=== PATIENT | male | born 1945 | race Caucasian/White ===

== ENCOUNTER → 2018-01-20 11:03 | Outpatient (CLI) | payer MEDICARE, SELFPAY ==
--- NOTE | 2018-01-20 | DI.CT.S_ITS ---
PROCEDURE: CT THORACIC SPINE WO CON INDICATIONS: RIGHT UPPER THORACIC PAIN TECHNIQUE: Noncontrast 3 mm thick sections acquired through the region of interest in the thoracic spine. Sagittal and coronal reformats were then constructed. For radiation dose reduction, the following was used: automated exposure control. COMPARISON: [facility], CT, LUMBAR OR SACRAL SPINE WO CONT, 02/25/2015, 15:19. [facility], CR, THORACIC SPINE 2 VIEWS, 02/25/2015, 8:36. [facility], CT, T-SPINE WITHOUT CONTRAST, 06/01/2014, 10:46. FINDINGS: Image quality: Excellent. Bones: T4 vertebroplasty again noted. There is extensive thoracic and lumbar posterior spinal instrumentation with paraspinal rods and pedicle screws extending from T4-L3 and beyond the study [id number]. Hardware appears grossly intact and unchanged alignment. No evidence of hardware loosening. No definite acute fracture is seen. There is chronic unchanged T9 and T10 compression fractures without definite vertebral body height loss since the prior study. There is diffuse osteopenia. No high-grade bony canal stenosis. On the right, there is moderate right T8-T9 bony foraminal narrowing and mild T9-T10, T10-T11 foraminal narrowing. On the left, there is moderate T8-T9 and T9-T10 bony foraminal narrowing. There is mild T10-T11 foraminal narrowing. Soft tissues: No paravertebral masses or hematomas. Visualized posteromedial lungs appear clear. Cardiomegaly and coronary artery calcifications are present. Partially visualized exophytic right renal lesion, is indeterminate and partially obscured by motion artifact, although appears to be present on the prior study from 02/25/15. Further evaluation with ultrasound could be performed as clinically warranted. Bilateral renal hilar vascular calcifications. IMPRESSION: Bilateral bony foraminal stenoses, primarily at the level of T8-T11 as detailed above. Overall, no definite interval change since 06/01/14 Chronic T9 and T10 compression fractures without progressive vertebral body height loss. Extensive posterior spinal surgical instrumentation from T4-L3, with paraspinal ynes and pedicle screws. Dictated by: William Mares M.D. on 01/20/2018 at 11:37 Approved by: William Mares M.D. on 01/20/2018 at 11:57
== END ==
PROVIDERS: Family Provider Internal Medicine; PCP Internal Medicine; Visit Provider Orthopaedic Surgery
DX: M48.04 Spinal stenosis, thoracic region (principal); M54.6 Pain in thoracic spine
CPT/HCPCS: 72128

== ENCOUNTER → 2018-04-12 14:44 | Outpatient (CLI) | payer MEDICARE, SELFPAY ==
--- NOTE | 2018-04-12 | DI.RAD.S_ITS ---
PROCEDURE: XR CHEST 2V INDICATIONS: CHRONIC DIASTOLIC HEART FAILURE TECHNIQUE: 2 views of the chest were acquired. COMPARISON: [facility], , CHEST 1 VIEW, 09/12/2017, 9:33. [facility], , CHEST 1 VIEW, 09/06/2017, 5:18. [facility], , CHEST 1 VIEW, 09/05/2017, 14:55. FINDINGS: Surgical changes and devices: Extensive spine surgery fixation devices stable over time. Lungs and pleura: No pleural effusions or pneumothorax. Lungs are edematous to a mild degree. Mediastinum: Mediastinal contours are normal. Heart size is mildly enlarged. Bones and chest wall: No suspicious bony abnormalities. Soft tissues appear unremarkable. IMPRESSION: Mild pulmonary edema pattern, mild cardiomegaly, prior extensive spine fusion surgery stable over time. Dictated by: Juan C James M.D. on 04/12/2018 at 15:43 Approved by: Juan C James M.D. on 04/12/2018 at 15:44
[2018-04-12 15:45] LABS: Add Manual Diff / Slide Review NO; Basophils Percent Auto 0.6 % (0-2); Eosinophils Percent Auto 2.2 % (2-4); Hematocrit 38.9 % (41-53); Hemoglobin 12.8 g/dL (13.5-17.5); Lymphocytes Percent Auto 19.2 % (25-40); Mean Corpuscular HGB Conc 32.9 % (30-36); Mean Corpuscular Volume 91.2 fL (80-100); Monocytes Percent Auto 8.2 % (3-14); Neutrophils Absolute Auto 6400 /uL (3000-5900); Neutrophils Percent Auto 69.8 % (50-75); Platelet Count 170 X10^3/uL (150-400); Red Blood Cell Count 4.27 X10^6/uL (4.5-5.9); Red Cell Distribution Width 15.3 % (11.6-14.8); White Blood Cell Count 9.2 X10^3/uL (4.5-11.0)
[2018-04-12 16:03] LABS: B Type Natriuretic Peptide 75.9 (<100)
[2018-04-12 21:22] LABS: Alanine Aminotransferase 21 IU/L (21-72); Albumin 3.7 g/dL (3.5-5.0); Albumin Globulin Ratio 1.4 (1.0-2.8); Alkaline Phosphatase 44 U/L (38-126); Aspartate Aminotransferase 12 IU/L (17-59); Bilirubin Total 0.4 mg/dL (0.2-1.3); Blood Urea Nitrogen 40 mg/dL (9-20); Carbon Dioxide 30 mmol/L (22-32); Chloride 97 mmol/L (98-107); Estimated Glomerular Filt Rate 32.9 mL/min (>60); Globulin 2.7 g/dL (1.7-4.1); Glucose 102 mg/dL (80-110); HEMOLYSIS < 15 (0-50); Sodium 140 mmol/L (137-145); Total Protein 6.4 g/dL (6.3-8.2)
[2018-04-12 21:31] LABS: Potassium 5.4 mmol/L (3.4-5.1)
== END ==
PROVIDERS: Family Provider Internal Medicine; PCP Internal Medicine; Visit Provider Student in an Organized Health Care Education/Training Program
DX: I11.0 Hypertensive heart disease with heart failure (principal); I50.32 Chronic diastolic (congestive) heart failure; E03.9 Hypothyroidism, unspecified; I25.10 Atherosclerotic heart disease of native coronary artery without angina pectoris; E11.9 Type 2 diabetes mellitus without complications; Z98.1 Arthrodesis status
CPT/HCPCS: 36415; 71046; 80053; 83880; 84443; 85025

== ENCOUNTER → 2018-04-13 10:17 | Outpatient (CLI) | payer MEDICARE, SELFPAY ==
[2018-04-13 12:07] LABS: Appearance Urine UA CLEAR; Bilirubin Urine UA NEGATIVE (NEGATIVE); Color Urine UA YELLOW; Glucose Urine UA NEGATIVE (Normal); Ketones Urine UA NEGATIVE (NEGATIVE); Leukocyte Esterase Urine UA NEGATIVE (NEGATIVE); Nitrite Urine UA Negative (Negative); Occult Blood Urine UA NEGATIVE (Negative); Protein Urine UA NEGATIVE (Negative); Specific Gravity Urine UA 1.015 (1.000-1.035); Urobilinogen Urine UA 0.2 E.U./dL (0.2)
== END ==
PROVIDERS: Family Provider Internal Medicine; PCP Internal Medicine; Visit Provider Student in an Organized Health Care Education/Training Program
DX: R41.0 Disorientation, unspecified (principal)
CPT/HCPCS: 81003; 87086

== ENCOUNTER → 2018-04-20 13:07 | Outpatient (CLI) | payer MEDICARE, SELFPAY ==
[2018-04-20 14:12] LABS: Blood Urea Nitrogen 36 mg/dL (9-20); Calcium 9.1 mg/dL (8.4-10.2); Carbon Dioxide 39 mmol/L (22-32); Chloride 96 mmol/L (98-107); Estimated Glomerular Filt Rate 59.3 mL/min (>60); Glucose 88 mg/dL (80-110); HEMOLYSIS < 15 (0-50); Potassium 5.1 mmol/L (3.4-5.1); Sodium 143 mmol/L (137-145)
== END ==
PROVIDERS: Family Provider Internal Medicine; PCP Internal Medicine; Visit Provider Internal Medicine
DX: N18.3 Chronic kidney disease, stage 3 (moderate) (principal); I50.32 Chronic diastolic (congestive) heart failure
CPT/HCPCS: 36415; 80048

== ENCOUNTER 2018-06-07 14:02 | Inpatient (IN) | payer MEDICARE, SELFPAY ==
[2018-06-07] VITALS (13 sets, daily range): BP systolic 97–129; BP diastolic 45–69; PULSE 50–64; RESP 16–20; TEMP 36.3–36.8; O2SAT 92–100; BMI 37.3; BMI 43.3
--- NOTE | 2018-06-07 | DI.ECHO.S_ITS ---
[facility] +---------+ : : [address] : : : : [id number] : : : : Phone: [phone]+ Echocardiogram Report + + :Name: ELAINE CAO Study Date: 06/08/2018 Height: 70 in : :[facility] Weight: 260 lb : : Gender: Male BSA: 2.3 m2 : :: 1945 Age: 73 yrs BP: 120/59 mmHg: :Reason For Study: COPD : : Performed By: Sarah Benson : :Referring: JOSE RAUL SAM : + + Interpretation Summary The study quality was technically difficult. A contrast injection of Definity was performed to improve assessment of LV function. The ejection fraction is estimated to be 60-65%. Borderline right ventricular enlargement. The aortic valve is moderately calcified. Leaflet mobility is moderately reduced. The aortic valve area is 1.8 centimeters squared by planimetry. There is mild tricuspid regurgitation. The right ventricular systolic pressure is estimated to be at least 52 mmHg based on an estimated right atrial pressure of 15 mm Hg. The IVC is dilated (diameter is greater than 2.1 cm) and it collapses less than 50% with a sniff. This suggests a high right atrial pressure of 15 mm Hg. The aortic arch is mildly enlarged. Procedure: A two-dimensional transthoracic echocardiogram with color flow and Doppler was performed. The study quality was technically difficult. Comparison is made with the echocardiogram of 09-06-17. A contrast injection of Definity was performed to improve assessment of LV function. The heart rate ranged between 73-76 bpm during the study. Left Ventricle: The left ventricle is normal in size, wall thickness, and systolic function without any focal wall motion abnormalities. The ejection fraction is estimated to be 60-65%. Left ventricular wall motion is normal. Diastolic function could not be accurately assessed due to unobtainable data. Right Ventricle: Borderline right ventricular enlargement. Right ventricular systolic function is mildly reduced. Atria: The left atrium is not well visualized. Right atrial size is normal. The interatrial septum is intact with no evidence for an atrial septal defect. Mitral Valve: The mitral valve is grossly normal. There is no mitral regurgitation noted. Aortic Valve: The aortic valve is moderately calcified. Leaflet mobility is moderately reduced. The calculated aortic valve area is 2.5 cm2. The aortic valve area is 1.8 centimeters squared by planimetry. The peak aortic velocity is 1.9 m/sec. The peak aortic velocity on the previous exam was 1.2 m/sec. The aortic valve mean gradient is 6 mmHg. No aortic regurgitation is present. Tricuspid Valve: The tricuspid valve leaflets are thin and pliable. There is mild tricuspid regurgitation. The right ventricular systolic pressure is estimated to be at least 52 mmHg based on an estimated right atrial pressure of 15 mm Hg. Pulmonic Valve: The pulmonic valve is not well seen, but is grossly normal. There is trace pulmonic regurgitation. Great Vessels: The aortic root is mildly dilated. The ascending aorta is at the upper limits of normal in size. The aortic arch is mildly enlarged. The IVC is dilated (diameter is greater than 2.1 cm) and it collapses less than 50% with a sniff. This suggests a high right atrial pressure of 15 mm Hg. Pericardium/ Pleura There is a trivial to small pericardial effusion noted. There is no pleural effusion. MMode/2D Measurements & Calculations LVIDd: 4.5 cm LVOT diam: 2.7 cm LVIDs: 2.8 cm Ao root diam: 3.9 cm FS: 37.4 % Aortic Jxn: 3.1 cm EPSS: 0.93 cm asc Aorta Diam: 3.5 cm IVSd: 0.96 cm Ao Arch Diam (Prox Trans): 3.7 cm LVPWd: 0.74 cm LV estes. diameter/BSA (cm/m^2): 1.9 LV sys. diameter/BSA (cm/m^2): 1.2 LA dimension: 4.0 cm RA long axis: 5.8 cm RA area: 20.7 cm2 RA vol: 63.0 ml RA : 27.0 ml/m2 IVC diam: 2.5 cm RVDd major: 7.1 cm RVD1 (basal): 4.2 cm RVD2 (mid): 3.7 cm MERON (plan): 1.8 cm2 Doppler Measurements & Calculations Ao V2 max: 188.2 cm/sec LVOT Max Cristóbal: 84.3 cm/sec Ao V2 mean: 103.6 cm/sec LV V1 max P.8 mmHg Ao max P.2 mmHg LV V1 VTI: 20.5 cm Ao mean P.6 mmHg MERON(I,D): 3.5 cm2 Ao V2 VTI: 32.8 cm MERON(V,D): 2.5 cm2 sev ratio: 0.62 MERON indexed to BSA (cm^2/m^2): 1.5 MV E max cristóbal: 66.4 cm/sec TR max cristóbal: 304.9 cm/sec MV A max cristóbal: 82.0 cm/sec TR max P.2 mmHg MV E/A: 0.81 PA V2 max: 105.8 cm/sec Med Peak E' Cristóbal: 6.9 cm/sec PA V2 mean: 62.7 cm/sec E/E' med: 9.6 PA mean P.0 mmHg Lat Peak E' Cristóbal: 6.4 cm/sec PA Accel Time: 0.16 sec E/E' lat: 10.3 E/e' average: 9.9 MV dec time: 0.29 sec MV P1/2t: 83.7 msec MV P1/2t max cristóbal: 66.1 cm/sec MVA(P1/2t): 2.6 cm2 Reading Physician:02:29 PM
--- NOTE | 2018-06-07 14:18 | ED.AMS ---
HPI - Altered Mental Status General Chief Complaint: Shortness of Breath/Dyspnea Stated Complaint: ALOC Time Seen by Provider: 06/07/18 14:10 Source: EMS Mode of arrival: EMS Limitations: altered mental status History of Present Illness HPI narrative: 73-year-old male brought in by EMS for concerns of altered mental status. Unable to obtain much more min HPI secondary to the patient's altered mental status. Some concern about narcotic overdose by EMS. He did state that they found the patient at home hypoxic with a oxygen saturations in the 50s with a good waveform. This did improve with non-rebreather on 15 L. Related Data Home Medications Medication Instructions Recorded Confirmed albuterol sulfate [Ventolin HFA] 2 puff INH Q6HP PRN #0 puff 05/20/13 06/07/18 lisinopril 5 mg PO HS #0 tab 05/20/13 06/07/18 polyethylene glycol 3350 [Miralax] 17 gm PO QDAYP PRN #0 05/20/13 06/07/18 diazepam 5 mg PO HSP PRN #0 09/05/17 06/07/18 gabapentin [Neurontin] 600 mg PO BEDTIME #0 09/05/17 06/07/18 glimepiride 1 mg PO BIDCC #0 09/05/17 06/07/18 levothyroxine 1 tab PO QAM #0 09/05/17 06/07/18 oxycodone 5 mg PO Q3H #0 09/05/17 06/07/18 oxycodone 10 mg PO QDAY #0 09/05/17 06/07/18 acetaminophen 2 - 5 cap PO DAILY 06/07/18 06/07/18 aspirin 81 mg PO DAILY 06/07/18 06/07/18 atorvastatin 1 tab PO BEDTIME 06/07/18 06/07/18 beclomethasone dipropionate [Qvar 2 puff INHALATION BID PRN 06/07/18 06/07/18 RediHaler] cholecalciferol (vitamin D3) 1,000 unit PO DAILY 06/07/18 06/07/18 [Vitamin D3] cyclobenzaprine 1 tab PO TID PRN 06/07/18 06/07/18 docusate sodium 100 mg PO DAILY PRN 06/07/18 06/07/18 doxazosin 8 mg PO DAILY 06/07/18 06/07/18 furosemide 40 mg PO DAILY 06/07/18 06/07/18 gabapentin 900 mg PO TID 06/07/18 06/07/18 levothyroxine 1 tab PO DAILY 06/07/18 06/07/18 multivitamin 1 tab PO DAILY 06/07/18 06/07/18 nitroglycerin 0.4 mg SUBLINGUAL Q5-15M PRN 06/07/18 06/07/18 omega [id number] oil [Fish Oil] 1 cap PO DAILY 06/07/18 06/07/18 oxybutynin chloride 1 tab PO BID 06/07/18 06/07/18 pantoprazole 1 tab PO DAILY 06/07/18 06/07/18 propranolol 1 tab PO TID 06/07/18 06/07/18 triamcinolone acetonide 1 applic TOPICAL BID 06/07/18 06/07/18 Allergies Allergy/AdvReac Type Severity Reaction Status Date / Time fentanyl [FENTANYL] Allergy Severe HIVES, Verified 06/07/18 14:48 ITCHING iodine [IODINE] Allergy Severe RASH - Verified 06/07/18 14:48 TOPICAL AND IV CONTRAST shellfish derived Allergy Severe Abdominal Verified 06/07/18 14:48 [SHELLFISH DERIVED] Pain cyclobenzaprine Allergy Intermediate ITCHING Verified 06/07/18 14:48 [CYCLOBENZAPRINE] diclofenac [DICLOFENAC] Allergy Intermediate ITCHING Verified 06/07/18 14:48 methadone [METHADONE] Allergy Intermediate ITCHING Verified 06/07/18 14:48 hydromorphone [HYDROMORPHONE] Allergy Mild ITCHING Verified 06/07/18 14:48 hydroxyzine [HYDROXYZINE] Allergy Mild FEVER, Verified 06/07/18 14:48 SWEATS ibuprofen [IBUPROFEN] Allergy Unknown Verified 06/07/18 14:48 aspirin [ASPIRIN] AdvReac Severe STOMACH Verified 06/07/18 14:48 PAIN & HIVE W/325MG, CAN TAKE 81 MG solifenacin [From [facility]ESICARE] AdvReac Unknown INCREASE Unverified 11/25/17 12:09 PVR AND URINARY SX RACHEL AdvReac Unknown DOES NOT Uncoded 11/25/17 12:09 WORK Review of Systems Review of Systems unobtainable due to mental status Exam Initial Vital Signs Initial Vital Signs: Vital Signs Temperature 98.2 F 06/07/18 14:00 Pulse Rate 56 L 06/07/18 14:00 Respiratory Rate 20 06/07/18 14:00 Blood Pressure 117/55 L 06/07/18 14:00 Pulse Oximetry 96 06/07/18 14:00 Const General: in distress and diaphoretic Orientation: obtunded Limitations: altered mental status [facility] Head: normal to inspection and normocephalic Eyes Pupils: pinpoint and other (Pupils 2 mm fixed dilated) Chest Chest: normal inspection of the chest Resp Effort & Inspection: not labored, no retractions and tachypneic Auscultation: diminished lung sounds Cardio Rate: bradycardic Rhythm: regular rhythm Pulses: radial pulses present GI Inspection: non-distended Palpation: soft External: normal external exam Skin Lesions: no lesions Rashes: no rashes Neuro Other: Patient was arousable to deep stimulation however would not follow commands. Unable to obtain neurologic exam otherwise Extrem General: capillary refill normal, edema and other (Bilateral chronic venous stasis changes) Psych Appearance: disheveled Procedures Intubation Time out performed: Yes sedative: Etomidate Mg Given: 20 paralytic: Succinylcholine Mg Given: 120 Laryngoscope: other ([place] scope) ET Tube Size: 7.5 ET Tube Uncuffed: No Tube Secured Depth (cm): 22 Tube Secured Location: teeth Tube Placement Confirmation: Visualized tube passing through cords, Equal breath sounds bilaterally, No breath sounds over epigastrium, Confirmation by capnometry and Chest Xray Patient Tolerated Procedure: No complications Intubation Complications: none Scores GCS Combs coma scale eye opening: To pressure Lucho coma scale verbal response: Sounds Combs coma scale motor response: None Combs coma scale total score: 5 Course Orders Ordered: ED Orders 06/07/18 14:19 Arterial Blood Gas Stat 06/07/18 14:20 XR chest 1V Stat EKG-12 Lead Stat 06/07/18 14:25 Arterial Blood Gas Stat 06/07/18 15:00 B Type Natriuretic Peptide Stat Complete Blood Count AUTO DIFF Stat Comprehensive Metabolic Panel Stat Ethanol (ETOH) Stat Lactate (Lactic Acid) Stat Lipase Stat Procalcitonin Stat Thyroid Stimulating Hormone Stat Troponin I Stat 06/07/18 15:43 XR chest 1V Stat 06/07/18 16:09 CT chest wo con Stat 06/07/18 16:49 RT Consult Eval and Treat Now 06/07/18 16:53 Ventilator Order 06/07/18 17:35 Blood Culture Stat Troponin I Stat 06/07/18 19:00 MRSA PCR Urgent 06/07/18 19:01 Consult to Dietitian, Adult Routine 06/07/18 20:26 XR KUB Stat 06/08/18 05:00 Basic Metabolic Panel Routine Complete Blood Count AUTO DIFF Routine Albuterol/Ipratropium (Duoneb) 3 ml INH RTQ6HR PRN PRN Reason: Shortness Of Breath Furosemide (Lasix) 40 mg IV Q12HR LUIS FELIPE Heparin Sodium (Porcine) (Heparin) 5,000 unit SUBCUT BID LUIS FELIPE Levofloxacin (Levaquin) 750 mg in 150 mls @ 100 mls/hr IV Q24H LUIS FELIPE Propofol (Propofol) 1,000 mg in 100 mls @ 3.538 mls/hr IV TITRATE LUIS FELIPE; Protocol Last Admin: 06/07/18 19:21 Dose: Naloxone HCl (Narcan) 0.4 mg IV Q2MIN PRN PRN Reason: Opiate Reversal Last Admin: 06/07/18 14:21 Dose: 0.4 mg Naloxone HCl (Narcan) 0.4 mg IV Q2MIN PRN PRN Reason: Opiate Reversal Last Admin: 06/07/18 14:30 Dose: 0.4 mg Pantoprazole Sodium (Protonix) 40 mg IV DAILY LUIS FELIPE Discontinued Medications Etomidate (Amidate) 20 mg IV NOW ONE Stop: 06/07/18 15:49 Last Admin: 06/07/18 16:04 Dose: 20 mg Furosemide (Lasix) 60 mg IV NOW ONE Stop: 06/07/18 16:09 Last Admin: 06/07/18 17:23 Dose: 60 mg Sodium Chloride (Normal Saline 0.9%) 1,000 mls @ 1,000 mls/hr IV BOLUS ONE Stop: 06/07/18 15:17 Last Infusion: 06/07/18 17:14 Dose: 0 mls/hr Admin: 06/07/18 14:30 Dose: 1,000 mls/hr Lactated Ringer's (Lactated Ringers) 1,000 mls @ 1,000 mls/hr IV BOLUS ONE Stop: 06/07/18 16:42 Last Infusion: 06/07/18 17:14 Dose: 0 mls/hr Admin: 06/07/18 16:03 Dose: 1,000 mls/hr Levofloxacin (Levaquin) 750 mg in 150 mls @ 100 mls/hr IV NOW ONE Stop: 06/07/18 17:13 Last Admin: 06/07/18 16:05 Dose: 100 mls/hr Propofol (Propofol) 1,000 mg in 100 mls @ 3.538 mls/hr IV TITRATE LUIS FELIPE; Protocol Last Titration: 06/07/18 18:55 Dose: 20 mcg/kg/min, 14.152 mls/hr Titration: 06/07/18 18:40 Dose: 10 mcg/kg/min, 7.076 mls/hr Admin: 06/07/18 16:09 Dose: 5 mcg/kg/min, 3.538 mls/hr Fentanyl 1,000 mcg/ Dextrose 270 mls @ 22.28 mls/hr IV TITRATE LUIS FELIPE; Protocol Last Admin: 06/07/18 20:01 Dose: Not Given Succinylcholine Chloride (Quelicin) 120 mg IV NOW ONE Stop: 06/07/18 15:49 Last Admin: 06/07/18 16:04 Dose: 120 mg Vital Signs - 8 hr 06/07/18 14:00 06/07/18 16:09 06/07/18 17:47 Temperature 98.2 F Pulse Rate 56 L 52 L 53 L Respiratory Rate 20 18 16 Blood Pressure 117/55 L Blood Pressure [Right Arm] 103/45 L 115/50 L Pulse Oximetry 96 92 96 06/07/18 18:02 06/07/18 18:29 06/07/18 19:00 Temperature 98.0 F Pulse Rate 50 L 54 L 54 L Respiratory Rate 18 18 19 Blood Pressure 97/55 L 129/58 L Blood Pressure [Right Arm] 104/53 L Pulse Oximetry 95 97 MDM - Altered Mental Status Medical Records Attestation: I reviewed the patient's medical records. Lab Data Attestation: I reviewed the patient's lab results. Result diagrams: 06/07/18 15:00 06/07/18 15:00 Lab Results 06/07/18 06/07/18 06/07/18 Range/Units 14:25 15:00 15:00 WBC 10.0 (4.5-11.0) X10^3/uL RBC 4.50 (4.5-5.9) X10^6/uL Hgb 12.9 L (13.5-17.5) g/dL Hct 41.5 (41-53) % MCV 92.1 (80-100) fL MCH 28.7 (26-34) PG MCHC 31.1 (30-36) % RDW 16.7 H (11.6-14.8) % Plt Count 171 (150-400) X10^3/uL Neut % (Auto) 76.5 H (50-75) % Lymph % (Auto) 12.8 L (25-40) % [place] % (Auto) 8.5 (3-14) % Eos % (Auto) 1.6 L (2-4) % Baso % (Auto) 0.6 (0-2) % Neut # (Auto) 7700 H (6602-9075) /uL ABG pH 7.17 L* (7.35-7.45) ABG pCO2 114.4 H* (35-45) mmHg ABG pO2 107 H (80-105) mmHg ABG HCO3 42 H (23-27) mmol/L ABG Total CO2 45 H (23-27) mmol/L ABG O2 Saturation 96 (95-100) % ABG Base Excess 13.0 H (-2-3) mmol/L FiO2 100 Sodium 143 (137-145) mmol/L Potassium 4.8 (3.4-5.1) mmol/L Chloride 95 L (98-107) mmol/L Carbon Dioxide 38 H (22-32) mmol/L BUN 40 H (9-20) mg/dL Creatinine 1.30 H (0.66-1.25) mg/dL Estimated GFR 54.1 L (>60) mL/min BUN/Creatinine Ratio 30.8 H (6-22) Glucose 164 H (80-110) mg/dL Lactate (0.7-2.1) mmol/L Calcium 8.5 (8.4-10.2) mg/dL Total Bilirubin 0.7 (0.2-1.3) mg/dL AST 13 L (17-59) IU/L ALT 24 (21-72) IU/L Alkaline Phosphatase 44 (38-126) U/L Troponin I 0.065 H (0.01-0.034) ng/mL B-Natriuretic Peptide 289.0 H (<100) Total Protein 6.4 (6.3-8.2) g/dL Albumin 3.6 (3.5-5.0) g/dL Globulin 2.8 (1.7-4.1) g/dL Albumin/Globulin Ratio 1.3 (1.0-2.8) Lipase < 10 L (23-300) U/L Procalcitonin (<0.5) ng/mL TSH (0.47-4.68) uIU/mL Ethyl Alcohol < 10 mg/dL 06/07/18 06/07/18 06/07/18 Range/Units 15:00 15:00 15:00 WBC (4.5-11.0) X10^3/uL RBC (4.5-5.9) X10^6/uL Hgb (13.5-17.5) g/dL Hct (41-53) % MCV (80-100) fL MCH (26-34) PG MCHC (30-36) % RDW (11.6-14.8) % Plt Count (150-400) X10^3/uL Neut % (Auto) (50-75) % Lymph % (Auto) (25-40) % [place] % (Auto) (3-14) % Eos % (Auto) (2-4) % Baso % (Auto) (0-2) % Neut # (Auto) (0335-7839) /uL ABG pH (7.35-7.45) ABG pCO2 (35-45) mmHg ABG pO2 (80-105) mmHg ABG HCO3 (23-27) mmol/L ABG Total CO2 (23-27) mmol/L ABG O2 Saturation (95-100) % ABG Base Excess (-2-3) mmol/L FiO2 Sodium (137-145) mmol/L Potassium (3.4-5.1) mmol/L Chloride (98-107) mmol/L Carbon Dioxide (22-32) mmol/L BUN (9-20) mg/dL Creatinine (0.66-1.25) mg/dL Estimated GFR (>60) mL/min BUN/Creatinine Ratio (6-22) Glucose (80-110) mg/dL Lactate 0.8 (0.7-2.1) mmol/L Calcium (8.4-10.2) mg/dL Total Bilirubin (0.2-1.3) mg/dL AST (17-59) IU/L ALT (21-72) IU/L Alkaline Phosphatase (38-126) U/L Troponin I (0.01-0.034) ng/mL B-Natriuretic Peptide (<100) Total Protein (6.3-8.2) g/dL Albumin (3.5-5.0) g/dL Globulin (1.7-4.1) g/dL Albumin/Globulin Ratio (1.0-2.8) Lipase (23-300) U/L Procalcitonin < 0.05 (<0.5) ng/mL TSH 0.40 L (0.47-4.68) uIU/mL Ethyl Alcohol mg/dL 06/07/18 Range/Units 17:35 WBC (4.5-11.0) X10^3/uL RBC (4.5-5.9) X10^6/uL Hgb (13.5-17.5) g/dL Hct (41-53) % MCV (80-100) fL MCH (26-34) PG MCHC (30-36) % RDW (11.6-14.8) % Plt Count (150-400) X10^3/uL Neut % (Auto) (50-75) % Lymph % (Auto) (25-40) % [place] % (Auto) (3-14) % Eos % (Auto) (2-4) % Baso % (Auto) (0-2) % Neut # (Auto) (0273-3497) /uL ABG pH (7.35-7.45) ABG pCO2 (35-45) mmHg ABG pO2 (80-105) mmHg ABG HCO3 (23-27) mmol/L ABG Total CO2 (23-27) mmol/L ABG O2 Saturation (95-100) % ABG Base Excess (-2-3) mmol/L FiO2 Sodium (137-145) mmol/L Potassium (3.4-5.1) mmol/L Chloride (98-107) mmol/L Carbon Dioxide (22-32) mmol/L BUN (9-20) mg/dL Creatinine (0.66-1.25) mg/dL Estimated GFR (>60) mL/min BUN/Creatinine Ratio (6-22) Glucose (80-110) mg/dL Lactate (0.7-2.1) mmol/L Calcium (8.4-10.2) mg/dL Total Bilirubin (0.2-1.3) mg/dL AST (17-59) IU/L ALT (21-72) IU/L Alkaline Phosphatase (38-126) U/L Troponin I 0.078 H (0.01-0.034) ng/mL B-Natriuretic Peptide (<100) Total Protein (6.3-8.2) g/dL Albumin (3.5-5.0) g/dL Globulin (1.7-4.1) g/dL Albumin/Globulin Ratio (1.0-2.8) Lipase (23-300) U/L Procalcitonin (<0.5) ng/mL TSH (0.47-4.68) uIU/mL Ethyl Alcohol mg/dL Point of Care Testing Glucose POC 152 Urine Dip Bedside Urine Glucose Negative Bedside Urine Bilirubin - Negative Bedside Urine Ketone - Negative Urine Specific [place] 1.020 Bedside Urine Occult Blood - Negative Bedside Urine pH 6.0 Bedside Urine Protein - Negative Bedside Urine Urobilinogen - Negative Bedside Urine Nitrite - Negative Bedside Urine Leukocytes - Negative Esterase ABG Data Attestation: I personally reviewed and interpreted this ABG as follows: Interpretation: Respiratory acidosis pH 7.1 P CO2 of 114 bicarb 41 Imaging Data Chest x-ray: Radiologist's impression: PROCEDURE: XR CHEST 1V INDICATIONS: shortness of breath TECHNIQUE: One view of the chest was acquired. COMPARISON: [facility], , XR CHEST 2V, 04/12/2018, 14:26. FINDINGS: Surgical changes and devices: Extensive postoperative changes of the spine are evident. Lungs and pleura: There are low lung volumes and the patient is in somewhat lordotic positioning, resulting in difficulty evaluating the lungs, particularly at the lung bases. There is developing airspace disease identified at the left lung base that obscures the diaphragm. Prominent perihilar interstitial markings are present. Mediastinum: Mediastinal contours appear normal. The heart is enlarged. There is aortic atherosclerosis. Bones and chest wall: No suspicious bony lesions. Overlying soft tissues appear unremarkable. IMPRESSION: 1. Left basilar consolidation is suspicious for pneumonia versus atelectasis. 2. Cardiomegaly with probable developing pulmonary edema. Dictated by: Jean-Pierre Johnson M.D. on 06/07/2018 at 14:32 Approved by: Jean-Pierre Johnson M.D. on 06/07/2018 at 14:33 Chest x-ray post intubation: Radiologist's impression: [address] [address] XRay Report Signed Patient: Bossman Denton CMR#: [id number] : 5Acct:[id number] Age/Sex: 73 / MDate of Service: 06/07/18 Loc: [id number] Accession Number: [id number] Procedure: XR chest 1V Ordering Provider: Bossman Purdy D.O. PROCEDURE: XR CHEST 1V INDICATIONS: post intubation TECHNIQUE: One view of the chest was acquired. COMPARISON: [facility], , XR CHEST 1V, 06/07/2018, 15:09. FINDINGS: Surgical changes and devices: There has been interval placement of an endotracheal tube, which is positioned approximately 6.4 cm above the level of the gareth. Postoperative changes of the thoracolumbar spine are not adequately characterized. Lungs and pleura: Mild interval improvement in the aeration of the lungs is evident with improving aeration at the left lung base. There continues to be mild to moderate consolidation at the left lung base with possible small left-sided pleural effusion. There may also be mild airspace disease at the right lung base. Mediastinum: Mediastinal contours appear normal. Heart size is normal. Bones and chest wall: No suspicious bony lesions. Overlying soft tissues appear unremarkable. IMPRESSION: 1. Improved aeration of the lungs, status post intubation. 2. Residual bibasilar airspace disease probably represents atelectasis and/or pneumonia. There may be a small left-sided pleural effusion. Dictated by: Jean-Pierre Johnson M.D. on 06/07/2018 at 15:08 Approved by: Jean-Pierre Johnson M.D. on 06/07/2018 at 15:09 ECG Data Attestation: I personally reviewed and interpreted this ECG as follows: Prior ECG tracings: not available for review Interpretation: Sinus bradycardia Normal axis QRS duration 153 milliseconds Normal QTC Right bundle branch block No ST T wave changes MDM Narrative Medical decision making narrative: Patient was given 2 separate doses of 0.4 mg of Narcan upon arrival here to the emergency department which did improve his responsiveness somewhat. I have seen this patient in the past. He is a COPD patient I have seen him with a very elevated CO2 in the past and respond to BiPAP. He was placed on BiPAP. I discussed the case with the hospitalist who came to evaluate him in the emergency department. Upon her evaluation she asked me to re-evaluate the patient seeing as how he was very unresponsive. Upon my re-evaluation the patient was much more up tended then initially arriving here in the emergency department the decision was made to intubate the patient which was done without problems with the glide scope. Sedation was maintained with propofol. The chest CT was ordered per recommendation of the admitting provider while the patient was still here in the emergency department. She will follow up on the results of that study. Will admit the patient to the ICU for respiratory acidosis most likely secondary to his COPD exacerbation. Patient's is at bedside and she knows this admission and agrees with the admission. She also agreed with the intubation. Discharge Plan Departure Patient Disposition: Admitted As Inpatient Clinical Impression: COPD (chronic obstructive pulmonary disease), Hypoxia, Altered mental status Discharge Date/Time: 06/07/18 18:29 Interventions: ED Discharge Assessment Last Done: 06/07/18 18:29 Admit Date/Time: 06/07/18 16:02 Admit Provider: Evette Garcia
[2018-06-07] MEDS: NALOXONE 0.4 MG/ML VIAL IV ×2 (14:21→14:30)
[2018-06-07] MEDS: SODIUM CHLORIDE 0.9% 1,000 ML 1000 ML IV (14:30)
[2018-06-07 15:10] LABS: Add Manual Diff / Slide Review NO; Basophils Percent Auto 0.6 % (0-2); Eosinophils Percent Auto 1.6 % (2-4); Hematocrit 41.5 % (41-53); Hemoglobin 12.9 g/dL (13.5-17.5); Lymphocytes Percent Auto 12.8 % (25-40); Mean Corpuscular HGB Conc 31.1 % (30-36); Mean Corpuscular Hemoglobin 28.7 PG (26-34); Mean Corpuscular Volume 92.1 fL (80-100); Monocytes Percent Auto 8.5 % (3-14); Neutrophils Absolute Auto 7700 /uL (3000-5900); Neutrophils Percent Auto 76.5 % (50-75); Platelet Count 171 X10^3/uL (150-400); Red Cell Distribution Width 16.7 % (11.6-14.8)
[2018-06-07 15:16] LABS: Fractionated Inspired Oxygen 100; HCO3 ABG 42 mmol/L (23-27); Oxygen Saturation ABG 96 % (95-100); PCO2 ABG 114.4 mmHg (35-45); PO2 ABG 107 mmHg (80-105); TCO2 ABG 45 mmol/L (23-27); pH ABG 7.17 (7.35-7.45)
[2018-06-07 15:22] LABS: Lactate (Lactic Acid) 0.8 mmol/L (0.7-2.1)
[2018-06-07 15:24] LABS: Alanine Aminotransferase 24 IU/L (21-72); Albumin 3.6 g/dL (3.5-5.0); Albumin Globulin Ratio 1.3 (1.0-2.8); Alkaline Phosphatase 44 U/L (38-126); Aspartate Aminotransferase 13 IU/L (17-59); BUN Creatinine Ratio 30.8 (6-22); Bilirubin Total 0.7 mg/dL (0.2-1.3); Blood Urea Nitrogen 40 mg/dL (9-20); Calcium 8.5 mg/dL (8.4-10.2); Chloride 95 mmol/L (98-107); Estimated Glomerular Filt Rate 54.1 mL/min (>60); Ethanol (ETOH) < 10 mg/dL; Globulin 2.8 g/dL (1.7-4.1); Glucose 164 mg/dL (80-110); HEMOLYSIS < 15 (0-50); Potassium 4.8 mmol/L (3.4-5.1); Sodium 143 mmol/L (137-145); Total Protein 6.4 g/dL (6.3-8.2)
[2018-06-07 15:25] LABS: Lipase < 10 U/L (23-300)
[2018-06-07 15:35] LABS: Troponin I 0.065 ng/mL (0.01-0.034)
[2018-06-07 15:42] LABS: Carbon Dioxide 38 mmol/L (22-32)
--- NOTE | 2018-06-07 15:43 | DI.RAD.S_ITS ---
PROCEDURE: XR CHEST 1V INDICATIONS: post intubation TECHNIQUE: One view of the chest was acquired. COMPARISON: [facility], CR, XR CHEST 1V, 06/07/2018, 15:09. FINDINGS: Surgical changes and devices: There has been interval placement of an endotracheal tube, which is positioned approximately 6.4 cm above the level of the gareth. Postoperative changes of the thoracolumbar spine are not adequately characterized. Lungs and pleura: Mild interval improvement in the aeration of the lungs is evident with improving aeration at the left lung base. There continues to be mild to moderate consolidation at the left lung base with possible small left-sided pleural effusion. There may also be mild airspace disease at the right lung base. Mediastinum: Mediastinal contours appear normal. Heart size is normal. Bones and chest wall: No suspicious bony lesions. Overlying soft tissues appear unremarkable. IMPRESSION: 1. Improved aeration of the lungs, status post intubation. 2. Residual bibasilar airspace disease probably represents atelectasis and/or pneumonia. There may be a small left-sided pleural effusion. Dictated by: Jean-Pierre Johnson M.D. on 06/07/2018 at 15:08 Approved by: Jean-Pierre Johnson M.D. on 06/07/2018 at 15:09
[2018-06-07 15:50] LABS: Procalcitonin < 0.05 ng/mL (<0.5)
--- NOTE | 2018-06-07 15:51 | PM.HP.1 ---
History of Present Illness Date Patient Seen: 06/07/18 Time Patient Seen: 15:51 Chief complaint: ALOC Narrative: 73-year-old male with past medical history of CHF, COPD on trilogy but non compliant with the machine, hypertension, CAD status post stenting, hypothyroidism, hyperlipidemia, anemia, diabetes presented to emergency department due to altered mental status. As per patient's , she has noted patient to become increasingly lethargic and unresponsive over the course of the week. She has noted patient to be with decreased p.o. intake, sleeping a lot more, getting out of bed most frequently over the past week. She has not noted patient to have any fevers or chills, with nausea/vomiting, complains of shortness of breath, complains of abdominal pain, complains of symptoms. Today patient has not been answering her questions, or fallowing much of her commands, so she called an ambulance for the patient. As per EMS, patient was found to be hypoxic and 50s, and was placed on BiPAP EN route to the hospital. In the emergency department, patient was initially found to be lethargic, but following minimal commands. He is afebrile, with stable blood pressure, and pulse of 56. He was saturating 96% on BiPAP. He was given .4x2 narcan with mild improvement in mentation. ABG performed, which showed 7.1/114/107. Lab work revealed WBCs of 10, hemoglobin 12.9, hematocrit 41.5, platelets 171. Sodium 143, potassium 4.8, chloride 95, carbon dioxide 38, BUN 40, creatinine 0.3, glucose 164. Lactate was 0.8. BNP was 289. Procalcitonin was 0.05. Chest x-ray performed, which showed left basilar consolidation suspicious for pneumonia versus atelectasis, and cardiomegaly with probable developing pulmonary edema (however it was difficult to evaluate patient's lungs on this x-ray due to body habitus and positioning). Patient was continued on BiPAP over the course of 1-2 hours. Nevertheless, his condition continued to deteriorate, and patient became unresponsive around 3:30 p.m. the decision was then made to intubate the patient and transfer to ICU for further care. He was given levofloxacin 750 mg IV, Lasix 40 mg IV, and CT chest was performed. Patient History Medical History COPD (chronic obstructive pulmonary disease) (Acute) Diastolic CHF (Acute) Anemia (Chronic) CAD (coronary artery disease), [place] coronary artery (Chronic) Diabetes mellitus (Chronic) GERD (gastroesophageal reflux disease) (Chronic) HLD (hyperlipidemia) (Chronic) HTN (hypertension) (Chronic) Surgical History H/O abdominal surgery (Chronic) Family & Social History Social History: Quit Tobacco use Sep 2017 As per , no alcohol or other drug use Lives with Meds Home Medications Medication Instructions Recorded Confirmed Type albuterol sulfate [Ventolin HFA] 2 puff INH Q6HP PRN #0 puff 05/20/13 06/07/18 History lisinopril 5 mg PO HS #0 tab 05/20/13 06/07/18 History polyethylene glycol 3350 [Miralax] 17 gm PO QDAYP PRN #0 05/20/13 06/07/18 History diazepam 5 mg PO HSP PRN #0 09/05/17 06/07/18 History gabapentin [Neurontin] 600 mg PO BEDTIME #0 09/05/17 06/07/18 History glimepiride 1 mg PO BIDCC #0 09/05/17 06/07/18 History levothyroxine 1 tab PO QAM #0 09/05/17 06/07/18 History oxycodone 5 mg PO Q3H #0 09/05/17 06/07/18 History oxycodone 10 mg PO QDAY #0 09/05/17 06/07/18 History acetaminophen 2 - 5 cap PO DAILY 06/07/18 06/07/18 History aspirin 81 mg PO DAILY 06/07/18 06/07/18 History atorvastatin 1 tab PO BEDTIME 06/07/18 06/07/18 History beclomethasone dipropionate [Qvar 2 puff INHALATION BID PRN 06/07/18 06/07/18 History RediHaler] cholecalciferol (vitamin D3) 1,000 unit PO DAILY 06/07/18 06/07/18 History [Vitamin D3] cyclobenzaprine 1 tab PO TID PRN 06/07/18 06/07/18 History docusate sodium 100 mg PO DAILY PRN 06/07/18 06/07/18 History doxazosin 8 mg PO DAILY 06/07/18 06/07/18 History furosemide 40 mg PO DAILY 06/07/18 06/07/18 History gabapentin 900 mg PO TID 06/07/18 06/07/18 History levothyroxine 1 tab PO DAILY 06/07/18 06/07/18 History multivitamin 1 tab PO DAILY 06/07/18 06/07/18 History nitroglycerin 0.4 mg SUBLINGUAL Q5-15M PRN 06/07/18 06/07/18 History omega [id number] oil [Fish Oil] 1 cap PO DAILY 06/07/18 06/07/18 History oxybutynin chloride 1 tab PO BID 06/07/18 06/07/18 History pantoprazole 1 tab PO DAILY 06/07/18 06/07/18 History propranolol 1 tab PO TID 06/07/18 06/07/18 History triamcinolone acetonide 1 applic TOPICAL BID 06/07/18 06/07/18 History Allergies Allergy/AdvReac Type Severity Reaction Status Date / Time fentanyl [FENTANYL] Allergy Severe HIVES, Verified 06/07/18 14:48 ITCHING iodine [IODINE] Allergy Severe RASH - Verified 06/07/18 14:48 TOPICAL AND IV CONTRAST shellfish derived Allergy Severe Abdominal Verified 06/07/18 14:48 [SHELLFISH DERIVED] Pain cyclobenzaprine Allergy Intermediate ITCHING Verified 06/07/18 14:48 [CYCLOBENZAPRINE] diclofenac [DICLOFENAC] Allergy Intermediate ITCHING Verified 06/07/18 14:48 methadone [METHADONE] Allergy Intermediate ITCHING Verified 06/07/18 14:48 hydromorphone [HYDROMORPHONE] Allergy Mild ITCHING Verified 06/07/18 14:48 hydroxyzine [HYDROXYZINE] Allergy Mild FEVER, Verified 06/07/18 14:48 SWEATS ibuprofen [IBUPROFEN] Allergy Unknown Verified 06/07/18 14:48 aspirin [ASPIRIN] AdvReac Severe STOMACH Verified 06/07/18 14:48 PAIN & HIVE W/325MG, CAN TAKE 81 MG solifenacin [From [facility]] AdvReac Unknown INCREASE Unverified 11/25/17 12:09 PVR AND URINARY SX RACHEL AdvReac Unknown DOES NOT Uncoded 11/25/17 12:09 WORK Review of Systems Review of Systems All systems reviewed & are unremarkable except as noted in HPI and below and unobtainable due to mental status Exam Vital Signs (past 8 hours): - 06/07/18 14:00 Temperature 98.2 F Pulse Rate 56 L Respiratory Rate 20 Blood Pressure 117/55 L Pulse Oximetry 96 Oxygen Delivery Method Room Air Narrative Exam Narrative: General: Patient is seen just prior to intubation. He is unresponsive, but withdraws with painful stimuli HEENT: Pupils are mid dilated, responsive to light bilaterally Respiratory: Diminished breath sounds in lower [place] bilaterally. Uncertain of wheezing or crackles due to patient's large body habitus CV: Regular rate rhythm, no murmurs or gallops noted GI: Prior abdominal surgical scarring, healed. Positive bowel sounds in all 4 quadrants. No organomegaly. Obese abdomen. Musculoskeletal: Moves all extremities to painful stimuli Neuro: Patient withdraws to painful stimuli Psych: Patient is unresponsive. Unable to evaluate Skin: No bruising or rashes noted Objective Labs Result Diagrams: 06/07/18 15:00 06/07/18 15:00 Labs: Laboratory Results - last 24 hr 06/07/18 06/07/18 06/07/18 14:25 15:00 15:00 WBC 10.0 RBC 4.50 Hgb 12.9 L Hct 41.5 MCV 92.1 MCH 28.7 MCHC 31.1 RDW 16.7 H Plt Count 171 Neut % (Auto) 76.5 H Lymph % (Auto) 12.[address] [place] % (Auto) 8.5 Eos % (Auto) 1.6 L Baso % (Auto) 0.6 Neut # (Auto) 7700 H ABG pH 7.17 L* ABG pCO2 114.4 H* ABG pO2 107 H ABG HCO3 42 H ABG Total CO2 45 H ABG O2 Saturation 96 ABG Base Excess 13.0 H FiO2 100 Sodium 143 Potassium 4.8 Chloride 95 L Carbon Dioxide 38 H BUN 40 H Creatinine 1.30 H Estimated GFR 54.1 L BUN/Creatinine Ratio 30.8 H Glucose 164 H Lactate Calcium 8.5 Total Bilirubin 0.7 AST 13 L ALT 24 Alkaline Phosphatase 44 Troponin I 0.065 H B-Natriuretic Peptide 289.0 H Total Protein 6.4 Albumin 3.6 Globulin 2.8 Albumin/Globulin Ratio 1.3 Lipase < 10 L Procalcitonin Ethyl Alcohol < 10 06/07/18 06/07/18 15:00 15:00 WBC RBC Hgb Hct MCV MCH MCHC RDW Plt Count Neut % (Auto) Lymph % (Auto) [place] % (Auto) Eos % (Auto) Baso % (Auto) Neut # (Auto) ABG pH ABG pCO2 ABG pO2 ABG HCO3 ABG Total CO2 ABG O2 Saturation ABG Base Excess FiO2 Sodium Potassium Chloride Carbon Dioxide BUN Creatinine Estimated GFR BUN/Creatinine Ratio Glucose Lactate 0.8 Calcium Total Bilirubin AST ALT Alkaline Phosphatase Troponin I B-Natriuretic Peptide Total Protein Albumin Globulin Albumin/Globulin Ratio Lipase Procalcitonin < 0.05 Ethyl Alcohol Assessment & Plan Plan: Assessment/Plan Narrative: 1. Acute on chronic hypercapnic hypoxic respiratory failure -likely due to COPD exacerbation versus fluid overload versus infection versus progressive hypercapnia from trilogy noncompliance -ABGs on admission 7.1/114/107 -Afebrile, no leukocytosis, no lactic acidosis, procalcitonin is negative -chest x-ray showed Left basilar consolidation is suspicious for pneumonia versus atelectasis. Cardiomegaly with probable developing pulmonary edema. -patient became unresponsive in ED, and required intubation -continue mechanical ventilation, pulmonary toileting -continue propofol and fentanyl for sedation analgesia - sedation and VLTs -given questionable pneumonia, will initiate levofloxacin IV 750 daily -will get CT chest for better assessment of chest x-ray findings 2. Acute encephalopathy -likely due to acute respiratory failure -will re-evaluate post extubation 3. Acute on chronic CHF exacerbation -chest x-ray revealed developing pulmonary edema -BNP was 289, and as per , patient has not taken diuretics for some time -will start diuresis with Lasix 40 IV b.i.d. -monitor I/O, daily weights, fluid restriction to 1500 cc per day -will get echo, unsure of the prior findings 4. Hypertension -blood pressure currently stable -will hold all antihypertensive medications in light of aggressive diuresis and sedation drips -monitor blood pressure 5. CAD status post stenting -will place NG tube and resume aspirin, atorvastatin 6. Hypothyroidism -will resume levothyroxine via NG tube 7. GERD -will start pantoprazole 40 mg daily via NG tube 8. COPD -continue duo nebs q.6 hours as needed Most of the discussion was done with patient's , who stated the patient is a full code 60 min critical time spent evaluating and providing care for patient
[2018-06-07] MEDS: LACTATED RINGERS 1,000 ML 1000 ML IV (16:03)
[2018-06-07] MEDS: SUCCINYLCHOLINE 200 MG/10 ML VIAL 120 MG IV (16:04)
[2018-06-07] MEDS: ETOMIDATE 2 MG/ML VIAL 20 MG IV (16:04)
[2018-06-07] MEDS: levoFLOXacin 750 MG/150 ML PIGGYBACK 100 MG IV (16:05)
[2018-06-07] MEDS: PROPOFOL 1,000 MG/100 ML VIAL 3.538 MG IV (16:09)
--- NOTE | 2018-06-07 16:09 | DI.CT.S_ITS ---
PROCEDURE: CT CHEST WO CON INDICATIONS: shortness of breath, tachycardia TECHNIQUE: Noncontrast 5 mm thick sections acquired from the pulmonary apices to the posterior costophrenic angles. 7 mm thick coronal and sagittal MIP reformats were then acquired. For radiation dose reduction, the following was used: automated exposure control, adjustment of mA and/or kV according to patient size. COMPARISON: None. FINDINGS: Image quality: Study is slightly degraded secondary to respiratory motion and beam hardening artifact from spinal fusion hardware.. Lungs and pleura: There are small bilateral pleural effusion with small to moderate size air space consolidations in the posterior aspect of bilateral lower lobes. Hazy groundglass opacities scattered throughout bilateral lung mclaughlin are also seen suggestive of pulmonary edema. Dependent atelectasis in posterior lateral periphery upper lateral lung field are seen. No pneumothorax. 9 x 4 mm calcified granuloma is noted in the anterior medial aspect of right middle lobe. 3 mm nodular density in lateral periphery of right upper lobe is seen series 3 image 31. Central and peripheral airways are patent and normal in caliber. Mediastinum: Heart size is enlarged. No pericardial effusion. No mediastinal adenopathy by size criteria. Thoracic aorta and central pulmonary arteries are normal in size. Atherosclerotic calcifications are noted in the coronary arteries and thoracic aorta. Esophagus is normal in caliber. No hiatal hernia. Bones and chest wall: No suspicious bony lesions. No vertebral body compression fractures. Extensive fusion of thoracic spine and visualized portion of upper lumbar spine is seen. No gross acute compression fracture or traumatic spondylolisthesis is seen. Mild chronic appearing anterior wedge compression deformity involving lower thoracic spine is seen. No axillary or supraclavicular adenopathy by size criteria. Thyroid gland is unremarkable to the extent visualized.. Abdomen: Visualized upper abdominal solid organs and bowel loops appear normal in the absence of contrast. IMPRESSION: 1. Small bilateral pleural effusion with bilateral lower lobe small to moderate sized infiltrate/atelectasis. Pulmonary edema. Mild dependent atelectasis in posterior aspect of the lateral lung mclaughlin. No pneumothorax. Airway is patent. 2. Tiny 3 mm nodular density in lateral aspect of right upper lobe. Consider followup CT study in 12 months for evaluation of stability. 3. Currently. No mediastinal or hilar adenopathy. 4. Extensive posterior fusion of thoracic and visualized upper lumbar spine. Dictated by: Costa Grimm M.D. on 06/07/2018 at 18:48 Approved by: Costa Grimm M.D. on 06/07/2018 at 18:59
[2018-06-07] MEDS: FUROSEMIDE 100 MG/10 ML VIAL 60 MG IV (17:23)
--- NOTE | 2018-06-07 17:47 | PC.NURSE ---
pt turned/repositioned/cleaned area of nonblanching redness to upper lt buttock
[2018-06-07 18:13] LABS: Troponin I 0.078 ng/mL (0.01-0.034)
--- NOTE | 2018-06-07 20:26 | DI.RAD.S_ITS ---
PROCEDURE: XR CHEST 1V INDICATIONS: ng tube placement TECHNIQUE: One view of the chest was acquired. COMPARISON: [facility], CR, XR CHEST 1V, 06/07/2018, 15:46. FINDINGS: Surgical changes and devices: Extensive fusion hardware throughout the thoracic spine and lumbar spine is seen. ET tube tip is above the gareth. Enteric tube tip is seen below the level of left hemidiaphragm and is in the expected location of stomach lumen. Lungs and pleura: No pleural effusions or pneumothorax. Small bilateral pleural effusion is seen. Mild pulmonary edema is also noted with bibasilar atelectasis. Mediastinum: Mediastinal contours appear normal. Heart size is normal. Bones and chest wall: No suspicious bony lesions. Overlying soft tissues appear unremarkable. IMPRESSION: NG tube tip is in the expected location of stomach lumen below the left hemidiaphragm. Congestive changes and small bilateral pleural effusion with bibasilar small infiltrates/atelectasis. Dictated by: Costa Grimm M.D. on 06/07/2018 at 21:07 Approved by: Costa Grimm M.D. on 06/07/2018 at 21:09
[2018-06-07] MEDS: HEPARIN 5,000 UNIT/ML VIAL 5000 UNIT SUBCUT (21:11)
[2018-06-07 21:24] LABS: HCO3 ABG 42 mmol/L (23-27); PCO2 ABG 62.2 mmHg (35-45); PO2 ABG 86 mmHg (80-105); TCO2 ABG 44 mmol/L (23-27); pH ABG 7.44 (7.35-7.45)
[2018-06-07 21:25] LABS: Fractionated Inspired Oxygen 60; Oxygen Saturation ABG 96 % (95-100)
[2018-06-07] MEDS: PROPOFOL 1,000 MG/100 ML VIAL 21.228 MG IV (22:29)
[2018-06-08] VITALS (29 sets, daily range): BP systolic 86–132; BP diastolic 40–70; PULSE 41–108; RESP 16–22; TEMP 35.8–38.2; O2SAT 92–100; BMI 42.8
[2018-06-08] MEDS: FUROSEMIDE 40 MG/4 ML VIAL IV (00:29)
[2018-06-08] MEDS: PROPOFOL 1,000 MG/100 ML VIAL 28.304 MG IV ×3 (01:48→11:22)
[2018-06-08] MEDS: DEXTROSE 5% WATER 500 ML 21 ML IV ×2 (04:48→18:06)
[2018-06-08] MEDS: PROPOFOL 1,000 MG/100 ML VIAL 24.766 MG IV (04:49)
[2018-06-08 05:22] LABS: Add Manual Diff / Slide Review NO; Basophils Percent Auto 0.4 % (0-2); Eosinophils Percent Auto 4.1 % (2-4); Hematocrit 41.2 % (41-53); Hemoglobin 13.3 g/dL (13.5-17.5); Lymphocytes Percent Auto 17.7 % (25-40); Mean Corpuscular HGB Conc 32.3 % (30-36); Mean Corpuscular Hemoglobin 29.2 PG (26-34); Mean Corpuscular Volume 90.4 fL (80-100); Monocytes Percent Auto 12.2 % (3-14); Neutrophils Absolute Auto 5900 /uL (3000-5900); Neutrophils Percent Auto 65.6 % (50-75); Platelet Count 150 X10^3/uL (150-400); Red Blood Cell Count 4.56 X10^6/uL (4.5-5.9); Red Cell Distribution Width 16.4 % (11.6-14.8)
[2018-06-08 05:27] LABS: Blood Urea Nitrogen 35 mg/dL (9-20); Calcium 8.6 mg/dL (8.4-10.2); Chloride 93 mmol/L (98-107); Estimated Glomerular Filt Rate > 60.0 mL/min (>60); Glucose 98 mg/dL (80-110); HEMOLYSIS < 15 (0-50); Potassium 3.5 mmol/L (3.4-5.1); Sodium 144 mmol/L (137-145)
[2018-06-08 06:00] LABS: Carbon Dioxide 41 mmol/L (22-32)
--- NOTE | 2018-06-08 06:37 | PC.NURSE ---
Patient vented and sedated with propofol gtt 35-45mcg/min throughout night, Flutters eyes open to voice, grimaces and has tremors to all extremeties during turning. SB, BBB, normotensive, riding vent RR at 18, SpO2 93-98% on FIO2 60% TV 350 PEEP 5. IV Lasix BID, diuresed 2075ml overnight. Dr Garcia into see patient this am, informed her of critical serum CO2 41, and K+ 3.5.
--- NOTE | 2018-06-08 06:47 | PM.PN.1 ---
Subjective Time Patient Seen: 06:47 Interval history: FOLLOW UP ON ACUTE ON CHRONIC HYPERCARBIC HYPOXIC RESPIRATORY FAILURE Patient seen at bedside. Doing well since intubation last night. repeat ABG done: 7./ (improved since prior to intubation). He has john diuresed adequately overnight. No overnight events. Patient is able to squeeze my hand as a sign of understanding me. Drowsy but awake. Exam Vital Signs (past 8 hours): - 06/07/18 23:00 06/08/18 00:00 06/08/18 00:20 Temperature 97.4 F L 97.2 F L Pulse Rate 56 L 56 L 54 L Respiratory Rate 18 18 18 Blood Pressure 119/56 L 118/54 L 125/63 Pulse Oximetry 97 98 06/08/18 01:00 06/08/18 02:00 06/08/18 03:00 Temperature Pulse Rate 59 L 57 L 58 L Respiratory Rate 18 18 18 Blood Pressure 132/64 103/56 L 106/56 L Pulse Oximetry 98 97 97 06/08/18 04:00 06/08/18 05:00 06/08/18 05:22 Temperature 98.3 F Pulse Rate 56 L 55 L 63 Respiratory Rate 18 18 18 Blood Pressure 103/47 L 123/70 123/70 Pulse Oximetry 94 94 96 06/08/18 06:00 Temperature Pulse Rate 60 Respiratory Rate 18 Blood Pressure 114/56 L Pulse Oximetry 94 Fraction of Inspired Oxygen 60 Oxygen Delivery Method Mechanical Ventilation Narrative Exam Narrative: General: RASS 0, patient opens eyes on verbal stimulation HEENT: PERRLA BL, EOMI BL ET tube in place on vent of 18/350/60/5 Respiratory: Operation improved in lower lung mclaughlin bilaterally, no wheezing or crackles appreciated CV: Regular rate rhythm, no murmurs or gallops noted GI: Prior abdominal surgical scarring, healed. Positive bowel sounds in all 4 quadrants. No organomegaly. Obese abdomen. Musculoskeletal: Moves all extremities to painful stimuli Neuro: Patient withdraws to painful stimuli. Follows minimal commands. Able to squeeze my fingers. Psych: Patient able to understand and squeeze my fingers in agreement Skin: No bruising or rashes noted. No pitting edema in lower extremities. Objective Labs Result Diagrams: 06/08/18 04:55 06/08/18 04:55 Labs: Laboratory Results - last 24 hr 06/07/18 06/07/18 06/07/18 14:25 15:00 15:00 WBC 10.0 RBC 4.50 Hgb 12.9 L Hct 41.5 MCV 92.1 MCH 28.7 MCHC 31.1 RDW 16.7 H Plt Count 171 Neut % (Auto) 76.5 H Lymph % (Auto) 12.8 L [place] % (Auto) 8.5 Eos % (Auto) 1.6 L Baso % (Auto) 0.6 Neut # (Auto) 7700 H ABG pH 7.17 L* ABG pCO2 114.4 H* ABG pO2 107 H ABG HCO3 42 H ABG Total CO2 45 H ABG O2 Saturation 96 ABG Base Excess 13.0 H FiO2 100 Sodium 143 Potassium 4.8 Chloride 95 L Carbon Dioxide 38 H BUN 40 H Creatinine 1.30 H Estimated GFR 54.1 L BUN/Creatinine Ratio 30.8 H Glucose 164 H Lactate Calcium 8.5 Total Bilirubin 0.7 AST 13 L ALT 24 Alkaline Phosphatase 44 Troponin I 0.065 H B-Natriuretic Peptide 289.0 H Total Protein 6.4 Albumin 3.6 Globulin 2.8 Albumin/Globulin Ratio 1.3 Lipase < 10 L Procalcitonin TSH Nasal Screen MRSA (PCR) Ethyl Alcohol < 10 06/07/18 06/07/18 06/07/18 15:00 15:00 15:00 WBC RBC Hgb Hct MCV MCH MCHC RDW Plt Count Neut % (Auto) Lymph % (Auto) [place] % (Auto) Eos % (Auto) Baso % (Auto) Neut # (Auto) ABG pH ABG pCO2 ABG pO2 ABG HCO3 ABG Total CO2 ABG O2 Saturation ABG Base Excess FiO2 Sodium Potassium Chloride Carbon Dioxide BUN Creatinine Estimated GFR BUN/Creatinine Ratio Glucose Lactate 0.8 Calcium Total Bilirubin AST ALT Alkaline Phosphatase Troponin I B-Natriuretic Peptide Total Protein Albumin Globulin Albumin/Globulin Ratio Lipase Procalcitonin < 0.05 TSH 0.40 L Nasal Screen MRSA (PCR) Ethyl Alcohol 06/07/18 06/07/18 06/07/18 17:35 19:00 21:05 WBC RBC Hgb Hct MCV MCH MCHC RDW Plt Count Neut % (Auto) Lymph % (Auto) [place] % (Auto) Eos % (Auto) Baso % (Auto) Neut # (Auto) ABG pH 7.44 ABG pCO2 62.2 H* ABG pO2 86 ABG HCO3 42 H ABG Total CO2 44 H ABG O2 Saturation 96 ABG Base Excess 18.0 H FiO2 60 Sodium Potassium Chloride Carbon Dioxide BUN Creatinine Estimated GFR BUN/Creatinine Ratio Glucose Lactate Calcium Total Bilirubin AST ALT Alkaline Phosphatase Troponin I 0.078 H B-Natriuretic Peptide Total Protein Albumin Globulin Albumin/Globulin Ratio Lipase Procalcitonin TSH Nasal Screen MRSA (PCR) Negative for mrsa Ethyl Alcohol 06/08/18 06/08/18 04:55 04:55 WBC 9.0 RBC 4.56 Hgb 13.3 L Hct 41.2 MCV 90.4 MCH 29.2 MCHC 32.3 RDW 16.4 H Plt Count 150 Neut % (Auto) 65.6 Lymph % (Auto) 17.7 L [place] % (Auto) 12.2 Eos % (Auto) 4.1 H Baso % (Auto) 0.4 Neut # (Auto) 5900 ABG pH ABG pCO2 ABG pO2 ABG HCO3 ABG Total CO2 ABG O2 Saturation ABG Base Excess FiO2 Sodium 144 Potassium 3.5 D Chloride 93 L Carbon Dioxide 41 H* BUN 35 H Creatinine 1.00 Estimated GFR > 60.0 BUN/Creatinine Ratio 35.0 H Glucose 98 Lactate Calcium 8.6 Total Bilirubin AST ALT Alkaline Phosphatase Troponin I B-Natriuretic Peptide Total Protein Albumin Globulin Albumin/Globulin Ratio Lipase Procalcitonin TSH Nasal Screen MRSA (PCR) Ethyl Alcohol Assessment & Plan Plan: Assessment/Plan Narrative: 1. Acute on chronic hypercapnic hypoxic respiratory failure -likely due to COPD exacerbation versus fluid overload versus infection versus progressive hypercapnia from trilogy noncompliance -ABGs on admission 7.1/114/107. Once intubated, 7./86 -Afebrile, no leukocytosis, no lactic acidosis, procalcitonin is negative -chest x-ray showed Left basilar consolidation is suspicious for pneumonia versus atelectasis. Cardiomegaly with probable developing pulmonary edema. -ct chest showed small bilateral pleural effusion with bilateral lower lobe infiltrates/atelectasis. Pulmonary edema. Small nodular density in the right upper lobe. -continue mechanical ventilation, pulmonary toileting -continue propofol and fentanyl for sedation/analgesia - sedation and VLTs -continue levofloxacin IV 750 daily -pending sputum and blood cultures 2. Acute encephalopathy -likely due to acute respiratory failure -will re-evaluate post extubation 3. Acute on chronic CHF exacerbation -chest x-ray revealed developing pulmonary edema -BNP was 289, and as per , patient has not taken diuretics for some time -CT chest showed small bilateral pleural effusions, and pulmonary edema -HCO3 this morning is 41 -will switch Lasix to Acetazolamide 250mg PO BID x2 days to help with metabolic alkalosis -monitor I/O, daily weights, fluid restriction to 1500 cc per day -echo pending 4. Hypertension -blood pressure currently stable -will hold all antihypertensive medications in light of aggressive diuresis and sedation drips -monitor blood pressure 5. CAD status post stenting -will place NG tube and resume aspirin, atorvastatin 6. Hypothyroidism - TSH low at .40 - Unsure of home medication dose for levothyroxine..will start 50mcg via NG tube and varify home dose with 7. GERD -continue pantoprazole 40 mg daily IV 8. COPD -continue duo nebs q.6 hours as needed 9. Metabolic alkalosis - Possibly from contraction alkalosis vs compensation of severe respiratory acidosis - started on Diamox 25mg via NG BID - Monitor HCO3 levels 10. Troponin Elevation -Possibly due to acute respiratory failure and fluid overload - .065->.078 - EKG pending, continue to trend troponins - ASA/Statin on board Most of the discussion was done with patient's , who stated the patient is a full code 20 min spent evaluating and providing care for patient
[2018-06-08 07:42] LABS: Troponin I 0.065 ng/mL (0.01-0.034)
--- NOTE | 2018-06-08 09:02 | CM.DANOTE ---
DCP: Case received, EMR reviewed and met with patient. Patient intubated, but put name on whiteboard in room. DCP template completed with information currently available. Patient is a 73 year old male who admitted yesterday afternoon to the care of the hospitalist team. PCP: Dr. Jarrell. Payer: confirmed: [employer]. Patient came to hospital via ambulance with decreased level of consiousness. Patient has COPD, lives with . Has been here recently. Has history of non-compliance with trilogy. P: DCP to follow closely. Have left message with to call this telehealth case manager back regarding plan. Stacey Davis RN/Speech Instructor
[2018-06-08] MEDS: POTASSIUM CHLORIDE 20 MEQ/15 ML UDC 40 MEQ PO (11:23)
[2018-06-08] MEDS: HEPARIN 5,000 UNIT/ML VIAL 5000 UNIT SUBCUT ×2 (11:24→20:41)
[2018-06-08] MEDS: acetaZOLAMIDE 250 MG TABLET PO ×2 (11:24→20:41)
[2018-06-08] MEDS: ASPIRIN EC 81 MG TABLET PO (11:24)
[2018-06-08] MEDS: SODIUM CHLORIDE 0.9% FLUSH 10 ML IV ×3 (11:25→19:09)
[2018-06-08] MEDS: PANTOPRAZOLE 40 MG VIAL IV (12:21)
--- NOTE | 2018-06-08 12:44 | CM.DPC ---
DCP Cont: Was able to speak with , Kathy. Stated that her has not had trilogy, for he did not want to use. Stated that he has had home health before, had [facility], for he was here recently for the same symptoms. Stated that he has a walker at home, but does not always use it, and resulted in a recent fall. P: DCP to follow closely for outside resources when he is stable. Stacey Davis RN/City Planner
[2018-06-08] MEDS: MORPHINE 2 MG/ML INJ IV ×6 (13:31→22:34)
[2018-06-08] MEDS: levoFLOXacin 750 MG/150 ML PIGGYBACK 100 MG IV (15:11)
[2018-06-08] MEDS: PROPOFOL 1,000 MG/100 ML VIAL 21.228 MG IV ×2 (18:06→21:12)
[2018-06-08] MEDS: ATORVASTATIN 20 MG TABLET 40 MG PO (20:41)
[2018-06-09] VITALS (26 sets, daily range): BP systolic 93–148; BP diastolic 37–71; PULSE 86–112; RESP 12–35; TEMP 36.8–39.1; O2SAT 92–95
[2018-06-09] MEDS: MORPHINE 2 MG/ML INJ IV ×8 (01:01→21:43)
[2018-06-09] MEDS: PROPOFOL 1,000 MG/100 ML VIAL 24.766 MG IV (02:04)
[2018-06-09 05:20] LABS: Add Manual Diff / Slide Review NO; Basophils Percent Auto 0.5 % (0-2); Eosinophils Percent Auto 1.7 % (2-4); Lymphocytes Percent Auto 9.9 % (25-40); Mean Corpuscular HGB Conc 32.6 % (30-36); Mean Corpuscular Hemoglobin 29.3 PG (26-34); Monocytes Percent Auto 13.4 % (3-14); Neutrophils Absolute Auto 7700 /uL (3000-5900); Neutrophils Percent Auto 74.5 % (50-75); Platelet Count 146 X10^3/uL (150-400); Red Blood Cell Count 4.44 X10^6/uL (4.5-5.9); Red Cell Distribution Width 16.3 % (11.6-14.8); White Blood Cell Count 10.3 X10^3/uL (4.5-11.0)
[2018-06-09 05:25] LABS: BUN Creatinine Ratio 17.3 (6-22); Blood Urea Nitrogen 26 mg/dL (9-20); Calcium 8.5 mg/dL (8.4-10.2); Carbon Dioxide 35 mmol/L (22-32); Chloride 94 mmol/L (98-107); Estimated Glomerular Filt Rate 45.9 mL/min (>60); Glucose 160 mg/dL (80-110); HEMOLYSIS < 15 (0-50); Potassium 3.7 mmol/L (3.4-5.1); Sodium 140 mmol/L (137-145)
--- NOTE | 2018-06-09 05:26 | PC.NURSE ---
NOC Shift: Pt remains vented, sedated on propofol gtt. Pt opens eyes spontaneously, and to voice. Nods head yes, no appropriately to questions. VSS, SR trigeminal PVC's on tele. Stable sats on 40% FIO2. Coarse BS. Febrile throughout shift 100.8 max. Remains ICU care.
[2018-06-09 06:26] LABS: HCO3 ABG 35 mmol/L (23-27); PCO2 ABG 51.4 mmHg (35-45); PO2 ABG 73 mmHg (80-105); TCO2 ABG 37 mmol/L (23-27); pH ABG 7.44 (7.35-7.45)
[2018-06-09 06:27] LABS: Fractionated Inspired Oxygen 40; Oxygen Saturation ABG 95 % (95-100)
[2018-06-09 07:59] LABS: Magnesium 1.6 mg/dL (1.6-2.3)
[2018-06-09] MEDS: PANTOPRAZOLE 40 MG VIAL IV (08:58)
[2018-06-09] MEDS: SODIUM CHLORIDE 0.9% FLUSH 10 ML IV ×2 (08:58→21:42)
[2018-06-09] MEDS: HEPARIN 5,000 UNIT/ML VIAL 5000 UNIT SUBCUT ×2 (08:58→21:42)
[2018-06-09] MEDS: LEVOTHYROXINE 50 MCG TABLET PO (08:59)
[2018-06-09] MEDS: acetaZOLAMIDE 250 MG TABLET PO (08:59)
[2018-06-09] MEDS: ASPIRIN EC 81 MG TABLET PO (09:00)
--- NOTE | 2018-06-09 11:52 | PM.PN.1 ---
Subjective Date Patient Seen: 06/09/18 Interval history: Patient is sedated, intubated, and unresponsive. Unable to obtain further history. Chart reviewed, care discussed with Nursing and RT Exam Vital Signs (past 8 hours): - 06/09/18 04:00 06/09/18 06:00 06/09/18 07:38 Temperature 100.2 F H 100.5 F H 100.7 F H Pulse Rate 90 88 91 H Respiratory Rate 18 18 18 Blood Pressure 107/62 113/64 137/65 Pulse Oximetry 92 94 95 06/09/18 08:23 06/09/18 08:45 06/09/18 10:00 Temperature Pulse Rate 99 H 102 H Respiratory Rate 33 H 19 Blood Pressure 125/66 130/49 L Pulse Oximetry 94 93 92 06/09/18 11:47 Temperature 100.2 F H Pulse Rate 97 H Respiratory Rate 18 Blood Pressure 147/62 H Pulse Oximetry 94 Fraction of Inspired Oxygen 40 Oxygen Delivery Method Mechanical Ventilation Narrative Exam Narrative: Intubated and Sedated/Unresponsive Lungs: Decreased breath sounds bilaterally CV: RRR nl Sl S2 Abd: Soft/ non tender/ non distended Ext: trace edema tian catheter in place NG tube in place Objective Labs Result Diagrams: 06/09/18 05:03 06/09/18 05:03 Labs: Laboratory Results - last 24 hr 06/09/18 06/09/18 06/09/18 05:03 05:03 06:10 WBC 10.3 RBC 4.44 L Hgb 13.0 L Hct 40.0 L MCV 90.0 MCH 29.3 MCHC 32.6 RDW 16.3 H Plt Count 146 L Neut % (Auto) 74.5 Lymph % (Auto) 9.9 L [place] % (Auto) 13.4 Eos % (Auto) 1.7 L Baso % (Auto) 0.5 Neut # (Auto) 7700 H ABG pH 7.44 ABG pCO2 51.4 H ABG pO2 73 L ABG HCO3 35 H ABG Total CO2 37 H ABG O2 Saturation 95 ABG Base Excess 11.0 H FiO2 40 Sodium 140 Potassium 3.7 Chloride 94 L Carbon Dioxide 35 H BUN 26 H Creatinine 1.50 H Estimated GFR 45.9 L BUN/Creatinine Ratio 17.3 Glucose 160 H Calcium 8.5 Magnesium 06/09/18 07:40 WBC RBC Hgb Hct MCV MCH MCHC RDW Plt Count Neut % (Auto) Lymph % (Auto) [place] % (Auto) Eos % (Auto) Baso % (Auto) Neut # (Auto) ABG pH ABG pCO2 ABG pO2 ABG HCO3 ABG Total CO2 ABG O2 Saturation ABG Base Excess FiO2 Sodium Potassium Chloride Carbon Dioxide BUN Creatinine Estimated GFR BUN/Creatinine Ratio Glucose Calcium Magnesium 1.6 Assessment & Plan (1) Acute hypercapnic respiratory failure: Problem details: Patient will have a sedation vacation, and spontaneous breathing trial today. If improved anticipate extubation today Current visit: Yes Status: Acute (2) Acute metabolic encephalopathy: Problem details: Likely secondary to hypercapnea Current visit: Yes Status: Acute (3) Hypertension: Problem details: Continue current treatment Current visit: No Status: Acute (4) COPD (chronic obstructive pulmonary disease): Problem details: On steroids and nebulizers Qualifiers: COPD type: unspecified COPD Chronic bronchitis type: Emphysema type: Qualified Code(s): J44.9 - Chronic obstructive pulmonary disease, unspecified Current visit: Yes Status: Acute (5) Chronic renal failure, stage 3 (moderate): Problem details: Will continue to monitor Current visit: Yes Status: Acute (6) Hypernatremia: Problem details: Likely secondary to diuresis. Lasix has been discontinued Current visit: Yes Status: Acute (7) Metabolic alkalosis: Problem details: Related to diuresis, Lasix has been discontinued Current visit: Yes Status: Acute (8) Pulmonary edema: Problem details: Resolved Current visit: Yes Status: Acute
[2018-06-09] MEDS: levoFLOXacin 750 MG/150 ML PIGGYBACK 100 MG IV (14:46)
[2018-06-09 15:39] LABS: HCO3 ABG 33 mmol/L (23-27); PCO2 ABG 45.1 mmHg (35-45); PO2 ABG 64 mmHg (80-105); pH ABG 7.47 (7.35-7.45)
[2018-06-09 15:40] LABS: Fractionated Inspired Oxygen 40; Oxygen Saturation ABG 93 % (95-100); TCO2 ABG 34 mmol/L (23-27)
--- NOTE | 2018-06-09 16:59 | RT ---
Patient extubated at 1600 to 50% HHFNC. Turned down to 40% at 1700. RR 16, sats 96%.
--- NOTE | 2018-06-09 17:54 | PC.NURSE ---
RT obtained ABG, pH 7.466, CO2 45.1. Order from to extubate. suction at bedside. RT at bedside. Pt responding appropriately to questions, nodding head yes and no and following commands. Extubated at 1600 and placed on high flow NC at 50% FiO2. VSS. NG removed. Pt able to cough, oral suctioning done.
[2018-06-09] MEDS: ACETAMINOPHEN 650 MG SUPP PR (20:43)
[2018-06-10] VITALS (20 sets, daily range): BP systolic 95–140; BP diastolic 41–64; PULSE 87–130; RESP 12–34; TEMP 27.6–38.4; O2SAT 95–98
[2018-06-10 07:48] LABS: BUN Creatinine Ratio 19.2 (6-22); Blood Urea Nitrogen 25 mg/dL (9-20); Calcium 8.4 mg/dL (8.4-10.2); Carbon Dioxide 33 mmol/L (22-32); Chloride 96 mmol/L (98-107); Estimated Glomerular Filt Rate 54.1 mL/min (>60); Glucose 184 mg/dL (80-110); Sodium 139 mmol/L (137-145)
[2018-06-10 07:51] LABS: HEMOLYSIS 53 (0-50)
[2018-06-10 07:52] LABS: Potassium 3.6 mmol/L (3.4-5.1)
[2018-06-10] MEDS: BECLOMETHASONE 40 MCG INH 10.6 GM 2 PUFF INH ×2 (08:30→17:19)
[2018-06-10] MEDS: MORPHINE 2 MG/ML INJ IV ×3 (08:35→20:04)
[2018-06-10] MEDS: PANTOPRAZOLE 40 MG VIAL IV (08:36)
[2018-06-10] MEDS: SODIUM CHLORIDE 0.9% FLUSH 10 ML IV ×2 (08:36→21:26)
[2018-06-10] MEDS: HEPARIN 5,000 UNIT/ML VIAL 5000 UNIT SUBCUT (08:36)
[2018-06-10] MEDS: OXYCODONE IR 5 MG TABLET 10 MG PO ×3 (10:02→18:06)
[2018-06-10] MEDS: acetaZOLAMIDE 250 MG TABLET PO (10:03)
[2018-06-10] MEDS: PROPRANOLOL 10 MG TABLET PO ×3 (10:03→21:33)
[2018-06-10] MEDS: ASPIRIN EC 81 MG TABLET PO (10:04)
[2018-06-10] MEDS: LEVOTHYROXINE 50 MCG TABLET PO (10:04)
--- NOTE | 2018-06-10 11:23 | PT.IIE ---
Current Diagnoses Hyperosmolality and hypernatremia (06/07/18) Alkalosis (06/07/18) Metabolic encephalopathy (06/07/18) Essential (primary) hypertension (06/07/18) Chronic obstructive pulmonary disease, unspecified (06/07/18) Chronic pulmonary edema (06/07/18) Acute respiratory failure with hypercapnia (06/07/18) Acute and chronic respiratory failure with hypoxia (06/07/18) Chronic kidney disease, stage 3 (moderate) (06/07/18) Surgical History (Last Reviewed 06/07/18 @ 20:50 by Bossman Purdy DO) H/O arthroscopic knee surgery (Acute) H/O rotator cuff surgery (Acute) History of back surgery (Acute) H/O abdominal surgery (Chronic) Medical History (Last Reviewed 06/07/18 @ 20:50 by Bossman Purdy DO) COPD (chronic obstructive pulmonary disease) (Acute) Diastolic CHF (Acute) Anemia (Chronic) CAD (coronary artery disease), [place] coronary artery (Chronic) Diabetes mellitus (Chronic) GERD (gastroesophageal reflux disease) (Chronic) HLD (hyperlipidemia) (Chronic) HTN (hypertension) (Chronic) Physical Therapy Inpatient Evaluation/Re-Eval M1 PT/OT-IP Prior Functional Status Start: 06/10/18 10:26 Freq: NEEDED Status: Active Protocol: Document 06/10/18 10:27 [facility] (Rec: 06/10/18 11:22 [facility] [id number]) Medical Review Prior Functional Status Medical History Reviewed Yes Mobility and Gait Per pt amb with FWW at home Activities of Daily Living and IADL's Per pt indep with ADLs Social History Household Members spouse Living Arrangements House Number of Floors (Floors) One Floor Number of Stairs To Enter/Railing? 2 REN with rail Home Environment Standard Height Toilet Tub/Shower Home Equipment Front Wheel Walker Tub Transfer Bench Grab Bars Near Toilet Grab Bars In Shower Additional Social History Comment Social history per pt who was groggy M2 PT-IP Current Condition Start: 06/10/18 10:26 Freq: NEEDED Status: Active Protocol: Document 06/10/18 10:27 [facility] (Rec: 06/10/18 11:22 [facility] [id number]) Physical Therapy Current Condition Current Condition Evaluation Date 06/10/18 Treatment Diagnosis SOB, weakness M3 PT-IP Subjective Start: 06/10/18 10:26 Freq: NEEDED Status: Active Protocol: Document 06/10/18 10:27 [facility] (Rec: 06/10/18 11:22 [facility] [email or web address]) Subjective Physical Therapy Visit Type Type Initial Evaluation Visit Start Time 10:00 Visit Stop Time 10:25 Total Visit Minutes 25 Number of FILM NUMBERER Visits 0 Physical Therapy Visit Comments Patient Comments Pt in pain but agrees to get up Therapy Pain Assessment Pain When Pain Assessed At Rest Pain Present Pain Present Pain Reported M4 PT-IP Mobility and Gait Start: 06/10/18 10:26 Freq: NEEDED Status: Active Protocol: Document 06/10/18 10:27 [facility] (Rec: 06/10/18 11:22 [facility] [email or web address]) PT-Bed Mobility Assessment Rolling Type of Rolling Roll to Right Level of Assist Maximal Assistance 2 Person Assistance M5 PT-IP Objective Assessments Start: 06/10/18 10:26 Freq: NEEDED Status: Active Protocol: Document 06/10/18 10:27 [facility] (Rec: 06/10/18 11:22 [facility] [id number]) Gross Range of Motion Upper Extremity ROM Assessment Bilaterally Impaired Impairments difficulty reaching LUE across body for rolling d/t pain Lower Extremity ROM Assessment Bilaterally Impaired Impairments pain limits range: difficulty bending knees d/t pain Strength Upper Extremity Strength Assessment Bilaterally Impaired Lower Extremity Strength Assessment Bilaterally Impaired M7 PT-IP Assessment and Plan Start: 06/10/18 10:26 Freq: NEEDED Status: Active Protocol: Document 06/10/18 10:27 [facility] (Rec: 06/10/18 11:22 [facility] [id number]) PT Summary Assessment and Plan Potential Rehabilitation Potential Good Status of Condition at Evaluation Unstable Summary Impairments Pain Strength Balance Coordination Bed Mobility Transfers Gait Activity Tolerance Assessment Summary At this time, pt's HR was increasing with just minor bed mobility and he was not able to fully roll to R side. He requires max cueing and max A x2 for movements with significant encouragement d/t pt having pain. Goals Bed Mobility Goal Minimal Assistance Transfer Goal Minimal Assistance Gait Goal Minimal Assistance Gait Distance 25 Other Goals up/down stairs Days to Meet Goals 6 Frequency of Treatment Frequency Of Treatment Twice a Day Treatment Plan Physical Therapy Treatment Plan Bed Mobility Training Transfer Training Gait Training Therapeutic Exercise Balance Retraining Discharge Planning Neuromuscular Re-ed Other Recommendations and Next Treatment Work on bed mobility, and try Focus to get EOB. Once EOB determine if pt able to try stand. Recommendations To Nursing Amount of Assist Needed Mechanical Lift Discharge Recommendations PT Discharge Recommendations SNF Rehab
--- NOTE | 2018-06-10 11:55 | PC.NURSE ---
Addendum entered by William Phillips R.N. 06/10/18 13:46: Pt continues with frequent ectopy as noted on AM tele read; however, rhythm appears more irregular than was previously. Obtained EKG per protocol. EKG shows rhythm change. Called to Dr. Rojas and reported findings. States she will review the EKG in the cardioserver. No new orders at this time. Original Note: Pt awake, alert and following commands. Having difficulty with word finding but answering questions with yes no or I don't know with clear speech. Pupils are equal, round, reactive to light and accommodation. He is able to track my voice. Face is symmetrical. He follows commands to machine mover hands and lift legs off bed. He is weak but strength appears equal bilaterally. BG 172. T 101.1, HR 107 ST PVCs, RR 24-28, BP 109/60. Called to and reported assessment findings. Orders received to give PO tylenol and monitor.
[2018-06-10] MEDS: ACETAMINOPHEN 325 MG TABLET 650 MG PO (12:01)
--- NOTE | 2018-06-10 12:43 | PM.PN.1 ---
Subjective Date Patient Seen: 06/10/18 Interval history: Patient was successfully extubated yesterday without incident. He was on highflow oxygen , then bipap last night. He developed a fever today and had altered mental status associated with it. He was answering yes/no. He complained of back pain earlier. Exam Vital Signs (past 8 hours): - 06/10/18 05:33 06/10/18 06:00 06/10/18 07:30 Temperature 97 F L Pulse Rate 89 99 H Respiratory Rate 26 H 18 Blood Pressure 110/52 L 113/55 L 140/57 L Pulse Oximetry 96 98 06/10/18 08:31 06/10/18 10:00 06/10/18 11:00 Temperature Pulse Rate 130 H 119 H 107 H Respiratory Rate 16 29 H 22 Blood Pressure 139/63 119/47 L Pulse Oximetry 98 96 97 06/10/18 11:47 06/10/18 12:01 Temperature 101.1 F H 101.1 F H Pulse Rate 107 H Respiratory Rate 26 H Blood Pressure 109/60 Pulse Oximetry 96 Fraction of Inspired Oxygen 40 Oxygen Delivery Method Heated High Flow Oxygen Flow Rate 10 Narrative Exam Narrative: Obese Male Lungs: decreased breath sounds bilaterally CV:RRR nl Sl S2 Abd: obese/ soft/ non tender/ non distended Ext: 1+ edmea Objective Labs Result Diagrams: 06/09/18 05:03 06/10/18 06:55 Labs: Laboratory Results - last 24 hr 06/09/18 06/10/18 15:29 06:55 ABG pH 7.47 H ABG pCO2 45.1 H ABG pO2 64 L ABG HCO3 33 H ABG Total CO2 34 H ABG O2 Saturation 93 L ABG Base Excess 9.0 H FiO2 40 Sodium 139 Potassium 3.6 Chloride 96 L Carbon Dioxide 33 H BUN 25 H Creatinine 1.30 H Estimated GFR 54.1 L BUN/Creatinine Ratio 19.2 Glucose 184 H Calcium 8.4 Assessment & Plan (1) Pulmonary edema: Problem details: Resolved Current visit: Yes Status: Acute (2) Metabolic alkalosis: Problem details: Related to diuresis, Lasix has been discontinued On diamox Current visit: Yes Status: Acute (3) Hypernatremia: Problem details: Likely secondary to diuresis. Lasix has been discontinued Current visit: Yes Status: Acute (4) Chronic renal failure, stage 3 (moderate): Problem details: Will continue to monitor Current visit: Yes Status: Acute (5) Acute metabolic encephalopathy: Problem details: Likely secondary to hypercapnea/fever Current visit: Yes Status: Acute (6) Acute hypercapnic respiratory failure: Problem details: Extubated doing well on oxygen/bipap Current visit: Yes Status: Acute (7) CHF (congestive heart failure): Problem details: Diuresis as above Current visit: No Status: Acute (8) COPD (chronic obstructive pulmonary disease): Problem details: On steroids and nebulizers Qualifiers: COPD type: unspecified COPD Chronic bronchitis type: Emphysema type: Qualified Code(s): J44.9 - Chronic obstructive pulmonary disease, unspecified Current visit: Yes Status: Acute
--- NOTE | 2018-06-10 13:02 | OT.IP.TRT ---
Current Diagnoses Hyperosmolality and hypernatremia (06/07/18) Alkalosis (06/07/18) Metabolic encephalopathy (06/07/18) Essential (primary) hypertension (06/07/18) Heart failure, unspecified (06/07/18) Chronic obstructive pulmonary disease, unspecified (06/07/18) Chronic pulmonary edema (06/07/18) Acute respiratory failure with hypercapnia (06/07/18) Acute and chronic respiratory failure with hypoxia (06/07/18) Chronic kidney disease, stage 3 (moderate) (06/07/18) Occupational Therapy Treatment Note M3 OT- IP Subjective and Pain Start: 06/10/18 12:55 Freq: Status: Active Protocol: Document 06/10/18 12:55 [facility] (Rec: 06/10/18 13:02 [facility] [id number]) OT- Subjective Occupational Therapy Visit Type Type Administrative Note Notes Pt has temperature of 101.1F and PT saw pt this morning and only able to tolerate rolling to the right with MAX A x 2. Therefore spoke at length with regarding home set-up , not able to provide any lifting assist and pt needs to be MOD I for all mobility needs. prefers pt to go home with home health but open to skilled rehab if needed. Therefore, attempt OT eval tomorrow if pt more medically stable.
[2018-06-10] MEDS: levoFLOXacin 750 MG/150 ML PIGGYBACK 100 MG IV (14:04)
--- NOTE | 2018-06-10 15:15 | PT.IPTN ---
Current Diagnoses Hyperosmolality and hypernatremia (06/07/18) Alkalosis (06/07/18) Metabolic encephalopathy (06/07/18) Essential (primary) hypertension (06/07/18) Heart failure, unspecified (06/07/18) Chronic obstructive pulmonary disease, unspecified (06/07/18) Chronic pulmonary edema (06/07/18) Acute respiratory failure with hypercapnia (06/07/18) Acute and chronic respiratory failure with hypoxia (06/07/18) Chronic kidney disease, stage 3 (moderate) (06/07/18) Physical Therapy Treatment Note M2 PT-IP Current Condition Start: 06/10/18 10:26 Freq: NEEDED Status: Active Protocol: Document 06/10/18 10:27 [facility] (Rec: 06/10/18 11:22 [facility] [email or web address]) Physical Therapy Current Condition Current Condition Evaluation Date 06/10/18 Treatment Diagnosis SOB, weakness M3 PT-IP Subjective Start: 06/10/18 10:26 Freq: NEEDED Status: Active Protocol: Document 06/10/18 15:15 [facility] (Rec: 06/10/18 15:42 [facility] [id number]) Subjective Physical Therapy Visit Type Type Treatment Note Visit Start Time 15:00 Visit Stop Time 15:15 Total Visit Minutes 15 Number of FILLER BLENDER Visits 1 Physical Therapy Visit Comments Patient Comments Pt willing to try to get up. M4 PT-IP Mobility and Gait Start: 06/10/18 10:26 Freq: NEEDED Status: Active Protocol: Document 06/10/18 15:15 [facility] (Rec: 06/10/18 15:42 [facility] [id number]) PT-Bed Mobility Assessment Rolling Type of Rolling Roll to Right Level of Assist Maximal Assistance 2 Person Assistance Scooting Scooting Up and Down in Bed Dependent M5 PT-IP Objective Assessments Start: 06/10/18 10:26 Freq: NEEDED Status: Active Protocol: Document 06/10/18 10:27 [facility] (Rec: 06/10/18 11:22 [facility] [id number]) Gross Range of Motion Upper Extremity ROM Assessment Bilaterally Impaired Impairments difficulty reaching LUE across body for rolling d/t pain Lower Extremity ROM Assessment Bilaterally Impaired Impairments pain limits range: difficulty bending knees d/t pain Strength Upper Extremity Strength Assessment Bilaterally Impaired Lower Extremity Strength Assessment Bilaterally Impaired M7 PT-IP Assessment and Plan Start: 06/10/18 10:26 Freq: NEEDED Status: Active Protocol: Document 06/10/18 15:15 [facility] (Rec: 06/10/18 15:42 [facility] [id number]) PT Summary Assessment and Plan Summary Assessment Summary PT max a and cueing with mobility. He had C/O pain with any movement. He was unable to follow cues for AROM of LE. Unable to come to sitting at EOB, due to pain and level of assist for rolling in bed. Frequency of Treatment Frequency Of Treatment Twice a Day Treatment Plan Other Recommendations and Next Treatment Work on bed mobility, and try Focus to get EOB. Once EOB determine if pt able to try stand. Recommendations To Nursing Amount of Assist Needed Mechanical Lift Discharge Recommendations PT Discharge Recommendations SNF Rehab
--- NOTE | 2018-06-10 15:49 | ST.IPCSEOM ---
Care Team Visit Care Team Role Provider Type Otto Jarrell MD Primary Care Provider Physician Specialty: Internal Medicine Address: [address] [place] [address] Email: Nikhil Osman MD Family Provider Physician Specialty: Internal Medicine Address: [address] [place] [address] Email: Bossman Purdy DO Emergency Provider Physician Specialty: Emergency Medicine Address: [address] [place] [address] Email: Evette Garcia MD Admit Provider Physician Attending Provider Specialty: Internal Medicine Address: [address] [place] [address] Email: Current Diagnoses Hyperosmolality and hypernatremia (06/07/18) Alkalosis (06/07/18) Metabolic encephalopathy (06/07/18) Essential (primary) hypertension (06/07/18) Heart failure, unspecified (06/07/18) Chronic obstructive pulmonary disease, unspecified (06/07/18) Chronic pulmonary edema (06/07/18) Acute respiratory failure with hypercapnia (06/07/18) Acute and chronic respiratory failure with hypoxia (06/07/18) Chronic kidney disease, stage 3 (moderate) (06/07/18) Past Medical History (Last Reviewed 06/07/18 @ 20:50 by Bossman Purdy DO) COPD (chronic obstructive pulmonary disease) (Acute Medical) Diastolic CHF (Acute Medical) Anemia (Chronic Medical) CAD (coronary artery disease), [place] coronary artery (Chronic Medical) Diabetes mellitus (Chronic Medical) GERD (gastroesophageal reflux disease) (Chronic Medical) HLD (hyperlipidemia) (Chronic Medical) HTN (hypertension) (Chronic Medical) Speech-Language Pathology Swallow Evaluation [employer]UCATION [employer]UL[employer] SPECIALIST Clinical Swallow Evaluation Start: 06/10/18 15:08 Freq: Status: Active Protocol: Document 06/10/18 15:09 [facility] (Rec: 06/10/18 15:39 [facility] [id number]) Clinical Swallow Evaluation Session Time Visit Start Time 13:10 Visit Stop Time 13:40 Total Visit Minutes [address] Rojas Reason for Referral Swallow evaluation following extubation Setting Assessment Location Acute Care Visit Type Note Type Initial Evaluation Next Note Type Next Note Type Treatment Note Patient Information Identification Type Name Date of ID Wristband History Patient is a 73-year-old male with a past medical history of CHF, COPD on trilogy but noncompliant with the machine, HTN, CAD status post stenting , hypothyroidism, hyperlipidemia, anemia, diabetes. He presented to the ED on 06/07/18 due to altered mental status. His noted that the patient had become increasingly lethargic and unreponsive over the course of the week, and she noted that he had decreased PO intake with more sleeping. On the day of admission, the patient's stated that he had not been answering her questions or following commands. EMS stated that the patient was round to be hypoxic and placed on BiPAP en route to the hospital. In the ED, he was afebrile. Chest x-ray showed left basilar consolidation, suspecious for PNA v. atelectasis, and cardoimegaly with probable developming pulmonary edema. Patient continued to deteriorate in 02 levels, despite being on BiPAP. He became unresponsive around 3:30 pm, so he was intubated and transferred to ICU. He was extubated at 1600 on 06/09/18. A clinical swallow evaluation was required by Dr Rojas for diet advancement. Subjective Observations Patient was resting in bed with no family present. Stated that he was willing to participate in swallow evaluation with [employer] EDUCATION [employer]RICUL[employer] SPECIALIST. Per nursing, he was able to tolerate sips of water and applesauce. Patient indicated back pain while SPECIAL EDUCATION CURRICULUM SPECIALIST was respositioning him upright. Positioning reduced due to patient's inability to maintain 90 degrees without pain. Observed reduced ROM and use of hands bilaterally. Mild tremors also observed in right hand. Evaluation Liquids Trialed Ice Chips Thin Solids Trialed Puree Dysphagia Mechanical Dysphagia Advanced Administration Type Tea Spoon Straw Dependent Feeding Oral Impairment Mildly Impaired Oral Strategies Upright at 90 degrees Lingual Sweep Controlled Bite/Sip Size Oral Phase Comments Patient is edentulous at baseline and also presented with a moderate-size sore on the inside of his lower lip, left side. He stated that he has had this for some time, but it does affect his ability to chew. He does not have dentures. These detials affect his tolerance of some textures. However, able to tolerate ice chips, puree textures and soft fruit without diffiuclty. Observed reduced bite strength with bread and patient requested to discontinue trials due to fatigue. Pharyngeal Impairment WFL Pharyngeal Strategies Effortful Swallow Small Bites and Sips Alternate Liquids/Solids Pharyngeal Phase Comments Patient able to tolerate ice chips, thin liquids, puree textures, soft fruit and a bite of soft sandwich without overt s/s of aspiration. Findings Dysphagia Type Mild oral dysphagia Rehabilitation Potential Excellent Impressions Patient presents with mild oral dysaphgia, most significantly due to being edentulous and having a large sore on the inside of his lower lip on the left side. However, he was able to tolerate ice chips, thin liquids, puree textures, soft fruit and a bite of soft sandwich without significant diffiuclty. No overt s/s of aspiration observed throughout the evaluation. Patient requested to discontinue to due fatigue. RECOMMEND: Thin liquids, straw okay, dysphagia advanced textures. 1:1 assistance with meals due to reduced ROM and strength of hands, bilaterally . Medication to be administered as tolerated. Position as upright as possible. Alternate liquids/ solids. Monitor 02 sats throughout meals. [employer] EDUCATION [employer]UL[employer] SPECIALIST will follow up. Diet Recommendations Liquids Order Thin Diet Order Dysphagia Advanced Medication Recommendations As Tolerated Additional Dietary Needs Chopped Food 1:1 Assistance Encourage to Self-Feed Reminders to Use Strategies Aspiration Precautions Recommended Precautions Upright at 90 Degrees Alternate Liquids/Solids Frequent Rest Periods Small Bites/Sips Effortful Swallow Double Swallow Lingual Sweep Additional Precautions Check for oral residue Treatment Plan Placement Recommendations after Half-Way Facility Discharge Appropriate for Therapy Yes Therapy Recommendations Ongoing dysphagia intervention Dysphagia Goals Patient will tolerate the safest, least restrictive diet without overt s/sx of aspiration Patient will implement safe swallowing behavior throughout meals (slow rate of intake, alternate liquids/solids, adequate mastication, etc) for diet upgrade Patient will trial more solid textures successfully x10/10 for diet upgrade. [employer]UC[employer]UL[employer] SPECIALIST Oral Motor Exam Start: 06/10/18 15:08 Freq: Status: Active Protocol: Document 06/10/18 15:47 [facility] (Rec: 06/10/18 15:48 [facility] [id number]) Oral Motor Examination Face Facial Symmetry Symmetrical Facial Movement Controlled Mouth Teeth Comment Edentulous, no dentures at baseline Pucker Lips Normal Smile Normal Tongue Size Normal Comments Observed moderate sized sore on left side of lower lip, inside mouth. Patient reported that this is impacting his ability to chew solid food. Tongue Movement Protrusion/Retraction Strength WFL Protrusion/Retraction Range of Movement Normal Protrusion/Retraction Coordination WFL Elevation/Depression Strength WFL Elevation/Depression Coordination WFL Lateralization Strength WFL Lateralization Coordination WFL Palate Soft Palate Description Normal Normal Arch Hard Palate Description Normal Normal Arch Gag Reflex Response Normal Velopharyngeal Movement Normal Hyolaryngeal Movement Hyolaryngeal Movement Normal Elevation Normal Excursion Volitional Cough/Swallow Comments Productive cough and throat clear
--- NOTE | 2018-06-10 19:52 | PC.NURSE ---
Urine output since 1445 <100mls, dark yellow. Chen patent and draining. BP 125/64, HR 109. Dr. Rojas made aware.
[2018-06-10] MEDS: POTASSIUM CHLORIDE 20 MEQ/15 ML UDC 40 MEQ PO (21:14)
[2018-06-10] MEDS: MAGNESIUM SULFATE 2 GM/50 ML PIGGYBACK IV (21:14)
[2018-06-10] MEDS: ATORVASTATIN 20 MG TABLET 40 MG PO (21:15)
[2018-06-10] MEDS: DOCUSATE 100 MG CAPSULE PO (21:16)
[2018-06-10] MEDS: SODIUM CHLORIDE 0.9% 1,000 ML 50 ML IV (22:42)
[2018-06-11] VITALS (21 sets, daily range): BP systolic 77–123; BP diastolic 33–96; PULSE 90–136; RESP 12–119; TEMP 30.5–36.8; O2SAT 93–100
[2018-06-11] MEDS: MORPHINE 2 MG/ML INJ IV ×2 (00:12→07:23)
--- NOTE | 2018-06-11 00:37 | PC.NURSE ---
Waving right hand which is tremulous, repeating litany of Help Me, Help Me nonstop. When asked what he wants help with he statesI can't do this anymore indicating Bipap mask. Med with 2mg IV morphone without any effect.
[2018-06-11] MEDS: LORazepam 2 MG/ML SYRINGE 1 MG IV (01:03)
--- NOTE | 2018-06-11 05:08 | PC.NURSE ---
After calling hospitalist and getting one time dose of Ativan IV, pt was more comfortable and slept/rested more esasily without constant calling out for help. Still periodically called for help, and asked for Bipap to be removed, but was much less miserable. When lab beryl blood and he was turned and weighed, attempted to give Levothyroxine dose but none in drawer.
[2018-06-11 05:12] LABS: Blood Urea Nitrogen 36 mg/dL (9-20); Calcium 8.3 mg/dL (8.4-10.2); Carbon Dioxide 35 mmol/L (22-32); Chloride 97 mmol/L (98-107); Estimated Glomerular Filt Rate 37.2 mL/min (>60); Glucose 156 mg/dL (80-110); HEMOLYSIS < 15 (0-50); Magnesium 2.5 mg/dL (1.6-2.3); Potassium 3.6 mmol/L (3.4-5.1); Sodium 139 mmol/L (137-145)
[2018-06-11] MEDS: BECLOMETHASONE 40 MCG INH 10.6 GM 2 PUFF INH (06:08)
[2018-06-11] MEDS: SODIUM CHLORIDE 0.9% FLUSH 10 ML IV ×2 (07:23→21:01)
[2018-06-11] MEDS: ACETAMINOPHEN 325 MG TABLET 650 MG PO (07:25)
[2018-06-11] MEDS: DOCUSATE 100 MG CAPSULE PO ×2 (07:25→21:00)
[2018-06-11] MEDS: POLYETHYLENE GLYCOL 3350 17 GM POWD.PACK PO (07:26)
[2018-06-11] MEDS: HEPARIN 5,000 UNIT/ML VIAL 5000 UNIT SUBCUT ×2 (07:30→21:00)
[2018-06-11] MEDS: PROPRANOLOL 10 MG TABLET PO ×3 (07:30→21:00)
[2018-06-11] MEDS: ASPIRIN EC 81 MG TABLET PO (07:30)
[2018-06-11] MEDS: LEVOTHYROXINE 50 MCG TABLET PO (07:30)
[2018-06-11] MEDS: PANTOPRAZOLE 40 MG VIAL IV (07:31)
[2018-06-11 07:56] LABS: Acinetobacter baumannii Not Detected (Not Detect); Candida albicans Not Detected (Not Detect); Candida glabrata Not Detected (Not Detect); Candida krusei Not Detected (Not Detect); Candida parapsilosis Not Detected (Not Detect); Candida tropicalis Not Detected (Not Detect); E. coli Not Detected (Not Detect); Enterobacter cloacae complex Not Detected (Not Detect); Enterobacteriaceae species Not Detected (Not Detect); Enterococcus species Not Detected (Not Detect); Haemophilus influenzae Not Detected (Not Detect); Listeria monocytogenes Not Detected (Not Detect); Neisseria meningitidis Not Detected (Not Detect); Proteus species Not Detected (Not Detect); Pseudomonas aeruginosa Not Detected (Not Detect); Serratia marcescens Not Detected (Not Detect); Staphylococcus species Not Detected (Not Detect); Streptococcus agalactiae (Gr B Not Detected (Not Detect); Streptococcus pneumonia Not Detected (Not Detect); Streptococcus pyogenes (Gr A) Not Detected (Not Detect); Streptococcus species Not Detected (Not Detect)
--- NOTE | 2018-06-11 09:40 | PT.IPTN ---
Current Diagnoses Hyperosmolality and hypernatremia (06/07/18) Alkalosis (06/07/18) Metabolic encephalopathy (06/07/18) Essential (primary) hypertension (06/07/18) Heart failure, unspecified (06/07/18) Chronic obstructive pulmonary disease, unspecified (06/07/18) Chronic pulmonary edema (06/07/18) Acute respiratory failure with hypercapnia (06/07/18) Acute and chronic respiratory failure with hypoxia (06/07/18) Chronic kidney disease, stage 3 (moderate) (06/07/18) Physical Therapy Treatment Note M2 PT-IP Current Condition Start: 06/10/18 10:26 Freq: NEEDED Status: Active Protocol: Document 06/10/18 10:27 LR (Rec: 06/10/18 11:22 [facility] [id number]) Physical Therapy Current Condition Current Condition Evaluation Date 06/10/18 Treatment Diagnosis SOB, weakness M3 PT-IP Subjective Start: 06/10/18 10:26 Freq: NEEDED Status: Active Protocol: Document 06/11/18 09:12 LJ (Rec: 06/11/18 09:40 LJ [id number]) Subjective Physical Therapy Visit Type Type Treatment Note Visit Start Time 09:12 Visit Stop Time 09:36 Total Visit Minutes 24 Physical Therapy Visit Comments Patient Comments Pt willing to try to sit at EOB M4 PT-IP Mobility and Gait Start: 06/10/18 10:26 Freq: NEEDED Status: Active Protocol: Document 06/11/18 09:12 LJ (Rec: 06/11/18 09:40 LJ [id number]) PT-Bed Mobility Assessment Rolling Type of Rolling Roll to Right Level of Assist Maximal Assistance 1 Person Assistance M5 PT-IP Objective Assessments Start: 06/10/18 10:26 Freq: NEEDED Status: Active Protocol: Document 06/10/18 10:27 LR (Rec: 06/10/18 11:22 [facility] [id number]) Gross Range of Motion Upper Extremity ROM Assessment Bilaterally Impaired Impairments difficulty reaching LUE across body for rolling d/t pain Lower Extremity ROM Assessment Bilaterally Impaired Impairments pain limits range: difficulty bending knees d/t pain Strength Upper Extremity Strength Assessment Bilaterally Impaired Lower Extremity Strength Assessment Bilaterally Impaired M6 PT-IP Treatment Start: 06/10/18 10:26 Freq: NEEDED Status: Active Protocol: Document 06/11/18 09:12 (Rec: 06/11/18 09:40 [id number]) Physical Therapy Treatment Exercises Exercises Ankle Pumps Gluteal Sets Quad Sets Heel Slides Straight Leg Raises Supine Hip Abduction Shoulder Flexion Elbow Flexion/Extension Other Treatments Other Treatment Performed AAROM all major joints. All exercises performed with mad- max assist M7 PT-IP Assessment and Plan Start: 06/10/18 10:26 Freq: NEEDED Status: Active Protocol: Document 06/11/18 09:12 (Rec: 06/11/18 09:40 [id number]) PT Summary Assessment and Plan Summary Assessment Summary Pt participated very little with AAROM d/t strength and reported pain. Able to minimally roll to right to reposition using LLE and RUE with max assist from therapist . Not able to reposition more than a slight log roll a this time. Treatment Plan Other Recommendations and Next Treatment Work on bed mobility, and try Focus to get EOB. Once EOB determine if pt able to try stand. Recommendations To Nursing Amount of Assist Needed Mechanical Lift Discharge Recommendations PT Discharge Recommendations SNF Rehab
[2018-06-11] MEDS: OXYCODONE IR 5 MG TABLET 10 MG PO ×2 (10:11→16:30)
--- NOTE | 2018-06-11 10:36 | PC.NURSE ---
Addendum entered by William Phillips R.N. 06/11/18 13:45: Called to MD. Reported orthostatic hypotension during transfer from bed to chair. HR remains 120-130s Afib frequent PVCs at rest. Last BP 105/61 (83). Approx 150 ML of urine to tian since 0600. Orders received for IVF bolus and IV digoxin. Pt denies chest pain, pressure, shortness of breath, dizziness or lightheadedness. Reclined in chair at this time. Original Note: Dr. Blanco on rounds at bedside 1000. Reported HR/rhythm, BPs, UOP. Reviewed lab results, micro results including gram positive cocci blood cx, and IVF rate. Reviewed current abx levaquin q 24hr. Reported current O2 needs as well as pt only able to tolerate bipap intermittently overnight. Requested clarification for diamox r/t low UOP, IV hydration, and dose held last night. Discussed poor pain tolerance despite current med regimen. MD states he will review chart/labs and make orders.
--- NOTE | 2018-06-11 10:55 | ST.IPDYTX ---
Care Team Visit Care Team Role Provider Type Otto Jarrell MD Primary Care Provider Physician Specialty: Internal Medicine Address: [address] [place] [address] Email: Nikhil Osman MD Family Provider Physician Specialty: Internal Medicine Address: [address] [place] [address] Email: Bossman Purdy DO Emergency Provider Physician Specialty: Emergency Medicine Address: [address] [place] [address] Email: Evette Garcia MD Admit Provider Physician Attending Provider Specialty: Internal Medicine Address: [address] [place] [address] Email: KENO WRITER/RUNNER Dysphagia Treatment KENO WRITER/RUNNER Dysphagia Treatment Start: 06/10/18 15:08 Freq: Status: Active Protocol: Document 06/11/18 10:47 [facility] (Rec: 06/11/18 10:55 [facility] [id number]) Dysphagia Treatment Session Time Visit Start Time 10:20 Visit Stop Time 10:40 Total Visit Minutes 20 Setting Assessment Location Acute Care Next Note Type Next Note Type Treatment Note Patient Information Identification Type Name ID Wristband Other Subjective Observations Patient was awake and more alert today, resting in bed with no family present. Able to answer yes/no questions. Nursing reported that he did well with breakfast - eating half of his portion of eggs and tolerating thin liquids without difficulty. Patient continued to complain of back and buttock pain. Nursing aware. Treatment Liquids Trialed Thin Solids Trialed Dysphagia Advanced Mechanical Soft Administration Type Straw Self-Feeding Dependent Feeding Oral Strategies Upright at 90 degrees Controlled Bite/Sip Size Alternate Liquids/Solids Other Pharyngeal Strategies Sitting Upright (90 deg) Effortful Swallow Small Bites and Sips Alternate Liquids/Solids Treatment Activities Patient able to self-feed with [id number] assistance. Was able to tolerate 90 degrees in positioning with mild pain. Toleated single sips of thin liquid via straw with no s/sx of aspiration. With 4 consecutive sips of thin liquid, began to cough. KENO WRITER/RUNNER cued patient to continue with upright positioning for intake and take single sips of thin liquid to avoid further coughing. Patient verbalized understanding. Tolerated multiple bites of diced fruit and soft sandwich without difficulty. Mild oral residue observed after 3 bites of egg salad sandwich. Resolved with liquid wash. Assessment Assessment of Improvement Improved tolerance of PO intake overall. Also notable increase in strength and endurance. Continue to implement [id number] assistance with meals to improve patient's ability to self-feed. Encourage patient to implement dysphagia strategies (slow rate of intake, small bites/sips, upright positioning, alternate liquids/solids,etc). Patient able to tolerate mechanical soft textures this session without difficulty. RECOMMEND: Continue thin liquids, upgrade texture diet to mechanial soft. Continue with assistance at meals, upright positioning, alternate liquids/solids, slow rate of intake, single sips, meds as tolerated. KENO WRITER/RUNNER will follow up. Diet Recommendations Recommendations Upgrade Diet Order Liquids Order Thin Diet Order Mechanical Soft Medication Recommendations As Tolerated Additional Dietary Needs 1:1 Assistance Encourage to Self-Feed Reminders to Use Strategies Aspiration Precautions Recommended Precautions Upright at 90 Degrees Alternate Liquids/Solids Frequent Rest Periods Small Bites/Sips Effortful Swallow Lingual Sweep Check for Pocketing Additional Precautions Liquid wash after dry textures Treatment Plan Placement Recommendation after Discharge Alf Facility Appropriate for Continued Therapy Yes Therapy Recommendations Ongoing dysphagia intervention Dysphagia Goals Patient will tolerate the safest, least restrictive diet without overt s/sx of aspiration Patient will implement safe swallowing behavior throughout meals (slow rate of intake, alternate liquids/solids, adequate mastication, etc) for diet upgrade Patient will trial more solid textures successfully x10/10 for diet upgrade. Follow Up Plan Daily intervention
[2018-06-11] MEDS: SODIUM CHLORIDE 0.9% 1,000 ML 50 ML IV (11:21)
[2018-06-11] MEDS: DIGOXIN 500 MCG/2 ML AMPUL 250 MCG IV ×2 (14:11→20:05)
[2018-06-11] MEDS: SODIUM CHLORIDE 0.9% 250 ML 1000 ML IV (14:12)
--- NOTE | 2018-06-11 15:15 | PT.IPTN ---
Current Diagnoses Sepsis, unspecified organism (06/07/18) Hypermagnesemia (06/07/18) Hyperosmolality and hypernatremia (06/07/18) Alkalosis (06/07/18) Metabolic encephalopathy (06/07/18) Essential (primary) hypertension (06/07/18) Heart failure, unspecified (06/07/18) Chronic obstructive pulmonary disease, unspecified (06/07/18) Chronic pulmonary edema (06/07/18) Acute respiratory failure with hypercapnia (06/07/18) Acute and chronic respiratory failure with hypoxia (06/07/18) Chronic kidney disease, stage 3 (moderate) (06/07/18) Physical Therapy Treatment Note M2 PT-IP Current Condition Start: 06/10/18 10:26 Freq: NEEDED Status: Active Protocol: Document 06/10/18 10:27 [facility] (Rec: 06/10/18 11:22 [facility] [email or web address]) Physical Therapy Current Condition Current Condition Evaluation Date 06/10/18 Treatment Diagnosis SOB, weakness M3 PT-IP Subjective Start: 06/10/18 10:26 Freq: NEEDED Status: Active Protocol: Document 06/11/18 16:32 [facility] (Rec: 06/11/18 16:39 [facility] [email or web address]) Subjective Physical Therapy Visit Type Type Treatment Note Visit Start Time 14:30 Visit Stop Time 15:15 Total Visit Minutes 45 Number of CHEF INSTRUCTOR Visits 3 Physical Therapy Visit Comments Patient Comments Pt wants to get back to bed. Therapy Pain Assessment Pain When Pain Assessed At Rest Pain Present Pain Present Pain Reported Location Back Scale Used Unable to rate pain M4 PT-IP Mobility and Gait Start: 06/10/18 10:26 Freq: NEEDED Status: Active Protocol: Document 06/11/18 16:32 [facility] (Rec: 06/11/18 16:39 [facility] [id number]) PT-Bed Mobility Assessment Rolling Type of Rolling Roll to Right Level of Assist Maximal Assistance 2 Person Assistance Sit to Supine Sit to Supine Maximum Assistance 2 Person Assistance Scooting Scooting Up and Down in Bed Dependent PT-Transfer Assessment Sit to and From Stand Sit to and from Stand Maximum Assistance Equipment Transfer Assistive Device Mechanical Lift Orthotic/Prosthetic Devices or Brace: No Transfers Transfer Destination Bed Transfer Technique Mechanical Lift Transfer Ability Level of Assist Total Assistance 2 Person Assistance Comments Mobility Comments Sit to stand for transfer from chair to bed. Max A for sitting at edge of chair and bed. M5 PT-IP Objective Assessments Start: 06/10/18 10:26 Freq: NEEDED Status: Active Protocol: Document 06/10/18 10:27 [facility] (Rec: 06/10/18 11:22 [facility] [email or web address]) Gross Range of Motion Upper Extremity ROM Assessment Bilaterally Impaired Impairments difficulty reaching LUE across body for rolling d/t pain Lower Extremity ROM Assessment Bilaterally Impaired Impairments pain limits range: difficulty bending knees d/t pain Strength Upper Extremity Strength Assessment Bilaterally Impaired Lower Extremity Strength Assessment Bilaterally Impaired M6 PT-IP Treatment Start: 06/10/18 10:26 Freq: NEEDED Status: Active Protocol: Document 06/11/18 16:32 [facility] (Rec: 06/11/18 16:39 [facility] [email or web address]) Physical Therapy Treatment Exercises Exercises Ankle Pumps Gluteal Sets Seated Knee Flexion/Extension M7 PT-IP Assessment and Plan Start: 06/10/18 10:26 Freq: NEEDED Status: Active Protocol: Document 06/11/18 16:32 [facility] (Rec: 06/11/18 16:39 [facility] [email or web address]) PT Summary Assessment and Plan Summary Assessment Summary Pt slowly progress slowly. He was able to active move LE. He is a max a for all mobility. He C/O pain with activity. Frequency of Treatment Frequency Of Treatment Twice a Day Recommendations To Nursing Amount of Assist Needed Mechanical Lift Discharge Recommendations PT Discharge Recommendations SNF Rehab
--- NOTE | 2018-06-11 16:00 | P.PN_ITS ---
Subjective Date Patient Seen: 06/11/18 Time Patient Seen: 11:02 Interval history: He is seen in the intensive care unit this morning to follow- up his COPD exacerbation, acute on chronic respiratory failure, Gram-positive cocci septicemia. His responses are quite slow. He is at 98% on 5 L nasal cannula after requiring BiPAP last night. His Kathy visits in the afternoon and has been speaking with respiratory therapy about the problems he had with trilogy that led to him sending it back. The staff who have been with him for several days reports that he is slowly clearing. His telemetry shows short runs of sinus rhythm followed by apparent atrial fibrillation. Throughout there are multiple PVCs making it challenging to be absolutely sure what his rhythm is doing any particular moment. The magnesium is actually high at 2.5. Exam Vital Signs (past 8 hours): - 06/11/18 08:02 06/11/18 08:40 06/11/18 10:00 Temperature Pulse Rate 110 H 115 H Respiratory Rate 22 19 Blood Pressure 89/59 L 97/54 L Pulse Oximetry 97 97 100 06/11/18 12:00 06/11/18 14:11 Temperature 98.2 F Pulse Rate 127 H 118 H Respiratory Rate 19 Blood Pressure 90/59 L Pulse Oximetry 97 Fraction of Inspired Oxygen 40 Oxygen Delivery Method Nasal Cannula Oxygen Flow Rate 5 Narrative Exam Narrative: Alert and oriented x3 but slowed responses. Heart is irregularly tachycardic. Lungs have diminished breath sounds bilaterally without loud wheezing. Extremities have moderate ankle edema. Objective Labs Result Diagrams: 06/09/18 05:03 06/11/18 04:42 Labs: Laboratory Results - last 24 hr 06/09/18 06/11/18 20:29 04:42 Sodium 139 Potassium 3.6 Chloride 97 L Carbon Dioxide 35 H BUN 36 H Creatinine 1.80 H Estimated GFR 37.2 L BUN/Creatinine Ratio 20.0 Glucose 156 H Calcium 8.3 L Magnesium 2.5 H A. baumannii (PCR) Not detected Radha albicans (PCR) Not detected C. glabrata (PCR) Not detected C. krusei (PCR) Not detected C. parapsilosis (PCR) Not detected C. tropicalis (PCR) Not detected Enterobacteriac sp PCR Not detected E. cloacae complex PCR Not detected Enterococcus sp PCR Not detected E. coli (PCR) Not detected H. influenzae (PCR) Not detected Klebsiella oxytoca PCR Not detected Klebsiella pneumoniae Not detected List. monocytogenes PCR Not detected N. meningitidis (PCR) Not detected Proteus species (PCR) Not detected Serratia marcescens PCR Not detected Staphylococcus sp PCR Not detected Staph aureus (PCR) Not detected mecA-Methicil Res Gene Not Reportable Streptococcus sp PCR Not detected Group A Strep (PCR) Not detected Strep agalactiae (PCR) Not detected Strep pneumoniae (PCR) Not detected P. aeruginosa (PCR) Not detected Radha/B-Vanco Res Genes Not Reportable KPC-Carbap Res Gene PCR Not Reportable Assessment & Plan (1) Pulmonary edema: Problem details: Resolved Current visit: Yes Status: Acute (2) Metabolic alkalosis: Problem details: Related to diuresis, Lasix has been discontinued On diamox Current visit: Yes Status: Acute (3) Hypernatremia: Problem details: Likely secondary to diuresis. Lasix has been discontinued Current visit: Yes Status: Acute (4) Chronic renal failure, stage 3 (moderate): Problem details: Will continue to monitor Current visit: Yes Status: Acute (5) Acute metabolic encephalopathy: Problem details: NOW SLOWLY RESOLVING. Likely secondary to hypercapnea/fever Current visit: Yes Status: Acute (6) Acute hypercapnic respiratory failure: Problem details: Extubated doing well on oxygen/bipap Current visit: Yes Status: Acute (7) Hypermagnesemia: Problem details: Recheck magnesium level tomorrow. Current visit: Yes Status: Acute (8) Septicemia: Problem details: Add vancomycin, continue Levaquin IV. Current visit: Yes Status: Acute (9) COPD (chronic obstructive pulmonary disease): Problem details: On inhaled steroids and nebulizers. He seems to be doing well enough without adding oral or IV steroids at this time. Qualifiers: COPD type: unspecified COPD Chronic bronchitis type: Emphysema type: Qualified Code(s): J44.9 - Chronic obstructive pulmonary disease, unspecified Current visit: Yes Status: Acute Time Spent With Patient Time with patient: Greater than 35 minutes
--- NOTE | 2018-06-11 16:12 | OT.IP.EVAL ---
Current Diagnoses Sepsis, unspecified organism (06/07/18) Hypermagnesemia (06/07/18) Hyperosmolality and hypernatremia (06/07/18) Alkalosis (06/07/18) Metabolic encephalopathy (06/07/18) Essential (primary) hypertension (06/07/18) Heart failure, unspecified (06/07/18) Chronic obstructive pulmonary disease, unspecified (06/07/18) Chronic pulmonary edema (06/07/18) Acute respiratory failure with hypercapnia (06/07/18) Acute and chronic respiratory failure with hypoxia (06/07/18) Chronic kidney disease, stage 3 (moderate) (06/07/18) Past Medical History (Last Reviewed 06/07/18 @ 20:50 by Bossman Purdy DO) COPD (chronic obstructive pulmonary disease) (Acute) Diastolic CHF (Acute) Anemia (Chronic) CAD (coronary artery disease), [place] coronary artery (Chronic) Diabetes mellitus (Chronic) GERD (gastroesophageal reflux disease) (Chronic) HLD (hyperlipidemia) (Chronic) HTN (hypertension) (Chronic) Surgical History (Last Reviewed 06/07/18 @ 20:50 by Bossman Purdy DO) H/O arthroscopic knee surgery (Acute) H/O rotator cuff surgery (Acute) History of back surgery (Acute) H/O abdominal surgery (Chronic) Occupational Therapy Inpatient Evaluation/Re-Eval M1 PT/OT-IP Prior Functional Status Start: 06/10/18 10:26 Freq: NEEDED Status: Active Protocol: Document 06/10/18 10:27 [facility] (Rec: 06/10/18 11:22 [facility] [id number]) Medical Review Prior Functional Status Medical History Reviewed Yes Mobility and Gait Per pt amb with FWW at home Activities of Daily Living and IADL's Per pt indep with ADLs Social History Household Members spouse Living Arrangements House Number of Floors (Floors) One Floor Number of Stairs To Enter/Railing? 2 REN with rail Home Environment Standard Height Toilet Tub/Shower Home Equipment Front Wheel Walker Tub Transfer Bench Grab Bars Near Toilet Grab Bars In Shower Additional Social History Comment Social history per pt who was groggy M1 PT/OT-IP Prior Functional Status Start: 06/10/18 12:55 Freq: NEEDED Status: Active Protocol: Document 06/11/18 15:56 [facility] (Rec: 06/11/18 16:12 [facility] [id number]) Medical Review Prior Functional Status Medical History Reviewed Yes Mobility and Gait Per pt amb with FWW at home Activities of Daily Living and IADL's Per pt indep with ADLs Prior Functional Level (Other details) Pt did all the shopping, bills , and medications. Social History Household Members spouse Living Arrangements House Number of Floors (Floors) One Floor Number of Stairs To Enter/Railing? 2 REN with rail Home Environment Standard Height Toilet Tub/Shower Home Equipment Front Wheel Walker Tub Transfer Bench Grab Bars Near Toilet Grab Bars In Shower Additional Social History Comment Social history per pt who was groggy M2 OT-IP Current Condition Start: 06/10/18 12:55 Freq: Status: Active Protocol: Document 06/11/18 15:56 [facility] (Rec: 06/11/18 16:12 [facility] [id number]) Occupational Therapy Current Condition Current Condition Evaluation Date 06/11/18 Treatment Diagnosis Altered mental status, acute respiratory failure Diagnosis Onset Date 06/07/18 M3 OT- IP Subjective and Pain Start: 06/10/18 12:55 Freq: Status: Active Protocol: Document 06/11/18 15:56 [facility] (Rec: 06/11/18 16:12 [facility] [id number]) OT- Subjective Occupational Therapy Visit Type Type Initial Evaluation Visit Start Time 14:30 Visit Stop Time 15:15 Total Visit Minutes 45 Occupational Therapy Visit Comments Patient Comments Pt wanting to get back to the bed. OT Pain Assessment Pain When Pain Assessed At Rest Pain Present Pain Present Pain Reported M4 OT- IP ADL's Start: 06/10/18 12:55 Freq: Status: Active Protocol: Document 06/11/18 15:56 [facility] (Rec: 06/11/18 16:12 [facility] [id number]) OT ADL-Grooming General Evaluation Grooming Ability Maximum Assistance Comments OT Grooming Comments Support at right elbow support able to wash face, active assist so able to reach his ears. OT ADL-Dressing General Eval Upper Body Dressing Ability Total Assistance Lower Body Dressing Ability Total Assistance Areas Needing Assistance Socks Comments OT Dressing Comments Dependent for all dressing needs, able to assist minimally to raise right arm up to peter gown. OT ADL-Toileting Comments OT Toileting Comments Catheter. OT ADL-Bathing Bathing Type Bathing Type Sponge Bath General Evaluation Bathing Ability Maximal Assistance Areas Needing Assistance Retrieving/Setting Up Items Wash/Dry Upper Body Wash/Dry Back Wash/Dry Perineal Area Wash/Dry Lower Extremities Comments OT Bathing Comments Pt able to assist with washing his face. M6 OT- IP Functional Cognition Start: 06/10/18 12:55 Freq: Status: Active Protocol: Document 06/11/18 15:56 [facility] (Rec: 06/11/18 16:12 [facility] [id number]) Cognitive Factors Limiting Selfcare Function Cognitive Ability Level of Alertness Alert Confusional State Patient Orientation Name Attention Span Ability Capable of Focused Attention Unable to Sustain Attention Ability to Follow Commands Able to Follow One Step Commands with Increased Time Able to Follow One Step Commands with Repetition Memory Description Short Term Impaired Movement Education Specialist Impaired Working Impaired Cognitive Comments Cognitive Assessment Comments Pt perservating on pain and only able to follow simple concrete commands. OT- Vision and Hearing OT- Vision Assessment Vision Assessment Comments Pt mostly had eyes closed but states able to see his across the room when asked. M7 OT- IP Mobility and Balance Start: 06/10/18 12:55 Freq: Status: Active Protocol: Document 06/11/18 15:56 [facility] (Rec: 06/11/18 16:12 [facility] [id number]) OT- Bed Mobility Assessment Rolling Type of Rolling Roll to Right Level of Assistance Maximum Assistance 2 Person Assistance Sit to Supine Sit to Supine Assist Maximum Assistance 2 Person Assistance OT-Transfer Assessment Sit to and From Stand Sit to and from Stand Total Assistance Transfers Transfer Ability Total Assistance Technique Transfer Technique Mechanical Lift Devices Transfer Assistive Devices Mechanical Lift OT- Balance Assessment Sitting Balance and Reactions Static Sitting Balance Ability Poor Dynamic Sitting Balance Ability Poor Comments Other Balance Tests/Deviations/Treatment MAX X 1 for sitting balance, : two person to help lean forwards in the recliner in preparation for mechanical lift. M8 OT- IP Objective Assessments Start: 06/10/18 12:55 Freq: Status: Active Protocol: Document 06/11/18 15:56 [facility] (Rec: 06/11/18 16:12 [facility] [id number]) OT Gross Range of Motion Upper Extremity Range of Motion Assessment Bilaterally Impaired OT Strength Comments Strength Comments RUE 3-/5, LUE 2/5. Right 3rd digit swollen at PIP. OT Sensation Assessment Edema Edema Present M9 OT- IP Assessment and Plan Start: 10/25/18 12:55 Freq: Status: Active Protocol: Document 06/11/18 15:56 [facility] (Rec: 06/11/18 16:12 [facility] [id number]) OT Summary Assessment and Plan Potential Rehabilitation Potential Fair Analytic Complexity at Evaluation Moderate Summary OT Impairments Pain Range of Motion Strength Balance Coordination Sensation Functional Cognition Functional Mobility Self-Feeding Grooming Dressing Toileting Bathing Toilet Transfers Shower Transfers Progress Towards Goals Slow Progress due to Pain Slow Progress due to Medical Issues Slow Progress due to Activity Tolerance Slow Progress due to Cognition Assessment Summary Pt MOD complexity and main barrier is pain, decreased activity tolerance, strength, endurance, and now needing use of mechanical lift for transfers. Pt is far from baseline as able to walk with FWW and MOD I with all ADL's. Pt would benefit form skilled rehab prior to going home. Goals Self-Feeding Goal Standby Assistance Grooming Goal Standby Assistance Dressing Goal Moderate Assistance Toileting Goal Moderate Assistance Toilet Transfer Goal Moderate Assistance Patient/Caregiver Education Goal Caregiver Independent Assisting Patient Days to Meet Goals 10 Frequency of Treatment Frequency Of Treatment Once a Day Treatment Plan OT Treatment Plan ADL Training Functional Cognition Training Functional Mobility Patient/Family Education Discharge Planning Other Treatment Recommendations and Next Grooming from recliner. Treatment Focus Discharge Recommendations OT Discharge Recommendations SNF Rehab Home Equipment Needs Tub bench
--- NOTE | 2018-06-11 16:14 | CM.DPC ---
DCP: continued: Discussed case in Team Rounds and progress note from Dr. Blanco is now noted. Therapy is beginnning to work with pt and have identified thus far need for consideration of HH vs SNF. PT note today shows that pt is currenty up with a mechanical life. Pt was weaned off the ventilator support on the , used BiPap last night and is currently on 5L 02/. PT/OT and [facility] are seeing pt. DCP will follow to continue the discussion of d/c issues and options. Of note: insurance is [facility] Medicare ADV plan.
[2018-06-11] MEDS: VANCOMYCIN 1,250 MG in SODIUM CHLORIDE 0.9% 250 ML IV (16:29)
[2018-06-11] MEDS: ATORVASTATIN 20 MG TABLET 40 MG PO (21:00)
[2018-06-12] VITALS (17 sets, daily range): BP systolic 86–107; BP diastolic 50–67; PULSE 90–115; RESP 8–26; TEMP 31–36.3; O2SAT 92–98
[2018-06-12] MEDS: LORazepam 0.5 MG TABLET PO (00:08)
[2018-06-12] MEDS: MORPHINE 2 MG/ML INJ IV (01:58)
[2018-06-12] MEDS: OXYCODONE IR 5 MG TABLET 10 MG PO ×4 (03:31→22:42)
[2018-06-12 05:07] LABS: Add Manual Diff / Slide Review NO; Basophils Percent Auto 0.2 % (0-2); Eosinophils Percent Auto 1.3 % (2-4); Hematocrit 37.4 % (41-53); Hemoglobin 11.9 g/dL (13.5-17.5); Lymphocytes Percent Auto 8.2 % (25-40); Mean Corpuscular HGB Conc 31.9 % (30-36); Mean Corpuscular Hemoglobin 28.9 PG (26-34); Mean Corpuscular Volume 90.6 fL (80-100); Monocytes Percent Auto 11.3 % (3-14); Neutrophils Absolute Auto 8300 /uL (3000-5900); Platelet Count 112 X10^3/uL (150-400); Red Blood Cell Count 4.12 X10^6/uL (4.5-5.9); Red Cell Distribution Width 16.7 % (11.6-14.8); White Blood Cell Count 10.6 X10^3/uL (4.5-11.0)
[2018-06-12 05:15] LABS: Alanine Aminotransferase 32 IU/L (21-72); Albumin 2.8 g/dL (3.5-5.0); Albumin Globulin Ratio 1.1 (1.0-2.8); Alkaline Phosphatase 52 U/L (38-126); Aspartate Aminotransferase 34 IU/L (17-59); BUN Creatinine Ratio 25.6 (6-22); Bilirubin Total 0.5 mg/dL (0.2-1.3); Blood Urea Nitrogen 46 mg/dL (9-20); Carbon Dioxide 29 mmol/L (22-32); Chloride 101 mmol/L (98-107); Estimated Glomerular Filt Rate 37.2 mL/min (>60); Globulin 2.6 g/dL (1.7-4.1); Glucose 147 mg/dL (80-110); HEMOLYSIS 24 (0-50); Magnesium 2.6 mg/dL (1.6-2.3); Potassium 3.9 mmol/L (3.4-5.1); Sodium 141 mmol/L (137-145); Total Protein 5.4 g/dL (6.3-8.2)
[2018-06-12 06:00] LABS: Thyroid Stimulating Hormone 1.85 uIU/mL (0.47-4.68)
[2018-06-12] MEDS: BECLOMETHASONE 40 MCG INH 10.6 GM 2 PUFF INH ×2 (06:17→16:36)
--- NOTE | 2018-06-12 06:54 | PC.NURSE ---
NOC Shift: Pt AOx2, restless on Bipap 35%. Pt w/difficulty tolerating Bipap, starts to cry when spoken to only mumbles yes, no answers to RN. Does say he has pain in back, lower legs. Pt repositioned for comfort, HS care given and medicated for anxiety. Discussed importance of Bipap. Pt did not sleep much throughout shift, continued to medicate for pain issues. By AM pt placed back on 4L NC HiFlo AM care given and now is dozing off in bed. VSS, Afib BBB RVR on tele. Needs to be encouraged w/mobility and to stay awake.
--- NOTE | 2018-06-12 08:25 | CM.DPC ---
Clinicals faxed for SNF auth per Radha
[2018-06-12] MEDS: ASPIRIN EC 81 MG TABLET PO (09:00)
[2018-06-12] MEDS: POLYETHYLENE GLYCOL 3350 17 GM POWD.PACK PO (09:00)
[2018-06-12] MEDS: PANTOPRAZOLE 40 MG VIAL IV (09:00)
[2018-06-12] MEDS: DOCUSATE 100 MG CAPSULE PO ×2 (09:01→22:37)
[2018-06-12] MEDS: HEPARIN 5,000 UNIT/ML VIAL 5000 UNIT SUBCUT ×2 (09:01→22:38)
[2018-06-12] MEDS: ACETAMINOPHEN 325 MG TABLET 650 MG PO (09:01)
[2018-06-12] MEDS: PROPRANOLOL 10 MG TABLET PO ×2 (09:01→14:19)
[2018-06-12] MEDS: SODIUM CHLORIDE 0.9% FLUSH 10 ML IV ×2 (09:38→22:36)
--- NOTE | 2018-06-12 09:42 | PC.NURSE ---
PT WITH DELAYED SPEECH AND RESPONSES - BUT APPROPRIATE MOSTLY- HEART RATE INCREASED TO THE 130'S AFIB UNTIL MEDICATED WITH PO PROPRANOLOL ( WHICH IS FOR HIS TREMORS) - ALSO MEDICATED FOR HIS GENERALIZED C/O PAIN AND DISCOMFORT - FLACC OF 5 BUT HE IS VAGUE ABOUT LOCATION OF PAIN ALTHOUGH HE DOES MENTION NECK AND UPON ASSESSMENT HIS RIGHT HAND SEEMS TO BE BOTHERING HIM - CALLING OUT WHEN EVEN THE LIGHTEST TOUCH TO THIS AREA- THIS RN FED HIM BREAKFAST HE IS UNABLE TO FEED HIMSELF THIS AM- VERY MINIMAL INDEPENDENT MOVEMENT NOTED
--- NOTE | 2018-06-12 11:25 | PT.IPTN ---
Current Diagnoses Sepsis, unspecified organism (06/07/18) Hypermagnesemia (06/07/18) Hyperosmolality and hypernatremia (06/07/18) Alkalosis (06/07/18) Metabolic encephalopathy (06/07/18) Essential (primary) hypertension (06/07/18) Heart failure, unspecified (06/07/18) Chronic obstructive pulmonary disease, unspecified (06/07/18) Chronic pulmonary edema (06/07/18) Acute respiratory failure with hypercapnia (06/07/18) Acute and chronic respiratory failure with hypoxia (06/07/18) Chronic kidney disease, stage 3 (moderate) (06/07/18) Physical Therapy Treatment Note M2 PT-IP Current Condition Start: 06/10/18 10:26 Freq: NEEDED Status: Active Protocol: Document 06/10/18 10:27 [facility] (Rec: 06/10/18 11:22 [facility] [id number]) Physical Therapy Current Condition Current Condition Evaluation Date 06/10/18 Treatment Diagnosis SOB, weakness M3 PT-IP Subjective Start: 06/10/18 10:26 Freq: NEEDED Status: Active Protocol: Document 06/12/18 11:25 [facility] (Rec: 06/12/18 12:29 [facility] [id number]) Subjective Physical Therapy Visit Type Type Treatment Note Visit Start Time 11:05 Visit Stop Time 11:25 Total Visit Minutes 20 Number of PATIENT TRANSITION SPECIALIST Visits 4 Physical Therapy Visit Comments Patient Comments Pt willing to get up to chair. Therapy Pain Assessment Pain When Pain Assessed During Mobility Pain Present Pain Present Pain Reported M4 PT-IP Mobility and Gait Start: 06/10/18 10:26 Freq: NEEDED Status: Active Protocol: Document 06/12/18 11:25 [facility] (Rec: 06/12/18 12:29 [facility] [id number]) PT-Bed Mobility Assessment Rolling Type of Rolling Roll to Right Level of Assist Maximal Assistance 2 Person Assistance Supine to Sit Supine to Sit Maximum Assistance 2 Person Assistance Head of Bed Elevated Scooting Scooting to Edge of Bed Maximum Assistance Scooting Up and Down in Bed Dependent PT-Transfer Assessment Sit to and From Stand Sit to and from Stand Maximum Assistance Equipment Transfer Assistive Device Mechanical Lift Orthotic/Prosthetic Devices or Brace: No Transfers Transfer Destination Bed Transfer Technique Mechanical Lift Transfer Ability Level of Assist Total Assistance 2 Person Assistance Comments Mobility Comments Sit to stand for transfer from bed to chair. Mod to CGA for EOB sitting balance. M5 PT-IP Objective Assessments Start: 06/10/18 10:26 Freq: NEEDED Status: Active Protocol: Document 06/10/18 10:27 [facility] (Rec: 06/10/18 11:22 [facility] [id number]) Gross Range of Motion Upper Extremity ROM Assessment Bilaterally Impaired Impairments difficulty reaching LUE across body for rolling d/t pain Lower Extremity ROM Assessment Bilaterally Impaired Impairments pain limits range: difficulty bending knees d/t pain Strength Upper Extremity Strength Assessment Bilaterally Impaired Lower Extremity Strength Assessment Bilaterally Impaired M6 PT-IP Treatment Start: 06/10/18 10:26 Freq: NEEDED Status: Active Protocol: Document 06/11/18 16:32 [facility] (Rec: 06/11/18 16:39 [facility] [id number]) Physical Therapy Treatment Exercises Exercises Ankle Pumps Gluteal Sets Seated Knee Flexion/Extension M7 PT-IP Assessment and Plan Start: 06/10/18 10:26 Freq: NEEDED Status: Active Protocol: Document 06/12/18 11:25 [facility] (Rec: 06/12/18 12:29 [facility] [id number]) PT Summary Assessment and Plan Summary Assessment Summary Pt had less C/O pain or pain behaviors with moiblity. He was able to maintain EOB sitting balance with cues. He still max x2 for bed mobility. Frequency of Treatment Frequency Of Treatment Twice a Day Recommendations To Nursing Amount of Assist Needed Mechanical Lift Discharge Recommendations PT Discharge Recommendations SNF Rehab
--- NOTE | 2018-06-12 12:27 | OT.IP.TRT ---
Current Diagnoses Sepsis, unspecified organism (06/07/18) Hypermagnesemia (06/07/18) Hyperosmolality and hypernatremia (06/07/18) Alkalosis (06/07/18) Metabolic encephalopathy (06/07/18) Essential (primary) hypertension (06/07/18) Heart failure, unspecified (06/07/18) Chronic obstructive pulmonary disease, unspecified (06/07/18) Chronic pulmonary edema (06/07/18) Acute respiratory failure with hypercapnia (06/07/18) Acute and chronic respiratory failure with hypoxia (06/07/18) Chronic kidney disease, stage 3 (moderate) (06/07/18) Occupational Therapy Treatment Note M2 OT-IP Current Condition Start: 06/10/18 12:55 Freq: Status: Active Protocol: Document 06/11/18 15:56 [facility] (Rec: 06/11/18 16:12 [facility] [id number]) Occupational Therapy Current Condition Current Condition Evaluation Date 06/11/18 Treatment Diagnosis Altered mental status, acute respiratory failure Diagnosis Onset Date 06/07/18 M3 OT- IP Subjective and Pain Start: 06/10/18 12:55 Freq: Status: Active Protocol: Document 06/12/18 12:12 [facility] (Rec: 06/12/18 12:27 [facility] [id number]) OT- Subjective Occupational Therapy Visit Type Type Treatment Note Visit Start Time 11:10 Visit Stop Time 11:30 Total Visit Minutes 20 Occupational Therapy Visit Comments Patient Comments Pt agreeable to get up. OT Pain Assessment Pain When Pain Assessed At Rest Pain Present Pain Present Pain Reported M4 OT- IP ADL's Start: 06/10/18 12:55 Freq: Status: Active Protocol: Document 06/12/18 12:12 [facility] (Rec: 06/12/18 12:27 [facility] [id number]) OT ADL-Toileting Comments OT Toileting Comments Pt has catheter. M6 OT- IP Functional Cognition Start: 06/10/18 12:55 Freq: Status: Active Protocol: Document 06/12/18 12:12 [facility] (Rec: 06/12/18 12:27 [facility] [id number]) Cognitive Factors Limiting Selfcare Function Cognitive Ability Level of Alertness Confusional State Drowsy Patient Orientation Name Ability to Follow Commands Able to Follow One Step Commands with Increased Time Cognitive Comments Cognitive Assessment Comments Pt very sleepy and not responding well to commands today. M7 OT- IP Mobility and Balance Start: 06/10/18 12:55 Freq: Status: Active Protocol: Document 06/12/18 12:12 [facility] (Rec: 06/12/18 12:27 [facility] [id number]) OT- Bed Mobility Assessment Rolling Type of Rolling Roll to Right Level of Assistance Maximum Assistance 2 Person Assistance Supine to Sit Supine to Sit Assist Maximum Assistance 2 Person Assistance OT-Transfer Assessment Sit to and From Stand Sit to and from Stand Total Assistance Transfers Transfer Ability Total Assistance Technique Transfer Technique Mechanical Lift Comments Mobility Comments Pt having to use mechanical lift. Today after having pt stretching into anterior tilt able to sit at edge of bed after positioned SBA. OT- Balance Assessment Sitting Balance and Reactions Static Sitting Balance Ability Fair Dynamic Sitting Balance Ability Poor M8 OT- IP Objective Assessments Start: 06/10/18 12:55 Freq: Status: Active Protocol: Document 06/12/18 12:12 [facility] (Rec: 06/12/18 12:27 [facility] [id number]) OT Gross Range of Motion Upper Extremity Range of Motion Assessment Bilaterally Impaired ROM Impairments Today able to raise right hand up to his forehead. Left UE minimal movement to lift his arm up when trying to get the pillow underneath. M9 OT- IP Assessment and Plan Start: 06/10/18 12:55 Freq: Status: Active Protocol: Document 06/12/18 12:12 [facility] (Rec: 06/12/18 12:27 [facility] [id number]) OT Summary Assessment and Plan Potential Rehabilitation Potential Fair Analytic Complexity at Evaluation Moderate Summary OT Impairments Pain Range of Motion Strength Balance Coordination Sensation Functional Cognition Functional Mobility Self-Feeding Grooming Dressing Toileting Bathing Toilet Transfers Shower Transfers Progress Towards Goals Slow Progress due to Pain Slow Progress due to Medical Issues Slow Progress due to Activity Tolerance Slow Progress due to Cognition Assessment Summary Pt continues to need extensive assist for all needs of ADL's and still needing use of mechanical lift for transfers at this time. Goals Self-Feeding Goal Standby Assistance Grooming Goal Standby Assistance Dressing Goal Moderate Assistance Toileting Goal Moderate Assistance Toilet Transfer Goal Moderate Assistance Patient/Caregiver Education Goal Caregiver Independent Assisting Patient Days to Meet Goals 10 Frequency of Treatment Frequency Of Treatment Once a Day Treatment Plan OT Treatment Plan ADL Training Functional Cognition Training Functional Mobility Patient/Family Education Discharge Planning Other Treatment Recommendations and Next Grooming from recliner. Treatment Focus Discharge Recommendations OT Discharge Recommendations SNF Rehab Home Equipment Needs Tub bench
--- NOTE | 2018-06-12 12:59 | PM.PN.1 ---
Exam Vital Signs (past 8 hours): - 06/12/18 06:18 06/12/18 07:57 06/12/18 09:00 Temperature 97.1 F L Pulse Rate 111 H 100 H Respiratory Rate 26 H Blood Pressure 96/67 107/50 L Pulse Oximetry 97 96 06/12/18 11:00 Temperature Pulse Rate 102 H Respiratory Rate 16 Blood Pressure Pulse Oximetry 93 Fraction of Inspired Oxygen 35 Oxygen Delivery Method Nasal Cannula Oxygen Flow Rate 2 Objective Labs Result Diagrams: 06/12/18 04:46 06/12/18 04:46 Labs: Laboratory Results - last 24 hr 06/12/18 06/12/18 06/12/18 04:46 04:46 04:46 WBC 10.6 RBC 4.12 L Hgb 11.9 L Hct 37.4 L MCV 90.6 MCH 28.9 MCHC 31.9 RDW 16.7 H Plt Count 112 L Neut % (Auto) 79.0 H Lymph % (Auto) 8.2 L Nobles % (Auto) 11.3 Eos % (Auto) 1.3 L Baso % (Auto) 0.2 Neut # (Auto) 8300 H Sodium 141 Potassium 3.9 Chloride 101 Carbon Dioxide 29 BUN 46 H Creatinine 1.80 H Estimated GFR 37.2 L BUN/Creatinine Ratio 25.6 H Glucose 147 H Calcium 8.0 L Magnesium 2.6 H Total Bilirubin 0.5 AST 34 ALT 32 Alkaline Phosphatase 52 B-Natriuretic Peptide 396.0 H Total Protein 5.4 L Albumin 2.8 L Globulin 2.6 Albumin/Globulin Ratio 1.1 TSH 1.85 D Assessment & Plan Plan: Assessment/Plan Narrative: 1. Acute on chronic hypercapnic hypoxic respiratory failure -probably secondary to COPD exacerbation, fluid overload and trilogy noncompliance Chest CT did reveal small bilateral pleural effusions and bilateral lower lobe small to moderate-sized infiltrate atelectasis and pulmonary edema. Suspect the change of the bases is related to atelectasis and not pneumonia - blood cultures revealed Staph species. Probably Staph epi. -he has been extubated and remains stable from pulmonary standpoint -his acidemia show significant improvement with diuresis and mechanical ventilation. His admitting ABG revealed a pH is 7.17 and a pCO2 of 114. Last ABGs done 06/09/2018 revealed a pH of 7.47 and a pCO2 of 45 -Afebrile, no leukocytosis, no lactic acidosis, procalcitonin is negative -chest x-ray showed Left basilar consolidation is suspicious for pneumonia versus atelectasis. Cardiomegaly with probable developing pulmonary edema. -I will change his IV levofloxacin to p.o. levofloxacin as the patient is extubated pulmonary status is stable and he remains afebrile since 06/10/2018 - ABG, CMP in a.m. --Respiratory therapy informed me that the patient will be set up for trilogy at home. This has been discussed with his . Hopefully the patient will be compliant 2. Acute encephalopathy This was most likely related to the patient's hypercapnic respiratory failure. As this has been corrected his encephalopathy has resolved. 3. Acute on chronic CHF exacerbation -in patient's ejection fraction is normal. There was no mention of diastolic dysfunction but the patient would be classified as HFpEF -he had been on diuretics. Presently he is not any diuretics either Lasix or Diamox. I will continue to hold diuretics his blood pressure has been on the lowish side see below -monitor I/O, daily weights -chest x-ray in a.m. 4. Hypertension -presently the patient is relatively hypotensive with blood pressures in the prior 24 hr systolic in the 90s. This morning his blood pressure was 107/50. -monitor blood pressure 5. CAD status post stenting - aspirin, atorvastatin, low-dose beta-tereso Inderal 10 mg p.o. t.i.d. 6. Hypothyroidism - TSH low at .40 -place and has been placed on levothyroxine 500 mcg daily home dose not known 7. GERD -continue pantoprazole 40 mg daily IV 8. COPD -continue duo nebs q.6 hours as needed 9. Metabolic alkalosis - corrected 10. Troponin Elevation -probable demand mismatch - ASA/Statin, beta-tereso on board
--- NOTE | 2018-06-12 14:06 | RT ---
Addendum entered by Giovanny Block, RT 06/12/18 16:56: Tasha and Kathy have spoken by phone. I am faxing over ABG and notes to her. Per Kathy, [facility] may need to wait for insurance authorization. Kathy continues to be motivated to make this NHV device happen Original Note: A discussion was made to have pt try to use Trilogy again. Pt consented yesterday to another Trilogy trial, and I spoke with pt's today (Myra, ) and she will willing and motivated for pt to try to use a Trilogy NHV again, as long as it works for pt and insurance will cover it. Dr. Galvan informed and also agrees. A call was placed to Tasha at [facility] for Trilogy set up, and she will call pt's after [phone] (Myra's knitting class will be done by then) to discuss logistics.
[2018-06-12] MEDS: levoFLOXacin 250 MG TABLET PO (14:19)
--- NOTE | 2018-06-12 14:28 | CM.DPC ---
DCP Cont: Left a message with , Kathy, to discuss discharge plan. P.T. stated that patient does not want to go to skilled. Had Yasmeen go ahead and fax clinical information to [facility]. P: DCP to follow closely, and meet with to discuss plan for patient. Stacey Davis RN/Front Desk Supervisor
--- NOTE | 2018-06-12 15:06 | PT.IPTN ---
Current Diagnoses Sepsis, unspecified organism (06/07/18) Hypermagnesemia (06/07/18) Hyperosmolality and hypernatremia (06/07/18) Alkalosis (06/07/18) Metabolic encephalopathy (06/07/18) Essential (primary) hypertension (06/07/18) Heart failure, unspecified (06/07/18) Chronic obstructive pulmonary disease, unspecified (06/07/18) Chronic pulmonary edema (06/07/18) Acute respiratory failure with hypercapnia (06/07/18) Acute and chronic respiratory failure with hypoxia (06/07/18) Chronic kidney disease, stage 3 (moderate) (06/07/18) Physical Therapy Treatment Note M2 PT-IP Current Condition Start: 06/10/18 10:26 Freq: NEEDED Status: Active Protocol: Document 06/10/18 10:27 [facility] (Rec: 06/10/18 11:22 [facility] [id number]) Physical Therapy Current Condition Current Condition Evaluation Date 06/10/18 Treatment Diagnosis SOB, weakness M3 PT-IP Subjective Start: 06/10/18 10:26 Freq: NEEDED Status: Active Protocol: Document 06/12/18 15:05 GGD (Rec: 06/12/18 15:06 GGD [id number]) Subjective Physical Therapy Visit Type Notes Pt tolerating sitting well, RN would like pt to stay up in chair and will transfer to bed after dinner with sit to stand. M4 PT-IP Mobility and Gait Start: 06/10/18 10:26 Freq: NEEDED Status: Active Protocol: Document 06/12/18 11:25 GGD (Rec: 06/12/18 12:29 GGD [id number]) PT-Bed Mobility Assessment Rolling Type of Rolling Roll to Right Level of Assist Maximal Assistance 2 Person Assistance Supine to Sit Supine to Sit Maximum Assistance 2 Person Assistance Head of Bed Elevated Scooting Scooting to Edge of Bed Maximum Assistance Scooting Up and Down in Bed Dependent PT-Transfer Assessment Sit to and From Stand Sit to and from Stand Maximum Assistance Equipment Transfer Assistive Device Mechanical Lift Orthotic/Prosthetic Devices or Brace: No Transfers Transfer Destination Bed Transfer Technique Mechanical Lift Transfer Ability Level of Assist Total Assistance 2 Person Assistance Comments Mobility Comments Sit to stand for transfer from bed to chair. Mod to CGA for EOB sitting balance. M5 PT-IP Objective Assessments Start: 06/10/18 10:26 Freq: NEEDED Status: Active Protocol: Document 06/10/18 10:27 [facility] (Rec: 06/10/18 11:22 [facility] [id number]) Gross Range of Motion Upper Extremity ROM Assessment Bilaterally Impaired Impairments difficulty reaching LUE across body for rolling d/t pain Lower Extremity ROM Assessment Bilaterally Impaired Impairments pain limits range: difficulty bending knees d/t pain Strength Upper Extremity Strength Assessment Bilaterally Impaired Lower Extremity Strength Assessment Bilaterally Impaired M6 PT-IP Treatment Start: 06/10/18 10:26 Freq: NEEDED Status: Active Protocol: Document 06/11/18 16:32 GGD (Rec: 06/11/18 16:39 GGD [id number]) Physical Therapy Treatment Exercises Exercises Ankle Pumps Gluteal Sets Seated Knee Flexion/Extension M7 PT-IP Assessment and Plan Start: 06/10/18 10:26 Freq: NEEDED Status: Active Protocol: Document 06/12/18 11:25 GGD (Rec: 06/12/18 12:29 GGD [id number]) PT Summary Assessment and Plan Summary Assessment Summary Pt had less C/O pain or pain behaviors with moiblity. He was able to maintain EOB sitting balance with cues. He still max x2 for bed mobility. Frequency of Treatment Frequency Of Treatment Twice a Day Recommendations To Nursing Amount of Assist Needed Mechanical Lift Discharge Recommendations PT Discharge Recommendations SNF Rehab
--- NOTE | 2018-06-12 18:01 | PC.NURSE ---
gregorio note pt up in chair. Pt has a glassy stare. Pt takes several minutes to answer questions. Some parroting noted. Pt able to follow simple commands, with delayed response. O2 sats 93-96% on 2 L/min high flow cannula. Pt is a known CO2 retainer, so O2 stopped. Pt needed to be fed due to muscle weakness and essential tremors. Pt getting more alert and quicker to respond. Pt moved back to bed after dinner using [id number] lift. Pt's sats down to 84% on room air after transfer, not rising. O2 titrated up to 1.5 L/min for sats of 88-90%. Pt hollering during transfer; medicated with oxycodone. Difficult to obtain reliable O2 sat reading from fingers. Forehead oximeter applied.
[2018-06-12] MEDS: ATORVASTATIN 20 MG TABLET 40 MG PO (22:37)
[2018-06-13] VITALS (15 sets, daily range): BP systolic 87–110; BP diastolic 45–56; PULSE 77–115; RESP 12–27; TEMP 32–37.1; O2SAT 92–100
[2018-06-13] MEDS: LORazepam 0.5 MG TABLET PO (00:56)
[2018-06-13] MEDS: OXYCODONE IR 5 MG TABLET 10 MG PO ×3 (02:29→21:23)
--- NOTE | 2018-06-13 03:15 | PC.NURSE ---
Addendum entered by Elif Ascencio R.N. 06/13/18 06:26: Patient tolerated am CXR and lab draw at 0430, has been sleeping since 0500, allowed to rest. Original Note: Patient had been resting and tolerating Bi-pap from midnight until now, awake and restless, has been mostly non-verbal, nodded that he was having pain and would like pain medication, replaced Bi-pap with 1L HFNC temporarily while he took PO oxycodone, SpO2 remained 88-96%, he became tearful and saying help me, please don't make me make decisions He would just repeat that without explanation. Repositioned him, attempted to give emotional support, he removed the NC and oximeter, says it hurts placed him back on the Bi-pap.
--- NOTE | 2018-06-13 04:00 | DI.RAD.S_ITS ---
PROCEDURE: XR CHEST 1V INDICATIONS: Follow-up CHF TECHNIQUE: One view of the chest was acquired. COMPARISON: [facility], CR, XR CHEST 1V, 06/07/2018, 15:46. [facility], CR, XR CHEST 1V, 06/07/2018, 20:47. None. FINDINGS: Surgical changes and devices: Extensive posterior spinal instrumentation. Lungs and pleura: No pleural effusions or pneumothorax. Low lung volumes. There are scattered Ill-defined and groundglass opacities, which appear decreased since prior study suggestive of resolving pulmonary edema. No new or focal consolidation is seen.. Mediastinum: Mediastinal contours appear normal. Heart size is normal. Bones and chest wall: No suspicious bony lesions. Overlying soft tissues appear unremarkable. IMPRESSION: Resolving pulmonary edema. No definite focal consolidation. Patchy retrocardiac consolidative opacities appear improved Dictated by: William Mares M.D. on 06/13/2018 at 8:03 Approved by: William Mares M.D. on 06/13/2018 at 8:05
[2018-06-13 05:09] LABS: Add Manual Diff / Slide Review NO; Basophils Percent Auto 0.3 % (0-2); Eosinophils Percent Auto 3.4 % (2-4); Hematocrit 35.8 % (41-53); Hemoglobin 11.4 g/dL (13.5-17.5); Lymphocytes Percent Auto 11.9 % (25-40); Mean Corpuscular HGB Conc 31.8 % (30-36); Mean Corpuscular Hemoglobin 28.8 PG (26-34); Mean Corpuscular Volume 90.6 fL (80-100); Monocytes Percent Auto 13.2 % (3-14); Neutrophils Absolute Auto 6500 /uL (3000-5900); Neutrophils Percent Auto 71.2 % (50-75); Platelet Count 132 X10^3/uL (150-400); Red Blood Cell Count 3.95 X10^6/uL (4.5-5.9); Red Cell Distribution Width 16.6 % (11.6-14.8); White Blood Cell Count 9.1 X10^3/uL (4.5-11.0)
[2018-06-13 05:18] LABS: Alanine Aminotransferase 41 IU/L (21-72); Albumin 3.1 g/dL (3.5-5.0); Alkaline Phosphatase 89 U/L (38-126); Aspartate Aminotransferase 35 IU/L (17-59); BUN Creatinine Ratio 25.8 (6-22); Bilirubin Total 0.5 mg/dL (0.2-1.3); Blood Urea Nitrogen 49 mg/dL (9-20); Calcium 8.5 mg/dL (8.4-10.2); Carbon Dioxide 32 mmol/L (22-32); Chloride 100 mmol/L (98-107); Estimated Glomerular Filt Rate 34.9 mL/min (>60); Glucose 135 mg/dL (80-110); HEMOLYSIS < 15 (0-50); Potassium 3.8 mmol/L (3.4-5.1); Sodium 140 mmol/L (137-145); Total Protein 6.1 g/dL (6.3-8.2)
[2018-06-13] MEDS: LEVOTHYROXINE 50 MCG TABLET PO (08:28)
[2018-06-13] MEDS: ASPIRIN EC 81 MG TABLET PO (08:29)
[2018-06-13] MEDS: ACETAMINOPHEN 325 MG TABLET 650 MG PO (08:29)
[2018-06-13] MEDS: PROPRANOLOL 10 MG TABLET PO ×3 (08:29→21:22)
[2018-06-13] MEDS: HEPARIN 5,000 UNIT/ML VIAL 5000 UNIT SUBCUT ×2 (08:30→21:22)
[2018-06-13] MEDS: DOCUSATE 100 MG CAPSULE PO ×2 (08:30→21:22)
[2018-06-13] MEDS: PANTOPRAZOLE 40 MG VIAL IV (08:30)
[2018-06-13] MEDS: SODIUM CHLORIDE 0.9% FLUSH 10 ML IV ×2 (08:31→21:22)
[2018-06-13] MEDS: levoFLOXacin 250 MG TABLET PO (08:38)
[2018-06-13] MEDS: POLYETHYLENE GLYCOL 3350 17 GM POWD.PACK PO (08:56)
[2018-06-13] MEDS: BECLOMETHASONE 40 MCG INH 10.6 GM 2 PUFF INH (09:05)
[2018-06-13 10:34] LABS: HCO3 ABG 32 mmol/L (23-27); PO2 ABG 62 mmHg (80-105); TCO2 ABG 34 mmol/L (23-27); pH ABG 7.33 (7.35-7.45)
[2018-06-13 10:35] LABS: Oxygen Saturation ABG 89 % (95-100)
--- NOTE | 2018-06-13 11:05 | PT.IPTN ---
Current Diagnoses Sepsis, unspecified organism (06/07/18) Hypermagnesemia (06/07/18) Hyperosmolality and hypernatremia (06/07/18) Alkalosis (06/07/18) Metabolic encephalopathy (06/07/18) Essential (primary) hypertension (06/07/18) Heart failure, unspecified (06/07/18) Chronic obstructive pulmonary disease, unspecified (06/07/18) Chronic pulmonary edema (06/07/18) Acute respiratory failure with hypercapnia (06/07/18) Acute and chronic respiratory failure with hypoxia (06/07/18) Chronic kidney disease, stage 3 (moderate) (06/07/18) Physical Therapy Treatment Note M2 PT-IP Current Condition Start: 06/10/18 10:26 Freq: NEEDED Status: Active Protocol: Document 06/10/18 10:27 LR (Rec: 06/10/18 11:22 [facility] [id number]) Physical Therapy Current Condition Current Condition Evaluation Date 06/10/18 Treatment Diagnosis SOB, weakness M3 PT-IP Subjective Start: 06/10/18 10:26 Freq: NEEDED Status: Active Protocol: Document 06/13/18 11:05 [facility] (Rec: 06/13/18 11:26 [facility] [id number]) Subjective Physical Therapy Visit Type Type Treatment Note Visit Start Time 10:50 Visit Stop Time 11:05 Total Visit Minutes 15 Number of SUPERVISOR POST WAVE Visits 0 Physical Therapy Visit Comments Patient Comments pt intially not wanting to move, but agreeable to get to chair. M4 PT-IP Mobility and Gait Start: 06/10/18 10:26 Freq: NEEDED Status: Active Protocol: Document 06/13/18 11:05 RCC (Rec: 06/13/18 11:26 [facility] [id number]) PT-Bed Mobility Assessment Rolling Type of Rolling Roll to Right Level of Assist Maximal Assistance 2 Person Assistance Supine to Sit Supine to Sit Maximum Assistance 2 Person Assistance Scooting Scooting to Edge of Bed Maximum Assistance PT-Transfer Assessment Sit to and From Stand Sit to and from Stand Maximum Assistance Equipment Transfer Assistive Device Mechanical Lift Orthotic/Prosthetic Devices or Brace: No Transfer Ability Level of Assist Total Assistance 2 Person Assistance Comments Mobility Comments Power Stander (sit<->stand) used for transfer. Pt able to lift hands onto Power Stander this session. M5 PT-IP Objective Assessments Start: 06/10/18 10:26 Freq: NEEDED Status: Active Protocol: Document 06/10/18 10:27 [facility] (Rec: 06/10/18 11:22 [facility] [email or web address]) Gross Range of Motion Upper Extremity ROM Assessment Bilaterally Impaired Impairments difficulty reaching LUE across body for rolling d/t pain Lower Extremity ROM Assessment Bilaterally Impaired Impairments pain limits range: difficulty bending knees d/t pain Strength Upper Extremity Strength Assessment Bilaterally Impaired Lower Extremity Strength Assessment Bilaterally Impaired M6 PT-IP Treatment Start: 06/10/18 10:26 Freq: NEEDED Status: Active Protocol: Document 06/11/18 16:32 GGD (Rec: 06/11/18 16:39 GGD [email or web address]) Physical Therapy Treatment Exercises Exercises Ankle Pumps Gluteal Sets Seated Knee Flexion/Extension M7 PT-IP Assessment and Plan Start: 06/10/18 10:26 Freq: NEEDED Status: Active Protocol: Document 06/13/18 11:05 [facility] (Rec: 06/13/18 11:26 [facility] [id number]) PT Summary Assessment and Plan Summary Assessment Summary Pt with slight standing response initially with Power Stander, but fatigues rapidly. He was able to lift his hands up with assistance to the appropriate position during the transfer. Pt still not safe to manually transfer, requires assistance with sitting balance on EOB. Goals Bed Mobility Goal Minimal Assistance Transfer Goal Minimal Assistance Gait Goal Minimal Assistance Gait Distance 25 Other Goals up/down stairs Days to Meet Goals 6 Frequency of Treatment Frequency Of Treatment Twice a Day Recommendations To Nursing Amount of Assist Needed Mechanical Lift Discharge Recommendations PT Discharge Recommendations SNF Rehab
[2018-06-13] MEDS: BISACODYL 10 MG SUPP PR (11:22)
--- NOTE | 2018-06-13 11:55 | CM.DPC ---
DCP Cont: Spoke with Kathy, patient's . Discussed plan when patient is ready for discharge. stated, There's no way I'm going to be able to take care of him at home, because he is so weak. Respiratory therapy is working on getting trilogy machine for patient. Discussed choice list over phone, regarding skilled facilities. is requesting [facility]. Stated, its local, and would be the best for him. Called Verónica at [facility]. Stated that they will have beds available. Gave her name and diagnosis. Stated that there was no need to fax clinicals today, could do next week. Let her know that insurance is [employer]. Hospitalist at rounds today stated that patient would be here for several more days. P: DCP to continue to follow. Continue to follow up with Verónica at [facility] when close to discharge. She has room available, and will also have to check insurance. Stacey Davis RN/Field Producer
--- NOTE | 2018-06-13 12:07 | PM.PN.1 ---
Subjective Date Patient Seen: 06/13/18 Time Patient Seen: 12:07 Interval history: He is seen in the ICU here today to follow-up his acute on chronic hypercapnic hypoxic respiratory failure, COPD exacerbation, atrial fibrillation, acute on chronic CHF exacerbation, hypertension, CAD, hypothyroidism. His heart rate is now generally below 100. His blood pressures are currently 101/55. There is no fever and his respiratory rate is normal at 22. He continues to need BiPAP at night and thus ICU status. The GFR has dropped from 37 down to 34. The creatinine is 1.9 and BUN 49. Exam Vital Signs (past 8 hours): - 06/13/18 04:09 06/13/18 04:45 06/13/18 06:12 Temperature 98.7 F Pulse Rate 94 H Respiratory Rate 17 Blood Pressure 102/54 L 106/55 L 106/55 L Pulse Oximetry 97 06/13/18 07:24 06/13/18 07:25 06/13/18 09:06 Temperature 98.2 F Pulse Rate 95 H 115 H Respiratory Rate 22 20 Blood Pressure 101/55 L 101/55 L Pulse Oximetry 99 93 06/13/18 11:56 Temperature 98 F Pulse Rate 103 H Respiratory Rate 16 Blood Pressure 110/47 L Pulse Oximetry 92 Fraction of Inspired Oxygen 0.25 Oxygen Delivery Method High Flow Nasal Cannula Oxygen Flow Rate 1.5 Narrative Exam Narrative: He is alert and oriented x3 but appears to be uncomfortable with diffuse aching and pain, groaning. He says he is unable to make any movements when requested such as sitting forward for a thorough lung exam. The head of his bed is up at nearly 90? already. Heart is regular rate and rhythm without murmur. Lungs are clear to auscultation bilaterally. Extremities have no ankle edema. Abdomen is soft and obese. Objective Labs Result Diagrams: 06/13/18 05:00 06/13/18 05:00 Labs: Laboratory Results - last 24 hr 06/13/18 06/13/18 06/13/18 05:00 05:00 10:18 WBC 9.1 RBC 3.95 L Hgb 11.4 L Hct 35.8 L MCV 90.6 MCH 28.8 MCHC 31.8 RDW 16.6 H Plt Count 132 L Neut % (Auto) 71.2 Lymph % (Auto) 11.9 L Hopkins % (Auto) 13.2 Eos % (Auto) 3.4 Baso % (Auto) 0.3 Neut # (Auto) 6500 H ABG pH 7.33 L ABG pCO2 61.3 H* ABG pO2 62 L ABG HCO3 32 H ABG Total CO2 34 H ABG O2 Saturation 89 L ABG Base Excess 7.0 H FiO2 Sodium 140 Potassium 3.8 Chloride 100 Carbon Dioxide 32 BUN 49 H Creatinine 1.90 H Estimated GFR 34.9 L BUN/Creatinine Ratio 25.8 H Glucose 135 H Calcium 8.5 Total Bilirubin 0.5 AST 35 ALT 41 Alkaline Phosphatase 89 Total Protein 6.1 L Albumin 3.1 L Globulin 3.0 Albumin/Globulin Ratio 1.0 Assessment & Plan Plan: Assessment/Plan Narrative: 1. Acute on chronic hypercapnic hypoxic respiratory failure -probably secondary to COPD exacerbation, fluid overload and trilogy noncompliance Chest CT did reveal small bilateral pleural effusions and bilateral lower lobe small to moderate-sized infiltrate atelectasis and pulmonary edema. Suspect the change of the bases is related to atelectasis and not pneumonia - blood cultures revealed Staph species. Probably Staph epi so the vancomycin was stopped. -he has been extubated and remains stable from pulmonary standpoint -his acidemia show significant improvement with diuresis and mechanical ventilation. His admitting ABG revealed a pH is 7.17 and a pCO2 of 114. Last ABGs done 06/09/2018 revealed a pH of 7.47 and a pCO2 of 45 -Afebrile, no leukocytosis, no lactic acidosis, procalcitonin was negative -chest x-ray showed Left basilar consolidation is suspicious for pneumonia versus atelectasis. Cardiomegaly with probable developing pulmonary edema. -he is now on oral levofloxacin as the patient is extubated pulmonary status is stable and he remains afebrile since 06/10/2018 - ABC done today with a pH of 7.33, pCO2 of 61, PO2 of 62. --Respiratory therapy after discussions with his will be set up for trilogy again at home. The hope is that with some changes in the tubing length, mask, etc he will be able to tolerate it this time. 2. Acute encephalopathy This was most likely related to the patient's hypercapnic respiratory failure. As this has been corrected his encephalopathy has improved but he can still be challenging to communicate with. 3. Acute on chronic CHF exacerbation -in patient's ejection fraction is normal. There was no mention of diastolic dysfunction but the patient would be classified as HFpEF -he had been on diuretics. Presently he is not any diuretics either Lasix or Diamox. Resume diuretics if indicated. -monitor I/O, daily weights -chest x-ray today shows a resolving pulmonary edema pattern and improved patchy retrocardiac consolidative opacities. 4. Hypertension -presently the patient is relatively hypotensive with blood pressures in the prior 24 hr systolic in the 90s. This morning his blood pressure was 107/50. -monitor blood pressure 5. CAD status post stenting - aspirin, atorvastatin, low-dose beta-tereso Inderal 10 mg p.o. t.i.d. 6. Hypothyroidism - TSH 1.85 on 06/12 -he has been placed on levothyroxine 50 mcg daily, home dose not known 7. GERD -continue pantoprazole 40 mg daily IV 8. COPD -continue duo nebs q.6 hours as needed -no indication for steroids oral or IV at this time 9. Metabolic alkalosis - corrected 10. Troponin Elevation -probable demand mismatch - ASA/Statin, beta-tereso on board Disposition is transfer to [facility]/possible discharge home on trilogy within the next 1-3 days.
--- NOTE | 2018-06-13 13:48 | PT.IPTN ---
Current Diagnoses Sepsis, unspecified organism (06/07/18) Hypermagnesemia (06/07/18) Hyperosmolality and hypernatremia (06/07/18) Alkalosis (06/07/18) Metabolic encephalopathy (06/07/18) Essential (primary) hypertension (06/07/18) Heart failure, unspecified (06/07/18) Chronic obstructive pulmonary disease, unspecified (06/07/18) Chronic pulmonary edema (06/07/18) Acute respiratory failure with hypercapnia (06/07/18) Acute and chronic respiratory failure with hypoxia (06/07/18) Chronic kidney disease, stage 3 (moderate) (06/07/18) Physical Therapy Treatment Note M2 PT-IP Current Condition Start: 06/10/18 10:26 Freq: NEEDED Status: Active Protocol: Document 06/10/18 10:27 [facility] (Rec: 06/10/18 11:22 [facility] [id number]) Physical Therapy Current Condition Current Condition Evaluation Date 06/10/18 Treatment Diagnosis SOB, weakness M3 PT-IP Subjective Start: 06/10/18 10:26 Freq: NEEDED Status: Active Protocol: Document 06/13/18 13:47 [facility] (Rec: 06/13/18 13:47 [facility] [id number]) Subjective Physical Therapy Visit Type Type Patient Unavailable Notes RN wanting pt to remain up in chair and stated she and WEIGHT YARDAGE CHECKER would assist pt back to be later today. Goals Bed Mobility Goal Minimal Assistance Transfer Goal Minimal Assistance Gait Goal Minimal Assistance Gait Distance 25 Other Goals up/down stairs Days to Meet Goals 6 Frequency of Treatment Frequency Of Treatment Twice a Day Recommendations To Nursing Amount of Assist Needed Mechanical Lift Discharge Recommendations PT Discharge Recommendations SNF Rehab
--- NOTE | 2018-06-13 13:53 | PC.NURSE ---
pt with vague stares and minimal verbal resonses this am but clearing as day goes on- with more verbla communication- did clearly request to get back to bed following up in chair x approx 3 hours- he did not attempt to feed self at all when set up for lunch then assisted by staff- on bipap most of night and then removed at 0810 for am meal and following abg- presently on 1.5 liter via hfnc with humidity- medicated with 10mg po oxycodone for c/o pain- asmita patent
--- NOTE | 2018-06-13 16:30 | PC.NURSE ---
Addendum entered by Jessie Blair R.N. 06/13/18 22:24: Pt able to move arms better, lift them over his head. Pt still not feeding self or making an effort to feed self. Did hold sippy cup, but not able to lift it to mouth to drink. Pt spent most of shift on bipap. Original Note: gregorio note pt having frequent PVCs, trigeminy PVCs. RT here to put bipap back on.
[2018-06-13] MEDS: ATORVASTATIN 20 MG TABLET 40 MG PO (21:21)
[2018-06-14] VITALS (11 sets, daily range): BP systolic 106–134; BP diastolic 51–68; PULSE 79–103; RESP 12–34; TEMP 36.6–36.9; O2SAT 93–100
[2018-06-14] MEDS: LORazepam 0.5 MG TABLET PO (00:15)
[2018-06-14] MEDS: OXYCODONE IR 5 MG TABLET 10 MG PO (00:54)
--- NOTE | 2018-06-14 01:43 | RT ---
0050: PT OFF OF BIPAP WHILE RECEIVING MEDS BY RN.
[2018-06-14] MEDS: MORPHINE 2 MG/ML INJ IV (04:44)
[2018-06-14] MEDS: LEVOTHYROXINE 50 MCG TABLET PO (06:47)
[2018-06-14] MEDS: BECLOMETHASONE 40 MCG INH 10.6 GM 2 PUFF INH ×2 (07:53→18:44)
[2018-06-14] MEDS: levoFLOXacin 250 MG TABLET PO (07:54)
[2018-06-14] MEDS: DOCUSATE 100 MG CAPSULE PO ×2 (07:54→20:28)
[2018-06-14] MEDS: HEPARIN 5,000 UNIT/ML VIAL 5000 UNIT SUBCUT ×2 (07:54→20:27)
[2018-06-14] MEDS: ASPIRIN EC 81 MG TABLET PO (07:54)
[2018-06-14] MEDS: PANTOPRAZOLE 40 MG VIAL IV (07:55)
[2018-06-14] MEDS: PROPRANOLOL 10 MG TABLET PO (07:55)
[2018-06-14] MEDS: SODIUM CHLORIDE 0.9% FLUSH 10 ML IV ×2 (07:55→20:30)
--- NOTE | 2018-06-14 08:29 | CM.DPC ---
Referral faxed to [facility] per Beatriz
--- NOTE | 2018-06-14 09:07 | OT.IP.TRT ---
Current Diagnoses Sepsis, unspecified organism (06/07/18) Hypermagnesemia (06/07/18) Hyperosmolality and hypernatremia (06/07/18) Alkalosis (06/07/18) Metabolic encephalopathy (06/07/18) Essential (primary) hypertension (06/07/18) Heart failure, unspecified (06/07/18) Chronic obstructive pulmonary disease, unspecified (06/07/18) Chronic pulmonary edema (06/07/18) Acute respiratory failure with hypercapnia (06/07/18) Acute and chronic respiratory failure with hypoxia (06/07/18) Chronic kidney disease, stage 3 (moderate) (06/07/18) Occupational Therapy Treatment Note M2 OT-IP Current Condition Start: 06/10/18 12:55 Freq: Status: Active Protocol: Document 06/11/18 15:56 [facility] (Rec: 06/11/18 16:12 [facility] [id number]) Occupational Therapy Current Condition Current Condition Evaluation Date 06/11/18 Treatment Diagnosis Altered mental status, acute respiratory failure Diagnosis Onset Date 06/07/18 M3 OT- IP Subjective and Pain Start: 06/10/18 12:55 Freq: Status: Active Protocol: Document 06/14/18 08:56 [facility] (Rec: 06/14/18 09:07 [facility] [id number]) OT- Subjective Occupational Therapy Visit Type Type Treatment Note Visit Start Time 08:45 Visit Stop Time 08:55 Total Visit Minutes 10 OT Pain Assessment Pain When Pain Assessed At Rest Pain Present Pain Present Pain Reported Location Back Pain Behaviors Facial Grimacing Wincing M4 OT- IP ADL's Start: 06/10/18 12:55 Freq: Status: Active Protocol: Document 06/14/18 08:56 [facility] (Rec: 06/14/18 09:07 [facility] [id number]) OT [id number]-[id number] General Evaluation Self-Feeding Ability Maximum Assistance Areas Needing Assistance Bringing Utensil to Mouth Drinking From Cup/Glass Loading Utensil Opening Containers Comments OT Self-Feeding Comments Pt only able to assist minimally for self feeding, able to hold cup in right hand . Pt able to bring cup to his mouth 25% of the time and otherwise needing assist to bring cup to his mouth. Able to do AAROm with right arm 3 x 3reps, pt tends to hold his breath or mouth breath and O2 reading goes from 96% to 82-87 %, educated pt to breath through his mouth. Pt only able to lift and extend his left hand at this time. Noted delayed cough after drinking water, ceo and president notified. M6 OT- IP Functional Cognition Start: 06/10/18 12:55 Freq: Status: Active Protocol: Document 06/14/18 08:56 [facility] (Rec: 06/14/18 09:07 [facility] [id number]) Cognitive Factors Limiting Selfcare Function Cognitive Ability Level of Alertness Drowsy Lethargic Cognitive Comments Cognitive Assessment Comments Pt vert drowsy and at times not even responding to his name. Document 06/14/18 08:56 [facility] (Rec: 06/14/18 09:07 [facility] [id number]) OT Summary Assessment and Plan Summary Assessment Summary Pt continues to need extensive assist for all ADL's, functional mobility and still use of mechanical lift for transfers at this time. Pt's levelof care is too great for to assist at home and therefore would benefit from skilled rehab. Goals Self-Feeding Goal Moderate Assistance Grooming Goal Moderate Assistance Patient/Caregiver Education Goal Caregiver Independent Assisting Patient Days to Meet Goals 7 Frequency of Treatment Frequency Of Treatment Once a Day Treatment Plan OT Treatment Plan ADL Training Functional Cognition Training Functional Mobility Patient/Family Education Discharge Planning Other Treatment Recommendations and Next Grooming from recliner. Treatment Focus Discharge Recommendations OT Discharge Recommendations SNF Rehab Home Equipment Needs Defer to SNF OT pending progress and recovery.
--- NOTE | 2018-06-14 09:32 | PT.IPTN ---
Current Diagnoses Sepsis, unspecified organism (06/07/18) Hypermagnesemia (06/07/18) Hyperosmolality and hypernatremia (06/07/18) Alkalosis (06/07/18) Metabolic encephalopathy (06/07/18) Essential (primary) hypertension (06/07/18) Heart failure, unspecified (06/07/18) Chronic obstructive pulmonary disease, unspecified (06/07/18) Chronic pulmonary edema (06/07/18) Acute respiratory failure with hypercapnia (06/07/18) Acute and chronic respiratory failure with hypoxia (06/07/18) Chronic kidney disease, stage 3 (moderate) (06/07/18) Physical Therapy Treatment Note M2 PT-IP Current Condition Start: 06/10/18 10:26 Freq: NEEDED Status: Active Protocol: Document 06/10/18 10:27 LR (Rec: 06/10/18 11:22 [facility] [id number]) Physical Therapy Current Condition Current Condition Evaluation Date 06/10/18 Treatment Diagnosis SOB, weakness M3 PT-IP Subjective Start: 06/10/18 10:26 Freq: NEEDED Status: Active Protocol: Document 06/14/18 09:27 LJ (Rec: 06/14/18 09:32 LJ [id number]) Subjective Physical Therapy Visit Type Type Treatment Note Visit Start Time 09:15 Visit Stop Time 09:28 Total Visit Minutes 13 Notes Pt sitting in chair Number of IT ANALYST Visits 2 Physical Therapy Visit Comments Patient Comments Pt willing to try seated exercises M4 PT-IP Mobility and Gait Start: 06/10/18 10:26 Freq: NEEDED Status: Active Protocol: Document 06/13/18 11:05 [facility] (Rec: 06/13/18 11:26 [facility] [id number]) PT-Bed Mobility Assessment Rolling Type of Rolling Roll to Right Level of Assist Maximal Assistance 2 Person Assistance Supine to Sit Supine to Sit Maximum Assistance 2 Person Assistance Scooting Scooting to Edge of Bed Maximum Assistance PT-Transfer Assessment Sit to and From Stand Sit to and from Stand Maximum Assistance Equipment Transfer Assistive Device Mechanical Lift Orthotic/Prosthetic Devices or Brace: No Transfer Ability Level of Assist Total Assistance 2 Person Assistance Comments Mobility Comments Power Stander (sit<->stand) used for transfer. Pt able to lift hands onto Power Stander this session. M5 PT-IP Objective Assessments Start: 06/10/18 10:26 Freq: NEEDED Status: Active Protocol: Document 06/10/18 10:27 LR (Rec: 06/10/18 11:22 [facility] [id number]) Gross Range of Motion Upper Extremity ROM Assessment Bilaterally Impaired Impairments difficulty reaching LUE across body for rolling d/t pain Lower Extremity ROM Assessment Bilaterally Impaired Impairments pain limits range: difficulty bending knees d/t pain Strength Upper Extremity Strength Assessment Bilaterally Impaired Lower Extremity Strength Assessment Bilaterally Impaired M6 PT-IP Treatment Start: 06/10/18 10:26 Freq: NEEDED Status: Active Protocol: Document 06/14/18 09:27 HAILEY (Rec: 06/14/18 09:32 LJ [id number]) Physical Therapy Treatment Exercises Exercises Ankle Pumps Seated Knee Flexion/Extension M7 PT-IP Assessment and Plan Start: 06/10/18 10:26 Freq: NEEDED Status: Active Protocol: Document 06/14/18 09:27 HAILEY (Rec: 06/14/18 09:32 LJ [id number]) PT Summary Assessment and Plan Summary Assessment Summary Pt able to complete 8 bilat small ankle pumps. AAROM seated knee fl/ex x 2 before pt stated too painful to continue. Goals Bed Mobility Goal Minimal Assistance Transfer Goal Minimal Assistance Gait Goal Minimal Assistance Gait Distance 25 Other Goals up/down stairs Days to Meet Goals 6 Frequency of Treatment Frequency Of Treatment Twice a Day Recommendations To Nursing Amount of Assist Needed Mechanical Lift Discharge Recommendations PT Discharge Recommendations SNF Rehab
--- NOTE | 2018-06-14 10:08 | ST.IPDYTX ---
FURNITURE CLEANER Dysphagia Treatment FURNITURE CLEANER Dysphagia Treatment Start: 06/10/18 15:08 Freq: Status: Active Protocol: Document 06/14/18 09:57 [facility] (Rec: 06/14/18 10:07 [facility] [id number]) Dysphagia Treatment Session Time Total Visit Minutes 20 Setting Assessment Location Acute Care Visit Type Note Type Discharge Summary Patient Information Identification Type Name Subjective Observations Patient seen sitting upright in chair in room. O2 nasal cannula was removed from nose and sitting on patient's chest . When asked if he would like to wear it, he refused. Patient was minimally responsive, answering questions ~30% of the time with one word responses. Treatment Liquids Trialed Thin Solids Trialed Mechanical Soft Administration Type Straw Dependent Feeding Oral Strategies Upright at 90 degrees Controlled Bite/Sip Size Alternate Liquids/Solids Other Pharyngeal Strategies Sitting Upright (90 deg) Effortful Swallow Small Bites and Sips Alternate Liquids/Solids Treatment Activities Patient required set-up assistance with diced tropical fruit. He self-fed one bite of fruit and one straw sip of water and declined further trials. No signs or symptoms of aspiration were observed with trials. Per nursing, patient ate very little for breakfast this morning and required 1:1 feeding assist. Assessment Assessment of Improvement Despite minimal oral intake and increased need for feeding assistance, patient does not present with signs of pharyngeal dysphagia. Continue mechanical soft textures for mild oral dysphagia related to dentition/mastication. Diet Recommendations Recommendations Continue Current Diet Liquids Order Thin Diet Order Mechanical Soft Medication Recommendations As Tolerated Additional Dietary Needs 1:1 Assistance Encourage to Self-Feed Reminders to Use Strategies Aspiration Precautions Recommended Precautions Upright at 90 Degrees Alternate Liquids/Solids Frequent Rest Periods Small Bites/Sips Effortful Swallow Lingual Sweep Check for Pocketing Additional Precautions Liquid wash after dry textures Treatment Plan Placement Recommendation after Discharge Intermediate Facility Appropriate for Continued Therapy No Therapy Recommendations D/c from ST at this time. Patient may need ST at SNF for education on strategies and self-monitoring during meals once strength improves and he is able to feed himself.
--- NOTE | 2018-06-14 10:14 | PC.NURSE ---
PT HOLLERING LOUDLY USING PROFANITY TOWARD STAFF AND IN GENERAL- THROWING CUPS IN ROOM. THIS RN PLACED FIRM BEHAVIORAL GUIDELINES AND REMOVED ALL ITEMS FROM ROOM- TO INCLUDE SHARPS CONTAINER ( PREVIOUS ADMIT SHE WAS VISUALIZED RUMMAGING THRU CONTAINER) AND BLUE NURSE YARD SWITCH OPERATOR WELL ALL SUPPLIES AND LINENS. BLOOD SUGAR CHECKS REMAIN Q 1 HOUR AT THIS TIME WITH INSULIN GTT ADJUSTMENTS PER PROTOCOL- NEXT BMP TO BE DRAWN IN THE 12 HOUR - PT VISIBLY RELAXED AFTER PO DILAUDID ORDERED - ALSO LIMITS ON SUGARFREE PUDDING/JELLO INGESTION
[2018-06-14] MEDS: FUROSEMIDE 40 MG TABLET PO (11:35)
[2018-06-14] MEDS: POLYETHYLENE GLYCOL 3350 17 GM POWD.PACK PO (11:35)
[2018-06-14] MEDS: ACETAMINOPHEN 325 MG TABLET 650 MG PO ×2 (11:35→20:30)
[2018-06-14] MEDS: FLUCONAZOLE 100 MG TABLET PO (11:35)
--- NOTE | 2018-06-14 13:38 | DIET.PN ---
Off tube feedings and taking PO nutrition. Eating poorly at 10-50% meals. Has strange affect; appears very distracted; vague with answers to questions. Not interested in eating lunch. Per RNCristine, pt has been fed while acutely ill and now doesn't even try. Has been offering/encouraging ONS-Glucerna.
[2018-06-14] MEDS: GABAPENTIN 300 MG CAPSULE 900 MG PO ×2 (15:03→20:28)
[2018-06-14] MEDS: PROPRANOLOL 40 MG TABLET 60 MG PO ×2 (15:04→20:30)
--- NOTE | 2018-06-14 15:52 | PT.IPTN ---
Current Diagnoses Sepsis, unspecified organism (06/07/18) Hypermagnesemia (06/07/18) Hyperosmolality and hypernatremia (06/07/18) Alkalosis (06/07/18) Metabolic encephalopathy (06/07/18) Essential (primary) hypertension (06/07/18) Heart failure, unspecified (06/07/18) Chronic obstructive pulmonary disease, unspecified (06/07/18) Chronic pulmonary edema (06/07/18) Acute respiratory failure with hypercapnia (06/07/18) Acute and chronic respiratory failure with hypoxia (06/07/18) Chronic kidney disease, stage 3 (moderate) (06/07/18) Physical Therapy Treatment Note M2 PT-IP Current Condition Start: 06/10/18 10:26 Freq: NEEDED Status: Active Protocol: Document 06/10/18 10:27 [facility] (Rec: 06/10/18 11:22 [facility] [id number]) Physical Therapy Current Condition Current Condition Evaluation Date 06/10/18 Treatment Diagnosis SOB, weakness M3 PT-IP Subjective Start: 06/10/18 10:26 Freq: NEEDED Status: Active Protocol: Document 06/14/18 15:04 HAILEY (Rec: 06/14/18 15:52 [id number]) Subjective Physical Therapy Visit Type Type Treatment Note Visit Start Time 15:04 Visit Stop Time 15:39 Total Visit Minutes 35 Physical Therapy Visit Comments Patient Comments Pt willing to stand with mechanicla lift M4 PT-IP Mobility and Gait Start: 06/10/18 10:26 Freq: NEEDED Status: Active Protocol: Document 06/14/18 15:04 HAILEY (Rec: 06/14/18 15:52 [id number]) PT-Transfer Assessment Sit to and From Stand Sit to and from Stand Maximum Assistance Equipment Transfer Assistive Device Mechanical Lift Orthotic/Prosthetic Devices or Brace: No Transfer Ability Level of Assist Total Assistance 2 Person Assistance Comments Mobility Comments Power stander (sit<>stand). Pt able to use UEs to stabilize when being lifted. Able to weight shift side-side, front- back while standing. Stood for 4 minutes. M5 PT-IP Objective Assessments Start: 06/10/18 10:26 Freq: NEEDED Status: Active Protocol: Document 06/10/18 10:27 [facility] (Rec: 06/10/18 11:22 [facility] [id number]) Gross Range of Motion Upper Extremity ROM Assessment Bilaterally Impaired Impairments difficulty reaching LUE across body for rolling d/t pain Lower Extremity ROM Assessment Bilaterally Impaired Impairments pain limits range: difficulty bending knees d/t pain Strength Upper Extremity Strength Assessment Bilaterally Impaired Lower Extremity Strength Assessment Bilaterally Impaired M6 PT-IP Treatment Start: 06/10/18 10:26 Freq: NEEDED Status: Active Protocol: Document 06/14/18 15:04 (Rec: 06/14/18 15:52 [id number]) Physical Therapy Treatment Exercises Exercises Gluteal Sets Other Treatments Other Treatment Performed weight shifting in power stander glute squeezes abdominal bracing. M7 PT-IP Assessment and Plan Start: 06/10/18 10:26 Freq: NEEDED Status: Active Protocol: Document 06/14/18 15:04 (Rec: 06/14/18 15:52 [id number]) PT Summary Assessment and Plan Summary Assessment Summary Pt showed improved cognition and willingness to participate in therapy. Able to stand 4 min with power stander. Unable to participate in controlling descent into chair. Goals Bed Mobility Goal Minimal Assistance Transfer Goal Minimal Assistance Gait Goal Minimal Assistance Gait Distance 25 Other Goals up/down stairs Days to Meet Goals 6 Frequency of Treatment Frequency Of Treatment Twice a Day Recommendations To Nursing Amount of Assist Needed Mechanical Lift Discharge Recommendations PT Discharge Recommendations [facility] Rehab
--- NOTE | 2018-06-14 17:20 | P.PN_ITS ---
Subjective Date Patient Seen: 06/14/18 Interval history: Patient's respiratory status has been stable since extubation on 06/09/2018. We are awaiting delivery of Trilogy ventilator for outpatient use. He has been intermittently confused since extubation. Exam Vital Signs (past 8 hours): - 06/14/18 12:00 06/14/18 15:48 Temperature 98.4 F 98.0 F Pulse Rate 103 H 80 Respiratory Rate 34 H 25 H Blood Pressure 134/59 L 106/51 L Pulse Oximetry 95 Fraction of Inspired Oxygen 30 Oxygen Delivery Method Room Air Oxygen Flow Rate 1 Narrative Exam Narrative: GENERAL: Sleepy but pleasant and cooperative obese male sitting in chair HEENT: Oral thrush plaque on tongue CHEST: Diminished bilaterally, without crackles or wheeze CARDIAC: Regular rate and rhythm. Lungs: Diminished bilaterally without crackles or wheeze ABDOMEN: Obese, nontender Extremities: Trace bilateral pretibial edema NEUROLOGICAL: Mildly confused, nonfocal, generally weak, upper extremity tremor SKIN: Pressure ulcer noted on inner gluteal skin Objective Labs Result Diagrams: 06/13/18 05:00 06/13/18 05:00 Assessment & Plan Plan: Assessment/Plan Narrative: 1. Acute on chronic hypercapnic hypoxic respiratory failure: Patient intubated x2 days, extubated 06/09/2018, stable since then. On BiPAP in hospital while asleep with plans to discharge him on Trilogy. Patient previously noncompliant with trilogy but agrees to try again. He pretty much needs to use the assistive ventilatory device as much during the day and night as possible. 2. Acute on chronic diastolic heart failure. He is adequately diuresed. Resumed patient on home routine for O some might 40 mg by mouth daily. 3. Possible infiltrates on x-ray, pneumonia ruled out. Discontinued antibiotic. 4. Acute encephalopathy, related to respiratory failure: Resolving. 5. Chronic medical problems of CAD, hypothyroidism, tremor, BPH, neuropathy: Stable, back on routine meds. 6. Weakness: Continue PT and OT. 7. Unstageable pressure ulcer buttock: Continue local wound care Disposition: Patient getting close to discharge. He will need longterm rehab placement once we have him set up with the Trilogy ventilator.
[2018-06-14] MEDS: PANTOPRAZOLE 20 MG TABLET PO (20:29)
[2018-06-14] MEDS: ATORVASTATIN 20 MG TABLET 40 MG PO (20:30)
[2018-06-15] VITALS (12 sets, daily range): BP systolic 100–132; BP diastolic 58–74; PULSE 71–95; RESP 12–30; TEMP 36.2–36.6; O2SAT 88–98
[2018-06-15] MEDS: LEVOTHYROXINE 150 MCG TABLET 300 MCG PO (05:50)
[2018-06-15] MEDS: BECLOMETHASONE 40 MCG INH 10.6 GM 2 PUFF INH ×3 (06:24→18:08)
[2018-06-15] MEDS: GABAPENTIN 300 MG CAPSULE 900 MG PO ×3 (08:25→21:24)
[2018-06-15] MEDS: DOXAZOSIN 4 MG TABLET 8 MG PO (08:25)
[2018-06-15] MEDS: SODIUM CHLORIDE 0.9% FLUSH 10 ML IV (08:25)
[2018-06-15] MEDS: DOCUSATE 100 MG CAPSULE PO ×2 (08:25→21:24)
[2018-06-15] MEDS: PROPRANOLOL 40 MG TABLET 60 MG PO ×3 (08:26→21:24)
[2018-06-15] MEDS: FUROSEMIDE 40 MG TABLET PO (08:26)
[2018-06-15] MEDS: HEPARIN 5,000 UNIT/ML VIAL 5000 UNIT SUBCUT ×2 (08:26→21:24)
[2018-06-15] MEDS: ASPIRIN EC 81 MG TABLET PO (08:26)
[2018-06-15] MEDS: FLUCONAZOLE 100 MG TABLET PO (08:27)
--- NOTE | 2018-06-15 09:03 | PC.NURSE ---
Addendum entered by Kaylee Nobles R.N. 06/15/18 15:06: Tain removed at 0800, pt bladder scanned at 1300 for 550cc. Pt also given suppository. Pt up to BSC with sit to stand, had small formed BM. No void, had small amount of urine in brief. Pt back to bed and bladder scanned again for 450cc. MD aware and order to place tian. Original Note: Pt alert,oriented, p to chair with sit to stand, pt continues to have no strength in lower extremities. Pt able to feed himself this morning. Denies pain, sats 94% on 2L.
--- NOTE | 2018-06-15 12:00 | PT.IPTN ---
Current Diagnoses Sepsis, unspecified organism (06/07/18) Hypermagnesemia (06/07/18) Hyperosmolality and hypernatremia (06/07/18) Alkalosis (06/07/18) Metabolic encephalopathy (06/07/18) Essential (primary) hypertension (06/07/18) Heart failure, unspecified (06/07/18) Chronic obstructive pulmonary disease, unspecified (06/07/18) Chronic pulmonary edema (06/07/18) Acute respiratory failure with hypercapnia (06/07/18) Acute and chronic respiratory failure with hypoxia (06/07/18) Chronic kidney disease, stage 3 (moderate) (06/07/18) Physical Therapy Treatment Note M2 PT-IP Current Condition Start: 06/10/18 10:26 Freq: NEEDED Status: Active Protocol: Document 06/10/18 10:27 [facility] (Rec: 06/10/18 11:22 [facility] [id number]) Physical Therapy Current Condition Current Condition Evaluation Date 06/10/18 Treatment Diagnosis SOB, weakness M3 PT-IP Subjective Start: 06/10/18 10:26 Freq: NEEDED Status: Active Protocol: Document 06/15/18 10:55 [facility] (Rec: 06/15/18 12:00 [facility] [id number]) Subjective Physical Therapy Visit Type Type Treatment Note Visit Start Time 10:55 Visit Stop Time 11:37 Total Visit Minutes 42 Notes Co-treated with OT Kelly Number of SENIOR TELECOMMUNICATIONS CONSULTANT Visits 3 Physical Therapy Visit Comments Patient Comments Pt willing do seated ther ex and attempt sit<>stand. M4 PT-IP Mobility and Gait Start: 06/10/18 10:26 Freq: NEEDED Status: Active Protocol: Document 06/15/18 10:55 [facility] (Rec: 06/15/18 12:00 [facility] [id number]) PT-Bed Mobility Assessment Sit to Supine Sit to Supine Maximum Assistance 2 Person Assistance Bedrails Scooting Scooting Up and Down in Bed Maximum Assistance PT-Transfer Assessment Sit to and From Stand Sit to and from Stand Maximum Assistance 2 Person Assistance Use of Upper Extremities Equipment Transfer Assistive Device Mechanical Lift Orthotic/Prosthetic Devices or Brace: No Transfers Transfer Destination Bed Transfer Ability Level of Assist Total Assistance 2 Person Assistance Comments Mobility Comments Pt able to pull trunk forward in chair to upright sitting position x5 with cues. Pt stood Max A x2 with chair up against counter and walker between chair and side of bed for added stability. Pt stood with cues to stand tall and look at clock. Pt stood 15 seconds first attempt with Mod A for controlled decent. Pt then stood 35 seconds on second attempt and 15 seconds on third attempt. Pt was then transferred to bed with power stander. Pt needed Max A sit- supine and adjusting pt in bed . Gait Assessment Comments Gait Comments unable at this time. M5 PT-IP Objective Assessments Start: 06/10/18 10:26 Freq: NEEDED Status: Active Protocol: Document 06/10/18 10:27 [facility] (Rec: 06/10/18 11:22 [facility] [id number]) Gross Range of Motion Upper Extremity ROM Assessment Bilaterally Impaired Impairments difficulty reaching LUE across body for rolling d/t pain Lower Extremity ROM Assessment Bilaterally Impaired Impairments pain limits range: difficulty bending knees d/t pain Strength Upper Extremity Strength Assessment Bilaterally Impaired Lower Extremity Strength Assessment Bilaterally Impaired M6 PT-IP Treatment Start: 06/10/18 10:26 Freq: NEEDED Status: Active Protocol: Document 06/15/18 10:55 [facility] (Rec: 06/15/18 12:00 [facility] [id number]) Physical Therapy Treatment Exercises Exercises Seated Knee Flexion/Extension M7 PT-IP Assessment and Plan Start: 06/10/18 10:26 Freq: NEEDED Status: Active Protocol: Document 06/15/18 10:55 [facility] (Rec: 06/15/18 12:00 [facility] [id number]) PT Summary Assessment and Plan Summary Assessment Summary Pt was alert and able to follow directions as well as demonstrate sequencing for sitting forward, scooting forward in chair and with proper hand and foot placement for sit-stand w/FWW x3 with Max A x2. Goals Bed Mobility Goal Minimal Assistance Transfer Goal Minimal Assistance Gait Goal Minimal Assistance Gait Distance 25 Other Goals up/down stairs Frequency of Treatment Frequency Of Treatment Twice a Day Recommendations To Nursing Amount of Assist Needed Mechanical Lift Discharge Recommendations PT Discharge Recommendations SNF Rehab
[2018-06-15] MEDS: BISACODYL 10 MG SUPP PR (13:21)
--- NOTE | 2018-06-15 13:22 | OT.IP.TRT ---
Current Diagnoses Sepsis, unspecified organism (06/07/18) Hypermagnesemia (06/07/18) Hyperosmolality and hypernatremia (06/07/18) Alkalosis (06/07/18) Metabolic encephalopathy (06/07/18) Essential (primary) hypertension (06/07/18) Heart failure, unspecified (06/07/18) Chronic obstructive pulmonary disease, unspecified (06/07/18) Chronic pulmonary edema (06/07/18) Acute respiratory failure with hypercapnia (06/07/18) Acute and chronic respiratory failure with hypoxia (06/07/18) Chronic kidney disease, stage 3 (moderate) (06/07/18) Occupational Therapy Treatment Note M2 OT-IP Current Condition Start: 06/10/18 12:55 Freq: Status: Active Protocol: Document 06/11/18 15:56 [facility] (Rec: 06/11/18 16:12 [facility] [id number]) Occupational Therapy Current Condition Current Condition Evaluation Date 06/11/18 Treatment Diagnosis Altered mental status, acute respiratory failure Diagnosis Onset Date 06/07/18 M3 OT- IP Subjective and Pain Start: 06/10/18 12:55 Freq: Status: Active Protocol: Document 06/15/18 13:12 [facility] (Rec: 06/15/18 13:22 [facility] [id number]) OT- Subjective Occupational Therapy Visit Type Type Treatment Note Visit Start Time 10:55 Visit Stop Time 11:37 Total Visit Minutes 42 Occupational Therapy Visit Comments Patient Comments Pt will to try to stand up. OT Pain Assessment Pain When Pain Assessed At Rest Pain Present Pain Present Denied Pain M6 OT- IP Functional Cognition Start: 06/10/18 12:55 Freq: Status: Active Protocol: Document 06/14/18 08:56 [facility] (Rec: 06/14/18 09:07 [facility] [id number]) Cognitive Factors Limiting Selfcare Function Cognitive Ability Level of Alertness Alert Cognitive Comments Pt responding to name, following directions and able to state his needs today. Cognitive Assessment Comments M7 OT- IP Mobility and Balance Start: 06/10/18 12:55 Freq: Status: Active Protocol: Document 06/15/18 13:12 [facility] (Rec: 06/15/18 13:22 [facility] [id number]) OT- Bed Mobility Assessment Sit to Supine Sit to Supine Assist Maximum Assistance 2 Person Assistance OT-Transfer Assessment Sit to and From Stand Sit to and from Stand Maximum Assistance 2 Person Assistance Transfers Transfer Ability Total Assistance Technique Transfer Technique Mechanical Lift Comments Mobility Comments Cotxt with SUPERVISOR SCREEN PRINTING. Pt working on trunk control to activate trunk into anterior tilt, initially pulling with his hands on the recliner and at the end of 5 reps able to use his core muscle to assist to come forwards. Pt able to scoot forwards in the recliner via pushing up on the armrest and sliding his bottom forwards. Sit to stand MAX A X 2 with recliner backed to the counter and hospital bed in front to block the bariatric FWW. Pt able to stand for 15, 35, and then 15 secs. Pt needing assist to descend back down to the recliner. Pt able to do shoulder flexion 2 x 10 reps. OT- Balance Assessment Sitting Balance and Reactions Static Sitting Balance Ability Good Dynamic Sitting Balance Ability Fair Standing Balance and Reactions Static Standing Balance Ability Poor M8 OT- IP Objective Assessments Start: 06/10/18 12:55 Freq: Status: Active Protocol: Document 06/12/18 12:12 [facility] (Rec: 06/12/18 12:27 [facility] [id number]) OT Gross Range of Motion Upper Extremity Range of Motion Assessment Bilaterally Impaired ROM Impairments Today able to raise right hand up to his forehead. Left UE minimal movement to lift his arm up when trying to get the pillow underneath. M9 OT- IP Assessment and Plan Start: 06/10/18 12:55 Freq: Status: Active Protocol: Document 06/15/18 13:12 [facility] (Rec: 06/15/18 13:22 [facility] [id number]) OT Summary Assessment and Plan Potential Rehabilitation Potential Fair Analytic Complexity at Evaluation Moderate Summary OT Impairments Pain Range of Motion Strength Balance Coordination Sensation Functional Cognition Functional Mobility Self-Feeding Grooming Dressing Toileting Bathing Toilet Transfers Shower Transfers Progress Towards Goals Slow Progress due to Pain Slow Progress due to Medical Issues Slow Progress due to Activity Tolerance Slow Progress due to Cognition Assessment Summary Per nursing pt able to feel himself and OT/SUPERVISOR SCREEN PRINTING able to stand pt , therefore pt making steady progress however still not able to transfer yet. Pt will benefit from skilled rehab prior to going home. Goals Self-Feeding Goal Independent Grooming Goal Standby Assistance Dressing Goal Moderate Assistance Toileting Goal Moderate Assistance Toilet Transfer Goal Moderate Assistance Patient/Caregiver Education Goal Caregiver Independent Assisting Patient Days to Meet Goals 7 Frequency of Treatment Frequency Of Treatment Once a Day Treatment Plan OT Treatment Plan ADL Training Functional Cognition Training Functional Mobility Patient/Family Education Discharge Planning Other Treatment Recommendations and Next Able to stand with FWW for 1 Treatment Focus minute in preparation for standing to do grooming. Discharge Recommendations OT Discharge Recommendations SNF Rehab
--- NOTE | 2018-06-15 15:21 | PT.IPTN ---
Current Diagnoses Sepsis, unspecified organism (06/07/18) Hypermagnesemia (06/07/18) Hyperosmolality and hypernatremia (06/07/18) Alkalosis (06/07/18) Metabolic encephalopathy (06/07/18) Essential (primary) hypertension (06/07/18) Heart failure, unspecified (06/07/18) Chronic obstructive pulmonary disease, unspecified (06/07/18) Chronic pulmonary edema (06/07/18) Acute respiratory failure with hypercapnia (06/07/18) Acute and chronic respiratory failure with hypoxia (06/07/18) Chronic kidney disease, stage 3 (moderate) (06/07/18) Physical Therapy Treatment Note M2 PT-IP Current Condition Start: 06/10/18 10:26 Freq: NEEDED Status: Active Protocol: Document 06/10/18 10:27 [facility] (Rec: 06/10/18 11:22 [facility] [id number]) Physical Therapy Current Condition Current Condition Evaluation Date 06/10/18 Treatment Diagnosis SOB, weakness M3 PT-IP Subjective Start: 06/10/18 10:26 Freq: NEEDED Status: Active Protocol: Document 06/15/18 15:19 [facility] (Rec: 06/15/18 15:21 [facility] [id number]) Subjective Physical Therapy Visit Type Type Patient Refusal Notes Pt had just returned to be and had catheter put in and wanted to rest. Will check on pt in AM. M4 PT-IP Mobility and Gait Start: 06/10/18 10:26 Freq: NEEDED Status: Active Protocol: Document 06/15/18 10:55 [facility] (Rec: 06/15/18 12:00 [facility] [id number]) PT-Bed Mobility Assessment Sit to Supine Sit to Supine Maximum Assistance 2 Person Assistance Bedrails Scooting Scooting Up and Down in Bed Maximum Assistance PT-Transfer Assessment Sit to and From Stand Sit to and from Stand Maximum Assistance 2 Person Assistance Use of Upper Extremities Equipment Transfer Assistive Device Mechanical Lift Orthotic/Prosthetic Devices or Brace: No Transfers Transfer Destination Bed Transfer Ability Level of Assist Total Assistance 2 Person Assistance Comments Mobility Comments Pt able to pull trunk forward in chair to upright sitting position x5 with cues. Pt stood Max A x2 with chair up against counter and walker between chair and side of bed for added stability. Pt stood with cues to stand tall and look at clock. Pt stood 15 seconds first attempt with Mod A for controlled decent. Pt then stood 35 seconds on second attempt and 15 seconds on third attempt. Pt was then transferred to bed with power stander. Pt needed Max A sit- supine and adjusting pt in bed . Gait Assessment Comments Gait Comments unable at this time. M5 PT-IP Objective Assessments Start: 06/10/18 10:26 Freq: NEEDED Status: Active Protocol: Document 06/10/18 10:27 [facility] (Rec: 06/10/18 11:22 [facility] [id number]) Gross Range of Motion Upper Extremity ROM Assessment Bilaterally Impaired Impairments difficulty reaching LUE across body for rolling d/t pain Lower Extremity ROM Assessment Bilaterally Impaired Impairments pain limits range: difficulty bending knees d/t pain Strength Upper Extremity Strength Assessment Bilaterally Impaired Lower Extremity Strength Assessment Bilaterally Impaired M6 PT-IP Treatment Start: 06/10/18 10:26 Freq: NEEDED Status: Active Protocol: Document 06/15/18 10:55 [facility] (Rec: 06/15/18 12:00 [facility] [id number]) Physical Therapy Treatment Exercises Exercises Seated Knee Flexion/Extension M7 PT-IP Assessment and Plan Start: 06/10/18 10:26 Freq: NEEDED Status: Active Protocol: Document 06/15/18 10:55 [facility] (Rec: 06/15/18 12:00 [facility] [id number]) PT Summary Assessment and Plan Summary Assessment Summary Pt was alert and able to follow directions as well as demonstrate sequencing for sitting forward, scooting forward in chair and with proper hand and foot placement for sit-stand w/FWW x3 with Max A x2. Goals Bed Mobility Goal Minimal Assistance Transfer Goal Minimal Assistance Gait Goal Minimal Assistance Gait Distance 25 Other Goals up/down stairs Frequency of Treatment Frequency Of Treatment Twice a Day Recommendations To Nursing Amount of Assist Needed Mechanical Lift Discharge Recommendations PT Discharge Recommendations SNF Rehab
--- NOTE | 2018-06-15 18:45 | PM.PN.1 ---
Subjective Date Patient Seen: 06/15/18 Interval history: Patient appears considerably more alert, more oriented and improved affect today. Exam Vital Signs (past 8 hours): - 06/15/18 11:59 06/15/18 15:00 06/15/18 18:08 Temperature 97.5 F L 97.2 F L Pulse Rate 84 94 H 83 Respiratory Rate 21 20 20 Blood Pressure 121/73 116/65 Pulse Oximetry 94 93 94 Fraction of Inspired Oxygen 30 Oxygen Delivery Method Room Air Oxygen Flow Rate 2 Narrative Exam Narrative: GENERAL: Alert, comfortable HEENT: Oral thrush plaque on tongue CHEST: Clear to auscultation bilaterally CARDIAC: Regular rate and rhythm. ABDOMEN: Obese, nontender Extremities: Trace bilateral pretibial edema NEUROLOGICAL: Much better oriented, nonfocal, generally weak, upper extremity tremor SKIN: Pressure ulcer noted on inner gluteal skin Objective Labs Result Diagrams: 06/13/18 05:00 06/13/18 05:00 Assessment & Plan Plan: Assessment/Plan Narrative: 1. Acute on chronic hypercapnic hypoxic respiratory failure: Quite stable. Patient intubated x2 days, extubated 06/09/2018, stable since then. On BiPAP in hospital while asleep with plans to discharge him on Trilogy. Patient previously noncompliant with trilogy but agrees to try again. He pretty much needs to use the assistive ventilatory device as much during the day and night as possible. 2. Acute on chronic diastolic heart failure. He is adequately diuresed. Resumed patient on home routine basis 40 mg by mouth daily. 3. Possible infiltrates on x-ray, pneumonia ruled out. Discontinued antibiotic. 4. Acute encephalopathy, related to respiratory failure: Resolving. 5. Chronic medical problems of CAD, hypothyroidism, tremor, BPH, neuropathy: Stable, back on routine meds. 6. Weakness: Continue PT and OT. 7. Unstageable pressure ulcer buttock, present on admission: Continue local wound care. This was ulcer that had healed previously and then opened back up. 8. Acute kidney injury due to IV diuresis: Patient had significant bump in his creatinine from 1.3 on admit up to 1.9 peak on 06/13/2018. Recheck BMP ordered for a.m.. Disposition: Patient is close to ready to discharge. He will need [facility] placement once we have him set up with the Trilogy ventilator.
--- NOTE | 2018-06-15 19:48 | PC.NURSE ---
Addendum entered by Tianna Lema R.N. 06/15/18 21:56: 2145 - Pt set up for po meds. Removed Trilogy mask. Med given in carrier. Talking with pt about Trilogy mask. Pt states I wasn't wearing one. Reviewed new mask and machine with pt. Mask on, pt denies discomfort. Monitor. Original Note: 1944 - [employer] representitive arrived to set up pt trilogy.
[2018-06-15] MEDS: ATORVASTATIN 20 MG TABLET 40 MG PO (21:40)
[2018-06-15] MEDS: PANTOPRAZOLE 20 MG TABLET PO (21:41)
[2018-06-15] MEDS: LISINOPRIL 5 MG TABLET PO (21:41)
[2018-06-15] MEDS: ACETAMINOPHEN 325 MG TABLET 650 MG PO (21:42)
[2018-06-16] VITALS: BP 95/53; PULSE 76; RESP 23; TEMP 36.6; O2SAT 91
[2018-06-16 04:14] VITALS: BP 124/54; PULSE 82; RESP 14; TEMP 36.2; O2SAT 90
[2018-06-16] MEDS: BECLOMETHASONE 40 MCG INH 10.6 GM 2 PUFF INH (04:16)
[2018-06-16 04:17] VITALS: O2SAT 93
[2018-06-16 06:11] LABS: Blood Urea Nitrogen 36 mg/dL (9-20); Calcium 9.1 mg/dL (8.4-10.2); Carbon Dioxide 32 mmol/L (22-32); Chloride 103 mmol/L (98-107); Estimated Glomerular Filt Rate 59.3 mL/min (>60); Glucose 136 mg/dL (80-110); HEMOLYSIS < 15 (0-50); Potassium 3.8 mmol/L (3.4-5.1); Sodium 144 mmol/L (137-145)
[2018-06-16] MEDS: LEVOTHYROXINE 150 MCG TABLET 300 MCG PO (06:43)
[2018-06-16 07:47] VITALS: BP 120/57; PULSE 81; RESP 22; TEMP 37.3; O2SAT 91
[2018-06-16] MEDS: GABAPENTIN 300 MG CAPSULE 900 MG PO ×2 (08:07→14:35)
[2018-06-16] MEDS: FUROSEMIDE 40 MG TABLET PO (08:07)
[2018-06-16] MEDS: FLUCONAZOLE 100 MG TABLET PO (08:07)
[2018-06-16] MEDS: PROPRANOLOL 40 MG TABLET 60 MG PO ×2 (08:07→14:35)
[2018-06-16] MEDS: DOXAZOSIN 4 MG TABLET 8 MG PO (08:08)
[2018-06-16] MEDS: DOCUSATE 100 MG CAPSULE PO (08:08)
[2018-06-16] MEDS: ASPIRIN EC 81 MG TABLET PO (08:08)
[2018-06-16] MEDS: HEPARIN 5,000 UNIT/ML VIAL 5000 UNIT SUBCUT (08:08)
[2018-06-16] MEDS: LISINOPRIL 5 MG TABLET PO (08:08)
--- NOTE | 2018-06-16 08:09 | PT.IPTN ---
Current Diagnoses Sepsis, unspecified organism (06/07/18) Hypermagnesemia (06/07/18) Hyperosmolality and hypernatremia (06/07/18) Alkalosis (06/07/18) Metabolic encephalopathy (06/07/18) Essential (primary) hypertension (06/07/18) Heart failure, unspecified (06/07/18) Chronic obstructive pulmonary disease, unspecified (06/07/18) Chronic pulmonary edema (06/07/18) Acute respiratory failure with hypercapnia (06/07/18) Acute and chronic respiratory failure with hypoxia (06/07/18) Chronic kidney disease, stage 3 (moderate) (06/07/18) Physical Therapy Treatment Note M2 PT-IP Current Condition Start: 06/10/18 10:26 Freq: NEEDED Status: Active Protocol: Document 06/10/18 10:27 [facility] (Rec: 06/10/18 11:22 [facility] [id number]) Physical Therapy Current Condition Current Condition Evaluation Date 06/10/18 Treatment Diagnosis SOB, weakness M3 PT-IP Subjective Start: 06/10/18 10:26 Freq: NEEDED Status: Active Protocol: Document 06/16/18 08:06 [facility] (Rec: 06/16/18 08:09 [facility] [id number]) Subjective Physical Therapy Visit Type Type Treatment Note Visit Start Time 07:40 Visit Stop Time 08:00 Total Visit Minutes 20 Number of ULTRASOUND TECHNICIAN Visits 0 Physical Therapy Visit Comments Patient Comments Pt agrees to get up. Asks for PT to watch his R hand because it has been sore. Therapy Pain Assessment Pain When Pain Assessed At Rest Pain Present Pain Present Pain Reported M4 PT-IP Mobility and Gait Start: 06/10/18 10:26 Freq: NEEDED Status: Active Protocol: Document 06/16/18 08:06 [facility] (Rec: 06/16/18 08:09 [facility] [id number]) PT-Bed Mobility Assessment Supine to Sit Supine to Sit Moderate Assistance Head of Bed Elevated Bedrails Scooting Scooting to Edge of Bed Moderate Assistance PT-Transfer Assessment Sit to and From Stand Sit to and from Stand Moderate Assistance 2 Person Assistance Equipment Transfer Assistive Device Gait Belt Front Wheeled Walker Orthotic/Prosthetic Devices or Brace: No Transfers Transfer Destination Chair Transfer Technique Stand Step Pivot Transfer Ability Level of Assist Moderate Assistance 2 Person Assistance Comments Mobility Comments Pt did 1 sit to stand with mod A x2 to FWW & nurse put cream on buttocks then stood again for transfer mod A x2. During transfer, assist was required with FWW. M5 PT-IP Objective Assessments Start: 06/10/18 10:26 Freq: NEEDED Status: Active Protocol: Document 06/10/18 10:27 [facility] (Rec: 06/10/18 11:22 [facility] [id number]) Gross Range of Motion Upper Extremity ROM Assessment Bilaterally Impaired Impairments difficulty reaching LUE across body for rolling d/t pain Lower Extremity ROM Assessment Bilaterally Impaired Impairments pain limits range: difficulty bending knees d/t pain Strength Upper Extremity Strength Assessment Bilaterally Impaired Lower Extremity Strength Assessment Bilaterally Impaired M6 PT-IP Treatment Start: 06/10/18 10:26 Freq: NEEDED Status: Active Protocol: Document 06/15/18 10:55 [facility] (Rec: 06/15/18 12:00 [facility]B [id number]) Physical Therapy Treatment Exercises Exercises Seated Knee Flexion/Extension M7 PT-IP Assessment and Plan Start: 06/10/18 10:26 Freq: NEEDED Status: Active Protocol: Document 06/16/18 08:06 [facility] (Rec: 06/16/18 08:09 [facility] [id number]) PT Summary Assessment and Plan Summary Assessment Summary Pt demonstrated good improvement today and was able to transfer with mod Ax2. Goals Bed Mobility Goal Minimal Assistance Transfer Goal Minimal Assistance Gait Goal Minimal Assistance Gait Distance 25 Other Goals up/down stairs Days to Meet Goals 6 Frequency of Treatment Frequency Of Treatment Twice a Day Recommendations To Nursing Amount of Assist Needed Mechanical Lift Discharge Recommendations PT Discharge Recommendations SNF Rehab
[2018-06-16] MEDS: INFLUENZA VACCINE 0.5 ML SYRINGE IM (08:10)
--- NOTE | 2018-06-16 08:15 | PM.DS.1 ---
History of Present Illness Chief complaint: ALOC Narrative: 73-year-old male with past medical history of CHF, COPD on trilogy but non compliant with the machine, hypertension, CAD status post stenting, hypothyroidism, hyperlipidemia, anemia, diabetes presented to emergency department due to altered mental status. As per patient's , she has noted patient to become increasingly lethargic and unresponsive over the course of the week. She has noted patient to be with decreased p.o. intake, sleeping a lot more, getting out of bed most frequently over the past week. She has not noted patient to have any fevers or chills, with nausea/vomiting, complains of shortness of breath, complains of abdominal pain, complains of symptoms. Today patient has not been answering her questions, or fallowing much of her commands, so she called an ambulance for the patient. As per EMS, patient was found to be hypoxic and 50s, and was placed on BiPAP EN route to the hospital. In the emergency department, patient was initially found to be lethargic, but following minimal commands. He is afebrile, with stable blood pressure, and pulse of 56. He was saturating 96% on BiPAP. He was given .4x2 narcan with mild improvement in mentation. ABG performed, which showed 7.1/114/107. Lab work revealed WBCs of 10, hemoglobin 12.9, hematocrit 41.5, platelets 171. Sodium 143, potassium 4.8, chloride 95, carbon dioxide 38, BUN 40, creatinine 0.3, glucose 164. Lactate was 0.8. BNP was 289. Procalcitonin was 0.05. Chest x-ray performed, which showed left basilar consolidation suspicious for pneumonia versus atelectasis, and cardiomegaly with probable developing pulmonary edema (however it was difficult to evaluate patient's lungs on this x-ray due to body habitus and positioning). Patient was continued on BiPAP over the course of 1-2 hours. Nevertheless, his condition continued to deteriorate, and patient became unresponsive around 3:30 p.m. the decision was then made to intubate the patient and transfer to ICU for further care. He was given levofloxacin 750 mg IV, Lasix 40 mg IV, and CT chest was performed. Discharge Providers Date of admission: 06/07/18 16:02 Primary care physician: Otto Jarrell MD Consults: 06/07/18 19:01 Consult to Dietitian, Adult Routine Comment: sedated on vent at this time Reason For Exam: assessed at high risk 06/08/18 07:14 Consult to Dietitian, Adult Routine Comment: Reason For Exam: tube feeds 06/10/18 09:26 Consult to Speech Therapy Evaluate & Treat Comment: Physician Instructions: Evaluate and treat 06/10/18 09:27 Consult to Occupational Therapy Evaluate & Treat Comment: Physician Instructions: Evaluate and treat Consult to Physical Therapy Evaluate & Treat Comment: Physician Instructions: Evaluate and Treat Discharge provider: Nikhil Osman MD Discharge Date: 06/16/18 Summary Discharge Diagnosis: 1. Acute on chronic hypercapnic respiratory failure 2. Hypoventilation syndrome cause of respiratory failure 3. Chronic diastolic heart failure without exacerbation 4. Acute encephalopathy related to respiratory failure, resolved 5. Unstageable pressure ulcer buttock, present on admission 6. Acute kidney injury, pre renal due to IV diuresis, resolved 7. Chronic back and arthritis pain with opioid dependency 8. Oral thrush Hospital Course: 1. Acute on chronic hypercapnic hypoxic respiratory failure: Quite stable, doing well. Patient intubated x2 days, extubated 06/09/2018, stable since then. New Trilogy device was delivered to patient yesterday by via med with patient compliant with it over night and nursing staff notes he tolerated it well. Patient previously noncompliant with trilogy but agreed to try it again. He pretty much needs to use the assistive ventilatory device during the day and night whenever asleep or even drowsy. 2. Chronic diastolic heart failure. He is adequately diuresed. Resumed patient on home routine basis 40 mg by mouth daily. In retrospect, he did not have acute exacerbation as he went into renal failure with IV diuresis. 3. Possible infiltrates on x-ray, pneumonia ruled out. Discontinued antibiotic several days ago and patient without fever or other signs of pneumonia. 4. Acute encephalopathy, related to respiratory failure: Resolved. 5. Chronic medical problems of CAD, hypothyroidism, tremor, BPH, neuropathy: Stable, back on routine meds. 6. Weakness: Continue PT and OT. 7. Unstageable pressure ulcer buttock, present on admission: Continue local wound care. This was ulcer that had healed previously and then opened back up. 8. Acute kidney injury due to IV diuresis: Patient had significant bump in his creatinine from 1.3 on admit up to 1.9 peak on 06/13/2018. Current creatinine 1.2 on day of discharge. 9. Chronic back and arthritis pain with opioid dependency. Prior to admission patient was on routine 10 mg oxycodone in a.m. and 5 mg oxycodone every 3 hr while awake. During admission we have been giving him oxycodone as needed only in small amounts. I am sending him out on oxycodone 5 mg 3 times daily in addition to oxycodone as needed. Discussed with spouse that he will hopefully be more clear headed with reduction in opioid dosing. Patient does have history of very extensive spine surgeries due to incapacitating kyphosis/scoliosis. 10. Oral thrush. Improving. Patient completed 3 days oral Diflucan on 06/16/2018. Disposition: Patient is ready to discharge. He is going to [facility]. I will review hospital course and recommended plan of care with accepting provider. Status at Discharge Functional status at discharge: wheelchair bound Overall status at discharge: patient is not back to baseline Time Spent with Patient Greater than 30 minutes Exam Vital Signs (past 8 hours): - 06/16/18 04:14 06/16/18 04:17 06/16/18 07:47 Temperature 97.2 F L 99.1 F Pulse Rate 82 81 Respiratory Rate 14 22 Blood Pressure 124/54 L 120/57 L Pulse Oximetry 90 L 93 91 Fraction of Inspired Oxygen 30 Oxygen Delivery Method CPAP Oxygen Flow Rate 0 Narrative Exam Narrative: Alert, comfortable HEENT: Oral thrush plaque on tongue is definitely improving CHEST: Clear to auscultation bilaterally CARDIAC: Regular rate and rhythm. ABDOMEN: Obese, nontender Extremities: Trace bilateral pretibial edema NEUROLOGICAL: Much better oriented, nonfocal, generally weak, upper extremity tremor SKIN: Pressure ulcer noted on inner gluteal skin Objective Labs Result Diagrams: 06/13/18 05:00 06/16/18 04:49 Labs: Laboratory Results - last 24 hr 06/16/18 04:49 Sodium 144 Potassium 3.8 Chloride 103 Carbon Dioxide 32 BUN 36 H Creatinine 1.20 Estimated GFR 59.3 L BUN/Creatinine Ratio 30.0 H Glucose 136 H Calcium 9.1 Discharge Plan Discharge Plan Patient Disposition: SNF Transfer to: [facility] Consult as needed: Dental, Hearing, Mental health, Podiatry and Vision I certify the postop hospital usp care is medically necessary on a continuing basis for any conditions for which he/ she received care during this hospitalization.: Yes The receiving facility has agreed to accept transfer and provide medical treatment.: Yes Discharge Med Rec/Prescriptions Prescriptions: New oxycodone 5 mg tablet 5 mg PO TID Qty: 60 RF: 0 oxycodone 5 mg tablet 5 mg PO TID PRN (Reason: pain) Qty: 30 RF: 0 Continue albuterol sulfate [Ventolin HFA] 90 MCG/PUFF HFA aerosol inhaler 2 puff INH Q6HP PRN (Reason: Shortness Of Breath) Qty: 0 RF: 0 lisinopril 5 MG tablet 5 mg PO HS Qty: 0 RF: 0 polyethylene glycol 3350 [Miralax] 119 GM powder 17 gm PO QDAYP PRN (Reason: Constipation) Qty: 0 RF: 0 glimepiride 1 MG tablet 1 mg PO BIDCC Qty: 0 RF: 0 gabapentin [Neurontin] 300 MG capsule 600 mg PO BEDTIME Qty: 0 RF: 0 levothyroxine 100 MCG tablet 1 tab PO QAM Qty: 0 RF: 0 furosemide 40 mg tablet 40 mg PO DAILY RF: 0 atorvastatin 40 mg tablet 1 tab PO BEDTIME RF: 0 propranolol 60 mg tablet 1 tab PO TID RF: 0 pantoprazole 20 mg tablet,delayed release (DR/EC) 1 tab PO DAILY RF: 0 doxazosin 8 mg tablet 8 mg PO DAILY RF: 0 gabapentin 300 mg capsule 900 mg PO TID RF: 0 levothyroxine 200 mcg tablet 1 tab PO DAILY RF: 0 oxybutynin chloride 5 mg tablet 1 tab PO BID RF: 0 aspirin 81 mg Tablet,Delayed Release (Dr/Ec) 81 mg PO DAILY RF: 0 acetaminophen 500 mg Capsule 2 cap PO TID RF: 0 cyclobenzaprine 10 mg Tablet 1 tab PO TID PRN (Reason: Spasms) RF: 0 multivitamin Tablet 1 tab PO DAILY RF: 0 nitroglycerin 0.4 mg Tablet, Sublingual 0.4 mg SUBLINGUAL Q5-15M PRN (Reason: Chest Pain) RF: 0 docusate sodium 100 mg Capsule 100 mg PO DAILY PRN (Reason: stool softener) RF: 0 omega 8-[id number]-fqd-fish oil [Fish Oil] 1,000 mg (120 mg-180 mg) Capsule 1 cap PO DAILY RF: 0 cholecalciferol (vitamin D3) [Vitamin D3] 1,000 unit Capsule 1,000 unit PO DAILY RF: 0 beclomethasone dipropionate [Qvar RediHaler] 80 mcg/actuation Hfa Aerosol Breath Activated 2 puff Inhalation BID PRN (Reason: Shortness Of Breath) RF: 0 diazepam 5 MG tablet 5 mg PO HSP PRN (Reason: Anxiety) Qty: 10 RF: 0 Discontinued oxycodone 5 MG tablet 10 mg PO QDAY Qty: 0 RF: 0 oxycodone 5 MG tablet 5 mg PO Q3H Qty: 0 RF: 0 triamcinolone acetonide 0.1 % cream 1 applic Topical BID RF: 0 Follow up/Referrals: Otto Jarrell MD [Primary Care Provider] - Provider Discharge Instructions Diet: Regular Liquid consistency: Normal/Thin Food texture: Regular Catheter: 2-way Tian Catheter comment: remove tian in 3- 7 days [facility] Reason for rehabilitation: Recovery r/t decondition Rehab type: Physical therapy and Occupational therapy Discharge Data Primary Care Provider: Otto Jarrell V Attending Provider: Evette Garcia Admit Date/Time: 06/07/18 16:02
--- NOTE | 2018-06-16 09:58 | OT.IP.TRT ---
Current Diagnoses Sepsis, unspecified organism (06/07/18) Hypermagnesemia (06/07/18) Hyperosmolality and hypernatremia (06/07/18) Alkalosis (06/07/18) Metabolic encephalopathy (06/07/18) Essential (primary) hypertension (06/07/18) Heart failure, unspecified (06/07/18) Chronic obstructive pulmonary disease, unspecified (06/07/18) Chronic pulmonary edema (06/07/18) Acute respiratory failure with hypercapnia (06/07/18) Acute and chronic respiratory failure with hypoxia (06/07/18) Chronic kidney disease, stage 3 (moderate) (06/07/18) Occupational Therapy Treatment Note M2 OT-IP Current Condition Start: 06/10/18 12:55 Freq: Status: Active Protocol: Document 06/11/18 15:56 [facility] (Rec: 06/11/18 16:12 [facility] [id number]) Occupational Therapy Current Condition Current Condition Evaluation Date 06/11/18 Treatment Diagnosis Altered mental status, acute respiratory failure Diagnosis Onset Date 06/07/18 M3 OT- IP Subjective and Pain Start: 06/10/18 12:55 Freq: Status: Active Protocol: Document 06/16/18 09:51 [facility] (Rec: 06/16/18 09:58 [facility] [id number]) OT- Subjective Occupational Therapy Visit Type Type Treatment Note Visit Start Time 08:55 Visit Stop Time 09:45 Total Visit Minutes 50 Occupational Therapy Visit Comments Patient Comments Pt wanting to use the BSC. OT Pain Assessment Pain When Pain Assessed At Rest Pain Present Pain Present Denied Pain M4 OT- IP ADL's Start: 06/10/18 12:55 Freq: Status: Active Protocol: Document 06/16/18 09:51 [facility] (Rec: 06/16/18 09:58 [facility] [id number]) OT COO-Izrd-Gonjrye General Evaluation Self-Feeding Ability Minimal Assistance Areas Needing Assistance Cutting Food Opening Containers Comments OT Self-Feeding Comments Pt able to use foam on utensil to increase ease to eat versus weight large handled utensil on his tray. Pt needing assist to cut all food and for set up. OT ADL-Toileting General Evaluation Toileting Ability Total Assistance Areas Needing Assistance Empty Catheter or Colostomy Manage Clothing Perform Perineal Hygiene Comments OT Toileting Comments Pt has catheter. M6 OT- IP Functional Cognition Start: 06/10/18 12:55 Freq: Status: Active Protocol: Document 06/16/18 09:51 [facility] (Rec: 06/16/18 09:58 [facility] [id number]) Cognitive Factors Limiting Selfcare Function Cognitive Ability Level of Alertness Alert Patient Orientation Name Date Day of Week Place Situation Attention Span Ability Capable of Focused Attention Capable of Sustained Attention Ability to Follow Commands Able to Follow Multi-Step Commands Memory Description Immediate Intact Short Term Intact Cognitive Comments Cognitive Assessment Comments Pt alert and able to states his needs and follow multiple commands today. Pt realizes that his knees are not strong and not wantinig to use th mechanical lift versus standing. M7 OT- IP Mobility and Balance Start: 06/10/18 12:55 Freq: Status: Active Protocol: Document 06/16/18 09:51 [facility] (Rec: 06/16/18 09:58 [facility] [id number]) OT-Transfer Assessment Sit to and From Stand Sit to and from Stand Total Assistance Transfers Transfer Ability Total Assistance Technique Transfer Technique Mechanical Lift Comments Mobility Comments Use of mechanical lift to BSC, pt able to state sequence of strap to be place for the lift . OT- Balance Assessment Sitting Balance and Reactions Static Sitting Balance Ability Good Dynamic Sitting Balance Ability Fair Standing Balance and Reactions Static Standing Balance Ability Poor M8 OT- IP Objective Assessments Start: 06/10/18 12:55 Freq: Status: Active Protocol: Document 06/12/18 12:12 [facility] (Rec: 06/12/18 12:27 [facility] [id number]) OT Gross Range of Motion Upper Extremity Range of Motion Assessment Bilaterally Impaired ROM Impairments Today able to raise right hand up to his forehead. Left UE increased movement from elbow to distal. Pt's 2nd and 3rd digits increased swelling and not able to close his hand today due to pain and swelling. Nursing states physician did look at his hand today. M9 OT- IP Assessment and Plan Start: 06/10/18 12:55 Freq: Status: Active Protocol: Document 06/16/18 09:51 [facility] (Rec: 06/16/18 09:58 [facility] [id number]) OT Summary Assessment and Plan Potential Rehabilitation Potential Good Analytic Complexity at Evaluation Moderate Summary OT Impairments Pain Range of Motion Strength Balance Coordination Functional Mobility Self-Feeding Grooming Dressing Toileting Bathing Toilet Transfers Progress Towards Goals Slow Progress due to Pain Slow Progress due to Medical Issues Slow Progress due to Activity Tolerance Assessment Summary Pt more alert and able to follow commands consistently and understands and willing to go to skilled rehab to get back to prior level of care which was MOD I with all needs . Goals Days to Meet Goals 1 Frequency of Treatment Frequency Of Treatment Once a Day Treatment Plan OT Treatment Plan ADL Training Functional Cognition Training Functional Mobility Patient/Family Education Discharge Planning Discharge Recommendations OT Discharge Recommendations SNF Rehab
--- NOTE | 2018-06-16 11:31 | PC.NURSE ---
Called report to admission nurse at [facility]. Plan for pt to transfer to [facility] around 1400.
[2018-06-16 14:35] VITALS: BP 115/78; RESP 18; O2SAT 92
--- NOTE | 2018-06-16 15:28 | CM.DPC ---
DCP Cont: Originally, patient was supposed to be picked up by [facility]. Had confirmed this with Denisse, at [facility]. Patient was to be picked up at 2:15, at 3:00, had called [facility], since they had not yet showed up. [facility] was under the understanding that patient would need BLS transport. Did let her know that patient could sit in a wheel-chair, but her concern is that he is a hoier/sit to stand. Went ahead and called BLS transport. Patient is to be picked up at approximately 4:30. Called , Kathy, and gave her update. Paper filled out for BLS, and ICU nurse updated. P: Patient to be picked up today by BLS transport and go to [facility]. Stacey Davis RN/Chemical Economist
--- NOTE | 2018-06-16 16:34 | PC.NURSE ---
Pt discharged to [facility] via BLS transport. [employer] rep arrived to transport [employer] machine.
[2018-06-18 15:12] LABS: PCO2 ABG 61.3 mmHg (35-45)
[2018-06-18 15:13] LABS: Fractionated Inspired Oxygen 0.26
== END 2018-06-16 16:35 | DRG 208 ==
LOC: ED 15:40 → AC 16:02 → ICU 17:41
PROVIDERS: Family Medicine; Internal Medicine; Nurse Practitioner Gerontology; Admitting Provider Internal Medicine; Emergency Provider Emergency Medicine; Family Provider Internal Medicine; PCP Internal Medicine; Visit Provider Internal Medicine
DX: J96.22 Acute and chronic respiratory failure with hypercapnia (principal); R40.2343 Coma scale, best motor response, flexion withdrawal, at hospital admission; R40.2113 Coma scale, eyes open, never, at hospital admission; R40.2213 Coma scale, best verbal response, none, at hospital admission; J44.1 Chronic obstructive pulmonary disease with (acute) exacerbation; E87.3 Alkalosis; I13.0 Hypertensive heart and chronic kidney disease with heart failure and stage 1 through stage 4 chronic kidney disease, or unspecified chronic kidney disease; E87.0 Hyperosmolality and hypernatremia; N17.9 Acute kidney failure, unspecified; I50.32 Chronic diastolic (congestive) heart failure; G93.49 Other encephalopathy; B37.0 Candidal stomatitis; Z99.81 Dependence on supplemental oxygen; N18.3 Chronic kidney disease, stage 3 (moderate); L89.300 Pressure ulcer of unspecified buttock, unstageable; R06.89 Other abnormalities of breathing; R33.9 Retention of urine, unspecified
CPT/HCPCS: 31500; 36415; 36600; 71045; 71250; 80048; 80053; 80320; 81003; 82805; 82962; 83605; 83690; 83735; 83880; 84145; 84443; 84484; 85025; 87040; 87150; 87205; 87797; 90471; 90656; 92526; 92610; 93005; 93010; 93306; 94002; 94003; 94640; 94660; 94760; 94770; 94799; 96361; 96365; 96366; 96368; 96375; 97110; 97163; 97166; 97530; 97535; 99283; 99285; C9113; J0330; J1160; J1642; J1644; J1940; J1956; J2060; J2270; J2310; J2704; Q2038; Q9957

== ENCOUNTER → 2018-06-21 08:18 | Outpatient (REF) | payer MEDICARE, SELFPAY ==
[2018-06-07 18:53] VITALS: BMI 43.3
[2018-06-15 04:12] VITALS: PULSE 75; RESP 30; O2SAT 96
[2018-06-21 09:20] LABS: BUN Creatinine Ratio 18.6 (6-22); Blood Urea Nitrogen 13 mg/dL (9-20); Calcium 9.3 mg/dL (8.4-10.2); Carbon Dioxide 39 mmol/L (22-32); Chloride 99 mmol/L (98-107); Estimated Glomerular Filt Rate > 60.0 mL/min (>60); Glucose 131 mg/dL (80-110); HEMOLYSIS < 15 (0-50); Potassium 4.1 mmol/L (3.4-5.1); Sodium 144 mmol/L (137-145)
== END ==
LOC: LAB 08:18
PROVIDERS: Family Provider Internal Medicine; PCP Internal Medicine; Visit Provider Hospitalist
DX: I50.9 Heart failure, unspecified (principal); J44.9 Chronic obstructive pulmonary disease, unspecified
CPT/HCPCS: 36415; 80048

== ENCOUNTER → 2018-06-28 07:31 | Outpatient (REF) | payer MEDICARE, SELFPAY ==
[2018-06-07 18:53] VITALS: BMI 43.3
[2018-06-15 04:12] VITALS: PULSE 75; RESP 30; O2SAT 96
[2018-06-28 07:53] LABS: Add Manual Diff / Slide Review NO; Basophils Percent Auto 0.8 % (0-2); Eosinophils Percent Auto 2.9 % (2-4); Hematocrit 41.8 % (41-53); Hemoglobin 13.3 g/dL (13.5-17.5); Lymphocytes Percent Auto 22.6 % (25-40); Mean Corpuscular HGB Conc 31.8 % (30-36); Mean Corpuscular Hemoglobin 28.4 PG (26-34); Mean Corpuscular Volume 89.3 fL (80-100); Monocytes Percent Auto 9.3 % (3-14); Neutrophils Absolute Auto 5300 /uL (3000-5900); Neutrophils Percent Auto 64.4 % (50-75); Platelet Count 245 X10^3/uL (150-400); Red Blood Cell Count 4.68 X10^6/uL (4.5-5.9); Red Cell Distribution Width 17.1 % (11.6-14.8); White Blood Cell Count 8.2 X10^3/uL (4.5-11.0)
[2018-06-28 08:10] LABS: Blood Urea Nitrogen 16 mg/dL (9-20); Carbon Dioxide 37 mmol/L (22-32); Chloride 97 mmol/L (98-107); Estimated Glomerular Filt Rate > 60.0 mL/min (>60); Glucose 142 mg/dL (80-110); HEMOLYSIS < 15 (0-50); Potassium 4.4 mmol/L (3.4-5.1); Sodium 142 mmol/L (137-145); Uric Acid 6.4 mg/dL (3.5-8.5)
== END ==
LOC: LAB 07:31
PROVIDERS: Family Provider Internal Medicine; PCP Internal Medicine; Visit Provider Hospitalist
DX: I10 Essential (primary) hypertension (principal)
CPT/HCPCS: 36415; 80048; 84550; 85025

== ENCOUNTER → 2018-07-02 08:01 | Outpatient (REF) | payer MEDICARE, SELFPAY ==
[2018-06-07 18:53] VITALS: BMI 43.3
[2018-06-15 04:12] VITALS: PULSE 75; RESP 30; O2SAT 96
[2018-07-02 09:03] LABS: Add Manual Diff / Slide Review NO; Basophils Percent Auto 0.7 % (0-2); Eosinophils Percent Auto 3.3 % (2-4); Hematocrit 39.5 % (41-53); Hemoglobin 12.9 g/dL (13.5-17.5); Mean Corpuscular HGB Conc 32.6 % (30-36); Mean Corpuscular Hemoglobin 28.9 PG (26-34); Mean Corpuscular Volume 88.6 fL (80-100); Monocytes Percent Auto 11.3 % (3-14); Neutrophils Absolute Auto 3500 /uL (3000-5900); Neutrophils Percent Auto 56.7 % (50-75); Platelet Count 166 X10^3/uL (150-400); Red Blood Cell Count 4.46 X10^6/uL (4.5-5.9); Red Cell Distribution Width 17.2 % (11.6-14.8); White Blood Cell Count 6.2 X10^3/uL (4.5-11.0)
[2018-07-02 09:08] LABS: BUN Creatinine Ratio 22.2 (6-22); Blood Urea Nitrogen 20 mg/dL (9-20); Calcium 8.9 mg/dL (8.4-10.2); Carbon Dioxide 37 mmol/L (22-32); Chloride 97 mmol/L (98-107); Estimated Glomerular Filt Rate > 60.0 mL/min (>60); Glucose 107 mg/dL (80-110); HEMOLYSIS 25 (0-50); Potassium 4.4 mmol/L (3.4-5.1); Sodium 141 mmol/L (137-145)
== END ==
LOC: LAB 08:01
PROVIDERS: Family Provider Internal Medicine; PCP Internal Medicine; Visit Provider Hospitalist
DX: I50.9 Heart failure, unspecified (principal)
CPT/HCPCS: 36415; 80048; 85025

== ENCOUNTER → 2018-07-07 08:56 | Outpatient (REF) | payer MEDICARE, SELFPAY ==
[2018-06-07 18:53] VITALS: BMI 43.3
[2018-06-15 04:12] VITALS: PULSE 75; RESP 30; O2SAT 96
[2018-07-07 11:37] LABS: HEMOLYSIS < 15 (0-50); Iron 88 ug/dL (49-181)
[2018-07-07 11:47] LABS: Percent Iron Saturation 33 % (20-50); Total Iron Binding Capacity 268 ug/dL (261-462); Transferrin 208 mg/dL (206-381)
[2018-07-07 12:07] LABS: Ferritin 89.2 ng/mL (17.9-464)
== END ==
LOC: LAB 08:56
PROVIDERS: Family Provider Internal Medicine; PCP Internal Medicine; Visit Provider Hospitalist
DX: I50.9 Heart failure, unspecified (principal); J44.9 Chronic obstructive pulmonary disease, unspecified
CPT/HCPCS: 36415; 82728; 83540; 83550

== ENCOUNTER → 2018-07-12 08:00 | Outpatient (REF) | payer MEDICARE, SELFPAY ==
[2018-06-07 18:53] VITALS: BMI 43.3
[2018-06-15 04:12] VITALS: PULSE 75; RESP 30; O2SAT 96
== END ==
LOC: LAB 08:00
PROVIDERS: Family Provider Internal Medicine; PCP Internal Medicine; Visit Provider Nurse Practitioner Family
DX: M10.9 Gout, unspecified (principal)
CPT/HCPCS: 36415; 84550

== ENCOUNTER 2018-07-20 11:33 | Inpatient (IN) | payer MEDICARE, SELFPAY ==
[2018-06-07 18:53] VITALS: BMI 43.3
[2018-06-15 04:12] VITALS: PULSE 75; RESP 30; O2SAT 96
[2018-07-20] VITALS (12 sets, daily range): BP systolic 101–129; BP diastolic 46–72; PULSE 53–111; RESP 16–24; TEMP 36.7–37.3; O2SAT 84–96; BMI 41.0; BMI 39.9
--- NOTE | 2018-07-20 11:47 | ED.WEAKNESS ---
HPI - Weakness General Chief complaint: Weakness Stated complaint: Increased weakness, fever Time Seen by Provider: 07/20/18 11:41 Source: patient and EMS Mode of arrival: EMS History of Present Illness HPI Narrative: This is a 73-year-old male who comes to the emergency department for complaint of weakness and trouble breathing. Patient is a poor historian but per EMS he was found standing, family was holding him up because they were afraid that they could get him to a chair safely. He had not actually had a fall. EMS assisted him. They noted that his oxygenation was 78% on room air. He is supposed to be on nasal cannula at all times. Patient was placed on nasal cannula 4 L came up to 96% for EMS patient denies any recent fevers. He states he is short of breath. He states he feels a little bit worse than when he left rehab recently. Patient is denying any chest pain. He is denying any nausea or vomiting. He states that he does use inhalers, he wall falls on whether they are helpful or not helpful. He had a recent sepsis was on a ventilator for prostatitis Related Data Home Medications Medication Instructions Recorded Confirmed albuterol sulfate [Ventolin HFA] 2 puff INH Q6HP PRN #0 puff 05/20/13 07/20/18 lisinopril 5 mg PO BEDTIME #0 tab 05/20/13 07/20/18 polyethylene glycol 3350 [Miralax] 17 gm PO QDAYP PRN #0 05/20/13 07/20/18 gabapentin [Neurontin] 600 mg PO BEDTIME #0 09/05/17 07/20/18 glimepiride 1 mg PO BIDCC #0 09/05/17 07/20/18 acetaminophen 2 cap PO TID 06/07/18 07/20/18 aspirin 81 mg PO 0630 06/07/18 07/20/18 atorvastatin 1 tab PO BEDTIME 06/07/18 07/20/18 beclomethasone dipropionate [Qvar 2 puff INHALATION BID PRN 06/07/18 07/20/18 RediHaler] cholecalciferol (vitamin D3) 1,000 unit PO DAILY 06/07/18 07/20/18 [Vitamin D3] docusate sodium 100 mg PO DAILY PRN 06/07/18 07/20/18 doxazosin 8 mg PO 0630 06/07/18 07/20/18 furosemide 40 mg PO 0630 06/07/18 07/20/18 gabapentin 900 mg PO TID 06/07/18 07/20/18 multivitamin 1 tab PO DAILY 06/07/18 07/20/18 nitroglycerin 0.4 mg SUBLINGUAL Q5-15M PRN 06/07/18 07/20/18 omega [id number] oil [Fish Oil] 1 cap PO DAILY 06/07/18 07/20/18 oxybutynin chloride 1 tab PO BID 06/07/18 07/20/18 pantoprazole 20 mg PO QNOON 06/07/18 07/20/18 propranolol 1 tab PO TID 06/07/18 07/20/18 allopurinol 100 mg PO DAILYX7 07/20/18 07/20/18 levothyroxine 100 mcg PO DAILY 07/20/18 07/20/18 levothyroxine 200 mcg PO DAILY 07/20/18 07/20/18 oxycodone 10 mg PO PRN PRN 07/20/18 07/20/18 Allergies Allergy/AdvReac Type Severity Reaction Status Date / Time fentanyl [FENTANYL] Allergy Severe HIVES, Verified 06/07/18 14:48 ITCHING iodine [IODINE] Allergy Severe RASH - Verified 06/07/18 14:48 TOPICAL AND IV CONTRAST shellfish derived Allergy Severe Abdominal Verified 06/07/18 14:48 [SHELLFISH DERIVED] Pain cyclobenzaprine Allergy Intermediate ITCHING Verified 06/07/18 14:48 [CYCLOBENZAPRINE] diclofenac [DICLOFENAC] Allergy Intermediate ITCHING Verified 06/07/18 14:48 methadone [METHADONE] Allergy Intermediate ITCHING Verified 06/07/18 14:48 hydromorphone [HYDROMORPHONE] Allergy Mild ITCHING Verified 06/07/18 14:48 hydroxyzine [HYDROXYZINE] Allergy Mild FEVER, Verified 06/07/18 14:48 SWEATS ibuprofen [IBUPROFEN] Allergy Unknown Verified 06/07/18 14:48 aspirin [ASPIRIN] AdvReac Severe STOMACH Verified 06/07/18 14:48 PAIN & HIVE W/325MG, CAN TAKE 81 MG solifenacin [From [facility]] AdvReac Unknown INCREASE Verified 06/07/18 21:43 PVR AND URINARY SX RACHEL AdvReac Unknown DOES NOT Uncoded 11/25/17 12:09 WORK Review of Systems Review of Systems All systems reviewed & are unremarkable except as noted in HPI and below Constitutional Denies fever(s) and Reports weakness Cardiovascular Denies chest pain, Denies irregular heart rhythm, Denies lightheadedness, Denies palpitations, Reports dyspnea and Denies orthopnea Respiratory Denies chest congestion, Denies cough, Reports dyspnea and Denies wheezing Gastrointestinal Gastrointestinal: Denies abdominal pain, Denies change in bowel habits, Denies diarrhea, Denies nausea and Denies vomiting Genitourinary Denies difficulty urinating Musculoskeletal Denies other (edema legs) Neurologic Reports weakness Endocrine Denies palpitations Allergic/Immunologic Denies wheezing PFSH Medical History Cognitive impairment, mild, so stated (Acute) Constipation (Acute) Essential tremor (Acute) Gout (Acute) Low back pain (Acute) Atrial fibrillation (Acute) COPD (chronic obstructive pulmonary disease) (Acute) Diastolic CHF (Acute) Anemia (Chronic) CAD (coronary artery disease), [place] coronary artery (Chronic) Diabetes mellitus (Chronic) GERD (gastroesophageal reflux disease) (Chronic) HLD (hyperlipidemia) (Chronic) HTN (hypertension) (Chronic) Surgical History H/O arthroscopic knee surgery (Acute) H/O rotator cuff surgery (Acute) History of back surgery (Acute) H/O abdominal surgery (Chronic) Family History: Reviewed 07/20/18 by Kierra Dsouza DO Social History household members: spouse Smoking Status: Former smoker alcohol intake: never Exam Initial Vital Signs Initial Vital Signs: Vital Signs Pulse Rate 59 L 07/20/18 11:45 Respiratory Rate 20 07/20/18 11:45 Pulse Oximetry 96 07/20/18 11:45 GENERAL: Alert and oriented x three, obese male in mild distress. Patient is sort of slumped to his side. When sat up straighter in the bed and placed in better positioning his oxygenation comes up to 90% with out nasal cannula. 96% with 2L n/c. HEENT: Head normocephalic, atraumatic, EOMI, pupils reactive, face symmetric, moist mucous membranes NECK: Supple, full range of motion CARDIOVASCULAR: Regular rate and rhythm without murmurs, rubs or gallops. RESPIRATORY: Breath sounds decreased bilaterally although may be secondary to body habitus, no wheezes rales or rhonchi. No tachypnea. No accessory muscle use. ABDOMEN: Soft, nontender. Normoactive bowel sounds all 4 quadrants. No guarding or rebound, rigidity, no mass : No CVA tenderness EXTREMITIES: Normal range of motion, no clubbing, no lower extremity edema. Neurovascularly intact NEUROLOGICAL: Cranial nerves II through XII grossly intact. Moving all extremities SKIN: Warm, dry, no petechiae, no rashes or lesions. Course Orders Ordered: ED Orders 07/20/18 11:48 XR chest 1V Stat EKG-12 Lead Stat 07/20/18 11:55 CT head/brain wo con Stat 07/20/18 13:25 B Type Natriuretic Peptide Stat Blood Culture Stat Complete Blood Count AUTO DIFF Stat Comprehensive Metabolic Panel Stat Lactate (Lactic Acid) Stat Lipase Stat Partial Thromboplastin Time Stat Prothrombin Time INR Stat Troponin & CK Cardiac Panel Stat 07/20/18 14:47 Creatinine Urine Random Routine Potassium Urine Random Routine Sodium Urine Random Routine 07/20/18 14:57 Education, smoking cessation ONGOING 07/20/18 15:03 Consult to Discharge Planning Routine Consult to Occupational Therapy Evaluate & Treat Consult to Physical Therapy Evaluate & Treat 07/20/18 15:56 Urine, Eosinophil Count Routine 07/20/18 17:27 RT Consult Eval and Treat Now 07/20/18 17:34 Consult to Dietitian, Adult Routine Consult to Respiratory Therapy Evaluate & Treat Consult to Death Clearance Coordinator Routine 07/20/18 17:40 Creatine Kinase Routine Uric Acid Routine 07/20/18 19:11 CPAP RT PROTOCOL 07/20/18 19:12 Urinalysis and Microscopic Stat 07/21/18 05:00 Complete Blood Count AUTO DIFF DAILY Comprehensive Metabolic Panel DAILY Magnesium DAILY Phosphorous DAILY Acetaminophen (Tylenol) 650 mg PO Q6HR PRN PRN Reason: As Needed for Fever/Mild Pain Albuterol (Ventolin Hfa) 2 puff INH Q6H PRN PRN Reason: Shortness Of Breath Albuterol/Ipratropium (Duoneb) 3 ml INH RTQ6HR PRN PRN Reason: Shortness Of Breath Or Wheezing Allopurinol (Zyloprim) 100 mg PO DAILY [facility] Aspirin (Aspirin Ec) 81 mg PO 0630 [facility] Atorvastatin Calcium (Lipitor) 40 mg PO BEDTIME [facility] Beclomethasone Dipropionate (Qvar) 2 puff INH BID PRN PRN Reason: Shortness Of Breath Bisacodyl (Dulcolax) 10 mg PO DAILY PRN PRN Reason: Constipation Calcium Carbonate (Tums) 1,000 mg PO Q4HR PRN PRN Reason: Dyspepsia Docusate Sodium (Colace) 100 mg PO DAILY PRN PRN Reason: stool softener Doxazosin Mesylate (Cardura) 8 mg PO 0630 [facility] Fish Oil (Fish Oil) 1,000 mg PO DAILY [facility] Furosemide (Lasix) 20 mg PO DAILY [facility] Gabapentin (Neurontin) 900 mg PO TID [facility] Glimepiride (Amaryl) 1 mg PO BIDWM [facility] Last Admin: 07/20/18 17:33 Dose: 1 mg Heparin Sodium (Porcine) (Heparin) 5,000 unit SUBCUT BID [facility] Hydralazine HCl (Apresoline) 10 mg IV Q6HR PRN PRN Reason: SBP>160 Sodium Chloride (Normal Saline 0.9%) 1,000 mls @ 50 mls/hr IV CONT [facility] Last Infusion: 07/20/18 17:37 Dose: 50 mls/hr Admin: 07/20/18 16:57 Dose: 100 mls/hr Insulin Aspart (Novolog) 1 unit SUBCUT ACHS [facility]; Protocol Levothyroxine Sodium (Synthroid) 100 mcg PO DAILY [facility] Levothyroxine Sodium (Synthroid) 200 mcg PO DAILY [facility] Magnesium Hydroxide (Milk Of Magnesia) 30 ml PO DAILY PRN PRN Reason: Constipation Multivitamins (Tab-A-Sacha) 1 tab PO DAILY [facility] Nitroglycerin (Nitrostat) 0.4 mg SL Q5MIN PRN PRN Reason: Chest Pain Oxybutynin (Ditropan) 5 mg PO BID [facility] Oxycodone HCl (Percolone) 10 mg PO PRN PRN PRN Reason: pain Pantoprazole Sodium (Protonix) 20 mg PO QNOON [facility] Polyethylene Glycol (Miralax) 17 gm PO DAILY PRN PRN Reason: Constipation Propranolol HCl (Inderal) 60 mg PO TID [facility] Vitamin D (Vitamin D3) 1,000 unit PO DAILY [facility] Discontinued Medications Albuterol/Ipratropium (Duoneb) 3 ml INH NOW ONE Stop: 07/20/18 13:56 Last Admin: 07/20/18 13:57 Dose: 3 ml Dextrose (D50w) 50 gm IV NOW ONE Stop: 07/20/18 14:22 Last Admin: 07/20/18 15:25 Dose: Dextrose (D50w) 25 gm IV NOW ONE Stop: 07/20/18 15:27 Last Admin: 07/20/18 15:27 Dose: 25 gm Furosemide (Lasix) 40 mg IV NOW ONE Stop: 07/20/18 14:22 Last Admin: 07/20/18 15:23 Dose: 40 mg Sodium Chloride (Normal Saline 0.9%) 1,000 mls @ 150 mls/hr IV CONT [facility] Last Infusion: 07/20/18 16:09 Dose: 150 mls/hr Infusion: 07/20/18 15:47 Dose: 150 mls/hr Infusion: 07/20/18 15:17 Dose: 0 mls/hr Admin: 07/20/18 13:00 Dose: 150 mls/hr Calcium Gluconate 4.65 meq/ (Sodium Chloride) 60 mls @ 120 mls/hr IV NOW ONE Stop: 07/20/18 14:26 Last Infusion: 07/20/18 15:16 Dose: 0 mls/hr Admin: 07/20/18 15:06 Dose: 120 mls/hr Insulin Human Regular (Humulin R) 5 unit IV NOW ONE Stop: 07/20/18 14:22 Last Admin: 07/20/18 15:24 Dose: 5 unit Sodium Polystyrene Sulfonate (Kayexalate) 30 gm PO NOW ONE Stop: 07/20/18 14:22 Last Admin: 07/20/18 15:27 Dose: 30 gm Sodium Polystyrene Sulfonate (Kayexalate) 30 gm PO NOW ONE Stop: 07/20/18 16:04 Last Admin: 07/20/18 17:34 Dose: 30 gm Vital Signs - 8 hr 07/20/18 11:45 07/20/18 11:56 07/20/18 13:30 Temperature 98.5 F Pulse Rate 59 L 53 L 54 L Respiratory Rate 20 23 24 Blood Pressure 101/65 Blood Pressure [Left Arm] 101/46 L Pulse Oximetry 96 84 L 91 07/20/18 16:06 12/04/18 17:03 07/20/18 17:08 Temperature Pulse Rate 74 Respiratory Rate 19 Blood Pressure 118/53 L Blood Pressure [Left Arm] Pulse Oximetry 92 94 90 L 07/20/18 18:05 07/20/18 18:15 Temperature 98.0 F Pulse Rate 111 H Respiratory Rate 18 Blood Pressure 105/46 L Blood Pressure [Left Arm] Pulse Oximetry 94 90 L MDM - Weakness Lab Data Attestation: I reviewed the patient's lab results. Result diagrams: 07/20/18 13:25 07/20/18 13:25 Lab Results 07/20/18 07/20/18 07/20/18 Range/Units 13:25 13:25 13:25 WBC 7.6 (4.5-11.0) X10^3/uL RBC 3.98 L (4.5-5.9) X10^6/uL Hgb 11.4 L (13.5-17.5) g/dL Hct 36.0 L (41-53) % MCV 90.3 (80-100) fL MCH 28.8 (26-34) PG MCHC 31.8 (30-36) % RDW 17.8 H (11.6-14.8) % Plt Count 210 (150-400) X10^3/uL Neut % (Auto) 72.4 (50-75) % Lymph % (Auto) 17.2 L (25-40) % [place] % (Auto) 7.5 (3-14) % Eos % (Auto) 2.4 (2-4) % Baso % (Auto) 0.5 (0-2) % Neut # (Auto) 5500 (7718-5696) /uL PT 11.7 (10.1-12.7) SECONDS INR 1.1 (0.9-1.3) APTT 32 (26.4-36.2) SECONDS Sodium (137-145) mmol/L Potassium (3.4-5.1) mmol/L Chloride (98-107) mmol/L Carbon Dioxide (22-32) mmol/L BUN (9-20) mg/dL Creatinine (0.66-1.25) mg/dL Estimated GFR (>60) mL/min BUN/Creatinine Ratio (6-22) Glucose (80-110) mg/dL Lactate (0.7-2.1) mmol/L Uric Acid (3.5-8.5) mg/dL Calcium (8.4-10.2) mg/dL Total Bilirubin (0.2-1.3) mg/dL AST (17-59) IU/L ALT (21-72) IU/L Alkaline Phosphatase (38-126) U/L Total Creatine Kinase (55-170) U/L CK-MB (CK-2) CK-MB (CK-2) Rel Index Troponin I (0.01-0.034) ng/mL B-Natriuretic Peptide 98.0 (<100) Total Protein (6.3-8.2) g/dL Albumin (3.5-5.0) g/dL Globulin (1.7-4.1) g/dL Albumin/Globulin Ratio (1.0-2.8) Lipase (23-300) U/L Ur Random Sodium (30-90) mmol/L Ur Random Potassium mmol/L Urine Creatinine mg/dL 07/20/18 07/20/18 07/20/18 Range/Units 13:25 13:25 14:47 WBC (4.5-11.0) X10^3/uL RBC (4.5-5.9) X10^6/uL Hgb (13.5-17.5) g/dL Hct (41-53) % MCV (80-100) fL MCH (26-34) PG MCHC (30-36) % RDW (11.6-14.8) % Plt Count (150-400) X10^3/uL Neut % (Auto) (50-75) % Lymph % (Auto) (25-40) % [place] % (Auto) (3-14) % Eos % (Auto) (2-4) % Baso % (Auto) (0-2) % Neut # (Auto) (2060-0004) /uL PT (10.1-12.7) SECONDS INR (0.9-1.3) APTT (26.4-36.2) SECONDS Sodium 140 (137-145) mmol/L Potassium 6.1 H (3.4-5.1) mmol/L Chloride 100 (98-107) mmol/L Carbon Dioxide 32 (22-32) mmol/L BUN 49 H (9-20) mg/dL Creatinine 1.70 H (0.66-1.25) mg/dL Estimated GFR 39.7 L (>60) mL/min BUN/Creatinine Ratio 28.8 H (6-22) Glucose 129 H (80-110) mg/dL Lactate 0.9 (0.7-2.1) mmol/L Uric Acid (3.5-8.5) mg/dL Calcium 8.5 (8.4-10.2) mg/dL Total Bilirubin 0.5 (0.2-1.3) mg/dL AST 12 L (17-59) IU/L ALT 19 L (21-72) IU/L Alkaline Phosphatase 62 (38-126) U/L Total Creatine Kinase < 20 L (55-170) U/L CK-MB (CK-2) TNP CK-MB (CK-2) Rel Index TNP Troponin I < 0.012 (0.01-0.034) ng/mL B-Natriuretic Peptide (<100) Total Protein 6.5 (6.3-8.2) g/dL Albumin 3.6 (3.5-5.0) g/dL Globulin 2.9 (1.7-4.1) g/dL Albumin/Globulin Ratio 1.2 (1.0-2.8) Lipase < 10 L (23-300) U/L Ur Random Sodium 73 (30-90) mmol/L Ur Random Potassium 21.0 mmol/L Urine Creatinine 33.1 mg/dL 07/20/18 Range/Units 17:40 WBC (4.5-11.0) X10^3/uL RBC (4.5-5.9) X10^6/uL Hgb (13.5-17.5) g/dL Hct (41-53) % MCV (80-100) fL MCH (26-34) PG MCHC (30-36) % RDW (11.6-14.8) % Plt Count (150-400) X10^3/uL Neut % (Auto) (50-75) % Lymph % (Auto) (25-40) % [place] % (Auto) (3-14) % Eos % (Auto) (2-4) % Baso % (Auto) (0-2) % Neut # (Auto) (1933-2511) /uL PT (10.1-12.7) SECONDS INR (0.9-1.3) APTT (26.4-36.2) SECONDS Sodium (137-145) mmol/L Potassium (3.4-5.1) mmol/L Chloride (98-107) mmol/L Carbon Dioxide (22-32) mmol/L BUN (9-20) mg/dL Creatinine (0.66-1.25) mg/dL Estimated GFR (>60) mL/min BUN/Creatinine Ratio (6-22) Glucose (80-110) mg/dL Lactate (0.7-2.1) mmol/L Uric Acid 11.8 H (3.5-8.5) mg/dL Calcium (8.4-10.2) mg/dL Total Bilirubin (0.2-1.3) mg/dL AST (17-59) IU/L ALT (21-72) IU/L Alkaline Phosphatase (38-126) U/L Total Creatine Kinase < 20 L (55-170) U/L CK-MB (CK-2) CK-MB (CK-2) Rel Index Troponin I (0.01-0.034) ng/mL B-Natriuretic Peptide (<100) Total Protein (6.3-8.2) g/dL Albumin (3.5-5.0) g/dL Globulin (1.7-4.1) g/dL Albumin/Globulin Ratio (1.0-2.8) Lipase (23-300) U/L Ur Random Sodium (30-90) mmol/L Ur Random Potassium mmol/L Urine Creatinine mg/dL Point of Care Testing Glucose POC [address] scan - head: Radiologist's impression: [address] [address] [address] Scan Report Signed Patient: Bossman Denton CMR#: [id number] : 5Acct:[id number] Age/Sex: 73 / MDate of Service: 07/20/18 Loc: ED Accession Number: [id number] Procedure: CT head/brain wo con Ordering Provider: Elsi Temple D.O. PROCEDURE: CT HEAD/BRAIN WO CON INDICATIONS: weakness TECHNIQUE: Noncontrast 4.5 mm thick angled axial sections acquired from the foramen magnum to the vertex, with coronal and sagittal reformats. For radiation dose reduction, the following was used: automated exposure control, adjustment of mA and/or kV according to patient size. COMPARISON: [facility], CR, XR CHEST 1V, 07/20/2018, 11:52. [facility], CT, HEAD WITHOUT CONTRAST, 09/11/2017, 11:58. FINDINGS: Image quality: This examination is limited by involuntary motion artifact. CSF spaces: Basal cisterns are patent. No extra-axial fluid collections. The ventricles are symmetric in size and shape. Brain: No intracranial bleeds or masses. There is cerebral volume loss for age, with resultant ventricular and sulcal prominence. There are periventricular and deep white matter chronic small vessel ischemic changes. There is intracranial internal carotid artery atherosclerosis. Skull and face: Calvarium and visualized facial bones appear intact, without suspicious lesions. Sinuses: Visualized sinuses and mastoids are clear. IMPRESSION: Limited study demonstrating no verenice, acute intracranial process. If there is strong clinical suspicion for an acute stroke, please consider an MRI for further evaluation, as it is more sensitive (assuming that there is no contraindication to MRI). Note is made of age-appropriate brain parenchymal volume loss and chronic small vessel ischemic changes. Dictated by: Nikita Atkins M.D. on 07/20/2018 at 11:55 Approved by: Nikita Atkins M.D. on 07/20/2018 at 12:00 Chest x-ray: Radiologist's impression: [address] [address] XRay Report Signed Patient: Bossman Denton [facility]#: [id number] : 5Acct:[id number] Age/Sex: 73 / MDate of Service: 07/20/18 Loc: ED Accession Number: [id number] Procedure: XR chest 1V Ordering Provider: Elsi Temple D.O. PROCEDURE: XR CHEST 1V INDICATIONS: weakness, trouble breathing TECHNIQUE: One view of the chest was acquired. COMPARISON: [facility], , XR CHEST 1V, 06/13/2018, 4:39. FINDINGS: Surgical changes and devices: Extensive fixation hardware throughout thoracic spine and upper lumbar spine is seen unchanged from previous study. Lungs and pleura: There is pulmonary vascular congestion. Small left pleural effusion is also seen. Bibasilar atelectasis/small infiltrates are noted. No gross pneumothorax. Mediastinum: Mediastinal contours appear normal. Heart size is enlarged. Bones and chest wall: No suspicious bony lesions. Overlying soft tissues appear unremarkable. IMPRESSION: Congestive changes and small left pleural effusion with bibasilar small infiltrates/atelectasis. No gross pneumothorax. Dictated by: Costa Grimm M.D. on 07/20/2018 at 12:06 Approved by: Costa Grimm M.D. on 07/20/2018 at 12:08 ECG Data Attestation: I personally reviewed and interpreted this ECG as follows: Interpretation: Irregular rhythm, right bundle branch block. Patient has artifact in several leads including V1 3 and 4. Patient EKG looks almost sinusoidal in comparison to priors. MDM Narrative Medical decision making narrative: Patient comes in with concern for weakness. His oxygenation easily improved with positioning. Also discussed with his felt like he was discharged on Lisinopril 20 mg he was supposed to be on 5 mg of been taking this for a couple days, it was changed this morning to 5 mg. Patient also was on oxygen at the [facility] facility/rehab but was not discharged home with it although he was sent home with a trial edema seen. His talked to the home health care people today and they agreed that he qualified for oxygen and were working on this as well. I think his weakness is more likely secondary to his hyperkalemia and acute kidney injury. I appears to had episodes where his renal function is decreased and he has had 1 prior episode of hyperkalemia although not quite this high. Patient was given fluids, calcium gluconate, Kayexalate, Lasix as well as insulin and dextrose 50. He has anemia but appears to be stable. Lactate is normal. Troponin is negative. BNP is not elevated. Spoke with the hospitalist Dr. Benavidez who accepted for admission. Patient had Chen catheter placed and had very large amount of urine so some of his issues may be obstructive. Critical Care Time Critical Care Time: Yes Total Critical Care Time: 60 Attestation: The high probability of a clinically significant, sudden or life threatening deterioration of the [cardiac] system(s) required my full and direct attention, intervention and personal management. The aggregate critical care time was [] minutes. This time is in addition to time spent performing reported procedures but includes the following: [x] Data Review and interpretation [x] Patient assessment and monitoring of vital signs [x] Documentation [x] Medication orders and management Discharge Plan Departure Patient Disposition: Admitted As Inpatient Clinical Impression: Acute hyperkalemia, Acute kidney injury, Weakness Discharge Date/Time: 07/20/18 16:07 Interventions: ED Discharge Assessment Last Done: 07/20/18 16:06 Admit Date/Time: 07/20/18 15:01 Admit Provider: Kierra Dsouza
--- NOTE | 2018-07-20 11:51 | ED_ITS ---
HPI - Weakness General Chief complaint: Weakness Stated complaint: Increased weakness, fever Time Seen by Provider: 07/20/18 11:41 Source: patient and EMS Mode of arrival: EMS History of Present Illness HPI Narrative: This is a 73-year-old male who comes to the emergency department for complaint of weakness and trouble breathing. Patient is a poor historian but per EMS he was found standing, family was holding him up because they were afraid that they could get him to a chair safely. He had not actually had a fall. EMS assisted him. They noted that his oxygenation was 78% on room air. He is supposed to be on nasal cannula at all times. Patient was placed on nasal cannula 4 L came up to 96% for EMS patient denies any recent fevers. He states he is short of breath. He states he feels a little bit worse than when he left rehab recently. Patient is denying any chest pain. He is denying any nausea or vomiting. He states that he does use inhalers, he wall falls on whether they are helpful or not helpful. He had a recent sepsis was on a ventilator for prostatitis Related Data Home Medications Medication Instructions Recorded Confirmed albuterol sulfate [Ventolin HFA] 2 puff INH Q6HP PRN #0 puff 05/20/13 07/20/18 lisinopril 5 mg PO BEDTIME #0 tab 05/20/13 07/20/18 polyethylene glycol 3350 [Miralax] 17 gm PO QDAYP PRN #0 05/20/13 07/20/18 gabapentin [Neurontin] 600 mg PO BEDTIME #0 09/05/17 07/20/18 glimepiride 1 mg PO BIDCC #0 09/05/17 07/20/18 acetaminophen 2 cap PO TID 06/07/18 07/20/18 aspirin 81 mg PO 0630 06/07/18 07/20/18 atorvastatin 1 tab PO BEDTIME 06/07/18 07/20/18 beclomethasone dipropionate [Qvar 2 puff INHALATION BID PRN 06/07/18 07/20/18 RediHaler] cholecalciferol (vitamin D3) 1,000 unit PO DAILY 06/07/18 07/20/18 [Vitamin D3] docusate sodium 100 mg PO DAILY PRN 06/07/18 07/20/18 doxazosin 8 mg PO 0630 06/07/18 07/20/18 furosemide 40 mg PO 0630 06/07/18 07/20/18 gabapentin 900 mg PO TID 06/07/18 07/20/18 multivitamin 1 tab PO DAILY 06/07/18 07/20/18 nitroglycerin 0.4 mg SUBLINGUAL Q5-15M PRN 06/07/18 07/20/18 omega [id number] oil [Fish Oil] 1 cap PO DAILY 06/07/18 07/20/18 oxybutynin chloride 1 tab PO BID 06/07/18 07/20/18 pantoprazole 20 mg PO QNOON 06/07/18 07/20/18 propranolol 1 tab PO TID 06/07/18 07/20/18 allopurinol 100 mg PO DAILYX7 07/20/18 07/20/18 levothyroxine 100 mcg PO DAILY 07/20/18 07/20/18 levothyroxine 200 mcg PO DAILY 07/20/18 07/20/18 oxycodone 10 mg PO PRN PRN 07/20/18 07/20/18 Allergies Allergy/AdvReac Type Severity Reaction Status Date / Time fentanyl [FENTANYL] Allergy Severe HIVES, Verified 06/07/18 14:48 ITCHING iodine [IODINE] Allergy Severe RASH - Verified 06/07/18 14:48 TOPICAL AND IV CONTRAST shellfish derived Allergy Severe Abdominal Verified 06/07/18 14:48 [SHELLFISH DERIVED] Pain cyclobenzaprine Allergy Intermediate ITCHING Verified 06/07/18 14:48 [CYCLOBENZAPRINE] diclofenac [DICLOFENAC] Allergy Intermediate ITCHING Verified 06/07/18 14:48 methadone [METHADONE] Allergy Intermediate ITCHING Verified 06/07/18 14:48 hydromorphone [HYDROMORPHONE] Allergy Mild ITCHING Verified 06/07/18 14:48 hydroxyzine [HYDROXYZINE] Allergy Mild FEVER, Verified 06/07/18 14:48 SWEATS ibuprofen [IBUPROFEN] Allergy Unknown Verified 06/07/18 14:48 aspirin [ASPIRIN] AdvReac Severe STOMACH Verified 06/07/18 14:48 PAIN & HIVE W/325MG, CAN TAKE 81 MG solifenacin [From [facility]] AdvReac Unknown INCREASE Verified 06/07/18 21:43 PVR AND URINARY SX RACHEL AdvReac Unknown DOES NOT Uncoded 11/25/17 12:09 WORK Review of Systems Review of Systems All systems reviewed & are unremarkable except as noted in HPI and below Constitutional Denies fever(s) and Reports weakness Cardiovascular Denies chest pain, Denies irregular heart rhythm, Denies lightheadedness, Denies palpitations, Reports dyspnea and Denies orthopnea Respiratory Denies chest congestion, Denies cough, Reports dyspnea and Denies wheezing Gastrointestinal Gastrointestinal: Denies abdominal pain, Denies change in bowel habits, Denies diarrhea, Denies nausea and Denies vomiting Genitourinary Denies difficulty urinating Musculoskeletal Denies other (edema legs) Neurologic Reports weakness Endocrine Denies palpitations Allergic/Immunologic Denies wheezing PFSH Medical History Cognitive impairment, mild, so stated (Acute) Constipation (Acute) Essential tremor (Acute) Gout (Acute) Low back pain (Acute) Atrial fibrillation (Acute) COPD (chronic obstructive pulmonary disease) (Acute) Diastolic CHF (Acute) Anemia (Chronic) CAD (coronary artery disease), [place] coronary artery (Chronic) Diabetes mellitus (Chronic) GERD (gastroesophageal reflux disease) (Chronic) HLD (hyperlipidemia) (Chronic) HTN (hypertension) (Chronic) Surgical History H/O arthroscopic knee surgery (Acute) H/O rotator cuff surgery (Acute) History of back surgery (Acute) H/O abdominal surgery (Chronic) Family History: Reviewed 07/20/18 by Kierra Dsouza DO Social History household members: spouse Smoking Status: Former smoker alcohol intake: never Exam Initial Vital Signs Initial Vital Signs: Vital Signs Pulse Rate 59 L 07/20/18 11:45 Respiratory Rate 20 07/20/18 11:45 Pulse Oximetry 96 07/20/18 11:45 GENERAL: Alert and oriented x three, obese male in mild distress. Patient is sort of slumped to his side. When sat up straighter in the bed and placed in better positioning his oxygenation comes up to 90% with out nasal cannula. 96% with 2L n/c. HEENT: Head normocephalic, atraumatic, EOMI, pupils reactive, face symmetric, moist mucous membranes NECK: Supple, full range of motion CARDIOVASCULAR: Regular rate and rhythm without murmurs, rubs or gallops. RESPIRATORY: Breath sounds decreased bilaterally although may be secondary to body habitus, no wheezes rales or rhonchi. No tachypnea. No accessory muscle use. ABDOMEN: Soft, nontender. Normoactive bowel sounds all 4 quadrants. No guarding or rebound, rigidity, no mass : No CVA tenderness EXTREMITIES: Normal range of motion, no clubbing, no lower extremity edema. Neurovascularly intact NEUROLOGICAL: Cranial nerves II through XII grossly intact. Moving all extremities SKIN: Warm, dry, no petechiae, no rashes or lesions. Course Orders Ordered: ED Orders 07/20/18 11:48 XR chest 1V Stat EKG-12 Lead Stat 07/20/18 11:55 CT head/brain wo con Stat 07/20/18 13:25 B Type Natriuretic Peptide Stat Blood Culture Stat Complete Blood Count AUTO DIFF Stat Comprehensive Metabolic Panel Stat Lactate (Lactic Acid) Stat Lipase Stat Partial Thromboplastin Time Stat Prothrombin Time INR Stat Troponin & CK Cardiac Panel Stat 07/20/18 14:47 Creatinine Urine Random Routine Potassium Urine Random Routine Sodium Urine Random Routine 07/20/18 14:57 Education, smoking cessation ONGOING 07/20/18 15:03 Consult to Discharge Planning Routine Consult to Occupational Therapy Evaluate & Treat Consult to Physical Therapy Evaluate & Treat 07/20/18 15:56 Urine, Eosinophil Count Routine 07/20/18 17:27 RT Consult Eval and Treat Now 07/20/18 17:34 Consult to Dietitian, Adult Routine Consult to Respiratory Therapy Evaluate & Treat Consult to Grounds Maintenance Supervisor Routine 07/20/18 17:40 Creatine Kinase Routine Uric Acid Routine 07/20/18 19:11 CPAP RT PROTOCOL 07/20/18 19:12 Urinalysis and Microscopic Stat 07/21/18 05:00 Complete Blood Count AUTO DIFF DAILY Comprehensive Metabolic Panel DAILY Magnesium DAILY Phosphorous DAILY Acetaminophen (Tylenol) 650 mg PO Q6HR PRN PRN Reason: As Needed for Fever/Mild Pain Albuterol (Ventolin Hfa) 2 puff INH Q6H PRN PRN Reason: Shortness Of Breath Albuterol/Ipratropium (Duoneb) 3 ml INH RTQ6HR PRN PRN Reason: Shortness Of Breath Or Wheezing Allopurinol (Zyloprim) 100 mg PO DAILY [facility] Aspirin (Aspirin Ec) 81 mg PO 0630 [facility] Atorvastatin Calcium (Lipitor) 40 mg PO BEDTIME [facility] Beclomethasone Dipropionate (Qvar) 2 puff INH BID PRN PRN Reason: Shortness Of Breath Bisacodyl (Dulcolax) 10 mg PO DAILY PRN PRN Reason: Constipation Calcium Carbonate (Tums) 1,000 mg PO Q4HR PRN PRN Reason: Dyspepsia Docusate Sodium (Colace) 100 mg PO DAILY PRN PRN Reason: stool softener Doxazosin Mesylate (Cardura) 8 mg PO 0630 [facility] Fish Oil (Fish Oil) 1,000 mg PO DAILY [facility] Furosemide (Lasix) 20 mg PO DAILY [facility] Gabapentin (Neurontin) 900 mg PO TID [facility] Glimepiride (Amaryl) 1 mg PO BIDWM [facility] Last Admin: 07/20/18 17:33 Dose: 1 mg Heparin Sodium (Porcine) (Heparin) 5,000 unit SUBCUT BID [facility] Hydralazine HCl (Apresoline) 10 mg IV Q6HR PRN PRN Reason: SBP>160 Sodium Chloride (Normal Saline 0.9%) 1,000 mls @ 50 mls/hr IV CONT [facility] Last Infusion: 07/20/18 17:37 Dose: 50 mls/hr Admin: 07/20/18 16:57 Dose: 100 mls/hr Insulin Aspart (Novolog) 1 unit SUBCUT ACHS [facility]; Protocol Levothyroxine Sodium (Synthroid) 100 mcg PO DAILY [facility] Levothyroxine Sodium (Synthroid) 200 mcg PO DAILY [facility] Magnesium Hydroxide (Milk Of Magnesia) 30 ml PO DAILY PRN PRN Reason: Constipation Multivitamins (Tab-A-Sacha) 1 tab PO DAILY [facility] Nitroglycerin (Nitrostat) 0.4 mg SL Q5MIN PRN PRN Reason: Chest Pain Oxybutynin (Ditropan) 5 mg PO BID [facility] Oxycodone HCl (Percolone) 10 mg PO PRN PRN PRN Reason: pain Pantoprazole Sodium (Protonix) 20 mg PO QNOON [facility] Polyethylene Glycol (Miralax) 17 gm PO DAILY PRN PRN Reason: Constipation Propranolol HCl (Inderal) 60 mg PO TID [facility] Vitamin D (Vitamin D3) 1,000 unit PO DAILY [facility] Discontinued Medications Albuterol/Ipratropium (Duoneb) 3 ml INH NOW ONE Stop: 07/20/18 13:56 Last Admin: 07/20/18 13:57 Dose: 3 ml Dextrose (D50w) 50 gm IV NOW ONE Stop: 07/20/18 14:22 Last Admin: 07/20/18 15:25 Dose: Dextrose (D50w) 25 gm IV NOW ONE Stop: 07/20/18 15:27 Last Admin: 07/20/18 15:27 Dose: 25 gm Furosemide (Lasix) 40 mg IV NOW ONE Stop: 07/20/18 14:22 Last Admin: 07/20/18 15:23 Dose: 40 mg Sodium Chloride (Normal Saline 0.9%) 1,000 mls @ 150 mls/hr IV CONT LUIS FELIPE Last Infusion: 07/20/18 16:09 Dose: 150 mls/hr Infusion: 07/20/18 15:47 Dose: 150 mls/hr Infusion: 07/20/18 15:17 Dose: 0 mls/hr Admin: 07/20/18 13:00 Dose: 150 mls/hr Calcium Gluconate 4.65 meq/ (Sodium Chloride) 60 mls @ 120 mls/hr IV NOW ONE Stop: 07/20/18 14:26 Last Infusion: 07/20/18 15:16 Dose: 0 mls/hr Admin: 07/20/18 15:06 Dose: 120 mls/hr Insulin Human Regular (Humulin R) 5 unit IV NOW ONE Stop: 07/20/18 14:22 Last Admin: 07/20/18 15:24 Dose: 5 unit Sodium Polystyrene Sulfonate (Kayexalate) 30 gm PO NOW ONE Stop: 07/20/18 14:22 Last Admin: 07/20/18 15:27 Dose: 30 gm Sodium Polystyrene Sulfonate (Kayexalate) 30 gm PO NOW ONE Stop: 07/20/18 16:04 Last Admin: 07/20/18 17:34 Dose: 30 gm Vital Signs - 8 hr 07/20/18 11:45 07/20/18 11:56 07/20/18 13:30 Temperature 98.5 F Pulse Rate 59 L 53 L 54 L Respiratory Rate 20 23 24 Blood Pressure 101/65 Blood Pressure [Left Arm] 101/46 L Pulse Oximetry 96 84 L 91 07/20/18 16:06 12/04/18 17:03 07/20/18 17:08 Temperature Pulse Rate 74 Respiratory Rate 19 Blood Pressure 118/53 L Blood Pressure [Left Arm] Pulse Oximetry 92 94 90 L 07/20/18 18:05 07/20/18 18:15 Temperature 98.0 F Pulse Rate 111 H Respiratory Rate 18 Blood Pressure 105/46 L Blood Pressure [Left Arm] Pulse Oximetry 94 90 L MDM - Weakness Lab Data Attestation: I reviewed the patient's lab results. Result diagrams: 07/20/18 13:25 07/20/18 13:25 Lab Results 07/20/18 07/20/18 07/20/18 Range/Units 13:25 13:25 13:25 WBC 7.6 (4.5-11.0) X10^3/uL RBC 3.98 L (4.5-5.9) X10^6/uL Hgb 11.4 L (13.5-17.5) g/dL Hct 36.0 L (41-53) % MCV 90.3 (80-100) fL MCH 28.8 (26-34) PG MCHC 31.8 (30-36) % RDW 17.8 H (11.6-14.8) % Plt Count 210 (150-400) X10^3/uL Neut % (Auto) 72.4 (50-75) % Lymph % (Auto) 17.2 L (25-40) % Woods % (Auto) 7.5 (3-14) % Eos % (Auto) 2.4 (2-4) % Baso % (Auto) 0.5 (0-2) % Neut # (Auto) 5500 (3425-0882) /uL PT 11.7 (10.1-12.7) SECONDS INR 1.1 (0.9-1.3) APTT 32 (26.4-36.2) SECONDS Sodium (137-145) mmol/L Potassium (3.4-5.1) mmol/L Chloride (98-107) mmol/L Carbon Dioxide (22-32) mmol/L BUN (9-20) mg/dL Creatinine (0.66-1.25) mg/dL Estimated GFR (>60) mL/min BUN/Creatinine Ratio (6-22) Glucose (80-110) mg/dL Lactate (0.7-2.1) mmol/L Uric Acid (3.5-8.5) mg/dL Calcium (8.4-10.2) mg/dL Total Bilirubin (0.2-1.3) mg/dL AST (17-59) IU/L ALT (21-72) IU/L Alkaline Phosphatase (38-126) U/L Total Creatine Kinase (55-170) U/L CK-MB (CK-2) CK-MB (CK-2) Rel Index Troponin I (0.01-0.034) ng/mL B-Natriuretic Peptide 98.0 (<100) Total Protein (6.3-8.2) g/dL Albumin (3.5-5.0) g/dL Globulin (1.7-4.1) g/dL Albumin/Globulin Ratio (1.0-2.8) Lipase (23-300) U/L Ur Random Sodium (30-90) mmol/L Ur Random Potassium mmol/L Urine Creatinine mg/dL 07/20/18 07/20/18 07/20/18 Range/Units 13:25 13:25 14:47 WBC (4.5-11.0) X10^3/uL RBC (4.5-5.9) X10^6/uL Hgb (13.5-17.5) g/dL Hct (41-53) % MCV (80-100) fL MCH (26-34) PG MCHC (30-36) % RDW (11.6-14.8) % Plt Count (150-400) X10^3/uL Neut % (Auto) (50-75) % Lymph % (Auto) (25-40) % Woods % (Auto) (3-14) % Eos % (Auto) (2-4) % Baso % (Auto) (0-2) % Neut # (Auto) (5019-4362) /uL PT (10.1-12.7) SECONDS INR (0.9-1.3) APTT (26.4-36.2) SECONDS Sodium 140 (137-145) mmol/L Potassium 6.1 H (3.4-5.1) mmol/L Chloride 100 (98-107) mmol/L Carbon Dioxide 32 (22-32) mmol/L BUN 49 H (9-20) mg/dL Creatinine 1.70 H (0.66-1.25) mg/dL Estimated GFR 39.7 L (>60) mL/min BUN/Creatinine Ratio 28.8 H (6-22) Glucose 129 H (80-110) mg/dL Lactate 0.9 (0.7-2.1) mmol/L Uric Acid (3.5-8.5) mg/dL Calcium 8.5 (8.4-10.2) mg/dL Total Bilirubin 0.5 (0.2-1.3) mg/dL AST 12 L (17-59) IU/L ALT 19 L (21-72) IU/L Alkaline Phosphatase 62 (38-126) U/L Total Creatine Kinase < 20 L (55-170) U/L CK-MB (CK-2) TNP CK-MB (CK-2) Rel Index TNP Troponin I < 0.012 (0.01-0.034) ng/mL B-Natriuretic Peptide (<100) Total Protein 6.5 (6.3-8.2) g/dL Albumin 3.6 (3.5-5.0) g/dL Globulin 2.9 (1.7-4.1) g/dL Albumin/Globulin Ratio 1.2 (1.0-2.8) Lipase < 10 L (23-300) U/L Ur Random Sodium 73 (30-90) mmol/L Ur Random Potassium 21.0 mmol/L Urine Creatinine 33.1 mg/dL 07/20/18 Range/Units 17:40 WBC (4.5-11.0) X10^3/uL RBC (4.5-5.9) X10^6/uL Hgb (13.5-17.5) g/dL Hct (41-53) % MCV (80-100) fL MCH (26-34) PG MCHC (30-36) % RDW (11.6-14.8) % Plt Count (150-400) X10^3/uL Neut % (Auto) (50-75) % Lymph % (Auto) (25-40) % Woods % (Auto) (3-14) % Eos % (Auto) (2-4) % Baso % (Auto) (0-2) % Neut # (Auto) (0819-5340) /uL PT (10.1-12.7) SECONDS INR (0.9-1.3) APTT (26.4-36.2) SECONDS Sodium (137-145) mmol/L Potassium (3.4-5.1) mmol/L Chloride (98-107) mmol/L Carbon Dioxide (22-32) mmol/L BUN (9-20) mg/dL Creatinine (0.66-1.25) mg/dL Estimated GFR (>60) mL/min BUN/Creatinine Ratio (6-22) Glucose (80-110) mg/dL Lactate (0.7-2.1) mmol/L Uric Acid 11.8 H (3.5-8.5) mg/dL Calcium (8.4-10.2) mg/dL Total Bilirubin (0.2-1.3) mg/dL AST (17-59) IU/L ALT (21-72) IU/L Alkaline Phosphatase (38-126) U/L Total Creatine Kinase < 20 L (55-170) U/L CK-MB (CK-2) CK-MB (CK-2) Rel Index Troponin I (0.01-0.034) ng/mL B-Natriuretic Peptide (<100) Total Protein (6.3-8.2) g/dL Albumin (3.5-5.0) g/dL Globulin (1.7-4.1) g/dL Albumin/Globulin Ratio (1.0-2.8) Lipase (23-300) U/L Ur Random Sodium (30-90) mmol/L Ur Random Potassium mmol/L Urine Creatinine mg/dL Point of Care Testing Glucose POC [address] scan - head: Radiologist's impression: [address] [address] [address] Scan Report Signed Patient: Bossman Denton CMR#: [id number] : 5Acct:[id number] Age/Sex: 73 / MDate of Service: 07/20/18 Loc: ED Accession Number: [id number] Procedure: CT head/brain wo con Ordering Provider: Elsi Temple D.O. PROCEDURE: CT HEAD/BRAIN WO CON INDICATIONS: weakness TECHNIQUE: Noncontrast 4.5 mm thick angled axial sections acquired from the foramen magnum to the vertex, with coronal and sagittal reformats. For radiation dose reduction, the following was used: automated exposure control, adjustment of mA and/or kV according to patient size. COMPARISON: [facility], CR, XR CHEST 1V, 07/20/2018, 11:52. [facility], CT, HEAD WITHOUT CONTRAST, 09/11/2017, 11:58. FINDINGS: Image quality: This examination is limited by involuntary motion artifact. CSF spaces: Basal cisterns are patent. No extra-axial fluid collections. The ventricles are symmetric in size and shape. Brain: No intracranial bleeds or masses. There is cerebral volume loss for age , with resultant ventricular and sulcal prominence. There are periventricular and deep white matter chronic small vessel ischemic changes. There is intracranial internal carotid artery atherosclerosis. Skull and face: Calvarium and visualized facial bones appear intact, without suspicious lesions. Sinuses: Visualized sinuses and mastoids are clear. IMPRESSION: Limited study demonstrating no verenice, acute intracranial process. If there is strong clinical suspicion for an acute stroke, please consider an MRI for further evaluation, as it is more sensitive (assuming that there is no contraindication to MRI). Note is made of age-appropriate brain parenchymal volume loss and chronic small vessel ischemic changes. Dictated by: Nikita Atkins M.D. on 07/20/2018 at 11:55 Approved by: Nikita Atkins M.D. on 07/20/2018 at 12:00 Chest x-ray: Radiologist's impression: [address] [address] XRay Report Signed Patient: Bossman [facility]enton [facility]#: [id number] : 5Acct:[id number] Age/Sex: 73 / MDate of Service: 07/20/18 Loc: ED Accession Number: [id number] Procedure: XR chest 1V Ordering Provider: Elsi Temple D.O. PROCEDURE: XR CHEST 1V INDICATIONS: weakness, trouble breathing TECHNIQUE: One view of the chest was acquired. COMPARISON: [facility], , XR CHEST 1V, 06/13/2018, 4:39. FINDINGS: Surgical changes and devices: Extensive fixation hardware throughout thoracic spine and upper lumbar spine is seen unchanged from previous study. Lungs and pleura: There is pulmonary vascular congestion. Small left pleural effusion is also seen. Bibasilar atelectasis/small infiltrates are noted. No gross pneumothorax. Mediastinum: Mediastinal contours appear normal. Heart size is enlarged. Bones and chest wall: No suspicious bony lesions. Overlying soft tissues appear unremarkable. IMPRESSION: Congestive changes and small left pleural effusion with bibasilar small infiltrates/atelectasis. No gross pneumothorax. Dictated by: Costa Grimm M.D. on 07/20/2018 at 12:06 Approved by: Costa Grimm M.D. on 07/20/2018 at 12:08 ECG Data Attestation: I personally reviewed and interpreted this ECG as follows: Interpretation: Irregular rhythm, right bundle branch block. Patient has artifact in several leads including V1 3 and 4. Patient EKG looks almost sinusoidal in comparison to priors. MDM Narrative Medical decision making narrative: Patient comes in with concern for weakness. His oxygenation easily improved with positioning. Also discussed with his felt like he was discharged on Lisinopril 20 mg he was supposed to be on 5 mg of been taking this for a couple days, it was changed this morning to 5 mg. Patient also was on oxygen at the alf facility/rehab but was not discharged home with it although he was sent home with a trial edema seen. His talked to the home health care people today and they agreed that he qualified for oxygen and were working on this as well. I think his weakness is more likely secondary to his hyperkalemia and acute kidney injury. I appears to had episodes where his renal function is decreased and he has had 1 prior episode of hyperkalemia although not quite this high. Patient was given fluids , calcium gluconate, Kayexalate, Lasix as well as insulin and dextrose 50. He has anemia but appears to be stable. Lactate is normal. Troponin is negative. BNP is not elevated. Spoke with the hospitalist Dr. Benavidez who accepted for admission. Patient had Chen catheter placed and had very large amount of urine so some of his issues may be obstructive. Critical Care Time Critical Care Time: Yes Total Critical Care Time: 60 Attestation: The high probability of a clinically significant, sudden or life threatening deterioration of the [cardiac] system(s) required my full and direct attention, intervention and personal management. The aggregate critical care time was [] minutes. This time is in addition to time spent performing reported procedures but includes the following: [x] Data Review and interpretation [x] Patient assessment and monitoring of vital signs [x] Documentation [x] Medication orders and management Discharge Plan Departure Patient Disposition: Admitted As Inpatient Clinical Impression: Acute hyperkalemia, Acute kidney injury, Weakness Discharge Date/Time: 07/20/18 16:07 Interventions: ED Discharge Assessment Last Done: 07/20/18 16:06 Admit Date/Time: 07/20/18 15:01 Admit Provider: Kierra Dsouza
--- NOTE | 2018-07-20 11:55 | DI.CT.S_ITS ---
PROCEDURE: CT HEAD/BRAIN WO CON INDICATIONS: weakness TECHNIQUE: Noncontrast 4.5 mm thick angled axial sections acquired from the foramen magnum to the vertex, with coronal and sagittal reformats. For radiation dose reduction, the following was used: automated exposure control, adjustment of mA and/or kV according to patient size. COMPARISON: [facility], CR, XR CHEST 1V, 07/20/2018, 11:52. [facility], CT, HEAD WITHOUT CONTRAST, 09/11/2017, 11:58. FINDINGS: Image quality: This examination is limited by involuntary motion artifact. CSF spaces: Basal cisterns are patent. No extra-axial fluid collections. The ventricles are symmetric in size and shape. Brain: No intracranial bleeds or masses. There is cerebral volume loss for age, with resultant ventricular and sulcal prominence. There are periventricular and deep white matter chronic small vessel ischemic changes. There is intracranial internal carotid artery atherosclerosis. Skull and face: Calvarium and visualized facial bones appear intact, without suspicious lesions. Sinuses: Visualized sinuses and mastoids are clear. IMPRESSION: Limited study demonstrating no verenice, acute intracranial process. If there is strong clinical suspicion for an acute stroke, please consider an MRI for further evaluation, as it is more sensitive (assuming that there is no contraindication to MRI). Note is made of age-appropriate brain parenchymal volume loss and chronic small vessel ischemic changes. Dictated by: Nikita Atkins M.D. on 07/20/2018 at 11:55 Approved by: Nikita Atkins M.D. on 07/20/2018 at 12:00
[2018-07-20] MEDS: SODIUM CHLORIDE 0.9% 1,000 ML 150 ML IV (13:00)
[2018-07-20 13:38] LABS: Add Manual Diff / Slide Review NO; Basophils Percent Auto 0.5 % (0-2); Eosinophils Percent Auto 2.4 % (2-4); Hemoglobin 11.4 g/dL (13.5-17.5); Lymphocytes Percent Auto 17.2 % (25-40); Mean Corpuscular HGB Conc 31.8 % (30-36); Mean Corpuscular Hemoglobin 28.8 PG (26-34); Mean Corpuscular Volume 90.3 fL (80-100); Monocytes Percent Auto 7.5 % (3-14); Neutrophils Absolute Auto 5500 /uL (3000-5900); Neutrophils Percent Auto 72.4 % (50-75); Platelet Count 210 X10^3/uL (150-400); Red Blood Cell Count 3.98 X10^6/uL (4.5-5.9); Red Cell Distribution Width 17.8 % (11.6-14.8); White Blood Cell Count 7.6 X10^3/uL (4.5-11.0)
[2018-07-20 13:53] LABS: INR 1.1 (0.9-1.3); Prothrombin Time 11.7 SECONDS (10.1-12.7)
[2018-07-20 13:56] LABS: PTT Partial Thromboplastin Tim 32 SECONDS (26.4-36.2)
[2018-07-20] MEDS: ALBUTEROL/IPRATROPIUM 3 ML AMPUL INH (13:57)
[2018-07-20 13:58] LABS: Alanine Aminotransferase 19 IU/L (21-72); Albumin 3.6 g/dL (3.5-5.0); Albumin Globulin Ratio 1.2 (1.0-2.8); Alkaline Phosphatase 62 U/L (38-126); Aspartate Aminotransferase 12 IU/L (17-59); BUN Creatinine Ratio 28.8 (6-22); Bilirubin Total 0.5 mg/dL (0.2-1.3); Blood Urea Nitrogen 49 mg/dL (9-20); Calcium 8.5 mg/dL (8.4-10.2); Carbon Dioxide 32 mmol/L (22-32); Chloride 100 mmol/L (98-107); Creatine Kinase < 20 U/L (55-170); Estimated Glomerular Filt Rate 39.7 mL/min (>60); Globulin 2.9 g/dL (1.7-4.1); Glucose 129 mg/dL (80-110); HEMOLYSIS < 15 (0-50); Lactate (Lactic Acid) 0.9 mmol/L (0.7-2.1); Sodium 140 mmol/L (137-145); Total Protein 6.5 g/dL (6.3-8.2)
[2018-07-20 14:01] LABS: Lipase < 10 U/L (23-300); Potassium 6.1 mmol/L (3.4-5.1)
[2018-07-20 14:12] LABS: Troponin I < 0.012 ng/mL (0.01-0.034)
[2018-07-20] MEDS: CALCIUM GLUCONATE 4.65 MEQ in SODIUM CHLORIDE 0.9% 50 ML 120 ML IV (15:06)
[2018-07-20] MEDS: FUROSEMIDE 40 MG/4 ML VIAL IV (15:23)
[2018-07-20] MEDS: INSULIN REGULAR 100 UNIT/ML 3 ML VIAL IV (15:24)
[2018-07-20] MEDS: SODIUM POLYSTYRENE SULFON/SORB 15 GM/60 ML CUP 30 GM PO ×2 (15:27→17:34)
[2018-07-20] MEDS: DEXTROSE 50 % IN WATER 25 GM/50 ML SYRINGE IV (15:27)
[2018-07-20 16:10] LABS: Creatinine Urine Random 33.1 mg/dL; Sodium Urine Random 73 mmol/L (30-90)
[2018-07-20] MEDS: SODIUM CHLORIDE 0.9% 1,000 ML 100 ML IV (16:57)
--- NOTE | 2018-07-20 17:05 | PM.HP.1 ---
History of Present Illness Date Patient Seen: 07/20/18 Time Patient Seen: 17:06 Chief complaint: Increased weakness, fever Narrative: THIS IS A 73-YEAR-OLD MALE MORBIDLY OBESE WHO WAS BROUGHT TO THE HOSPITAL BY HIS AND EMS. REPORTEDLY PATIENT WAS RECENTLY IN THE HOSPITAL DISCHARGE TO HALFWAY FACILITY. THERE IS PAIN IN FEW WEEKS AND WAS SUBSEQUENTLY DISCHARGED TO HOME. HE HAS BEEN HOME FOR A COUPLE WEEKS NOW REPORTEDLY HAS BEEN IN USUAL STATE OF HEALTH. PATIENT APPEARED TO BE ENCEPHALOPATHIC WELL LETHARGIC AND UNABLE TO PROVIDE A RELIABLE REVIEW OF SYSTEM OR HISTORY. MOST OF THE HISTORY WAS TAKEN FROM HIS AT BEDSIDE AND ER WORKUP WITH HIS REPORTED FOR THE LAST 2 DAYS PATIENT HAS BEEN HAVING DECREASE IN URINATION. AND ALSO HE HAS NOT BEEN DRINKING FLUID USUAL SHE ALSO REPORTED INCREASED CONFUSION. ALSO PATIENT'S OXYGEN SATURATION HAS BEEN IN LOW SIDE TODAY PATIENT WENT TO THE BATHROOM AND SUDDENLY COULD NOT MOVE. HE COULD NOT GET OUT THE BATHROOM. HE FELT LIKE HE WAS GOING TO FALL. EMS WAS CALLED. AND PATIENT WAS TAKEN TO THE ER FOR FURTHER EVALUATION PATIENT DENIES ANY CHANGES TO HIS MEDICATION AND LAST 2 DAYS. NO REPORTED COUGH FEVER OR CHILLS. NO REPORTED SHORTNESS OF BREATH OR CHEST PAIN. NO OTHER COMPLAINTS Patient History Medical History Atrial fibrillation (Acute) COPD (chronic obstructive pulmonary disease) (Acute) Diastolic CHF (Acute) Anemia (Chronic) CAD (coronary artery disease), [place] coronary artery (Chronic) Diabetes mellitus (Chronic) GERD (gastroesophageal reflux disease) (Chronic) HLD (hyperlipidemia) (Chronic) HTN (hypertension) (Chronic) Surgical History H/O arthroscopic knee surgery (Acute) H/O rotator cuff surgery (Acute) History of back surgery (Acute) H/O abdominal surgery (Chronic) Family & Social History Family History: Reviewed 07/20/18 by Kierra Dsouza DO Social History: household members spouse Safety & Behavioral: Feels Safe in Current Yes Environment Tobacco & Substance use: Smoking Status Former smoker alcohol intake never Substance Use Type does not use Meds Home Medications Medication Instructions Recorded Confirmed Type albuterol sulfate [Ventolin HFA] 2 puff INH Q6HP PRN #0 puff 05/20/13 07/20/18 History lisinopril 5 mg PO BEDTIME #0 tab 05/20/13 07/20/18 History polyethylene glycol 3350 [Miralax] 17 gm PO QDAYP PRN #0 05/20/13 07/20/18 History gabapentin [Neurontin] 600 mg PO BEDTIME #0 09/05/17 07/20/18 History glimepiride 1 mg PO BIDCC #0 09/05/17 07/20/18 History acetaminophen 2 cap PO TID 06/07/18 07/20/18 History aspirin 81 mg PO 0630 06/07/18 07/20/18 History atorvastatin 1 tab PO BEDTIME 06/07/18 07/20/18 History beclomethasone dipropionate [Qvar 2 puff INHALATION BID PRN 06/07/18 07/20/18 History RediHaler] cholecalciferol (vitamin D3) 1,000 unit PO DAILY 06/07/18 07/20/18 History [Vitamin D3] docusate sodium 100 mg PO DAILY PRN 06/07/18 07/20/18 History doxazosin 8 mg PO 0630 06/07/18 07/20/18 History furosemide 40 mg PO 0630 06/07/18 07/20/18 History gabapentin 900 mg PO TID 06/07/18 07/20/18 History multivitamin 1 tab PO DAILY 06/07/18 07/20/18 History nitroglycerin 0.4 mg SUBLINGUAL Q5-15M PRN 06/07/18 07/20/18 History omega 2-wjz-gdh-fish oil [Fish Oil] 1 cap PO DAILY 06/07/18 07/20/18 History oxybutynin chloride 1 tab PO BID 06/07/18 07/20/18 History pantoprazole 20 mg PO QNOON 06/07/18 07/20/18 History propranolol 1 tab PO TID 06/07/18 07/20/18 History allopurinol 100 mg PO DAILYX7 07/20/18 07/20/18 History levothyroxine 100 mcg PO DAILY 07/20/18 07/20/18 History levothyroxine 200 mcg PO DAILY 07/20/18 07/20/18 History oxycodone 10 mg PO PRN PRN 07/20/18 07/20/18 History Allergies Allergy/AdvReac Type Severity Reaction Status Date / Time fentanyl [FENTANYL] Allergy Severe HIVES, Verified 06/07/18 14:48 ITCHING iodine [IODINE] Allergy Severe RASH - Verified 06/07/18 14:48 TOPICAL AND IV CONTRAST shellfish derived Allergy Severe Abdominal Verified 06/07/18 14:48 [SHELLFISH DERIVED] Pain cyclobenzaprine Allergy Intermediate ITCHING Verified 06/07/18 14:48 [CYCLOBENZAPRINE] diclofenac [DICLOFENAC] Allergy Intermediate ITCHING Verified 06/07/18 14:48 methadone [METHADONE] Allergy Intermediate ITCHING Verified 06/07/18 14:48 hydromorphone [HYDROMORPHONE] Allergy Mild ITCHING Verified 06/07/18 14:48 hydroxyzine [HYDROXYZINE] Allergy Mild FEVER, Verified 06/07/18 14:48 SWEATS ibuprofen [IBUPROFEN] Allergy Unknown Verified 06/07/18 14:48 aspirin [ASPIRIN] AdvReac Severe STOMACH Verified 06/07/18 14:48 PAIN & HIVE W/325MG, CAN TAKE 81 MG solifenacin [From [facility]] AdvReac Unknown INCREASE Verified 06/07/18 21:43 PVR AND URINARY SX RACHEL AdvReac Unknown DOES NOT Uncoded 11/25/17 12:09 WORK Review of Systems Review of Systems All systems reviewed & are unremarkable except as noted in HPI and below Exam Vital Signs (past 8 hours): - 07/20/18 11:45 07/20/18 11:56 07/20/18 13:30 Temperature 98.5 F Pulse Rate 59 L 53 L 54 L Respiratory Rate 20 23 24 Blood Pressure 101/65 Blood Pressure [Left Arm] 101/46 L Pulse Oximetry 96 84 L 91 07/20/18 16:06 07/20/18 17:03 Temperature Pulse Rate 74 Respiratory Rate 19 Blood Pressure 118/53 L Blood Pressure [Left Arm] Pulse Oximetry 92 94 Oxygen Delivery Method Nasal Cannula Oxygen Flow Rate 2 Narrative Exam Narrative: NO ACUTE DISTRESS. PATIENT IS LETHARGIC. AROUSABLE. CONFUSED. VITAL SIGNS STABLE HEAD ATRAUMATIC NORMOCEPHALIC NECK : SUPPLE WITHOUT ADENOPATHY NO CAROTID BRUITS EYE: EOMI, PERRLA, NORMAL CONJUNCTIVA; NO JAUNDICE CHEST: REGULAR RATE. NO RUBS. PMI IS NON DISPLACED; NORMAL S1-S2 PULMONARY: DECREASED BS OVER THE BASES. MILD BIBASILAR CRACKLES NOTED; NO INCREASED DULLNESS TO PERCUSSION; NO WHEEZING ABDOMEN: OBESE BUT SOFT. NONTENDER. NONDISTENDED. BOWEL SOUNDS ARE PRESENT IN ALL 4 QUADRANTS BUT HYPOACTIVE. NO MASS. EXTREMITIES: 3+ NONPITTING EDEMA.. NO CYANOSIS OR CLUBBING NOTED. NEURO: CRANIAL NERVES 2-12 GROSSLY INTACT. NO FOCAL NEUROLOGICAL DEFICIT NOTED. CONFUSED MSK: NORMAL RANGE OF MOTION FOR AGE. NO JOINT EFFUSION. SKIN: NORMAL FOR ETHNICITY; NO ECCHYMOSIS. NO LESION. GOOD TURGOR.; NO RASHES : NORMAL EXTERNAL GENITALIA. NO ABNORMAL ODOR OR DRAINAGE PSYCH : CALM. COOPERATIVE. BUT APPEAR CONFUSED. Objective Labs Result Diagrams: 07/20/18 13:25 07/20/18 13:25 Labs: Laboratory Results - last 24 hr 07/20/18 07/20/18 07/20/18 13:25 13:25 13:25 WBC 7.6 RBC 3.98 L Hgb 11.4 L Hct 36.0 L MCV 90.3 MCH 28.8 MCHC 31.8 RDW 17.8 H Plt Count 210 Neut % (Auto) 72.4 Lymph % (Auto) 17.2 L [place] % (Auto) 7.5 Eos % (Auto) 2.4 Baso % (Auto) 0.5 Neut # (Auto) 5500 PT 11.7 INR 1.1 APTT 32 Sodium Potassium Chloride Carbon Dioxide BUN Creatinine Estimated GFR BUN/Creatinine Ratio Glucose Lactate Calcium Total Bilirubin AST ALT Alkaline Phosphatase Total Creatine Kinase CK-MB (CK-2) CK-MB (CK-2) Rel Index Troponin I B-Natriuretic Peptide 98.0 Total Protein Albumin Globulin Albumin/Globulin Ratio Lipase Ur Random Sodium Ur Random Potassium Urine Creatinine 07/20/18 07/20/18 07/20/18 13:25 13:25 14:47 WBC RBC Hgb Hct MCV MCH MCHC RDW Plt Count Neut % (Auto) Lymph % (Auto) [place] % (Auto) Eos % (Auto) Baso % (Auto) Neut # (Auto) PT INR APTT Sodium 140 Potassium 6.1 H Chloride 100 Carbon Dioxide 32 BUN 49 H Creatinine 1.70 H Estimated GFR 39.7 L BUN/Creatinine Ratio 28.8 H Glucose 129 H Lactate 0.9 Calcium 8.5 Total Bilirubin 0.5 AST 12 L ALT 19 L Alkaline Phosphatase 62 Total Creatine Kinase < 20 L CK-MB (CK-2) TNP CK-MB (CK-2) Rel Index TNP Troponin I < 0.012 B-Natriuretic Peptide Total Protein 6.5 Albumin 3.6 Globulin 2.9 Albumin/Globulin Ratio 1.2 Lipase < 10 L Ur Random Sodium 73 Ur Random Potassium 21.0 Urine Creatinine 33.1 Assessment & Plan Plan: Assessment/Plan Narrative: IMPRESSION AND PLAN ACUTE METABOLIC ENCEPHALOPATHY. THIS IS MOST LIKELY RELATED TO ELECTROLYTE IMBALANCE AND RENAL FAILURE. THIS SHOULD RESOLVE WITH TREATMENT OF THE UNDERLYING CAUSE. NURSING TO REORIENT DICTATED. KEEP LIGHTS ON IN THE ROOM AT ALL TIMES. FALL AND ASPIRATION PRECAUTIONS POSSIBLE DEMENTIA WITH ACUTE EXACERBATION. SECONDARY TO ABOVE. TREATMENT ABOVE. ACUTE RENAL FAILURE. LAST CREATININE FROM HOSPITAL STAY WAS WITHIN NORMAL LIMITS. THIS IS MOST LIKELY PRERENAL AZOTEMIA POSSIBLY ASSOCIATED WITH HIS LASIX USE. WE WILL GENTLY REHYDRATE. AVOID ALL NEPHROTOXIN MEDICATIONS. DOSE ALL MEDICATIONS PER GFR. GET URINE ELECTROLYTES. CONSIDER KIDNEY ULTRASOUND INDICATED. STRICT I/O; DAILY WITH RECENT SCALE. AEIOU HYPERKALEMIA; THERE IS NO SIGN OF CARDIAC ARRHYTHMIA ON EKG RELATED TO ELECTROLYTE IMBALANCE; LIKELY RELATED TO RENAL FAILURE. KAYEXALATE WILL BE GIVEN TODAY. WILL REPEAT LABS IN THE MORNING. TREAT INDICATED GOUT PER HISTORY; RESTARTED PATIENT ON HOME MEDICATIONS. ALLOPURINOL. COPD PER HISTORY; NO SINUS SYMPTOMS OF ACUTE EXACERBATION. CONTINUE HOME MED. NEEDED MEDS WILL BE ADDED. ON OXYGEN ALL TIMES. CHEST X-RAY AND ABG INDICATED CAD PER HISTORY; KEEP ON TELE AT ALL TIME. RESTART ON HOME MEDICATIONS. EKG INDICATED. DIASTOLIC HEART FAILURE PER HISTORY; RESTRICT FLUID. STRICT I&OS. CONTINUE DIURETIC AT LOWER DOSE FOR NOW DUE TO RENAL FAILURE. KEEP ON TELE AT ALL TIMES; DAILY WEIGHT WITH SAME SCALE ANEMIA OF CHRONIC DISEASE PER HISTORY; DAILY LABS TO FOLLOW DIABETES TYPE 2 PER HISTORY; INSULIN SLIDING SCALE. RESTART ON HIS HOME MEDICATIONS. GERD PER HISTORY; ON PPI. HLD; HOME MEDS HYPERTENSION PER HISTORY; CLINITRON HOME AND NEEDED MEDS; ADJUST REGIMEN INDICATED MORBID OBESITY; OUTPATIENT MANAGEMENT. LIFESTYLE CHANGES RECOMMENDED DURATION OF THE STAY SHOULD BE BETWEEN 3-4 DAYS. TIME SPENT 45 MIN Time Spent With Patient Time with patient: Greater than 35 minutes
[2018-07-20] MEDS: GLIMEPIRIDE 2 MG TABLET 1 MG PO (17:33)
[2018-07-20 18:12] LABS: Uric Acid 11.8 mg/dL (3.5-8.5)
[2018-07-20 18:15] LABS: Creatine Kinase < 20 U/L (55-170)
--- NOTE | 2018-07-20 19:07 | PC.NURSE ---
Addendum entered by Km Montero R.N. 07/20/18 22:29: PATIENT IS NOW ON HIS HOME TRILOGY UNIT WITH 3L O2 BLEED IN SATS 94% Original Note: PATIENT IS ON CPAP 10L SATS 90-91%,RT WILL MONITOR
--- NOTE | 2018-07-20 20:45 | RT ---
PT APPEARS COMFORTABLE ON HOME TRILOGY W/ FULL-FACE MASK AND 3 LPM BLEED-IN O2. O2 SAT NOTED AT 94%.
[2018-07-20 21:07] LABS: Appearance Urine UA CLEAR; Bacteria Urine None Seen; Bilirubin Urine UA NEGATIVE (NEGATIVE); Color Urine UA YELLOW; Glucose Urine UA NEGATIVE (Normal); Ketones Urine UA NEGATIVE (NEGATIVE); Leukocyte Esterase Urine UA NEGATIVE (NEGATIVE); Nitrite Urine UA NEGATIVE (Negative); Occult Blood Urine UA NEGATIVE (Negative); Protein Urine UA NEGATIVE (Negative); RBC Urine None Seen (0-5/HPF); Urobilinogen Urine UA 0.2 E.U./dL (0.2); WBC Urine None Seen (0-5/HPF)
[2018-07-20] MEDS: HEPARIN 5,000 UNIT/ML VIAL 5000 UNIT SUBCUT (21:15)
[2018-07-20 21:25] LABS: Culture Indicated Urine Cult Not Indicated; Urine Comments Microscopic Normal
[2018-07-20] MEDS: SODIUM CHLORIDE 0.9% 1,000 ML 50 ML IV (23:55)
[2018-07-21] VITALS (15 sets, daily range): BP systolic 108–146; BP diastolic 52–60; PULSE 55–80; RESP 16–26; TEMP 37.1–37.7; O2SAT 89–96
--- NOTE | 2018-07-21 04:06 | PC.NURSE ---
Addendum entered by Nichole Beltre R.N. 07/21/18 05:50: MD called back and order obtained for tylenol NM for comfort. Original Note: Addendum entered by Nichole Beltre R.N. 07/21/18 05:05: Bed switched out to aid in position changes/pt comfort. Pt was incontinent of large BM. Appears uncomfortable w/ turning/cleaning. Able to say uh-huh when asked if he is in pain but unable to answer pain location, falling back asleep when asked. PO pain meds ordered but pt too somulent to take PO. Attempt to reach provider via cell number w/ out success. Essential tremors increased while awake/with movement. Original Note: Pt somulent t/o shift. Pt's own Trilogy bipap machine on w/ 3.5L O2 bled into line. RT up at start of shift to assess pt d/t frequent pulse ox alarm. RT changed O2 sat site to forehead to get more accurate reading and decreased O2 from 6L to 3.5L. Pt has temp of 99.1 and 99.2 and appears uncomfortable w/ turns. MD command and control officer called x2 w/ no answer, voicemail left on 2nd attempt. Attempting to request NM tylenol order as pt is too somulent for PO at this time.
[2018-07-21 05:57] LABS: Add Manual Diff / Slide Review NO; Basophils Percent Auto 0.5 % (0-2); Eosinophils Percent Auto 0.3 % (2-4); Hematocrit 36.9 % (41-53); Hemoglobin 11.9 g/dL (13.5-17.5); Mean Corpuscular HGB Conc 32.3 % (30-36); Mean Corpuscular Hemoglobin 28.9 PG (26-34); Mean Corpuscular Volume 89.6 fL (80-100); Monocytes Percent Auto 5.4 % (3-14); Neutrophils Absolute Auto 7200 /uL (3000-5900); Neutrophils Percent Auto 85.8 % (50-75); Platelet Count 188 X10^3/uL (150-400); Red Blood Cell Count 4.11 X10^6/uL (4.5-5.9); Red Cell Distribution Width 18.1 % (11.6-14.8); White Blood Cell Count 8.4 X10^3/uL (4.5-11.0)
[2018-07-21 06:10] LABS: Alanine Aminotransferase 24 IU/L (21-72); Albumin 3.3 g/dL (3.5-5.0); Albumin Globulin Ratio 1.1 (1.0-2.8); Alkaline Phosphatase 62 U/L (38-126); Aspartate Aminotransferase 13 IU/L (17-59); BUN Creatinine Ratio 34.5 (6-22); Bilirubin Total 0.6 mg/dL (0.2-1.3); Blood Urea Nitrogen 38 mg/dL (9-20); Calcium 8.9 mg/dL (8.4-10.2); Carbon Dioxide 33 mmol/L (22-32); Chloride 101 mmol/L (98-107); Estimated Glomerular Filt Rate > 60.0 mL/min (>60); Globulin 2.9 g/dL (1.7-4.1); Glucose 153 mg/dL (80-110); HEMOLYSIS < 15 (0-50); Magnesium 1.8 mg/dL (1.6-2.3); Phosphorous 3.6 mg/dL (2.3-3.7); Potassium 4.4 mmol/L (3.4-5.1); Sodium 144 mmol/L (137-145); Total Protein 6.2 g/dL (6.3-8.2)
[2018-07-21] MEDS: ACETAMINOPHEN 650 MG SUPP PR ×2 (06:32→14:51)
[2018-07-21 08:42] LABS: PCO2 ABG 48.5 mmHg (35-45); PO2 ABG 59 mmHg (80-100); pH ABG 7.48 (7.35-7.45)
[2018-07-21 08:43] LABS: Fractionated Inspired Oxygen 32; HCO3 ABG 36 mmol/L (22-26); Oxygen Saturation ABG 92 % (95-100); TCO2 ABG 37 mmol/L (21-31)
[2018-07-21] MEDS: INSULIN ASPART 100 UNIT/ML 10ML VIAL SUBCUT (10:35)
--- NOTE | 2018-07-21 10:39 | P.PN_ITS ---
Subjective Date Patient Seen: 07/21/18 Time Patient Seen: 07:10 Interval history: - IN BED WITH BIPAP ON - GESTURED NO CP/OR CHEST PALPITATIONS - NO SIGNIFICANT ISSUES OVERNIGHT Exam Vital Signs (past 8 hours): - 07/21/18 03:14 07/21/18 03:50 07/21/18 08:30 Temperature 99.3 F 98.7 F Pulse Rate 76 80 Respiratory Rate 16 19 Blood Pressure 108/52 L 132/54 L Pulse Oximetry 91 90 L 92 07/21/18 09:00 Temperature Pulse Rate Respiratory Rate Blood Pressure Pulse Oximetry 96 Fraction of Inspired Oxygen 32 Oxygen Delivery Method Nasal Cannula Oxygen Flow Rate 3 Narrative Exam Narrative: NO ACUTE DISTRESS. PATIENT IS LETHARGIC. AROUSABLE. CONFUSED. VITAL SIGNS STABLE HEAD ATRAUMATIC NORMOCEPHALIC NECK : SUPPLE WITHOUT ADENOPATHY NO CAROTID BRUITS EYE: EOMI, PERRLA, NORMAL CONJUNCTIVA; NO JAUNDICE CHEST: REGULAR RATE. NO RUBS. PMI IS NON DISPLACED; NORMAL S1-S2 PULMONARY: DECREASED BS OVER THE BASES. BIBASILAR AND DIFFUSED CRACKLES NOTED; NO INCREASED DULLNESS TO PERCUSSION; NO WHEEZING; ABDOMEN: OBESE BUT SOFT. NONTENDER. NONDISTENDED. BOWEL SOUNDS ARE PRESENT IN ALL 4 QUADRANTS BUT HYPOACTIVE. NO MASS. EXTREMITIES: 3+ NONPITTING EDEMA.. NO CYANOSIS OR CLUBBING NOTED. NEURO: CRANIAL NERVES 2-12 GROSSLY INTACT. NO FOCAL NEUROLOGICAL DEFICIT NOTED. CONFUSED MSK: NORMAL RANGE OF MOTION FOR AGE. NO JOINT EFFUSION. SKIN: NORMAL FOR ETHNICITY; NO ECCHYMOSIS. NO LESION. GOOD TURGOR.; NO RASHES : NORMAL EXTERNAL GENITALIA. NO ABNORMAL ODOR OR DRAINAGE PSYCH : CALM. COOPERATIVE. BUT APPEAR CONFUSED. Objective Labs Result Diagrams: 07/21/18 05:35 07/21/18 05:35 Labs: Laboratory Results - last 24 hr 07/20/18 07/20/18 07/20/18 13:25 13:25 13:25 WBC 7.6 RBC 3.98 L Hgb 11.4 L Hct 36.0 L MCV 90.3 MCH 28.8 MCHC 31.8 RDW 17.8 H Plt Count 210 Neut % (Auto) 72.4 Lymph % (Auto) 17.2 L [place] % (Auto) 7.5 Eos % (Auto) 2.4 Baso % (Auto) 0.5 Neut # (Auto) 5500 PT 11.7 INR 1.1 APTT 32 ABG pH ABG pCO2 ABG pO2 ABG HCO3 ABG Total CO2 ABG O2 Saturation ABG Base Excess FiO2 Sodium Potassium Chloride Carbon Dioxide BUN Creatinine Estimated GFR BUN/Creatinine Ratio Glucose Lactate Uric Acid Calcium Phosphorus Magnesium Total Bilirubin AST ALT Alkaline Phosphatase Total Creatine Kinase CK-MB (CK-2) CK-MB (CK-2) Rel Index Troponin I B-Natriuretic Peptide 98.0 Total Protein Albumin Globulin Albumin/Globulin Ratio Lipase Urine Color Urine Appearance Urine pH Ur Specific [place] Urine Protein Urine Glucose (UA) Urine Ketones Urine Occult Blood Urine Nitrate Urine Bilirubin Urine Urobilinogen Ur Leukocyte Esterase Urine RBC Urine WBC Urine Bacteria Ur Culture Indicated? Micro UA Comment Ur Random Sodium Ur Random Potassium Urine Creatinine 07/20/18 07/20/18 07/20/18 13:25 13:25 14:47 WBC RBC Hgb Hct MCV MCH MCHC RDW Plt Count Neut % (Auto) Lymph % (Auto) [place] % (Auto) Eos % (Auto) Baso % (Auto) Neut # (Auto) PT INR APTT ABG pH ABG pCO2 ABG pO2 ABG HCO3 ABG Total CO2 ABG O2 Saturation ABG Base Excess FiO2 Sodium 140 Potassium 6.1 H Chloride 100 Carbon Dioxide 32 BUN 49 H Creatinine 1.70 H Estimated GFR 39.7 L BUN/Creatinine Ratio 28.8 H Glucose 129 H Lactate 0.9 Uric Acid Calcium 8.5 Phosphorus Magnesium Total Bilirubin 0.5 AST 12 L ALT 19 L Alkaline Phosphatase 62 Total Creatine Kinase < 20 L CK-MB (CK-2) TNP CK-MB (CK-2) Rel Index TNP Troponin I < 0.012 B-Natriuretic Peptide Total Protein 6.5 Albumin 3.6 Globulin 2.9 Albumin/Globulin Ratio 1.2 Lipase < 10 L Urine Color Urine Appearance Urine pH Ur Specific [place] Urine Protein Urine Glucose (UA) Urine Ketones Urine Occult Blood Urine Nitrate Urine Bilirubin Urine Urobilinogen Ur Leukocyte Esterase Urine RBC Urine WBC Urine Bacteria Ur Culture Indicated? Micro UA Comment Ur Random Sodium 73 Ur Random Potassium 21.0 Urine Creatinine 33.1 07/20/18 07/20/18 07/21/18 17:40 21:05 05:35 WBC 8.4 RBC 4.11 L Hgb 11.9 L Hct 36.9 L MCV 89.6 MCH 28.9 MCHC 32.3 RDW 18.1 H Plt Count 188 Neut % (Auto) 85.8 H Lymph % (Auto) 8.0 L [place] % (Auto) 5.4 Eos % (Auto) 0.3 L Baso % (Auto) 0.5 Neut # (Auto) 7200 H PT INR APTT ABG pH ABG pCO2 ABG pO2 ABG HCO3 ABG Total CO2 ABG O2 Saturation ABG Base Excess FiO2 Sodium Potassium Chloride Carbon Dioxide BUN Creatinine Estimated GFR BUN/Creatinine Ratio Glucose Lactate Uric Acid 11.8 H Calcium Phosphorus Magnesium Total Bilirubin AST ALT Alkaline Phosphatase Total Creatine Kinase < 20 L CK-MB (CK-2) CK-MB (CK-2) Rel Index Troponin I B-Natriuretic Peptide Total Protein Albumin Globulin Albumin/Globulin Ratio Lipase Urine Color Yellow Urine Appearance Clear Urine pH 5.0 Ur Specific [place] 1.010 Urine Protein Negative Urine Glucose (UA) Negative Urine Ketones Negative Urine Occult Blood Negative Urine Nitrate Negative Urine Bilirubin Negative Urine Urobilinogen 0.2 Ur Leukocyte Esterase Negative Urine RBC None seen Urine WBC None seen Urine Bacteria None seen Ur Culture Indicated? Cult not indicated Micro UA Comment Microscopic normal Ur Random Sodium Ur Random Potassium Urine Creatinine 07/21/18 07/21/18 05:35 08:32 WBC RBC Hgb Hct MCV MCH MCHC RDW Plt Count Neut % (Auto) Lymph % (Auto) [place] % (Auto) Eos % (Auto) Baso % (Auto) Neut # (Auto) PT INR APTT ABG pH 7.48 H ABG pCO2 48.5 H ABG pO2 59 L ABG HCO3 36 H ABG Total CO2 37 H ABG O2 Saturation 92 L ABG Base Excess 12.0 H FiO2 32 Sodium 144 Potassium 4.4 D Chloride 101 Carbon Dioxide 33 H BUN 38 H Creatinine 1.10 Estimated GFR > 60.0 BUN/Creatinine Ratio 34.5 H Glucose 153 H Lactate Uric Acid Calcium 8.9 Phosphorus 3.6 Magnesium 1.8 Total Bilirubin 0.6 AST 13 L ALT 24 Alkaline Phosphatase 62 Total Creatine Kinase CK-MB (CK-2) CK-MB (CK-2) Rel Index Troponin I B-Natriuretic Peptide Total Protein 6.2 L Albumin 3.3 L Globulin 2.9 Albumin/Globulin Ratio 1.1 Lipase Urine Color Urine Appearance Urine pH Ur Specific [place] Urine Protein Urine Glucose (UA) Urine Ketones Urine Occult Blood Urine Nitrate Urine Bilirubin Urine Urobilinogen Ur Leukocyte Esterase Urine RBC Urine WBC Urine Bacteria Ur Culture Indicated? Micro UA Comment Ur Random Sodium Ur Random Potassium Urine Creatinine Assessment & Plan Plan: Assessment/Plan Narrative: IMPRESSION AND PLAN ACUTE METABOLIC ENCEPHALOPATHY. PERSIST THIS AM; THIS IS MOST LIKELY RELATED TO ELECTROLYTE IMBALANCE AND RENAL / CONGESTIVE FAILURE. THIS SHOULD RESOLVE WITH TREATMENT OF THE UNDERLYING CAUSE. NURSING TO REORIENT DICTATED. KEEP LIGHTS ON IN THE ROOM AT ALL TIMES. FALL AND ASPIRATION PRECAUTIONS POSSIBLE DEMENTIA WITH ACUTE EXACERBATION. SECONDARY TO ABOVE. TREATMENT ABOVE. POSS ACUTE ON CHRONIC DIASTOLIC HF; CONT WITH IV LASIX FOR NOW; DAILY WT WITH SAME SCALE; RESTRICT FLUIDS; TELE AT ALL TIMES; CARDIAC LOW SALT DIET. MONITOR CLOSELY ACUTE RENAL FAILURE. RESOLVING; THIS IS MOST LIKELY PRERENAL AZOTEMIA; CONT WITH GENTLE REHYDRATION. AVOID ALL NEPHROTOXIN MEDICATIONS. DOSE ALL MEDICATIONS PER GFR. CONSIDER KIDNEY ULTRASOUND INDICATED. STRICT I/O; DAILY WT WITH SAME SCALE. AEIOU HYPERKALEMIA; RESOLVED; TREAT INDICATED GOUT PER HISTORY; RESTARTED PATIENT ON HOME MEDICATIONS. ON ALLOPURINOL. COPD PER HISTORY; NO SIGNS/ SYMPTOMS OF ACUTE EXACERBATION. CONTINUE HOME MED. ON OXYGEN ALL TIMES TO MAINTAIN SAT >88%. CHEST X-RAY AND ABG INDICATED CAD PER HISTORY; KEEP ON TELE AT ALL TIME. RESTART ON HOME MEDICATIONS. EKG INDICATED. ANEMIA OF CHRONIC DISEASE PER HISTORY; DAILY LABS TO FOLLOW DIABETES TYPE 2 PER HISTORY; INSULIN SLIDING SCALE. RESTART ON HIS HOME MEDICATIONS. GERD PER HISTORY; ON PPI. HLD; HOME MEDS HYPERTENSION PER HISTORY; CLINITRON HOME AND NEEDED MEDS; ADJUST REGIMEN INDICATED MORBID OBESITY; OUTPATIENT MANAGEMENT. LIFESTYLE CHANGES RECOMMENDED OBESITY HYPERV SYNDROME PER HX; BIPAP WHILE ASLEEP. SERIAL ABG TO FOLLOW DC PER CLINICAL MIGHT NEED SNFON DISPOSITION PT/OT FOLLOW CLOSELY Quality VTE Deep Vein Thrombosis/Pulmonary Embolism Present on Admission: No
[2018-07-21] MEDS: HEPARIN 5,000 UNIT/ML VIAL 5000 UNIT SUBCUT ×2 (10:40→22:43)
[2018-07-21] MEDS: FUROSEMIDE 20 MG/2 ML VIAL IV (12:54)
--- NOTE | 2018-07-21 13:13 | PT.IIE ---
Current Diagnoses Metabolic encephalopathy (07/20/18) Surgical History (Last Reviewed 07/20/18 @ 17:11 by Kierra Dsouza DO) H/O arthroscopic knee surgery (Acute) H/O rotator cuff surgery (Acute) History of back surgery (Acute) H/O abdominal surgery (Chronic) Medical History (Last Updated 07/20/18 @ 17:26 by Ainsley Rader RN) Cognitive impairment, mild, so stated (Acute) Constipation (Acute) Essential tremor (Acute) Gout (Acute) Low back pain (Acute) Atrial fibrillation (Acute) COPD (chronic obstructive pulmonary disease) (Acute) Diastolic CHF (Acute) Anemia (Chronic) CAD (coronary artery disease), [place] coronary artery (Chronic) Diabetes mellitus (Chronic) GERD (gastroesophageal reflux disease) (Chronic) HLD (hyperlipidemia) (Chronic) HTN (hypertension) (Chronic) Physical Therapy Inpatient Evaluation/Re-Eval M3 PT-IP Subjective Start: 07/21/18 12:34 Freq: NEEDED Status: Active Protocol: Document 07/21/18 12:15 (Rec: 07/21/18 12:51 [id number]) Subjective Physical Therapy Visit Type Type Administrative Note Visit Start Time 12:15 Notes Attempt PT with OT in pt's room today. Patient remains minimally responsive to verbal cues and no response to tactile cues. Pt mentioned Leave me alone x 3 when he was asked for the need of therapy service. Pt's vital signs maintain stable during assessment, HR =99 SpO2 = 90- 92%. Will re-attmept PT tomorrow preferrably with his at the same time.
--- NOTE | 2018-07-21 13:48 | DIET.PN ---
Admit today. Received consult request r/t high risk for nutritional compromise and skin breakdown. Tried to visit at lunchtime. Per RN pt unresponsive now. Diet: Heart healthy - just changed to NPO DX: CHF-diastolic HX: DM CAD, COPD MNA: 11 - mild risk pcm - Wt stable BMI: 40 Morbidly obese Assessment: Unable to complete nutrition assessment r/t unresponsiveness Will f/u when more alert
--- NOTE | 2018-07-21 16:08 | PC.NURSE ---
Day Shift-Pt somnolent throughout shift, not able to have verbal response or open eyes for this music writer, according to PT, pt was able to briefly open eyes. At end of shift, pt was able to respond to his Kathy's verbal commands. when asked if her was having pain, pt states yes, all over. Tylenol supp given at 1450. pt had 2 large soft inc BM's. Pt has generalized edema, tightness to BLE and abd. repositioned in bed supported with pillows. Update given to pt's over phone at 0830 and again when pt was in room around 1345. Pt removed from Trilogy at 1045 and placed on 3.5L NC. According to Dr Mancini. goal 88-92%. Pt weaned to 2L NC, on continuous O2 monitoring. 89-95% on 2l NC. Blood glucose finger sticks changed to Q6hr as pt is somnolent, done at 1035 was 145, next 1700, to get pt on track for 2400/0600/1200/1800 checks. New order for nystatin powder rec'd for pt's groin is moist, pink/red, odorous, skin intact to groin area.
--- NOTE | 2018-07-21 16:08 | CM.DANOTE ---
DCP/Brief Assessment: Reviewed chart. Patient is a 73yr old male admitted [facility] with increased weakness/fever. PCP is Dr. Jarrell. Primary payor is 1)[employer]. Attempted to meet with patient this AM. Patient alseep at time of visit and spouse not expected to be here to this afternoon. Briefly ran into spouse while patient being brought to room on 07-20-18. Spouse remembered this VIDEO GAME TECHNICIAN from previous visit(s). PT/OT evaluations pending today. reports that it is highly likely that patient will need SNF when stable. P: CM team to follow up with patient and spouse once therapy recommendations made. Provided UNISAW OPERATOR with CM manufacturing team member card to follow up. DARIEL Mcclain Discharge Planning/Care Management Discharge Assessment Start: 07/21/18 16:05 Freq: Status: Active Protocol: Document 07/21/18 16:05 [facility] (Rec: 07/21/18 16:08 [facility] [id number]) Discharge Planning Assessment Assigned College Intern DARIEL Mcclain Contact Information Kathy Denton (spouse) [phone] Advance Directives? No Advance Directives on File Yes History Provided By Medical Record Prior Living Arrangements Mobile home Household Members spouse Discharge Plan Home Transportation Arrangement Spouse Additional Comment reports that patient most likely will need SNF upon d/c from [facility]. PT/OT evaluations pending. Review Status In Process Please Provide Date Initial DC 07/21/18 Assessment Was Performed Next Review Type Continued Stay Review
--- NOTE | 2018-07-21 16:56 | PT.IPTN ---
Current Diagnoses Metabolic encephalopathy (07/20/18) Physical Therapy Treatment Note M3 PT-IP Subjective Start: 07/21/18 12:34 Freq: NEEDED Status: Active Protocol: Document 07/21/18 16:55 AB (Rec: 07/21/18 16:56 AB [id number]) Subjective Physical Therapy Visit Type Type Patient Refusal Notes checked on pt and pt refused PT. stated that he does not want to get out of bed. stated that he just does not want to. educated pt on importance of PT and pt agreed to get up tomorrow morning. will f/u.
[2018-07-21] MEDS: GLIMEPIRIDE 2 MG TABLET 1 MG PO (17:08)
[2018-07-21] MEDS: GABAPENTIN 300 MG CAPSULE 900 MG PO ×2 (17:09→22:13)
[2018-07-21] MEDS: NYSTATIN POWDER 30 GM 1 APPLIC TOP ×2 (17:09→22:13)
[2018-07-21] MEDS: PANTOPRAZOLE 40 MG VIAL 20 MG IV (17:09)
[2018-07-21] MEDS: SODIUM CHLORIDE 0.9% 1,000 ML 50 ML IV (19:23)
[2018-07-21] MEDS: PROPRANOLOL ER 60 MG CAPSULE PO (20:04)
[2018-07-21] MEDS: OXYBUTYNIN 5 MG TABLET PO (22:14)
[2018-07-21] MEDS: ATORVASTATIN 20 MG TABLET 40 MG PO (22:15)
[2018-07-22] VITALS (13 sets, daily range): BP systolic 113–142; BP diastolic 48–89; PULSE 42–75; RESP 17–20; TEMP 36.6–37.2; O2SAT 86–95
--- NOTE | 2018-07-22 | DI.RAD.S_ITS ---
PROCEDURE: XR CHEST 1V INDICATIONS: CONGESTIVE FAILURE TECHNIQUE: One view of the chest was acquired. COMPARISON: [facility], CR, XR CHEST 1V, 06/13/2018, 4:39. [facility], CR, XR CHEST 1V, 07/20/2018, 11:52. FINDINGS: Surgical changes and devices: Spinal fusion. Lungs and pleura: Bilateral interstitial infiltrates consistent with congestive heart failure. No pleural effusions or pneumothorax. No focal consolidation or large pleural effusion. Mediastinum: Mediastinal contours appear normal. Heart size is mildly increased. Bones and chest wall: No suspicious bony lesions. Overlying soft tissues appear unremarkable. IMPRESSION: Congestive heart failure. Dictated by: Jim Rodriguez M.D. on 07/22/2018 at 12:27 Approved by: Jim Rodriguez M.D. on 07/22/2018 at 12:30
[2018-07-22] MEDS: ACETAMINOPHEN 650 MG SUPP PR (06:05)
[2018-07-22 07:08] LABS: Add Manual Diff / Slide Review NO; Basophils Percent Auto 0.5 % (0-2); Eosinophils Percent Auto 0.4 % (2-4); Hematocrit 37.7 % (41-53); Lymphocytes Percent Auto 23.5 % (25-40); Mean Corpuscular HGB Conc 31.9 % (30-36); Mean Corpuscular Hemoglobin 28.4 PG (26-34); Mean Corpuscular Volume 89.3 fL (80-100); Monocytes Percent Auto 11.8 % (3-14); Neutrophils Absolute Auto 5200 /uL (3000-5900); Neutrophils Percent Auto 63.8 % (50-75); Platelet Count 205 X10^3/uL (150-400); Red Blood Cell Count 4.23 X10^6/uL (4.5-5.9); Red Cell Distribution Width 18.9 % (11.6-14.8); White Blood Cell Count 8.1 X10^3/uL (4.5-11.0)
[2018-07-22 07:21] LABS: Alanine Aminotransferase 22 IU/L (21-72); Albumin 3.3 g/dL (3.5-5.0); Albumin Globulin Ratio 1.1 (1.0-2.8); Alkaline Phosphatase 59 U/L (38-126); Aspartate Aminotransferase 15 IU/L (17-59); BUN Creatinine Ratio 26.7 (6-22); Bilirubin Total 0.9 mg/dL (0.2-1.3); Blood Urea Nitrogen 24 mg/dL (9-20); Calcium 8.9 mg/dL (8.4-10.2); Carbon Dioxide 36 mmol/L (22-32); Chloride 101 mmol/L (98-107); Estimated Glomerular Filt Rate > 60.0 mL/min (>60); Globulin 2.9 g/dL (1.7-4.1); Glucose 117 mg/dL (80-110); HEMOLYSIS < 15 (0-50); Magnesium 1.7 mg/dL (1.6-2.3); Phosphorous 3.1 mg/dL (2.3-3.7); Potassium 3.7 mmol/L (3.4-5.1); Sodium 143 mmol/L (137-145); Total Protein 6.2 g/dL (6.3-8.2)
--- NOTE | 2018-07-22 07:26 | PC.NURSE ---
pt alert and oriented to self. pt thinks he is [facility] and year 1899. pt used his bibpap all night, sats around 89-93% with 3L. pt refused his aspirin and doxizosin. pt agreed to take tylenol. In RA pt sating 94%. safety checks. call light in reach.
[2018-07-22] MEDS: FUROSEMIDE 20 MG/2 ML VIAL IV (08:40)
[2018-07-22] MEDS: HEPARIN 5,000 UNIT/ML VIAL 5000 UNIT SUBCUT ×2 (08:45→20:31)
[2018-07-22] MEDS: GLIMEPIRIDE 2 MG TABLET 1 MG PO ×2 (08:47→16:57)
[2018-07-22] MEDS: CHOLECALCIFEROL (VITAMIN D3) 1,000 UNIT TABLET 1000 UNIT PO (08:48)
[2018-07-22] MEDS: ALLOPURINOL 100 MG TABLET PO (08:48)
[2018-07-22] MEDS: GABAPENTIN 300 MG CAPSULE 900 MG PO ×3 (08:49→20:40)
[2018-07-22] MEDS: LEVOTHYROXINE 100 MCG TABLET PO (08:50)
[2018-07-22] MEDS: LEVOTHYROXINE 100 MCG TABLET 200 MCG PO (08:51)
[2018-07-22] MEDS: FISH OIL 1,000 MG CAPSULE 1000 MG PO (08:51)
[2018-07-22] MEDS: MULTIVITAMIN 1 TABLET 1 TAB PO (08:51)
[2018-07-22] MEDS: PROPRANOLOL ER 60 MG CAPSULE PO ×3 (08:52→20:30)
[2018-07-22] MEDS: OXYBUTYNIN 5 MG TABLET PO (08:52)
[2018-07-22] MEDS: NYSTATIN POWDER 30 GM 1 APPLIC TOP ×2 (10:30→20:29)
--- NOTE | 2018-07-22 11:34 | PT.IIE ---
Current Diagnoses Metabolic encephalopathy (07/20/18) Surgical History (Last Reviewed 07/20/18 @ 17:11 by Kierra Dsouza DO) H/O arthroscopic knee surgery (Acute) H/O rotator cuff surgery (Acute) History of back surgery (Acute) H/O abdominal surgery (Chronic) Medical History (Last Updated 07/20/18 @ 17:26 by Ainsley Rader RN) Cognitive impairment, mild, so stated (Acute) Constipation (Acute) Essential tremor (Acute) Gout (Acute) Low back pain (Acute) Atrial fibrillation (Acute) COPD (chronic obstructive pulmonary disease) (Acute) Diastolic CHF (Acute) Anemia (Chronic) CAD (coronary artery disease), [place] coronary artery (Chronic) Diabetes mellitus (Chronic) GERD (gastroesophageal reflux disease) (Chronic) HLD (hyperlipidemia) (Chronic) HTN (hypertension) (Chronic) Physical Therapy Inpatient Evaluation/Re-Eval M1 PT/OT-IP Prior Functional Status Start: 07/21/18 12:34 Freq: NEEDED Status: Active Protocol: Document 07/22/18 11:34 AB (Rec: 07/22/18 13:23 AB [id number]) Medical Review Prior Functional Status Medical History Reviewed Yes Communication able to make needs known Mobility and Gait pt stated that he is modified independent with all mobilities and ambulation using FWW outdoors and SPC indoors but occasionally also uses FWW indoors depending on how he feels. Social History Household Members spouse Living Arrangements Mobile home Number of Floors (Floors) One Floor Number of Stairs To Enter/Railing? 3 steps to enter from the front with bilateral rails; 3 steps from the back with R rail ascending (pt usually uses this side) Home Environment High Toilet Tub/Shower Home Equipment Shower Seat with Backrest Hand Held Shower Grab Bars Near Toilet Grab Bars In Shower Employment Status Retired M2 PT-IP Current Condition Start: 07/21/18 12:34 Freq: NEEDED Status: Active Protocol: Document 07/22/18 11:34 AB (Rec: 07/22/18 13:23 AB [id number]) Physical Therapy Current Condition Current Condition Evaluation Date 07/22/18 Treatment Diagnosis weakness; acute hyperkalemia; difficulty in walking Onset Date 07/20/18 Precautions Other Precautions O2 sat; IL M3 PT-IP Subjective Start: 07/21/18 12:34 Freq: NEEDED Status: Active Protocol: Document 07/22/18 11:34 AB (Rec: 07/22/18 13:23 AB [id number]) Subjective Physical Therapy Visit Type Type Initial Evaluation Visit Start Time 11:34 Visit Stop Time 12:10 Total Visit Minutes 36 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 of 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 0 Physical Therapy Visit Comments Patient Comments pt agreeable to get up Therapy Pain Assessment Pain When Pain Assessed At Rest Location Bilateral Leg Intensity 5 Scale Used Numeric (1 - 10) Description Chronic Back Intensity 6 Scale Used Numeric (1 - 10) Description Chronic M4 PT-IP Mobility and Gait Start: 07/21/18 12:34 Freq: NEEDED Status: Active Protocol: Document 07/22/18 11:34 AB (Rec: 07/22/18 13:23 AB [id number]) PT-Bed Mobility Assessment Supine to Sit Supine to Sit Maximum Assistance 1 Person Assistance Scooting Scooting to Edge of Bed Moderate Assistance PT-Transfer Assessment Sit to and From Stand Sit to and from Stand Contact Guard Assistance Equipment Transfer Assistive Device Gait Belt Front Wheeled Walker Orthotic/Prosthetic Devices or Brace: No Comments Mobility Comments (+) B knee crepitus with sit < > stand Gait Assessment Gait Gait Assistance Required: Contact Guard Assist Distance (Feet) 30 Able to Maintain Weight Bearing Status Yes During Gait Assistive Devices Assistive Device Gait Belt Front Wheeled Walker Orthotic/Prosthetic Devices or Brace: No Gait Deviations General Gait Pattern Antalgic Decreased Stride Length Decreased Feet Clearance Factors Limiting Gait Function Factors Limiting Gait Function Decreased Activity Tolerance Decreased Strength Pain Poor Balance Comments Gait Comments vitals prior to mobilization: BP 128/65 O2 sat 96% IL 55 . Pt with (+) SOB during mobility. O2 sat decreases to 82% and cued for deep breathing and O2 sat increases to 88%. IL with variable readings: 38 to 212. informed nurse and stated that pt is monitored with telemetry. PT-Balance Assessment Sitting Balance and Reactions Static Sitting Balance Ability Good Dynamic Sitting Balance Ability Fair Standing Balance and Reactions Static Standing Balance Ability Fair Dynamic Standing Balance Ability Fair Device Used using FWW M5 PT-IP Objective Assessments Start: 07/21/18 12:34 Freq: NEEDED Status: Active Protocol: Document 07/22/18 11:34 AB (Rec: 07/22/18 13:23 AB [id number]) Orientation Orientation/Cognition Level of Alertness Alert Orientation Name Age Birthday Month Date Year Day of Week Place Situation Strength Lower Extremity Strength Assessment Bilaterally Impaired Hip 4-/5 Knee 4-/5 Ankle 4-/5 Muscle Tone Muscle Tone WNL No M6 PT-IP Treatment Start: 07/21/18 12:34 Freq: NEEDED Status: Active Protocol: Document 07/22/18 11:34 AB (Rec: 07/22/18 13:23 AB [id number]) Physical Therapy Treatment Education Education Provided Safety M7 PT-IP Assessment and Plan Start: 07/21/18 12:34 Freq: NEEDED Status: Active Protocol: Document 07/22/18 11:34 AB (Rec: 07/22/18 13:23 AB [id number]) PT Summary Assessment and Plan Potential Rehabilitation Potential Good Status of Condition at Evaluation Evolving Summary Impairments Pain ROM Strength Balance Coordination Sensation Tone Cognition Bed Mobility Transfers Gait Activity Tolerance Assessment Summary pt requiring max A with bed mobility and SBA with ambulation using FWW. pt presents with decrease activity tolerance with decrease in O2 sat with activity. d/c plan depending on progress. pt plans to go home with spouse to assist him . Goals Bed Mobility Goal Standby Assistance Transfer Goal Independent Front Wheeled Walker Gait Goal Independent Front Wheel Walker Gait Distance 75 Days to Meet Goals 5 Frequency of Treatment Frequency Of Treatment Once a Day Treatment Plan Physical Therapy Treatment Plan Bed Mobility Training Transfer Training Gait Training Therapeutic Exercise Balance Retraining Discharge Planning Hot or Cold Pack Neuromuscular Re-ed Coordination Retraining Manual Therapy Recommendations To Nursing Amount of Assist Needed Standby Assistance Discharge Recommendations PT Discharge Recommendations Home with Assistance Outpatient PT Other Discharge Recommendations cardiopulmonary rehab
[2018-07-22] MEDS: INSULIN ASPART 100 UNIT/ML INSULN PEN SUBCUT (12:27)
--- NOTE | 2018-07-22 13:22 | PM.PN.1 ---
Subjective Date Patient Seen: 07/22/18 Time Patient Seen: 13:22 Interval history: PATIENT IS MORE ALERT AND AWAKE TODAY HE DENIED ANY CP/SOB HE STATED THAT THOSE SLEEPING SPELLS HAPPEN TO HIM EVERY SO OFTEN NO OTHER COMPLAINTS TODAY Exam Vital Signs (past 8 hours): - 07/22/18 06:05 07/22/18 06:18 07/22/18 08:10 Temperature Pulse Rate 68 Respiratory Rate Blood Pressure 142/89 H Pulse Oximetry 90 L 95 07/22/18 08:35 07/22/18 09:00 07/22/18 11:45 Temperature 98.8 F 98.7 F Pulse Rate 42 L 71 Respiratory Rate 19 18 Blood Pressure 134/60 113/60 Pulse Oximetry 93 93 92 Fraction of Inspired Oxygen 21 Oxygen Delivery Method Room Air Oxygen Flow Rate 0 Narrative Exam Narrative: NO ACUTE DISTRESS. AAOX3 VITAL SIGNS STABLE HEAD ATRAUMATIC NORMOCEPHALIC NECK : SUPPLE WITHOUT ADENOPATHY NO CAROTID BRUITS EYE: EOMI, PERRLA, NORMAL CONJUNCTIVA; NO JAUNDICE CHEST: REGULAR RATE. NO RUBS. PMI IS NON DISPLACED; NORMAL S1-S2 PULMONARY: DECREASED BS OVER THE BASES. BIBASILAR AND DIFFUSED CRACKLES NOTED; NO INCREASED DULLNESS TO PERCUSSION; NO WHEEZING; ABDOMEN: OBESE BUT SOFT. NONTENDER. NONDISTENDED. BOWEL SOUNDS ARE PRESENT IN ALL 4 QUADRANTS BUT HYPOACTIVE. NO MASS. EXTREMITIES: 3+ NONPITTING EDEMA.. NO CYANOSIS OR CLUBBING NOTED. NEURO: CRANIAL NERVES 2-12 GROSSLY INTACT. NO FOCAL NEUROLOGICAL DEFICIT NOTED. CONFUSED MSK: NORMAL RANGE OF MOTION FOR AGE. NO JOINT EFFUSION. SKIN: NORMAL FOR ETHNICITY; NO ECCHYMOSIS. NO LESION. GOOD TURGOR.; NO RASHES : NORMAL EXTERNAL GENITALIA. NO ABNORMAL ODOR OR DRAINAGE PSYCH : CALM. COOPERATIVE. AAOX3 Objective Labs Result Diagrams: 07/22/18 06:40 07/22/18 06:40 Labs: Laboratory Results - last 24 hr 07/22/18 07/22/18 06:40 06:40 WBC 8.1 RBC 4.23 L Hgb 12.0 L Hct 37.7 L MCV 89.3 MCH 28.4 MCHC 31.9 RDW 18.9 H Plt Count 205 Neut % (Auto) 63.8 D Lymph % (Auto) 23.5 L [place] % (Auto) 11.8 Eos % (Auto) 0.4 L Baso % (Auto) 0.5 Neut # (Auto) 5200 Sodium 143 Potassium 3.7 Chloride 101 Carbon Dioxide 36 H BUN 24 H Creatinine 0.90 Estimated GFR > 60.0 BUN/Creatinine Ratio 26.7 H Glucose 117 H Calcium 8.9 Phosphorus 3.1 Magnesium 1.7 Total Bilirubin 0.9 AST 15 L ALT 22 Alkaline Phosphatase 59 Total Protein 6.2 L Albumin 3.3 L Globulin 2.9 Albumin/Globulin Ratio 1.1 Assessment & Plan Plan: Assessment/Plan Narrative: IMPRESSION AND PLAN ACUTE METABOLIC ENCEPHALOPATHY. APPEARS RESOLVED THIS AM; COULD HAVE BEEN DUE TO ACUTE CONDITION VS MEDS S/E SUCH GABAPENTIN. . NURSING TO REORIENT DICTATED. KEEP LIGHTS ON IN THE ROOM AT ALL TIMES. FALL AND ASPIRATION PRECAUTIONS POSSIBLE DEMENTIA WITH ACUTE EXACERBATION. APPEARS BACK AT BASELINE; FALL AND ASPIR PRECAUTIONS; RE-ORIENT INDICATED POSS ACUTE ON CHRONIC DIASTOLIC HF; CONT WITH IV LASIX FOR NOW; DAILY WT WITH SAME SCALE; RESTRICT FLUIDS; TELE AT ALL TIMES; CARDIAC LOW SALT DIET. MONITOR CLOSELY; I/O WITH NEG FLUID BALANCE ACUTE RENAL FAILURE. RESOLVING; THIS WAS MOST LIKELY PRERENAL AZOTEMIA; AVOID ALL NEPHROTOXIN MEDICATIONS. DOSE ALL MEDICATIONS PER GFR. CONSIDER KIDNEY ULTRASOUND INDICATED. STRICT I/O; DAILY WT WITH SAME SCALE. AEIOU HYPERKALEMIA; RESOLVED; TREAT INDICATED GOUT PER HISTORY; RESTARTED PATIENT ON HOME MEDICATIONS. ON ALLOPURINOL. COPD PER HISTORY; NO SIGNS/ SYMPTOMS OF ACUTE EXACERBATION. CONTINUE HOME MED. ON OXYGEN ALL TIMES TO MAINTAIN SAT >88%. CHEST X-RAY AND ABG INDICATED CAD PER HISTORY; KEEP ON TELE AT ALL TIME. RESTART ON HOME MEDICATIONS. EKG INDICATED. ANEMIA OF CHRONIC DISEASE PER HISTORY; DAILY LABS TO FOLLOW DIABETES TYPE 2 PER HISTORY; INSULIN SLIDING SCALE. RESTART ON HIS HOME MEDICATIONS. GERD PER HISTORY; ON PPI. HLD; HOME MEDS HYPERTENSION PER HISTORY; [place] HOME AND NEEDED MEDS; ADJUST REGIMEN INDICATED MORBID OBESITY; OUTPATIENT MANAGEMENT. LIFESTYLE CHANGES RECOMMENDED OBESITY HYPERV SYNDROME PER HX; BIPAP WHILE ASLEEP. SERIAL ABG TO FOLLOW DC PER CLINICAL MIGHT NEED SNF ON DISPOSITION PT/OT FOLLOW CLOSELY POSS DC IN NEXT 24-48 HRS IF STABLE CLINICALLY Quality VTE Deep Vein Thrombosis/Pulmonary Embolism Present on Admission: No
--- NOTE | 2018-07-22 14:01 | CM.DPC ---
Facesheet faxed to [facility] for referral per Jolynn
--- NOTE | 2018-07-22 14:17 | DIET.PN ---
More alert today. Looks better. Visited at lunch; ate all meal. DX: CHF Intervention: Encourage PO intake w/ adequate nutrients; emphasis on protein foods vs non-nutritive calorie choices. Plan: Will monitor PO intake
--- NOTE | 2018-07-22 14:38 | OT.IP.EVAL ---
Current Diagnoses Metabolic encephalopathy (07/20/18) Past Medical History (Last Updated 07/20/18 @ 17:26 by Ainsley Rader RN) Cognitive impairment, mild, so stated (Acute) Constipation (Acute) Essential tremor (Acute) Gout (Acute) Low back pain (Acute) Atrial fibrillation (Acute) COPD (chronic obstructive pulmonary disease) (Acute) Diastolic CHF (Acute) Anemia (Chronic) CAD (coronary artery disease), [place] coronary artery (Chronic) Diabetes mellitus (Chronic) GERD (gastroesophageal reflux disease) (Chronic) HLD (hyperlipidemia) (Chronic) HTN (hypertension) (Chronic) Surgical History (Last Reviewed 07/20/18 @ 17:11 by Kierra Dsouza DO) H/O arthroscopic knee surgery (Acute) H/O rotator cuff surgery (Acute) History of back surgery (Acute) H/O abdominal surgery (Chronic) Occupational Therapy Inpatient Evaluation/Re-Eval M1 PT/OT-IP Prior Functional Status Start: 07/21/18 12:34 Freq: NEEDED Status: Active Protocol: Document 07/22/18 14:38 MAHAMED (Rec: 07/22/18 16:26 PJM [id number]) Medical Review Prior Functional Status Medical History Reviewed Yes Communication WNL Mobility and Gait Pt stated that he is modified independent with all mobilities and ambulation using FWW outdoors and SPC indoors but occasionally also uses FWW indoors depending on how he feels. Activities of Daily Living and IADL's Pt states he was independent with all self care included seated shower. He does some cooking. Pt states he helps with laundry. He sometimes goes to store with and uses electric cart for mobility. Pt no longer drives. Prior Functional Level (Other details) Note pt had recent hospitalization with 3 week SNF stay and was home just 1 week prior to this admit. Social History Household Members spouse Living Arrangements Mobile home Number of Floors (Floors) One Floor Number of Stairs To Enter/Railing? 3 steps to enter from the front with bilateral rails; 3 steps from the back with R rail ascending (pt usually uses this side) Home Environment High Toilet Tub/Shower Home Equipment Front Wheel Walker Tub Transfer Image Assembler Held Shower Long Handled Sponge Long Handled Shoe Horn Taper And Floater Sock Aid Grab Bars Near Toilet Grab Bars In Shower Employment Status Retired M2 OT-IP Current Condition Start: 07/21/18 13:21 Freq: Status: Active Protocol: Document 07/22/18 14:38 PJM (Rec: 07/22/18 16:26 PJM [id number]) Occupational Therapy Current Condition Current Condition Evaluation Date 07/22/18 Treatment Diagnosis acute metabolic encephalopathy due to renal failure Diagnosis Onset Date 07/20/18 Post Operative Precautions Other Precautions monitor O2 sats, pulse, fall risk M3 OT- IP Subjective and Pain Start: 07/21/18 13:21 Freq: Status: Active Protocol: Document 07/22/18 14:38 PJM (Rec: 07/22/18 16:26 PJM [id number]) OT- Subjective Occupational Therapy Visit Type Type Initial Evaluation Visit Start Time 14:05 Visit Stop Time 14:38 Total Visit Minutes 33 Notes Pt's O2 sats 89-94 on room air , dropping to 88-89 with rapid recovery after standing at sink 3-4 min. Occupational Therapy Visit Comments Patient/Caregiver Goals to go home OT Pain Assessment Pain When Pain Assessed After Treatment Pain Present Pain Present Pain Reported Location Bilateral Leg Intensity 5 Scale Used Numeric (1 - 10) Description Aching Chronic Back Intensity 6 Scale Used Numeric (1 - 10) Description Aching Chronic M4 OT- IP ADL's Start: 07/21/18 13:21 Freq: Status: Active Protocol: Document 07/22/18 14:38 PJM (Rec: 07/22/18 16:26 PJM [id number]) OT SNF-Acuv-Psydrnx General Evaluation Self-Feeding Ability Independent OT ADL-Grooming General Evaluation Grooming Ability Contact Guard Assistance Areas Needing Assistance Face Washing Comments OT Grooming Comments pt had one loss of balance forward requiring min assist to correct when eyes closed for face washing OT ADL-Oral Care Comments Oral Care Comments did not complete due to bowel urgency OT ADL-Dressing General Eval Upper Body Dressing Ability Standby Assistance Areas Needing Assistance Retrieving/Set-up of Clothing Underpants/Brief Assistive Devices Dressing Assistive Devices Long Handled Shoe Horn Taper And Floater Comments OT Dressing Comments lower body dressing to be assessed; pt has all adaptive equipt at home from recent SNF stay OT ADL-Toileting General Evaluation Toileting Ability Total Assistance Comments OT Toileting Comments needed total assist to stand for cleanup after incontinent diarrhea; pt was aware OT ADL-Bathing Comments OT Bathing Comments to be assessed M5 OT- IP IADL's Start: 07/21/18 13:21 Freq: Status: Active Protocol: Document 07/22/18 14:38 PJM (Rec: 07/22/18 16:26 [facility] NR) OT-Instrumental Activities of Daily Living Deficits IADL Deficits Identified Deficits Home Safety Awareness Awareness of Need for Assistance at Home Good Awareness Ability to Problem Solve Emergency Able to Problem Solve Situations Medication Management Medication Management Caregiver Provides Supervision Money Management Money Management Caregiver Provides Assistance Meal Preparation Meal Preparation Caregiver Provides Assist Meal Preparation Comments until pt able Photogrammetry Airplane Pilot Photogrammetry Airplane Pilot Caregiver Provides Assist Driving Driving Caregiver Provides Assist M6 OT- IP Functional Cognition Start: 07/21/18 13:21 Freq: Status: Active Protocol: Document 07/22/18 14:38 PJM (Rec: 07/22/18 16:26 [facility] NR) Cognitive Factors Limiting Selfcare Function Cognitive Ability Level of Alertness Alert Patient Orientation Name Age Birthday Month Date Year Day of Week Place Situation Attention Span Ability Capable of Focused Attention Capable of Sustained Attention Ability to Follow Commands Able to Follow One Step Commands Cognitive Comments Cognitive Assessment Comments Pt alert, oriented, pleasant and cooperative today with good effort and participation. OT- Vision and Hearing OT- Hearing Assessment OT- Hearing Assessment WFL OT- Vision Assessment Visual Acuity Glasses For Reading Vision Assessment Comments Pt denies any recent changes M7 OT- IP Mobility and Balance Start: 07/21/18 13:21 Freq: Status: Active Protocol: Document 07/22/18 14:38 PJM (Rec: 07/22/18 16:26 [facility] [id number]) OT-Transfer Assessment Sit to and From Stand Sit to and from Stand Minimal Assistance 1 Person Assistance Transfers Transfer Ability Contact Guard Assistance 1 Person Assistance Technique Transfer Destination Chair Transfer Technique Stand Step Pivot Devices Transfer Assistive Devices Gait Belt Front Wheeled Walker Comments Mobility Comments Pt up in recliner when therapist arrived. OT- Gait Assessment Gait Gait Assistance Required: Contact Guard Assist Distance (Feet) 10 Assistive Devices Assistive Device Gait Belt Front Wheeled Walker OT- Balance Assessment Sitting Balance and Reactions Static Sitting Balance Ability Good Standing Balance and Reactions Static Standing Balance Ability Fair Dynamic Standing Balance Ability Fair Comments Other Balance Tests/Deviations/Treatment pt had one loss of balance : forward when eyes closed to wash face M8 OT- IP Objective Assessments Start: 07/21/18 13:21 Freq: Status: Active Protocol: Document 07/22/18 14:38 PJM (Rec: 07/22/18 16:26 PJM [id number]) OT Gross Range of Motion Upper Extremity Range of Motion ROM Impairments R shoulder scaption to about 110, L shoulder scaption about 80; distal AROM WFL BUE. Note pt wearing R middle finger extension splint due to gout in PIP. AROM WFL when splint off. OT Strength Upper Extremity Strength Assessment Within Functional Limits Hand Strategy Analyst Strength Hand Dominance Right OT- Coordination Assessment Comments Coordination Comments Impaired by B essential tremors R worse than L OT-Muscle Tone Assessment Muscle Tone WNL Yes OT Sensation Assessment Comments Summary Comments BUE WNL M9 OT- IP Assessment and Plan Start: 07/21/18 13:21 Freq: Status: Active Protocol: Document 07/22/18 14:38 PJM (Rec: 07/22/18 16:26 PJM [id number]) OT Summary Assessment and Plan Potential Rehabilitation Potential Good Analytic Complexity at Evaluation Low Summary OT Impairments Balance Coordination Functional Mobility Grooming Dressing Toileting Bathing Toilet Transfers Shower Transfers Assessment Summary Low complexity OT assessment completed with emphasis on self care skills. Session cut short today by incontinence of liquid stool. Pt currently has performance deficits in all functional mobility/ transfers, standing balance during grooming at sink. lower body dressing, bathing and toileting. Pt will benefit from OT services to address goals below. Goals Grooming Goal Standby Assistance Dressing Goal Standby Assistance Long Handled Shoe Horn Taper And Floater Sock Aid Toileting Goal Standby Assistance Bathing Goal Standby Assistance Toilet Transfer Goal Independent Shower Transfer Goal Contact Guard Assistance Patient/Caregiver Education Goal Demonstrate Energy Conservation and Pacing Days to Meet Goals 5 Frequency of Treatment Frequency Of Treatment Once a Day Treatment Plan OT Treatment Plan ADL Training Functional Mobility Patient/Family Education Discharge Planning Other Treatment Recommendations and Next up to sink for grooming, watch Treatment Focus balance closely, toilet transfers Discharge Recommendations OT Discharge Recommendations Home with Assistance Home Health
--- NOTE | 2018-07-22 14:51 | CM.DPC ---
DCP Cont: DC recommendation from Hospitalist this morning during multi-disciplinary rounding was SNF. PT notes indicate pt is safe to return home w/spouse. Met w/pt and spouse Kathy this afternoon. Lengthy conversation about SNF vs Home w/HH. Pt recently was released from [facility] and both pt and spouse eager to get pt home if it is feasible and safe. Spouse concerned about pt's need for home O2 if he is cleared for home. Pt has been compliant w/his trilogy machine at home. Pt has been using [facility] since his DC from [facility] and would like this resumed if he is DC home. Kathy explains pt will need to be able to get up w/walker on his own and ambulate to BR and/or BSC. This HSE SPECIALIST encouraged Kathy to search [employer] tomorrow, Thursday, for BSC, she agreed that would be helpful. This HSE SPECIALIST suggested the referral process be started to [facility] (first and only SNF choice at this time) and auth request through [facility] be initiated. If pt makes enough improvement over the next 24-48 hrs, it's possible he could go home with spouse and [facility]. HSE SPECIALIST Tasks: Kathy requests information on Home O2 (would pt meet criteria?), insurance coverage for lift recliners (?), and coordination of caregiver training w/PT. Following closely. Requested that sales administrator Juan send initial referral to [facility] for review. DARIEL Sanders
[2018-07-22] MEDS: PANTOPRAZOLE 40 MG VIAL 20 MG IV (15:48)
[2018-07-22] MEDS: SODIUM CHLORIDE 0.9% FLUSH 10 ML IV ×2 (15:49→20:47)
[2018-07-22] MEDS: ATORVASTATIN 20 MG TABLET 40 MG PO (20:30)
[2018-07-23] VITALS (8 sets, daily range): BP systolic 119–173; BP diastolic 53–81; PULSE 37–75; RESP 15–18; TEMP 36.7–37.3; O2SAT 85–96
[2018-07-23 06:09] LABS: Add Manual Diff / Slide Review NO; Basophils Percent Auto 0.5 % (0-2); Eosinophils Percent Auto 1.5 % (2-4); Hematocrit 36.4 % (41-53); Hemoglobin 11.8 g/dL (13.5-17.5); Lymphocytes Percent Auto 24.1 % (25-40); Mean Corpuscular HGB Conc 32.4 % (30-36); Mean Corpuscular Hemoglobin 28.9 PG (26-34); Mean Corpuscular Volume 89.5 fL (80-100); Monocytes Percent Auto 12.8 % (3-14); Neutrophils Absolute Auto 4700 /uL (3000-5900); Neutrophils Percent Auto 61.1 % (50-75); Platelet Count 191 X10^3/uL (150-400); Red Blood Cell Count 4.07 X10^6/uL (4.5-5.9); Red Cell Distribution Width 18.7 % (11.6-14.8); White Blood Cell Count 7.7 X10^3/uL (4.5-11.0)
[2018-07-23 06:18] LABS: Alanine Aminotransferase 20 IU/L (21-72); Albumin 3.1 g/dL (3.5-5.0); Alkaline Phosphatase 49 U/L (38-126); Aspartate Aminotransferase 14 IU/L (17-59); BUN Creatinine Ratio 21.1 (6-22); Bilirubin Total 0.9 mg/dL (0.2-1.3); Blood Urea Nitrogen 19 mg/dL (9-20); Calcium 8.9 mg/dL (8.4-10.2); Carbon Dioxide 37 mmol/L (22-32); Chloride 102 mmol/L (98-107); Estimated Glomerular Filt Rate > 60.0 mL/min (>60); Glucose 115 mg/dL (80-110); HEMOLYSIS < 15 (0-50); Magnesium 1.7 mg/dL (1.6-2.3); Phosphorous 3.6 mg/dL (2.3-3.7); Potassium 3.4 mmol/L (3.4-5.1); Sodium 146 mmol/L (137-145); Total Protein 6.1 g/dL (6.3-8.2)
[2018-07-23] MEDS: LEVOTHYROXINE 100 MCG TABLET 300 MCG PO (06:55)
[2018-07-23] MEDS: DOXAZOSIN 4 MG TABLET 8 MG PO (06:56)
[2018-07-23] MEDS: ASPIRIN EC 81 MG TABLET PO (06:56)
[2018-07-23] MEDS: ALLOPURINOL 100 MG TABLET PO (08:29)
[2018-07-23] MEDS: GLIMEPIRIDE 2 MG TABLET 1 MG PO (08:29)
[2018-07-23] MEDS: CALCIUM CARBONATE 500 MG TAB 1000 MG PO (08:30)
[2018-07-23] MEDS: CHOLECALCIFEROL (VITAMIN D3) 1,000 UNIT TABLET 1000 UNIT PO (08:30)
[2018-07-23] MEDS: FUROSEMIDE 20 MG/2 ML VIAL IV (08:30)
[2018-07-23] MEDS: MULTIVITAMIN 1 TABLET 1 TAB PO (08:31)
[2018-07-23] MEDS: HEPARIN 5,000 UNIT/ML VIAL 5000 UNIT SUBCUT (08:31)
[2018-07-23] MEDS: PROPRANOLOL ER 60 MG CAPSULE PO (08:32)
[2018-07-23] MEDS: FISH OIL 1,000 MG CAPSULE 1000 MG PO (08:32)
[2018-07-23] MEDS: NYSTATIN POWDER 30 GM 1 APPLIC TOP (08:33)
[2018-07-23] MEDS: OXYBUTYNIN 5 MG TABLET PO (09:27)
[2018-07-23] MEDS: GABAPENTIN 100 MG CAPSULE PO (09:27)
[2018-07-23] MEDS: SODIUM CHLORIDE 0.9% FLUSH 10 ML IV (09:28)
--- NOTE | 2018-07-23 09:28 | PT.IPTN ---
Current Diagnoses Metabolic encephalopathy (07/20/18) Physical Therapy Treatment Note M2 PT-IP Current Condition Start: 07/21/18 12:34 Freq: NEEDED Status: Active Protocol: Document 07/22/18 11:34 AB (Rec: 07/22/18 13:23 AB [id number]) Physical Therapy Current Condition Current Condition Evaluation Date 07/22/18 Treatment Diagnosis weakness; acute hyperkalemia; difficulty in walking Onset Date 07/20/18 Precautions Other Precautions O2 sat; NM M3 PT-IP Subjective Start: 07/21/18 12:34 Freq: NEEDED Status: Active Protocol: Document 07/23/18 09:27 LJ (Rec: 07/23/18 09:28 LJ [id number]) Subjective Physical Therapy Visit Type Type Patient Refusal Notes Pt states he has been moving around on his own and is leaving later today anyway. Therapy Pain Assessment Pain Present Pain Present Denied Pain M4 PT-IP Mobility and Gait Start: 07/21/18 12:34 Freq: NEEDED Status: Active Protocol: Document 07/22/18 11:34 AB (Rec: 07/22/18 13:23 AB [id number]) PT-Bed Mobility Assessment Supine to Sit Supine to Sit Maximum Assistance 1 Person Assistance Scooting Scooting to Edge of Bed Moderate Assistance PT-Transfer Assessment Sit to and From Stand Sit to and from Stand Contact Guard Assistance Equipment Transfer Assistive Device Gait Belt Front Wheeled Walker Orthotic/Prosthetic Devices or Brace: No Comments Mobility Comments (+) B knee crepitus with sit < > stand Gait Assessment Gait Gait Assistance Required: Contact Guard Assist Distance (Feet) 30 Able to Maintain Weight Bearing Status Yes During Gait Assistive Devices Assistive Device Gait Belt Front Wheeled Walker Orthotic/Prosthetic Devices or Brace: No Gait Deviations General Gait Pattern Antalgic Decreased Stride Length Decreased Feet Clearance Factors Limiting Gait Function Factors Limiting Gait Function Decreased Activity Tolerance Decreased Strength Pain Poor Balance Comments Gait Comments vitals prior to mobilization: BP 128/65 O2 sat 96% NM 55 . Pt with (+) SOB during mobility. O2 sat decreases to 82% and cued for deep breathing and O2 sat increases to 88%. NM with variable readings: 38 to 212. informed nurse and stated that pt is monitored with telemetry. PT-Balance Assessment Sitting Balance and Reactions Static Sitting Balance Ability Good Dynamic Sitting Balance Ability Fair Standing Balance and Reactions Static Standing Balance Ability Fair Dynamic Standing Balance Ability Fair Device Used using FWW M5 PT-IP Objective Assessments Start: 07/21/18 12:34 Freq: NEEDED Status: Active Protocol: Document 07/22/18 11:34 AB (Rec: 07/22/18 13:23 AB [id number]) Orientation Orientation/Cognition Level of Alertness Alert Orientation Name Age Birthday Month Date Year Day of Week Place Situation Strength Lower Extremity Strength Assessment Bilaterally Impaired Hip 4-/5 Knee 4-/5 Ankle 4-/5 Muscle Tone Muscle Tone WNL No M6 PT-IP Treatment Start: 07/21/18 12:34 Freq: NEEDED Status: Active Protocol: Document 07/22/18 11:34 AB (Rec: 07/22/18 13:23 AB [id number]) Physical Therapy Treatment Education Education Provided Safety M7 PT-IP Assessment and Plan Start: 07/21/18 12:34 Freq: NEEDED Status: Active Protocol: Document 07/22/18 11:34 AB (Rec: 07/22/18 13:23 AB [id number]) PT Summary Assessment and Plan Potential Rehabilitation Potential Good Status of Condition at Evaluation Evolving Summary Impairments Pain ROM Strength Balance Coordination Sensation Tone Cognition Bed Mobility Transfers Gait Activity Tolerance Assessment Summary pt requiring max A with bed mobility and SBA with ambulation using FWW. pt presents with decrease activity tolerance with decrease in O2 sat with activity. d/c plan depending on progress. pt plans to go home with spouse to assist him . Goals Bed Mobility Goal Standby Assistance Transfer Goal Independent Front Wheeled Walker Gait Goal Independent Front Wheel Walker Gait Distance 75 Days to Meet Goals 5 Frequency of Treatment Frequency Of Treatment Once a Day Treatment Plan Physical Therapy Treatment Plan Bed Mobility Training Transfer Training Gait Training Therapeutic Exercise Balance Retraining Discharge Planning Hot or Cold Pack Neuromuscular Re-ed Coordination Retraining Manual Therapy Recommendations To Nursing Amount of Assist Needed Standby Assistance Discharge Recommendations PT Discharge Recommendations Home with Assistance Outpatient PT Other Discharge Recommendations cardiopulmonary rehab
[2018-07-23] MEDS: ALBUTEROL/IPRATROPIUM 3 ML AMPUL INH (09:51)
[2018-07-23] MEDS: BECLOMETHASONE 80 MCG INH 10.6 GM 2 PUFF INH (09:52)
[2018-07-23] MEDS: PANTOPRAZOLE 40 MG VIAL 20 MG IV (12:25)
--- NOTE | 2018-07-23 12:26 | OT.IP.TRT ---
Current Diagnoses Metabolic encephalopathy (07/20/18) Occupational Therapy Treatment Note M2 OT-IP Current Condition Start: 07/21/18 13:21 Freq: Status: Active Protocol: Document 07/22/18 14:38 PJM (Rec: 07/22/18 16:26 PJM [id number]) Occupational Therapy Current Condition Current Condition Evaluation Date 07/22/18 Treatment Diagnosis acute metabolic encephalopathy due to renal failure Diagnosis Onset Date 07/20/18 Post Operative Precautions Other Precautions monitor O2 sats, pulse, fall risk M3 OT- IP Subjective and Pain Start: 07/21/18 13:21 Freq: Status: Active Protocol: Document 07/23/18 12:22 [facility] (Rec: 07/23/18 12:26 [facility] [id number]) OT- Subjective Occupational Therapy Visit Type Type Administrative Note Notes Pt to go home today and would rather have aid assist to shower him versus do OT treatment and shower himself at this time. In addition, pt' s states would rather have aid shower pt versus trying to assist pt as part of OT treatment. PT looking to go home with home health.
--- NOTE | 2018-07-23 12:26 | PT.IPTN ---
Current Diagnoses Metabolic encephalopathy (07/20/18) Physical Therapy Treatment Note M2 PT-IP Current Condition Start: 07/21/18 12:34 Freq: NEEDED Status: Active Protocol: Document 07/22/18 11:34 AB (Rec: 07/22/18 13:23 AB [id number]) Physical Therapy Current Condition Current Condition Evaluation Date 07/22/18 Treatment Diagnosis weakness; acute hyperkalemia; difficulty in walking Onset Date 07/20/18 Precautions Other Precautions O2 sat; [place] M3 PT-IP Subjective Start: 07/21/18 12:34 Freq: NEEDED Status: Active Protocol: Document 07/23/18 12:10 GGD (Rec: 07/23/18 12:26 GGD [email or web address]) Subjective Physical Therapy Visit Type Type Treatment Note Visit Start Time 11:40 Visit Stop Time 12:10 Total Visit Minutes 30 Number of SEWING MACHINE ADJUSTER Visits 1 Physical Therapy Visit Comments Patient Comments Pt states he hopes to go home today. M4 PT-IP Mobility and Gait Start: 07/21/18 12:34 Freq: NEEDED Status: Active Protocol: Document 07/23/18 12:10 GGD (Rec: 07/23/18 12:26 GGD [id number]) PT-Transfer Assessment Sit to and From Stand Sit to and from Stand Contact Guard Assistance Equipment Transfer Assistive Device Gait Belt Front Wheeled Walker Orthotic/Prosthetic Devices or Brace: No Transfers Transfer Destination Chair Wheelchair Transfer Ability Level of Assist Contact Guard Assistance Use of Upper Extremities Gait Assessment Gait Gait Assistance Required: Contact Guard Assist Distance (Feet) 50 Able to Maintain Weight Bearing Status Yes During Gait Assistive Devices Assistive Device Gait Belt Front Wheeled Walker Orthotic/Prosthetic Devices or Brace: No Gait Deviations General Gait Pattern Antalgic Decreased Stride Length Decreased Feet Clearance Factors Limiting Gait Function Factors Limiting Gait Function Decreased Activity Tolerance Decreased Strength Pain Poor Balance Comments Gait Comments O2 on 3 L 90% at rest, 92% with activity. Stair Climbing Assessment Evaluation Level of Assist On Stairs Contact Guard Assistance Devices Stair Climbing Assistive Devices Straight Cane Right Railing Technique/Endurance Stair Climbing Direction Ascend and Descend Stair Climbing Technique Step to Step Number of Steps Climbed 3 Query Text: Stair Climbing Set # Repetitions (reps) 1 M5 PT-IP Objective Assessments Start: 07/21/18 12:34 Freq: NEEDED Status: Active Protocol: Document 07/22/18 11:34 AB (Rec: 07/22/18 13:23 AB [id number]) Orientation Orientation/Cognition Level of Alertness Alert Orientation Name Age Birthday Month Date Year Day of Week Place Situation Strength Lower Extremity Strength Assessment Bilaterally Impaired Hip 4-/5 Knee 4-/5 Ankle 4-/5 Muscle Tone Muscle Tone WNL No M6 PT-IP Treatment Start: 07/21/18 12:34 Freq: NEEDED Status: Active Protocol: Document 07/22/18 11:34 AB (Rec: 07/22/18 13:23 AB [id number]) Physical Therapy Treatment Education Education Provided Safety M7 PT-IP Assessment and Plan Start: 07/21/18 12:34 Freq: NEEDED Status: Active Protocol: Document 07/23/18 12:10 GGD (Rec: 07/23/18 12:26 GGD [id number]) PT Summary Assessment and Plan Summary Assessment Summary Pt improving with mobility. He was able to progress with gait and sit to stand. He was safe and stable with stair mobility. He had fair static standing balance. Frequency of Treatment Frequency Of Treatment Once a Day Treatment Plan Physical Therapy Treatment Plan Bed Mobility Training Transfer Training Gait Training Therapeutic Exercise Balance Retraining Discharge Planning Hot or Cold Pack Neuromuscular Re-ed Coordination Retraining Manual Therapy Recommendations To Nursing Amount of Assist Needed Standby Assistance Discharge Recommendations PT Discharge Recommendations Home with Assistance Home Health
[2018-07-23] MEDS: INSULIN ASPART 100 UNIT/ML INSULN PEN SUBCUT (12:36)
--- NOTE | 2018-07-23 12:50 | P.DS_ITS ---
History of Present Illness Chief complaint: Increased weakness, fever Narrative: THIS IS A 73-YEAR-OLD MALE MORBIDLY OBESE WHO WAS BROUGHT TO THE HOSPITAL BY HIS AND EMS. REPORTEDLY PATIENT WAS RECENTLY IN THE HOSPITAL DISCHARGE TO ASSISTED FACILITY. THERE IS PAIN IN FEW WEEKS AND WAS SUBSEQUENTLY DISCHARGED TO HOME. HE HAS BEEN HOME FOR A COUPLE WEEKS NOW REPORTEDLY HAS BEEN IN USUAL STATE OF HEALTH. PATIENT APPEARED TO BE ENCEPHALOPATHIC WELL LETHARGIC AND UNABLE TO PROVIDE A RELIABLE REVIEW OF SYSTEM OR HISTORY. MOST OF THE HISTORY WAS TAKEN FROM HIS AT BEDSIDE AND ER WORKUP WITH HIS REPORTED FOR THE LAST 2 DAYS PATIENT HAS BEEN HAVING DECREASE IN URINATION. AND ALSO HE HAS NOT BEEN DRINKING FLUID USUAL SHE ALSO REPORTED INCREASED CONFUSION. ALSO PATIENT'S OXYGEN SATURATION HAS BEEN IN LOW SIDE TODAY PATIENT WENT TO THE BATHROOM AND SUDDENLY COULD NOT MOVE. HE COULD NOT GET OUT THE BATHROOM. HE FELT LIKE HE WAS GOING TO FALL. EMS WAS CALLED. AND PATIENT WAS TAKEN TO THE ER FOR FURTHER EVALUATION PATIENT DENIES ANY CHANGES TO HIS MEDICATION AND LAST 2 DAYS. NO REPORTED COUGH FEVER OR CHILLS. NO REPORTED SHORTNESS OF BREATH OR CHEST PAIN. NO OTHER COMPLAINTS Discharge Providers Date of admission: 07/20/18 15:01 Primary care physician: Otto Jarrell MD Consults: 07/20/18 15:03 Consult to Discharge Planning Routine Comment: Consult to Occupational Therapy Evaluate & Treat Comment: Physician Instructions: Evaluate and treat Consult to Physical Therapy Evaluate & Treat Comment: Physician Instructions: Evaluate and Treat 07/20/18 17:34 Consult to Dietitian, Adult Routine Comment: Reason For Exam: assessed at risk Consult to Respiratory Therapy Evaluate & Treat Comment: Physician Instructions: Evaluate and treat Consult to Corporate Director Of Human Resources Routine Comment: Discharge provider: Kierra Dsouza DO Discharge Date: 07/23/18 Summary Discharge Diagnosis: IMPRESSION AND PLAN ACUTE METABOLIC ENCEPHALOPATHY. APPEARS RESOLVED THIS AM; COULD HAVE BEEN DUE TO ACUTE CONDITION VS MEDS S/E SUCH GABAPENTIN. . NURSING TO REORIENT DICTATED. KEEP LIGHTS ON IN THE ROOM AT ALL TIMES. FALL AND ASPIRATION PRECAUTIONS POSSIBLE DEMENTIA WITH ACUTE EXACERBATION. APPEARS BACK AT BASELINE; FALL AND ASPIR PRECAUTIONS; RE-ORIENT INDICATED POSS ACUTE ON CHRONIC DIASTOLIC HF; CONT WITH IV LASIX FOR NOW; DAILY WT WITH SAME SCALE; RESTRICT FLUIDS; TELE AT ALL TIMES; CARDIAC LOW SALT DIET. MONITOR CLOSELY; I/O WITH NEG FLUID BALANCE ACUTE RENAL FAILURE. RESOLVING; THIS WAS MOST LIKELY PRERENAL AZOTEMIA; AVOID ALL NEPHROTOXIN MEDICATIONS. DOSE ALL MEDICATIONS PER GFR. CONSIDER KIDNEY ULTRASOUND INDICATED. STRICT I/O; DAILY WT WITH SAME SCALE. AEIOU HYPERKALEMIA; RESOLVED; TREAT INDICATED GOUT PER HISTORY; RESTARTED PATIENT ON HOME MEDICATIONS. ON ALLOPURINOL. COPD PER HISTORY; NO SIGNS/ SYMPTOMS OF ACUTE EXACERBATION. CONTINUE HOME MED. ON OXYGEN ALL TIMES TO MAINTAIN SAT >88%. CHEST X-RAY AND ABG INDICATED CAD PER HISTORY; KEEP ON TELE AT ALL TIME. RESTART ON HOME MEDICATIONS. EKG INDICATED. ANEMIA OF CHRONIC DISEASE PER HISTORY; DAILY LABS TO FOLLOW DIABETES TYPE 2 PER HISTORY; INSULIN SLIDING SCALE. RESTART ON HIS HOME MEDICATIONS. GERD PER HISTORY; ON PPI. HLD; HOME MEDS HYPERTENSION PER HISTORY; [facility] HOME AND NEEDED MEDS; ADJUST REGIMEN INDICATED MORBID OBESITY; OUTPATIENT MANAGEMENT. LIFESTYLE CHANGES RECOMMENDED OBESITY HYPERV SYNDROME PER HX; BIPAP WHILE ASLEEP. SERIAL ABG TO FOLLOW Hospital Course: PATIENT ADMITTED TO THE ED WITH METABOLIC ENCEPHALOPATHY APPARENTLY, THIS IS NOT THE 1ST TIME THIS HAS HAPPENED WE DEC HIS GABAPENTIN DOSE WHICH WE FEEL WAS THE CULPRIT HE IS NOW ON 100 INSTEAD OF 900MG TID. HIS DITROPAN WAS ALSO CHANGED TO NIGHTLY AT THIS TIME , HE IS BACK TO HIS BASELINE MENTALLY AND PHYSICALLY HE WAS ALSO EVALUATED FOR HOME OXYGEN AND DC WITH OXYGEN THERAPY RECOMMENDED PER RT. HE WILL BE DC TO HOME AND ADDITIONAL MANAGEMENT PER OP PROVIDERS Status at Discharge Cognitive/behavioral status at discharge: STABLE TO HOME WITH Functional status at discharge: uses cane/walker Overall status at discharge: patient is back to baseline Time Spent with Patient Greater than 30 minutes Exam Vital Signs (past 8 hours): - 07/23/18 04:57 07/23/18 06:56 07/23/18 08:00 Temperature 98.1 F 99.1 F Pulse Rate 54 L 55 L 37 L Respiratory Rate 15 18 Blood Pressure 147/75 H 173/81 H 143/53 H Pulse Oximetry 96 96 07/23/18 09:55 07/23/18 10:44 07/23/18 11:52 Temperature Pulse Rate 43 L Respiratory Rate 16 Blood Pressure Pulse Oximetry 85 L 85 L 92 Fraction of Inspired Oxygen 21 Oxygen Delivery Method Nasal Cannula Oxygen Flow Rate 3 Narrative Exam Narrative: NO ACUTE DISTRESS. AAOX3 VITAL SIGNS STABLE HEAD ATRAUMATIC NORMOCEPHALIC NECK : SUPPLE WITHOUT ADENOPATHY NO CAROTID BRUITS EYE: EOMI, PERRLA, NORMAL CONJUNCTIVA; NO JAUNDICE CHEST: REGULAR RATE. NO RUBS. PMI IS NON DISPLACED; NORMAL S1-S2 PULMONARY: DECREASED BS OVER THE BASES. BIBASILAR AND DIFFUSED CRACKLES NOTED; NO INCREASED DULLNESS TO PERCUSSION; NO WHEEZING; ABDOMEN: OBESE BUT SOFT. NONTENDER. NONDISTENDED. BOWEL SOUNDS ARE PRESENT IN ALL 4 QUADRANTS BUT HYPOACTIVE. NO MASS. EXTREMITIES: 3+ NONPITTING EDEMA.. NO CYANOSIS OR CLUBBING NOTED. NEURO: CRANIAL NERVES 2-12 GROSSLY INTACT. NO FOCAL NEUROLOGICAL DEFICIT NOTED. CONFUSED MSK: NORMAL RANGE OF MOTION FOR AGE. NO JOINT EFFUSION. SKIN: NORMAL FOR ETHNICITY; NO ECCHYMOSIS. NO LESION. GOOD TURGOR.; NO RASHES : NORMAL EXTERNAL GENITALIA. NO ABNORMAL ODOR OR DRAINAGE PSYCH : CALM. COOPERATIVE. AAOX3 Objective Labs Result Diagrams: 07/23/18 05:44 07/23/18 05:44 Labs: Laboratory Results - last 24 hr 07/23/18 07/23/18 05:44 05:44 WBC 7.7 RBC 4.07 L Hgb 11.8 L Hct 36.4 L MCV 89.5 MCH 28.9 MCHC 32.4 RDW 18.7 H Plt Count 191 Neut % (Auto) 61.1 Lymph % (Auto) 24.1 L [place] % (Auto) 12.8 Eos % (Auto) 1.5 L Baso % (Auto) 0.5 Neut # (Auto) 4700 Sodium 146 H Potassium 3.4 Chloride 102 Carbon Dioxide 37 H BUN 19 Creatinine 0.90 Estimated GFR > 60.0 BUN/Creatinine Ratio 21.1 Glucose 115 H Calcium 8.9 Phosphorus 3.6 Magnesium 1.7 Total Bilirubin 0.9 AST 14 L ALT 20 L Alkaline Phosphatase 49 Total Protein 6.1 L Albumin 3.1 L Globulin 3.0 Albumin/Globulin Ratio 1.0 Discharge Plan Discharge Plan Patient Disposition: Home Health Service Discharge Med Rec/Prescriptions Prescriptions: New allopurinol 100 mg Tablet 100 mg PO DAILY Qty: 30 RF: 0 gabapentin 100 mg capsule 100 mg PO TID Qty: 90 RF: 0 Continue albuterol sulfate [Ventolin HFA] 90 MCG/PUFF HFA aerosol inhaler 2 puff INH Q6HP PRN (Reason: Shortness Of Breath) Qty: 0 RF: 0 lisinopril 5 MG tablet 5 mg PO BEDTIME Qty: 0 RF: 0 polyethylene glycol 3350 [Miralax] 119 GM powder 17 gm PO QDAYP PRN (Reason: Constipation) Qty: 0 RF: 0 glimepiride 1 MG tablet 1 mg PO BIDCC Qty: 0 RF: 0 furosemide 40 mg tablet 40 mg PO 0630 RF: 0 atorvastatin 40 mg tablet 1 tab PO BEDTIME RF: 0 propranolol 60 mg tablet 1 tab PO TID RF: 0 pantoprazole 20 mg tablet,delayed release (DR/EC) 20 mg PO QNOON RF: 0 doxazosin 8 mg tablet 8 mg PO 0630 RF: 0 aspirin 81 mg Tablet,Delayed Release (Dr/Ec) 81 mg PO 0630 RF: 0 acetaminophen 500 mg Capsule 2 cap PO TID RF: 0 multivitamin Tablet 1 tab PO DAILY RF: 0 nitroglycerin 0.4 mg Tablet, Sublingual 0.4 mg SUBLINGUAL Q5-15M PRN (Reason: Chest Pain) RF: 0 docusate sodium 100 mg Capsule 100 mg PO DAILY PRN (Reason: stool softener) RF: 0 omega 9-[id number]-[id number]-fish oil [Fish Oil] 1,000 mg (120 mg-180 mg) Capsule 1 cap PO DAILY RF: 0 cholecalciferol (vitamin D3) [Vitamin D3] 1,000 unit Capsule 1,000 unit PO DAILY RF: 0 beclomethasone dipropionate [Qvar RediHaler] 80 mcg/actuation Hfa Aerosol Breath Activated 2 puff Inhalation BID PRN (Reason: Shortness Of Breath) RF: 0 levothyroxine 200 mcg tablet 200 mcg PO DAILY RF: 0 levothyroxine 100 mcg tablet 100 mcg PO DAILY RF: 0 Changed oxybutynin chloride 5 mg tablet 1 tab PO BEDTIME Qty: 0 RF: 0 Discontinued gabapentin [Neurontin] 300 MG capsule 600 mg PO BEDTIME Qty: 0 RF: 0 gabapentin 300 mg capsule 900 mg PO TID RF: 0 allopurinol 100 mg tablet 100 mg PO DAILYX7 RF: 0 oxycodone 5 mg tablet 10 mg PO PRN PRN (Reason: pain) RF: 0 Follow up/Referrals: Otto Jarrell MD [Primary Care Provider] - (please follow up with your primary care provider after discharge) Provider Discharge Instructions Diet: Low-fat, Low-sodium and Low-cholesterol Skin/Wound/Dressing Care Report to your healthcare provider any signs of infection, such as:: chills, fever, night sweats, increased pain, unusual drainage and unusual redness Visit Report/Discharge Packet Visit Report Forms: Congestive Heart Failure, Stroke Signs & Symptoms Discharge Data Primary Care Provider: Otto Jarrell V Attending Provider: Kierra Dsouza Admit Date/Time: 07/20/18 15:01 Quality VTE Deep Vein Thrombosis/Pulmonary Embolism Present on Admission: No
--- NOTE | 2018-07-23 17:13 | PM.EVENT ---
Date Patient Seen: 07/23/18 Time Patient Seen: 11:13 PATIENT WITH CHRONIC RESPIRATORY FAILURE AND BEEN OXYGEN DEPENDENT PATIENT WAS SEEN AND GIVEN FACE TO FACE INSTRUCTIONS ON WHY HE NEEDED TO BE ON OXYGEN THERAPY HE WAS TRIED ON MULTIPLE OTHER THERAPIES HOWEVER , UNABLE TO BE WEANED OFF OXYGEN HE AGREES WITH HOME OXYGEN THERAPY AND UNDERSTAND THE RISK AND BENEFITS
--- NOTE | 2018-07-24 08:01 | CM.DPC ---
Late Entry/ DC Note: Pt had progressed well w/ PT yesterday and pt/spouse were eager to get home. PT cg training was coordinated yesterday morning w/spouse. This ELECTRIC REFRIGERATOR PREPARER requested that pt be evaluated for home O2 as both pt and spouse were concerned about going home w/o O2. Updates throughout the day from GREEN BUILDING ARCHITECT [employer]iri; pt/spouse had DME needed and felt confident about return home. They request [facility] be resumed. Pt has qualified for home O2. Re: home recliner, spouse will need to investigate insurance coverage. P: DC yesterday evening, home w/spouse and home O2, via pov. This ELECTRIC REFRIGERATOR PREPARER will alert [facility] to pt's DC. YULISA
== END 2018-07-23 16:52 | disposition home health service (06) | DRG 70 ==
LOC: ED 14:41 → AC 15:01
PROVIDERS: Admitting Provider Hospitalist; Emergency Provider Emergency Medicine; Family Provider Internal Medicine; PCP Internal Medicine; Visit Provider Hospitalist
DX: G93.41 Metabolic encephalopathy (principal); I50.33 Acute on chronic diastolic (congestive) heart failure; N17.9 Acute kidney failure, unspecified; Z68.41 Body mass index [BMI] 40.0-44.9, adult; J96.10 Chronic respiratory failure, unspecified whether with hypoxia or hypercapnia; E66.2 Morbid (severe) obesity with alveolar hypoventilation; E87.5 Hyperkalemia; I11.0 Hypertensive heart disease with heart failure; J44.9 Chronic obstructive pulmonary disease, unspecified; Z99.81 Dependence on supplemental oxygen; E11.9 Type 2 diabetes mellitus without complications; K21.9 Gastro-esophageal reflux disease without esophagitis; E78.5 Hyperlipidemia, unspecified; Z87.891 Personal history of nicotine dependence; I25.10 Atherosclerotic heart disease of native coronary artery without angina pectoris; D63.8 Anemia in other chronic diseases classified elsewhere; Z79.4 Long term (current) use of insulin; T42.6X5A Adverse effect of other antiepileptic and sedative-hypnotic drugs, initial encounter; F03.90 Unspecified dementia, unspecified severity, without behavioral disturbance, psychotic disturbance, mood disturbance, and anxiety; R53.1 Weakness
CPT/HCPCS: 36415; 36591; 36600; 51701; 70450; 71045; 80053; 81001; 82550; 82570; 82805; 82962; 83605; 83690; 83735; 83880; 84100; 84133; 84300; 84484; 84550; 85025; 85610; 85730; 85999; 87040; 93005; 93010; 94618; 94640; 94660; 94760; 94762; 96361; 96374; 96375; 97116; 97162; 97165; 97530; 97535; 99285; A9270; C9113; J0610; J1644; J1940

== ENCOUNTER → 2018-12-17 13:37 | Outpatient (CLI) | payer MEDICARE, SELFPAY ==
[2018-06-15 04:12] VITALS: PULSE 75; RESP 30; O2SAT 96
[2018-07-20 18:05] VITALS: BMI 39.9
--- NOTE | 2018-12-17 | DI.US.S_ITS ---
PROCEDURE: US PERIPH VENOUS LOW EXTREM BI INDICATIONS: PAIN IN BILATERAL LOWER LEGS TECHNIQUE: Real-time imaging, as well as color and pulse Doppler interrogation, were performed of the deep veins of both legs from the inguinal ligament to the popliteal fossa. COMPARISON: None. FINDINGS: Right: The common femoral, femoral and popliteal veins are normally compressible, and free of intraluminal thrombus. Color and pulse Doppler demonstrate normal phasic intravascular flow. There is normal augmentation response to distal compression maneuver. Left: The common femoral, femoral and popliteal veins are normally compressible, and free of intraluminal thrombus. Color and pulse Doppler demonstrate normal phasic intravascular flow. There is normal augmentation response to distal compression maneuver. IMPRESSION: 1. No deep venous thrombosis identified within the right lower extremity. Dictated by: Isrrael TAN Interpreted: Mare Royal MD on 12/17/2018 at 16:01 Approved by: Mare Royal M.D. on 12/20/2018 at 17:32
== END ==
PROVIDERS: PCP Internal Medicine; Visit Provider Internal Medicine
DX: M79.662 Pain in left lower leg (principal); M79.661 Pain in right lower leg
CPT/HCPCS: 93970

== ENCOUNTER → 2019-09-22 19:16 | Outpatient (ROUT) | payer MEDICARE, SELFPAY ==
[2018-06-15 04:12] VITALS: PULSE 75; RESP 30; O2SAT 96
[2018-07-20 18:05] VITALS: BMI 39.9
[2019-09-22 19:54] LABS: Add Manual Diff / Slide Review NO; Basophils Absolute Auto 100 /uL (0-100); Basophils Percent Auto 0.7 % (0-2); Eosinophils Absolute Auto 200 /uL (0-450); Eosinophils Percent Auto 2.6 % (2-4); Hematocrit 36.3 % (41-53); Hemoglobin 12.2 g/dL (13.5-17.5); Lymphocytes Absolute Auto 1800 /uL (1100-4500); Lymphocytes Percent Auto 22.6 % (25-40); Mean Corpuscular HGB Conc 33.6 % (30-36); Mean Corpuscular Volume 89.1 fL (80-100); Monocytes Absolute Auto 800 /uL (0-900); Monocytes Percent Auto 9.7 % (3-14); Neutrophils Absolute Auto 5100 /uL (1500-7000); Neutrophils Percent Auto 64.4 % (50-75); Platelet Count 164 X10^3/uL (150-400); Red Blood Cell Count 4.07 X10^6/uL (4.5-5.9); Red Cell Distribution Width 14.5 % (11.6-14.8); White Blood Cell Count 7.9 X10^3/uL (4.5-11.0)
[2019-09-22 20:02] LABS: Aspartate Aminotransferase 24 IU/L (17-59); Blood Urea Nitrogen 22 mg/dL (9-20); Calcium 9.5 mg/dL (8.4-10.2); Carbon Dioxide 27 mmol/L (22-32); Chloride 98 mmol/L (98-107); Cholesterol 128 mg/dL (140-199); Estimated Glomerular Filt Rate > 60.0 mL/min (>60); Glucose 240 mg/dL (80-110); HDL Cholesterol 21 mg/dL (40-60); HEMOLYSIS < 15 (0-50); LDL Cholesterol Calculated 55 mg/dL (<100); Potassium 4.5 mmol/L (3.4-5.1); Sodium 137 mmol/L (137-145); Triglycerides 260 mg/dL (35-150)
[2019-09-22 20:29] LABS: TSH w/ Reflex to FT4 < 0.02 uIU/mL (0.47-4.68)
[2019-09-22 20:57] LABS: Free T4, Direct Thyroxine 2.91 ng/dL (0.78-2.19)
== END ==
PROVIDERS: PCP Internal Medicine; Visit Provider Internal Medicine
DX: I10 Essential (primary) hypertension (principal); E78.2 Mixed hyperlipidemia; D64.9 Anemia, unspecified; E03.9 Hypothyroidism, unspecified; E11.9 Type 2 diabetes mellitus without complications
CPT/HCPCS: 80048; 80061; 83036; 84439; 84443; 84450; 85025

== ENCOUNTER → 2020-11-28 14:12 | Outpatient (ROUT) | payer OTHER, SELFPAY ==
[2018-06-15 04:12] VITALS: PULSE 75; RESP 30; O2SAT 96
[2018-07-20 18:05] VITALS: BMI 39.9
[2020-11-28 14:23] LABS: Add Manual Diff / Slide Review NO; Basophils Absolute Auto 100 /uL (0-100); Basophils Percent Auto 0.8 % (0-2); Eosinophils Absolute Auto 200 /uL (0-450); Eosinophils Percent Auto 2.9 % (2-4); Hematocrit 33.2 % (41-53); Hemoglobin 10.9 g/dL (13.5-17.5); Lymphocytes Absolute Auto 1600 /uL (1100-4500); Lymphocytes Percent Auto 25.9 % (25-40); Mean Corpuscular Hemoglobin 29.5 PG (26-34); Mean Corpuscular Volume 89.6 fL (80-100); Monocytes Absolute Auto 600 /uL (0-900); Monocytes Percent Auto 9.2 % (3-14); Neutrophils Absolute Auto 3800 /uL (1500-7000); Neutrophils Percent Auto 61.2 % (50-75); Platelet Count 178 X10^3/uL (150-400); Red Cell Distribution Width 15.4 % (11.6-14.8); White Blood Cell Count 6.3 X10^3/uL (4.5-11.0)
[2020-11-28 17:01] LABS: Alanine Aminotransferase 19 IU/L (<50); Albumin 3.9 g/dL (3.5-5.0); Albumin Globulin Ratio 1.3 (1.0-2.8); Alkaline Phosphatase 51 U/L (38-126); Aspartate Aminotransferase 20 IU/L (17-59); BUN Creatinine Ratio 18.6 (6-22); Bilirubin Total 0.4 mg/dL (0.2-1.3); Blood Urea Nitrogen 19 mg/dL (9-20); Calcium 9.6 mg/dL (8.4-10.2); Carbon Dioxide 25 mmol/L (22-32); Chloride 108 mmol/L (98-107); Cholesterol 100 mg/dL (140-199); Estimated Glomerular Filt Rate > 60.0 mL/min (>60); Globulin 3.1 g/dL (1.7-4.1); Glucose 131 mg/dL (80-110); HDL Cholesterol 23 mg/dL (40-60); HEMOLYSIS < 15 (0-50); LDL Cholesterol Calculated 53 mg/dL (<100); Potassium 4.6 mmol/L (3.4-5.1); Sodium 142 mmol/L (137-145); Triglycerides 121 mg/dL (35-150)
[2020-11-28 17:40] LABS: TSH w/ Reflex to FT4 < 0.02 uIU/mL (0.47-4.68)
[2020-11-29 05:19] LABS: Free T4, Direct Thyroxine 2.48 ng/dL (0.78-2.19)
== END ==
PROVIDERS: PCP Internal Medicine; Visit Provider Internal Medicine
DX: I25.10 Atherosclerotic heart disease of native coronary artery without angina pectoris (principal); I11.0 Hypertensive heart disease with heart failure; E78.2 Mixed hyperlipidemia
CPT/HCPCS: 80053; 80061; 84439; 84443; 85025

== ENCOUNTER 2021-07-23 15:24 | Inpatient (IN) | payer OTHER, SELFPAY ==
[2018-06-15 04:12] VITALS: PULSE 75; RESP 30; O2SAT 96
[2018-07-20 18:05] VITALS: BMI 39.9
[2021-07-23] VITALS (31 sets, daily range): BP systolic 106–182; BP diastolic 55–87; PULSE 63–92; RESP 12–36; TEMP 36.1; O2SAT 94–100
--- NOTE | 2021-07-23 15:46 | DI.RAD.S_ITS ---
PROCEDURE: XR CHEST 1V INDICATIONS: chest pain TECHNIQUE: One view of the chest was acquired. COMPARISON: [facility], CR, XR CHEST 1V, 06/13/2018, 4:39. [facility], CR, XR CHEST 1V, 07/20/2018, 11:52. [facility], CR, XR CHEST 1V, 07/22/2018, 11:17. FINDINGS: Surgical changes and devices: Extensive Hernandez rods are seen. Lungs and pleura: Low lung volumes are noted. This causes a crowded appearance to the lung markings and limits evaluation. Poorly defined opacity can be seen involving both lungs, particularly within the left lower lung. Mediastinum: Mediastinal contours appear normal. Heart size is mildly enlarged. Bones and chest wall: No suspicious bony lesions. Age-appropriate bony degenerative changes are seen. Overlying soft tissues appear unremarkable. IMPRESSION: Low lung volumes, with atelectasis versus mild infiltrate at the left lung base. If clinically appropriate, a short-term followup chest series (with PA and lateral views) performed in deep inspiration is suggested for further evaluation. Postoperative and degenerative changes are seen. Dictated by: Nikita Atkins M.D. on 07/23/2021 at 15:51 Approved by: Nikita Atkins M.D. on 07/23/2021 at 15:52
--- NOTE | 2021-07-23 16:21 | PC.NURSE ---
Pt w/ shortness of breath at rest and much worse w/ any exertion. RR 30-40 at rest but maintaining 02 sat 94%. Noted significant weight gain as well as edema in lower extremities, abd/pelvis and arms. Sitting @70 degrees for ease of shortness of breath.
[2021-07-23 16:29] LABS: Add Manual Diff / Slide Review NO; Basophils Absolute Auto 100 /uL (0-100); Eosinophils Absolute Auto 100 /uL (0-450); Eosinophils Percent Auto 2.2 % (2-4); Hematocrit 29.1 % (41-53); Hemoglobin 9.9 g/dL (13.5-17.5); Lymphocytes Absolute Auto 1500 /uL (1100-4500); Mean Corpuscular HGB Conc 33.9 % (30-36); Mean Corpuscular Hemoglobin 31.5 PG (26-34); Mean Corpuscular Volume 92.8 fL (80-100); Monocytes Absolute Auto 600 /uL (0-900); Monocytes Percent Auto 8.8 % (3-14); Neutrophils Absolute Auto 4000 /uL (1500-7000); Platelet Count 177 X10^3/uL (150-400); Red Blood Cell Count 3.13 X10^6/uL (4.5-5.9); Red Cell Distribution Width 15.8 % (11.6-14.8); White Blood Cell Count 6.3 X10^3/uL (4.5-11.0)
[2021-07-23 16:35] LABS: Alanine Aminotransferase 15 IU/L (<50); Albumin 4.3 g/dL (3.5-5.0); Albumin Globulin Ratio 1.5 (1.0-2.8); Alkaline Phosphatase 37 U/L (38-126); Aspartate Aminotransferase 18 IU/L (17-59); BUN Creatinine Ratio 22.1 (6-22); Bilirubin Total 0.5 mg/dL (0.2-1.3); Blood Urea Nitrogen 30 mg/dL (9-20); Calcium 9.6 mg/dL (8.4-10.2); Carbon Dioxide 29 mmol/L (22-32); Chloride 99 mmol/L (98-107); Creatine Kinase 58 U/L (55-170); Estimated Glomerular Filt Rate 50.9 mL/min (>60); Globulin 2.9 g/dL (1.7-4.1); Glucose 243 mg/dL (80-110); HEMOLYSIS < 15 (0-50); Lipase 12 U/L (23-300); Potassium 4.3 mmol/L (3.4-5.1); Sodium 137 mmol/L (137-145); Total Protein 7.2 g/dL (6.3-8.2)
[2021-07-23 16:36] LABS: COVID19 -Nasal RAPID Negative (Negative)
--- NOTE | 2021-07-23 16:36 | ED_ITS ---
HPI - SOB/Dyspnea General Chief Complaint: Shortness of Breath/Dyspnea Stated Complaint: swelling, diabetic Time Seen by Provider: 07/23/21 16:34 Source: patient Mode of arrival: Ambulatory Limitations: no limitations History of Present Illness HPI Narrative: This is a 76-year-old male who comes in with increasing swelling bilateral lower extremities for the past 2 weeks. Patient states they doubled his Lasix from 40-80 mg daily about 2 weeks ago. He has been taking 40 in the morning and 40 in the afternoon. Patient noted that he short of breath particularly at night time he does not have any orthopnea. He notes it is worse with exertion he will get some chest pain on get lightheaded, all taken nitro sublingual which helps last night he took 1 around 11 30 this improved his symptoms. He has not passed but he has felt lightheaded. No fevers, no chills, no cough cold or congestion. Patient does not have any known cardiac arrhythmias. He has a history of [place] after back surgery with a stent placed, CHF, gout, dyslipidemia and hypothyroidism, diabetes and is on oral medications but no insulin. He has had back surgery x6, several stomach surgeries, knee arthroscopy x2 and appendectomy. Has been more hyperglycemic 190 is 264 than normal. Does use a trilogy at night with 2 L of O2. No tobacco, rare alcohol, no illicit. Dr. sherri woodruff is his primary care and his stent was placed at [facility]. Related Data Home Medications Medication Instructions Recorded Confirmed albuterol sulfate 90 mcg/actuation 2 puff INH Q6HP PRN #0 puff 05/20/13 07/20/18 aerosol inhaler (Ventolin HFA) lisinopril 5 mg tablet 5 mg PO BEDTIME #0 tab 05/20/13 07/20/18 polyethylene glycol 3350 17 17 gm PO QDAYP PRN #0 05/20/13 07/20/18 gram/dose oral powder (Miralax) glimepiride 1 mg tablet 1 mg PO BIDCC #0 09/05/17 07/20/18 acetaminophen 500 mg capsule 2 cap PO TID 06/07/18 07/20/18 aspirin 81 mg tablet,delayed 81 mg PO 0630 06/07/18 07/20/18 release atorvastatin 40 mg tablet 1 tab PO BEDTIME 06/07/18 07/20/18 beclomethasone dipropionate 80 2 puff INHALATION BID PRN 06/07/18 07/20/18 mcg/actuation HFA breath activated aerosol (Qvar RediHaler) cholecalciferol (vitamin D3) 25 1,000 unit PO DAILY 06/07/18 07/20/18 mcg (1,000 unit) capsule (Vitamin D3) docusate sodium 100 mg capsule 100 mg PO DAILY PRN 06/07/18 07/20/18 doxazosin 8 mg tablet 8 mg PO 0630 06/07/18 07/20/18 furosemide 40 mg tablet 40 mg PO 0630 06/07/18 07/20/18 multivitamin 1 tab PO DAILY 06/07/18 07/20/18 nitroglycerin 0.4 mg sublingual 0.4 mg SUBLINGUAL Q5-15M PRN 06/07/18 07/20/18 tablet omega [id number]-fish oil 1,000 mg 1 cap PO DAILY 06/07/18 07/20/18 (120 mg-180 mg) capsule (Fish Oil) pantoprazole 20 mg tablet,delayed 20 mg PO QNOON 06/07/18 07/20/18 release propranolol 60 mg tablet 1 tab PO TID 06/07/18 07/20/18 levothyroxine 100 mcg tablet 100 mcg PO DAILY 07/20/18 07/20/18 levothyroxine 200 mcg tablet 200 mcg PO DAILY 07/20/18 07/20/18 allopurinol 100 mg tablet 100 mg PO QAM 07/23/21 07/23/21 Previous Rx's Medication Instructions Recorded gabapentin 100 mg capsule 100 mg PO TID #90 cap 07/23/18 oxybutynin chloride 5 mg tablet 1 tab PO BEDTIME #0 tab 07/23/18 Allergies Allergy/AdvReac Type Severity Reaction Status Date / Time fentanyl [FENTANYL] Allergy Severe HIVES, Verified 07/23/21 18:32 ITCHING iodine [IODINE] Allergy Severe RASH - Verified 07/23/21 18:32 TOPICAL AND IV CONTRAST shellfish derived Allergy Severe Abdominal Verified 07/23/21 18:32 [SHELLFISH DERIVED] Pain cyclobenzaprine Allergy Intermediate ITCHING Verified 07/23/21 18:32 [CYCLOBENZAPRINE] diclofenac [DICLOFENAC] Allergy Intermediate ITCHING Verified 07/23/21 18:32 methadone [METHADONE] Allergy Intermediate ITCHING Verified 07/23/21 18:32 hydromorphone [HYDROMORPHONE] Allergy Mild ITCHING Verified 07/23/21 18:32 hydroxyzine [HYDROXYZINE] Allergy Mild FEVER, Verified 07/23/21 18:32 SWEATS ibuprofen [IBUPROFEN] Allergy Unknown Verified 07/23/21 18:32 aspirin [ASPIRIN] AdvReac Severe STOMACH Verified 07/23/21 18:32 PAIN & HIVE W/325MG, CAN TAKE 81 MG solifenacin [From [facility]] AdvReac Unknown INCREASE Verified 07/23/21 18:32 PVR AND URINARY SX RACHEL AdvReac Unknown DOES NOT Uncoded 11/25/17 12:09 WORK Review of Systems Review of Systems ROS Unobtainable: All systems reviewed & are unremarkable except as noted in HPI and below Patient History Medical History Anemia Atrial fibrillation CAD (coronary artery disease), teller coronary artery Cognitive impairment, mild, so stated Constipation COPD (chronic obstructive pulmonary disease) Diabetes mellitus Diastolic CHF Essential tremor GERD (gastroesophageal reflux disease) Gout HLD (hyperlipidemia) HTN (hypertension) Low back pain Surgical History H/O abdominal surgery H/O arthroscopic knee surgery H/O rotator cuff surgery History of back surgery Family History Other Family history unobtainable Social History household members: spouse Smoking Status: Former smoker alcohol intake: never Smoking Status: Former smoker Substance Use Type: does not use Exam Narrative Exam Narrative: GENERAL: Alert and oriented x three, HEENT: Head normocephalic, atraumatic, EOMI, pupils reactive, face symmetric, moist mucous membranes NECK: Supple, full range of motion CARDIOVASCULAR: Regular rate and rhythm without murmurs, rubs or gallops. RESPIRATORY: Breath sounds equal bilaterally, no wheezes rales or rhonchi. ABDOMEN: Soft, nontender. Normoactive bowel sounds all 4 quadrants. No guarding or rebound, rigidity, no mass : No CVA tenderness EXTREMITIES: Normal range of motion, no clubbing or edema. Neurovascularly intact NEUROLOGICAL: Cranial nerves II through XII grossly intact. Moving all ex tremities SKIN: Warm, dry, no petechiae, no rashes or lesions. Initial Vital Signs Initial Vital Signs: Vital Signs Temperature 96.9 F L 07/23/21 15:41 Pulse Rate 83 07/23/21 15:41 Respiratory Rate 22 07/23/21 15:41 Blood Pressure 130/58 L 07/23/21 15:41 Pulse Oximetry 97 07/23/21 15:41 Course Orders Ordered: ED Orders 07/23/21 15:46 XR chest 1V Stat 07/23/21 16:09 EKG-12 Lead Stat 07/23/21 16:10 Complete Blood Count AUTO DIFF Stat Comprehensive Metabolic Panel Stat Lactate (Lactic Acid) Stat Lipase Stat MAG [Magnesium] Stat NT-proBNP (BNP-Adult 18+) Stat Partial Thromboplastin Time Stat Procalcitonin Stat Respiratory Panel (Film Array) Stat TSH w/ Reflex to FT4 Stat Troponin & CK Cardiac Panel Stat 07/23/21 16:17 COVID19 -Nasal swab/Pre-Proc Stat 07/23/21 18:30 Partial Thromboplastin Time DAILY 07/24/21 00:30 PTT [Partial Thromboplastin Time] Q6H 07/24/21 05:00 Hemoglobin and Hematocrit DAILY 07/24/21 06:30 PTT [Partial Thromboplastin Time] Q6H 07/24/21 12:30 PTT [Partial Thromboplastin Time] Q6H 07/24/21 18:30 PTT [Partial Thromboplastin Time] Q6H Partial Thromboplastin Time DAILY 07/25/21 18:30 Partial Thromboplastin Time DAILY 07/26/21 18:30 Partial Thromboplastin Time DAILY 07/27/21 18:30 Partial Thromboplastin Time DAILY 07/28/21 18:30 Partial Thromboplastin Time DAILY 07/29/21 18:30 Partial Thromboplastin Time DAILY Heparin Sodium/Dextrose (Heparin Drip) 25,000 unit in 500 mls @ 20 mls/hr IV CONT LUIS FELIPE; Protocol Magnesium Sulfate (Magnesium Sulfate) 2 gm in 50 mls @ 25 mls/hr IV NOW ONE Stop: 07/23/21 20:32 Discontinued Medications Furosemide (Furosemide 40 Mg/4 Ml Vial) 40 mg IV NOW ONE Stop: 07/23/21 17:19 Last Admin: 07/23/21 17:51 Dose: 40 mg Documented by: Heparin Sodium (Porcine) (Heparin 5,000 Unit/Ml Vial) 5,000 unit IV NOW ONE Stop: 07/23/21 18:17 Consultations Consultation #1: Dr. Sanchez with cardiology. She recommends echo, heparin drip and continue to trend out troponins. If patient continues to be asymptomatic without any other changes there would be a possibility of contacting them for cardioversion. If troponins become positive plan to recontact Cardiology. Time: 17:45 Consultation #2: Dr. Marinelli, hospitalist accepts for admission. Discussed cardiology's recommendations. Magnesium and TSH is pending. Echo has not been obtained here in the department and will not be available until tomorrow. Time: 18:25 Vital Signs Vital signs: Vital Signs - 8 hr 07/23/21 15:41 07/23/21 16:02 07/23/21 16:15 Temperature 96.9 F L Pulse Rate 83 67 67 Respiratory Rate 22 22 16 Blood Pressure 130/58 L 108/58 L Pulse Oximetry 97 96 95 07/23/21 16:30 07/23/21 16:45 07/23/21 17:00 Temperature Pulse Rate 65 88 64 Respiratory Rate 19 28 H 22 Blood Pressure 106/58 L 112/59 L 112/68 Pulse Oximetry 94 96 95 07/23/21 17:15 07/23/21 17:30 07/23/21 17:45 Temperature Pulse Rate 66 66 64 Respiratory Rate 17 36 H 20 Blood Pressure 121/66 127/64 125/60 Pulse Oximetry 96 95 95 07/23/21 18:00 07/23/21 18:01 07/23/21 18:15 Temperature Pulse Rate 89 92 H 64 Respiratory Rate 27 H 28 H 19 Blood Pressure 114/55 L 122/60 Pulse Oximetry 95 96 97 MDM - SOB/Dyspnea Lab Data Result diagrams: 07/23/21 16:10 07/23/21 16:10 Labs: Lab Results 07/23/21 07/23/21 07/23/21 Range/Units 16:10 16:10 16:10 WBC 6.3 (4.5-11.0) X10^3/uL RBC 3.13 L (4.5-5.9) X10^6/uL Hgb 9.9 L (13.5-17.5) g/dL Hct 29.1 L (41-53) % MCV 92.8 (80-100) fL MCH 31.5 (26-34) PG MCHC 33.9 (30-36) % RDW 15.8 H (11.6-14.8) % Plt Count 177 (150-400) X10^3/uL Neut % (Auto) 64.0 (50-75) % Lymph % (Auto) 24.0 L (25-40) % [place] % (Auto) 8.8 (3-14) % Eos % (Auto) 2.2 (2-4) % Baso % (Auto) 1.0 (0-2) % Neut # (Auto) 4000 (7876-7475) /uL Lymph # (Auto) 1500 (9442-4356) /uL [place] # (Auto) 600 (0-900) /uL Eos # (Auto) 100 (0-450) /uL Baso # (Auto) 100 (0-100) /uL APTT (26.4-36.2) SECONDS Sodium 137 (137-145) mmol/L Potassium 4.3 (3.4-5.1) mmol/L Chloride 99 (98-107) mmol/L Carbon Dioxide 29 (22-32) mmol/L BUN 30 H (9-20) mg/dL Creatinine 1.36 H (0.66-1.25) mg/dL Estimated GFR 50.9 L (>60) mL/min BUN/Creatinine Ratio 22.1 H (6-22) Glucose 243 H (80-110) mg/dL Lactate (0.7-2.1) mmol/L Calcium 9.6 (8.4-10.2) mg/dL Magnesium (1.6-2.3) mg/dL Total Bilirubin 0.5 (0.2-1.3) mg/dL AST 18 (17-59) IU/L ALT 15 (<50) IU/L Alkaline Phosphatase 37 L (38-126) U/L Total Creatine Kinase 58 (55-170) U/L CK-MB (CK-2) TNP CK-MB (CK-2) Rel Index TNP Troponin I < 0.012 (0.01-0.034) ng/mL NT-Pro-B Natriuret Pep 225 (<450) pg/mL Total Protein 7.2 (6.3-8.2) g/dL Albumin 4.3 (3.5-5.0) g/dL Globulin 2.9 (1.7-4.1) g/dL Albumin/Globulin Ratio 1.5 (1.0-2.8) Lipase 12 L (23-300) U/L Procalcitonin (<0.5) ng/mL TSH (0.47-4.68) uIU/mL Chlamy pneumoniae PCR (Not Detect) Adenovirus (PCR) (Not Detect) B. pertussis DNA (PCR) (Not Detecte) B.parapertussis DNA PCR (Not Detecte) Coronavirus OC43 (PCR) (Not Detect) Coronavirus HKU1 (PCR) (Not Detect) Coronavirus 229E (PCR) (Not Detect) SARS-CoV-2 (PCR) (Not Detecte) Coronavirus NL63 (PCR) (Not Detect) Human Metapneumovir PCR (Not Detect) Influenza Type A (PCR) (Not Detect) Influenza Type B (PCR) (Not Detect) M. pneumoniae (PCR) (Not Detect) Parainfluenza 1 (PCR) (Not Detect) Parainfluenza 2 (PCR) (Not Detect) Parainfluenza 3 (PCR) (Not Detect) Parainfluenza 4 (PCR) (Not Detect) RSV (PCR) (Not Detect) Entero/Rhino (PCR) (Not Detect) 07/23/21 07/23/21 07/23/21 Range/Units 16:10 16:10 16:10 WBC (4.5-11.0) X10^3/uL RBC (4.5-5.9) X10^6/uL Hgb (13.5-17.5) g/dL Hct (41-53) % MCV (80-100) fL MCH (26-34) PG MCHC (30-36) % RDW (11.6-14.8) % Plt Count (150-400) X10^3/uL Neut % (Auto) (50-75) % Lymph % (Auto) (25-40) % [place] % (Auto) (3-14) % Eos % (Auto) (2-4) % Baso % (Auto) (0-2) % Neut # (Auto) (0428-4961) /uL Lymph # (Auto) (3049-2241) /uL [place] # (Auto) (0-900) /uL Eos # (Auto) (0-450) /uL Baso # (Auto) (0-100) /uL APTT (26.4-36.2) SECONDS Sodium (137-145) mmol/L Potassium (3.4-5.1) mmol/L Chloride (98-107) mmol/L Carbon Dioxide (22-32) mmol/L BUN (9-20) mg/dL Creatinine (0.66-1.25) mg/dL Estimated GFR (>60) mL/min BUN/Creatinine Ratio (6-22) Glucose (80-110) mg/dL Lactate 2.0 (0.7-2.1) mmol/L Calcium (8.4-10.2) mg/dL Magnesium (1.6-2.3) mg/dL Total Bilirubin (0.2-1.3) mg/dL AST (17-59) IU/L ALT (<50) IU/L Alkaline Phosphatase (38-126) U/L Total Creatine Kinase (55-170) U/L CK-MB (CK-2) CK-MB (CK-2) Rel Index Troponin I (0.01-0.034) ng/mL NT-Pro-B Natriuret Pep (<450) pg/mL Total Protein (6.3-8.2) g/dL Albumin (3.5-5.0) g/dL Globulin (1.7-4.1) g/dL Albumin/Globulin Ratio (1.0-2.8) Lipase (23-300) U/L Procalcitonin (<0.5) ng/mL TSH 2.58 (0.47-4.68) uIU/mL Chlamy pneumoniae PCR Not detected (Not Detect) Adenovirus (PCR) Not detected (Not Detect) B. pertussis DNA (PCR) Not detected (Not Detecte) B.parapertussis DNA PCR Not detected (Not Detecte) Coronavirus OC43 (PCR) Not detected (Not Detect) Coronavirus HKU1 (PCR) Not detected (Not Detect) Coronavirus 229E (PCR) Not detected (Not Detect) SARS-CoV-2 (PCR) Not detected (Not Detecte) Coronavirus NL63 (PCR) Not detected (Not Detect) Human Metapneumovir PCR Not detected (Not Detect) Influenza Type A (PCR) Not detected (Not Detect) Influenza Type B (PCR) Not detected (Not Detect) M. pneumoniae (PCR) Not detected (Not Detect) Parainfluenza 1 (PCR) Not detected (Not Detect) Parainfluenza 2 (PCR) Not detected (Not Detect) Parainfluenza 3 (PCR) Not detected (Not Detect) Parainfluenza 4 (PCR) Not detected (Not Detect) RSV (PCR) Not detected (Not Detect) Entero/Rhino (PCR) Not detected (Not Detect) 07/23/21 07/23/21 07/23/21 Range/Units 16:10 16:10 16:10 WBC (4.5-11.0) X10^3/uL RBC (4.5-5.9) X10^6/uL Hgb (13.5-17.5) g/dL Hct (41-53) % MCV (80-100) fL MCH (26-34) PG MCHC (30-36) % RDW (11.6-14.8) % Plt Count (150-400) X10^3/uL Neut % (Auto) (50-75) % Lymph % (Auto) (25-40) % [place] % (Auto) (3-14) % Eos % (Auto) (2-4) % Baso % (Auto) (0-2) % Neut # (Auto) (1998-3307) /uL Lymph # (Auto) (1021-1911) /uL [place] # (Auto) (0-900) /uL Eos # (Auto) (0-450) /uL Baso # (Auto) (0-100) /uL APTT 33 (26.4-36.2) SECONDS Sodium (137-145) mmol/L Potassium (3.4-5.1) mmol/L Chloride (98-107) mmol/L Carbon Dioxide (22-32) mmol/L BUN (9-20) mg/dL Creatinine (0.66-1.25) mg/dL Estimated GFR (>60) mL/min BUN/Creatinine Ratio (6-22) Glucose (80-110) mg/dL Lactate (0.7-2.1) mmol/L Calcium (8.4-10.2) mg/dL Magnesium 1.1 L (1.6-2.3) mg/dL Total Bilirubin (0.2-1.3) mg/dL AST (17-59) IU/L ALT (<50) IU/L Alkaline Phosphatase (38-126) U/L Total Creatine Kinase (55-170) U/L CK-MB (CK-2) CK-MB (CK-2) Rel Index Troponin I (0.01-0.034) ng/mL NT-Pro-B Natriuret Pep (<450) pg/mL Total Protein (6.3-8.2) g/dL Albumin (3.5-5.0) g/dL Globulin (1.7-4.1) g/dL Albumin/Globulin Ratio (1.0-2.8) Lipase (23-300) U/L Procalcitonin 0.07 (<0.5) ng/mL TSH (0.47-4.68) uIU/mL Chlamy pneumoniae PCR (Not Detect) Adenovirus (PCR) (Not Detect) B. pertussis DNA (PCR) (Not Detecte) B.parapertussis DNA PCR (Not Detecte) Coronavirus OC43 (PCR) (Not Detect) Coronavirus HKU1 (PCR) (Not Detect) Coronavirus 229E (PCR) (Not Detect) SARS-CoV-2 (PCR) (Not Detecte) Coronavirus NL63 (PCR) (Not Detect) Human Metapneumovir PCR (Not Detect) Influenza Type A (PCR) (Not Detect) Influenza Type B (PCR) (Not Detect) M. pneumoniae (PCR) (Not Detect) Parainfluenza 1 (PCR) (Not Detect) Parainfluenza 2 (PCR) (Not Detect) Parainfluenza 3 (PCR) (Not Detect) Parainfluenza 4 (PCR) (Not Detect) RSV (PCR) (Not Detect) Entero/Rhino (PCR) (Not Detect) 07/23/21 Range/Units 16:17 WBC (4.5-11.0) X10^3/uL RBC (4.5-5.9) X10^6/uL Hgb (13.5-17.5) g/dL Hct (41-53) % MCV (80-100) fL MCH (26-34) PG MCHC (30-36) % RDW (11.6-14.8) % Plt Count (150-400) X10^3/uL Neut % (Auto) (50-75) % Lymph % (Auto) (25-40) % [place] % (Auto) (3-14) % Eos % (Auto) (2-4) % Baso % (Auto) (0-2) % Neut # (Auto) (5735-7569) /uL Lymph # (Auto) (0570-8008) /uL [place] # (Auto) (0-900) /uL Eos # (Auto) (0-450) /uL Baso # (Auto) (0-100) /uL APTT (26.4-36.2) SECONDS Sodium (137-145) mmol/L Potassium (3.4-5.1) mmol/L Chloride (98-107) mmol/L Carbon Dioxide (22-32) mmol/L BUN (9-20) mg/dL Creatinine (0.66-1.25) mg/dL Estimated GFR (>60) mL/min BUN/Creatinine Ratio (6-22) Glucose (80-110) mg/dL Lactate (0.7-2.1) mmol/L Calcium (8.4-10.2) mg/dL Magnesium (1.6-2.3) mg/dL Total Bilirubin (0.2-1.3) mg/dL AST (17-59) IU/L ALT (<50) IU/L Alkaline Phosphatase (38-126) U/L Total Creatine Kinase (55-170) U/L CK-MB (CK-2) CK-MB (CK-2) Rel Index Troponin I (0.01-0.034) ng/mL NT-Pro-B Natriuret Pep (<450) pg/mL Total Protein (6.3-8.2) g/dL Albumin (3.5-5.0) g/dL Globulin (1.7-4.1) g/dL Albumin/Globulin Ratio (1.0-2.8) Lipase (23-300) U/L Procalcitonin (<0.5) ng/mL TSH (0.47-4.68) uIU/mL Chlamy pneumoniae PCR (Not Detect) Adenovirus (PCR) (Not Detect) B. pertussis DNA (PCR) (Not Detecte) B.parapertussis DNA PCR (Not Detecte) Coronavirus OC43 (PCR) (Not Detect) Coronavirus HKU1 (PCR) (Not Detect) Coronavirus 229E (PCR) (Not Detect) SARS-CoV-2 (PCR) Negative (Not Detecte) Coronavirus NL63 (PCR) (Not Detect) Human Metapneumovir PCR (Not Detect) Influenza Type A (PCR) (Not Detect) Influenza Type B (PCR) (Not Detect) M. pneumoniae (PCR) (Not Detect) Parainfluenza 1 (PCR) (Not Detect) Parainfluenza 2 (PCR) (Not Detect) Parainfluenza 3 (PCR) (Not Detect) Parainfluenza 4 (PCR) (Not Detect) RSV (PCR) (Not Detect) Entero/Rhino (PCR) (Not Detect) Urine Dip Bedside Urine Glucose Negative Bedside Urine Bilirubin - Negative Bedside Urine Ketone - Negative Urine Specific [place] 1.015 Bedside Urine Occult Blood - Negative Bedside Urine pH 6.0 Bedside Urine Protein - Negative Bedside Urine Urobilinogen - Negative Bedside Urine Nitrite - Negative Bedside Urine Leukocytes - Negative Esterase Imaging Data Chest x-ray: Radiologist's Impression: Bossman Denton??76??M??1945 ? Allergy/Adv: fentanyl, iodine, shellfish derived, cyclobenzaprine, diclofenac, methadone, hydromorphone, hydroxyzine, ibuprofen, aspirin, solifenacin, [RACHEL] (More??) Close Chest X-Ray (Signed) Nikita Atkins - 07/23/21 Radiology - Historical 06/28/20 Radiology - Historical 06/28/20 Radiology - Historical 06/28/20 Radiology - Historical 06/28/20 Radiology - Historical 06/28/20 Radiology - Historical 06/28/20 Radiology - Historical 06/28/20 Vascular Ultrasound (Signed) Chung Santiago - 12/17/18 Chest X-Ray (Signed) Pia Rodriguez - 07/22/18 Telemetry Strips 07/20/[address] (Signed) Nikita Atkins - 07/20/18 Chest X-Ray (Signed) Costa Grimm - 07/20/18 Chest X-Ray (Signed) William Mares - 06/13/18 Chest X-Ray (Signed) Costa Grimm - 06/07/[address] (Signed) GrimmCosta - 06/07/18 Telemetry Strips 06/07/18 Chest X-Ray (Signed) Jean-Pierre Johnson - 06/07/18 Chest X-Ray (Signed) Jean-Pierre Johnson - 06/07/18 Echocardiogram Ultrasound (Signed) Perfecto Estevez - 06/07/18 Chest X-Ray (Signed) JacobJuan C - 04/12/[address] (Signed) William Mares - 01/20/18 Radiology - Historical 09/12/17 Radiology - Historical 09/11/17 Radiology - Historical 09/06/17 Radiology - Historical 09/06/17 Radiology - Historical 09/05/17 Radiology - Historical 09/05/17 Radiology - Historical 02/25/15 Radiology - Historical 02/25/15 Launch?[place] [address] XRay Report Signed Patient: Bossman Denton MR#: [id number] : 1945 Acct:[id number] Age/Sex: 76 / M Date of Service: 07/23/21 Loc: ED Accession Number: [id number] ?? Procedure: XR chest 1V Ordering Provider: Elsi Temple D.O. PROCEDURE:? XR CHEST 1V ? INDICATIONS:? chest pain ? TECHNIQUE:? One view of the chest was acquired.? ? [facility], [facility] 11[facility], XR CHEST 1V, 07/22/2018, 11:17. ? FINDINGS:? ? Surgical changes and devices:? Extensive Hernandez rods are seen. ? Lungs and pleura:? Low lung volumes are noted. This causes a crowded appearance to the lung markings and limits evaluation.? Poorly defined opacity can be seen involving both lungs, particularly within the left lower lung. ? Mediastinum:? Mediastinal contours appear normal.? Heart size is mildly enlarged.? ? Bones and chest wall:? No suspicious bony lesions.? Age-appropriate bony degenerative changes are seen.? Overlying soft tissues appear unremarkable.? ? ? IMPRESSION:? Low lung volumes, with atelectasis versus mild infiltrate at the left lung base. ? If clinically appropriate, a short-term followup chest series (with PA and lateral views) performed in deep inspiration is suggested for further evaluation.? ? Postoperative and degenerative changes are seen.? ? ? Dictated by: Nikita Atkins M.D. on 07/23/2021 at 15:51 ? ? Approved by: Nikita Atkins M.D. on 07/23/2021 at 15:52? ECG Data Attestation: I personally reviewed and interpreted this ECG as follows: Interpretation: 4:1 Flutter, rate controlled at 62 [place] 08/18/2029 QRS of 144, QTC of 442. MDM Narrative Medical decision making narrative: This is a 76-year-old male comes in with complaint of increasing shortness of breath, lower extremity swelling and chest pain particularly at night with exertion. Patient states even trying to walk to the bathroom makes him quite sh ort of breath he denies orthopnea. He states that they did increase his Lasix from 40 mg to 80 mg in the last 2 weeks which has not made much change. He noted his blood pressures have been high up to 150/80 and that his normal blood pressure is 90 systolic. Patient's EKG appears to show atrial flutter 4-1 rate at [address] changes are appreciated he has right bundle which is present on EKG from 2018 initial labs have a negative troponin, negative BNP with some acute kidney injury. Patient is unaware of any prior cardiac arrhythmias but states he may have had atrial fibrillation he has known cardiac stent, dyslipidemia diabetes, hypothyroidism, gout as well as sleep apnea and uses a trilogy machine with 2 L O2 at night. Magnesium was added on and is low, replacement was ordered. Patient's case was discussed with Cardiology, Dr. Sanchez and she recommends admission, echo, heparin and of trend out troponins. Discussed with Dr. Marinelli, the hospitalist who accepts for admission. Discharge Plan Departure Patient Disposition: Admitted As Inpatient Clinical Impression: Atrial flutter, Edema of both lower legs, Hypomagnesemia Admit Date/Time: 07/23/21 18:18 Admit Provider: Julio Cesar Marinelli
[2021-07-23 16:47] LABS: Troponin I < 0.012 ng/mL (0.01-0.034)
[2021-07-23 17:06] LABS: NT-proBNP (BNP-Adult 18+) 225 pg/mL (<450)
[2021-07-23 17:15] LABS: Adenovirus Not Detected (Not Detect); B. parapertussis Not Detected (Not Detecte); Bordetella pertussis Not Detected (Not Detecte); Chlamydophila pneumoniae Not Detected (Not Detect); Coronavirus 229E Not Detected (Not Detect); Coronavirus HKU1 Not Detected (Not Detect); Coronavirus NL 63 Not Detected (Not Detect); Coronavirus OC43 Not Detected (Not Detect); Human Metapneumovirus Not Detected (Not Detect); Human Rhinovirus/Enterovirus Not Detected (Not Detect); Influenza A Not Detected (Not Detect); Influenza B Not Detected (Not Detect); Mycoplasma pneumoniae Not Detected (Not Detect); Parainfluenza Virus 1 Not Detected (Not Detect); Parainfluenza Virus 2 Not Detected (Not Detect); Parainfluenza Virus 3 Not Detected (Not Detect); Parainfluenza Virus 4 Not Detected (Not Detect); Respiratory Syncytial Virus Not Detected (Not Detect); SARS- CoV-2 Not Detected (Not Detecte)
[2021-07-23] MEDS: FUROSEMIDE 40 MG/4 ML VIAL IV (17:51)
[2021-07-23 17:54] LABS: Procalcitonin 0.07 ng/mL (<0.5)
[2021-07-23 18:09] LABS: TSH w/ Reflex to FT4 2.58 uIU/mL (0.47-4.68)
[2021-07-23 18:19] LABS: Magnesium 1.1 mg/dL (1.6-2.3)
--- NOTE | 2021-07-23 18:19 | DI.ECHO.S_ITS ---
[facility] +---------+ : : [address] : : : : [id number] : : : : Phone: [phone]+ Echocardiogram Report + + :Name: ELAINE CAO Study Date: 07/24/2021 Height: 73 in : :[facility] ReadingLocation: Weight: 280 lb : : Gender: Male BSA: 2.5 m2 : :: 1945 Age: 76 yrs BP: 139/73 mmHg: :Reason For Study: Atrial flutter : : Performed By: Blayne Dupont : :Referring: CALLIE HYDE : + + Interpretation Summary The left ventricle is normal in size. The ejection fraction is estimated to be 60-65%. There has been no significant change in LVEF since the previous exam. The right ventricle is mildly dilated. Right ventricular systolic function is at the lower limits of normal. The aortic valve is moderately calcified. There is mildly reduced leaflet mobility. No significant aortic stenosis. The IVC is dilated (diameter is greater than 2.1 cm) yet it collapses greater than 50% with a sniff. This suggests a right atrial pressure of 8 mm Hg. Lipomatous hypertrophy of the interatrial septum is noted. It was seen in the previous study as well. Procedure: A two-dimensional transthoracic echocardiogram with color flow and Doppler was performed. Comparison is made with the echocardiogram of 06/08/2018. Fair image quality. The heart rate ranged between 64 - 86 bpm during the study. Baseline significant artifacts. Left Ventricle: The left ventricle is normal in size. Proximal septal thickening is noted. There is no echo evidence for significant left ventricular outflow tract obstruction. There is no thrombus. The ejection fraction is estimated to be 60-65%. There has been no significant change since the previous exam. Septal motion is consistent with conduction abnormality. E/E' med: 9.2. Right Ventricle: The right ventricle is mildly dilated. Right ventricular systolic function is at the lower limits of normal. Atria: The left atrial size is normal. The right atrium is mildly dilated. There is no Doppler evidence for an interatrial shunt. Lipomatous hypertrophy of the interatrial septum is noted. It was seen in the previous study as well. Mitral Valve: There is a flat closure plane of the the mitral valve leaflets. There is mild mitral annular calcification. There is trace mitral regurgitation. Aortic Valve: The aortic valve is trileaflet. The aortic valve is moderately calcified. There is mildly reduced leaflet mobility. There is no hemodynamically significant valvular aortic stenosis. There is trace aortic regurgitation. Tricuspid Valve: The tricuspid valve is normal. There is trace tricuspid regurgitation. The right ventricular systolic pressure is estimated to be at least 29 mmHg based on an estimated right atrial pressure of 8 mm Hg. Pulmonic Valve: The pulmonic valve leaflets are thin and pliable; valve motion is normal. There is a trace or physiologic amount of pulmonic regurgitation. Great Vessels: The aortic root is normal size. The ascending aorta is normal in size. The aortic arch is normal in size. The IVC is dilated (diameter is greater than 2.1 cm) yet it collapses greater than 50% with a sniff. This suggests a right atrial pressure of 8 mm Hg. Pericardium/ Pleura There is no pericardial effusion. There is an anterior echo-free space consistent with a fat pad. There is no pleural effusion. MMode/2D Measurements & Calculations LVIDd: 4.6 cm LVOT diam: 2.3 cm LVIDs: 2.5 cm Ao root diam: 3.4 cm FS: 46.4 % asc Aorta Diam: 3.5 cm IVSd: 1.1 cm Ao Arch Diam (Prox Trans): 3.1 cm LVPWd: 0.89 cm LV estes. diameter/BSA (cm/m^2): 1.9 LV sys. diameter/BSA (cm/m^2): 0.99 LA A2 area: 19.4 cm2 RA long axis: 6.9 cm LA A4 area: 23.3 cm2 RA area: 23.3 cm2 LA length (vol): 6.3 cm RA vol: 67.2 ml LA vol: 60.7 ml RA : 27.1 ml/m2 LA vol index: 24.5 ml/m2 IVC diam: 2.5 cm TAPSE: 1.7 cm Doppler Measurements & Calculations Ao V2 max: 174.6 cm/sec LVOT Max Cristóbal: 95.1 cm/sec Ao V2 mean: 119.1 cm/sec LV V1 max P.6 mmHg Ao max P.2 mmHg LV V1 VTI: 18.5 cm Ao mean P.4 mmHg MERON(I,D): 2.2 cm2 Ao V2 VTI: 33.3 cm MERON(V,D): 2.2 cm2 sev ratio: 0.56 MERON indexed to BSA (cm^2/m^2): 0.90 MV E max cristóbal: 95.2 cm/sec TR max cristóbal: 230.9 cm/sec MV A max cristóbal: 30.7 cm/sec TR max P.3 mmHg MV E/A: 3.1 PA V2 max: 89.0 cm/sec Med Peak E' Cristóbal: 10.3 cm/sec PA V2 mean: 60.0 cm/sec E/E' med: 9.2 PA mean P.6 mmHg Lat Peak E' Cristóbal: 13.9 cm/sec PA pr(Accel): 17.3 mmHg E/E' lat: 6.8 E/e' average: 8.0 MV dec time: 0.15 sec SV(LVOT): 74.4 ml Reading Physician:11:45 AM
[2021-07-23 18:33] LABS: PTT Partial Thromboplastin Tim 33 SECONDS (26.4-36.2)
[2021-07-23] MEDS: HEPARIN DRIP 25,000 UNIT/500 ML IV.SOLN 20 UNIT IV (19:26)
[2021-07-23] MEDS: HEPARIN 5,000 UNIT/ML VIAL 5000 UNIT IV (19:26)
[2021-07-23] MEDS: MAGNESIUM SULFATE 2 GM/50 ML PIGGYBACK IV (19:26)
[2021-07-23 20:12] LABS: Hemoglobin A1C% w Est Avg Glu 8.5 % (4.0-6.0)
[2021-07-23 20:13] LABS: Troponin I < 0.012 ng/mL (0.01-0.034)
--- NOTE | 2021-07-23 21:14 | PM.HP.1 ---
History of Present Illness History of Present Illness Date Patient Seen: 07/23/21 Time Patient Seen: 19:50 Chief complaint: swelling, diabetic Narrative: Bossman Denton is a 76-year-old male with a a history of PR after back surgery with a stent placed, DCHF EF 60-65%, gout, hypertension, CAD, GERD, COPD-night time trilogy, chronic anemia, hypothyroidism, type 2 diabetes mav-gskzrve-[id number], obesity, back surgery x6, several stomach surgeries, knee arthroscopy x2 and appendectomy.?Who presented to the ED with increasing swelling bilateral lower extremities with nightly occurrences of irregular heart rate, and SOB x2 weeks, denies orthopnea. PCP increased his Lasix from 40-80 mg daily about 5 days ago.? He has been taking 40 in the morning and 40 in the afternoon, patient notes that he has not had any increased urinary output. Patient denies a history of urinary retention or BPH. He notes it is worse with exertion he will get some chest pain on get lightheaded, taking nitro sublingual and rest improves his symptoms.? He has not passed out but he has felt lightheaded.? Patient fevers, body aches,chills, cough, cold, congestion, recent illness injury or trauma. Patient denies any exposure to any ill persons, no other changes in medication. Patient notes that his of bilateral lower extremity edema has been worsening and is constant, present upon awaking. Patient denies any known cardiac arrhythmias.?Has been more hyperglycemic around 264, only takes glimepride.? Does use a trilogy at night with 2 L of O2.? No tobacco, rare alcohol, no illicit.? Dr. Jarrell is his PCP. Patient's vitals upon admit temp 96.9?, BP 152/82, HR 72, R 20, O2 saturation 95% on room air. Patient's EKG demonstrated atrial flutter 41, a rate of [address] wave changes. Patient's chest x-ray demonstrated low lung volumes with atelectasis vs. mild infiltrates at the left lung base. Dr. Sanchez air export coordinator was consulted recommended patient be put on a heparin drip trend troponins a complete echo tomorrow. Patient to be transferred to a facility with cardiac, if troponins become positive or patient becomes unstable. Patient's HGB 9.9 and HCT 29.1 reflected his chronic anemia slightly lower than baseline. Patient demonstrated COREY likely prerenal. Previous 11/28/2020 labs BUN 19 creatinine 1.02, GFR >60. Today's BUN 30, creatinine 1.36, glucose 243, GFR 50.9, BNP normal at 225, initial troponin WNL, lipase 12, TSH WNL, procalcitonin WNL, viral panel negative. Patient was shown to have a magnesium of 1.1 was given 2 g in ED, 40 mg of Lasix in ED, and placed on heparin drip. Patient admitted for atrial flutter, COREY, hypomagnesia, diastolic CHF exacerbation. Patient History Medical History Anemia Atrial fibrillation CAD (coronary artery disease), [place] coronary artery Cognitive impairment, mild, so stated Constipation COPD (chronic obstructive pulmonary disease) Diabetes mellitus Diastolic CHF Essential tremor GERD (gastroesophageal reflux disease) Gout HLD (hyperlipidemia) HTN (hypertension) Low back pain Surgical History H/O abdominal surgery H/O arthroscopic knee surgery H/O rotator cuff surgery History of back surgery Family & Social History Family History Mother Diabetes mellitus Cancer Father Diabetes mellitus Cancer Social History: household members spouse Tobacco & Substance use: Smoking Status Former smoker alcohol intake never Substance Use Type does not use Meds Home Medications and Allergies Home Medications Medication Instructions Recorded Confirmed Type albuterol sulfate 90 mcg/actuation 2 puff INH Q6HP PRN #0 puff 05/20/13 07/23/21 History aerosol inhaler (Ventolin HFA) lisinopril 5 mg tablet 5 mg PO BEDTIME #0 tab 05/20/13 07/23/21 History polyethylene glycol 3350 17 17 gm PO QDAYP PRN #0 05/20/13 07/23/21 History gram/dose oral powder (Miralax) glimepiride 1 mg tablet 1 mg PO BIDCC #0 09/05/17 07/23/21 History acetaminophen 500 mg capsule 2 cap PO TID 06/07/18 07/23/21 History aspirin 81 mg tablet,delayed 81 mg PO 0630 06/07/18 07/23/21 History release atorvastatin 40 mg tablet 1 tab PO BEDTIME 06/07/18 07/23/21 History beclomethasone dipropionate 80 2 puff INHALATION BID PRN 06/07/18 07/23/21 History mcg/actuation HFA breath activated aerosol (Qvar RediHaler) cholecalciferol (vitamin D3) 25 1,000 unit PO QAM 06/07/18 07/23/21 History mcg (1,000 unit) capsule (Vitamin D3) docusate sodium 100 mg capsule 100 mg PO QAM 06/07/18 07/23/21 History doxazosin 8 mg tablet 8 mg PO 0630 06/07/18 07/23/21 History furosemide 40 mg tablet 40 mg PO BID 06/07/18 07/23/21 History multivitamin 1 tab PO QAM 06/07/18 07/23/21 History nitroglycerin 0.4 mg sublingual 0.4 mg SUBLINGUAL Q5-15M PRN 06/07/18 07/23/21 History tablet pantoprazole 20 mg tablet,delayed 20 mg PO QAM 06/07/18 07/23/21 History release propranolol 60 mg tablet 1 tab PO TID 06/07/18 07/23/21 History levothyroxine 100 mcg tablet 300 mcg PO QAM 07/20/18 07/23/21 History gabapentin 100 mg capsule 100 mg PO TID #90 cap 07/23/18 07/23/21 Rx oxybutynin chloride 5 mg tablet 1 tab PO BEDTIME #0 tab 07/23/18 07/23/21 Rx allopurinol 100 mg tablet 100 mg PO QAM 07/23/21 07/23/21 History duloxetine 60 mg capsule,delayed 60 mg PO BEDTIME 07/23/21 07/23/21 History release oxycodone 5 mg tablet 5 mg PO Q6HR 07/23/21 07/23/21 History Allergies Allergy/AdvReac Type Severity Reaction Status Date / Time fentanyl [FENTANYL] Allergy Severe HIVES, Verified 07/23/21 18:32 ITCHING iodine [IODINE] Allergy Severe RASH - Verified 07/23/21 18:32 TOPICAL AND IV CONTRAST shellfish derived Allergy Severe Abdominal Verified 07/23/21 18:32 [SHELLFISH DERIVED] Pain cyclobenzaprine Allergy Intermediate ITCHING Verified 07/23/21 18:32 [CYCLOBENZAPRINE] diclofenac [DICLOFENAC] Allergy Intermediate ITCHING Verified 07/23/21 18:32 methadone [METHADONE] Allergy Intermediate ITCHING Verified 07/23/21 18:32 hydromorphone [HYDROMORPHONE] Allergy Mild ITCHING Verified 07/23/21 18:32 hydroxyzine [HYDROXYZINE] Allergy Mild FEVER, Verified 07/23/21 18:32 SWEATS ibuprofen [IBUPROFEN] Allergy Unknown Verified 07/23/21 18:32 aspirin [ASPIRIN] AdvReac Severe STOMACH Verified 07/23/21 18:32 PAIN & HIVE W/325MG, CAN TAKE 81 MG solifenacin [From [facility]] AdvReac Unknown INCREASE Verified 07/23/21 18:32 PVR AND URINARY SX RACHEL AdvReac Unknown DOES NOT Uncoded 11/25/17 12:09 WORK Review of Systems Review of Systems Narrative: All 12 point systems reviewed with the patient and are negative except otherwise documented. Exam Vital Signs (past 8 hours): - 07/23/21 15:41 07/23/21 16:02 07/23/21 16:15 Temperature 96.9 F L Pulse Rate 83 67 67 Respiratory Rate 22 22 16 Blood Pressure 130/58 L 108/58 L Pulse Oximetry 97 96 95 07/23/21 16:30 07/23/21 16:45 07/23/21 17:00 Temperature Pulse Rate 65 88 64 Respiratory Rate 19 28 H 22 Blood Pressure 106/58 L 112/59 L 112/68 Pulse Oximetry 94 96 95 07/23/21 17:15 07/23/21 17:30 07/23/21 17:45 Temperature Pulse Rate 66 66 64 Respiratory Rate 17 36 H 20 Blood Pressure 121/66 127/64 125/60 Pulse Oximetry 96 95 95 07/23/21 18:00 07/23/21 18:01 07/23/21 18:15 Temperature Pulse Rate 89 92 H 64 Respiratory Rate 27 H 28 H 19 Blood Pressure 114/55 L 122/60 Pulse Oximetry 95 96 97 07/23/21 18:30 07/23/21 18:31 07/23/21 18:46 Temperature Pulse Rate 80 76 65 Respiratory Rate 25 H 25 H 16 Blood Pressure 133/60 108/56 L Pulse Oximetry 96 95 97 07/23/21 19:00 07/23/21 19:01 07/23/21 19:15 Temperature Pulse Rate 65 63 72 Respiratory Rate 12 16 20 Blood Pressure 127/68 152/82 H Pulse Oximetry 96 97 95 Oxygen Delivery Method Room Air Narrative Exam Narrative: General: Patient is a well-developed, well-nourished obese male, calm, in no distress at this time. HEENT: Normocephalic, atraumatic, extraocular muscles intact, oral pharynx is clear and mucous membranes are moist. Neck is supple and symmetric, trachea is midline, no adenopathy, no thyroid enlargement, nontender, no masses palpated. Negative for JVD Chest: Normal AP diameter and contour without kyphoscoliosis, no nasal flaring, retractions, or tachypneic labored breathing. Lungs: Auscultation of all lung mclaughlin are clear without adventitious sounds, wheezes, rhonchi, or rales. Cardio: Luis irregular rate and rhythm without murmur, rubs, or gallops, no carotid bruit, no cardiac pulsations present. Abdomen: Soft nontender, obese, negative for organomegaly, or masses. Bowel sounds are present in all 4 quadrants without guarding or rebound, no CVA tenderness. Musculoskeletal: Muscle strength and tone are equal within normal limits, no deformity, crepitus, effusions, cyanosis, or clubbing present. Full range of motion intact radial and pedal pulses are normal. Bilateral +3 mildly erythemic edema. Skin: Warm dry and intact without rashes, ulcerations or petechiae. Neuro: Alert and orientated x3, strength is +5/5 in all extremities, sensation to touch intact, no gross deficits noted of cranial nerves. Psych: Patient has a well-kept appearance, appropriate affect, mental status attitude thought context and judgment are appropriate for age. Objective Labs Result Diagrams: 07/23/21 16:10 07/23/21 16:10 Labs: Laboratory Results - last 24 hr 07/23/21 07/23/21 07/23/21 16:00 16:10 16:10 WBC 6.3 RBC 3.13 L Hgb 9.9 L Hct 29.1 L MCV 92.8 MCH 31.5 MCHC 33.9 RDW 15.8 H Plt Count 177 Neut % (Auto) 64.0 Lymph % (Auto) 24.0 L Braxton % (Auto) 8.8 Eos % (Auto) 2.2 Baso % (Auto) 1.0 Neut # (Auto) 4000 Lymph # (Auto) 1500 Braxton # (Auto) 600 Eos # (Auto) 100 Baso # (Auto) 100 APTT Sodium 137 Potassium 4.3 Chloride 99 Carbon Dioxide 29 BUN 30 H Creatinine 1.36 H Estimated GFR 50.9 L BUN/Creatinine Ratio 22.1 H Glucose 243 H Hemoglobin A1c 8.5 H Lactate Calcium 9.6 Magnesium Total Bilirubin 0.5 AST 18 ALT 15 Alkaline Phosphatase 37 L Total Creatine Kinase 58 CK-MB (CK-2) TNP CK-MB (CK-2) Rel Index TNP Troponin I < 0.012 NT-Pro-B Natriuret Pep Total Protein 7.2 Albumin 4.3 Globulin 2.9 Albumin/Globulin Ratio 1.5 Lipase 12 L Procalcitonin TSH Chlamy pneumoniae PCR Adenovirus (PCR) B. pertussis DNA (PCR) B.parapertussis DNA PCR Coronavirus OC43 (PCR) Coronavirus HKU1 (PCR) Coronavirus 229E (PCR) SARS-CoV-2 (PCR) Coronavirus NL63 (PCR) Human Metapneumovir PCR Influenza Type A (PCR) Influenza Type B (PCR) M. pneumoniae (PCR) Parainfluenza 1 (PCR) Parainfluenza 2 (PCR) Parainfluenza 3 (PCR) Parainfluenza 4 (PCR) RSV (PCR) Entero/Rhino (PCR) 07/23/21 07/23/21 07/23/21 16:10 16:10 16:10 WBC RBC Hgb Hct MCV MCH MCHC RDW Plt Count Neut % (Auto) Lymph % (Auto) Braxton % (Auto) Eos % (Auto) Baso % (Auto) Neut # (Auto) Lymph # (Auto) Braxton # (Auto) Eos # (Auto) Baso # (Auto) APTT Sodium Potassium Chloride Carbon Dioxide BUN Creatinine Estimated GFR BUN/Creatinine Ratio Glucose Hemoglobin A1c Lactate 2.0 Calcium Magnesium Total Bilirubin AST ALT Alkaline Phosphatase Total Creatine Kinase CK-MB (CK-2) CK-MB (CK-2) Rel Index Troponin I NT-Pro-B Natriuret Pep 225 Total Protein Albumin Globulin Albumin/Globulin Ratio Lipase Procalcitonin TSH Chlamy pneumoniae PCR Not detected Adenovirus (PCR) Not detected B. pertussis DNA (PCR) Not detected B.parapertussis DNA PCR Not detected Coronavirus OC43 (PCR) Not detected Coronavirus HKU1 (PCR) Not detected Coronavirus 229E (PCR) Not detected SARS-CoV-2 (PCR) Not detected Coronavirus NL63 (PCR) Not detected Human Metapneumovir PCR Not detected Influenza Type A (PCR) Not detected Influenza Type B (PCR) Not detected M. pneumoniae (PCR) Not detected Parainfluenza 1 (PCR) Not detected Parainfluenza 2 (PCR) Not detected Parainfluenza 3 (PCR) Not detected Parainfluenza 4 (PCR) Not detected RSV (PCR) Not detected Entero/Rhino (PCR) Not detected 07/23/21 07/23/21 07/23/21 16:10 16:10 16:10 WBC RBC Hgb Hct MCV MCH MCHC RDW Plt Count Neut % (Auto) Lymph % (Auto) Braxton % (Auto) Eos % (Auto) Baso % (Auto) Neut # (Auto) Lymph # (Auto) Braxton # (Auto) Eos # (Auto) Baso # (Auto) APTT Sodium Potassium Chloride Carbon Dioxide BUN Creatinine Estimated GFR BUN/Creatinine Ratio Glucose Hemoglobin A1c Lactate Calcium Magnesium 1.1 L Total Bilirubin AST ALT Alkaline Phosphatase Total Creatine Kinase CK-MB (CK-2) CK-MB (CK-2) Rel Index Troponin I NT-Pro-B Natriuret Pep Total Protein Albumin Globulin Albumin/Globulin Ratio Lipase Procalcitonin 0.07 TSH 2.58 Chlamy pneumoniae PCR Adenovirus (PCR) B. pertussis DNA (PCR) B.parapertussis DNA PCR Coronavirus OC43 (PCR) Coronavirus HKU1 (PCR) Coronavirus 229E (PCR) SARS-CoV-2 (PCR) Coronavirus NL63 (PCR) Human Metapneumovir PCR Influenza Type A (PCR) Influenza Type B (PCR) M. pneumoniae (PCR) Parainfluenza 1 (PCR) Parainfluenza 2 (PCR) Parainfluenza 3 (PCR) Parainfluenza 4 (PCR) RSV (PCR) Entero/Rhino (PCR) 07/23/21 07/23/21 07/23/21 16:10 16:17 19:16 WBC RBC Hgb Hct MCV MCH MCHC RDW Plt Count Neut % (Auto) Lymph % (Auto) Braxton % (Auto) Eos % (Auto) Baso % (Auto) Neut # (Auto) Lymph # (Auto) Braxton # (Auto) Eos # (Auto) Baso # (Auto) APTT 33 Sodium Potassium Chloride Carbon Dioxide BUN Creatinine Estimated GFR BUN/Creatinine Ratio Glucose Hemoglobin A1c Lactate Calcium Magnesium Total Bilirubin AST ALT Alkaline Phosphatase Total Creatine Kinase CK-MB (CK-2) CK-MB (CK-2) Rel Index Troponin I < 0.012 NT-Pro-B Natriuret Pep Total Protein Albumin Globulin Albumin/Globulin Ratio Lipase Procalcitonin TSH Chlamy pneumoniae PCR Adenovirus (PCR) B. pertussis DNA (PCR) B.parapertussis DNA PCR Coronavirus OC43 (PCR) Coronavirus HKU1 (PCR) Coronavirus 229E (PCR) SARS-CoV-2 (PCR) Negative Coronavirus NL63 (PCR) Human Metapneumovir PCR Influenza Type A (PCR) Influenza Type B (PCR) M. pneumoniae (PCR) Parainfluenza 1 (PCR) Parainfluenza 2 (PCR) Parainfluenza 3 (PCR) Parainfluenza 4 (PCR) RSV (PCR) Entero/Rhino (PCR) Assessment & Plan Assessment & Plan narrative: Bossman Denton is a 76-year-old male with a a history of PR with a stent placed, DCHF EF 60-65%, gout, hypertension, CAD, GERD, COPD, chronic anemia, hypothyroidism, type 2 diabetes gas-arsbhyb-rnkyrtnuc, obesity. Who presented to the ED with increasing swelling bilateral lower extremities with nightly occurrences of irregular heart rate, and SOB x2 weeks- demonstrating atrial flutter on EKG. Patient admitted for atrial flutter, COREY, hypomagnesia, acute on chronic diastolic heart failure exacerbation. 1. Atrial flutter/atrial fibrillation, acute, in the setting of history of PR, coronary artery disease-post stent, hypertension, acute on chronic, present on admission -EKG demonstrated atrial flutter 4-1, a rate of [address] wave changes. Patient is stable asymptomatic Heart Score:6 -ED Consult: Dr. Sanchez air export coordinator was consulted recommended patient be put on a heparin drip, trend troponins, complete echo tomorrow. Patient to be transferred to a facility with cardiac, if troponins become positive or patient becomes unstable. -This is likely the further ends of the patient's worsening acute on chronic diastolic heart failure possible development of pulmonary hypertension and COPD. -patient requires admission for adequate diuresis, also monitor for urinary retention, and stabilize atrial flutter/fibrillation patient will likely require outpatient cardiology follow-up, echo tomorrow. -patient placed on heparin drip, tele -med, monitoring for bleeding risks. -troponin x2 negative -conitnue patient's propanolol, doxazosin, and lisinopril, consider holding for sustained hypotension & bradycardia, continue to monitor V/S. -Continue atrovastatin, hold asa 2. COREY, acute , likely prerenal, present on admission -Previous 11/28/2020 labs BUN 19 creatinine 1.02, GFR >60. Today's BUN 30, creatinine 1.36, glucose 243, GFR 50.9. -will give 1 liter/42cc hr LR x1 to offset COREY from aggressive dieresis. 3. Hypomagnesia, acute, present on admission, likely secondary to COREY and CHF exacerbation -magnesium of 1.1 was given 2 g in ED -monitor electrolytes 4.?Diastolic heart failure, acute on chronic, exacerbation, present on admission -last known echo 2018 an EF of 60-65% diastolic heart failure -chest x-ray demonstrated low lung volumes with atelectasis vs. mild infiltrates at the left lung base. -BNP normal at 225, lipase 12, procalcitonin WNL, viral panel negative, 40 mg of Lasix in ED -will start diuresis with Lasix 40 IV b.i.d. -monitor I/O, daily weights, fluid restriction to 2000 cc per day, low sodium diet -echo ordered -Resp consult -Continue trilogy, QVAR, albuterol, prednisone 40 mg q.day x5 days 5. Non insulin-dependent type 2 diabetes, hyperglycemia, acute on chronic, present on admission-uncontrolled -patient's initial blood sugar 243 on admit, A1c ordered 8.5% -patient placed on low carb diet, blood sugar checks a.c. HS, low-dose sliding scale, initiated Lantus 10 units q.h.s. during acute illness 6.? Hypothyroidism, acquired, chronic, present on admission -TSH WNL -continue levothyroxine 8.? GERD, chronic, present on admission -continue pantoprazole 40 mg daily 9.? COPD, chronic, present on admission -continue duo nebs q.6 hours as needed -continue albuterol HFA inhaler, QVAR 10. Anemia, acute on chronic, present on admission -HGB 9.9 and HCT 29.1 -slightly lower than baseline. -monitor for bleeding, hemooccult as needed 11. Gout, chronic, present on admission -continue patient's allopurinol 12. Obesity as evidence by BMI of 39.9, acute on chronic, present on admission -consideration will be given for dietary consultation Code status:Full Surrogate decision maker: Kathy Denton COVID PCR:Negative COVID vaccination: SuppreMol x3 2020 DVT/VTE prophylaxis: Heparin drip, SCDs Disposition: Patient admitted to acute care expected length of stay greater than 2 midnights. I have utilized all available immediate resources to obtain, update, or review the patient's current medications. I confirmed that the patient's advanced care plan is present, Code status is documented and/or surrogate decision maker is listed in the patient's medical record. Time Spent With Patient Critical Care time: I spent a total of [] minutes of critical care time on this patient's care today; this time is exclusive of procedural time. Scores GCS Lucho coma scale eye opening: Spontaneous Lucho coma scale verbal response: Orientated Lucho coma scale motor response: Obey commands Lucho coma scale total score: 15
[2021-07-23] MEDS: DOCUSATE 100 MG CAPSULE PO (22:34)
[2021-07-23] MEDS: ATORVASTATIN 20 MG TABLET 40 MG PO (22:34)
[2021-07-23] MEDS: polyethylene glycoL 3350 17 GM POWD.PACK PO (22:34)
[2021-07-23] MEDS: DULOXETINE 30 MG CAPSULE 60 MG PO (22:35)
[2021-07-23] MEDS: allopurinoL 100 MG TABLET PO (22:35)
[2021-07-23] MEDS: lisinopriL 5 MG TABLET PO (22:35)
[2021-07-23] MEDS: PANTOPRAZOLE DR 20 MG TABLET PO (22:35)
[2021-07-23] MEDS: INSULIN GLARGINE 100 UNIT/ML 3ML PEN 10 UNIT SUBCUT (22:36)
[2021-07-24] VITALS (26 sets, daily range): BP systolic 105–164; BP diastolic 60–76; PULSE 62–104; RESP 10–24; TEMP 36.2–36.5; O2SAT 94–100; BMI 35.9
[2021-07-24] MEDS: OXYCODONE IR 5 MG TABLET PO ×5 (00:01→23:48)
[2021-07-24] MEDS: ACETAMINOPHEN 325 MG TABLET 650 MG PO ×4 (00:05→23:56)
[2021-07-24 01:48] LABS: PTT Partial Thromboplastin Tim 60 SECONDS (26.4-36.2)
[2021-07-24] MEDS: LACTATED RINGERS 1,000 ML 42 ML IV (02:00)
--- NOTE | 2021-07-24 02:18 | PC.NURSE ---
PTT 60. No change in Heparin gtt per [facility] protocol. Next PTT due 0500 07/25/21 per protocol.
[2021-07-24 05:09] LABS: Add Manual Diff / Slide Review NO; Basophils Absolute Auto 100 /uL (0-100); Basophils Percent Auto 0.7 % (0-2); Eosinophils Absolute Auto 200 /uL (0-450); Hematocrit 31.2 % (41-53); Hemoglobin 10.6 g/dL (13.5-17.5); Lymphocytes Absolute Auto 2100 /uL (1100-4500); Lymphocytes Percent Auto 28.4 % (25-40); Mean Corpuscular Hemoglobin 31.2 PG (26-34); Mean Corpuscular Volume 91.9 fL (80-100); Monocytes Absolute Auto 700 /uL (0-900); Neutrophils Absolute Auto 4300 /uL (1500-7000); Neutrophils Percent Auto 58.9 % (50-75); Platelet Count 172 X10^3/uL (150-400); Red Blood Cell Count 3.39 X10^6/uL (4.5-5.9); Red Cell Distribution Width 15.8 % (11.6-14.8); White Blood Cell Count 7.3 X10^3/uL (4.5-11.0)
[2021-07-24 05:42] LABS: Alanine Aminotransferase 15 IU/L (<50); Albumin 4.1 g/dL (3.5-5.0); Albumin Globulin Ratio 1.3 (1.0-2.8); Alkaline Phosphatase 37 U/L (38-126); Aspartate Aminotransferase 18 IU/L (17-59); BUN Creatinine Ratio 21.8 (6-22); Bilirubin Total 0.6 mg/dL (0.2-1.3); Blood Urea Nitrogen 26 mg/dL (9-20); Calcium 9.8 mg/dL (8.4-10.2); Carbon Dioxide 32 mmol/L (22-32); Chloride 99 mmol/L (98-107); Estimated Glomerular Filt Rate 59.4 mL/min (>60); Globulin 3.1 g/dL (1.7-4.1); Glucose 164 mg/dL (80-110); HEMOLYSIS < 15 (0-50); Magnesium 1.4 mg/dL (1.6-2.3); Potassium 3.7 mmol/L (3.4-5.1); Sodium 140 mmol/L (137-145); Total Protein 7.2 g/dL (6.3-8.2)
[2021-07-24 05:51] LABS: Troponin I < 0.012 ng/mL (0.01-0.034)
--- NOTE | 2021-07-24 05:51 | PC.NURSE ---
No significant changes with pt throughout the night. Rested well on home trilogy machine. incontinence care provided as needed. remains in AFlutter 63-70. BP 119/62. Report given to ROSHNI Kirkland
[2021-07-24] MEDS: FUROSEMIDE 40 MG/4 ML VIAL IV ×3 (06:08→12:27)
[2021-07-24] MEDS: DOXAZOSIN 4 MG TABLET 8 MG PO (06:09)
[2021-07-24] MEDS: LEVOTHYROXINE 100 MCG TABLET 300 MCG PO (06:09)
[2021-07-24 08:39] LABS: PTT Partial Thromboplastin Tim 49 SECONDS (26.4-36.2)
[2021-07-24] MEDS: INSULIN LISPRO 100 UNIT/ML 3ML VIAL SUBCUT ×3 (12:28→21:28)
[2021-07-24] MEDS: predniSONE 20 MG TABLET 40 MG PO (12:40)
--- NOTE | 2021-07-24 13:09 | PM.PN.1 ---
Subjective Subjective Date Patient Seen: 07/24/21 Time Patient Seen: 12:00 Interval history: This morning he notes he has back pain. Otherwise, no shortness of breath, chest pain, palpitations. Exam Vital Signs (past 8 hours): - 07/24/21 05:30 07/24/21 06:00 07/24/21 06:30 Temperature Pulse Rate 66 71 63 Respiratory Rate 13 13 12 Blood Pressure Pulse Oximetry 94 94 97 07/24/21 07:00 07/24/21 07:33 07/24/21 11:00 Temperature 97.5 F L Pulse Rate 63 76 Respiratory Rate 15 18 18 Blood Pressure 122/76 139/63 Pulse Oximetry 98 97 07/24/21 11:25 Temperature 97.4 F L Pulse Rate 81 Respiratory Rate 21 Blood Pressure 105/76 Pulse Oximetry 97 Oxygen Delivery Method Room Air Oxygen Flow Rate 0 Narrative Exam Narrative: General:?no acute distress Lungs:? clear bilaterally Cardio:? irregular Abdomen:? Soft nontender, obese Musculoskeletal:?1+ bilateral pitting edema Objective Labs Result Diagrams: 07/24/21 04:30 07/24/21 04:30 Labs: Laboratory Results - last 24 hr 07/23/21 07/23/21 07/23/21 16:00 16:10 16:10 WBC 6.3 RBC 3.13 L Hgb 9.9 L Hct 29.1 L MCV 92.8 MCH 31.5 MCHC 33.9 RDW 15.8 H Plt Count 177 Neut % (Auto) 64.0 Lymph % (Auto) 24.0 L [place] % (Auto) 8.8 Eos % (Auto) 2.2 Baso % (Auto) 1.0 Neut # (Auto) 4000 Lymph # (Auto) 1500 [place] # (Auto) 600 Eos # (Auto) 100 Baso # (Auto) 100 APTT Sodium 137 Potassium 4.3 Chloride 99 Carbon Dioxide 29 BUN 30 H Creatinine 1.36 H Estimated GFR 50.9 L BUN/Creatinine Ratio 22.1 H Glucose 243 H Hemoglobin A1c 8.5 H Lactate Calcium 9.6 Magnesium Total Bilirubin 0.5 AST 18 ALT 15 Alkaline Phosphatase 37 L Total Creatine Kinase 58 CK-MB (CK-2) TNP CK-MB (CK-2) Rel Index TNP Troponin I < 0.012 NT-Pro-B Natriuret Pep Total Protein 7.2 Albumin 4.3 Globulin 2.9 Albumin/Globulin Ratio 1.5 Lipase 12 L Procalcitonin TSH Chlamy pneumoniae PCR Adenovirus (PCR) B. pertussis DNA (PCR) B.parapertussis DNA PCR Coronavirus OC43 (PCR) Coronavirus HKU1 (PCR) Coronavirus 229E (PCR) SARS-CoV-2 (PCR) Coronavirus NL63 (PCR) Human Metapneumovir PCR Influenza Type A (PCR) Influenza Type B (PCR) M. pneumoniae (PCR) Parainfluenza 1 (PCR) Parainfluenza 2 (PCR) Parainfluenza 3 (PCR) Parainfluenza 4 (PCR) RSV (PCR) Entero/Rhino (PCR) 07/23/21 07/23/21 07/23/21 16:10 16:10 16:10 WBC RBC Hgb Hct MCV MCH MCHC RDW Plt Count Neut % (Auto) Lymph % (Auto) [place] % (Auto) Eos % (Auto) Baso % (Auto) Neut # (Auto) Lymph # (Auto) [place] # (Auto) Eos # (Auto) Baso # (Auto) APTT Sodium Potassium Chloride Carbon Dioxide BUN Creatinine Estimated GFR BUN/Creatinine Ratio Glucose Hemoglobin A1c Lactate 2.0 Calcium Magnesium Total Bilirubin AST ALT Alkaline Phosphatase Total Creatine Kinase CK-MB (CK-2) CK-MB (CK-2) Rel Index Troponin I NT-Pro-B Natriuret Pep 225 Total Protein Albumin Globulin Albumin/Globulin Ratio Lipase Procalcitonin TSH Chlamy pneumoniae PCR Not detected Adenovirus (PCR) Not detected B. pertussis DNA (PCR) Not detected B.parapertussis DNA PCR Not detected Coronavirus OC43 (PCR) Not detected Coronavirus HKU1 (PCR) Not detected Coronavirus 229E (PCR) Not detected SARS-CoV-2 (PCR) Not detected Coronavirus NL63 (PCR) Not detected Human Metapneumovir PCR Not detected Influenza Type A (PCR) Not detected Influenza Type B (PCR) Not detected M. pneumoniae (PCR) Not detected Parainfluenza 1 (PCR) Not detected Parainfluenza 2 (PCR) Not detected Parainfluenza 3 (PCR) Not detected Parainfluenza 4 (PCR) Not detected RSV (PCR) Not detected Entero/Rhino (PCR) Not detected 07/23/21 07/23/21 07/23/21 16:10 16:10 16:10 WBC RBC Hgb Hct MCV MCH MCHC RDW Plt Count Neut % (Auto) Lymph % (Auto) [place] % (Auto) Eos % (Auto) Baso % (Auto) Neut # (Auto) Lymph # (Auto) [place] # (Auto) Eos # (Auto) Baso # (Auto) APTT Sodium Potassium Chloride Carbon Dioxide BUN Creatinine Estimated GFR BUN/Creatinine Ratio Glucose Hemoglobin A1c Lactate Calcium Magnesium 1.1 L Total Bilirubin AST ALT Alkaline Phosphatase Total Creatine Kinase CK-MB (CK-2) CK-MB (CK-2) Rel Index Troponin I NT-Pro-B Natriuret Pep Total Protein Albumin Globulin Albumin/Globulin Ratio Lipase Procalcitonin 0.07 TSH 2.58 Chlamy pneumoniae PCR Adenovirus (PCR) B. pertussis DNA (PCR) B.parapertussis DNA PCR Coronavirus OC43 (PCR) Coronavirus HKU1 (PCR) Coronavirus 229E (PCR) SARS-CoV-2 (PCR) Coronavirus NL63 (PCR) Human Metapneumovir PCR Influenza Type A (PCR) Influenza Type B (PCR) M. pneumoniae (PCR) Parainfluenza 1 (PCR) Parainfluenza 2 (PCR) Parainfluenza 3 (PCR) Parainfluenza 4 (PCR) RSV (PCR) Entero/Rhino (PCR) 07/23/21 07/23/21 07/23/21 16:10 16:17 19:16 WBC RBC Hgb Hct MCV MCH MCHC RDW Plt Count Neut % (Auto) Lymph % (Auto) [place] % (Auto) Eos % (Auto) Baso % (Auto) Neut # (Auto) Lymph # (Auto) [place] # (Auto) Eos # (Auto) Baso # (Auto) APTT 33 Sodium Potassium Chloride Carbon Dioxide BUN Creatinine Estimated GFR BUN/Creatinine Ratio Glucose Hemoglobin A1c Lactate Calcium Magnesium Total Bilirubin AST ALT Alkaline Phosphatase Total Creatine Kinase CK-MB (CK-2) CK-MB (CK-2) Rel Index Troponin I < 0.012 NT-Pro-B Natriuret Pep Total Protein Albumin Globulin Albumin/Globulin Ratio Lipase Procalcitonin TSH Chlamy pneumoniae PCR Adenovirus (PCR) B. pertussis DNA (PCR) B.parapertussis DNA PCR Coronavirus OC43 (PCR) Coronavirus HKU1 (PCR) Coronavirus 229E (PCR) SARS-CoV-2 (PCR) Negative Coronavirus NL63 (PCR) Human Metapneumovir PCR Influenza Type A (PCR) Influenza Type B (PCR) M. pneumoniae (PCR) Parainfluenza 1 (PCR) Parainfluenza 2 (PCR) Parainfluenza 3 (PCR) Parainfluenza 4 (PCR) RSV (PCR) Entero/Rhino (PCR) 07/24/21 07/24/21 07/24/21 01:30 04:30 04:30 WBC 7.3 RBC 3.39 L Hgb 10.6 L Hct 31.2 L MCV 91.9 MCH 31.2 MCHC 34.0 RDW 15.8 H Plt Count 172 Neut % (Auto) 58.9 Lymph % (Auto) 28.4 [place] % (Auto) 9.0 Eos % (Auto) 3.0 Baso % (Auto) 0.7 Neut # (Auto) 4300 Lymph # (Auto) 2100 [place] # (Auto) 700 Eos # (Auto) 200 Baso # (Auto) 100 APTT 60 H D 49 H D Sodium Potassium Chloride Carbon Dioxide BUN Creatinine Estimated GFR BUN/Creatinine Ratio Glucose Hemoglobin A1c Lactate Calcium Magnesium Total Bilirubin AST ALT Alkaline Phosphatase Total Creatine Kinase CK-MB (CK-2) CK-MB (CK-2) Rel Index Troponin I NT-Pro-B Natriuret Pep Total Protein Albumin Globulin Albumin/Globulin Ratio Lipase Procalcitonin TSH Chlamy pneumoniae PCR Adenovirus (PCR) B. pertussis DNA (PCR) B.parapertussis DNA PCR Coronavirus OC43 (PCR) Coronavirus HKU1 (PCR) Coronavirus 229E (PCR) SARS-CoV-2 (PCR) Coronavirus NL63 (PCR) Human Metapneumovir PCR Influenza Type A (PCR) Influenza Type B (PCR) M. pneumoniae (PCR) Parainfluenza 1 (PCR) Parainfluenza 2 (PCR) Parainfluenza 3 (PCR) Parainfluenza 4 (PCR) RSV (PCR) Entero/Rhino (PCR) 07/24/21 04:30 WBC RBC Hgb Hct MCV MCH MCHC RDW Plt Count Neut % (Auto) Lymph % (Auto) [place] % (Auto) Eos % (Auto) Baso % (Auto) Neut # (Auto) Lymph # (Auto) [place] # (Auto) Eos # (Auto) Baso # (Auto) APTT Sodium 140 Potassium 3.7 Chloride 99 Carbon Dioxide 32 BUN 26 H Creatinine 1.19 Estimated GFR 59.4 L BUN/Creatinine Ratio 21.8 Glucose 164 H Hemoglobin A1c Lactate Calcium 9.8 Magnesium 1.4 L Total Bilirubin 0.6 AST 18 ALT 15 Alkaline Phosphatase 37 L Total Creatine Kinase CK-MB (CK-2) CK-MB (CK-2) Rel Index Troponin I < 0.012 NT-Pro-B Natriuret Pep Total Protein 7.2 Albumin 4.1 Globulin 3.1 Albumin/Globulin Ratio 1.3 Lipase Procalcitonin TSH Chlamy pneumoniae PCR Adenovirus (PCR) B. pertussis DNA (PCR) B.parapertussis DNA PCR Coronavirus OC43 (PCR) Coronavirus HKU1 (PCR) Coronavirus 229E (PCR) SARS-CoV-2 (PCR) Coronavirus NL63 (PCR) Human Metapneumovir PCR Influenza Type A (PCR) Influenza Type B (PCR) M. pneumoniae (PCR) Parainfluenza 1 (PCR) Parainfluenza 2 (PCR) Parainfluenza 3 (PCR) Parainfluenza 4 (PCR) RSV (PCR) Entero/Rhino (PCR) [facility] Medical History Anemia Atrial fibrillation CAD (coronary artery disease), [place] coronary artery Cognitive impairment, mild, so stated Constipation COPD (chronic obstructive pulmonary disease) Diabetes mellitus Diastolic CHF Essential tremor GERD (gastroesophageal reflux disease) Gout HLD (hyperlipidemia) HTN (hypertension) Low back pain Surgical History H/O abdominal surgery H/O arthroscopic knee surgery H/O rotator cuff surgery History of back surgery Family History (Updated 07/23/21 @ 22:59 by HUMPHREY Lopez) Mother Diabetes mellitus Cancer Father Diabetes mellitus Cancer Social History household members: spouse Smoking Status: Former smoker alcohol intake: never Assessment & Plan Assessment & Plan narrative: 1. Atrial flutter/atrial fibrillation, acute, in the setting of history of [place], coronary artery disease-post stent, hypertension, acute on chronic, present on admission -EKG demonstrated atrial flutter 4-1, a rate of [address] wave changes.? Patient is stable asymptomatic -ED Consult: Dr. Sanchez deputy bailiff was consulted recommended patient be put on a heparin drip, trend troponins, complete echo tomorrow. -patient requires admission for adequate diuresis started on IV lasix BID -patient placed on heparin drip -troponin x3 negative -conitnue patient's propanolol, doxazosin, and lisinopril, consider holding for sustained hypotension & bradycardia, continue to monitor V/S. -Continue atrovastatin, aspirin 2. COREY, acute , likely prerenal, present on admission -Previous 11/2020 creatinine 1.02, on admission 1.36, labs BUN 19 creatinine 1.02, GFR >60.? Today's BUN 30, creatinine 1.36, glucose 243, GFR 50.9. -given IVF and improved to 1.19 3. Hypomagnesia, acute, present on admission, likely secondary to COREY and CHF exacerbation -magnesium of 1.1 was given 2 g in ED, repeat 1.4 was given 4gm mag 4.?Diastolic heart failure, acute on chronic, exacerbation, present on admission -last known echo 2018 an EF of 60-65% diastolic heart failure -chest x-ray demonstrated low lung volumes with atelectasis vs. mild infiltrates at the left lung base. -BNP normal at 225 -diuresis with Lasix 40 IV b.i.d. -monitor I/O, daily weights, fluid restriction to 2000 cc per day, low sodium diet -echo ordered -Resp consult -Continue trilogy, QVAR, albuterol 5. Non insulin-dependent type 2 diabetes, hyperglycemia, acute on chronic, present on admission-uncontrolled -patient's initial blood sugar 243 on admit, A1c ordered 8.5% -patient placed on low carb diet, blood sugar checks a.c. HS, low-dose sliding scale, initiated Lantus 10 units q.h.s. during acute illness ? 6.? Hypothyroidism, acquired, chronic, present on admission -TSH WNL -continue levothyroxine 8.? GERD, chronic, present on admission -continue pantoprazole 40 mg daily 9.? COPD, chronic, present on admission -continue duo nebs q.6 hours as needed -continue albuterol HFA inhaler, QVAR -continue prednisone 10. Anemia, acute on chronic, present on admission -HGB 9.9 and HCT 29.1 -slightly lower than baseline. -monitor for bleeding, hemooccult as needed 11. Gout, chronic, present on admission -continue patient's allopurinol 12. Obesity as evidence by BMI of 39.9, acute on chronic, present on admission -consideration will be given for dietary consultation Time Spent With Patient Critical Care time: I spent a total of [] minutes of critical care time on this patient's care today; this time is exclusive of procedural time. Quality VTE Deep Vein Thrombosis/Pulmonary Embolism Present on Admission: No
[2021-07-24] MEDS: GABAPENTIN 100 MG CAPSULE PO ×2 (15:01→21:07)
[2021-07-24 16:02] LABS: PTT Partial Thromboplastin Tim 47 SECONDS (26.4-36.2)
--- NOTE | 2021-07-24 17:54 | PC.NURSE ---
Pt alert/oriented. States he has chronic back & leg discomfort. IVF infusing via pumps as per orders. Heparin infusing into the RFA PTT @ 1545 47, heparin increased by 50u Next PTT @ 2145. Lower legs w/edema, pulses ++ Med w/oxycodone routinely. Call light w/in reach, bed alarm on for pt safety.... Continue w/plan of care.
[2021-07-24] MEDS: ATORVASTATIN 20 MG TABLET 40 MG PO (21:07)
[2021-07-24] MEDS: DULOXETINE 30 MG CAPSULE 60 MG PO (21:07)
[2021-07-24] MEDS: lisinopriL 5 MG TABLET PO (21:10)
[2021-07-24] MEDS: INSULIN GLARGINE 100 UNIT/ML 3ML PEN 10 UNIT SUBCUT (21:27)
[2021-07-25] VITALS (7 sets, daily range): BP systolic 105–140; BP diastolic 45–73; PULSE 63–115; RESP 14–17; TEMP 35.8–36.6; O2SAT 96–98
[2021-07-25] MEDS: FUROSEMIDE 40 MG/4 ML VIAL IV (00:05)
[2021-07-25] MEDS: SODIUM CHLORIDE 0.9% FLUSH 10 ML IV ×4 (04:40→21:42)
[2021-07-25] MEDS: ACETAMINOPHEN 325 MG TABLET 650 MG PO ×4 (06:35→23:54)
[2021-07-25] MEDS: DOXAZOSIN 4 MG TABLET 8 MG PO (06:36)
[2021-07-25] MEDS: OXYCODONE IR 5 MG TABLET PO ×4 (06:40→23:54)
[2021-07-25] MEDS: LEVOTHYROXINE 100 MCG TABLET 300 MCG PO (06:58)
[2021-07-25 07:41] LABS: Hematocrit 32.8 % (41-53); Hemoglobin 11.1 g/dL (13.5-17.5); Mean Corpuscular HGB Conc 33.8 % (30-36); Mean Corpuscular Hemoglobin 31.2 PG (26-34); Mean Corpuscular Volume 92.5 fL (80-100); Platelet Count 194 X10^3/uL (150-400); Red Blood Cell Count 3.54 X10^6/uL (4.5-5.9); Red Cell Distribution Width 15.7 % (11.6-14.8); White Blood Cell Count 10.3 X10^3/uL (4.5-11.0)
[2021-07-25 07:42] LABS: PTT Partial Thromboplastin Tim 30 SECONDS (26.4-36.2)
[2021-07-25 07:44] LABS: BUN Creatinine Ratio 24.8 (6-22); Blood Urea Nitrogen 26 mg/dL (9-20); Calcium 9.7 mg/dL (8.4-10.2); Carbon Dioxide 34 mmol/L (22-32); Chloride 97 mmol/L (98-107); Estimated Glomerular Filt Rate > 60.0 mL/min (>60); Glucose 212 mg/dL (80-110); HEMOLYSIS < 15 (0-50); Magnesium 1.8 mg/dL (1.6-2.3); Potassium 4.3 mmol/L (3.4-5.1); Sodium 139 mmol/L (137-145)
[2021-07-25] MEDS: INSULIN LISPRO 100 UNIT/ML 3ML VIAL SUBCUT ×4 (08:26→21:32)
[2021-07-25] MEDS: allopurinoL 100 MG TABLET PO (08:35)
[2021-07-25] MEDS: PANTOPRAZOLE DR 20 MG TABLET PO (08:36)
[2021-07-25] MEDS: GABAPENTIN 100 MG CAPSULE PO ×3 (08:36→21:36)
[2021-07-25] MEDS: ASPIRIN EC 81 MG TABLET PO (08:36)
--- NOTE | 2021-07-25 10:46 | PC.NURSE ---
Addendum entered by Ekaterina Hirsch R.N. 07/25/21 17:52: Pt transfered from bed to chair, (3 steps) HR increased to 199, pt asymptomatic Tele showing A-flutter/ BBB Pt sat in chair good portion of day w/o incidence. Began Metropolol & Elequis today CBG' AC 200 (2u); 362 (5u) & 264 (3u) per S/S Bilateral lower legs appear improved from previous. Call light w/in reach, bed alarm on for pt safety. Continue w/plan of care. Original Note: Pt awake, pleasant. Denies any discomfort at this time. HL x 2; LAC & RAC intact/patent. Call light w,in reach, bed alarm on for pt safety.
--- NOTE | 2021-07-25 11:40 | PT.IIE ---
Current Diagnoses Unspecified atrial fibrillation (07/23/21) Medical History (Last Reviewed 07/23/21 @ 22:58 by HUMPHREY Lopez) Anemia Atrial fibrillation CAD (coronary artery disease), [place] coronary artery Cognitive impairment, mild, so stated Constipation COPD (chronic obstructive pulmonary disease) Diabetes mellitus Diastolic CHF Essential tremor GERD (gastroesophageal reflux disease) Gout HLD (hyperlipidemia) HTN (hypertension) Low back pain Physical Therapy Inpatient Evaluation/Re-Eval M1 PT/OT-IP Prior Functional Status Start: 07/25/21 13:16 Freq: NEEDED Status: Active Protocol: Document 07/25/21 11:40 AB (Rec: 07/25/21 13:31 AB [email or web address]) Medical Review Prior Functional Status Medical History Reviewed Yes Communication able to make needs known Mobility and Gait pt stated that he is modified independent with all mobilities and ambulation using SPC; uses his power w/c for outdoor mobility or the sotre's electric scooter when he goes shopping Social History Household Members spouse Living Arrangements Mobile home Number of Floors (Floors) One Floor Number of Stairs To Enter/Railing? 3 steps R rail to enter Home Environment High Toilet,Tub/Shower Doors Home Equipment Shower Seat with Backrest,Hand Held Shower,Grab Bars Near Toilet,Grab Bars In Shower Additional Social History Comment pt sleeps on his recliner M2 PT-IP Current Condition Start: 07/25/21 13:16 Freq: NEEDED Status: Active Protocol: Document 07/25/21 11:40 AB (Rec: 07/25/21 13:31 AB [email or web address]) Physical Therapy Current Condition Current Condition Evaluation Date 07/25/21 Treatment Diagnosis A-fib; difficulty in walking Onset Date 07/23/21 M3 PT-IP Subjective Start: 07/25/21 13:16 Freq: NEEDED Status: Active Protocol: Document 07/25/21 11:40 AB (Rec: 07/25/21 13:31 AB [email or web address]) Subjective Physical Therapy Visit Type Type Initial Evaluation Visit Start Time 11:40 Visit Stop Time 12:05 Total Visit Minutes 25 Number of CALENDERING MACHINE OPERATOR Visits 0 Physical Therapy Visit Comments Patient Comments agreeable to do PT Therapy Pain Assessment Pain When Pain Assessed At Rest Pain Present Pain Present Pain Reported Location Back Intensity 6 Scale Used Numeric (0 - 10) Description Chronic Pain Management Techniques Distraction,Modification of Treatment,Re-positioning M4 PT-IP Mobility and Gait Start: 07/25/21 13:16 Freq: NEEDED Status: Active Protocol: Document 07/25/21 11:40 AB (Rec: 07/25/21 13:31 AB [id number]) PT-Transfer Assessment Sit to and From Stand Sit to and from Stand Standby Assistance Equipment Transfer Assistive Device Gait Belt,Straight Cane Orthotic/Prosthetic Devices or Brace: No Comments Mobility Comments pt sitting on chair and agreed to do PT. nurse stated that pt is in A-fib but pt has d/c order and is not sure if pt will go home today or not. completed sit to stand SBA. unsteady with initial standing but able to manage with use of SPC for steadiness. pt ambulated in room using SPC SBA 25 ft. pt rested. agreed to do steps. ambulated out of the room using SPC SBA. completed up/down platform step using R rail + SPC SBA. nurse stated that pt's HR is up to 166. ambulated pt back to his room SBA. pt sat on chair. HR after 10 sec of sitting 80 per nurse. positioned pt on chair. call light and table placed within reach. pt without c/o dizziness during mobiltiy. informed nurse regarding pt's mobility and no furthe PT intervention indicated at this time. pt only needed SBA for safety and limiting factor is his current A-fib condition but mobility farrell, pt is able to manage safely. Gait Assessment Gait Gait Assistance Required: Standby Assistance Distance (Feet) 30 Able to Maintain Weight Bearing Status Yes During Gait Assistive Devices Assistive Device Gait Belt,Straight Cane Orthotic/Prosthetic Devices or Brace: No Gait Deviations General Gait Pattern Antalgic,Decreased Stride Length,Decreased Feet Clearance Factors Limiting Gait Function Factors Limiting Gait Function Decreased Activity Tolerance, Decreased Strength,Limited Range of Motion,Pain,Poor Balance,Poor Safety Awareness Stair Climbing Assessment Evaluation Level of Assist On Stairs Standby Assistance Devices Stair Climbing Assistive Devices Straight Cane,Right Railing Technique/Endurance Stair Climbing Direction Ascend and Descend Stair Climbing Technique Step to Step Number of Steps Climbed 1 Query Text: Stair Climbing Set # Repetitions (reps) 1 PT-Balance Assessment Sitting Balance and Reactions Static Sitting Balance Ability Good Dynamic Sitting Balance Ability Good Standing Balance and Reactions Static Standing Balance Ability Fair Dynamic Standing Balance Ability Fair Device Used SPC M5 PT-IP Objective Assessments Start: 07/25/21 13:16 Freq: NEEDED Status: Active Protocol: Document 07/25/21 11:40 AB (Rec: 07/25/21 13:31 AB [email or web address]) Orientation Orientation/Cognition Level of Alertness Alert Orientation Name,Place,Situation Safety Awareness Understands Safety Issues Memory Description No Deficits Noted Gross Range of Motion Lower Extremity ROM Assessment Within Functional Limits Strength Lower Extremity Strength Assessment Bilaterally Impaired Comments Strength Comments LLE: 4-/5 RLE: 3+/5 Coordination Assessment Gross Coordination Gross Coordination WNL Muscle Tone Muscle Tone WNL Yes M6 PT-IP Treatment Start: 07/25/21 13:16 Freq: NEEDED Status: Active Protocol: Document 07/25/21 11:40 AB (Rec: 07/25/21 13:31 AB [email or web address]) Physical Therapy Treatment Education Education Provided Safety M7 PT-IP Assessment and Plan Start: 07/25/21 13:16 Freq: NEEDED Status: Active Protocol: Document 07/25/21 11:40 AB (Rec: 07/25/21 13:31 AB [email or web address]) PT Summary Assessment and Plan Potential Rehabilitation Potential Good Status of Condition at Evaluation Evolving Summary Impairments Pain,Strength,Balance, Coordination,Sensation, Transfers,Gait,Activity Tolerance Progress Towards Goals Slow Progress due to Medical Issues Assessment Summary Pt eval completed. Pt need SBA for safety and has increase HR with activity to 166 per nurse limiting activity tolerance. pt able to mobilize safely and prior to admission has been limited and ambulation to short distance and uses his electric scooter for outdoor mobility. No furthe PT intervention indicated at this time. informed nuse. Frequency of Treatment Frequency Of Treatment Discharge Recommendations To Nursing Amount of Assist Needed Standby Assistance Discharge Recommendations Transportation Needs at Discharge Private Vehicle
[2021-07-25] MEDS: APIXABAN 5 MG TABLET PO ×2 (12:24→21:42)
[2021-07-25] MEDS: METOPROLOL IR 50 MG TABLET PO (12:40)
[2021-07-25] MEDS: MAGNESIUM SULFATE 2 GM/50 ML PIGGYBACK IV (12:49)
[2021-07-25] MEDS: SODIUM CHLORIDE 0.9% 500 ML 1000 ML IV (12:49)
--- NOTE | 2021-07-25 13:22 | P.PN_ITS ---
Subjective Subjective Date Patient Seen: 07/25/21 Time Patient Seen: 09:00 Interval history: Today at rest he felt well. However with activity and getting up he became tachycardic and lightheaded. Exam Vital Signs (past 8 hours): - 07/25/21 06:36 07/25/21 08:00 07/25/21 11:17 Temperature 97.8 F 97.2 F L Pulse Rate 115 H 86 88 Respiratory Rate 16 16 Blood Pressure 140/62 125/71 133/72 Pulse Oximetry 96 97 Oxygen Delivery Method Room Air Oxygen Flow Rate 0 Narrative Exam Narrative: General:?no acute distress Lungs:? clear bilaterally Cardio:? irregular Abdomen:? Soft nontender, obese Musculoskeletal:?trace bilateral pitting edema Objective Labs Result Diagrams: 07/25/21 07:05 07/25/21 07:05 Labs: Laboratory Results - last 24 hr 07/24/21 07/25/21 07/25/21 15:47 07:05 07:05 WBC 10.3 RBC 3.54 L Hgb 11.1 L Hct 32.8 L MCV 92.5 MCH 31.2 MCHC 33.8 RDW 15.7 H Plt Count 194 APTT 47 H Sodium 139 Potassium 4.3 Chloride 97 L Carbon Dioxide 34 H BUN 26 H Creatinine 1.05 Estimated GFR > 60.0 BUN/Creatinine Ratio 24.8 H Glucose 212 H Calcium 9.7 Magnesium 07/25/21 07/25/21 07:05 07:05 WBC RBC Hgb Hct MCV MCH MCHC RDW Plt Count APTT 30 D Sodium Potassium Chloride Carbon Dioxide BUN Creatinine Estimated GFR BUN/Creatinine Ratio Glucose Calcium Magnesium 1.8 PFSH Medical History Anemia Atrial fibrillation CAD (coronary artery disease), [place] coronary artery Cognitive impairment, mild, so stated Constipation COPD (chronic obstructive pulmonary disease) Diabetes mellitus Diastolic CHF Essential tremor GERD (gastroesophageal reflux disease) Gout HLD (hyperlipidemia) HTN (hypertension) Low back pain Surgical History H/O abdominal surgery H/O arthroscopic knee surgery H/O rotator cuff surgery History of back surgery Family History (Updated 07/23/21 @ 22:59 by HUMPHREY Lopez) Mother Diabetes mellitus Cancer Father Diabetes mellitus Cancer Social History household members: spouse Smoking Status: Former smoker alcohol intake: never Assessment & Plan Assessment & Plan narrative: 1. Atrial flutter/atrial fibrillation with RVR, acute, in the setting of history of [place], coronary artery disease-post stent, hypertension, acute on chronic, present on admission -EKG demonstrated atrial flutter 4-1, a rate of [address] wave changes.? Patient is stable asymptomatic -ED Consult: Dr. Sanchez [employer] flatbed truck driver was consulted recommended patient be put on a heparin drip, trend troponins, complete echo -patient requires admission for adequate diuresis started on IV lasix BID -patient placed on heparin drip and switched to eliquis -troponin x3 negative -conitnue patient's propanolol, doxazosin, and lisinopril, consider holding for sustained hypotension & bradycardia, continue to monitor V/S. -Continue atrovastatin, aspirin -patient diuresed -5.5L by AM of 07/25, was dizzy on getting up and tachycardic ---ordered for IV bolus of fluid, started metoprolol, and repleted magnesium 2. COREY, acute , likely prerenal, present on admission -Previous 11/2020 creatinine 1.02, on admission 1.36, labs BUN 19 -given lasix and improved to 1.05 3. Hypomagnesia, acute, present on admission, likely secondary to COREY and CHF exacerbation -magnesium of 1.1 was given 2 g in ED, repeat 1.4 was given 4gm mag, repeat 1.8 and given additional mag 4.?Diastolic heart failure, acute on chronic, exacerbation, present on admission -last known echo 2018 an EF of 60-65% diastolic heart failure, repeat appears unchanged -chest x-ray demonstrated low lung volumes with atelectasis vs. mild infiltrates at the left lung base. -BNP normal at 225 -diuresis with Lasix 40 IV b.i.d, held on am of 07/25 -monitor I/O, daily weights, fluid restriction to 2000 cc per day, low sodium diet -Resp consult -Continue trilogy, QVAR, albuterol 5. Non insulin-dependent type 2 diabetes, hyperglycemia, acute on chronic, present on admission-uncontrolled -patient's initial blood sugar 243 on admit, A1c ordered 8.5% -patient placed on low carb diet, blood sugar checks a.c. HS, low-dose sliding scale, initiated Lantus 10 units q.h.s. during acute illness ? 6.? Hypothyroidism, acquired, chronic, present on admission -TSH WNL -continue levothyroxine 8.? GERD, chronic, present on admission -continue pantoprazole 40 mg daily 9.? COPD, chronic, present on admission -continue duo nebs q.6 hours as needed -continue albuterol HFA inhaler, QVAR -continue prednisone 10. Anemia, acute on chronic, present on admission -HGB 9.9 and HCT 29.1 -slightly lower than baseline. -monitor for bleeding, hemooccult as needed 11. Gout, chronic, present on admission -continue patient's allopurinol 12. Obesity as evidence by BMI of 39.9, acute on chronic, present on admission -consideration will be given for dietary consultation Time Spent With Patient Critical Care time: I spent a total of [] minutes of critical care time on this patient's care today; this time is exclusive of procedural time. Quality VTE Deep Vein Thrombosis/Pulmonary Embolism Present on Admission: No
--- NOTE | 2021-07-25 14:55 | DIET.PN1 ---
Dietary Progress Note Assessment: 76y M admitted for afib with RVR screened by RD for large meal ordering and high BGs. Pts BGs have been in 200-300 range over past 36h, diet indicates low carb, however pt ordering upwards of three entrees at each meal which kitchen is paring down. Kitchen desires clarification on what low carb means, RD adjusted diet to indicate 45g CHO/meal or Medium which is appropriate for male with A1c 8.5 and BMI 35. Ht: 185.42 cm Wt: 123.4 kg BMI: 35.9 Last BM: 07/23/21 (07/24/21 09:31) MNA: 14 Richard Score: 19 Diet: 07/23/21 Breakfast Fluid Restriction Diet Diet Modifications: Total fluid amount: 2,000 Amount allotted to patient trays: 100 Free water included in total: Yes Fluid in addition to trays: 9461-2491 amount: 900 [id number] amount: 900 Low Sodium Diet (2gm) Diet Modifications: 45g CHO Nutrition Percent Meal Consumed 100% 07/25/21 13:49 Percent Meal Consumed 100% 07/25/21 08:30 Percent Meal Consumed 100% 07/24/21 17:28 Percent Meal Consumed 100% 07/24/21 12:30 Percent Meal Consumed 100% 07/24/21 09:06 Labs: RBC 3.54 X10^6/uL (4.5-5.9) L 07/25/21 07:05 Hgb 11.1 g/dL (13.5-17.5) L 07/25/21 07:05 Hct 32.8 % (41-53) L 07/25/21 07:05 Creatinine 1.05 mg/dL (0.66-1.25) 07/25/21 07:05 Hemoglobin A1c 8.5 % (4.0-6.0) H 07/23/21 16:00 Lactate 2.0 mmol/L (0.7-2.1) 07/23/21 16:10 NT-Pro-B Natriuret Pep 225 pg/mL (<450) 07/23/21 16:10 Interventions: 1. Recc optimizing BG to remain <200 through 45g CHO limit at meals, limiting sugar from nourishment fridges, and medication adjustment as needed. Electronically Signed by: Abi Levin 07/25/21 14:55 Clinical Dietitian [address] [address]
--- NOTE | 2021-07-25 16:04 | CM.DANOTE ---
DCP Assessment: Patient is a 76 yr old male here for AfiB and edema patients PCP is Dr. Jarrell. CM met with patient and hsi marcela at the bedside and explained role. patient told CM to talk to his . CM spoke with both patient and his about DC planning. Patient currently lives with his in a single level home that has 3 steps to get into the home. patient usually walks with a cane and patients states he is usually independent with ADLs. Patient does not drive any more due to medications he takes. Patients does all the driving. 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 CM asked patient how he felt about Home health and he stated he doesn't think he will need HH at DC. patient stated his pain was 2/10 at time of CM visit. patients was planning on DC home today but his heart rate was still elevated so the provider wanted to keep him one more night and give the patients IV fluids to see if that helped. I: [facility] and self pay Plan: Dc home with with no DC planning needs noted at this time. CM department will continue to follow to help with any new DC planning needs that may arise. Joyce Dominguez Discharge Planning/Care Management Advanced directive, confirm from FAMILY Start: 07/24/21 09:36 Freq: Q24H Status: Active Protocol: Document 07/24/21 09:36 KMD (Rec: 07/24/21 11:17 KMD [id number]) Advance Directive, confirm on record Time 11:17 Person contacted Pt Copy received No Document 07/25/21 09:36 KMD (Rec: 07/25/21 10:22 KMD [id number]) Advance Directive, confirm on record Time 11:17 Person contacted Pt Copy received No Time 10:22 Person contacted Patient Copy received No CM Discharge Assessment Start: 07/25/21 16:02 Freq: Status: Active Protocol: Document 07/25/21 16:02 HS (Rec: 07/25/21 16:04 HS [id number]) Discharge Planning Assessment Assigned Nuclear Worker Technician Joyce Dominguez DPOA/Assigned Designee Name Marcela Denton - Contact Information [phone] Advance Directives? Yes Advance Directives on File Yes History Provided By Patient,Significant Other, Medical Record Prior Living Arrangements Mobile home Household Members spouse Type of transporation used prior to Relies on Others admit Comment patients does all the driving Independent with ADL's Yes Is patient alert and oriented? Yes Comment patient does all the cooking, shopping and meal prep in the home Caregiver for Another No DME Already Rented / Owned FWW / Walker,Cane Barriers to Discharge No Discharge Plan Home Transportation Arrangement Spouse Additional Comment patient stated that he does not want HH services Whiteboard Updated in Patient Room with Yes name and ext. # of Nuclear Worker Technician Review Status In Process Next Review Type Continued Stay Review
[2021-07-25] MEDS: INSULIN GLARGINE 100 UNIT/ML 3ML PEN 10 UNIT SUBCUT (21:33)
[2021-07-25] MEDS: DULOXETINE 30 MG CAPSULE 60 MG PO (21:36)
[2021-07-25] MEDS: ATORVASTATIN 20 MG TABLET 40 MG PO (21:38)
[2021-07-25] MEDS: lisinopriL 5 MG TABLET PO (21:41)
[2021-07-26] VITALS: BP 123/70; PULSE 62; RESP 14; TEMP 36.2; O2SAT 98
[2021-07-26 06:00] VITALS: BP 123/70; PULSE 64; RESP 14; TEMP 36; O2SAT 95
[2021-07-26] MEDS: ACETAMINOPHEN 325 MG TABLET 650 MG PO ×3 (06:20→17:51)
[2021-07-26] MEDS: OXYCODONE IR 5 MG TABLET PO ×3 (06:20→17:48)
[2021-07-26] MEDS: LEVOTHYROXINE 150 MCG TABLET PO (06:20)
[2021-07-26 06:21] VITALS: BP 123/70; PULSE 64
[2021-07-26] MEDS: DOXAZOSIN 4 MG TABLET 8 MG PO (06:21)
[2021-07-26 06:49] LABS: Hematocrit 29.9 % (41-53); Hemoglobin 10.2 g/dL (13.5-17.5); Mean Corpuscular Hemoglobin 31.6 PG (26-34); Mean Corpuscular Volume 93.1 fL (80-100); Platelet Count 174 X10^3/uL (150-400); Red Blood Cell Count 3.21 X10^6/uL (4.5-5.9); White Blood Cell Count 7.3 X10^3/uL (4.5-11.0)
[2021-07-26 06:57] LABS: PTT Partial Thromboplastin Tim 34 SECONDS (26.4-36.2)
[2021-07-26 07:01] LABS: BUN Creatinine Ratio 26.4 (6-22); Blood Urea Nitrogen 28 mg/dL (9-20); Carbon Dioxide 30 mmol/L (22-32); Chloride 98 mmol/L (98-107); Estimated Glomerular Filt Rate > 60.0 mL/min (>60); Glucose 190 mg/dL (80-110); HEMOLYSIS < 15 (0-50); Magnesium 1.9 mg/dL (1.6-2.3); Sodium 137 mmol/L (137-145)
[2021-07-26] MEDS: INSULIN LISPRO 100 UNIT/ML 3ML VIAL SUBCUT ×3 (08:34→17:49)
[2021-07-26] MEDS: DOCUSATE 100 MG CAPSULE PO (08:40)
[2021-07-26] MEDS: allopurinoL 100 MG TABLET PO (08:40)
[2021-07-26] MEDS: GABAPENTIN 100 MG CAPSULE PO ×2 (08:40→15:13)
[2021-07-26] MEDS: PANTOPRAZOLE DR 20 MG TABLET PO (08:40)
[2021-07-26] MEDS: ASPIRIN EC 81 MG TABLET PO (08:40)
[2021-07-26] MEDS: APIXABAN 5 MG TABLET PO (08:40)
[2021-07-26 09:45] VITALS: BP 106/68; PULSE 94; RESP 20; TEMP 35.8; O2SAT 95
[2021-07-26] MEDS: FUROSEMIDE 40 MG TABLET PO (10:07)
[2021-07-26] MEDS: dilTIAZem 30 MG TABLET PO ×2 (10:07→15:13)
[2021-07-26] MEDS: SODIUM CHLORIDE 0.9% FLUSH 10 ML IV (10:07)
[2021-07-26] MEDS: PROPRANOLOL 10 MG TABLET 60 MG PO ×2 (10:08→15:12)
[2021-07-26 12:19] VITALS: BP 118/68; PULSE 81; RESP 21; TEMP 35.8; O2SAT 97
--- NOTE | 2021-07-26 18:44 | P.DS_ITS ---
History of Present Illness History of Present Illness Chief complaint: swelling, diabetic Narrative: Per Tammy Goldsmith Bossman Denton is a 76-year-old male with a a history of DC after back surgery with a stent placed, DCHF EF 60-65%, gout, hypertension, CAD, GERD, COPD-night time trilogy, chronic anemia, hypothyroidism, type 2 diabetes [id number], obesity, back surgery x6, several stomach surgeries, knee arthroscopy x2 and appendectomy.?Who presented to the ED with increasing swelling bilateral lower extremities with nightly occurrences of irregular heart rate, and SOB x2 weeks, denies orthopnea. PCP increased his Lasix from 40-80 mg daily about 5 days ago.? He has been taking 40 in the morning and 40 in the afternoon, patient notes that he has not had any increased urinary output.? Zaheer mcgee denies a history of urinary retention or BPH.? ? He notes it is worse with exertion he will get some chest pain on get lightheaded, taking nitro sublingual and rest improves his symptoms.? He has not passed out but he has felt lightheaded.? Patient fevers, body aches,chills, cough, cold, congestion, recent illness injury or trauma.? Patient denies any exposure to any ill persons, no other changes in medication.? Patient notes that his of bilateral lower extremity edema has been worsening and is constant, present upon awaking.? Patient denies any known cardiac arrhythmias.?Has been more hyperglycemic around 264, only takes glimepride.? Does use a trilogy at night with 2 L of O2.? No tob acco, rare alcohol, no illicit.? Dr. Jarrell is his PCP. Patient's vitals upon admit temp 96.9?, BP 152/82, HR 72, R 20, O2 saturation 95% on room air.? Patient's EKG demonstrated atrial flutter 41, a rate of [address] wave changes.? Patient's chest x-ray demonstrated low lung volumes with atelectasis vs. mild infiltrates at the left lung base.? Dr. Sanchez soldering machine feeder was consulted recommended patient be put on a heparin drip trend troponins a complete echo tomorrow.? Patient to be transferred to a facility with cardiac, if troponins become positive or patient becomes unstable.? Patient 's HGB 9.9 and HCT 29.1 reflected his chronic anemia slightly lower than baseline.? Patient demonstrated COREY likely prerenal.? Previous 11/28/2020 labs BUN 19 creatinine 1.02, GFR >60.? Today's BUN 30, creatinine 1.36, glucose 243, GFR 50.9, BNP normal at 225, initial troponin WNL, lipase 12, TSH WNL, procalcitonin WNL, viral panel negative.? Patient was shown to have a magnesium of 1.1 was given 2 g in ED, 40 mg of Lasix in ED, and placed on heparin drip.? Patient admitted for atrial flutter, COREY, hypomagnesia, diastolic CHF exacerbation. Discharge Providers Provider Date of admission: 07/23/21 18:18 Discharge Date: 07/26/21 Primary care physician: Otto Jarrell MD Consults: 07/23/21 20:53 Consult to Respiratory Therapy Evaluate & Treat Comment: Physician Instructions: Evaluate and treat 07/25/21 10:18 Consult to Physical Therapy Evaluate & Treat Comment: Physician Instructions: Evaluate and Treat Discharge provider: Mars Garcia MD Summary Hospital Course Discharge Diagnosis: 1. Atrial flutter with RVR 2. CAD s/p stents 3. HTN 4. COREY 5. Acute on chronic CHFpEF 6. Type 2 Diabetes 7. Hypothyroidism 8. GERD 9. COPD 10. Anemia 11. Gout 12. Obesity 13. Essential tremor Hospital Course: Mr. Denton came in to the hospital with lower extremity swelling and palpitations. He was found to be in atrial flutter. Primarily in 4-1 with a rate in the 60s. He was notable volume overloaded on admission. He was diuresed in total net negative -3.95L. With diuresis he did become more tachycardic. He was not able to be controlled with metoprolol. This was stopped. He was trialed on diltiazem and his heart rate improved, and he was discharged on this. He was planned to be discharged on eliquis, but his stated the medication was not affordable. He will be discharged on coumadin. He should follow up with his PCP for further monitoring. He will continue on lasix. For his atrial flutter he is referred to cardiology to follow him for his congestive heart failure and atrial flutter and to consider cardioversion or ablation. Discharge time 35 minutes Exam Vital Signs (past 8 hours): - 12/10/21 12:19 Temperature 96.5 F L Pulse Rate 81 Respiratory Rate 21 Blood Pressure 118/68 Pulse Oximetry 97 Oxygen Delivery Method Room Air Oxygen Flow Rate 0 Narrative Exam Narrative: General:?no acute distress Lungs:? clear bilaterally Cardio:? irregular Abdomen:? Soft nontender, obese Musculoskeletal:?trace bilateral pitting edema Objective Labs Result Diagrams: 07/26/21 06:05 07/26/21 06:05 Labs: Laboratory Results - last 24 hr 07/26/21 07/26/21 07/26/21 06:05 06:05 06:05 WBC 7.3 RBC 3.21 L Hgb 10.2 L Hct 29.9 L MCV 93.1 MCH 31.6 MCHC 34.0 RDW 16.0 H Plt Count 174 APTT 34 Sodium 137 Potassium 4.0 Chloride 98 Carbon Dioxide 30 BUN 28 H Creatinine 1.06 Estimated GFR > 60.0 BUN/Creatinine Ratio 26.4 H Glucose 190 H Calcium 9.0 Magnesium 1.9 PFSH Medical History Anemia Atrial fibrillation CAD (coronary artery disease), [place] coronary artery Cognitive impairment, mild, so stated Constipation COPD (chronic obstructive pulmonary disease) Diabetes mellitus Diastolic CHF Essential tremor GERD (gastroesophageal reflux disease) Gout HLD (hyperlipidemia) HTN (hypertension) Low back pain Surgical History H/O abdominal surgery H/O arthroscopic knee surgery H/O rotator cuff surgery History of back surgery Family History (Updated 07/23/21 @ 22:59 by HUMPHREY Lopez) Mother Diabetes mellitus Cancer Father Diabetes mellitus Cancer Social History household members: spouse Smoking Status: Former smoker alcohol intake: never Discharge Plan Discharge Plan Patient Disposition: Home Provider Discharge Comment: Mr. Denton came in to the hospital with leg swelling. He did well with lasix to remove fluid. He was found to be in an abnormal heart rhythm called atrial flutter. He was started on a medication to help control his heart rate called diltiazem. He is referred to cardiology for further treatment. He was recommended to start on eliquis, but said the aguila w as too expensive and preferred warfarin. He should have his INR closely followed by his PCP and rechecked next week. Discharge orders & Medications Prescriptions: New diltiazem HCl 30 mg Tablet 30 mg PO Q6H Qty: 120 0RF warfarin 5 mg tablet 5 mg PO DAILY Qty: 30 0RF Continued albuterol sulfate [Ventolin HFA] 90 MCG/PUFF HFA aerosol inhaler 2 puff INH Q6HP PRN (Reason: Shortness Of Breath) Qty: 0 0RF lisinopril 5 MG tablet 5 mg PO BEDTIME Qty: 0 0RF polyethylene glycol 3350 [Miralax] 119 GM powder 17 gm PO QDAYP PRN (Reason: Constipation) Qty: 0 0RF glimepiride 1 MG tablet 1 mg PO BIDCC Qty: 0 0RF Label Comments: 0900 1700 furosemide 40 mg tablet 40 mg PO BID 0RF atorvastatin 40 mg tablet 1 tab PO BEDTIME 0RF propranolol 60 mg tablet 1 tab PO TID 0RF Label Comments: 06 1200 2230 pantoprazole 20 mg tablet,delayed release (DR/EC) 20 mg PO QAM 0RF doxazosin 8 mg tablet 8 mg PO 0630 0RF aspirin 81 mg Tablet,Delayed Release (Dr/Ec) 81 mg PO 0630 0RF acetaminophen 500 mg Capsule 2 cap PO TID 0RF multivitamin Tablet 1 tab PO QAM 0RF nitroglycerin 0.4 mg Tablet, Sublingual 0.4 mg SUBLINGUAL Q5-15M PRN (Reason: Chest Pain) 0RF docusate sodium 100 mg Capsule 100 mg PO QAM 0RF cholecalciferol (vitamin D3) [Vitamin D3] 1,000 unit Capsule 1,000 unit PO QAM 0RF Qvar RediHaler 80 mcg/actuation Hfa Aerosol Breath Activated 2 puff Inhalation BID PRN (Reason: Shortness Of Breath) 0RF allopurinol 100 mg tablet 100 mg PO QAM 0RF oxycodone 5 mg tablet 5 mg PO Q6HR 0RF Label Comments: TAKE 2 TABS AT 6 AM FOR BACK PAIN THEN 1 TAB EVERY 3 HOURS UNTIL BEDTIME- pt takes scheduled q6hr. Rx Instructions: 01/26/1800/000 duloxetine 60 mg Capsule,Delayed Release(Dr/Ec) 60 mg PO BEDTIME 0RF levothyroxine 100 mcg tablet 300 mcg PO QAM 0RF gabapentin 100 mg capsule 100 mg PO TID Qty: 90 0RF oxybutynin chloride 5 mg tablet 1 tab PO BEDTIME Qty: 0 0RF Label Comments: Follow up/Referrals: [facility] [Provider Group] (atrial flutter, ?ablation, please follow up within 1-2 weeks if possible) Otto Jarrell MD [Primary Care Provider] - Diet/Activity/Treatments Diet: Carb-consistent/Diabetic Visit Report/Discharge Packet Instructions: DI for Heart Failure, DI for Prescription Opioid Use Discharge Data Primary Care Provider: Otto Jarrell V Quality VTE Deep Vein Thrombosis/Pulmonary Embolism Present on Admission: No MIPS - DC The patient has current or prior documentation of left ventricular ejection fraction (LVEF) less than 40%, or moderate or severely depressed left ventricular systolic function.: No
== END 2021-07-26 18:44 | disposition home or self-care (01) | DRG 291 ==
LOC: ED 16:34 → AC 18:18
PROVIDERS: Internal Medicine; Admitting Provider Student in an Organized Health Care Education/Training Program; Emergency Provider Nurse Practitioner Family; PCP Internal Medicine; Referring Provider Emergency Medicine; Visit Provider Student in an Organized Health Care Education/Training Program
DX: I11.0 Hypertensive heart disease with heart failure (principal); I50.33 Acute on chronic diastolic (congestive) heart failure; N17.9 Acute kidney failure, unspecified; I48.92 Unspecified atrial flutter; I48.91 Unspecified atrial fibrillation; E83.42 Hypomagnesemia; E66.9 Obesity, unspecified; Z68.39 Body mass index [BMI] 39.0-39.9, adult; E11.65 Type 2 diabetes mellitus with hyperglycemia; E03.9 Hypothyroidism, unspecified; K21.9 Gastro-esophageal reflux disease without esophagitis; M1A.9XX0 Chronic gout, unspecified, without tophus (tophi); I25.10 Atherosclerotic heart disease of native coronary artery without angina pectoris; Z95.5 Presence of coronary angioplasty implant and graft; Z87.891 Personal history of nicotine dependence; Z79.84 Long term (current) use of oral hypoglycemic drugs; Z20.822 Contact with and (suspected) exposure to COVID-19
CPT/HCPCS: 36415; 71045; 80048; 80053; 81003; 82550; 82962; 83036; 83605; 83690; 83735; 83880; 84145; 84443; 84484; 85025; 85027; 85730; 87633; 87635; 93005; 93010; 93306; 96365; 96366; 96375; 97161; 99284; C9803; A9270; J1644; J1815; J1940; J3475

== ENCOUNTER 2021-07-26 20:03 | Emergency (ER) | payer OTHER, SELFPAY ==
[2018-06-15 04:12] VITALS: PULSE 75; RESP 30; O2SAT 96
[2021-07-24 09:31] VITALS: BMI 35.9
--- NOTE | 2021-07-26 20:09 | DI.CT.S_ITS ---
PROCEDURE: CT HEAD/BRAIN WO CON INDICATIONS: fall on thinners TECHNIQUE: Noncontrast 4.5 mm thick angled axial sections acquired from the foramen magnum to the vertex, with coronal and sagittal reformats. For radiation dose reduction, the following was used: automated exposure control, adjustment of mA and/or kV according to patient size. COMPARISON: [facility], CT, CT HEAD/BRAIN WO CON, 07/20/2018, 12:23. FINDINGS: Image quality: Excellent. CSF spaces: Basal cisterns are patent. No extra-axial fluid collections. Ventricles are normal in size and shape. Brain: No midline shift. No intracranial masses or hemorrhage. Dill-white matter interface is normal. Skull and face: Small right frontal anterior scalp hematoma and laceration. Calvarium and visualized facial bones are intact, without suspicious lesions. Sinuses: Visualized sinuses and mastoids are clear. IMPRESSION: No acute intracranial abnormality. Small right anterior frontal scalp hematoma. Dictated by: Teja Sena M.D. on 07/26/2021 at 20:44 Approved by: Teja Sena M.D. on 07/26/2021 at 20:44
[2021-07-26 20:14] VITALS: BP 105/55; PULSE 45; RESP 18; TEMP 37; O2SAT 97; BMI 35.6
--- NOTE | 2021-07-26 21:03 | DI.RAD.S_ITS ---
PROCEDURE: XR LUMBAR SPINE 2-3V INDICATIONS: lumbar pain after fall TECHNIQUE: 3 views of the lumbar spine were acquired. COMPARISON: [facility] [place], SPINE LUMB 2 OR 3VW, 10/17/2015, 13:34. FINDINGS: These images demonstrate extensive thoracolumbar fixation changes. The hardware construct is not significantly changed in appearance from October 2015 exam. There is no evidence of hardware failure or other acute complicating hardware feature. There is no fracture identified radiographically. There is no listhesis or other new malalignment. IMPRESSION: No acute finding demonstrated radiographically. Dictated by: Teja Sena M.D. on 07/26/2021 at 21:42 Approved by: Teja Sena M.D. on 07/26/2021 at 21:47
--- NOTE | 2021-07-26 21:03 | ED.FALL ---
HPI - Fall General Chief Complaint: Fall Stated Complaint: Fall/On thinners Time Seen by Provider: 07/26/21 20:05 Source: patient and EMS Mode of arrival: EMS History of Present Illness HPI Narrative: Patient is a 76-year-old male who is on Eliquis to was walking into his home this evening when he tripped and dropping the bag that he was caring and then tripped the back. He fell forward. Hitting his head on the ground. There was no loss of consciousness. Did sustain abrasions to his forehead. Did sustain pain to his lower back. Also has upper back pain but this is not new. Reports no other injuries from the event. Arrives by EMS for evaluation. Related Data Home Medications Medication Instructions Recorded Confirmed albuterol sulfate 90 mcg/actuation 2 puff INH Q6HP PRN #0 puff 05/20/13 07/23/21 aerosol inhaler (Ventolin HFA) lisinopril 5 mg tablet 5 mg PO BEDTIME #0 tab 05/20/13 07/23/21 polyethylene glycol 3350 17 17 gm PO QDAYP PRN #0 05/20/13 07/23/21 gram/dose oral powder (Miralax) glimepiride 1 mg tablet 1 mg PO BIDCC #0 09/05/17 07/23/21 acetaminophen 500 mg capsule 2 cap PO TID 06/07/18 07/23/21 aspirin 81 mg tablet,delayed 81 mg PO 0630 06/07/18 07/23/21 release atorvastatin 40 mg tablet 1 tab PO BEDTIME 06/07/18 07/23/21 beclomethasone dipropionate 80 2 puff INHALATION BID PRN 06/07/18 07/23/21 mcg/actuation HFA breath activated aerosol (Qvar RediHaler) cholecalciferol (vitamin D3) 25 1,000 unit PO QAM 06/07/18 07/23/21 mcg (1,000 unit) capsule (Vitamin D3) docusate sodium 100 mg capsule 100 mg PO QAM 06/07/18 07/23/21 doxazosin 8 mg tablet 8 mg PO 0630 06/07/18 07/23/21 furosemide 40 mg tablet 40 mg PO BID 06/07/18 07/23/21 multivitamin 1 tab PO QAM 06/07/18 07/23/21 nitroglycerin 0.4 mg sublingual 0.4 mg SUBLINGUAL Q5-15M PRN 06/07/18 07/23/21 tablet pantoprazole 20 mg tablet,delayed 20 mg PO QAM 06/07/18 07/23/21 release propranolol 60 mg tablet 1 tab PO TID 06/07/18 07/23/21 levothyroxine 100 mcg tablet 300 mcg PO QAM 07/20/18 07/23/21 allopurinol 100 mg tablet 100 mg PO QAM 07/23/21 07/23/21 duloxetine 60 mg capsule,delayed 60 mg PO BEDTIME 07/23/21 07/23/21 release oxycodone 5 mg tablet 5 mg PO Q6HR 07/23/21 07/23/21 Previous Rx's Medication Instructions Recorded gabapentin 100 mg capsule 100 mg PO TID #90 cap 07/23/18 oxybutynin chloride 5 mg tablet 1 tab PO BEDTIME #0 tab 07/23/18 diltiazem HCl 30 mg tablet 30 mg PO Q6H #120 tab 07/26/21 warfarin 5 mg tablet 5 mg PO DAILY #30 tab 07/26/21 Allergies Allergy/AdvReac Type Severity Reaction Status Date / Time fentanyl [FENTANYL] Allergy Severe HIVES, Verified 07/23/21 18:32 ITCHING iodine [IODINE] Allergy Severe RASH - Verified 07/23/21 18:32 TOPICAL AND IV CONTRAST shellfish derived Allergy Severe Abdominal Verified 07/23/21 18:32 [SHELLFISH DERIVED] Pain cyclobenzaprine Allergy Intermediate ITCHING Verified 07/23/21 18:32 [CYCLOBENZAPRINE] diclofenac [DICLOFENAC] Allergy Intermediate ITCHING Verified 07/23/21 18:32 methadone [METHADONE] Allergy Intermediate ITCHING Verified 07/23/21 18:32 hydromorphone [HYDROMORPHONE] Allergy Mild ITCHING Verified 07/23/21 18:32 hydroxyzine [HYDROXYZINE] Allergy Mild FEVER, Verified 07/23/21 18:32 SWEATS ibuprofen [IBUPROFEN] Allergy Unknown Verified 07/23/21 18:32 aspirin [ASPIRIN] AdvReac Severe STOMACH Verified 07/23/21 18:32 PAIN & HIVE W/325MG, CAN TAKE 81 MG solifenacin [From [facility]] AdvReac Unknown INCREASE Verified 07/23/21 18:32 PVR AND URINARY SX RACHEL AdvReac Unknown DOES NOT Uncoded 11/25/17 12:09 WORK Review of Systems Constitutional Constitutional: Denies headache(s) Eyes Eyes: Denies change in vision ENT Ears, Nose, Mouth, and Throat: Denies headache(s) Cardiovascular Cardiovascular: Reports system reviewed and no additional complaints, except as documented Respiratory Respiratory: Reports system reviewed and no additional complaints, except as documented Gastrointestinal Gastrointestinal: Reports system reviewed and no additional complaints, except as documented Genitourinary Genitourinary: Reports system reviewed and no additional complaints, except as documented Musculoskeletal Musculoskeletal: Reports back pain Integumentary/Breasts Skin/Breast: Reports system reviewed and no additional complaints, except as documented and Reports as per HPI Neurologic Neurologic: Reports system reviewed and no additional complaints, except as documented and Denies headache(s) Hematologic/Lymphatic On Anticoagulants: No Patient History Medical History Anemia Atrial fibrillation CAD (coronary artery disease), [place] coronary artery Cognitive impairment, mild, so stated Constipation COPD (chronic obstructive pulmonary disease) Diabetes mellitus Diastolic CHF Essential tremor GERD (gastroesophageal reflux disease) Gout HLD (hyperlipidemia) HTN (hypertension) Low back pain Surgical History H/O abdominal surgery H/O arthroscopic knee surgery H/O rotator cuff surgery History of back surgery Family History (Updated 07/23/21 @ 22:59 by HUMPRHEY Lopez) Mother Diabetes mellitus Cancer Father Diabetes mellitus Cancer Social History household members: spouse Smoking Status: Former smoker alcohol intake: never Smoking Status: Former smoker Substance Use Type: does not use Exam Initial Vital Signs Initial Vital Signs: Vital Signs Temperature 98.6 F 07/26/21 20:14 Pulse Rate 45 L 07/26/21 20:14 Respiratory Rate 18 07/26/21 20:14 Blood Pressure 105/55 L 07/26/21 20:14 Pulse Oximetry 97 07/26/21 20:14 Const General: cooperative, healthy appearing and comfortable Limitations: mental status not altered HENMT Head: abrasion (Forehead) and No palpable skull fracture Eyes General: appearance normal, both eyes and all related structures Chest Chest: normal inspection of the chest Resp Effort & Inspection: normal respiratory effort Cardio Rate: bradycardic GI Inspection: non-distended Back/Spine/Pelvis Back: normal to inspection Cervical Spine: No cervical spinal tenderness Thoracic/Lumbar Spine: lumbar spinal tenderness Skin Other: Abrasion to forehead without hematoma. Neuro General: patient alert, patient awake, patient oriented x3 and moves all extremities Extrem General: normal to inspection Psych Appearance: grossly normal and well kempt Scores GCS [place] coma scale eye opening: Spontaneous [place] coma scale verbal response: Orientated [place]ucho coma scale motor response: Obey commands Lucho coma scale total score: 15 Nexus Score for C-Spine Focal Neurologic deficit present: No Midline spinal tenderness present: No Altered level of conciousness present: No Intoxication present: No Distracting Injury Present: No Nexus Criteria for C-spine: 0 Course Orders Ordered: ED Orders 07/26/21 20:09 CT head/brain wo con Stat 07/26/21 21:03 XR lumbar spine 2-3V Stat Vital Signs Vital signs: Vital Signs - 8 hr 07/26/21 20:14 07/26/21 22:10 Temperature 98.6 F Pulse Rate 45 L 50 L Respiratory Rate 18 20 Blood Pressure 105/55 L 114/56 L Pulse Oximetry 97 96 MDM - Fall Imaging Data CT scan - head: Radiologist's Impression: [place] [address] CT Scan Report Signed Patient: Bossman Denton MR#: [id number] : 1945 Acct:[id number] Age/Sex: 76 / M Date of Service: 07/26/21 Loc: ED Accession Number: [id number] ?? Procedure: CT head/brain wo con Ordering Provider: Bossman Purdy D.O. PROCEDURE:? CT HEAD/BRAIN WO CON ? INDICATIONS:? fall on thinners ? TECHNIQUE:? Noncontrast 4.5 mm thick angled axial sections acquired from the foramen magnum to the vertex, with coronal and sagittal reformats.? For radiation dose reduction, the following was used:? automated exposure control, adjustment of mA and/or kV according to patient size.? ? COMPARISON:? [facility], CT, CT HEAD/BRAIN WO CON, 07/20/2018, 12:23. ? FINDINGS:? Image quality:? Excellent.? ? CSF spaces:? Basal cisterns are patent.? No extra-axial fluid collections.? Ventricles are normal in size and shape.? ? Brain:? No midline shift.? No intracranial masses or hemorrhage.? Dill-white matter interface is normal.? ? Skull and face:? Small right frontal anterior scalp hematoma and laceration.? Calvarium and visualized facial bones are intact, without suspicious lesions.? ? Sinuses:? Visualized sinuses and mastoids are clear.? ? IMPRESSION:? No acute intracranial abnormality.? Small right anterior frontal scalp hematoma. ? ? Dictated by: Teja Sena M.D. on 07/26/2021 at 20:44 ? ? Approved by: Teja Sena M.D. on 07/26/2021 at 20:44? Lumbar spine x-ray: Radiologist's Impression: [place] [address] XRay Report Signed Patient: Bossman Denton MR#: [id number] : 1945 Acct:[id number] Age/Sex: 76 / M Date of Service: 07/26/21 Loc: ED Accession Number: [id number] ?? Procedure: XR lumbar spine 2-3V Ordering Provider: Bossman Purdy D.O. PROCEDURE:? XR LUMBAR SPINE 2-3V ? INDICATIONS:? lumbar pain after fall ? TECHNIQUE:? 3 views of the lumbar spine were acquired.? ? COMPARISON:? [facility], SPINE LUMB 2 OR 3VW, 10/17/2015, 13:34. ? FINDINGS:? These images demonstrate extensive thoracolumbar fixation changes.? The hardware construct is not significantly changed in appearance from October 2015 exam.? There is no evidence of hardware failure or other acute complicating hardware feature.? There is no fracture identified radiographically.? There is no listhesis or other new malalignment. ? IMPRESSION:? No acute finding demonstrated radiographically. ? ? Dictated by: Teja Sena M.D. on 07/26/2021 at 21:42 ? ? Approved by: Teja Sena M.D. on 07/26/2021 at 21:47?? [facility] Narrative Medical decision making narrative: Head CT shows no signs of skull fracture nor intracranial hemorrhage. Lumbar spine x-ray shows no signs of fracture. The abrasion on the forehead needs no intervention here in the emergency department of the topical antibiotic ointment. No further workup needed in the emergency department. He will continue all his medications as directed. He was given return precautions and follow-up instructions. He expressed understanding agreement. Discharge Plan Departure Patient Disposition: Home Clinical Impression: Forehead contusion, Lower back pain Instructions: How to Prevent Falls Activity Restrictions/Additional Instructions: Continue to take all of your medications as directed. Keep all of your scheduled medical appointments. Return to the emergency department for any new or worsening symptoms. Prescriptions: No Action albuterol sulfate [Ventolin HFA] 90 MCG/PUFF HFA aerosol inhaler 2 puff INH Q6HP PRN (Reason: Shortness Of Breath) Qty: 0 0RF lisinopril 5 MG tablet 5 mg PO BEDTIME Qty: 0 0RF polyethylene glycol 3350 [Miralax] 119 GM powder 17 gm PO QDAYP PRN (Reason: Constipation) Qty: 0 0RF glimepiride 1 MG tablet 1 mg PO BIDCC Qty: 0 0RF Label Comments: 0900 1700 furosemide 40 mg tablet 40 mg PO BID 0RF atorvastatin 40 mg tablet 1 tab PO BEDTIME 0RF propranolol 60 mg tablet 1 tab PO TID 0RF Label Comments: 0630 1200 2230 pantoprazole 20 mg tablet,delayed release (DR/EC) 20 mg PO QAM 0RF doxazosin 8 mg tablet 8 mg PO 0630 0RF aspirin 81 mg Tablet,Delayed Release (Dr/Ec) 81 mg PO 0630 0RF acetaminophen 500 mg Capsule 2 cap PO TID 0RF multivitamin Tablet 1 tab PO QAM 0RF nitroglycerin 0.4 mg Tablet, Sublingual 0.4 mg SUBLINGUAL Q5-15M PRN (Reason: Chest Pain) 0RF docusate sodium 100 mg Capsule 100 mg PO QAM 0RF cholecalciferol (vitamin D3) [Vitamin D3] 1,000 unit Capsule 1,000 unit PO QAM 0RF Qvar RediHaler 80 mcg/actuation Hfa Aerosol Breath Activated 2 puff Inhalation BID PRN (Reason: Shortness Of Breath) 0RF allopurinol 100 mg tablet 100 mg PO QAM 0RF oxycodone 5 mg tablet 5 mg PO Q6HR 0RF Label Comments: TAKE 2 TABS AT 6 AM FOR BACK PAIN THEN 1 TAB EVERY 3 HOURS UNTIL BEDTIME- pt takes scheduled q6hr. Rx Instructions: 01/26/1800/000 duloxetine 60 mg Capsule,Delayed Release(Dr/Ec) 60 mg PO BEDTIME 0RF diltiazem HCl 30 mg Tablet 30 mg PO Q6H Qty: 120 0RF warfarin 5 mg tablet 5 mg PO DAILY Qty: 30 0RF levothyroxine 100 mcg tablet 300 mcg PO QAM 0RF gabapentin 100 mg capsule 100 mg PO TID Qty: 90 0RF oxybutynin chloride 5 mg tablet 1 tab PO BEDTIME Qty: 0 0RF Label Comments: Referrals: Otto Jarrell MD [Primary Care Provider] -
[2021-07-26 22:10] VITALS: BP 114/56; PULSE 50; RESP 20; O2SAT 96
== END 2021-07-26 22:11 | disposition home or self-care (01) ==
PROVIDERS: Emergency Provider Emergency Medicine; PCP Internal Medicine
DX: S00.83XA Contusion of other part of head, initial encounter (principal); M54.50 Low back pain, unspecified; Z88.5 Allergy status to narcotic agent; Z88.8 Allergy status to other drugs, medicaments and biological substances; Z88.6 Allergy status to analgesic agent; Z87.891 Personal history of nicotine dependence; W18.09XA Striking against other object with subsequent fall, initial encounter; Y93.01 Activity, walking, marching and hiking; Y92.009 Unspecified place in unspecified non-institutional (private) residence as the place of occurrence of the external cause; Z79.01 Long term (current) use of anticoagulants
CPT/HCPCS: 70450; 72100; 99284

== ENCOUNTER 2021-07-30 14:10 | Emergency (ER) | payer OTHER, SELFPAY ==
[2018-06-15 04:12] VITALS: PULSE 75; RESP 30; O2SAT 96
[2021-07-24 09:31] VITALS: BMI 35.9
[2021-07-30] VITALS (36 sets, daily range): BP systolic 73–132; BP diastolic 39–80; PULSE 0–185; RESP 20–35; TEMP 35.7–36.7; O2SAT 92–98; BMI 38.0
--- NOTE | 2021-07-30 15:01 | ED.CHESTPAIN ---
HPI - Chest Pain <Elaine Purdy, DO - Last Filed: 07/31/21 07:19> General Chief Complaint: Chest Pain Stated Complaint: Feels like he's having a heart attack Time Seen by Provider: 07/30/21 14:28 Source: patient and family Mode of arrival: Wheelchair Limitations: no limitations History of Present Illness HPI narrative: Patient is a 76-year-old male. Within the past week head admission here to the hospital for palpitations and lower extremity swelling. He is found to be in atrial flutter. Was diuresed. Was discharged home on Eliquis. He was seen here in the emergency department later on the day when he was discharged after having a mechanical fall. Head CT was performed. He did have a contusion to his forehead. He returns to the emergency department today because he states that he feels like his Lasix is not working. He feels like his abdomen is distended. He feels like he is having lower extremity edema. His seems to think that the edema is not necessarily worse than what it has been. Patient states he generally just does not feel very well. His thinks that he is been somewhat confused. He has developed black eyes. He denies chest pain. Related Data Home Medications Medication Instructions Recorded Confirmed albuterol sulfate 90 mcg/actuation 2 puff INH Q6HP PRN #0 puff 05/20/13 07/23/21 aerosol inhaler (Ventolin HFA) lisinopril 5 mg tablet 5 mg PO BEDTIME #0 tab 05/20/13 07/23/21 polyethylene glycol 3350 17 17 gm PO QDAYP PRN #0 05/20/13 07/23/21 gram/dose oral powder (Miralax) glimepiride 1 mg tablet 1 mg PO BIDCC #0 09/05/17 07/23/21 acetaminophen 500 mg capsule 2 cap PO TID 06/07/18 07/23/21 aspirin 81 mg tablet,delayed 81 mg PO 0630 06/07/18 07/23/21 release atorvastatin 40 mg tablet 1 tab PO BEDTIME 06/07/18 07/23/21 beclomethasone dipropionate 80 2 puff INHALATION BID PRN 06/07/18 07/23/21 mcg/actuation HFA breath activated aerosol (Qvar RediHaler) cholecalciferol (vitamin D3) 25 1,000 unit PO QAM 06/07/18 07/23/21 mcg (1,000 unit) capsule (Vitamin D3) docusate sodium 100 mg capsule 100 mg PO QAM 06/07/18 07/23/21 doxazosin 8 mg tablet 8 mg PO 0630 06/07/18 07/23/21 furosemide 40 mg tablet 40 mg PO BID 06/07/18 07/23/21 multivitamin 1 tab PO QAM 06/07/18 07/23/21 nitroglycerin 0.4 mg sublingual 0.4 mg SUBLINGUAL Q5-15M PRN 06/07/18 07/23/21 tablet pantoprazole 20 mg tablet,delayed 20 mg PO QAM 06/07/18 07/23/21 release propranolol 60 mg tablet 1 tab PO TID 06/07/18 07/23/21 levothyroxine 100 mcg tablet 300 mcg PO QAM 07/20/18 07/23/21 allopurinol 100 mg tablet 100 mg PO QAM 07/23/21 07/23/21 duloxetine 60 mg capsule,delayed 60 mg PO BEDTIME 07/23/21 07/23/21 release oxycodone 5 mg tablet 5 mg PO Q6HR 07/23/21 07/23/21 Previous Rx's Medication Instructions Recorded gabapentin 100 mg capsule 100 mg PO TID #90 cap 07/23/18 oxybutynin chloride 5 mg tablet 1 tab PO BEDTIME #0 tab 07/23/18 diltiazem HCl 30 mg tablet 30 mg PO Q6H #120 tab 07/26/21 warfarin 5 mg tablet 5 mg PO DAILY #30 tab 07/26/21 Allergies Allergy/AdvReac Type Severity Reaction Status Date / Time fentanyl [FENTANYL] Allergy Severe HIVES, Verified 07/30/21 14:19 ITCHING iodine [IODINE] Allergy Severe RASH - Verified 07/30/21 14:19 TOPICAL AND IV CONTRAST shellfish derived Allergy Severe Abdominal Verified 07/30/21 14:19 [SHELLFISH DERIVED] Pain cyclobenzaprine Allergy Intermediate ITCHING Verified 07/30/21 14:19 [CYCLOBENZAPRINE] diclofenac [DICLOFENAC] Allergy Intermediate ITCHING Verified 07/30/21 14:19 methadone [METHADONE] Allergy Intermediate ITCHING Verified 07/30/21 14:19 hydromorphone [HYDROMORPHONE] Allergy Mild ITCHING Verified 07/30/21 14:19 hydroxyzine [HYDROXYZINE] Allergy Mild FEVER, Verified 07/30/21 14:19 SWEATS ibuprofen [IBUPROFEN] Allergy Unknown Verified 07/30/21 14:19 aspirin [ASPIRIN] AdvReac Severe STOMACH Verified 07/30/21 14:19 PAIN & HIVE W/325MG, CAN TAKE 81 MG solifenacin [From [facility]] AdvReac Unknown INCREASE Verified 07/30/21 14:19 PVR AND URINARY SX RACHEL AdvReac Unknown DOES NOT Uncoded 11/25/17 12:09 WORK Review of Systems <Elaine Purdy DO - Last Filed: 07/31/21 07:19> Constitutional Constitutional: Denies fever(s) and Denies headache(s) Eyes Eyes: Reports other (Bruising around his eyes) ENT Ears, Nose, Mouth, and Throat: Denies headache(s) Cardiovascular Cardiovascular: Reports as per HPI and Reports system reviewed and no additional complaints, except as documented Respiratory Respiratory: Reports as per HPI and Reports system reviewed and no additional complaints, except as documented Gastrointestinal Gastrointestinal: Reports as per HPI and Reports system reviewed and no additional complaints, except as documented Genitourinary Comments: Decreased urine output Musculoskeletal Musculoskeletal: Reports system reviewed and no additional complaints, except as documented Integumentary/Breasts Skin/Breast: Reports as per HPI Comments: Bruising under his eyes Neurologic Neurologic: Reports confusion and Denies headache(s) Psychiatric Psychiatric: Reports system reviewed and no additional complaints, except as documented and Reports confusion Endocrine Endocrine: Reports system reviewed and no additional complaints, except as documented Hematologic/Lymphatic On Anticoagulants: Yes Allergic/Immunologic Allergic/Immunologic: Reports system reviewed and no additional complaints, except as documented Patient History <Elaine Purdy DO - Last Filed: 07/31/21 07:19> Medical History Anemia Atrial fibrillation CAD (coronary artery disease), [place] coronary artery Cognitive impairment, mild, so stated Constipation COPD (chronic obstructive pulmonary disease) Diabetes mellitus Diastolic CHF Essential tremor GERD (gastroesophageal reflux disease) Gout HLD (hyperlipidemia) HTN (hypertension) Low back pain Surgical History H/O abdominal surgery H/O arthroscopic knee surgery H/O rotator cuff surgery History of back surgery Family History (Updated 07/23/21 @ 22:59 by HUMPHREY Lopez) Mother Diabetes mellitus Cancer Father Diabetes mellitus Cancer Social History household members: spouse Smoking Status: Former smoker alcohol intake: never Smoking Status: Former smoker alcohol intake frequency: holidays/special occasions only Substance Use Type: does not use Exam <DO Adelso Silvestre Last Filed: 07/31/21 07:19> Initial Vital Signs Initial Vital Signs: Vital Signs Temperature 96.2 F L 07/30/21 14:19 Pulse Rate 46 L 07/30/21 14:19 Respiratory Rate 35 H 07/30/21 14:19 Pulse Oximetry 98 07/30/21 14:19 Const General: comfortable, well developed and No acute distress Limitations: mental status not altered HENMT Head: raccoon eyes Ears: hearing grossly normal bilaterally Mouth: oral mucosae normal Eyes Pupils: PERRL Chest Chest: normal inspection of the chest and No tenderness Resp Effort & Inspection: normal respiratory effort Auscultation: clear to auscultation bilaterally Cardio Rate: bradycardic Rhythm: regular rhythm Pulses: radial pulses present GI Inspection: distended Palpation: soft and tender (Diffuse) Back/Spine/Pelvis Back: normal to inspection Skin Other: Bruising under both his eyes, contusion on his right forehead Neuro General: patient alert, patient awake, patient oriented x3 and moves all extremities Cognition: normal cognition Speech: speech normal Extrem General: capillary refill normal and edema Psych Appearance: grossly normal and well kempt <Za You DO - Last Filed: 07/31/21 03:25> Initial Vital Signs Initial Vital Signs: Vital Signs Temperature 96.2 F L 07/30/21 14:19 Pulse Rate 46 L 07/30/21 14:19 Respiratory Rate 35 H 07/30/21 14:19 Pulse Oximetry 98 07/30/21 14:19 Scores <DO Adelso Silvestre Last Filed: 07/31/21 07:19> GCS [place] coma scale eye opening: Spontaneous [place] coma scale verbal response: Orientated [place] coma scale motor response: Obey commands [place] coma scale total score: 15 <Za You DO - Last Filed: 07/31/21 03:25> GCS [place] coma scale total score: 15 Course <Elaine Rajwinder DO - Last Filed: 07/31/21 07:19> Orders Ordered: Discontinued Medications Acetaminophen (Acetaminophen 325 Mg Tablet) 650 mg PO NOW ONE Stop: 07/30/21 23:10 Last Admin: 07/30/21 23:47 Dose: 650 mg Documented by: YUE Albuterol (Albuterol 2.5 Mg/3 Ml Neb (Adult)) 5 mg INH NOW ONE Stop: 07/30/21 17:41 Last Admin: 07/30/21 19:40 Dose: 5 mg Documented by: CHARISSE Apixaban (Apixaban 5 Mg Tablet) 5 mg PO NOW ONE Stop: 07/30/21 23:01 Last Admin: 07/30/21 23:48 Dose: 5 mg Documented by: YUE Dextrose (Dextrose 50 % In Water 25 Gm/50 Ml Syringe) 25 gm IV NOW ONE Stop: 07/30/21 17:37 Last Admin: 07/30/21 18:40 Dose: 25 gm Documented by: CATE Furosemide (Furosemide 100 Mg/10 Ml Vial) 60 mg IV NOW ONE Stop: 07/30/21 17:37 Last Admin: 07/30/21 18:38 Dose: 60 mg Documented by: CATE Sodium Chloride (Normal Saline 0.9%) 1,000 mls @ 100 mls/hr IV CONT LUIS FELIPE Last Infusion: 07/31/21 01:42 Dose: 0 mls/hr Documented by: Admin: 07/30/21 19:38 Dose: 100 mls/hr Documented by: YUE Sodium Chloride (Normal Saline 0.9%) 500 mls @ 1,000 mls/hr IV BOLUS ONE Stop: 07/30/21 20:36 Last Infusion: 07/30/21 20:37 Dose: 0 mls/hr Documented by: Admin: 07/30/21 20:09 Dose: 1,000 mls/hr Documented by: YUE Insulin Human Regular (Insulin Regular 100 Unit/Ml 3 Ml Vial) 10 unit IV NOW ONE Stop: 07/30/21 17:37 Last Admin: 07/30/21 18:44 Dose: 10 unit Documented by: CATE Cosigned by: BAKARI Oxycodone HCl (Oxycodone Ir 5 Mg Tablet) 5 mg PO NOW ONE Stop: 07/30/21 19:34 Last Admin: 07/30/21 19:36 Dose: 5 mg Documented by: YUE Oxycodone HCl (Oxycodone Ir 5 Mg Tablet) 5 mg PO NOW ONE Stop: 07/30/21 23:10 Last Admin: 07/30/21 23:47 Dose: 5 mg Documented by: YUE Sodium Polystyrene Sulfonate (Sodium Polystyrene Sulfon/Sorb 15 Gm/60 Ml Cup) 15 gm PO NOW ONE Stop: 07/30/21 17:40 Last Admin: 07/30/21 18:44 Dose: 15 gm Documented by: CATE Vital Signs Vital signs: Vital Signs - 8 hr 07/30/21 23:20 07/30/21 23:30 07/30/21 23:40 Pulse Rate 76 75 75 Respiratory Rate 26 H 22 Blood Pressure 132/74 126/60 Pulse Oximetry 97 96 97 07/31/21 00:00 07/31/21 00:30 07/31/21 01:00 Pulse Rate 107 H 106 H 87 Respiratory Rate 25 H 22 24 Blood Pressure 131/60 134/69 Pulse Oximetry 93 98 95 07/31/21 01:30 Pulse Rate 90 Respiratory Rate 24 Blood Pressure Pulse Oximetry 95 <Za You, - Last Filed: 07/31/21 03:25> Orders Ordered: Discontinued Medications Acetaminophen (Acetaminophen 325 Mg Tablet) 650 mg PO NOW ONE Stop: 07/30/21 23:10 Last Admin: 07/30/21 23:47 Dose: 650 mg Documented by: YUE Albuterol (Albuterol 2.5 Mg/3 Ml Neb (Adult)) 5 mg INH NOW ONE Stop: 07/30/21 17:41 Last Admin: 07/30/21 19:40 Dose: 5 mg Documented by: CHARISSE Apixaban (Apixaban 5 Mg Tablet) 5 mg PO NOW ONE Stop: 07/30/21 23:01 Last Admin: 07/30/21 23:48 Dose: 5 mg Documented by: YUE Dextrose (Dextrose 50 % In Water 25 Gm/50 Ml Syringe) 25 gm IV NOW ONE Stop: 07/30/21 17:37 Last Admin: 07/30/21 18:40 Dose: 25 gm Documented by: CATE Furosemide (Furosemide 100 Mg/10 Ml Vial) 60 mg IV NOW ONE Stop: 07/30/21 17:37 Last Admin: 07/30/21 18:38 Dose: 60 mg Documented by: CATE Sodium Chloride (Normal Saline 0.9%) 1,000 mls @ 100 mls/hr IV CONT LUIS FELIPE Last Infusion: 07/31/21 01:42 Dose: 0 mls/hr Documented by: Admin: 07/30/21 19:38 Dose: 100 mls/hr Documented by: YUE Sodium Chloride (Normal Saline 0.9%) 500 mls @ 1,000 mls/hr IV BOLUS ONE Stop: 07/30/21 20:36 Last Infusion: 07/30/21 20:37 Dose: 0 mls/hr Documented by: Admin: 07/30/21 20:09 Dose: 1,000 mls/hr Documented by: YUE Insulin Human Regular (Insulin Regular 100 Unit/Ml 3 Ml Vial) 10 unit IV NOW ONE Stop: 07/30/21 17:37 Last Admin: 07/30/21 18:44 Dose: 10 unit Documented by: CATE Cosigned by: BAKARI Oxycodone HCl (Oxycodone Ir 5 Mg Tablet) 5 mg PO NOW ONE Stop: 07/30/21 19:34 Last Admin: 07/30/21 19:36 Dose: 5 mg Documented by: YUE Oxycodone HCl (Oxycodone Ir 5 Mg Tablet) 5 mg PO NOW ONE Stop: 07/30/21 23:10 Last Admin: 07/30/21 23:47 Dose: 5 mg Documented by: YUE Sodium Polystyrene Sulfonate (Sodium Polystyrene Sulfon/Sorb 15 Gm/60 Ml Cup) 15 gm PO NOW ONE Stop: 07/30/21 17:40 Last Admin: 07/30/21 18:44 Dose: 15 gm Documented by: CATE Vital Signs Vital signs: Vital Signs - 8 hr 07/30/21 23:20 07/30/21 23:30 07/30/21 23:40 Pulse Rate 76 75 75 Respiratory Rate 26 H 22 Blood Pressure 132/74 126/60 Pulse Oximetry 97 96 97 07/31/21 00:00 07/31/21 00:30 07/31/21 01:00 Pulse Rate 107 H 106 H 87 Respiratory Rate 25 H 22 24 Blood Pressure 131/60 134/69 Pulse Oximetry 93 98 95 07/31/21 01:30 Pulse Rate 90 Respiratory Rate 24 Blood Pressure Pulse Oximetry 95 MDM - Chest Pain <Elaine Purdy DO - Last Filed: 07/31/21 07:19> Medical Records Data Attestation: I reviewed the patient's medical records. Lab Data Attestation: I reviewed the patient's lab results. Result diagrams: 07/30/21 21:00 07/30/21 21:00 Labs: Lab Results 07/30/21 07/30/21 07/30/21 Range/Units 15:50 15:50 15:50 WBC 8.3 (4.5-11.0) X10^3/uL RBC 2.80 L (4.5-5.9) X10^6/uL Hgb 8.8 L (13.5-17.5) g/dL Hct 26.3 L (41-53) % MCV 94.2 (80-100) fL MCH 31.3 (26-34) PG MCHC 33.3 (30-36) % RDW 15.5 H (11.6-14.8) % Plt Count 161 (150-400) X10^3/uL Neut % (Auto) 74.1 (50-75) % Lymph % (Auto) 12.4 L (25-40) % [place] % (Auto) 10.7 (3-14) % Eos % (Auto) 2.2 (2-4) % Baso % (Auto) 0.6 (0-2) % Neut # (Auto) 6100 (6914-0900) /uL Lymph # (Auto) 1000 L (1926-3591) /uL [place] # (Auto) 900 (0-900) /uL Eos # (Auto) 200 (0-450) /uL Baso # (Auto) 0 (0-100) /uL PT 23.3 H (10.1-12.7) SECONDS INR 2.1 H (0.9-1.3) APTT 39 H (26.4-36.2) SECONDS Sodium 130 L (137-145) mmol/L Potassium 5.9 H D (3.4-5.1) mmol/L Chloride 96 L (98-107) mmol/L Carbon Dioxide 24 (22-32) mmol/L BUN 81 H (9-20) mg/dL Creatinine 4.29 H (0.66-1.25) mg/dL Estimated GFR 13.5 L (>60) mL/min BUN/Creatinine Ratio 18.9 (6-22) Glucose 168 H (80-110) mg/dL Lactate (0.7-2.1) mmol/L Calcium 8.5 (8.4-10.2) mg/dL Magnesium 1.7 (1.6-2.3) mg/dL Total Bilirubin 0.7 (0.2-1.3) mg/dL AST 20 (17-59) IU/L ALT 15 (<50) IU/L Alkaline Phosphatase 41 (38-126) U/L Total Creatine Kinase 35 L (55-170) U/L CK-MB (CK-2) TNP CK-MB (CK-2) Rel Index TNP Troponin I < 0.012 (0.01-0.034) ng/mL NT-Pro-B Natriuret Pep 877 H (<450) pg/mL Total Protein 6.6 (6.3-8.2) g/dL Albumin 3.7 (3.5-5.0) g/dL Globulin 2.9 (1.7-4.1) g/dL Albumin/Globulin Ratio 1.3 (1.0-2.8) Lipase 11 L (23-300) U/L TSH (0.47-4.68) uIU/mL Urine Color Urine Appearance Urine pH (4.5-8.0) Ur Specific [place] (1.000-1.035) Urine Protein (Negative) Urine Glucose (UA) (Negative) g/dL Urine Ketones (NEGATIVE) Urine Occult Blood (Negative) Urine Nitrate (Negative) Urine Bilirubin (NEGATIVE) Urine Urobilinogen (0.2) E.U./dL Ur Leukocyte Esterase (NEGATIVE) Urine RBC (0-5/HPF) Urine WBC (0-5/HPF) Ur Squamous Epith Cells (0-5/HPF) Amorphous Sediment Urine Bacteria (None) Urine Mucus (Negative) Ur Culture Indicated? Ur Random Sodium (30-90) mmol/L Urine Creatinine mg/dL SARS-CoV-2 (PCR) (Negative) 07/30/21 07/30/21 07/30/21 Range/Units 15:50 15:50 16:45 WBC (4.5-11.0) X10^3/uL RBC (4.5-5.9) X10^6/uL Hgb (13.5-17.5) g/dL Hct (41-53) % MCV (80-100) fL MCH (26-34) PG MCHC (30-36) % RDW (11.6-14.8) % Plt Count (150-400) X10^3/uL Neut % (Auto) (50-75) % Lymph % (Auto) (25-40) % [place] % (Auto) (3-14) % Eos % (Auto) (2-4) % Baso % (Auto) (0-2) % Neut # (Auto) (4469-3072) /uL Lymph # (Auto) (2995-4529) /uL [place] # (Auto) (0-900) /uL Eos # (Auto) (0-450) /uL Baso # (Auto) (0-100) /uL PT (10.1-12.7) SECONDS INR (0.9-1.3) APTT (26.4-36.2) SECONDS Sodium (137-145) mmol/L Potassium (3.4-5.1) mmol/L Chloride (98-107) mmol/L Carbon Dioxide (22-32) mmol/L BUN (9-20) mg/dL Creatinine (0.66-1.25) mg/dL Estimated GFR (>60) mL/min BUN/Creatinine Ratio (6-22) Glucose (80-110) mg/dL Lactate 3.2 H (0.7-2.1) mmol/L Calcium (8.4-10.2) mg/dL Magnesium (1.6-2.3) mg/dL Total Bilirubin (0.2-1.3) mg/dL AST (17-59) IU/L ALT (<50) IU/L Alkaline Phosphatase (38-126) U/L Total Creatine Kinase (55-170) U/L CK-MB (CK-2) CK-MB (CK-2) Rel Index Troponin I (0.01-0.034) ng/mL NT-Pro-B Natriuret Pep (<450) pg/mL Total Protein (6.3-8.2) g/dL Albumin (3.5-5.0) g/dL Globulin (1.7-4.1) g/dL Albumin/Globulin Ratio (1.0-2.8) Lipase (23-300) U/L TSH 3.98 (0.47-4.68) uIU/mL Urine Color Urine Appearance Urine pH (4.5-8.0) Ur Specific [place] (1.000-1.035) Urine Protein (Negative) Urine Glucose (UA) (Negative) g/dL Urine Ketones (NEGATIVE) Urine Occult Blood (Negative) Urine Nitrate (Negative) Urine Bilirubin (NEGATIVE) Urine Urobilinogen (0.2) E.U./dL Ur Leukocyte Esterase (NEGATIVE) Urine RBC (0-5/HPF) Urine WBC (0-5/HPF) Ur Squamous Epith Cells (0-5/HPF) Amorphous Sediment Urine Bacteria (None) Urine Mucus (Negative) Ur Culture Indicated? Ur Random Sodium 22 L (30-90) mmol/L Urine Creatinine 157.2 mg/dL SARS-CoV-2 (PCR) (Negative) 07/30/21 07/30/21 07/30/21 Range/Units 16:45 18:35 21:00 WBC (4.5-11.0) X10^3/uL RBC (4.5-5.9) X10^6/uL Hgb 9.3 L (13.5-17.5) g/dL Hct 27.5 L (41-53) % MCV (80-100) fL MCH (26-34) PG MCHC (30-36) % RDW (11.6-14.8) % Plt Count (150-400) X10^3/uL Neut % (Auto) (50-75) % Lymph % (Auto) (25-40) % [place] % (Auto) (3-14) % Eos % (Auto) (2-4) % Baso % (Auto) (0-2) % Neut # (Auto) (0675-2376) /uL Lymph # (Auto) (9584-5826) /uL [place] # (Auto) (0-900) /uL Eos # (Auto) (0-450) /uL Baso # (Auto) (0-100) /uL PT (10.1-12.7) SECONDS INR (0.9-1.3) APTT (26.4-36.2) SECONDS Sodium (137-145) mmol/L Potassium (3.4-5.1) mmol/L Chloride (98-107) mmol/L Carbon Dioxide (22-32) mmol/L BUN (9-20) mg/dL Creatinine (0.66-1.25) mg/dL Estimated GFR (>60) mL/min BUN/Creatinine Ratio (6-22) Glucose (80-110) mg/dL Lactate (0.7-2.1) mmol/L Calcium (8.4-10.2) mg/dL Magnesium (1.6-2.3) mg/dL Total Bilirubin (0.2-1.3) mg/dL AST (17-59) IU/L ALT (<50) IU/L Alkaline Phosphatase (38-126) U/L Total Creatine Kinase (55-170) U/L CK-MB (CK-2) CK-MB (CK-2) Rel Index Troponin I (0.01-0.034) ng/mL NT-Pro-B Natriuret Pep (<450) pg/mL Total Protein (6.3-8.2) g/dL Albumin (3.5-5.0) g/dL Globulin (1.7-4.1) g/dL Albumin/Globulin Ratio (1.0-2.8) Lipase (23-300) U/L TSH (0.47-4.68) uIU/mL Urine Color Yellow Urine Appearance Clear Urine pH 5.0 (4.5-8.0) Ur Specific [place] 1.020 (1.000-1.035) Urine Protein Negative (Negative) Urine Glucose (UA) Negative (Negative) g/dL Urine Ketones Negative (NEGATIVE) Urine Occult Blood Negative (Negative) Urine Nitrate Negative (Negative) Urine Bilirubin Negative (NEGATIVE) Urine Urobilinogen 0.2 (0.2) E.U./dL Ur Leukocyte Esterase Trace H (NEGATIVE) Urine RBC None seen (0-5/HPF) Urine WBC 1-5/hpf (0-5/HPF) Ur Squamous Epith Cells 1-5 /hpf (0-5/HPF) Amorphous Sediment 1+ Urine Bacteria Occasional (0-1) (None) Urine Mucus 1+ H (Negative) Ur Culture Indicated? Culture not indicate Ur Random Sodium (30-90) mmol/L Urine Creatinine mg/dL SARS-CoV-2 (PCR) Negative (Negative) 07/30/21 07/30/21 Range/Units 21:00 21:10 WBC (4.5-11.0) X10^3/uL RBC (4.5-5.9) X10^6/uL Hgb (13.5-17.5) g/dL Hct (41-53) % MCV (80-100) fL MCH (26-34) PG MCHC (30-36) % RDW (11.6-14.8) % Plt Count (150-400) X10^3/uL Neut % (Auto) (50-75) % Lymph % (Auto) (25-40) % [place] % (Auto) (3-14) % Eos % (Auto) (2-4) % Baso % (Auto) (0-2) % Neut # (Auto) (4446-2882) /uL Lymph # (Auto) (9277-9818) /uL [place] # (Auto) (0-900) /uL Eos # (Auto) (0-450) /uL Baso # (Auto) (0-100) /uL PT (10.1-12.7) SECONDS INR (0.9-1.3) APTT (26.4-36.2) SECONDS Sodium 132 L (137-145) mmol/L Potassium 5.0 (3.4-5.1) mmol/L Chloride 97 L (98-107) mmol/L Carbon Dioxide 26 (22-32) mmol/L BUN 83 H (9-20) mg/dL Creatinine 3.90 H (0.66-1.25) mg/dL Estimated GFR 15.1 L (>60) mL/min BUN/Creatinine Ratio 21.3 (6-22) Glucose 116 H (80-110) mg/dL Lactate 1.6 (0.7-2.1) mmol/L Calcium 8.5 (8.4-10.2) mg/dL Magnesium (1.6-2.3) mg/dL Total Bilirubin (0.2-1.3) mg/dL AST (17-59) IU/L ALT (<50) IU/L Alkaline Phosphatase (38-126) U/L Total Creatine Kinase 37 L (55-170) U/L CK-MB (CK-2) TNP CK-MB (CK-2) Rel Index TNP Troponin I < 0.012 (0.01-0.034) ng/mL NT-Pro-B Natriuret Pep (<450) pg/mL Total Protein (6.3-8.2) g/dL Albumin (3.5-5.0) g/dL Globulin (1.7-4.1) g/dL Albumin/Globulin Ratio (1.0-2.8) Lipase (23-300) U/L TSH (0.47-4.68) uIU/mL Urine Color Urine Appearance Urine pH (4.5-8.0) Ur Specific [place] (1.000-1.035) Urine Protein (Negative) Urine Glucose (UA) (Negative) g/dL Urine Ketones (NEGATIVE) Urine Occult Blood (Negative) Urine Nitrate (Negative) Urine Bilirubin (NEGATIVE) Urine Urobilinogen (0.2) E.U./dL Ur Leukocyte Esterase (NEGATIVE) Urine RBC (0-5/HPF) Urine WBC (0-5/HPF) Ur Squamous Epith Cells (0-5/HPF) Amorphous Sediment Urine Bacteria (None) Urine Mucus (Negative) Ur Culture Indicated? Ur Random Sodium (30-90) mmol/L Urine Creatinine mg/dL SARS-CoV-2 (PCR) (Negative) Point of Care Testing Glucose POC 150 Imaging Data Chest x-ray: Radiologist's Impression: [address] [address] XRay Report Signed Patient: Elaine Denton MR#: [id number] : 1945 Acct:[id number] Age/Sex: 76 / M Date of Service: 07/30/21 Loc: ED Accession Number: [id number] ?? Procedure: XR chest 1V Ordering Provider: Elaine Purdy D.O. PROCEDURE:? XR CHEST 1V ? INDICATIONS:? SOB ? TECHNIQUE:? One view of the chest was acquired.? ? COMPARISON:? [facility], , XR CHEST 1V, 07/23/2021, 16:41. ? FINDINGS:? ? Surgical changes and devices:? Hernandez rods ? Lungs and pleura:? Patient body habitus and projection preclude evaluation of the lungs for focal infiltrates.? No pleural effusions or pneumothorax.? ? Mediastinum:? Mediastinal contours appear normal.? Cardiomegaly. ? Bones and chest wall:? No suspicious bony lesions.? Overlying soft tissues appear unremarkable.? ? IMPRESSION:? Suboptimal imaging.? Cardiomegaly.? Consider PA and lateral chest versus chest CT. ? ? Dictated by: Imtiaz Rapp M.D. on 07/30/2021 at 15:48 ? ? Approved by: Imtiaz Rapp M.D. on 07/30/2021 at 15:50? CT scan - head: Radiologist's Impression: [address] [address] [address] Scan Report Signed Patient: Elaine Denton MR#: [id number] : 1945 Acct:[id number] Age/Sex: 76 / M Date of Service: 07/30/21 Loc: ED Accession Number: [id number] ?? Procedure: CT head/brain wo con Ordering Provider: Elaine Purdy D.O. PROCEDURE:? CT HEAD/BRAIN WO CON ? INDICATIONS:? confusion ? TECHNIQUE:? Noncontrast 4.5 mm thick angled axial sections acquired from the foramen magnum to the vertex, with coronal and sagittal reformats.? For radiation dose reduction, the following was used:? automated exposure control, adjustment of mA and/or kV according to patient size.? ? COMPARISON:? [facility], CT, CT HEAD/BRAIN WO CON, 07/26/2021, 20:16. ? FINDINGS:? Image quality:? Excellent.? ? CSF spaces:? Basal cisterns are patent.? No extra-axial fluid collections.? The ventricles are symmetric in size and shape.? ? Brain:? No intracranial bleeds or masses.? There is cerebral volume loss for age, with resultant ventricular and sulcal prominence.? There are periventricular and deep white matter chronic small vessel ischemic changes.? There is intracranial internal carotid artery atherosclerosis.? ? Skull and face:? Calvarium and visualized facial bones appear intact, without suspicious lesions.? ? Sinuses:? Visualized sinuses and mastoids are clear.? ? IMPRESSION:? Age-related volume loss.? No evidence of acute stroke, hemorrhage, or mass. ? ? ? Dictated by: Imtiaz Rapp M.D. on 07/30/2021 at 15:24 ? ? Approved by: Imtiaz Rapp M.D. on 07/30/2021 at 15:25?? Reference echocardiogram: Radiologist's Impression: [address] [address] Echocardiography Report Signed Patient: Elaine Denton MR#: [id number] : 1945 Acct:[id number] Age/Sex: 76 / M Date of Service: 07/23/21 Loc: 207-1 Accession Number: [id number] ?? Procedure: EC echo doppler complete Ordering Provider: Callie Hyde D.O. ? [facility] +---------+? [facility]? +---------+ : ? :? [address] [place] [address] ? : ? : : ? :? [place], [place] ? : ? : : ? :? [address] ? : ? : : ? : ? Phone: [phone]? : ? : +---------[phone]? [phone]? +---------+ ? Echocardiogram Report + + :Name: ELAINE DENTON? ? ? Study Date: 07/24/2021? Height: 73 in? : :[facility] ? ? ReadingLocation:? Weight: 280 lb : : ? Gender: Male? BSA: 2.5 m2? ? : :: 1945 ? Age: 76 yrs ? BP: 139/73 mmHg: :Reason For Study: Atrial flutter ? : :? Performed By: Blayne Dupont ? : :Referring: CALLIE HYDE? : + + Interpretation Summary The left ventricle is normal in size. The ejection fraction is estimated to be 60-65%. There has been no significant change in LVEF since the previous exam. ? The right ventricle is mildly dilated. Right ventricular systolic function is at the lower limits of normal. ? The aortic valve is moderately calcified. There is mildly reduced leaflet mobility. No significant aortic stenosis. ? The IVC is dilated (diameter is greater than 2.1 cm) yet it collapses greater than 50% with a sniff. This suggests a right atrial pressure of 8 mm Hg. ? Lipomatous hypertrophy of the interatrial septum is noted. It was seen in the previous study as well. ? Procedure: ? A two-dimensional transthoracic echocardiogram with color flow and Doppler was performed. Comparison is made with the echocardiogram of 06/08/2018. Fair image quality. The heart rate ranged between 64 - 86 bpm during the study. Baseline significant artifacts. Left Ventricle: ? The left ventricle is normal in size. Proximal septal thickening is noted. There is no echo evidence for significant left ventricular outflow tract obstruction. There is no thrombus. The ejection fraction is estimated to be 60-65%. There has been no significant change since the previous exam. Septal motion is consistent with conduction abnormality. E/E' med: 9.2. Right Ventricle: ? The right ventricle is mildly dilated. Right ventricular systolic function is at the lower limits of normal. Atria: ? The left atrial size is normal. The right atrium is mildly dilated. There is no Doppler evidence for an interatrial shunt. Lipomatous hypertrophy of the interatrial septum is noted. It was seen in the previous study as well. ? Mitral Valve: ? There is a flat closure plane of the the mitral valve leaflets. There is mild mitral annular calcification. There is trace mitral regurgitation. Aortic Valve: ? The aortic valve is trileaflet. The aortic valve is moderately calcified. There is mildly reduced leaflet mobility. There is no hemodynamically significant valvular aortic stenosis. There is trace aortic regurgitation. Tricuspid Valve: ? The tricuspid valve is normal. There is trace tricuspid regurgitation. The right ventricular systolic pressure is estimated to be at least 29 mmHg based on an estimated right atrial pressure of 8 mm Hg. Pulmonic Valve: ? The pulmonic valve leaflets are thin and pliable; valve motion is normal. There is a trace or physiologic amount of pulmonic regurgitation. Great Vessels: ? The aortic root is normal size. The ascending aorta is normal in size. The aortic arch is normal in size. The IVC is dilated (diameter is greater than 2.1 cm) yet it collapses greater than 50% with a sniff. This suggests a right atrial pressure of 8 mm Hg. Pericardium/ Pleura ? There is no pericardial effusion. There is an anterior echo-free space consistent with a fat pad. There is no pleural effusion. ? MMode/2D Measurements & Calculations LVIDd: 4.6 cm? LVOT diam: 2.3 cm LVIDs: 2.5 cm? Ao root diam: 3.4 cm FS: 46.4 % ? asc Aorta Diam: 3.5 cm IVSd: 1.1 cm ? Ao Arch Diam (Prox Trans): 3.1 cm LVPWd: 0.89 cm LV estes. diameter/BSA (cm/m^2): 1.9 LV sys. diameter/BSA (cm/m^2): 0.99 ? LA A2 area: 19.4 cm2 ? RA long axis: 6.9 cm LA A4 area: 23.3 cm2 ? RA area: 23.3 cm2 LA length (vol): 6.3 cm? RA vol: 67.2 ml LA vol: 60.7 ml? RA : 27.1 ml/m2 LA vol index: 24.5 ml/m2 ? IVC diam: 2.5 cm ? TAPSE: 1.7 cm ? Doppler Measurements & Calculations Ao V2 max: 174.6 cm/sec ? LVOT Max Cristóbal: 95.1 cm/sec Ao V2 mean: 119.1 cm/sec? LV V1 max P.6 mmHg Ao max P.2 mmHg? LV V1 VTI: 18.5 cm Ao mean P.4 mmHg? MERON(I,D): 2.2 cm2 Ao V2 VTI: 33.3 cm? MERON(V,D): 2.2 cm2 ? sev ratio: 0.56 ? MERON indexed to BSA (cm^2/m^2): 0.90 ? MV E max cristóbal: 95.2 cm/sec ? TR max cristóbal: 230.9 cm/sec MV A max cristóbal: 30.7 cm/sec ? TR max P.3 mmHg MV E/A: 3.1 ? PA V2 max: 89.0 cm/sec Med Peak E' Cristóbal: 10.3 cm/sec? ? ? PA V2 mean: 60.0 cm/sec E/E' med: 9.2 ? PA mean P.6 mmHg Lat Peak E' Cristóbal: 13.9 cm/sec? ? ? PA pr(Accel): 17.3 mmHg E/E' lat: 6.8 E/e' average: 8.0 MV dec time: 0.15 sec ? SV(LVOT): 74.4 ml ? Reading Physician:11:45 AM ECG Data Attestation: I personally reviewed and interpreted this ECG as follows: MDM Narrative Medical decision making narrative: Initially concerned about potential urinary retention is the patient states that he has not urinated very much over the past 24 hours. Was somewhat difficult to obtain a bladder scan given his body habitus. Chen catheter was placed with return of only approximately 200 cc of urine. Return show any anemia . Comparison of prior labs from July 26 show a hemoglobin of 10.2 and hematocrit of 29.2. Today it is 8.8/26.3. He also has a new onset acute renal failure with a creatinine above 4. Repeat labs from July 26 show a creatinine of 1.06 and GFR greater than 60. His potassium is also elevated today. He has an unchanged EKG today. Does show what appears to be a flutter. Blood pressure also has systolic between 95 and 110. This is also not unusual for him given review of his last admission here to the hospital. He is retaining fluid. He does have lower extremity swelling. He also has abdominal swelling as well. Given his confusion and the fact that he is on Eliquis head CT was obtained which shows no signs of acute pathology. The bruising around his eyes in the contusion is forehead is not new. This is from the mechanical fall a couple days ago. The echocardiogram included this note is for reference purposes. Was not obtained during this visit. Patient FeNA indicates a pre renal source. His hyperkalemia was treated with insulin/glucose, albuterol and he was given Lasix. Despite his lower extremity edema I do have some concern about intravascular depletion given his suspected prerenal status so he was started on maintenance fluids. Patient does require higher level of care to include Nephrology and Cardiology. Attempting to find placement. Care turned over to Dr. You to continue with treatment and disposition. <Za You, DO - Last Filed: 07/31/21 03:25> Lab Data Labs: Lab Results 07/30/21 07/30/21 07/30/21 Range/Units 15:50 15:50 15:50 WBC 8.3 (4.5-11.0) X10^3/uL RBC 2.80 L (4.5-5.9) X10^6/uL Hgb 8.8 L (13.5-17.5) g/dL Hct 26.3 L (41-53) % MCV 94.2 (80-100) fL MCH 31.3 (26-34) PG MCHC 33.3 (30-36) % RDW 15.5 H (11.6-14.8) % Plt Count 161 (150-400) X10^3/uL Neut % (Auto) 74.1 (50-75) % Lymph % (Auto) 12.4 L (25-40) % [place] % (Auto) 10.7 (3-14) % Eos % (Auto) 2.2 (2-4) % Baso % (Auto) 0.6 (0-2) % Neut # (Auto) 6100 (7918-1205) /uL Lymph # (Auto) 1000 L (2114-2397) /uL [place] # (Auto) 900 (0-900) /uL Eos # (Auto) 200 (0-450) /uL Baso # (Auto) 0 (0-100) /uL PT 23.3 H (10.1-12.7) SECONDS INR 2.1 H (0.9-1.3) APTT 39 H (26.4-36.2) SECONDS Sodium 130 L (137-145) mmol/L Potassium 5.9 H D (3.4-5.1) mmol/L Chloride 96 L (98-107) mmol/L Carbon Dioxide 24 (22-32) mmol/L BUN 81 H (9-20) mg/dL Creatinine 4.29 H (0.66-1.25) mg/dL Estimated GFR 13.5 L (>60) mL/min BUN/Creatinine Ratio 18.9 (6-22) Glucose 168 H (80-110) mg/dL Lactate (0.7-2.1) mmol/L Calcium 8.5 (8.4-10.2) mg/dL Magnesium 1.7 (1.6-2.3) mg/dL Total Bilirubin 0.7 (0.2-1.3) mg/dL AST 20 (17-59) IU/L ALT 15 (<50) IU/L Alkaline Phosphatase 41 (38-126) U/L Total Creatine Kinase 35 L (55-170) U/L CK-MB (CK-2) TNP CK-MB (CK-2) Rel Index TNP Troponin I < 0.012 (0.01-0.034) ng/mL NT-Pro-B Natriuret Pep 877 H (<450) pg/mL Total Protein 6.6 (6.3-8.2) g/dL Albumin 3.7 (3.5-5.0) g/dL Globulin 2.9 (1.7-4.1) g/dL Albumin/Globulin Ratio 1.3 (1.0-2.8) Lipase 11 L (23-300) U/L TSH (0.47-4.68) uIU/mL Urine Color Urine Appearance Urine pH (4.5-8.0) Ur Specific [place] (1.000-1.035) Urine Protein (Negative) Urine Glucose (UA) (Negative) g/dL Urine Ketones (NEGATIVE) Urine Occult Blood (Negative) Urine Nitrate (Negative) Urine Bilirubin (NEGATIVE) Urine Urobilinogen (0.2) E.U./dL Ur Leukocyte Esterase (NEGATIVE) Urine RBC (0-5/HPF) Urine WBC (0-5/HPF) Ur Squamous Epith Cells (0-5/HPF) Amorphous Sediment Urine Bacteria (None) Urine Mucus (Negative) Ur Culture Indicated? Ur Random Sodium (30-90) mmol/L Urine Creatinine mg/dL SARS-CoV-2 (PCR) (Negative) 07/30/21 07/30/21 07/30/21 Range/Units 15:50 15:50 16:45 WBC (4.5-11.0) X10^3/uL RBC (4.5-5.9) X10^6/uL Hgb (13.5-17.5) g/dL Hct (41-53) % MCV (80-100) fL MCH (26-34) PG MCHC (30-36) % RDW (11.6-14.8) % Plt Count (150-400) X10^3/uL Neut % (Auto) (50-75) % Lymph % (Auto) (25-40) % [place] % (Auto) (3-14) % Eos % (Auto) (2-4) % Baso % (Auto) (0-2) % Neut # (Auto) (7879-9058) /uL Lymph # (Auto) (4006-1935) /uL [place] # (Auto) (0-900) /uL Eos # (Auto) (0-450) /uL Baso # (Auto) (0-100) /uL PT (10.1-12.7) SECONDS INR (0.9-1.3) APTT (26.4-36.2) SECONDS Sodium (137-145) mmol/L Potassium (3.4-5.1) mmol/L Chloride (98-107) mmol/L Carbon Dioxide (22-32) mmol/L BUN (9-20) mg/dL Creatinine (0.66-1.25) mg/dL Estimated GFR (>60) mL/min BUN/Creatinine Ratio (6-22) Glucose (80-110) mg/dL Lactate 3.2 H (0.7-2.1) mmol/L Calcium (8.4-10.2) mg/dL Magnesium (1.6-2.3) mg/dL Total Bilirubin (0.2-1.3) mg/dL AST (17-59) IU/L ALT (<50) IU/L Alkaline Phosphatase (38-126) U/L Total Creatine Kinase (55-170) U/L CK-MB (CK-2) CK-MB (CK-2) Rel Index Troponin I (0.01-0.034) ng/mL NT-Pro-B Natriuret Pep (<450) pg/mL Total Protein (6.3-8.2) g/dL Albumin (3.5-5.0) g/dL Globulin (1.7-4.1) g/dL Albumin/Globulin Ratio (1.0-2.8) Lipase (23-300) U/L TSH 3.98 (0.47-4.68) uIU/mL Urine Color Urine Appearance Urine pH (4.5-8.0) Ur Specific [place] (1.000-1.035) Urine Protein (Negative) Urine Glucose (UA) (Negative) g/dL Urine Ketones (NEGATIVE) Urine Occult Blood (Negative) Urine Nitrate (Negative) Urine Bilirubin (NEGATIVE) Urine Urobilinogen (0.2) E.U./dL Ur Leukocyte Esterase (NEGATIVE) Urine RBC (0-5/HPF) Urine WBC (0-5/HPF) Ur Squamous Epith Cells (0-5/HPF) Amorphous Sediment Urine Bacteria (None) Urine Mucus (Negative) Ur Culture Indicated? Ur Random Sodium 22 L (30-90) mmol/L Urine Creatinine 157.2 mg/dL SARS-CoV-2 (PCR) (Negative) 07/30/21 07/30/21 07/30/21 Range/Units 16:45 18:35 21:00 WBC (4.5-11.0) X10^3/uL RBC (4.5-5.9) X10^6/uL Hgb 9.3 L (13.5-17.5) g/dL Hct 27.5 L (41-53) % MCV (80-100) fL MCH (26-34) PG MCHC (30-36) % RDW (11.6-14.8) % Plt Count (150-400) X10^3/uL Neut % (Auto) (50-75) % Lymph % (Auto) (25-40) % [place] % (Auto) (3-14) % Eos % (Auto) (2-4) % Baso % (Auto) (0-2) % Neut # (Auto) (8757-2402) /uL Lymph # (Auto) (3150-4266) /uL [place] # (Auto) (0-900) /uL Eos # (Auto) (0-450) /uL Baso # (Auto) (0-100) /uL PT (10.1-12.7) SECONDS INR (0.9-1.3) APTT (26.4-36.2) SECONDS Sodium (137-145) mmol/L Potassium (3.4-5.1) mmol/L Chloride (98-107) mmol/L Carbon Dioxide (22-32) mmol/L BUN (9-20) mg/dL Creatinine (0.66-1.25) mg/dL Estimated GFR (>60) mL/min BUN/Creatinine Ratio (6-22) Glucose (80-110) mg/dL Lactate (0.7-2.1) mmol/L Calcium (8.4-10.2) mg/dL Magnesium (1.6-2.3) mg/dL Total Bilirubin (0.2-1.3) mg/dL AST (17-59) IU/L ALT (<50) IU/L Alkaline Phosphatase (38-126) U/L Total Creatine Kinase (55-170) U/L CK-MB (CK-2) CK-MB (CK-2) Rel Index Troponin I (0.01-0.034) ng/mL NT-Pro-B Natriuret Pep (<450) pg/mL Total Protein (6.3-8.2) g/dL Albumin (3.5-5.0) g/dL Globulin (1.7-4.1) g/dL Albumin/Globulin Ratio (1.0-2.8) Lipase (23-300) U/L TSH (0.47-4.68) uIU/mL Urine Color Yellow Urine Appearance Clear Urine pH 5.0 (4.5-8.0) Ur Specific [place] 1.020 (1.000-1.035) Urine Protein Negative (Negative) Urine Glucose (UA) Negative (Negative) g/dL Urine Ketones Negative (NEGATIVE) Urine Occult Blood Negative (Negative) Urine Nitrate Negative (Negative) Urine Bilirubin Negative (NEGATIVE) Urine Urobilinogen 0.2 (0.2) E.U./dL Ur Leukocyte Esterase Trace H (NEGATIVE) Urine RBC None seen (0-5/HPF) Urine WBC 1-5/hpf (0-5/HPF) Ur Squamous Epith Cells 1-5 /hpf (0-5/HPF) Amorphous Sediment 1+ Urine Bacteria Occasional (0-1) (None) Urine Mucus 1+ H (Negative) Ur Culture Indicated? Culture not indicate Ur Random Sodium (30-90) mmol/L Urine Creatinine mg/dL SARS-CoV-2 (PCR) Negative (Negative) 07/30/21 07/30/21 Range/Units 21:00 21:10 WBC (4.5-11.0) X10^3/uL RBC (4.5-5.9) X10^6/uL Hgb (13.5-17.5) g/dL Hct (41-53) % MCV (80-100) fL MCH (26-34) PG MCHC (30-36) % RDW (11.6-14.8) % Plt Count (150-400) X10^3/uL Neut % (Auto) (50-75) % Lymph % (Auto) (25-40) % [place] % (Auto) (3-14) % Eos % (Auto) (2-4) % Baso % (Auto) (0-2) % Neut # (Auto) (0039-3407) /uL Lymph # (Auto) (2740-9125) /uL [place] # (Auto) (0-900) /uL Eos # (Auto) (0-450) /uL Baso # (Auto) (0-100) /uL PT (10.1-12.7) SECONDS INR (0.9-1.3) APTT (26.4-36.2) SECONDS Sodium 132 L (137-145) mmol/L Potassium 5.0 (3.4-5.1) mmol/L Chloride 97 L (98-107) mmol/L Carbon Dioxide 26 (22-32) mmol/L BUN 83 H (9-20) mg/dL Creatinine 3.90 H (0.66-1.25) mg/dL Estimated GFR 15.1 L (>60) mL/min BUN/Creatinine Ratio 21.3 (6-22) Glucose 116 H (80-110) mg/dL Lactate 1.6 (0.7-2.1) mmol/L Calcium 8.5 (8.4-10.2) mg/dL Magnesium (1.6-2.3) mg/dL Total Bilirubin (0.2-1.3) mg/dL AST (17-59) IU/L ALT (<50) IU/L Alkaline Phosphatase (38-126) U/L Total Creatine Kinase 37 L (55-170) U/L CK-MB (CK-2) TNP CK-MB (CK-2) Rel Index TNP Troponin I < 0.012 (0.01-0.034) ng/mL NT-Pro-B Natriuret Pep (<450) pg/mL Total Protein (6.3-8.2) g/dL Albumin (3.5-5.0) g/dL Globulin (1.7-4.1) g/dL Albumin/Globulin Ratio (1.0-2.8) Lipase (23-300) U/L TSH (0.47-4.68) uIU/mL Urine Color Urine Appearance Urine pH (4.5-8.0) Ur Specific [place] (1.000-1.035) Urine Protein (Negative) Urine Glucose (UA) (Negative) g/dL Urine Ketones (NEGATIVE) Urine Occult Blood (Negative) Urine Nitrate (Negative) Urine Bilirubin (NEGATIVE) Urine Urobilinogen (0.2) E.U./dL Ur Leukocyte Esterase (NEGATIVE) Urine RBC (0-5/HPF) Urine WBC (0-5/HPF) Ur Squamous Epith Cells (0-5/HPF) Amorphous Sediment Urine Bacteria (None) Urine Mucus (Negative) Ur Culture Indicated? Ur Random Sodium (30-90) mmol/L Urine Creatinine mg/dL SARS-CoV-2 (PCR) (Negative) Point of Care Testing Glucose POC 150 ECG Data Interpretation: Atrial flutter with 4-1 block similar to previous EKG rate 49 MDM Narrative Medical decision making narrative: Initially concerned about potential urinary retention is the patient states that he has not urinated very much over the past 24 hours. Was somewhat difficult to obtain a bladder scan given his body habitus. Chen catheter was placed with return of only approximately 200 cc of urine. Return show any anemia . Comparison of prior labs from July 26 show a hemoglobin of 10.2 and hematocrit of 29.2. Today it is 8.8/26.3. He also has a new onset acute renal failure with a creatinine above 4. Repeat labs from July 26 show a creatinine of 1.06 and GFR greater than 60. His potassium is also elevated today. He has an unchanged EKG today. Does show what appears to be a flutter. Blood pressure also has systolic between 95 and 110. This is also not unusual for him given review of his last admission here to the hospital. He is retaining fluid. He does have lower extremity swelling. He also has abdominal swelling as well. Given his confusion and the fact that he is on Eliquis head CT was obtained which shows no signs of acute pathology. The bruising around his eyes in the contusion is forehead is not new. This is from the mechanical fall a couple days ago. The echocardiogram included this note is for reference purposes. Was not obtained during this visit. Patient FeNA indicates a pre renal source. His hyperkalemia was treated with insulin/glucose, albuterol and he was given Lasix. Despite his lower extremity edema I do have some concern about intravascular depletion given his suspected prerenal status so he was started on maintenance fluids. Patient does require higher level of care to include Nephrology and Cardiology. Attempting to find placement. Care turned over to Dr. You to continue with treatment and disposition. Avelino-received sign-out from Dr. Purdy. Seen and evaluated patient myself he overall appears well he is alert oriented x4. He does have new onset acute kidney injury, he is chronically on Lasix 40 mg twice a day however both he and his state that he is actually on 80 mg of Lasix twice a day which may be contributing to his new onset hypotension and acute kidney injury. His blood pressure does respond to small amounts of fluid he is given a 500 cc bolus which improved his blood pressure significantly from the 80s to the high 90s and low 100s. He continues on low fluids of 100 cc an hour. Repeat blood work does show improvement in creatinine and potassium, and lactate. 2100 Dr. Her, hospitalist at [facility] has been updated on patient's symptoms test results have Gustavo accepts patient Due to severe bed shortage many other hospitals have been pulled he has been placed on wait list. [facility] does not have Nephrology or level of care that is required to take care of this patient. Critical Care Time <Elaine Purdy, DO - Last Filed: 07/31/21 07:19> Critical Care Time Critical Care Time: Yes Total Critical Care Time: 45 Attestation: The high probability of a clinically significant, sudden or life threatening deterioration of the cardiovascular, , respiratory system(s) required my full and direct attention, intervention and personal management. The aggregate critical care time was 45 minutes. This time is in addition to time spent performing reported procedures but includes the following: [x] Data Review and interpretation [x] Patient assessment and monitoring of vital signs [x] Documentation [x] Medication orders and management Discharge Plan Departure Patient Disposition: [facility] Clinical Impression: Acute renal failure, Atrial flutter, Hyperkalemia, Anemia, Confusion Prescriptions: No Action albuterol sulfate [Ventolin HFA] 90 MCG/PUFF HFA aerosol inhaler 2 puff INH Q6HP PRN (Reason: Shortness Of Breath) Qty: 0 0RF lisinopril 5 MG tablet 5 mg PO BEDTIME Qty: 0 0RF polyethylene glycol 3350 [Miralax] 119 GM powder 17 gm PO QDAYP PRN (Reason: Constipation) Qty: 0 0RF glimepiride 1 MG tablet 1 mg PO BIDCC Qty: 0 0RF Label Comments: 0900 1700 furosemide 40 mg tablet 40 mg PO BID 0RF atorvastatin 40 mg tablet 1 tab PO BEDTIME 0RF propranolol 60 mg tablet 1 tab PO TID 0RF Label Comments: 0630 1200 2230 pantoprazole 20 mg tablet,delayed release (DR/EC) 20 mg PO QAM 0RF doxazosin 8 mg tablet 8 mg PO 0630 0RF aspirin 81 mg Tablet,Delayed Release (Dr/Ec) 81 mg PO 0630 0RF acetaminophen 500 mg Capsule 2 cap PO TID 0RF multivitamin Tablet 1 tab PO QAM 0RF nitroglycerin 0.4 mg Tablet, Sublingual 0.4 mg SUBLINGUAL Q5-15M PRN (Reason: Chest Pain) 0RF docusate sodium 100 mg Capsule 100 mg PO QAM 0RF cholecalciferol (vitamin D3) [Vitamin D3] 1,000 unit Capsule 1,000 unit PO QAM 0RF Qvar RediHaler 80 mcg/actuation Hfa Aerosol Breath Activated 2 puff Inhalation BID PRN (Reason: Shortness Of Breath) 0RF allopurinol 100 mg tablet 100 mg PO QAM 0RF oxycodone 5 mg tablet 5 mg PO Q6HR 0RF Label Comments: TAKE 2 TABS AT 6 AM FOR BACK PAIN THEN 1 TAB EVERY 3 HOURS UNTIL BEDTIME- pt takes scheduled q6hr. Rx Instructions: 01/26/1800/000 duloxetine 60 mg Capsule,Delayed Release(Dr/Ec) 60 mg PO BEDTIME 0RF diltiazem HCl 30 mg Tablet 30 mg PO Q6H Qty: 120 0RF warfarin 5 mg tablet 5 mg PO DAILY Qty: 30 0RF levothyroxine 100 mcg tablet 300 mcg PO QAM 0RF gabapentin 100 mg capsule 100 mg PO TID Qty: 90 0RF oxybutynin chloride 5 mg tablet 1 tab PO BEDTIME Qty: 0 0RF Label Comments: Referrals: Otto Jarrell MD [Primary Care Provider] -
--- NOTE | 2021-07-30 15:03 | DI.RAD.S_ITS ---
PROCEDURE: XR CHEST 1V INDICATIONS: SOB TECHNIQUE: One view of the chest was acquired. COMPARISON: [facility], CR, XR CHEST 1V, 07/23/2021, 16:41. FINDINGS: Surgical changes and devices: Hernandez rods Lungs and pleura: Patient body habitus and projection preclude evaluation of the lungs for focal infiltrates. No pleural effusions or pneumothorax. Mediastinum: Mediastinal contours appear normal. Cardiomegaly. Bones and chest wall: No suspicious bony lesions. Overlying soft tissues appear unremarkable. IMPRESSION: Suboptimal imaging. Cardiomegaly. Consider PA and lateral chest versus chest CT. Dictated by: Imtiaz Rapp M.D. on 07/30/2021 at 15:48 Approved by: Imtiaz Rapp M.D. on 07/30/2021 at 15:50
--- NOTE | 2021-07-30 15:03 | DI.CT.S_ITS ---
PROCEDURE: CT HEAD/BRAIN WO CON INDICATIONS: confusion TECHNIQUE: Noncontrast 4.5 mm thick angled axial sections acquired from the foramen magnum to the vertex, with coronal and sagittal reformats. For radiation dose reduction, the following was used: automated exposure control, adjustment of mA and/or kV according to patient size. COMPARISON: [facility], CT, CT HEAD/BRAIN WO CON, 07/26/2021, 20:16. FINDINGS: Image quality: Excellent. CSF spaces: Basal cisterns are patent. No extra-axial fluid collections. The ventricles are symmetric in size and shape. Brain: No intracranial bleeds or masses. There is cerebral volume loss for age, with resultant ventricular and sulcal prominence. There are periventricular and deep white matter chronic small vessel ischemic changes. There is intracranial internal carotid artery atherosclerosis. Skull and face: Calvarium and visualized facial bones appear intact, without suspicious lesions. Sinuses: Visualized sinuses and mastoids are clear. IMPRESSION: Age-related volume loss. No evidence of acute stroke, hemorrhage, or mass. Dictated by: Imtiaz Rapp M.D. on 07/30/2021 at 15:24 Approved by: Imtiaz Rapp M.D. on 07/30/2021 at 15:25
[2021-07-30 16:05] LABS: Add Manual Diff / Slide Review NO; Basophils Absolute Auto 0 /uL (0-100); Basophils Percent Auto 0.6 % (0-2); Eosinophils Absolute Auto 200 /uL (0-450); Eosinophils Percent Auto 2.2 % (2-4); Hematocrit 26.3 % (41-53); Hemoglobin 8.8 g/dL (13.5-17.5); Lymphocytes Absolute Auto 1000 /uL (1100-4500); Lymphocytes Percent Auto 12.4 % (25-40); Mean Corpuscular HGB Conc 33.3 % (30-36); Mean Corpuscular Hemoglobin 31.3 PG (26-34); Mean Corpuscular Volume 94.2 fL (80-100); Monocytes Absolute Auto 900 /uL (0-900); Monocytes Percent Auto 10.7 % (3-14); Neutrophils Absolute Auto 6100 /uL (1500-7000); Neutrophils Percent Auto 74.1 % (50-75); Platelet Count 161 X10^3/uL (150-400); Red Cell Distribution Width 15.5 % (11.6-14.8); White Blood Cell Count 8.3 X10^3/uL (4.5-11.0)
[2021-07-30 16:15] LABS: INR 2.1 (0.9-1.3); Prothrombin Time 23.3 SECONDS (10.1-12.7)
[2021-07-30 16:18] LABS: PTT Partial Thromboplastin Tim 39 SECONDS (26.4-36.2)
[2021-07-30 16:21] LABS: Alanine Aminotransferase 15 IU/L (<50); Albumin 3.7 g/dL (3.5-5.0); Albumin Globulin Ratio 1.3 (1.0-2.8); Alkaline Phosphatase 41 U/L (38-126); Aspartate Aminotransferase 20 IU/L (17-59); BUN Creatinine Ratio 18.9 (6-22); Bilirubin Total 0.7 mg/dL (0.2-1.3); Blood Urea Nitrogen 81 mg/dL (9-20); Calcium 8.5 mg/dL (8.4-10.2); Carbon Dioxide 24 mmol/L (22-32); Chloride 96 mmol/L (98-107); Creatine Kinase 35 U/L (55-170); Estimated Glomerular Filt Rate 13.5 mL/min (>60); Globulin 2.9 g/dL (1.7-4.1); Glucose 168 mg/dL (80-110); HEMOLYSIS < 15 (0-50); Lipase 11 U/L (23-300); Magnesium 1.7 mg/dL (1.6-2.3); Sodium 130 mmol/L (137-145); Total Protein 6.6 g/dL (6.3-8.2)
[2021-07-30 16:26] LABS: Potassium 5.9 mmol/L (3.4-5.1)
[2021-07-30 16:33] LABS: NT-proBNP (BNP-Adult 18+) 877 pg/mL (<450); Troponin I < 0.012 ng/mL (0.01-0.034)
--- NOTE | 2021-07-30 17:04 | PC.NURSE ---
Addendum entered by Mattie Nieves R.N. 07/30/21 19:45: late entry, dr. salamanca is aware of tian catheter. Original Note: placed tian catheter, mistakenly used iodine. removed tian cath, cleaned groin and penis well with soap and water, pt and his spouse states he gets a rash, placed new tian catheter, with 400ml of clear yellow urine.
[2021-07-30 17:05] LABS: Thyroid Stimulating Hormone 3.98 uIU/mL (0.47-4.68)
[2021-07-30 17:16] LABS: Appearance Urine UA CLEAR; Bilirubin Urine UA NEGATIVE (NEGATIVE); Color Urine UA YELLOW; Glucose Urine UA NEGATIVE (Negative); Ketones Urine UA NEGATIVE (NEGATIVE); Leukocyte Esterase Urine UA TRACE (NEGATIVE); Nitrite Urine UA NEGATIVE (Negative); Occult Blood Urine UA NEGATIVE (Negative); Protein Urine UA NEGATIVE (Negative); Urobilinogen Urine UA 0.2 E.U./dL (0.2)
[2021-07-30 17:25] LABS: Amorphous Sediment Urine 1+; Bacteria Urine Occasional (0-1); Mucus Urine 1+ (Negative); RBC Urine None Seen (0-5/HPF); Squamous Epithelial Cell Urine 1-5 /HPF (0-5/HPF); WBC Urine 1-5/HPF (0-5/HPF)
[2021-07-30 17:58] LABS: Creatinine Urine Random 157.2 mg/dL; Sodium Urine Random 22 mmol/L (30-90)
[2021-07-30] MEDS: FUROSEMIDE 100 MG/10 ML VIAL 60 MG IV (18:38)
[2021-07-30] MEDS: DEXTROSE 50 % IN WATER 25 GM/50 ML SYRINGE IV (18:40)
[2021-07-30] MEDS: SODIUM POLYSTYRENE SULFON/SORB 15 GM/60 ML CUP PO (18:44)
[2021-07-30] MEDS: INSULIN REGULAR 100 UNIT/ML 3 ML VIAL 10 UNIT IV (18:44)
[2021-07-30 19:18] LABS: COVID19 -Nasal RAPID Negative (Negative)
[2021-07-30] MEDS: OXYCODONE IR 5 MG TABLET PO ×2 (19:36→23:47)
[2021-07-30] MEDS: SODIUM CHLORIDE 0.9% 1,000 ML 100 ML IV (19:38)
[2021-07-30] MEDS: ALBUTEROL 2.5 MG/3 ML NEB (ADULT) 5 MG INH (19:40)
[2021-07-30] MEDS: SODIUM CHLORIDE 0.9% 500 ML 1000 ML IV (20:09)
[2021-07-30 21:07] LABS: Hematocrit 27.5 % (41-53); Hemoglobin 9.3 g/dL (13.5-17.5)
[2021-07-30 21:22] LABS: Lactate (Lactic Acid) 3.2 mmol/L (0.7-2.1)
[2021-07-30 21:23] LABS: BUN Creatinine Ratio 21.3 (6-22); Blood Urea Nitrogen 83 mg/dL (9-20); Calcium 8.5 mg/dL (8.4-10.2); Carbon Dioxide 26 mmol/L (22-32); Chloride 97 mmol/L (98-107); Creatine Kinase 37 U/L (55-170); Estimated Glomerular Filt Rate 15.1 mL/min (>60); Glucose 116 mg/dL (80-110); HEMOLYSIS < 15 (0-50); Sodium 132 mmol/L (137-145)
[2021-07-30 21:35] LABS: Troponin I < 0.012 ng/mL (0.01-0.034)
[2021-07-30 21:43] LABS: Lactate (Lactic Acid) 1.6 mmol/L (0.7-2.1)
[2021-07-30 23:11] LABS: Reflexed Lactate in 2 Hours Y
[2021-07-30] MEDS: ACETAMINOPHEN 325 MG TABLET 650 MG PO (23:47)
[2021-07-30] MEDS: APIXABAN 5 MG TABLET PO (23:48)
[2021-07-31] VITALS: BP 131/60; PULSE 107; RESP 25; O2SAT 93
[2021-07-31 00:30] VITALS: PULSE 106; RESP 22; O2SAT 98
[2021-07-31 01:00] VITALS: BP 134/69; PULSE 87; RESP 24; O2SAT 95
[2021-07-31 01:30] VITALS: PULSE 90; RESP 24; O2SAT 95
== END 2021-07-31 01:50 | disposition short-term general hospital (02) ==
PROVIDERS: Emergency Medicine; Emergency Provider Emergency Medicine; PCP Internal Medicine
DX: N19 Unspecified kidney failure (principal); I48.92 Unspecified atrial flutter; E87.5 Hyperkalemia; D64.9 Anemia, unspecified; R41.0 Disorientation, unspecified; Z20.822 Contact with and (suspected) exposure to COVID-19
CPT/HCPCS: 36415; 51702; 51798; 70450; 71045; 80048; 80053; 81001; 82550; 82570; 82962; 83605; 83690; 83735; 83880; 84300; 84443; 84484; 85014; 85018; 85025; 85610; 85730; 87086; 87635; 93005; 93010; 94640; 96361; 96374; 96375; 99285; 99291; C9803; J1940; J7613

== ENCOUNTER → 2021-09-12 09:53 | Outpatient (CLI) | payer OTHER, SELFPAY ==
[2018-06-15 04:12] VITALS: PULSE 75; RESP 30; O2SAT 96
[2021-07-24 09:31] VITALS: BMI 35.9
[2021-09-12 11:38] LABS: INR 4.3 (0.9-1.3); Prothrombin Time 50.1 SECONDS (10.1-12.7)
== END ==
PROVIDERS: PCP Internal Medicine; Referring Provider Internal Medicine; Visit Provider Internal Medicine
DX: I48.3 Typical atrial flutter (principal)
CPT/HCPCS: 36415; 85610

== ENCOUNTER → 2021-10-21 11:46 | Outpatient (CLI) | payer OTHER, SELFPAY ==
[2018-06-15 04:12] VITALS: PULSE 75; RESP 30; O2SAT 96
[2021-07-24 09:31] VITALS: BMI 35.9
[2021-10-21 16:33] LABS: COVID19 -Nasal RAPID Negative (Negative)
== END ==
PROVIDERS: PCP Internal Medicine; Visit Provider Family Medicine Sleep Medicine
DX: Z20.822 Contact with and (suspected) exposure to COVID-19 (principal)
CPT/HCPCS: 87635; C9803

== ENCOUNTER → 2021-10-22 10:04 | Outpatient (CLI) | payer OTHER, SELFPAY ==
[2018-06-15 04:12] VITALS: PULSE 75; RESP 30; O2SAT 96
[2021-07-24 09:31] VITALS: BMI 35.9
--- NOTE | 2021-10-23 11:48 | PM.TREADMILL ---
Cardiac Stress Test Report Referral & Results Indication: cad Rest ECG: nsr Procedure Note: abbey scan Impression: after abbey scan injection had minimal dyspnea, no chest discomfort, baseline ECG, no significant ST changes on ECG after lexiscan injection, rare pvc noted in recovery. no reversal agents needed. Please note: Actual ECG tracings can be found in the PACS system.
--- NOTE | 2021-10-23 18:36 | DI.NM.S_ITS ---
DATE OF SERVICE: 10/22/2021 PROCEDURE: Exercise pharmacological perfusion study. INDICATIONS: Diastolic heart failure, coronary artery disease with history of occluded right coronary artery, as well as OM stenting in September,, hypertension, hyperlipidemia and atrial flutter. RADIOPHARMACEUTICAL: 25.4 minute millicurie technetium-99m Myoview IV was injected at stress and 23.6 millicurie technetium-99m Myoview IV was injected at rest. CARDIAC STRESS: The patient underwent IV Lexiscan perfusion study under the supervision an attending staff using Lexiscan, as per protocol. The patient remained hemodynamically stable. Baseline blood pressure was 122/84. Baseline rhythm was sinus with sinus bradycardia, diffuse low-voltage complexes and underlying right bundle branch block. During stress, no convincing ischemic changes. Occasional PVCs. RAW DATA: There is increased subdiaphragmatic activity. There appears to be hiatal hernia. GATED STUDY: Stress LV ejection fraction reported to be 65 percent and resting 55 percent without any obvious wall motion abnormalities. Resting end-diastolic volume 155 mL. TID ratio 1.22, but it is a pharmacological perfusion study. Lung/heart ratio 0.74, which is abnormal, suggestive of elevated left ventricular filling pressure. MYOCARDIAL PERFUSION SCAN: There were no stress prone images. Stress supine and resting supine images were compared to each other. It appears to be that patient has predominantly fixed moderate-size severely decreased perfusion of base to mid inferolateral wall consistent with infarction. In addition to that, there is small size yulia-infarct ischemia of distal inferolateral wall, as well, along with mild reversibility in the distal anteroseptum without involving anterior wall or anterolateral wall. Overall ischemic burden appears to be small. CONCLUSION: This is an abnormal myocardial perfusion study consistent with moderate size infarction of base to mid inferolateral wall and mild inferior mild yulia-infarct ischemia in the distal inferolateral area, as well as distal anteroseptum. No significant perfusion defect of the left anterior descending or anterolateral wall. Left ventricular function is preserved. Elevated lung and heart ratio suggestive of elevated left ventricular filling pressure. Bossman Denton - SLY/yanci/[place]ha doc#: [id number]/job#: [id number] dd: 10/23/2021 17:28:00 dt: 10/23/2021 18:07:00 DICTATING MD/COPIES TO: Richard Kurtz MD COPIES MNE: MARIEL;
== END ==
PROVIDERS: PCP Internal Medicine; Referring Provider Internal Medicine Cardiovascular Disease; Visit Provider Internal Medicine Cardiovascular Disease
DX: R94.39 Abnormal result of other cardiovascular function study (principal); I50.32 Chronic diastolic (congestive) heart failure; I25.10 Atherosclerotic heart disease of native coronary artery without angina pectoris; I48.92 Unspecified atrial flutter; I10 Essential (primary) hypertension; E78.5 Hyperlipidemia, unspecified; Z95.5 Presence of coronary angioplasty implant and graft
CPT/HCPCS: 78452; 93017; A9502; J2785

== ENCOUNTER → 2021-12-11 10:43 | Outpatient (CLI) | payer OTHER, SELFPAY ==
[2018-06-15 04:12] VITALS: PULSE 75; RESP 30; O2SAT 96
[2021-07-24 09:31] VITALS: BMI 35.9
== END ==
LOC: WC 10:47
PROVIDERS: PCP Physician Assistant; Referring Provider Physician Assistant; Visit Provider Family Medicine
DX: L89.323 Pressure ulcer of left buttock, stage 3 (principal); E11.628 Type 2 diabetes mellitus with other skin complications; Z74.09 Other reduced mobility; Z79.01 Long term (current) use of anticoagulants; Z79.84 Long term (current) use of oral hypoglycemic drugs
CPT/HCPCS: 11042; 99204; 99212

== ENCOUNTER → 2021-12-19 15:22 | Outpatient (CLI) | payer OTHER, SELFPAY ==
[2018-06-15 04:12] VITALS: PULSE 75; RESP 30; O2SAT 96
[2021-07-24 09:31] VITALS: BMI 35.9
== END ==
PROVIDERS: PCP Physician Assistant; Referring Provider Physician Assistant; Visit Provider Family Medicine
DX: E11.9 Type 2 diabetes mellitus without complications (principal); Z87.2 Personal history of diseases of the skin and subcutaneous tissue; Z74.09 Other reduced mobility
CPT/HCPCS: 99212

== ENCOUNTER → 2021-12-26 15:35 | Outpatient (CLI) | payer OTHER, SELFPAY ==
[2018-06-15 04:12] VITALS: PULSE 75; RESP 30; O2SAT 96
[2021-07-24 09:31] VITALS: BMI 35.9
== END ==
PROVIDERS: PCP Physician Assistant; Referring Provider Physician Assistant; Visit Provider Family Medicine
DX: Z09 Encounter for follow-up examination after completed treatment for conditions other than malignant neoplasm (principal); E11.9 Type 2 diabetes mellitus without complications; G89.29 Other chronic pain; M54.59 Other low back pain; Z74.09 Other reduced mobility; Z87.2 Personal history of diseases of the skin and subcutaneous tissue
CPT/HCPCS: 99211; 99212

== ENCOUNTER → 2022-06-06 10:31 | Outpatient (CLI) | payer OTHER, SELFPAY ==
[2018-06-15 04:12] VITALS: PULSE 75; RESP 30; O2SAT 96
[2021-07-24 09:31] VITALS: BMI 35.9
--- NOTE | 2022-06-06 | DI.CT.S_ITS ---
PROCEDURE: CT HEAD/BRAIN WO CON INDICATIONS: Headache, TECHNIQUE: Noncontrast 4.5 mm thick angled axial sections acquired from the foramen magnum to the vertex, with coronal and sagittal reformats. For radiation dose reduction, the following was used: automated exposure control, adjustment of mA and/or kV according to patient size. COMPARISON: [facility], CT, HEAD WITHOUT CONTRAST, 09/11/2017, 11:58. [facility], CT, CT HEAD/BRAIN WO CON, 07/20/2018, 12:23. [facility], CT, CT HEAD/BRAIN WO CON, 07/26/2021, 20:16. [facility], CT, CT HEAD/BRAIN WO CON, 07/30/2021, 15:11. FINDINGS: Image quality: Mild streak artifact can be seen through the skull base. CSF spaces: Basal cisterns are patent. No extra-axial fluid collections. The ventricles are symmetric in size and shape. Brain: No intracranial bleeds or masses. There is cerebral volume loss for age, with resultant ventricular and sulcal prominence. There are periventricular and deep white matter chronic small vessel ischemic changes. There is intracranial internal carotid artery atherosclerosis. Skull and face: Calvarium and visualized facial bones appear intact, without suspicious lesions. Sinuses: Visualized sinuses and mastoids are clear. IMPRESSION: No acute intracranial hemorrhage is seen. No acute intracranial process is seen. Dictated by: Nikita Atkins M.D. on 06/06/2022 at 11:00 Approved by: Nikita Atkins M.D. on 06/06/2022 at 11:01
--- NOTE | 2022-06-06 | DI.RAD.S_ITS ---
PROCEDURE: XR ACUTE ABDOMEN SERIES INDICATIONS: left lower quadrant abdominal pain, constipation TECHNIQUE: One view chest and two views of the abdomen were acquired. COMPARISON: CR, XR LUMBAR SPINE 2-3V, 07/26/2021, 21:05. [facility] Claude Gardner, RF, THORACIC SPINE INTERIAMINAR, 03/29/2018, 10:35. CT, CT THORACIC SPINE WO CON, 01/20/2018, 11:05. FINDINGS: Surgical changes and devices: Thoracolumbar fixation rods are present. Hardware appears intact without evidence of hardware fracture. There is rightward scoliotic curvature. Clips are noted overlying the left upper abdomen. Chest: Lungs are clear. Heart size is normal. No pleural effusions. No pneumoperitoneum. Abdomen: Bowel gas pattern is nonobstructive. Moderate colonic stool. No suspicious calcifications. Visualized solid organ contours appear normal. Bones: No suspicious bony lesions. IMPRESSION: Moderate colonic stool without obstruction. Dictated by: Marcella Stevenson M.D. on 06/06/2022 at 14:49 Approved by: Marcella Stevenson M.D. on 06/06/2022 at 14:50
== END ==
PROVIDERS: PCP Physician Assistant; Referring Provider Physician Assistant; Visit Provider Physician Assistant
DX: R51.9 Headache, unspecified (principal); K59.00 Constipation, unspecified; R10.32 Left lower quadrant pain; G89.29 Other chronic pain
CPT/HCPCS: 70450; 74022

== ENCOUNTER → 2022-07-23 13:55 | Outpatient (CLI) | payer OTHER, SELFPAY ==
[2018-06-15 04:12] VITALS: PULSE 75; RESP 30; O2SAT 96
[2021-07-24 09:31] VITALS: BMI 35.9
--- NOTE | 2022-07-30 16:24 | DIAB.MNT ---
Initial Diabetes Medical Nutrition Therapy Assessment Name: Bossman Denton ([place]) Date: 07/23/22 Time: 2-330p Dx: Type II Diabetes Provider: Christine Boyle presents today for initial visit with , Kathy. +FH of DM with both parents, sister, and maternal grandmother. Endorses PMH of DM for 10 years. Reported hgA1c in February of 6.2% now up to 8.5% as of May. He is unclear why this value has increased. Over the summer ate a lot of fruit. Today he would like to know what a typical meal plan would look like. He has holiday eating questions, and wants to know more about foods to avoid and portions. [place] does all the cooking. h/o sacral ulcers. Denies current issue. Diet Recall: 10a; coffee x 2c with flavored creamer and 3-4oz tomato juice on side 11a-12p: 2c cold cereal with almond milk and half n half with 2.5 servings of fruit OR hot cereal x 1.5c OR occasionally egg sandwich on ww OR MOW +/- snack: nothing or dessert from meals on wheels (MOW) 6p: MOW: chicken with veggie and half cup rice OR tuna sandwich with tomato soup OR 1.5c pasta with sauce and sausage OR fish with veggie and half sweet potato OR kraft mac n cheese with ranch and chicken no veg Beverages; 64-70oz water with goal of 2000ml per day), 2c coffee Anthropometrics: Ht: 6' Wt: 266# Physical Activity: Back surgery history reported barrier. ADLs, occasional walk with dog, some heel raises and PT side steps Self-Monitoring Blood Glucose: Reports FBG could be 180-300mg/dl. Recent readings all elevated, most above 200mg/dL. Date Pre Post Pre Post Pre Post HS 07/17 206 2 220 3 240 07/20 214 07/21 168 07/22 07/23 198 Diabetes Medications: Metformin 1000mg BID Glipizide XL 2.5mg Pertinent Labs: 05/2022 hgA1c 8.5% per pt ; labs requested for review Past Medical History: (Last Reviewed 07/30/21 @ 19:44 by Bossman Purdy DO) Anemia Atrial fibrillation CAD (coronary artery disease), [place] coronary artery Cognitive impairment, mild, so stated Constipation COPD (chronic obstructive pulmonary disease) Diabetes mellitus Diastolic CHF Essential tremor GERD (gastroesophageal reflux disease) Gout middle finger on right hand HLD (hyperlipidemia) HTN (hypertension) Low back pain Nutrition Rx: Carbohydrates: Daily:165g Meal:45-60g Snack:15g Nutrition Diagnosis: - Excessive CHO intake r/t nutrition knowledge deficit aeb diet recall and pt report - Physical inactivity r/t limited by PMH aeb pt report Intervention: This participant was very receptive. Provided appropriate educational handouts. Discussed the following topics: Completed intake assessment. Discussed barriers to care. Plate Method, impact of macronutrients on blood sugar, meal timing, carbohydrate counting, pairing macronutrients and spreading out carbohydrates for better blood glucose management Holiday eating strategies Recommended servings for carbohydrates at meals and snacks Brainstormed appropriate meal plan based on food preferences Role of physical activity and following provider guidelines for safety, being creative about what activity he can do Created SMART goals for patient self-care and success. Goals: Play with coffee creamer to reduce carb intake Add protein to breakfast Reduce cereal and pasta portions Add more vegetables to dinner Consider safe exercise ideas Follow-up: SARAH KAMARA follow-up in 3-4 weeks Lily Benson RDN, ASAD Certified Diabetes Care and Sports Anchor P: [phone] Thank you for this referral
== END ==
PROVIDERS: PCP Physician Assistant; Referring Provider Physician Assistant; Visit Provider Physician Assistant
DX: E11.9 Type 2 diabetes mellitus without complications (principal); Z79.84 Long term (current) use of oral hypoglycemic drugs; Z71.3 Dietary counseling and surveillance
CPT/HCPCS: 97802

== ENCOUNTER → 2022-08-13 11:16 | Outpatient (CLI) | payer OTHER, SELFPAY ==
[2018-06-15 04:12] VITALS: PULSE 75; RESP 30; O2SAT 96
[2021-07-24 09:31] VITALS: BMI 35.9
--- NOTE | 2022-08-14 16:37 | DIAB.MNTFU ---
Follow-up Diabetes Medical Nutrition Therapy Assessment Name: Bossman Denton ([place]) Date: 08/13/22 Time: 2086-7202 Dx: Type II Diabetes [place] presents for follow-up with , Kathy. Endorses nutrition changes, however with current FBG consistently >180mg/dl. Seems he may benefit from additional Dm medication. plans to see PCP August 28. Encouraged them to bring BG log book and discuss options. States they are opposed to insulin at this time. Reviewed different medication options, including insulin. Encouraged them to discuss further with provider. May be able to try to increase glipizide as a trial. If BG not adequately treated, would rec consideration for insulin. Cost is a concern. States they have increased veggies at dinner. Veggies at dinner most nights of the week with salads, carrots and green beans. Endorses adding protein to breakfast with nuts. Switched from half n half to 2% milk. Reduced sweetened creamer in coffee. Anthropometrics: Ht: 6' Wt: 266# previous visit Physical Activity: Back surgery history reported barrier. ADLs and has tried to do more heel raises. Precontemplative stage of change for activity. Self-Monitoring Blood Glucose: Recent FBG 190-245mg/dl despite diet changes. Diabetes Medications: Metformin 1000mg BID Glipizide XL 2.5mg Pertinent Labs: 05/2022 hgA1c 8.5% Past Medical History: (Last Reviewed 07/30/21 @ 19:44 by Bossman Purdy DO) Anemia Atrial fibrillation CAD (coronary artery disease), [place] coronary artery Cognitive impairment, mild, so stated Constipation COPD (chronic obstructive pulmonary disease) Diabetes mellitus Diastolic CHF Essential tremor GERD (gastroesophageal reflux disease) Gout middle finger on right hand HLD (hyperlipidemia) HTN (hypertension) Low back pain Nutrition Rx: Carbohydrates: Daily:165g Meal:45-60g Snack:15g Nutrition Diagnosis: - Excessive CHO intake r/t nutrition knowledge deficit aeb diet recall and pt report- improved - Physical inactivity r/t limited by PMH aeb pt report Intervention: This participant was very receptive. Provided appropriate educational handouts. Discussed the following topics: Blood sugar review and trends. Potential for progression of DM and beta cell dysfunction Gluconeogenesis, potential for HS snack Types of DM medications: injections and oral Heart health nutrition: fats Carb portion review Snack ideas: list provided Physical activity options and barriers Created SMART goals for patient self-care and success. Goals: Play with coffee creamer to reduce carb intake- met Add protein to breakfast- met Reduce cereal and pasta portions- met Add more vegetables to dinner- met Consider safe exercise ideas - not interested at this time Try HS snack- new Check a few pc readings - new Discuss med options with PCP- new Follow-up: SARAH KAMARA follow-up in 4 weeks Lily Benson RDN, ASAD Certified Diabetes Care and [employer] Bo[employer] Plasma Etcher P: [phone] Thank you for this referral
== END ==
PROVIDERS: PCP Physician Assistant; Referring Provider Physician Assistant; Visit Provider Physician Assistant
DX: E11.9 Type 2 diabetes mellitus without complications (principal); Z79.84 Long term (current) use of oral hypoglycemic drugs; Z71.3 Dietary counseling and surveillance
CPT/HCPCS: 97803

== ENCOUNTER → 2022-09-08 11:00 | Outpatient (CLI) | payer OTHER, SELFPAY ==
[2018-06-15 04:12] VITALS: PULSE 75; RESP 30; O2SAT 96
[2021-07-24 09:31] VITALS: BMI 35.9
== END ==
PROVIDERS: PCP Physician Assistant; Referring Provider Physician Assistant; Visit Provider Surgery
DX: S40.812A Abrasion of left upper arm, initial encounter (principal); E11.628 Type 2 diabetes mellitus with other skin complications; Z79.01 Long term (current) use of anticoagulants
CPT/HCPCS: 97597; 99213

== ENCOUNTER → 2022-09-15 14:28 | Outpatient (CLI) | payer OTHER, SELFPAY ==
[2018-06-15 04:12] VITALS: PULSE 75; RESP 30; O2SAT 96
[2021-07-24 09:31] VITALS: BMI 35.9
== END ==
PROVIDERS: PCP Physician Assistant; Referring Provider Physician Assistant; Visit Provider Surgery
DX: S40.821A Blister (nonthermal) of right upper arm, initial encounter (principal); E11.628 Type 2 diabetes mellitus with other skin complications; Z79.01 Long term (current) use of anticoagulants
CPT/HCPCS: 17250; 99213

== ENCOUNTER → 2022-09-17 12:37 | Outpatient (CLI) | payer OTHER, SELFPAY ==
[2018-06-15 04:12] VITALS: PULSE 75; RESP 30; O2SAT 96
[2021-07-24 09:31] VITALS: BMI 35.9
--- NOTE | 2022-10-08 11:32 | DIAB.MNTFU ---
Follow-up Diabetes Medical Nutrition Therapy Assessment Name: Bossman Denton ([place]) Date: 09/17/22 Time: 1-2p Dx: Type II Diabetes [place] presents for follow-up DM visit today. Has increased glipizide to 5mg per day since 09/13 after PCP visit, which FBG have improved but are still above 150mg/dl (See SMBG below). Reports reduced CHO intake at dinner with more of a focus on big salads. Reported hot cereal high in CHO, sweetened and no added protein. Most dinners are in goal for CHO intake, though pasta nights may be high carb with portion. Recent fall in August resulted in wound care for arm. States he is healing well. Anthropometrics: Ht: 6' Wt: 277# last weight Physical Activity: Back surgery history reported barrier. Precontemplative stage of change for activity. Self-Monitoring Blood Glucose: Last visit FBG 190-245mg/dl despite diet changes. With increased glipizide, slightly improved FBG but still above target. Date Pre Post Pre Post Pre Post HS 09/11 198 09/12 153 09/13 265 09/14 211 09/15 173 09/16 195 09/17 205 Diabetes Medications: Metformin 1000mg BID Glipizide XL 5mg Pertinent Labs: 08/2022 hgA1c 10.2% 05/2022 hgA1c 8.5% Past Medical History: (Last Reviewed 07/30/21 @ 19:44 by Bossman Purdy DO) Anemia Atrial fibrillation CAD (coronary artery disease), [place] coronary artery Cognitive impairment, mild, so stated Constipation COPD (chronic obstructive pulmonary disease) Diabetes mellitus Diastolic CHF Essential tremor GERD (gastroesophageal reflux disease) Gout middle finger on right hand HLD (hyperlipidemia) HTN (hypertension) Low back pain Nutrition Rx: Carbohydrates: Daily:165g Meal:45-60g Snack:15g Nutrition Diagnosis: - Excessive CHO intake r/t breakfast option aeb diet recall- new - Inconsistent protein intake r/t limited intake earlier in the day and increased needs with wound healing aeb diet recall and pt report - Physical inactivity r/t limited by PMH and stage of change aeb pt report Intervention: This participant was very receptive. Provided appropriate educational handouts. Discussed the following topics: Blood sugar review and trends. Balancing CHO and protein Breakfast ideas Plan for if hyperglycemia continues, contact provider Carb portions and recs Created SMART goals for patient self-care and success. Goals: Try HS snack- not met Check a few pc readings - not met Discuss med options with PCP- met Contact PCP if BG continue consistently above 150mg/dl- new Keep plain oats to 3/4c and add nuts- new Measure pasta cooked- new Follow-up: SARAH KAMARA follow-up in 3-4 weeks Lily Benson RDN, ASAD Certified Diabetes Care and [employer] Salesperson P: [phone] Thank you for this referral
== END ==
PROVIDERS: PCP Physician Assistant; Referring Provider Physician Assistant; Visit Provider Physician Assistant
DX: E11.9 Type 2 diabetes mellitus without complications (principal); Z79.84 Long term (current) use of oral hypoglycemic drugs; Z71.3 Dietary counseling and surveillance
CPT/HCPCS: 97803

== ENCOUNTER → 2022-09-22 11:12 | Outpatient (CLI) | payer OTHER, SELFPAY ==
[2018-06-15 04:12] VITALS: PULSE 75; RESP 30; O2SAT 96
[2021-07-24 09:31] VITALS: BMI 35.9
== END ==
PROVIDERS: PCP Physician Assistant; Referring Provider Physician Assistant; Visit Provider Surgery
DX: E11.628 Type 2 diabetes mellitus with other skin complications (principal); S40.812D Abrasion of left upper arm, subsequent encounter; Z79.01 Long term (current) use of anticoagulants
CPT/HCPCS: 99212

== ENCOUNTER → 2022-10-29 10:21 | Outpatient (CLI) | payer OTHER, SELFPAY ==
[2018-06-15 04:12] VITALS: PULSE 75; RESP 30; O2SAT 96
[2021-07-24 09:31] VITALS: BMI 35.9
--- NOTE | 2022-11-11 16:29 | DIAB.MNTFU ---
Follow-up Diabetes Medical Nutrition Therapy Assessment Name: DentonBossman ([place]) Date: 10/29/22 Time:1035-1110a Dx: Type II Diabetes [place] presents for follow-up with his , Kathy. States he has been on higher dose of glipizide for one month now. Improved BG but still experiencing hyperglycemia (see SMBG for details). Reports diet recall moderate to low in carb. Brunch highest carb of the day, potentially excessive with Life cereal. Reports adding pro to breakfast more often, as discussed last visit. Has seen changes in warfarin related labs, but states they have not increased greens in diet. States he notices higher FBG when only having a salad at dinner. Potential gluconeogenesis? No HS snack. Diet Recall: L (brandon): sandwich OR 3/4 c cooked oats 1x/week OR 1 c Life cereal with fruit (1/2 banana, 3-4 berries, 1/4 c blueberries.? S: +/- 10 crackers + PB. D (6-7 pm): salad with veg and protein.? Anthropometrics: Ht: 6' Wt: no wt this visit; 277# last reported weight Physical Activity: Back surgery history reported barrier. Precontemplative stage of change for activity. May consider pedometer to track steps Self-Monitoring Blood Glucose: Slight improvement from last visit. Seems likely that [place] might benefit from HS insulin. He and Kathy would like to continue working with lifestyle and oral DM meds at this time to try and optimize BG. Encouraged them to continue to work with provider on oral meds. Can trial HS snack to see if helps with FBG. Otherwise, exercise is the other option, which [place] is not currently open to implementing. Date Pre Post Pre Post Pre Post HS 10/23 188 10/24 193 10/25 224 10/26 212 10/27 195 10/28 197 10/29 214 Diabetes Medications: Metformin 1000mg BID Glipizide XL 10mg Pertinent Labs: 08/2022 hgA1c 10.2% 05/2022 hgA1c 8.5% Past Medical History: (Last Reviewed 07/30/21 @ 19:44 by Bossman Purdy DO) Anemia Atrial fibrillation CAD (coronary artery disease), [place] coronary artery Cognitive impairment, mild, so stated Constipation COPD (chronic obstructive pulmonary disease) Diabetes mellitus Diastolic CHF Essential tremor GERD (gastroesophageal reflux disease) Gout middle finger on right hand HLD (hyperlipidemia) HTN (hypertension) Low back pain Nutrition Rx: Carbohydrates: Daily:165g Meal:45-60g Snack:15g Nutrition Diagnosis: - Excessive CHO intake r/t breakfast option aeb diet recall- improved/in progress - Inconsistent protein intake r/t limited intake earlier in the day and increased needs with wound healing aeb diet recall and pt report- improved - Physical inactivity r/t limited by PMH and stage of change aeb pt report- cont Intervention: This participant was very receptive. Provided appropriate educational handouts. Discussed the following topics: Blood sugar review and trends. Impact of insulin resistance vs insufficiencies. HS snack and gluconeogenesis potential Quick review of potential for HS insulin prn given slight improvement with double glipizide dose. Physical activity and tracking steps for setting goals for movement Created SMART goals for patient self-care and success. Goals: Contact PCP if BG continue consistently above 150mg/dl- met Keep plain oats to 3/4c and add nuts- met Measure pasta cooked- met Try 8oz milk for HS snack- new Look into pedometer0- new Follow-up: SARAH KAMARA follow-up in 3-4 weeks. [place] would likely benefit from starting HS insulin. He and Kathy would like to continue to try managing with oral DM meds and lifestyle. Encouraged them to update provider on BG results and plan prn. Lily Benson, SARAH, [facility] Certified Diabetes Care and Television Anchor P: [phone] Thank you for this referral
== END ==
PROVIDERS: PCP Physician Assistant; Referring Provider Physician Assistant; Visit Provider Physician Assistant
DX: E11.65 Type 2 diabetes mellitus with hyperglycemia (principal); Z71.3 Dietary counseling and surveillance; Z79.84 Long term (current) use of oral hypoglycemic drugs
CPT/HCPCS: 97803

== ENCOUNTER → 2022-12-03 12:49 | Outpatient (CLI) | payer OTHER, SELFPAY ==
[2018-06-15 04:12] VITALS: PULSE 75; RESP 30; O2SAT 96
[2021-07-24 09:31] VITALS: BMI 35.9
--- NOTE | 2022-12-05 14:31 | DIAB.FU ---
Follow-up Diabetes Education Assessment Name: BertinBossman ([place]) Date: 12/03/22 Time: 1-150p Dx: Type II Diabetes Provider: Micheline Boyle presents for follow-up DM visit with , Kathy. Blood sugars continue to be elevated. [place] states he would like to avoid insulin, though realizes he may need to consider. Plans to see PCP next week and ask for increase in glipizide. Last visit, doubled glipizide to 10mg with little improvement of FBG. [place] recently tripped at home trying to avoid his dog and has bruising under his eyes as a result. Encouraged him to discuss further with PCP. Mobility has been an ongoing concern for him. States recent HgA1c was 9.3%, above goal. Kathy brought a written log of his last few hgA1c values. Last year in November HgA1c of 7.6%. Asked [place] what he thought was different then and now in terms of lifestyle. States he may have been able to walk more. Continues to be conscious of carb intake. Tried HS snack with 8oz milk. Some morning BG were under 190mg/dl with HS snack. Stopped HS snack recently. Physical Activity: Now wearing a pedometer and endorses about 3000 steps per week (approx 430 steps per day). Interested in increasing this. Self-Monitoring Blood Glucose: All elevated FBG. Consistent with last visit with BG consistently above 190 most mornings. Date Pre Post Pre Post Pre Post HS 11/25 191 11/26 194 14 211 15 202 16 212 17 210 18 212 Diabetes Medications: Metformin 1000mg BID Glipizide XL 10mg Pertinent Labs: Per patient: 9.3% 11/2022 7.6% 11/2021 8.5% 05/2022 9.1% 08/2021 Past Medical History: (Last Reviewed 07/30/21 @ 19:44 by Bossman Purdy DO) Anemia Atrial fibrillation CAD (coronary artery disease), [place] coronary artery Cognitive impairment, mild, so stated Constipation COPD (chronic obstructive pulmonary disease) Diabetes mellitus Diastolic CHF Essential tremor GERD (gastroesophageal reflux disease) Gout middle finger on right hand HLD (hyperlipidemia) HTN (hypertension) Low back pain Intervention: This participant was very receptive. Provided appropriate educational handouts. Discussed the following topics: Recent blood sugar results and trends Medication management: potential for insulin HS given small changes with increased glipizide what HS insulin might look like: action of insulin, injection technique and supplies Encouraged discussion with PCP about med management Sharps disposal Review of general nutrition recommendations and current intake Safe physical activity plan and impact on blood sugars Created SMART goals for patient self-care and success. Goals: Try 8oz milk for HS snack- met Look into pedometer- met Set alarm for HS snack- new Aim for 600 steps safely per day- new Discuss med options with provider next week- new Follow-up: SARAH KAMARA follow-up in 3-4 weeks Lily Benson RDN, ASAD Certified Diabetes Care and Facing Grinder P: [phone] Thank you for this referral
== END ==
PROVIDERS: PCP Physician Assistant; Referring Provider Physician Assistant; Visit Provider Physician Assistant
DX: E11.9 Type 2 diabetes mellitus without complications (principal); Z79.84 Long term (current) use of oral hypoglycemic drugs; Z71.3 Dietary counseling and surveillance
CPT/HCPCS: G0108

== ENCOUNTER → 2023-01-21 12:54 | Outpatient (CLI) | payer MEDICARE, SELFPAY ==
[2018-06-15 04:12] VITALS: PULSE 75; RESP 30; O2SAT 96
[2021-07-24 09:31] VITALS: BMI 35.9
--- NOTE | 2023-02-05 10:45 | DIAB.FU ---
Addendum entered by Lily Benson 07/17/23 15:59: Also discussed hypoglycemia treatment Original Note: Follow-up Diabetes Education Assessment Name: Bossman Denton ([place]) Date: 01/21/23 Time: 110-140p Dx: Type II Diabetes [place] presents for Dm follow-up. Reports he has a referral for endo. Interested in CGM rx. Sees PCP in February + labs. Endorses sometimes improved FBG when he has dessert at night. Potential for decreased gluconeogenesis overnight with carbs in evening. FBG cont to be elevated. Continuous to overall be cautious with carb portions. Has historically been trying to avoid insulin. Given small improvements with increases glipizide, would likely benefit from additional DM medication. Physical Activity: using pedometer. Endorses 600-700 steps per day. trying to walk more with nice weather. Walks down driveway 1-2x per week. Self-Monitoring Blood Glucose: Recent FB, 174, 160, 184, 215, 199, 194 mg/dl. improved with less in the 200s since last visit, however all readings cont elevated. Diabetes Medications: Metformin 1000mg BID Glipizide XL 10mg Pertinent Labs: Per patient: 9.3% 11/2022 7.6% 11/2021 8.5% 05/2022 9.1% 08/2021 Past Medical History: (Last Reviewed 07/30/21 @ 19:44 by Bossman Purdy DO) Anemia Atrial fibrillation CAD (coronary artery disease), [place] coronary artery Cognitive impairment, mild, so stated Constipation COPD (chronic obstructive pulmonary disease) Diabetes mellitus Diastolic CHF Essential tremor GERD (gastroesophageal reflux disease) Gout middle finger on right hand HLD (hyperlipidemia) HTN (hypertension) Low back pain Intervention: This participant was very receptive. Provided appropriate educational handouts. Discussed the following topics: Recent blood sugar results and trends Medication management: different options oral vs injections, cost, action, pt preferences Insulin: answered questions addressed fears regarding insulin. Reviewed how pens work. If provider decides to go with insulin, he seems more prepared and accepting, again if needed. Review of general nutrition recommendations and current intake Physical activity plan and impact on blood sugars Impact of Hs snack on FBG CGM education, qualifiers for MCR coverage, benefits ADA BG goals and rationale Created SMART goals for patient self-care and success. Goals: Set alarm for HS snack- d/c Aim for 600 steps safely per day- met Discuss med options with provider next week- in progress Call endo for visit- new Keep up activity - new [place] days on BG log when more active- new Follow-up: SARAH KAMARA follow-up in JUN due to RD/ASAD leave. Will follow-up upon return. Encouraged endo for DM follow-up, discussion with PCP about med options prn, and other supporting resources in the interim. Lily Benson RDN, [facility] Certified Diabetes Care and Program Review Director P: [phone] Thank you for this referral
== END ==
PROVIDERS: PCP Physician Assistant; Referring Provider Physician Assistant; Visit Provider Physician Assistant
DX: E11.9 Type 2 diabetes mellitus without complications (principal); Z79.84 Long term (current) use of oral hypoglycemic drugs; Z71.3 Dietary counseling and surveillance
CPT/HCPCS: G0108

== ENCOUNTER 2023-03-04 07:50 | Day surgery (SDC) | payer OTHER, SELFPAY ==
[2018-06-15 04:12] VITALS: PULSE 75; RESP 30; O2SAT 96
[2021-07-24 09:31] VITALS: BMI 35.9
[2023-03-04 08:11] VITALS: BMI 34.2
[2023-03-04 08:21] VITALS: BP 134/83; PULSE 76; RESP 17; TEMP 36.2; O2SAT 94
--- NOTE | 2023-03-04 08:46 | PM.HP.1 ---
History of Present Illness History of Present Illness Date Patient Seen: 03/04/23 Chief complaint: EGD & Colonoscopy Narrative: Heme-positive stools with iron deficiency anemia on chronic Coumadin, now off for 5 days [facility] Medical History Anemia Atrial fibrillation CAD (coronary artery disease), [place] coronary artery Cognitive impairment, mild, so stated Constipation COPD (chronic obstructive pulmonary disease) Diabetes mellitus Diastolic CHF Essential tremor GERD (gastroesophageal reflux disease) Gout HLD (hyperlipidemia) HTN (hypertension) Low back pain Surgical History H/O abdominal surgery H/O arthroscopic knee surgery H/O rotator cuff surgery History of back surgery Family History (Updated 07/23/21 @ 22:59 by Tammy Goldsmith [facility] Mother Diabetes mellitus Cancer Father Diabetes mellitus Cancer Social History household members: spouse Smoking Status: Former smoker alcohol intake: never Meds Home Medications and Allergies Home Medications Medication Instructions Recorded Confirmed Type albuterol sulfate 90 mcg/actuation 2 puff INH Q6HP PRN Shortness Of 05/20/13 07/23/21 History aerosol inhaler (Ventolin HFA) Breath #0 puffs lisinopril 5 mg tablet 5 mg PO BEDTIME #0 tabs 05/20/13 07/23/21 History polyethylene glycol 3350 17 17 gm PO QDAYP PRN Constipation ##0 05/20/13 07/23/21 History gram/dose oral powder (Miralax) glimepiride 1 mg tablet 1 mg PO BIDCC ##0 09/05/17 07/23/21 History acetaminophen 500 mg capsule 2 cap PO TID 06/07/18 07/23/21 History aspirin 81 mg tablet,delayed 81 mg PO 0630 06/07/18 07/23/21 History release atorvastatin 40 mg tablet 1 tab PO BEDTIME 06/07/18 07/23/21 History beclomethasone dipropionate 80 2 puff inhalation BID PRN 06/07/18 07/23/21 History mcg/actuation HFA breath activated Shortness Of Breath aerosol (Qvar RediHaler) cholecalciferol (vitamin D3) 25 1,000 unit PO QAM 06/07/18 07/23/21 History mcg (1,000 unit) capsule (Vitamin D3) docusate sodium 100 mg capsule 100 mg PO QAM 06/07/18 07/23/21 History doxazosin 8 mg tablet 8 mg PO 0630 06/07/18 07/23/21 History furosemide 40 mg tablet 40 mg PO BID 06/07/18 07/23/21 History multivitamin 1 tab PO QAM 06/07/18 07/23/21 History nitroglycerin 0.4 mg sublingual 0.4 mg sublingual Q5-15M PRN Chest 06/07/18 07/23/21 History tablet Pain pantoprazole 20 mg tablet,delayed 20 mg PO QAM 06/07/18 07/23/21 History release propranolol 60 mg tablet 1 tab PO TID 06/07/18 07/23/21 History levothyroxine 100 mcg tablet 300 mcg PO QAM 07/20/18 07/23/21 History gabapentin 100 mg capsule 100 mg PO TID #90 caps 07/23/18 07/23/21 Rx oxybutynin chloride 5 mg tablet 1 tab PO BEDTIME #0 tabs 07/23/18 07/23/21 Rx allopurinol 100 mg tablet 100 mg PO QAM 07/23/21 07/23/21 History duloxetine 60 mg capsule,delayed 60 mg PO BEDTIME 07/23/21 07/23/21 History release oxycodone 5 mg tablet 5 mg PO Q6HR 07/23/21 07/23/21 History diltiazem HCl 30 mg tablet 30 mg PO Q6H #120 tabs 07/26/21 Rx warfarin 5 mg tablet 5 mg PO DAILY #30 tabs 07/26/21 Rx Allergies Allergy/AdvReac Type Severity Reaction Status Date / Time fentanyl [FENTANYL] Allergy Severe HIVES, Verified 07/30/21 14:19 ITCHING iodine [IODINE] Allergy Severe RASH - Verified 07/30/21 14:19 TOPICAL AND IV CONTRAST shellfish derived Allergy Severe Abdominal Verified 07/30/21 14:19 [SHELLFISH DERIVED] Pain cyclobenzaprine Allergy Intermediate ITCHING Verified 07/30/21 14:19 [CYCLOBENZAPRINE] diclofenac [DICLOFENAC] Allergy Intermediate ITCHING Verified 07/30/21 14:19 methadone [METHADONE] Allergy Intermediate ITCHING Verified 07/30/21 14:19 hydromorphone [HYDROMORPHONE] Allergy Mild ITCHING Verified 07/30/21 14:19 hydroxyzine [HYDROXYZINE] Allergy Mild FEVER, Verified 07/30/21 14:19 SWEATS ibuprofen [IBUPROFEN] Allergy Unknown Verified 07/30/21 14:19 aspirin [ASPIRIN] AdvReac Severe STOMACH Verified 07/30/21 14:19 PAIN & HIVE W/325MG, CAN TAKE 81 MG solifenacin [From [facility]] AdvReac Unknown INCREASE Verified 07/30/21 14:19 PVR AND URINARY SX RACHEL AdvReac Unknown DOES NOT Uncoded 11/25/17 12:09 WORK Exam Vital Signs (past 8 hours): - 03/04/23 08:21 Temperature 97.1 F L Pulse Rate 76 Respiratory Rate 17 Blood Pressure 134/83 Pulse Oximetry 94 Oxygen Delivery Method Room Air Oxygen Delivery Method Room Air Narrative Exam Narrative: Oropharynx free of lesions Chest clear to auscultation percussion Cardiac exam reveals no S3 or murmur Assessment & Plan Assessment & Plan narrative: Guaiac-positive stools with iron deficiency anemia while on Coumadin. Need for colonoscopy an EGD to search for a source. Risks, benefits, alternatives have been explained.
--- NOTE | 2023-03-04 08:47 | PM.OP.EC ---
Operative Date/Time/Diagnoses Date of procedure: 03/04/23 Pre-op diagnosis: See indication and findings Procedure & Clinicians Study performed: EGD and colonoscopy Indications: Iron deficiency anemia with guaiac-positive stools while on Coumadin Surgeon: Matilde Jones Procedure Notes Procedure in detail: After informed consent was obtained the patient was placed in left lateral decubitus position. The video upper scope was placed into the oropharynx and with the patient's help swallowed into the esophagus. The esophagus stomach and duodenum were carefully examined. Retroflexed view the GE junction was carefully examined. The scope was removed. The patient tolerated procedure well. The patient was then turned the colonoscope substituted. This was placed the rectum slowly advanced cecum. On slow withdrawal mucosa was carefully examined. The preparation was good except for the right colon where it was fair. The scope was removed. The patient tolerated procedure well. Blood loss none Complications none Findings EGD 1. Normal esophagus but with rather wide open GE junction. No Soto's present 2. Normal stomach with the exception of a few mild hematin flecks in the antrum. 3. Normal duodenal bulb and sweep Colonoscopy 1. Normal colonoscopy to cecum. Patient can restart Coumadin today. He should be in touch with Dr. Nuno about scheduling a small bowel PillCam
[2023-03-04 09:55] VITALS: BP 109/59; PULSE 61; RESP 18; TEMP 36.2; O2SAT 90
[2023-03-04 10:00] VITALS: BP 119/62; PULSE 61; RESP 19; O2SAT 96
[2023-03-04 10:05] VITALS: BP 104/63; PULSE 69; RESP 14; O2SAT 95
[2023-03-04 10:15] VITALS: BP 139/74; PULSE 66; RESP 13; O2SAT 99
== END 2023-03-04 10:38 | disposition home or self-care (01) ==
PROVIDERS: PCP Physician Assistant; Referring Provider Internal Medicine Gastroenterology; Visit Provider Internal Medicine Gastroenterology
PROC: 0DJ08ZZ Inspection of Upper Intestinal Tract, Via Natural or Artificial Opening Endoscopic (ICD-10-PCS; CPT 43235; principal; 2023-03-04 09:00)
PROC: 0DJD8ZZ Inspection of Lower Intestinal Tract, Via Natural or Artificial Opening Endoscopic (ICD-10-PCS; CPT 45378; 2023-03-04 09:00)
DX: D50.9 Iron deficiency anemia, unspecified (principal); R19.5 Other fecal abnormalities; Z79.01 Long term (current) use of anticoagulants; Z79.84 Long term (current) use of oral hypoglycemic drugs; Z79.899 Other long term (current) drug therapy
CPT/HCPCS: 44376; J2704

== ENCOUNTER → 2023-03-23 14:05 | Outpatient (CLI) | payer OTHER, SELFPAY ==
[2018-06-15 04:12] VITALS: PULSE 75; RESP 30; O2SAT 96
[2021-07-24 09:31] VITALS: BMI 35.9
--- NOTE | 2023-03-23 | DI.US.S_ITS ---
PROCEDURE: US ARTERIAL DUPLEX LE BI INDICATIONS: DECREASED PEDAL PULSES TECHNIQUE: Color and pulse Doppler interrogation was performed of both lower extremity arterial systems, with image documentation. COMPARISON: [facility], , ARTERIAL LOW.EXTREM.BILATERAL, 09/29/2014, 9:05. FINDINGS: Right lower extremity: Common femoral artery: 138 cm/sec, with biphasic flow. Deep femoral artery: 38 cm/sec, with biphasic flow. Proximal superficial femoral artery: 102 cm/sec, with biphasic flow. Mid superficial femoral artery: 112 cm/sec, with biphasic flow. Distal superficial femoral artery: 83 cm/sec, with biphasic flow. Popliteal artery: 47 cm/sec, with biphasic flow. Posterior tibial artery: Not well seen. Anterior tibial artery/dorsalis pedis: Not well seen Dill-scale imaging description: Limited study secondary to swelling and BMI. Nonvisualization of the runoff vessels. No stenosis noted from the common femoral through the popliteal. Left lower extremity: Common femoral artery: 168 cm/sec, with biphasic flow. Deep femoral artery: 73 cm/sec, with biphasic flow. Proximal superficial femoral artery: 113 cm/sec, with biphasic flow. Mid superficial femoral artery: 123 cm/sec, with biphasic flow. Distal superficial femoral artery: 95 cm/sec, with biphasic flow. Popliteal artery: 62 cm/sec, with biphasic flow. Posterior tibial artery: Not well seen Anterior tibial artery/dorsalis pedis: Not well seen Dill-scale imaging description: Limited study secondary to swelling and BMI. Nonvisualization of the runoff vessels. No stenosis noted from the common femoral through the popliteal. IMPRESSION: 1. Limited study secondary to lower extremity edema bilaterally and BMI. Unable to assess the runoff vessels. 2. No stenosis noted from the common femorals through the popliteals. Dictated by: Imtiaz Rapp M.D. on 03/23/2023 at 17:50 Approved by: Imtiaz Rapp M.D. on 03/23/2023 at 17:53
== END ==
PROVIDERS: PCP Physician Assistant; Referring Provider Physician Assistant; Visit Provider Physician Assistant
DX: R09.89 Other specified symptoms and signs involving the circulatory and respiratory systems (principal); R60.0 Localized edema
CPT/HCPCS: 93925

== ENCOUNTER → 2023-07-15 12:40 | Outpatient (CLI) | payer OTHER, SELFPAY ==
[2018-06-15 04:12] VITALS: PULSE 75; RESP 30; O2SAT 96
[2021-07-24 09:31] VITALS: BMI 35.9
--- NOTE | 2023-07-17 15:46 | DIAB.FU ---
Follow-up Diabetes Education Assessment Name: BertinBossman ([place]) Date: 07/15/23 Time: 1-2p Dx: Type II Diabetes Provider: Micheline Boyle presents for DM follow-up with , Kathy. States he has started insulin, Lantus HS. Up to 34u at this time with consistent hyperglycemia in the morning above 150mg/dl, often >200mg/dl. Increasing by 2u q 3 days. Sees endo Jul 30. Wants CGm, which he should qualify for with single injections of insulin. Diet recall indicates some mornings of high CHO intake with cold cereal and fruit. Other mornings with oats or sandwich, CHO in goal. Eating TID, breakfast, snack, dinner. Dinner portions withing goal. Snack often small dessert. Questions regarding label reading, carb recs, and insulin. Physical Activity: Cont 600-700 steps per day with ADLs. Physical and stage of change barriers to inc activity. Wears pedometer. Self-Monitoring Blood Glucose: Needs titration of HS insulin for FBG, but likely needs additional injection given HS BG of >250mg/dl consistently. Date Pre Post Pre Post Pre Post HS 07/10 200 372 07/11 187 435 07/12 245 449 07/13 256 353 07/14 179 294 07/15 159 350 07/16 251 Diabetes Medications: Metformin 1000mg BID Lantus HS 34u (titrating, staying under 60u) Pertinent Labs: Unsure of last HgA1c, reports was >10% Per patient: HgA1c 9.3% 11/2022 7.6% 11/2021 8.5% 05/2022 9.1% 08/2021 Past Medical History: (Last Reviewed 07/30/21 @ 19:44 by Bossman Purdy DO) Anemia Atrial fibrillation CAD (coronary artery disease), [place] coronary artery Cognitive impairment, mild, so stated Constipation COPD (chronic obstructive pulmonary disease) Diabetes mellitus Diastolic CHF Essential tremor GERD (gastroesophageal reflux disease) Gout middle finger on right hand HLD (hyperlipidemia) HTN (hypertension) Low back pain Intervention: This participant was very receptive. Provided appropriate educational handouts. Discussed the following topics: Recent blood sugar results and trends Medication management: insulin action, titration Review of general nutrition recommendations and current intake Physical activity plan and impact on blood sugars Label reading Created SMART goals for patient self-care and success. Goals: Call endo for visit- met Keep up activity - met Frederick days on BG log when more active- d/c Increase by 3-4u Lantus tonight- new Increase by 2-3u q 2-3 days - new Check pizza label for Na and CHO- new Choose oats over cold cereal- new Follow-up: SARAH KAMARA follow-up in 2-3 weeks. Needs additional hours for DM education/ MNT. Will send secondary referral request. Additionally, would benefit from CGM rx. Will send ADS form to provider for CGM if she agrees. Lily Benson RDN, [facility] Certified Diabetes Care and Legal Clerk P: [phone] Thank you for this referral
== END ==
PROVIDERS: PCP Physician Assistant; Referring Provider Physician Assistant; Visit Provider Physician Assistant
DX: E11.9 Type 2 diabetes mellitus without complications (principal); Z79.84 Long term (current) use of oral hypoglycemic drugs; Z79.4 Long term (current) use of insulin; Z71.3 Dietary counseling and surveillance
CPT/HCPCS: G0108

== ENCOUNTER → 2023-07-31 12:50 | Outpatient (CLI) | payer OTHER, SELFPAY ==
[2018-06-15 04:12] VITALS: PULSE 75; RESP 30; O2SAT 96
[2021-07-24 09:31] VITALS: BMI 35.9
--- NOTE | 2023-07-31 15:35 | DIAB.MNTFU ---
Follow-up Diabetes Medical Nutrition Therapy Assessment Name: Bossman Denton ([place]) Date: 07/31/23 Time: 105-215p Dx: Type II Diabetes Provider: Micheline Boyle presents for DM follow-up with , Kathy. Saw endo since last visit and has new rx for GLP1 and CGM. Has not started yet though due to waiting for pharmacy. States endo wants to start Freestyle Allison 2 or 3 but his phone is not compatible. Upon further investigation, Dexcom may be compatible but when trying to download the julian only the G6 is available. [place] wants to get a new phone. He was informed that without a compatible phone he would just need to use the CGM reader that is covered by Medicare. Received titration down schedule for insulin once starting GLP1. Reports choosing cold cereal less often as discussed last visit. Reading food labels for sodium and carbs. Has questions about whether he should be eating oats. Overall, diet recall seems appropriately moderate to low in carb intake. Some considerations for quality of life with food choices expressed by [place] and Kathy, which this RD supports (ie small portions of dessert from [employer], which are diabetes friendly when available). Diet Recall: B: one cup cooked oats with nuts and sweet n low L: MOW dessert or 8-10 crackers with PB D: fish or chx or turkey and 1/2 sweet potato and veggies Beverages: Water 17oz x 2-3 Anthropometrics: Ht: 6' Wt: 265# at endo visit Physical Activity: Limited program to ADLs. Self-Monitoring Blood Glucose: Much improved FBG with fastings in goal. States endo provided FBG goal of 80-140mg/dl. Currently on 50u Lantus HS. Endo asked him to reduce to 40u and then provided further changes once GLP1 is started. HS readings still elevated, hoping GLP1 will help with this. Has questions regarding CGM options and use. Date Pre Post Pre Post Pre Post HS 07/25 96 219 07/26 136 191 07/27 86 193 07/28 106 214 07/29 106 250 07/30 205 222 07/31 90 Diabetes Medications: Metformin 1000mg BID Lantus HS 50u Mounjaro (not started yet) Pertinent Labs: Unsure of last HgA1c, reports was >10% Per patient: HgA1c 9.3% 11/2022 7.6% 11/2021 8.5% 05/2022 9.1% 08/2021 Past Medical History: (Last Reviewed 07/30/21 @ 19:44 by Bossman Purdy DO) Anemia Atrial fibrillation CAD (coronary artery disease), [place] coronary artery Cognitive impairment, mild, so stated Constipation COPD (chronic obstructive pulmonary disease) Diabetes mellitus Diastolic CHF Essential tremor GERD (gastroesophageal reflux disease) Gout middle finger on right hand HLD (hyperlipidemia) HTN (hypertension) Low back pain Nutrition Rx: Carbohydrates: Meal: 45g Snack:15-30g Nutrition Diagnosis: Nutrition knowledge deficit r/t differences between cereal types aeb pt report Nutrition knowledge deficit r/t needing additional label reading education aeb pt report Intervention: This participant was very receptive. Provided appropriate educational handouts. Discussed the following topics: Blood sugar review and trends. GLP1 action, SE CGM: types, uses, and compatibility with phone types Label reading review: sodium mg and carb grams Cold cereal vs oats nutrition Macronutrient pairing review Created SMART goals for patient self-care and success. Goals: Increase by 3-4u Lantus tonight- met Increase by 2-3u q 2-3 days - met Check pizza label for Na and CHO- met Choose oats over cold cereal- met Add nuts to oats every morning- new Call for sooner appt to place CGM prn- new Follow instructions for insulin changes from endo- new Follow-up: SARAH KAMARA follow-up in 4 weeks or sooner prn Lily Benson RDN, [facility] Certified Diabetes Care and Serging Machine Operator P: [phone] Thank you for this referral
== END ==
PROVIDERS: PCP Physician Assistant; Referring Provider Physician Assistant; Visit Provider Physician Assistant
DX: E11.9 Type 2 diabetes mellitus without complications (principal); Z79.84 Long term (current) use of oral hypoglycemic drugs; Z79.4 Long term (current) use of insulin; Z71.3 Dietary counseling and surveillance
CPT/HCPCS: 97803

== ENCOUNTER → 2023-08-28 14:20 | Outpatient (CLI) | payer OTHER, SELFPAY ==
[2018-06-15 04:12] VITALS: PULSE 75; RESP 30; O2SAT 96
[2021-07-24 09:31] VITALS: BMI 35.9
--- NOTE | 2023-09-09 09:26 | DIAB.FU ---
Follow-up Diabetes Education Assessment: Personal CGM Placement Name: BertinBossman ([place]) Date: 08/28/23 Time: 237-340p Dx: Type II Diabetes Provider: Micheline Boyle presents for DM follow-up with , Kathy. Brought FSL for set up. [place] is well versed in the device and has read the pamphlets that came with the device. He has limited questions, other than how to pair the device to his phone. Upon further review, his phone is not compatible. He will use the provided reader instead. Has added protein (nuts) to his oat breakfast. Has been adjusting evening Lantus according to fasting numbers. Mounjaro not covered by insurance. May need different GLP1RA rx. Encouraged [place] and Kathy to contact endo for problem solving coverage vs different rx. Self-Monitoring Blood Glucose: Currently using finger sticks. FBG much improved but HS readings often still elevated. Likely needs additional dm med (mealtime insulin vs GLP1 pending insurance coverage). Sees endo in October and PCP this month. Had increased evening insulin to 48 units and this morning FBG was 75. Advised to go back to 45u (FBG were 126, 114, 214H, 125, 175H, 136 mg/dl). Diabetes Medications: Metformin 1000mg BID Lantus HS 45-48u Mounjaro (not started yet) Pertinent Labs: Unsure of last HgA1c, reports was >10% Per patient: HgA1c 9.3% 11/2022 7.6% 11/2021 8.5% 05/2022 9.1% 08/2021 Past Medical History: (Last Reviewed 07/30/21 @ 19:44 by Bossman Purdy DO) Anemia Atrial fibrillation CAD (coronary artery disease), [place] coronary artery Cognitive impairment, mild, so stated Constipation COPD (chronic obstructive pulmonary disease) Diabetes mellitus Diastolic CHF Essential tremor GERD (gastroesophageal reflux disease) Gout middle finger on right hand HLD (hyperlipidemia) HTN (hypertension) Low back pain Intervention: This participant was very receptive. Provided appropriate educational handouts. Discussed the following topics: Recent blood sugar results and trends Medication management: FBG goals and keeping Lantus at 45u Review of general nutrition recommendations and current intake Created SMART goals for patient self-care and success. Goals: Add nuts to oats every morning- met Call for sooner appt to place CGM prn- d/c Follow instructions for insulin changes from endo- met Move back to 45u HS for Lantus- new Call endo regarding Mounjaro- ronald Follow-up: SARAH KAMARA follow-up in 3-4 weeks Lily Benson RDN, [facility] Certified Diabetes Care and Rail Filler P: [phone] Thank you for this referral
== END ==
PROVIDERS: PCP Physician Assistant; Referring Provider Physician Assistant; Visit Provider Physician Assistant
DX: E11.9 Type 2 diabetes mellitus without complications (principal); Z79.84 Long term (current) use of oral hypoglycemic drugs; Z79.4 Long term (current) use of insulin; Z71.3 Dietary counseling and surveillance
CPT/HCPCS: 95249

== ENCOUNTER → 2023-09-16 13:50 | Outpatient (CLI) | payer OTHER, SELFPAY ==
[2018-06-15 04:12] VITALS: PULSE 75; RESP 30; O2SAT 96
[2021-07-24 09:31] VITALS: BMI 35.9
--- NOTE | 2023-09-23 17:07 | DIAB.FU ---
Follow-up Diabetes Education Assessment Name: Bossman Denton ([place]) Date: 09/16/23 Time: 210-3p Dx: Type II Diabetes Provider: Micheline Boyle presents for DM follow-up with , Kathy. CGM indicates in range time of 82%, which is much improved. Overall BG seem to be well managed currently. CGM use seems to have impacted some diet changes. Has been adjusting long acting insulin due to having some lows in evening. Reduced now to 40u. Has not started GLP1RA. Has not contacted endo about coverage (switching GLP1 vs prior auth for Mounjaro) since last denied. Self-Monitoring Blood Glucose: Could not download FSL independent sales representative today. Overall, BG are looking well managed. Some lows, which prompted discussion of how to prevent/tx lows. TIme in range: above goal: 15% In range: 85% Below goal: 3% Avg Bmg/dl 7 days Recent finger sticks: FBG 88-125 and HS 128-243mg/dl with most under 190mg/dl Diabetes Medications: Metformin 1000mg BID Lantus HS 40-45u Mounjaro (not started yet) Pertinent Labs: Unsure of last HgA1c, reports 08/2023 result 9.1-9.2%. Anticipate improved result next lab. Per patient: HgA1c 9.3% 11/2022 7.6% 11/2021 8.5% 05/2022 9.1% 08/2021 Past Medical History: (Last Reviewed 07/30/21 @ 19:44 by Bossman Purdy DO) Anemia Atrial fibrillation CAD (coronary artery disease), [place] coronary artery Cognitive impairment, mild, so stated Constipation COPD (chronic obstructive pulmonary disease) Diabetes mellitus Diastolic CHF Essential tremor GERD (gastroesophageal reflux disease) Gout middle finger on right hand HLD (hyperlipidemia) HTN (hypertension) Low back pain Intervention: This participant was very receptive. Provided appropriate educational handouts. Discussed the following topics: Recent blood sugar results and trends Medication management Review of general nutrition recommendations and current intake Hypoglycemia treatment with RUle of 15 and avoiding lows Titration of insulin down if starting GLP1RA Benefits of GLP1RA Created SMART goals for patient self-care and success. Goals: Move back to 45u HS for Lantus- d/c Call endo regarding Mounjaro- in progress Practice Rule of 15 for lows- new [facility] 6-8 weeks or sooner prn. Overall, BG management is going well. If starting GLP1 and needing support with titration schedule, encouraged sooner f/u. Otherwise, continuing current regimen with special attention to avoiding lows. [place] and Kathy both agreed to this plan. Lily Benson RDN, [facility] Certified Diabetes Care and Manufacturer'S Service Representative P: [phone] Thank you for this referral
== END ==
PROVIDERS: PCP Physician Assistant; Referring Provider Physician Assistant; Visit Provider Physician Assistant
DX: E11.9 Type 2 diabetes mellitus without complications (principal); Z79.84 Long term (current) use of oral hypoglycemic drugs; Z79.4 Long term (current) use of insulin
CPT/HCPCS: G0108

== ENCOUNTER 2023-12-21 13:44 | Emergency (ER) | payer MEDICARE, SELFPAY ==
[2018-06-15 04:12] VITALS: PULSE 75; RESP 30; O2SAT 96
[2021-07-24 09:31] VITALS: BMI 35.9
[2023-12-21 13:46] VITALS: BP 150/70; PULSE 61; RESP 12; TEMP 36.2; O2SAT 97; BMI 35.2
--- NOTE | 2023-12-21 13:53 | DI.CT.S_ITS ---
PROCEDURE: CT CERVICAL SPINE WO CON INDICATIONS: fall, on thinners TECHNIQUE: Noncontrast 3 mm thick sections acquired from the skull base to the T4 level. Sagittal and coronal reformats were then constructed. For radiation dose reduction, the following was used: automated exposure control, adjustment of mA and/or kV according to patient size. COMPARISON: None. FINDINGS: Image quality: Excellent. Bones: No fractures or dislocations. Visualized superior ribs are intact. Cervical spondylosis. Upper thoracic fusion hardware. Soft tissues: Prevertebral soft tissues are normal in thickness. No paravertebral hematomas. No apical pneumothoraces. Biapical emphysematous change. IMPRESSION: 1. No acute cervical fracture or dislocation. 2. Cervical spondylosis. 3. Emphysematous change. Dictated by: Imtiaz Rapp M.D. on 12/21/2023 at 14:35 Approved by: Imtiaz Rapp M.D. on 12/21/2023 at 14:37
--- NOTE | 2023-12-21 13:53 | DI.CT.S_ITS ---
PROCEDURE: CT HEAD/BRAIN WO CON INDICATIONS: fall, on thinners TECHNIQUE: Noncontrast 4.5 mm thick angled axial sections acquired from the foramen magnum to the vertex, with coronal and sagittal reformats. For radiation dose reduction, the following was used: automated exposure control, adjustment of mA and/or kV according to patient size. COMPARISON: [facility], CT, CT HEAD/BRAIN WO CON, 06/06/2022, 10:50. FINDINGS: Image quality: Diagnostic. CSF spaces: Basal cisterns are patent. No extra-axial fluid collections. The ventricles are symmetric in size and shape. Brain: No intracranial bleeds or masses. There is cerebral volume loss for age, with resultant ventricular and sulcal prominence. There are periventricular and deep white matter chronic small vessel ischemic changes. There is intracranial internal carotid artery atherosclerosis. Skull and face: Calvarium and visualized facial bones appear intact, without suspicious lesions. Sinuses: Visualized sinuses and mastoids are clear. IMPRESSION: No acute intracranial pathology. Dictated by: Imtiaz Rapp M.D. on 12/21/2023 at 14:38 Approved by: Imtiaz Rapp M.D. on 12/21/2023 at 14:39
[2023-12-21 15:27] LABS: INR 2.7 (0.9-1.3); Prothrombin Time 31.8 SECONDS (9.4-12.5)
[2023-12-21 15:55] VITALS: BP 166/75; PULSE 54; RESP 18; O2SAT 99
--- NOTE | 2023-12-21 19:20 | ED_ITS ---
HPI - Fall <Kj Brennan PA-C - Last Filed: 12/21/23 19:27> General Chief Complaint: Fall Stated Complaint: Mechanical fall, headache +thinner Time Seen by Provider: 12/21/23 15:45 Source: EMS Mode of arrival: EMS History of Present Illness HPI Narrative: 78-year-old male with past medical history hypertension, CHF, CAD, COPD, on Coumadin presents to the ED status post a head injury from a fall that occurred earlier today. Patient was in the shower, when he experienced a mechanical fall causing him to hit the back of his head and injure his left pinky finger. Patient denies loss of consciousness. Patient was brought in by EMS. Patient denies feeling lightheaded or dizzy or feeling chest pain or shortness of breath prior to the fall. Related Data Home Medications Medication Instructions Recorded Confirmed albuterol sulfate 90 mcg/actuation 2 puff INH Q6HP PRN Shortness Of 05/20/13 03/04/23 aerosol inhaler (Ventolin HFA) Breath #0 puffs polyethylene glycol 3350 17 17 gm PO QDAYP PRN Constipation ##0 05/20/13 03/04/23 gram/dose oral powder (Miralax) acetaminophen 500 mg capsule 2 cap PO TID 06/07/18 03/04/23 aspirin 81 mg tablet,delayed 81 mg PO 0630 06/07/18 03/04/23 release atorvastatin 40 mg tablet 1 tab PO BEDTIME 06/07/18 03/04/23 cholecalciferol (vitamin D3) 25 1,000 unit PO QAM 06/07/18 03/04/23 mcg (1,000 unit) capsule (Vitamin D3) docusate sodium 100 mg capsule 100 mg PO QAM 06/07/18 03/04/23 doxazosin 8 mg tablet 8 mg PO 0630 06/07/18 03/04/23 furosemide 40 mg tablet 40 mg PO BID 06/07/18 07/23/21 multivitamin 1 tab PO QAM 06/07/18 07/23/21 nitroglycerin 0.4 mg sublingual 0.4 mg sublingual Q5-15M PRN Chest 06/07/18 03/04/23 tablet Pain pantoprazole 20 mg tablet,delayed 20 mg PO QAM 06/07/18 03/04/23 release propranolol 60 mg tablet 1 tab PO TID 06/07/18 03/04/23 levothyroxine 100 mcg tablet 300 mcg PO QAM 07/20/18 03/04/23 allopurinol 100 mg tablet 100 mg PO QAM 07/23/21 03/04/23 duloxetine 60 mg capsule,delayed 60 mg PO BEDTIME 07/23/21 03/04/23 release oxycodone 5 mg tablet 5 mg PO Q6HR 07/23/21 03/04/23 Previous Rx's Medication Instructions Recorded gabapentin 100 mg capsule 100 mg PO TID #90 caps 07/23/18 oxybutynin chloride 5 mg tablet 1 tab PO BEDTIME #0 tabs 07/23/18 diltiazem HCl 30 mg tablet 30 mg PO Q6H #120 tabs 07/26/21 warfarin 5 mg tablet 5 mg PO DAILY #30 tabs 07/26/21 Allergies Allergy/AdvReac Type Severity Reaction Status Date / Time fentanyl [FENTANYL] Allergy Severe HIVES, Verified 07/30/21 14:19 ITCHING iodine [IODINE] Allergy Severe RASH - Verified 07/30/21 14:19 TOPICAL AND IV CONTRAST shellfish derived Allergy Severe Abdominal Verified 07/30/21 14:19 [SHELLFISH DERIVED] Pain cyclobenzaprine Allergy Intermediate ITCHING Verified 07/30/21 14:19 [CYCLOBENZAPRINE] diclofenac [DICLOFENAC] Allergy Intermediate ITCHING Verified 07/30/21 14:19 methadone [METHADONE] Allergy Intermediate ITCHING Verified 07/30/21 14:19 hydromorphone [HYDROMORPHONE] Allergy Mild ITCHING Verified 07/30/21 14:19 hydroxyzine [HYDROXYZINE] Allergy Mild FEVER, Verified 07/30/21 14:19 SWEATS ibuprofen [IBUPROFEN] Allergy Unknown Verified 07/30/21 14:19 aspirin [ASPIRIN] AdvReac Severe STOMACH Verified 07/30/21 14:19 PAIN & HIVE W/325MG, CAN TAKE 81 MG solifenacin [From [facility]] AdvReac Unknown INCREASE Verified 07/30/21 14:19 PVR AND URINARY SX RACHEL AdvReac Unknown DOES NOT Uncoded 11/25/17 12:09 WORK Review of Systems <Kj Brennan PA-C - Last Filed: 12/21/23 19:27> Constitutional Constitutional: Denies chills, Denies fatigue, Denies fever(s), Denies frequent falls, Reports headache(s), Denies lethargy and Denies weakness Eyes Eyes: Denies change in vision, Denies eye discharge, Denies irritation and Denies loss of vision ENT Ears, Nose, Mouth, and Throat: Denies change in voice, Denies dizziness, Reports headache(s), Denies neck pain, Denies sore throat and Denies throat swelling Cardiovascular Cardiovascular: Denies chest pain, Denies irregular heart rhythm, Denies lightheadedness, Denies palpitations, Denies dyspnea, Denies dyspnea on exertion and Denies orthopnea Respiratory Respiratory: Denies cough, Denies dyspnea, Denies dyspnea on exertion and Denies wheezing Gastrointestinal Gastrointestinal: Denies abdominal pain, Denies change in bowel habits, Denies diarrhea, Denies nausea and Denies vomiting Musculoskeletal Musculoskeletal: Denies neck pain and Denies numbness Integumentary/Breasts Skin/Breast: Denies pruritus, Denies erythema, Denies rash and Denies wounds Comments: Left pinky finger injury Neurologic Neurologic: Denies behavioral changes, Denies confusion, Denies dizziness, Denies frequent falls, Reports headache(s), Denies loss of vision, Denies numbness and Denies weakness Psychiatric Psychiatric: Denies anxiety, Denies behavioral changes, Denies confusion, Denies depression, Denies homicidal ideation and Denies suicidal ideation Endocrine Endocrine: Denies fatigue, Denies flushing and Denies palpitations Hematologic/Lymphatic Hematologic/Lymphatic: Denies easy bruising Allergic/Immunologic Allergic/Immunologic: Denies urticaria, Denies throat swelling and Denies wheezing Patient History <Kj Brennan PA-C - Last Filed: 12/21/23 19:27> Medical History Gout Cognitive impairment, mild, so stated Low back pain Constipation Essential tremor Atrial fibrillation HLD (hyperlipidemia) CAD (coronary artery disease), [place] coronary artery Anemia GERD (gastroesophageal reflux disease) Diabetes mellitus COPD (chronic obstructive pulmonary disease) HTN (hypertension) Diastolic CHF Surgical History H/O rotator cuff surgery H/O arthroscopic knee surgery History of back surgery H/O abdominal surgery Family History Mother Diabetes mellitus Cancer Father Diabetes mellitus Cancer Social History household members: spouse Smoking Status: Former smoker alcohol intake: never Smoking Status: Former smoker alcohol intake frequency: holidays/special occasions only Substance Use Type: does not use Exam <Kj Brennan PA-C - Last Filed: 12/21/23 19:27> Narrative Exam Narrative: Const General:?cooperative, healthy appearing and comfortable [facility] Head:?normal to inspection; no skull depressions; no hematoma; skin is intact Ears:?hearing grossly normal bilaterally Nose:?external nose normal Face and sinus:?normal facial exam and sinuses nontender Mouth:?oral mucosae normal Throat:?posterior oropharynx normal Eyes General:?appearance normal, both eyes and all related structures Neck Neck:?normal visual inspection and no lymphadenopathy noted Resp Effort & Inspection:?normal respiratory effort Auscultation:?clear to auscultation bilaterally Cardio Rate:?regular rate Rhythm:?regular rhythm Musculoskeletal No midline tenderness to palpation. No paraspinal tenderness to palpation. Integumentary There is a small skin flap laceration to the tip of the left pinky. Mildly oozing. Neuro General:?patient alert, patient awake and patient oriented x3 Initial Vital Signs Initial Vital Signs: Vital Signs Temperature 97.2 F L 12/21/23 13:46 Pulse Rate 61 12/21/23 13:46 Respiratory Rate 12 12/21/23 13:46 Blood Pressure 150/70 H 12/21/23 13:46 Pulse Oximetry 97 12/21/23 13:46 Oxygen Delivery Method Room Air 12/21/23 13:46 <Noris Kelley MD - Last Filed: 12/30/23 00:57> Initial Vital Signs Initial Vital Signs: Vital Signs Temperature 97.2 F L 12/21/23 13:46 Pulse Rate 61 12/21/23 13:46 Respiratory Rate 12 12/21/23 13:46 Blood Pressure 150/70 H 12/21/23 13:46 Pulse Oximetry 97 12/21/23 13:46 Oxygen Delivery Method Room Air 12/21/23 13:46 Procedures <Kj Brennan PA-C - Last Filed: 12/21/23 19:27> Laceration Repair Laceration 1: Site: upper extremity Side (If applicable): left Size (cm): 1 Description: flap Depth: simple, single layer Pre-repair: wound explored, irrigated extensively and deep structures intact Skin layer closed with: steri-strips Course <Kj Brennan PA-C - Last Filed: 12/21/23 19:27> Orders Ordered: ED Orders 12/21/23 13:53 CT cervical spine wo con Stat CT head/brain wo con Stat 12/21/23 15:10 PT [Prothrombin Time INR] Stat Vital Signs Vital signs: Vital Signs - 8 hr 12/21/23 13:46 12/21/23 15:55 Temperature 97.2 F L Pulse Rate 61 54 L Respiratory Rate 12 18 Blood Pressure 150/70 H 166/75 H Pulse Oximetry 97 99 Oxygen Delivery Method Room Air Room Air <Noris Kelley MD - Last Filed: 12/30/23 00:57> Orders Ordered: ED Orders 12/21/23 13:53 CT cervical spine wo con Stat CT head/brain wo con Stat 12/21/23 15:10 PT [Prothrombin Time INR] Stat Vital Signs Vital signs: Vital Signs - 8 hr 12/21/23 13:46 12/21/23 15:55 Temperature 97.2 F L Pulse Rate 61 54 L Respiratory Rate 12 18 Blood Pressure 150/70 H 166/75 H Pulse Oximetry 97 99 Oxygen Delivery Method Room Air Room Air MDM - Fall <Kj Brennan PA-C - Last Filed: 12/21/23 19:27> Lab Data Labs: Lab Results 12/21/23 Range/Units 15:10 PT 31.8 H (9.4-12.5) SECONDS INR 2.7 H (0.9-1.3) [facility] Narrative Medical decision making narrative: 78-year-old male with past medical history hypertension, CHF, CAD, COPD, on Coumadin presents to the ED status post a head injury from a fall that occurred earlier today. Obtained CT head to rule out fractures/intracranial bleeds. CT head without acute finding. CT cervical spine was also without acute findings. There is a small skin flap laceration injury which is oozing slightly. Laceration was cleaned and Steri-Strips applied for closure and bandaged. ED return precautions were discussed with patient. Patient verbalized understanding. Medical records reviewed: Yes <Noris Kelley MD - Last Filed: 12/30/23 00:57> Lab Data Labs: Lab Results 12/21/23 Range/Units 15:10 PT 31.8 H (9.4-12.5) SECONDS INR 2.7 H (0.9-1.3) Discharge Plan Departure Patient Disposition: Home Clinical Impression: Laceration Head injury Qualifiers: Encounter type: initial encounter Qualified Code(s): S09.90XA - Unspecified injury of head, initial encounter Instructions: DI for Laceration Repair-Skin Closure Strips, How to Prevent Falls Activity Restrictions/Additional Instructions: You were evaluated in the ED today following a fall and head injury. The CT scan was normal. There was a little laceration on your left pinky finger that was repaired with Steri-Strips. Please keep the Steri-Strips on until they fall off by themselves. Please watch for signs of infection including worsening pain, swelling, warmth, redness, discharge. Return to the ED if you have note any signs of infection or worsening symptoms. Please follow-up with your PCP as soon as possible. Prescriptions: No Action albuterol sulfate [Ventolin HFA] 90 MCG/PUFF HFA aerosol inhaler 2 puff INH Q6HP PRN (Reason: Shortness Of Breath) Qty: 0 polyethylene glycol 3350 [Miralax] 119 GM powder 17 gm PO QDAYP PRN (Reason: Constipation) Qty: 0 furosemide 40 mg tablet 40 mg PO BID atorvastatin 40 mg tablet 1 tab PO BEDTIME propranolol 60 mg tablet 1 tab PO TID Patient Comments: 0630 1200 2230 pantoprazole 20 mg tablet,delayed release (DR/EC) 20 mg PO QAM doxazosin 8 mg tablet 8 mg PO 0630 aspirin 81 mg Tablet,Delayed Release (Dr/Ec) 81 mg PO 0630 acetaminophen 500 mg Capsule 2 cap PO TID multivitamin Tablet 1 tab PO QAM nitroglycerin 0.4 mg Tablet, Sublingual 0.4 mg SUBLINGUAL Q5-15M PRN (Reason: Chest Pain) docusate sodium 100 mg Capsule 100 mg PO QAM cholecalciferol (vitamin D3) [Vitamin D3] 1,000 unit Capsule 1,000 unit PO QAM allopurinol 100 mg tablet 100 mg PO QAM oxycodone 5 mg tablet 5 mg PO Q6HR Patient Comments: TAKE 2 TABS AT 6 AM FOR BACK PAIN THEN 1 TAB EVERY 3 HOURS UNTIL BEDTIME- pt takes scheduled q6hr. Rx Instructions: 01/26/1800/000 duloxetine 60 mg Capsule,Delayed Release(Dr/Ec) 60 mg PO BEDTIME diltiazem HCl 30 mg Tablet 30 mg PO Q6H Qty: 120 0RF warfarin 5 mg tablet 5 mg PO DAILY Qty: 30 0RF levothyroxine 100 mcg tablet 300 mcg PO QAM gabapentin 100 mg capsule 100 mg PO TID Qty: 90 0RF oxybutynin chloride 5 mg tablet 1 tab PO BEDTIME Qty: 0 0RF Patient Comments: Referrals: Corinna Tobias PA-C [Primary Care Provider] - Stand Alone Forms: Patient Portal/API ED Sign-out <Noris Kelley MD - Last Filed: 12/30/23 00:57> Cosign ED Attending Desi Attestation: I was immediately available in the department for consultation throughout this patient's visit. Noris Kelley MD
== END 2023-12-21 16:31 | disposition home or self-care (01) ==
PROVIDERS: Emergency Medicine; Emergency Provider Student in an Organized Health Care Education/Training Program; PCP Physician Assistant
DX: S09.90XA Unspecified injury of head, initial encounter (principal); S61.217A Laceration without foreign body of left little finger without damage to nail, initial encounter; W18.30XA Fall on same level, unspecified, initial encounter; Z79.01 Long term (current) use of anticoagulants
CPT/HCPCS: 36415; 70450; 72125; 85610; 99281; 99284

== ENCOUNTER → 2023-12-22 12:26 | Outpatient (CLI) | payer MEDICARE, SELFPAY ==
[2018-06-15 04:12] VITALS: PULSE 75; RESP 30; O2SAT 96
[2021-07-24 09:31] VITALS: BMI 35.9
--- NOTE | 2023-12-22 12:31 | DI.ECHO.S_ITS ---
[facility] : : [address] : : [place] : : [id number] : : Phone: [phone] Echocardiogram Report + + :Name: ELAINE CAO Study Date: 12/22/2023 Height: 72 in : :Hospital ReadingLocation: Weight: 265 lb : : Gender: Male BSA: 2.4 m2 : :: 1945 Age: 78 yrs BP: 139/80 mmHg: :Reason For Study: SHORTNESS OF BREATH : :Ordering Physician: MELVIN, : :BROOKLYNN Paredes Performed By: Ruby Long : :Referring: BROOKLYNN CHARLES W : + + Interpretation Summary The left ventricle is normal in size and wall thickness. The left ventricular ejection fraction is normal. The ejection fraction is estimated to be 60-65%. There has been no significant change in LVEF since the previous exam. The right ventricle is normal in size and function. The aortic valve is trileaflet. There is discrete nodular thickening of the non- coronary cusp. There is mildly reduced leaflet mobility. There is no hemodynamically significant valvular aortic stenosis. The IVC is dilated (diameter is greater than 2.1 cm) yet it collapses greater than 50% with a sniff. This suggests a right atrial pressure of 8 mm Hg. Mild atherosclerotic plaque(s) in the aortic arch. Procedure: A two-dimensional transthoracic echocardiogram with color flow and Doppler was performed. The study quality was technically adequate. Comparison is made with the echocardiogram of 07/24/2021. The patient was in sinus bradycardia with heart rates between 52-55 bpm during the exam. The patient had a bundle branch block rhythm during the exam. The patient had occasional PACs during the exam. Left Ventricle: The left ventricle is normal in size and wall thickness. There is no thrombus. The ejection fraction is estimated to be 60-65%. The left ventricular ejection fraction is normal. There has been no significant change since the previous exam. There are no focal wall motion abnormalities. Diastolic parameters suggest a relaxation abnormality of the left ventricle, consistent with probable normal filling pressures. Right Ventricle: The right ventricle is normal in size and function. Atria: The left atrial size is normal. Right atrial size is normal. A prominent eustachian valve is noted. There is no Doppler evidence for an interatrial shunt. The thickening of interatrial septum suggests lipomatous hypertrophy. Mitral Valve: There is a flat closure plane of the the mitral valve leaflets. There is mild mitral annular calcification. There is trace mitral regurgitation. There has been no significant change since the previous study. Aortic Valve: The aortic valve is mildly calcified. There is mildly reduced leaflet mobility. There is mild aortic valve sclerosis. There is discrete nodular thickening of the non- coronary cusp. The aortic valve is trileaflet. The peak aortic velocity is 1.8 m/sec. The aortic valve mean gradient is 7.5 mmHg. The calculated aortic valve area is 2.1 cm2. There is no hemodynamically significant valvular aortic stenosis. No aortic regurgitation is present. Tricuspid Valve: The tricuspid valve is normal in structure and function. There is trace tricuspid regurgitation. The right ventricular systolic pressure is estimated to be at least 33 mmHg based on an estimated right atrial pressure of 8 mm Hg. Pulmonic Valve: The pulmonic valve leaflets are thin and pliable; valve motion is normal. There is trace pulmonic regurgitation. Great Vessels: The aortic root is normal size. The dimensions of the ascending aorta are normal. Mild atherosclerotic plaque(s) in the aortic arch. The IVC is dilated (diameter is greater than 2.1 cm) yet it collapses greater than 50% with a sniff. This suggests a right atrial pressure of 8 mm Hg. Pericardium/ Pleura There is a trivial pericardial effusion noted. There is an anterior echo-free space consistent with a fat pad. There is no pleural effusion. MMode/2D Measurements & Calculations LVIDd: 5.8 cm LVOT diam: 2.3 cm LVIDs: 4.0 cm Ao root diam: 3.7 cm FS: 31.5 % asc Aorta Diam: 3.6 cm IVSd: 0.93 cm Ao Arch Diam (Prox Trans): 2.7 cm LVPWd: 0.90 cm LV estes. diameter/BSA (cm/m^2): 2.4 LV sys. diameter/BSA (cm/m^2): 1.7 LA A2 area: 15.9 cm2 RA long axis: 6.5 cm LA A4 area: 27.1 cm2 RA area: 24.5 cm2 LA length (vol): 6.9 cm RA vol: 78.2 ml LA vol: 52.7 ml RA : 32.6 ml/m2 LA vol index: 22.0 ml/m2 IVC diam: 2.3 cm RVD1 (basal): 4.0 cm RVD2 (mid): 3.7 cm TAPSE: 1.7 cm Doppler Measurements & Calculations Ao V2 max: 180.8 cm/sec LVOT Max Cristóbal: 88.4 cm/sec Ao V2 mean: 131.0 cm/sec LV V1 max P.1 mmHg Ao max P.1 mmHg LV V1 VTI: 18.5 cm Ao mean P.5 mmHg MERON(I,D): 2.0 cm2 Ao V2 VTI: 39.4 cm MERON(V,D): 2.1 cm2 sev ratio: 0.47 MERON indexed to BSA (cm^2/m^2): 0.84 MV E max cristóbal: 25.7 cm/sec TR max cristóbal: 251.4 cm/sec MV A max cristóbal: 74.2 cm/sec TR max P.3 mmHg MV E/A: 0.35 PA V2 max: 83.2 cm/sec Med Peak E' Cristóbal: 8.6 cm/sec PA V2 mean: 62.2 cm/sec E/E' med: 3.0 PA mean P.7 mmHg MV dec time: 0.29 sec PA pr(Accel): 32.8 mmHg SV(LVOT): 79.8 ml Reading Physician:04:04 PM
== END ==
PROVIDERS: PCP Physician Assistant; Referring Provider Nurse Practitioner; Visit Provider Nurse Practitioner
DX: I34.81 Nonrheumatic mitral (valve) annulus calcification (principal); I35.8 Other nonrheumatic aortic valve disorders; I70.0 Atherosclerosis of aorta; R06.02 Shortness of breath
CPT/HCPCS: 93306

== ENCOUNTER → 2023-12-23 13:46 | Outpatient (CLI) | payer MEDICARE, SELFPAY ==
[2018-06-15 04:12] VITALS: PULSE 75; RESP 30; O2SAT 96
[2021-07-24 09:31] VITALS: BMI 35.9
--- NOTE | 2023-12-29 18:49 | DI.NM.S_ITS ---
DATE OF SERVICE: 12/23/2023 PROCEDURE: Pharmacological perfusion study. INDICATIONS: Chest pain with known history of occluded RCA as well as OM stent in September 2014 with underlying hypertension and hyperlipidemia. RADIOPHARMACEUTICAL: 25.0 millicuries technetium-99m Myoview IV was injected at stress and 25.6 millicuries technetium-99m Myoview IV was injected at rest. CARDIAC STRESS: The patient underwent IV Lexiscan perfusion study under the supervision of an attending staff using standard intravenous Lexiscan as per protocol. 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 During stress, no new convincing ischemic EKG changes seen. Occasional PVCs. Minimal dyspnea. No chest discomfort. No [place]. No aminophylline needed. RAW DATA: There is increased subdiaphragmatic activity. GATED STUDY: Resting LV ejection fraction 62 and stress LV ejection fraction reported to be 75%. No obvious wall motion abnormalities seen. Resting end-diastolic volume 127 mL. TID ratio 0.56, which is within normal limits. Lung/heart ratio 0.28, which is within normal limits. MYOCARDIAL PERFUSION SCAN: Please note there is no prone images. Stress supine and resting supine images were compared to each other. There appears to be predominantly fixed moderate size, moderate to severely decreased perfusion of base to mid inferolateral wall consistent with old infarction without any significant ischemia. 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 Overall preserved left ventricular function. Overall, low-risk myocardial perfusion scan. [place] - SLY/yanci/JEANETTE doc#: [id number]/job#: [id number] dd: 12/29/2023 17:30:00 dt: 12/29/2023 17:42:00 DICTATING MD/COPIES TO: Richard Kurtz MD COPIES MNE: MARIEL;
== END ==
PROVIDERS: PCP Physician Assistant; Referring Provider Nurse Practitioner; Visit Provider Nurse Practitioner
DX: I25.10 Atherosclerotic heart disease of native coronary artery without angina pectoris (principal); R94.39 Abnormal result of other cardiovascular function study; I10 Essential (primary) hypertension; E78.5 Hyperlipidemia, unspecified; R07.9 Chest pain, unspecified; Z95.5 Presence of coronary angioplasty implant and graft
CPT/HCPCS: 78452; 93017; A9502; J2785

== ENCOUNTER → 2024-04-14 08:54 | Outpatient (CLI) | payer MEDICARE, SELFPAY ==
[2018-06-15 04:12] VITALS: PULSE 75; RESP 30; O2SAT 96
[2021-07-24 09:31] VITALS: BMI 35.9
--- NOTE | 2024-04-14 | DI.CT.S_ITS ---
PROCEDURE: CT ABDOMEN PELVIS W CON INDICATIONS: Left lower quadrant pain TECHNIQUE: After the administration of intravenous contrast, axial sections acquired from the lung bases to the pubic symphysis. Coronal and sagittal reformats were performed. For radiation dose reduction, the following was used: automated exposure control, adjustment of mA and/or kV according to patient size. COMPARISON: None. FINDINGS: Image quality: Streak metal artifact from posterior spinal hardware limits evaluation of surrounding soft tissue.. Lower Chest: No significant findings. ABDOMEN: Liver: No solid mass. Gallbladder: No radiopaque gallstones or wall thickening. Biliary ducts: No biliary dilation. Pancreas: No ductal dilation. Spleen: Size is within normal limits. Adrenal Glands: No adrenal nodules. Kidneys and Ureters: No hydronephrosis. No solid mass. No complex renal cystic lesion which requires follow up. Stomach and Bowel: Normal colonic caliber, without significant wall thickening. Peritoneum: No abnormal intraperitoneal fluid. No free air. Ventral Wall: No significant ventral hernia. Postsurgical changes along the ventral wall Abdominal Nodes: No retroperitoneal or mesenteric adenopathy by size criteria. Vessels: Aorta and inferior vena cava are normal in size. Aorto bi iliac atherosclerotic calcifications. PELVIS: Pelvic Organs: Enlarged prostate with irregular border. Bladder: No bladder wall thickening, accounting for underdistention. Pelvic Nodes: No enlarged lymph nodes. Miscellaneous: No inguinal hernias are seen. Bones: Status post extensive thoracolumbar posterior spinal fusion hardware. Levoconvex curvature of the lumbar spine. Severe multilevel degenerative changes with anterior compression deformities of midthoracic vertebral bodies. IMPRESSION: No acute process in the abdomen or pelvis to explain patient's symptoms. Prostatomegaly with mildly irregular contour. Consider correlation with PSA. Approved by: Luciana Barclay M.D.,Ph.D. on 04/14/2024 at 14:39
[2024-04-14 09:19] LABS: Estimated Glomerular Filt Rate > 60 mL/min (>60)
== END ==
PROVIDERS: Radiology Diagnostic Radiology; PCP Physician Assistant; Referring Provider Physician Assistant; Visit Provider Physician Assistant
DX: J96.02 Acute respiratory failure with hypercapnia (principal); N40.0 Benign prostatic hyperplasia without lower urinary tract symptoms; R10.32 Left lower quadrant pain; Z98.1 Arthrodesis status
CPT/HCPCS: 36415; 74177; 82565; Q9967

== ENCOUNTER → 2024-08-03 13:28 | Outpatient (CLI) | payer MEDICARE, SELFPAY ==
[2018-06-15 04:12] VITALS: PULSE 75; RESP 30; O2SAT 96
[2021-07-24 09:31] VITALS: BMI 35.9
== END ==
PROVIDERS: PCP Physician Assistant; Visit Provider Urology
DX: N40.1 Benign prostatic hyperplasia with lower urinary tract symptoms (principal)
CPT/HCPCS: 87086

== ENCOUNTER → 2024-10-27 11:50 | Outpatient (CLI) | payer MEDICARE, SELFPAY ==
[2018-06-15 04:12] VITALS: PULSE 75; RESP 30; O2SAT 96
[2021-07-24 09:31] VITALS: BMI 35.9
--- NOTE | 2024-10-27 11:51 | DI.MRI.S_ITS ---
PROCEDURE: MR HEAD/BRAIN WO CON INDICATIONS: HEADACHE,NEW OR WORSENING TECHNIQUE: Non-contrast axial T1 spin echo, axial T2 fast spin echo, sagittal and axial FLAIR, coronal T2 fast spin echo, axial gradient echo, axial diffusion and ADC through the brain. COMPARISON: [facility], CT, CT HEAD/BRAIN WO CON, 12/21/2023, 14:10. FINDINGS: Image quality: Excellent. CSF spaces: Ventricles appear symmetric in size and shape. Basal cisterns are patent. No extra-axial fluid collections. Brain: No intracranial bleeds or mass effects. There is cerebral volume loss for age. There are periventricular and deep white matter chronic small vessel ischemic changes. Brainstem appears normal. Diffusion-weighted images show no acute infarct. No chronic ischemic insults. Normal intravascular flow voids are present. Skull and face: Calvarial bone marrow is normal in signal. Orbits are normal. Sinuses: Sinuses and mastoids are clear. IMPRESSION: No acute intracranial abnormalities. No cause for patient's symptoms is identified. Age-related global volume loss and chronic microvascular ischemic changes are present. Dictated by: Gordy Yoon M.D. on 10/27/2024 at 14:25 Approved by: Gordy Yoon M.D. on 10/27/2024 at 14:29
== END ==
PROVIDERS: PCP Physician Assistant; Referring Provider Physician Assistant; Visit Provider Physician Assistant
DX: R51.9 Headache, unspecified (principal)
CPT/HCPCS: 70551

== ENCOUNTER → 2024-11-10 13:20 | Outpatient (CLI) | payer MEDICARE, SELFPAY ==
[2018-06-15 04:12] VITALS: PULSE 75; RESP 30; O2SAT 96
[2021-07-24 09:31] VITALS: BMI 35.9
== END ==
LOC: RESP 13:21
PROVIDERS: PCP Physician Assistant; Referring Provider Internal Medicine Critical Care Medicine; Visit Provider Internal Medicine Critical Care Medicine
DX: J44.9 Chronic obstructive pulmonary disease, unspecified (principal); J96.12 Chronic respiratory failure with hypercapnia; Z87.891 Personal history of nicotine dependence; R94.2 Abnormal results of pulmonary function studies
CPT/HCPCS: 94060; 94726; 94729

== ENCOUNTER → 2024-12-02 15:04 | Outpatient (CLI) | payer MEDICARE, SELFPAY ==
[2018-06-15 04:12] VITALS: PULSE 75; RESP 30; O2SAT 96
[2021-07-24 09:31] VITALS: BMI 35.9
== END ==
PROVIDERS: PCP Physician Assistant; Referring Provider Urology; Visit Provider Urology
DX: N40.1 Benign prostatic hyperplasia with lower urinary tract symptoms (principal); R32 Unspecified urinary incontinence
CPT/HCPCS: 87077; 87086; 87186

== ENCOUNTER 2025-05-16 01:16 | Inpatient (IN) | payer MEDICARE, SELFPAY ==
[2018-06-15 04:12] VITALS: PULSE 75; RESP 30; O2SAT 96
[2021-07-24 09:31] VITALS: BMI 35.9
[2025-05-16] VITALS (31 sets, daily range): BP systolic 81–189; BP diastolic 41–78; PULSE 62–103; RESP 0–34; TEMP 36.7–38; O2SAT 83–97; BMI 36.6
--- NOTE | 2025-05-16 01:17 | ED.FALL ---
HPI - Fall General Chief Complaint: Back Pain/Injury Stated Complaint: hip/back pain after fall History of Present Illness HPI Narrative: 80 year old male with past medical history of hypertension, congestive heart failure, coronary artery disease, COPD on Coumadin for atrial flutter history presents to the ED for a fall over his lower back area several hours ago. He denies any syncopal episode. He was just able to reach the telephone to be able to call the paramedics to come in. He denies any injury to his head or neck area. His complaints currently are in the lower back area and bilateral hip area. He also complains of some shortness of breath had his was recently diagnosed with COVID. His vital signs did show a low-grade fever. The patient also has quite a few tremors at baseline. No other symptoms. Related Data Home Medications ?Medication ?Instructions ?Recorded ?Confirmed albuterol sulfate 90 mcg/actuation 2 puff INH Q6HP PRN Shortness Of 05/20/13 12/02/24 aerosol inhaler (Ventolin HFA) Breath #0 puffs polyethylene glycol 3350 17 17 gm PO QDAYP PRN Constipation ##0 05/20/13 12/02/24 gram/dose oral powder (Miralax) acetaminophen 500 mg capsule 2 cap PO TID 06/07/18 12/02/24 aspirin 81 mg tablet,delayed 81 mg PO 0630 06/07/18 12/02/24 release atorvastatin 40 mg tablet 1 tab PO BEDTIME 06/07/18 12/02/24 cholecalciferol (vitamin D3) 25 1,000 unit PO QAM 06/07/18 12/02/24 mcg (1,000 unit) capsule (Vitamin D3) docusate sodium 100 mg capsule 100 mg PO QAM 06/07/18 12/02/24 doxazosin 8 mg tablet 8 mg PO 0630 06/07/18 12/02/24 nitroglycerin 0.4 mg sublingual 0.4 mg sublingual Q5-15M PRN Chest 06/07/18 12/02/24 tablet Pain pantoprazole 20 mg tablet,delayed 20 mg PO QAM 06/07/18 12/02/24 release propranolol 60 mg tablet 1 tab PO TID 06/07/18 12/02/24 levothyroxine 100 mcg tablet 300 mcg PO QAM 07/20/18 12/02/24 allopurinol 100 mg tablet 100 mg PO QAM 07/23/21 12/02/24 duloxetine 60 mg capsule,delayed 60 mg PO BEDTIME 07/23/21 12/02/24 release oxycodone 5 mg tablet 5 mg PO Q6HR 07/23/21 12/02/24 dulaglutide 0.75 mg/0.5 mL 0.75 mg SUBCUT 02/06/25 02/06/25 subcutaneous pen injector (Trulicity) insulin glargine 100 unit/mL (3 unit SUBCUT 02/06/25 02/06/25 mL) subcutaneous pen (Lantus Solostar U-100 Insulin) isosorbide mononitrate 30 mg 30 mg PO DAILY 02/06/25 02/06/25 tablet,extended release 24 hr metformin 500 mg tablet,extended 1,000 mg PO BID 02/06/25 02/06/25 release 24 hr torsemide 20 mg tablet 20 mg PO DAILY 02/06/25 02/06/25 Previous Rx's ?Medication ?Instructions ?Recorded gabapentin 100 mg capsule 100 mg PO TID #90 caps 07/23/18 diltiazem HCl 30 mg tablet 30 mg PO Q6H #120 tabs 07/26/21 warfarin 5 mg tablet 5 mg PO DAILY #30 tabs 07/26/21 tolterodine 2 mg capsule,extended 2 mg PO DAILY #90 caps 08/03/24 release 24 hr cefpodoxime 200 mg tablet 200 mg PO BID #14 tabs 08/08/24 ipratropium 0.5 mg-albuterol 3 mg 3 ml inhalation .nightly PRN 10/20/24 (2.5 mg base)/3 mL nebulization Cough, shortness of breath #90 mL soln vibegron 75 mg tablet 75 mg PO DAILY #90 tabs 12/02/24 cefdinir 300 mg capsule 300 mg PO BID #14 caps 12/04/24 Allergies Allergy/AdvReac Type Severity Reaction Status Date / Time fentanyl (FENTANYL) Allergy Severe HIVES, Verified 05/16/25 01:24 ITCHING iodine (IODINE) Allergy Severe RASH - Verified 05/16/25 01:24 TOPICAL AND IV CONTRAST shellfish derived (SHELLFISH Allergy Severe Abdominal Verified 05/16/25 01:24 DERIVED) Pain cyclobenzaprine Allergy Intermediate ITCHING Verified 05/16/25 01:24 (CYCLOBENZAPRINE) diclofenac (DICLOFENAC) Allergy Intermediate ITCHING Verified 05/16/25 01:24 methadone (METHADONE) Allergy Intermediate ITCHING Verified 05/16/25 01:24 hydromorphone (HYDROMORPHONE) Allergy Mild ITCHING Verified 05/16/25 01:24 hydroxyzine (HYDROXYZINE) Allergy Mild FEVER, Verified 05/16/25 01:24 SWEATS ibuprofen (IBUPROFEN) Allergy Unknown Verified 05/16/25 01:24 aspirin (ASPIRIN) AdvReac Severe STOMACH Verified 05/16/25 01:24 PAIN & HIVE W/325MG, CAN TAKE 81 MG solifenacin (From [facility]) AdvReac Unknown INCREASE Verified 05/16/25 01:24 PVR AND URINARY SX RACHEL AdvReac Unknown DOES NOT Uncoded 05/16/25 01:24 WORK Review of Systems Review of Systems ROS Unobtainable: All systems reviewed & are unremarkable except as noted in HPI and below Patient History Medical History Gout Cognitive impairment, mild, so stated Low back pain Constipation Essential tremor Atrial fibrillation HLD (hyperlipidemia) CAD (coronary artery disease), [place] coronary artery Anemia GERD (gastroesophageal reflux disease) Diabetes mellitus COPD (chronic obstructive pulmonary disease) HTN (hypertension) Diastolic CHF Surgical History H/O rotator cuff surgery H/O arthroscopic knee surgery History of back surgery H/O abdominal surgery Family History Mother Diabetes mellitus Cancer Father Diabetes mellitus Cancer Social History marital status: household members: spouse Smoking Status: Never smoker alcohol intake: never alcohol intake frequency: holidays/special occasions only Exam Narrative Exam Narrative: General: Patient appears to be in no acute distress, acting appropriately Head: normocephalic, atraumatic, HEENT: Pupils equal round reactive, eyes tracking well, neck supple, no JVD Heart: regular rate and rhythm, no murmurs, rubs, or gallops heard Lungs: Mild wheezes heard around lung base. Abdomen: soft , nontender, nondistended, positive bowel sounds, scars from multiple abdominal surgeries. Neurological: no focal neurological signs, moving all extremities well, alert and oriented x3, Psych: good judgment ,good insight, mood is normal. Initial Vital Signs Initial Vital Signs: Vital Signs Pulse Rate 88 05/16/25 01:22 Pulse Oximetry 95 05/16/25 01:22 Course Orders Ordered: ED Orders 05/16/25 01:36 XR chest 1V Stat EKG-12 Lead Stat 05/16/25 01:38 XR LSPINE 2-3 views [XR lumbar spine 2-3V] Stat 05/16/25 01:39 XR femur LT min 2V Stat XR femur RT min 2V Stat 05/16/25 01:52 Covid-19 + FLU A/B + RSV - PCR Stat 05/16/25 02:00 Complete Blood Count AUTO DIFF Stat Comprehensive Metabolic Panel Stat Lipase Stat Magnesium Stat NT-proBNP (BNP-Adult 18+) Stat PTT Partial Thromboplastin Chris Stat Prothrombin Time INR Stat Troponin & CK Cardiac Panel Stat Discontinued Medications Acetaminophen (Acetaminophen 325 Mg Tablet) 650 mg PO NOW ONE Stop: 05/16/25 01:39 Last Admin: 05/16/25 01:51 Dose: 650 mg Documented By: KAPIL Acetaminophen (Acetaminophen 325 Mg Tablet) 650 mg PO NOW ONE Stop: 05/16/25 06:26 Last Admin: 05/16/25 06:32 Dose: 650 mg Documented By: KAPIL Albuterol/Ipratropium (Albuterol/Ipratropium 3 Ml Ampul) 3 ml INH NOW ONE Stop: 05/16/25 01:37 Last Admin: 05/16/25 01:46 Dose: 3 ml Documented By: FERNIE Magnesium Sulfate (Magnesium Sulfate) 2 gm in 50 mls @ 150 mls/hr IV NOW ONE Stop: 05/16/25 02:46 Last Infusion: 05/16/25 03:11 Dose: Infused Documented By: KAPIL Co-signed By: AVERY Admin: 05/16/25 02:37 Dose: 150 mls/hr Documented By: AVERY Co-signed By: QUINCY Oxycodone HCl (Oxycodone Ir 5 Mg Tablet) 10 mg PO NOW ONE Stop: 05/16/25 02:44 Last Admin: 05/16/25 02:46 Dose: 10 mg Documented By: AVERY Oxycodone HCl (Oxycodone Ir 5 Mg Tablet) 5 mg PO NOW ONE Stop: 05/16/25 04:01 Last Admin: 05/16/25 04:07 Dose: 5 mg Documented By: KAPIL Oxycodone HCl (Oxycodone Ir 5 Mg Tablet) 5 mg PO NOW ONE Stop: 05/16/25 06:26 Last Admin: 05/16/25 06:32 Dose: 5 mg Documented By: KAPIL Reevaluation(s) Reevaluation #1: Upon re-evaluation, patient's pain is minimally improved as well as his breathing. Patient is on 2 L of O2 nasal cannula currently. He does use 2 L of nasal cannula nightly at home. Reevaluation #2: Upon re-evaluation, patient's pain is still persisting. Patient also failed the road test. Consultations Consultation #1: after discussion with hospitalist Dr. Her it was decided to admit the patient. Vital Signs Vital signs: Vital Signs - 8 hr 05/16/25 01:22 05/16/25 01:23 05/16/25 01:30 Temperature 100.4 F H Pulse Rate 88 63 Respiratory Rate 24 Blood Pressure 189/77 H 175/78 H Pulse Oximetry 95 96 Oxygen Delivery Method Room Air 05/16/25 01:30 05/16/25 01:51 05/16/25 01:52 Temperature 100.4 F H Pulse Rate 79 74 Respiratory Rate 24 Blood Pressure Pulse Oximetry 94 94 Oxygen Delivery Method Room Air 05/16/25 02:57 05/16/25 02:59 05/16/25 02:59 Temperature Pulse Rate 101 H 91 H Respiratory Rate 0 L Blood Pressure 146/65 H Pulse Oximetry 83 L 87 L Oxygen Delivery Method 05/16/25 03:00 05/16/25 03:00 05/16/25 03:11 Temperature Pulse Rate 90 Respiratory Rate 0 L Blood Pressure 149/70 H 163/74 H Pulse Oximetry 87 L Oxygen Delivery Method 05/16/25 03:11 05/16/25 03:30 05/16/25 03:31 Temperature Pulse Rate 94 H 89 91 H Respiratory Rate 14 32 H 32 H Blood Pressure Pulse Oximetry 94 96 96 Oxygen Delivery Method 05/16/25 03:31 05/16/25 04:00 05/16/25 04:00 Temperature Pulse Rate 93 H Respiratory Rate 26 H Blood Pressure 133/62 147/63 H Pulse Oximetry 94 Oxygen Delivery Method 05/16/25 04:10 05/16/25 04:30 05/16/25 04:31 Temperature 100 F H Pulse Rate 100 H Respiratory Rate 32 H Blood Pressure 155/68 H Pulse Oximetry Oxygen Delivery Method 05/16/25 04:31 05/16/25 05:00 05/16/25 05:01 Temperature Pulse Rate 102 H 93 H Respiratory Rate 34 H 30 H Blood Pressure 138/65 Pulse Oximetry 95 Oxygen Delivery Method 05/16/25 05:01 05/16/25 05:30 05/16/25 05:30 Temperature Pulse Rate 93 H 90 Respiratory Rate 30 H 26 H Blood Pressure 156/71 H Pulse Oximetry 96 96 Oxygen Delivery Method 05/16/25 06:00 05/16/25 06:01 05/16/25 06:01 Temperature Pulse Rate 103 H 94 H Respiratory Rate 30 H 31 H Blood Pressure 144/65 H Pulse Oximetry 97 97 Oxygen Delivery Method MDM - Fall Lab Data 05/16/25 02:00 05/16/25 02:00 Labs: Lab Results 05/16/25 05/16/25 Range/Units 01:52 02:00 WBC 6.1 (4.5-11.0) X10^3/uL RBC 3.64 L (4.5-5.9) X10^6/uL Hgb 11.0 L (13.5-17.5) g/dL Hct 32.6 L (41-53) % MCV 89.4 (80-100) fL MCH 30.3 (26-34) PG MCHC 33.9 (30-36) % RDW 17.3 H (11.6-14.8) % Plt Count 132 L (150-400) X10^3/uL Neut % (Auto) 79.1 H (50-75) % Lymph % (Auto) 9.4 L (25-40) % Desha % (Auto) 9.5 (3-14) % Eos % (Auto) 1.2 L (2-4) % Baso % (Auto) 0.8 (0-2) % Neut # (Auto) 4900 (0034-5471) /uL Lymph # (Auto) 600 L (8941-4923) /uL Desha # (Auto) 600 (0-900) /uL Eos # (Auto) 100 (0-450) /uL Baso # (Auto) 0 (0-100) /uL PT 18.9 H (9.4-12.5) SECONDS INR 1.7 H (0.9-1.3) APTT 34 (25.1-36.5) SECONDS Sodium 137 (137-145) mmol/L Potassium 4.4 (3.4-5.1) mmol/L Chloride 101 (98-107) mmol/L Carbon Dioxide 28 (22-32) mmol/L BUN 26 H (9-20) mg/dL Creatinine 1.11 (0.66-1.25) mg/dL Estimated GFR > 60 (>60) mL/min BUN/Creatinine Ratio 23.4 H (6-22) Glucose 159 H (70-99) mg/dL Calcium 9.4 (8.4-10.2) mg/dL Magnesium 1.3 L (1.6-2.3) mg/dL Total Bilirubin 0.7 (0.2-1.3) mg/dL AST 24 (17-59) IU/L ALT 16 (<50) IU/L Alkaline Phosphatase 63 (38-126) U/L Total Creatine Kinase 132 (55-170) U/L Troponin I < 0.012 (0.01-0.034) ng/mL NT-Pro-B Natriuret Pep 458 H (<450) pg/mL Total Protein 7.9 (6.3-8.2) g/dL Albumin 4.4 (3.5-5.0) g/dL Globulin 3.5 (1.7-4.1) g/dL Albumin/Globulin Ratio 1.3 (1.0-2.8) Lipase < 10 L (23-300) U/L SARS-CoV-2 (PCR) Positive H (Negative) Influenza A (RT-PCR) Flu a negative (NEGATIVE) Influenza B (RT-PCR) Flu b negative (NEGATIVE) RSV (PCR) Negative (Negative) Imaging Data lumbar xray: Radiologist's Impression: Limited exam considering surgical hardware penetration. Postsurgical findings with thoracolumbar sacral fusion with satisfactory alignment. No definite fracture is seen. xray right femur: Radiologist's Impression: Tricompartmental degenerative changes of the right knee and degenerative changes of the right femoral acetabular joint. No acute traumatic injuries identified. xray left femur: Radiologist's Impression: Degenerative changes of the left femoroacetabular joint and tricompartmental degenerative change of the left knee. No acute traumatic injuries identified. ECG Data Interpretation: EKG shows an undetermined rhythm, left axis deviation, right bundle branch block. Patient does have quite a few tremors and so a reliable EKG was difficult to attain. Previous EKG also showed a undetermined rhythm with a right bundle-branch block. He does have a history of atrial flutter. [facility] Narrative Medical decision making narrative: 80-year-old male who had a fall a few hours prior to arrival and was stuck on the ground until he can recently reach for a phone to call the paramedics. The patient arrives in severe back and bilateral hip pain. He also complains of some shortness of breath. X-rays did not reveal any acute fractures but his pain is intractable and the patient failed a road test and so it was decided to admit the patient under observation. Discharge Plan Departure Patient Disposition: Admitted as Observation Clinical Impression: Intractable back pain Admit Date/Time: 05/16/25 06:12 Admit Provider: Javon Cosby
--- NOTE | 2025-05-16 01:36 | DI.RAD.S_ITS ---
PROCEDURE: XR CHEST 1V INDICATIONS: Chest Pain TECHNIQUE: One view of the chest was acquired. COMPARISON: [facility], CR, XR CHEST 1V, 07/30/2021, 14:57. FINDINGS: Surgical changes and devices: Post fixation changes are noted throughout thoracic spine. Lungs and pleura: Mild pulmonary vascular congestion is likely present. No definite focal infiltrate. No pleural effusions or pneumothorax. Mediastinum: Mediastinal contours appear normal. Heart size is enlarged. Bones and chest wall: No suspicious bony lesions. Overlying soft tissues appear unremarkable. IMPRESSION: Cardiomegaly and mild congestion. No definite focal infiltrate. No pleural effusion or pneumothorax. Dictated by: Costa Grimm M.D. on 05/16/2025 at 8:01 Approved by: Costa Grimm M.D. on 05/16/2025 at 8:01
--- NOTE | 2025-05-16 01:36 | EKG_ITS ---
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
--- NOTE | 2025-05-16 01:37 | EKG_ITS ---
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
--- NOTE | 2025-05-16 01:38 | DI.RAD.S_ITS ---
PROCEDURE: XR LUMBAR SPINE 2-3V INDICATIONS: fall on lower back TECHNIQUE: 4 views of the lumbar spine were acquired. COMPARISON: [facility], CR, XR LUMBAR SPINE 2-3V, 07/26/2021, 21:05. FINDINGS: Bones: 5 [id number] vertebrae are present. There is extensive fixation of thoracic and lumbar spine with surgical hardware in place. Hardware positions are not significantly changed from 2020 study. No gross hardware loosening or failure. There is diffuse osteopenia. No obvious acute compression fracture or significant spondylolisthesis. Soft tissues: Overlying bowel gas pattern is normal. No suspicious soft tissue calcifications. IMPRESSION: Limited study due to diffuse osteopenia and presence of surgical hardware. No obvious hardware loosening or failure. No definite acute vertebral body compression fracture or significant spondylolisthesis. Dictated by: Costa Grimm M.D. on 05/16/2025 at 8:02 Approved by: Costa Grimm M.D. on 05/16/2025 at 8:05
--- NOTE | 2025-05-16 01:39 | DI.RAD.S_ITS ---
PROCEDURE: XR FEMUR LT MIN 2V INDICATIONS: fall TECHNIQUE: 4 views of the femur were acquired. COMPARISON: [facility], CR, XR FEMUR RT MIN 2V, 05/16/2025, 2:20. FINDINGS: Bones: No fractures or dislocations. Left hip and left knee joint osteoarthritic changes are seen. No evidence of avascular necrosis of femoral heads. No suspicious bony lesions. Soft tissues: No suspicious soft tissue calcifications or masses. Vascular calcifications are noted along medial aspect of left thigh. IMPRESSION: No acute left femoral fracture or dislocation. Left hip and left knee joint osteoarthritis. No evidence of avascular necrosis. Dictated by: Costa Grimm M.D. on 05/16/2025 at 8:09 Approved by: Costa Grimm M.D. on 05/16/2025 at 8:10
--- NOTE | 2025-05-16 01:39 | DI.RAD.S_ITS ---
PROCEDURE: XR FEMUR RT MIN 2V INDICATIONS: fall TECHNIQUE: 4 views of the femur were acquired. COMPARISON: None. FINDINGS: Bones: No fractures or dislocations. Right hip and right knee joint osteoarthritic changes are seen. No evidence of avascular necrosis of femoral head. No suspicious bony lesions. Soft tissues: No suspicious soft tissue calcifications or masses. IMPRESSION: No acute right femoral fracture or dislocation. Right hip and right knee joint osteoarthritis. No evidence of avascular necrosis. Dictated by: Costa Grimm M.D. on 05/16/2025 at 8:06 Approved by: Costa Grimm M.D. on 05/16/2025 at 8:09
[2025-05-16] MEDS: ALBUTEROL/IPRATROPIUM 3 ML AMPUL INH ×4 (01:46→23:48)
[2025-05-16] MEDS: ACETAMINOPHEN 325 MG TABLET 650 MG PO ×2 (01:51→06:32)
[2025-05-16 02:13] LABS: Add Manual Diff / Slide Review NO; Hematocrit 32.6 % (41-53); Hemoglobin 11.0 g/dL (13.5-17.5); Lymphocytes Absolute Auto 600 /uL (1100-4500); Mean Corpuscular HGB Conc 33.9 % (30-36); Mean Corpuscular Hemoglobin 30.3 PG (26-34); Mean Corpuscular Volume 89.4 fL (80-100); Platelet Count 132 X10^3/uL (150-400)
[2025-05-16 02:14] LABS: INR 1.7 (0.9-1.3); Prothrombin Time 18.9 SECONDS (9.4-12.5)
[2025-05-16 02:17] LABS: PTT Partial Thromboplastin Tim 34 SECONDS (25.1-36.5)
[2025-05-16 02:19] LABS: Alanine Aminotransferase 16 IU/L (<50); Albumin 4.4 g/dL (3.5-5.0); Albumin Globulin Ratio 1.3 (1.0-2.8); Alkaline Phosphatase 63 U/L (38-126); Blood Urea Nitrogen 26 mg/dL (9-20); Calcium 9.4 mg/dL (8.4-10.2); Carbon Dioxide 28 mmol/L (22-32); Chloride 101 mmol/L (98-107); Creatine Kinase 132 U/L (55-170); Estimated Glomerular Filt Rate > 60 mL/min (>60); Globulin 3.5 g/dL (1.7-4.1); Glucose 159 mg/dL (70-99); HEMOLYSIS < 15 (0-50); Magnesium 1.3 mg/dL (1.6-2.3); Potassium 4.4 mmol/L (3.4-5.1); Sodium 137 mmol/L (137-145); Total Protein 7.9 g/dL (6.3-8.2)
[2025-05-16 02:21] LABS: Lipase < 10 U/L (23-300)
[2025-05-16 02:30] LABS: NT-proBNP (BNP-Adult 18+) 458 pg/mL (<450); Troponin I < 0.012 ng/mL (0.01-0.034)
[2025-05-16] MEDS: MAGNESIUM SULFATE 2 GM/50 ML PIGGYBACK IV (02:37)
[2025-05-16 02:44] LABS: Influenza A - CEPHEID Flu A NEGATIVE (NEGATIVE); Influenza B - CEPHEID Flu B NEGATIVE (NEGATIVE)
[2025-05-16 02:51] LABS: COVID-19 CEPHEID 4-PLEX PCR POSITIVE (Negative)
--- NOTE | 2025-05-16 03:20 | PC.NURSE ---
Pt cleaned and changed into new brief
--- NOTE | 2025-05-16 07:20 | PM.HP.1 ---
History of Present Illness History of Present Illness Date Patient Seen: 05/16/25 Time Patient Seen: 06:30 Chief complaint: hip/back pain after fall Narrative: 80 y/o with complex PMH of CHF, HTN, CAD, COPD, A-fib, DM, anemia, essential tremor, gout, constipation, and LBP, presented to ED after he fell at home. Complaining on worsened low back pain, unable to bear weight and walk. He takes oxycodone at home and repeated doses in ED unable to relive pain enough. ED workup w/o significant injuries. Covid positive w/o respiratory symptoms. on 2 L of oxygen at night chronically. Placed in observation for pain control and PT assessment. [facility] Medical History (Updated 05/16/25 @ 07:34 by Javon Her MD) Gout Cognitive impairment, mild, so stated Low back pain Constipation Essential tremor Atrial fibrillation HLD (hyperlipidemia) CAD (coronary artery disease), [place] coronary artery Anemia GERD (gastroesophageal reflux disease) Diabetes mellitus COPD (chronic obstructive pulmonary disease) HTN (hypertension) Diastolic CHF Surgical History H/O rotator cuff surgery H/O arthroscopic knee surgery History of back surgery H/O abdominal surgery Family History Mother Diabetes mellitus Cancer Father Diabetes mellitus Cancer Social History marital status: household members: spouse Smoking Status: Never smoker alcohol intake: never Meds Home Medications and Allergies Home Medications ?Medication ?Instructions ?Recorded ?Confirmed ?Type albuterol sulfate 90 mcg/actuation 2 puff INH Q6HP PRN Shortness Of 05/20/13 12/02/24 History aerosol inhaler (Ventolin HFA) Breath #0 puffs polyethylene glycol 3350 17 17 gm PO QDAYP PRN Constipation ##0 05/20/13 12/02/24 History gram/dose oral powder (Miralax) acetaminophen 500 mg capsule 2 cap PO TID 06/07/18 12/02/24 History aspirin 81 mg tablet,delayed 81 mg PO 0630 06/07/18 12/02/24 History release atorvastatin 40 mg tablet 1 tab PO BEDTIME 06/07/18 12/02/24 History cholecalciferol (vitamin D3) 25 1,000 unit PO QAM 06/07/18 12/02/24 History mcg (1,000 unit) capsule (Vitamin D3) docusate sodium 100 mg capsule 100 mg PO QAM 06/07/18 12/02/24 History doxazosin 8 mg tablet 8 mg PO 0630 06/07/18 12/02/24 History nitroglycerin 0.4 mg sublingual 0.4 mg sublingual Q5-15M PRN Chest 06/07/18 12/02/24 History tablet Pain pantoprazole 20 mg tablet,delayed 20 mg PO QAM 06/07/18 12/02/24 History release propranolol 60 mg tablet 1 tab PO TID 06/07/18 12/02/24 History levothyroxine 100 mcg tablet 300 mcg PO QAM 07/20/18 12/02/24 History gabapentin 100 mg capsule 100 mg PO TID #90 caps 07/23/18 12/02/24 Rx allopurinol 100 mg tablet 100 mg PO QAM 07/23/21 12/02/24 History duloxetine 60 mg capsule,delayed 60 mg PO BEDTIME 07/23/21 12/02/24 History release oxycodone 5 mg tablet 5 mg PO Q6HR 07/23/21 12/02/24 History diltiazem HCl 30 mg tablet 30 mg PO Q6H #120 tabs 07/26/21 12/02/24 Rx warfarin 5 mg tablet 5 mg PO DAILY #30 tabs 07/26/21 12/02/24 Rx tolterodine 2 mg capsule,extended 2 mg PO DAILY #90 caps 08/03/24 12/02/24 Rx release 24 hr cefpodoxime 200 mg tablet 200 mg PO BID #14 tabs 08/08/24 12/02/24 Rx ipratropium 0.5 mg-albuterol 3 mg 3 ml inhalation .nightly PRN 10/20/24 12/02/24 Rx (2.5 mg base)/3 mL nebulization Cough, shortness of breath #90 mL soln vibegron 75 mg tablet 75 mg PO DAILY #90 tabs 12/02/24 12/02/24 Rx cefdinir 300 mg capsule 300 mg PO BID #14 caps 12/04/24 Rx dulaglutide 0.75 mg/0.5 mL 0.75 mg SUBCUT 02/06/25 02/06/25 History subcutaneous pen injector (Trulicity) insulin glargine 100 unit/mL (3 unit SUBCUT 02/06/25 02/06/25 History mL) subcutaneous pen (Lantus Solostar U-100 Insulin) isosorbide mononitrate 30 mg 30 mg PO DAILY 02/06/25 02/06/25 History tablet,extended release 24 hr metformin 500 mg tablet,extended 1,000 mg PO BID 02/06/25 02/06/25 History release 24 hr torsemide 20 mg tablet 20 mg PO DAILY 02/06/25 02/06/25 History Allergies Allergy/AdvReac Type Severity Reaction Status Date / Time fentanyl (FENTANYL) Allergy Severe HIVES, Verified 05/16/25 01:24 ITCHING iodine (IODINE) Allergy Severe RASH - Verified 05/16/25 01:24 TOPICAL AND IV CONTRAST shellfish derived (SHELLFISH Allergy Severe Abdominal Verified 05/16/25 01:24 DERIVED) Pain cyclobenzaprine Allergy Intermediate ITCHING Verified 05/16/25 01:24 (CYCLOBENZAPRINE) diclofenac (DICLOFENAC) Allergy Intermediate ITCHING Verified 05/16/25 01:24 methadone (METHADONE) Allergy Intermediate ITCHING Verified 05/16/25 01:24 hydromorphone (HYDROMORPHONE) Allergy Mild ITCHING Verified 05/16/25 01:24 hydroxyzine (HYDROXYZINE) Allergy Mild FEVER, Verified 05/16/25 01:24 SWEATS ibuprofen (IBUPROFEN) Allergy Unknown Verified 05/16/25 01:24 aspirin (ASPIRIN) AdvReac Severe STOMACH Verified 05/16/25 01:24 PAIN & HIVE W/325MG, CAN TAKE 81 MG solifenacin (From [facility]) AdvReac Unknown INCREASE Verified 05/16/25 01:24 PVR AND URINARY SX RACHEL AdvReac Unknown DOES NOT Uncoded 05/16/25 01:24 WORK Review of Systems Review of Systems Narrative: General - weak, no chills RS - w/o cough CVS - w/o chest pain GI - chronically constipated MSK - LBP, both hips hurt Exam Vital Signs (past 8 hours): - 05/16/25 01:22 05/16/25 01:23 05/16/25 01:30 Temperature 100.4 F H Pulse Rate 88 63 Respiratory Rate 24 Blood Pressure 189/77 H 175/78 H Pulse Oximetry 95 96 Oxygen Delivery Method Room Air 05/16/25 01:30 05/16/25 01:51 05/16/25 01:52 Temperature 100.4 F H Pulse Rate 79 74 Respiratory Rate 24 Blood Pressure Pulse Oximetry 94 94 Oxygen Delivery Method Room Air 05/16/25 02:57 05/16/25 02:59 05/16/25 02:59 Temperature Pulse Rate 101 H 91 H Respiratory Rate 0 L Blood Pressure 146/65 H Pulse Oximetry 83 L 87 L Oxygen Delivery Method 05/16/25 03:00 05/16/25 03:00 05/16/25 03:11 Temperature Pulse Rate 90 Respiratory Rate 0 L Blood Pressure 149/70 H 163/74 H Pulse Oximetry 87 L Oxygen Delivery Method 05/16/25 03:11 05/16/25 03:30 05/16/25 03:31 Temperature Pulse Rate 94 H 89 91 H Respiratory Rate 14 32 H 32 H Blood Pressure Pulse Oximetry 94 96 96 Oxygen Delivery Method 05/16/25 03:31 05/16/25 04:00 05/16/25 04:00 Temperature Pulse Rate 93 H Respiratory Rate 26 H Blood Pressure 133/62 147/63 H Pulse Oximetry 94 Oxygen Delivery Method 05/16/25 04:10 05/16/25 04:30 05/16/25 04:31 Temperature 100 F H Pulse Rate 100 H Respiratory Rate 32 H Blood Pressure 155/68 H Pulse Oximetry Oxygen Delivery Method 05/16/25 04:31 05/16/25 05:00 05/16/25 05:01 Temperature Pulse Rate 102 H 93 H Respiratory Rate 34 H 30 H Blood Pressure 138/65 Pulse Oximetry 95 Oxygen Delivery Method 05/16/25 05:01 05/16/25 05:30 05/16/25 05:30 Temperature Pulse Rate 93 H 90 Respiratory Rate 30 H 26 H Blood Pressure 156/71 H Pulse Oximetry 96 96 Oxygen Delivery Method 05/16/25 06:00 05/16/25 06:01 05/16/25 06:01 Temperature Pulse Rate 103 H 94 H Respiratory Rate 30 H 31 H Blood Pressure 144/65 H Pulse Oximetry 97 97 Oxygen Delivery Method 05/16/25 06:30 05/16/25 06:31 05/16/25 06:31 Temperature 99.7 F H Pulse Rate 96 H 94 H Respiratory Rate 27 H 20 Blood Pressure 174/70 H Pulse Oximetry 97 97 Oxygen Delivery Method 05/16/25 07:00 05/16/25 07:00 Temperature Pulse Rate 88 Respiratory Rate 30 H Blood Pressure 138/63 Pulse Oximetry 97 Oxygen Delivery Method Oxygen Delivery Method Room Air Narrative Exam Narrative: General - in no distress, somnolent HEENT - atraumatic, hearing loss, supple neck, EOMI MSK - w/o deformities GI - w/o distension or tenderness Neuro - essential tremor Psych - cognitive deficits Objective Imaging LS, femur xray: My impression: w/o obvious fractures Radiologist's impression: pending Labs 05/16/25 02:00 05/16/25 02:00 Labs: Laboratory Results - last 24 hr 05/16/25 05/16/25 01:52 02:00 WBC 6.1 RBC 3.64 L Hgb 11.0 L Hct 32.6 L MCV 89.4 MCH 30.3 MCHC 33.9 RDW 17.3 H Plt Count 132 L Neut % (Auto) 79.1 H Lymph % (Auto) 9.4 L [place] % (Auto) 9.5 Eos % (Auto) 1.2 L Baso % (Auto) 0.8 Neut # (Auto) 4900 Lymph # (Auto) 600 L [place] # (Auto) 600 Eos # (Auto) 100 Baso # (Auto) 0 PT 18.9 H INR 1.7 H APTT 34 Sodium 137 Potassium 4.4 Chloride 101 Carbon Dioxide 28 BUN 26 H Creatinine 1.11 Estimated GFR > 60 BUN/Creatinine Ratio 23.4 H Glucose 159 H Calcium 9.4 Magnesium 1.3 L Total Bilirubin 0.7 AST 24 ALT 16 Alkaline Phosphatase 63 Total Creatine Kinase 132 Troponin I < 0.012 NT-Pro-B Natriuret Pep 458 H Total Protein 7.9 Albumin 4.4 Globulin 3.5 Albumin/Globulin Ratio 1.3 Lipase < 10 L SARS-CoV-2 (PCR) Positive H Influenza A (RT-PCR) Flu a negative Influenza B (RT-PCR) Flu b negative RSV (PCR) Negative Assessment & Plan Assessment and plan (1) Intractable back pain: Status: Acute (2) COPD (chronic obstructive pulmonary disease): Qualifiers: COPD type: unspecified COPD Qualified Code(s): J44.9 - Chronic obstructive pulmonary disease, unspecified Status: Acute (3) BPH loc w urin obs/LUTS: Status: Acute (4) Atrial flutter: Status: Acute (5) Chronic renal failure, stage 3 (moderate): Problem details: Will continue to monitor Status: Acute Assessment & Plan narrative: LBP - w/o significant injuries - tolerant of narcotics - oxycodone prn - PT assessment HFpEF / A-fib / CAD - ASA, statin, Imdur, Torsemide, warfarin per pharmacy BPH with LUTS - doxazosin COPD - albuterol - oxygen prn Covid + - supportive care Hypothyroidism - levothyroxine CKD stage 3a - at baseline ERssential tremor - propranolol Depression - Cymbalta Patienty consented to audio-visual telemedicine encounter. Patient located at [place], [place], provider located in [place]. Time-Based Coding :: [TOTAL MINUTES] spent with patient and on the chart (including review of chart, obtaining history, exam, reviewing outside data, placing orders, documenting exam and treatment plan, and counseling patient) on [DATE].
[2025-05-16 09:26] LABS: Add Manual Diff / Slide Review NO; Hematocrit 29.8 % (41-53); Hemoglobin 10.0 g/dL (13.5-17.5); Lymphocytes Absolute Auto 800 /uL (1100-4500); Mean Corpuscular HGB Conc 33.6 % (30-36); Mean Corpuscular Hemoglobin 30.2 PG (26-34); Mean Corpuscular Volume 89.8 fL (80-100); Platelet Count 110 X10^3/uL (150-400)
[2025-05-16 09:37] LABS: Blood Urea Nitrogen 21 mg/dL (9-20); Calcium 8.7 mg/dL (8.4-10.2); Carbon Dioxide 27 mmol/L (22-32); Chloride 102 mmol/L (98-107); Estimated Glomerular Filt Rate > 60 mL/min (>60); Glucose 134 mg/dL (70-99); HEMOLYSIS < 15 (0-50); Potassium 3.9 mmol/L (3.4-5.1); Sodium 137 mmol/L (137-145)
[2025-05-16] MEDS: PROPRANOLOL 10 MG TABLET 60 MG PO ×2 (09:37→15:34)
[2025-05-16] MEDS: GABAPENTIN 100 MG CAPSULE PO ×3 (09:38→20:36)
[2025-05-16] MEDS: TORSEMIDE 10 MG TABLET 20 MG PO (09:38)
[2025-05-16] MEDS: ISOSORBIDE MONONITRATE ER 30 MG TABLET PO (09:38)
[2025-05-16] MEDS: LEVOTHYROXINE 100 MCG TABLET 300 MCG PO (10:11)
[2025-05-16] MEDS: PANTOPRAZOLE DR 20 MG TABLET PO (10:11)
--- NOTE | 2025-05-16 10:25 | PT.IIE ---
Current Diagnoses Unspecified atrial flutter (05/16/25) Chronic obstructive pulmonary disease, unspecified (05/16/25) Dorsalgia, unspecified (05/16/25) Chronic kidney disease, stage 3 unspecified (05/16/25) Benign prostatic hyperplasia with lower urinary tract symptoms (05/16/25) Surgical History (Last Reviewed 12/02/24 @ 18:33 by Turner Escobar DO) H/O abdominal surgery H/O arthroscopic knee surgery H/O rotator cuff surgery History of back surgery Medical History (Last Updated 05/16/25 @ 07:34 by Javon Her MD) Anemia Atrial fibrillation CAD (coronary artery disease), [place] coronary artery Cognitive impairment, mild, so stated Constipation COPD (chronic obstructive pulmonary disease) Diabetes mellitus Diastolic CHF Essential tremor GERD (gastroesophageal reflux disease) Gout HLD (hyperlipidemia) HTN (hypertension) Low back pain Physical Therapy Inpatient Evaluation/Re-Eval M1 PT/OT-IP Prior Functional Status Start: 05/16/25 12:17 Freq: NEEDED Status: Active Protocol: Document 05/16/25 10:25 AB (Rec: 05/16/25 12:32 AB [id number]) Medical Review Prior Functional Status Medical History Yes Reviewed Communication able to make needs known Mobility and Gait pt stated that he was modified indpeendent with all mobilities and ambulation using a 4WW but occasionally uses a SPC only for short distance ambulation; pt with h/o falls and stated that he had 6 falls for the last 2 months Social History Household Members spouse Living Arrangements House Number of Floors ( One Floor Floors) Number of Stairs To has 3 steps wide bilateral rails and can only hold on Enter/Railing? to 1 rail at a time Home Environment Standard Height Toilet,Tub/Shower Home Equipment Four Wheel Walker,Straight Cane,Shower Seat with Backrest,Hand Held Shower,Grab Bars Near Toilet,Grab Bars In Shower Additional Social pt lives with spouse but spouse is currently also History Comment admitted in the hospital for Covid M2 PT-IP Current Condition Start: 05/16/25 12:17 Freq: NEEDED Status: Active Protocol: Document 05/16/25 10:25 AB (Rec: 05/16/25 12:32 AB [id number]) Physical Therapy Current Condition Current Condition Evaluation Date 05/16/25 Treatment Diagnosis fall; Covid; difficulty in walking Onset Date 05/16/25 M3 PT-IP Subjective Start: 05/16/25 12:17 Freq: NEEDED Status: Active Protocol: Document 05/16/25 10:25 AB (Rec: 05/16/25 12:32 AB [id number]) Subjective Physical Therapy Visit Type Type Initial Evaluation Visit Start Time 10:25 Visit Stop Time 11:00 Number of [place] [employer]ER Visits 0 Physical Therapy Visit Comments Patient Comments agreeable to do PT Therapy Pain Assessment Pain When Pain Assessed At Rest Pain Present Pain Present Pain Reported Location Bilateral Hip Intensity 8 Scale Used Numeric (0 - 10) Pain Management Distraction,Modification of Treatment,Re-positioning Techniques Back Intensity 8 Scale Used Numeric (0 - 10) Pain Behaviors Guarding,Holding Area Pain Management Modification of Treatment,Re-positioning Techniques M4 PT-IP Mobility and Gait Start: 05/16/25 12:17 Freq: NEEDED Status: Active Protocol: Document 05/16/25 10:25 AB (Rec: 05/16/25 12:32 AB [id number]) PT-Bed Mobility Assessment Supine to Sit Supine to Sit Maximum Assistance,1 Person Assistance,2 Person Assistance,Bedrails Sit to Supine Sit to Supine Maximum Assistance,2 Person Assistance,Bedrails Scooting Scooting to Edge of Maximum Assistance Bed PT-Transfer Assessment Sit to and From Stand Sit to and from Maximum Assistance,2 Person Assistance,Use of Upper Stand Extremities Equipment Transfer Assistive Gait Belt,Front Wheeled Walker Device Orthotic/Prosthetic No Devices or Brace: Comments Mobility Comments pt in bed and agreeable to do PT. obtained PLOF and home set up. BP: 134/58 O2 sat with 2L/min O2:95%. completed supine to sit with HOB elevated max A x 1-2 and max cues. pt also used bed rail to assist. able to sit on EOB max A with increase retrolean and needing constant cues to not lean back. max A for scooting to EOB. max a x 2 for sit to stand on EOB and pt ambulated ~ 20 ft max A x 2 and max cues. assisted pt back to bed max Ax 2 and max cues. positioned pt in bed. call light and table placed within reach. informed pt regarding SNF rehab but pt refusing. pt stated will be able to assist him. pt's spouse is currently also admitted in the hospital. Gait Assessment Gait Gait Assistance Maximum Assistance,2 Person Assist Required: Distance (Feet) 20 Able to Maintain Yes Weight Bearing Status During Gait Assistive Devices Assistive Device Gait Belt,Front Wheeled Walker Orthotic/Prosthetic No Devices or Brace: Gait Deviations General Gait Pattern Antalgic,Decreased Stride Length,Decreased Feet Clearance,Step-to Gait,Wide Based Gait Factors Limiting Gait Function Factors Limiting Decreased Activity Tolerance,Decreased Sensation, Gait Function Decreased Strength,Difficulty Following Directions, Limited Range of Motion,Pain,Poor Balance,Poor Safety Awareness PT-Balance Assessment Sitting Balance and Reactions Static Sitting Poor Balance Ability Dynamic Sitting Poor Balance Ability Standing Balance and Reactions Static Standing Poor Balance Ability Dynamic Standing Poor Balance Ability Device Used FWW M5 PT-IP Objective Assessments Start: 05/16/25 12:17 Freq: NEEDED Status: Active Protocol: Document 05/16/25 10:25 AB (Rec: 05/16/25 12:32 AB [id number]) Orientation Orientation/Cognition Level of Alertness Alert Orientation Name,Place,Situation Language Function Hard of Hearing Ability Safety Awareness Decreased Safety Awareness Memory Description Short Term Impaired Strength Lower Extremity Strength Assessment Within Functional Limits Muscle Tone Muscle Tone WNL Yes M6 PT-IP Treatment Start: 05/16/25 12:17 Freq: NEEDED Status: Active Protocol: Document 05/16/25 10:25 AB (Rec: 05/16/25 12:32 AB [id number]) Physical Therapy Treatment Education Education Provided Safety M7 PT-IP Assessment and Plan Start: 05/16/25 12:17 Freq: NEEDED Status: Active Protocol: Document 05/16/25 10:25 AB (Rec: 05/16/25 12:32 AB [id number]) PT Summary Assessment and Plan Potential Rehabilitation Fair Potential Status of Condition Evolving at Evaluation Summary Impairments Pain,ROM,Strength,Balance,Coordination,Sensation,Tone, Cognition,Bed Mobility,Transfers,Gait,Activity Tolerance Assessment Summary pt is an 80 y/o M s/p fall and with c/o back pain. pt also found to have COVID. pt requiring max A x 2 with all mobilities and ambulation using FWW. pt will require 24/7 assist and will benefit from SNF. pt refusing to go to SNF and stated that spouse will be able to assist him but spouse currently is also admitted here in the hospital. informed correctional case manager and requested OT eval order. Goals Bed Mobility Goal Minimal Assistance Transfer Goal Minimal Assistance,Front Wheeled Walker Gait Goal Minimal Assistance,Front Wheel Walker Gait Distance 50 Other Goals improve bed mobility, transfers, ambulation using FWW SBA ~ 100 ft up/down 3 steps 1 rail SBA Days to Meet Goals 10 Frequency of Treatment Frequency Of Once a Day Treatment Treatment Plan Physical Therapy Bed Mobility Training,Transfer Training,Gait Training, Treatment Plan Therapeutic Exercise,Balance Retraining,Discharge Planning,Hot or Cold Pack,Neuromuscular Re-ed, Coordination Retraining Precautions Other Precautions falls; Covid droplet precautions Recommendations To Nursing Amount of Assist 2 Person Assist Needed Discharge Recommendations PT Discharge SNF Rehab Recommendations Equipment Needed for FWW if pt goes home Home Before Discharge Transportation Needs Private Vehicle,Wheelchair/Cabulance at Discharge - PT assist 2
--- NOTE | 2025-05-16 13:25 | OT.IP.EVAL ---
Current Diagnoses Unspecified atrial flutter (05/16/25) Chronic obstructive pulmonary disease, unspecified (05/16/25) Dorsalgia, unspecified (05/16/25) Chronic kidney disease, stage 3 unspecified (05/16/25) Benign prostatic hyperplasia with lower urinary tract symptoms (05/16/25) Past Medical History (Last Updated 05/16/25 @ 07:34 by Javon Her MD) Anemia Atrial fibrillation CAD (coronary artery disease), [place] coronary artery Cognitive impairment, mild, so stated Constipation COPD (chronic obstructive pulmonary disease) Diabetes mellitus Diastolic CHF Essential tremor GERD (gastroesophageal reflux disease) Gout HLD (hyperlipidemia) HTN (hypertension) Low back pain Surgical History (Last Reviewed 12/02/24 @ 18:33 by Turner Escobar DO) H/O abdominal surgery H/O arthroscopic knee surgery H/O rotator cuff surgery History of back surgery Occupational Therapy Inpatient Evaluation/Re-Eval M1 PT/OT-IP Prior Functional Status Start: 05/16/25 12:17 Freq: NEEDED Status: Active Protocol: Document 05/16/25 13:33 [facility] (Rec: 05/16/25 13:52 [facility] Desktop) Medical Review Prior Functional Status Medical History Yes Reviewed Communication able to make needs known Mobility and Gait pt stated that he was modified indpeendent with all mobilities and ambulation using a 4WW but occasionally uses a SPC only for short distance ambulation; pt with h/o falls and stated that he had 6 falls for the last 2 months Activities of Daily Pt insist that he does all his ADL needs and Living and IADL's assist with IADL needs. Pt states no longer drives as his will not let him. Prior Functional Both pt and his sleep in lift recliners. Pt's Level (Other details in also here in the hospital with COVID+. ) Social History Household Members spouse Living Arrangements House Number of Floors ( One Floor Floors) Number of Stairs To has 3 steps wide bilateral rails and can only hold on Enter/Railing? to 1 rail at a time Home Environment Standard Height Toilet,Tub/Shower Home Equipment Four Wheel Walker,Straight Cane,Shower Seat with Backrest,Hand Held Shower,Grab Bars Near Toilet,Grab Bars In Shower Additional Social pt lives with spouse but spouse is currently also History Comment admitted in the hospital for Covid M2 OT-IP Current Condition Start: 05/16/25 13:32 Freq: Status: Active Protocol: Document 05/16/25 13:33 [facility] (Rec: 05/16/25 13:52 [facility] Desktop) Occupational Therapy Current Condition Current Condition Evaluation Date 05/16/25 Treatment Diagnosis Frequent falls, COVID+ Diagnosis Onset Date 05/16/25 M3 OT- IP Subjective and Pain Start: 05/16/25 13:32 Freq: Status: Active Protocol: Document 05/16/25 13:33 [facility] (Rec: 05/16/25 13:52 [facility] Desktop) OT- Subjective Occupational Therapy Visit Type Type Initial Evaluation Visit Start Time 12:55 Visit Stop Time 13:25 Occupational Therapy Visit Comments Patient Comments Pt wanting to use the BSC. Patient/Caregiver Pt insistent to go home. Goals OT Pain Assessment Pain When Pain Assessed During Mobility Pain Present Pain Present Pain Reported Location Back Pain Behaviors Facial Grimacing M4 OT- IP ADL's Start: 05/16/25 13:32 Freq: Status: Active Protocol: Document 05/16/25 13:33 [facility] (Rec: 05/16/25 13:52 [facility] Desktop) OT [id number] Comments OT Self-Feeding Not at meal time. Comments OT ADL-Grooming Comments OT Grooming Comments Not performed. OT ADL-Oral Care Comments Oral Care Comments Not performed. OT ADL-Dressing General Eval Lower Body Dressing Maximum Assistance Ability Areas Needing Underpants/Brief Assistance OT ADL-Toileting General Evaluation Toileting Ability Maximum Assistance Areas Needing Manage Clothing,Perform Perineal Hygiene Assistance Comments OT Toileting Pt able to sit on the BSC after MAXAx2 with FWW to Comments transfer with from the bed. OT ADL-Bathing Comments OT Bathing Comments Not performed. M5 OT- IP IADL's Start: 05/16/25 13:32 Freq: Status: Active Protocol: Document 05/16/25 13:33 [facility] (Rec: 05/16/25 13:52 [facility] Desktop) OT-Instrumental Activities of Daily Living Home Safety Awareness Awareness of Need Decreased Awareness for Assistance at Home Home Safety Comments Pt insistent that he and his will be able to handle it at home. Pt insistent of not going to skilled rehab. Pt however open to hiring assist at home. Medication Management Medication Caregiver Administers Management Money Management Money Management Caregiver Provides Assistance Meal Preparation Meal Preparation Caregiver Provides Assist Insurance Policy Issue Clerk Insurance Policy Issue Clerk Caregiver Provides Assist M6 OT- IP Functional Cognition Start: 05/16/25 13:32 Freq: Status: Active Protocol: Document 05/16/25 13:33 [facility] (Rec: 05/16/25 13:52 [facility] Desktop) Cognitive Factors Limiting Selfcare Function Cognitive Ability Level of Alertness Alert Patient Orientation Name,Place,Situation Attention Span Capable of Focused Attention,Capable of Sustained Ability Attention Ability to Follow Able to Follow One Step Commands Commands Cognitive Comments Cognitive Assessment Pt able to follow commands for ADL and mobility needs. Comments Pt is very insistent on going home versus skilled rehab . OT- Vision and Hearing OT- Hearing Assessment OT- Hearing WFL Assessment OT- Vision Assessment Visual Acuity WFL Visual Attentiveness WFL Occular Pursuits WFL M7 OT- IP Mobility and Balance Start: 05/16/25 13:32 Freq: Status: Active Protocol: Document 05/16/25 13:33 [facility] (Rec: 05/16/25 13:52 [facility] Desktop) OT- Bed Mobility Assessment Supine to Sit Supine to Sit Assist Maximum Assistance,2 Person Assistance,Bedrails Sit to Supine Sit to Supine Assist Maximum Assistance,2 Person Assistance Scooting Scooting to Edge of Moderate Assistance Bed OT-Transfer Assessment Sit to and From Stand Sit to and from Maximum Assistance,2 Person Assistance Stand Transfers Transfer Ability Maximum Assistance,2 Person Assistance Technique Transfer Destination Bed,Chair Transfer Technique Stand Step Pivot Devices Transfer Assistive Gait Belt,Front Wheeled Walker Devices Comments Mobility Comments MAX AX 2 to get to the edge of the bed. MAX AX 2 to stand to the FWW and tends to lean posteriorly. Once on his feet and balanced MODA 1-2 person with FWW to walk around the bed and MAX AX 2 to get back to bed. 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 M8 OT- IP Objective Assessments Start: 05/16/25 13:32 Freq: Status: Active Protocol: Document 05/16/25 13:33 [facility] (Rec: 05/16/25 13:52 [facility] Desktop) OT Gross Range of Motion Upper Extremity Range of Motion Assessment Within Functional Limits OT Strength Upper Extremity Strength Assessment Within Functional Limits OT- Coordination Assessment Comments Coordination Right hand tremors. Comments M9 OT- IP Assessment and Plan Start: 05/16/25 13:32 Freq: Status: Active Protocol: Document 05/16/25 13:33 [facility] (Rec: 05/16/25 13:52 [facility] Desktop) OT Summary Assessment and Plan Potential Rehabilitation Good Potential Analytic Complexity Moderate at Evaluation Summary OT Impairments Pain,Strength,Balance,Functional Mobility,Self-Feeding, Grooming,Dressing,Toileting,Bathing,Toilet Transfers, Shower Transfers,Activity Tolerance Progress Towards Slow Progress due to Pain,Slow Progress due to Medical Goals Issues,Slow Progress due to Activity Tolerance Assessment Summary Pt MOD complexity and here due to COVID+ and frequent falls, 6 falls in the last 2 months. Pt at this time needing MAX AX 2 for bed mobility and transfers with FWW. Pt needing extensive assist for toileting needs as well today. Pt adamant of not going to skilled rehab and states to hire assist if needed. Pt's also in the hospital with COVID+. Goals Self-Feeding Goal Independent Grooming Goal Independent Dressing Goal Independent Toileting Goal Independent Toilet Transfer Goal Independent Shower Transfer Goal Independent Days to Meet Goals 20 Frequency of Treatment Other frequency 5x/week Treatment Plan OT Treatment Plan ADL Training,Functional Cognition Training,Functional Mobility,Patient/Family Education,Discharge Planning Other Treatment Standing ADL's at sink with FWW/4ww MODA . Recommendations and Next Treatment Focus Discharge Recommendations OT Discharge SNF Rehab Recommendations Transportation Needs Wheelchair/Cabulance at Discharge
--- NOTE | 2025-05-16 13:36 | EKG_ITS ---
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
--- NOTE | 2025-05-16 15:00 | PM.HP.1 ---
History of Present Illness History of Present Illness Date Patient Seen: 05/16/25 Chief complaint: hip/back pain after fall Narrative: Chief complaint: Weakness with ground level fall History of present illness: 05/16: 80 year old male who tested positive for COPD and his is hospitalized with COVID pneumonia presents to the ED for a fall over his lower back due to weakness and increasing shortness for breath and reduced activity tolerance. . He denies any syncopal episode. He was just able to reach the telephone to be able to call the paramedics to come in. He denies any injury to his head or neck area. His complaints currently are in the lower back area and bilateral hip area. He also complains of some shortness of breath had his was recently diagnosed with COVID. His vital signs did show a low-grade fever. The patient also has quite a few tremors at baseline. No other symptoms. 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 has been having progressive weakness shortness for breath since he was admitted to the his oxygenation has dropped to 85% Chest x-ray very difficult to interpret because of morbid obesity could indicate diffuse interstitial airspace disease Review of systems: Two days of increasing weakness and dyspnea No chest pain or palpitations No syncope Increased fatigue No nausea vomiting Worsening appetite The paresthesia or paresis Physical exam: Morbidly obese and chronically ill Dusky pallor with early central cyanosis Heart sounds nearly inaudible Lungs sounds nearly in our Obese abdomen 3+ lower extremity edema For objective laboratory and imaging please see the bottom of the note: Assessment and plan: COVID pneumonia with increasing weakness and fall now unable to get out of bed Decadron remdesivir Ceftriaxone azithromycin Supplemental oxygenation Chronic medical problems: Atrial fibrillation HLD (hyperlipidemia) CAD (coronary artery disease), [place] coronary artery Anemia GERD (gastroesophageal reflux disease) Diabetes mellitus COPD (chronic obstructive pulmonary disease) HTN (hypertension) Diastolic CHF DVT prophylaxis: Covered with warfarin Code status: Full code blue Disposition: Convert to inpatient status anticipate 2-3 days hospitalization perhaps longer depending on response Time based billin minutes were this patient including [id number] patient evaluation physical examination previous medical records complication with emergency provider review of objective laboratory and imaging findings orders and discussion of treatment plan with and nursing staff [facility] Medical History (Updated 05/16/25 @ 07:34 by Javon Her MD) Gout Cognitive impairment, mild, so stated Low back pain Constipation Essential tremor Atrial fibrillation HLD (hyperlipidemia) CAD (coronary artery disease), [place] coronary artery Anemia GERD (gastroesophageal reflux disease) Diabetes mellitus COPD (chronic obstructive pulmonary disease) HTN (hypertension) Diastolic CHF Surgical History H/O rotator cuff surgery H/O arthroscopic knee surgery History of back surgery H/O abdominal surgery Family History Mother Diabetes mellitus Cancer Father Diabetes mellitus Cancer Social History marital status: household members: spouse Smoking Status: Never smoker alcohol intake: never Meds Home Medications and Allergies Home Medications ?Medication ?Instructions ?Recorded ?Confirmed ?Type albuterol sulfate 90 mcg/actuation 2 puff INH Q6HP PRN Shortness Of 05/20/13 05/16/25 History aerosol inhaler (Ventolin HFA) Breath #0 puffs polyethylene glycol 3350 17 17 gm PO QDAYP PRN Constipation ##0 05/20/13 05/16/25 History gram/dose oral powder (Miralax) acetaminophen 500 mg capsule 1 cap PO Q6H 06/07/18 05/16/25 History aspirin 81 mg tablet,delayed 81 mg PO 0630 06/07/18 05/16/25 History release atorvastatin 40 mg tablet 1 tab PO BEDTIME 06/07/18 05/16/25 History cholecalciferol (vitamin D3) 25 1,000 unit PO QAM 06/07/18 05/16/25 History mcg (1,000 unit) capsule (Vitamin D3) docusate sodium 100 mg capsule 100 mg PO QAM 06/07/18 05/16/25 History doxazosin 8 mg tablet 8 mg PO 0630 06/07/18 05/16/25 History nitroglycerin 0.4 mg sublingual 0.4 mg sublingual Q5-15M PRN Chest 06/07/18 05/16/25 History tablet Pain pantoprazole 20 mg tablet,delayed 20 mg PO QAM 06/07/18 05/16/25 History release propranolol 60 mg tablet 1 tab PO TID 06/07/18 05/16/25 History levothyroxine 100 mcg tablet 100 mcg PO QAM 07/20/18 05/16/25 History gabapentin 100 mg capsule 100 mg PO TID #90 caps 07/23/18 05/16/25 Rx allopurinol 100 mg tablet 100 mg PO QAM 07/23/21 05/16/25 History duloxetine 60 mg capsule,delayed 60 mg PO BEDTIME 07/23/21 05/16/25 History release oxycodone 5 mg tablet 5 mg PO Q6HR 07/23/21 05/16/25 History tolterodine 2 mg capsule,extended 2 mg PO DAILY #90 caps 08/03/24 05/16/25 Rx release 24 hr insulin glargine 100 unit/mL (3 36 unit SUBCUT DAILY 02/06/25 05/16/25 History mL) subcutaneous pen (Lantus Solostar U-100 Insulin) metformin 500 mg tablet,extended 1,000 mg PO BID 02/06/25 05/16/25 History release 24 hr torsemide 20 mg tablet 20 mg PO DAILY 02/06/25 05/16/25 History warfarin 5 mg tablet 5 mg PO .COMPLEX 05/16/25 05/16/25 History Allergies Allergy/AdvReac Type Severity Reaction Status Date / Time fentanyl (FENTANYL) Allergy Severe HIVES, Verified 05/16/25 01:24 ITCHING iodine (IODINE) Allergy Severe RASH - Verified 05/16/25 01:24 TOPICAL AND IV CONTRAST shellfish derived (SHELLFISH Allergy Severe Abdominal Verified 05/16/25 01:24 DERIVED) Pain cyclobenzaprine Allergy Intermediate ITCHING Verified 05/16/25 01:24 (CYCLOBENZAPRINE) diclofenac (DICLOFENAC) Allergy Intermediate ITCHING Verified 05/16/25 01:24 methadone (METHADONE) Allergy Intermediate ITCHING Verified 05/16/25 01:24 hydromorphone (HYDROMORPHONE) Allergy Mild ITCHING Verified 05/16/25 01:24 hydroxyzine (HYDROXYZINE) Allergy Mild FEVER, Verified 05/16/25 01:24 SWEATS ibuprofen (IBUPROFEN) Allergy Unknown Verified 05/16/25 01:24 aspirin (ASPIRIN) AdvReac Severe STOMACH Verified 05/16/25 01:24 PAIN & HIVE W/325MG, CAN TAKE 81 MG solifenacin (From [facility]) AdvReac Unknown INCREASE Verified 05/16/25 01:24 PVR AND URINARY SX RACHEL AdvReac Unknown DOES NOT Uncoded 05/16/25 01:24 WORK Exam Vital Signs (past 8 hours): - 05/16/25 07:45 05/16/25 13:00 Temperature 99.2 F Pulse Rate 82 Respiratory Rate 20 Blood Pressure 114/73 Pulse Oximetry 92 96 Oxygen Delivery Method Room Air Oxygen Flow Rate 0 Oxygen Delivery Method Room Air Oxygen Flow Rate 0 Objective Labs 05/16/25 09:05 05/16/25 09:05 Labs: Laboratory Results - last 24 hr 05/16/25 05/16/25 05/16/25 01:52 02:00 09:05 WBC 6.1 6.6 RBC 3.64 L 3.32 L Hgb 11.0 L 10.0 L Hct 32.6 L 29.8 L MCV 89.4 89.8 MCH 30.3 30.2 MCHC 33.9 33.6 RDW 17.3 H 17.4 H Plt Count 132 L 110 L Neut % (Auto) 79.1 H 73.4 Lymph % (Auto) 9.4 L 11.4 L [place] % (Auto) 9.5 14.3 H Eos % (Auto) 1.2 L 0.5 L Baso % (Auto) 0.8 0.4 Neut # (Auto) 4900 4900 Lymph # (Auto) 600 L 800 L [place] # (Auto) 600 900 Eos # (Auto) 100 0 Baso # (Auto) 0 0 PT 18.9 H INR 1.7 H APTT 34 Sodium 137 137 Potassium 4.4 3.9 Chloride 101 102 Carbon Dioxide 28 27 BUN 26 H 21 H Creatinine 1.11 0.97 Estimated GFR > 60 > 60 BUN/Creatinine Ratio 23.4 H 21.6 Glucose 159 H 134 H POC Whole Bld Glucose Calcium 9.4 8.7 Magnesium 1.3 L Total Bilirubin 0.7 AST 24 ALT 16 Alkaline Phosphatase 63 Total Creatine Kinase 132 Troponin I < 0.012 NT-Pro-B Natriuret Pep 458 H Total Protein 7.9 Albumin 4.4 Globulin 3.5 Albumin/Globulin Ratio 1.3 Lipase < 10 L SARS-CoV-2 (PCR) Positive H Influenza A (RT-PCR) Flu a negative Influenza B (RT-PCR) Flu b negative RSV (PCR) Negative 05/16/25 05/16/25 09:18 12:05 WBC RBC Hgb Hct MCV MCH MCHC RDW Plt Count Neut % (Auto) Lymph % (Auto) [place] % (Auto) Eos % (Auto) Baso % (Auto) Neut # (Auto) Lymph # (Auto) [place] # (Auto) Eos # (Auto) Baso # (Auto) PT INR APTT Sodium Potassium Chloride Carbon Dioxide BUN Creatinine Estimated GFR BUN/Creatinine Ratio Glucose POC Whole Bld Glucose 139 H 185 H Calcium Magnesium Total Bilirubin AST ALT Alkaline Phosphatase Total Creatine Kinase Troponin I NT-Pro-B Natriuret Pep Total Protein Albumin Globulin Albumin/Globulin Ratio Lipase SARS-CoV-2 (PCR) Influenza A (RT-PCR) Influenza B (RT-PCR) RSV (PCR) Assessment & Plan Time-Based Coding :: [TOTAL MINUTES] spent with patient and on the chart (including review of chart, obtaining history, exam, reviewing outside data, placing orders, documenting exam and treatment plan, and counseling patient) on [DATE].
[2025-05-16] MEDS: ACETAMINOPHEN 325 MG TABLET PO ×2 (15:32→20:35)
[2025-05-16] MEDS: REMDESIVIR 200 MG in SODIUM CHLORIDE 0.9% 250 ML 250 MG IV (16:34)
[2025-05-16] MEDS: INSULIN LISPRO 100 UNIT/ML 3ML VIAL SUBCUT (18:02)
[2025-05-16] MEDS: WARFARIN 2.5 MG TABLET PO (18:02)
[2025-05-16] MEDS: AZITHROMYCIN 500 MG in DEXTROSE 5% IN WATER 250 ML 250 MG IV (18:03)
--- NOTE | 2025-05-16 20:03 | PC.NURSE ---
Patient's BP noted at 81/41 while sitting up in chair for dinner. Patient denies lightheadedness but is weak. [facility], BP improved. Dr. Chang notified. Order to dc imdur, hold propanolo for sbp < 110. rn shift mgr updated.
[2025-05-16] MEDS: ATORVASTATIN 20 MG TABLET 40 MG PO (20:36)
[2025-05-16] MEDS: SODIUM CHLORIDE 0.9% FLUSH 10 ML IV (20:38)
[2025-05-17] VITALS (9 sets, daily range): BP systolic 121–151; BP diastolic 68–94; PULSE 51–67; RESP 12–22; TEMP 36.3–38.2; O2SAT 90–99
[2025-05-17 04:42] LABS: INR 1.3 (0.9-1.3); Prothrombin Time 14.7 SECONDS (9.4-12.5)
[2025-05-17 04:56] LABS: Hemoglobin A1C% w Est Avg Glu 7.2 % (4.0-6.0)
[2025-05-17] MEDS: ASPIRIN EC 81 MG TABLET PO (05:47)
[2025-05-17] MEDS: PANTOPRAZOLE DR 20 MG TABLET PO (05:47)
[2025-05-17] MEDS: LEVOTHYROXINE 100 MCG TABLET 300 MCG PO (05:47)
--- NOTE | 2025-05-17 07:18 | P.PN_ITS ---
Subjective Subjective Interval history: History of present illness: 05/16: 80 year old male who tested positive for COPD and his is hospitalized with COVID pneumonia presents to the ED for a fall over his lower back due to weakness and increasing shortness for breath and reduced activity tolerance. . He denies any syncopal episode. He was just able to reach the telephone to be able to call the paramedics to come in. He denies any injury to his head or neck area. His complaints currently are in the lower back area and bilateral hip area. He also complains of some shortness of breath had his was recently diagnosed with COVID. His vital signs did show a low-grade fever. The patient also has quite a few tremors at baseline. No other symptoms. 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 S: He was comfortable off from oxygen today. Minimal cough. He denies any pain and is still feeling globally weak. No diarrhea. O: NAD, alert and oriented. Fluent speech. Lungs are clear, normal rate and effort. Heart is regular, no murmur gallop or rub. Abdomen is soft, non distended. Extremities are with 3+ edema. Assessment and plan: 1. COVID pneumonia with increasing weakness and fall now unable to get out of bed. Improving. * Decadron remdesivir * Ceftriaxone azithromycin * Supplemental oxygenation, weaned off. 2. Acute hypoxic respiratory failure, resolved. Chronic medical problems: * Atrial fibrillation * HLD (hyperlipidemia) * CAD (coronary artery disease), [place] coronary artery * Anemia * GERD (gastroesophageal reflux disease) * Diabetes mellitus * COPD (chronic obstructive pulmonary disease) * HTN (hypertension) * Diastolic CHF DVT prophylaxis: * Covered with warfarin Code status: * Full code blue Disposition: Possible discharge in 1-2 days. Home vs SNF depending on how he does with PT. Exam Vital Signs (past 8 hours): - 05/16/25 23:48 05/17/25 00:00 Temperature 99.2 F Pulse Rate 67 Respiratory Rate 16 Blood Pressure 121/76 Pulse Oximetry 92 95 Oxygen Delivery Method CPAP Fraction of Inspired Oxygen 28 Fraction of Inspired Oxygen 28 SaO2/FiO2 Ratio 328 Oxygen Delivery Method CPAP Oxygen Flow Rate 1 Objective Labs 05/16/25 09:05 05/16/25 09:05 Labs: Laboratory Results - last 24 hr 05/16/25 05/16/25 05/16/25 09:05 09:18 12:05 WBC 6.6 RBC 3.32 L Hgb 10.0 L Hct 29.8 L MCV 89.8 MCH 30.2 MCHC 33.6 RDW 17.4 H Plt Count 110 L Neut % (Auto) 73.4 Lymph % (Auto) 11.4 L [place] % (Auto) 14.3 H Eos % (Auto) 0.5 L Baso % (Auto) 0.4 Neut # (Auto) 4900 Lymph # (Auto) 800 L [place] # (Auto) 900 Eos # (Auto) 0 Baso # (Auto) 0 PT INR Sodium 137 Potassium 3.9 Chloride 102 Carbon Dioxide 27 BUN 21 H Creatinine 0.97 Estimated GFR > 60 BUN/Creatinine Ratio 21.6 Glucose 134 H POC Whole Bld Glucose 139 H 185 H Hemoglobin A1c Calcium 8.7 05/16/25 05/16/25 05/17/25 17:10 20:43 04:04 WBC RBC Hgb Hct MCV MCH MCHC RDW Plt Count Neut % (Auto) Lymph % (Auto) [place] % (Auto) Eos % (Auto) Baso % (Auto) Neut # (Auto) Lymph # (Auto) [place] # (Auto) Eos # (Auto) Baso # (Auto) PT 14.7 H INR 1.3 Sodium Potassium Chloride Carbon Dioxide BUN Creatinine Estimated GFR BUN/Creatinine Ratio Glucose POC Whole Bld Glucose 164 H 184 H Hemoglobin A1c 7.2 H Calcium [facility] Medical History (Updated 05/16/25 @ 07:34 by Javon Her MD) Gout Cognitive impairment, mild, so stated Low back pain Constipation Essential tremor Atrial fibrillation HLD (hyperlipidemia) CAD (coronary artery disease), [place] coronary artery Anemia GERD (gastroesophageal reflux disease) Diabetes mellitus COPD (chronic obstructive pulmonary disease) HTN (hypertension) Diastolic CHF Surgical History H/O rotator cuff surgery H/O arthroscopic knee surgery History of back surgery H/O abdominal surgery Family History Mother Diabetes mellitus Cancer Father Diabetes mellitus Cancer Social History marital status: household members: spouse Smoking Status: Former smoker alcohol intake: never Assessment & Plan Time-Based Coding :: [TOTAL MINUTES] spent with patient and on the chart (including review of chart, obtaining history, exam, reviewing outside data, placing orders, documenting exam and treatment plan, and counseling patient) on [DATE].
[2025-05-17] MEDS: ALBUTEROL/IPRATROPIUM 3 ML AMPUL INH ×4 (07:21→19:47)
[2025-05-17] MEDS: INSULIN LISPRO 100 UNIT/ML 3ML VIAL SUBCUT ×4 (08:22→21:57)
[2025-05-17] MEDS: ACETAMINOPHEN 325 MG TABLET PO (09:38)
[2025-05-17] MEDS: TORSEMIDE 10 MG TABLET 20 MG PO (09:39)
[2025-05-17] MEDS: oxyBUTYnin ER 5 MG TABLET PO (09:39)
[2025-05-17] MEDS: GABAPENTIN 100 MG CAPSULE PO ×3 (09:39→22:03)
[2025-05-17] MEDS: PROPRANOLOL 10 MG TABLET 60 MG PO ×3 (09:39→22:11)
[2025-05-17] MEDS: DOCUSATE 100 MG CAPSULE PO (09:39)
[2025-05-17] MEDS: SODIUM CHLORIDE 0.9% FLUSH 10 ML IV ×2 (09:40→22:04)
[2025-05-17] MEDS: CHOLECALCIFEROL (VITAMIN D3) 1,000 UNIT TABLET 1000 UNIT PO (09:40)
--- NOTE | 2025-05-17 11:40 | PT.IPTN ---
Current Diagnoses Unspecified atrial flutter (05/16/25) Chronic obstructive pulmonary disease, unspecified (05/16/25) Dorsalgia, unspecified (05/16/25) Chronic kidney disease, stage 3 unspecified (05/16/25) Benign prostatic hyperplasia with lower urinary tract symptoms (05/16/25) Physical Therapy Treatment Note M2 PT-IP Current Condition Start: 05/16/25 12:17 Freq: NEEDED Status: Active Protocol: Document 05/16/25 10:25 AB (Rec: 05/16/25 12:32 AB [id number]) Physical Therapy Current Condition Current Condition Evaluation Date 05/16/25 Treatment Diagnosis fall; Covid; difficulty in walking Onset Date 05/16/25 M3 PT-IP Subjective Start: 05/16/25 12:17 Freq: NEEDED Status: Active Protocol: Document 05/17/25 11:40 AB (Rec: 05/17/25 13:21 AB [id number]) Subjective Physical Therapy Visit Type Type Treatment Note Visit Start Time 11:40 Visit Stop Time 12:15 Number of AIR EXPORT AGENT Visits 0 Physical Therapy Visit Comments Patient Comments agreeable to get up and out of bed but refused to ambulate M4 PT-IP Mobility and Gait Start: 05/16/25 12:17 Freq: NEEDED Status: Active Protocol: Document 05/17/25 11:40 AB (Rec: 05/17/25 13:21 AB [id number]) PT-Bed Mobility Assessment Supine to Sit Supine to Sit Contact Guard Assistance,1 Person Assistance,Head of Bed Elevated,Bedrails PT-Transfer Assessment Sit to and From Stand Sit to and from Moderate Assistance,Maximum Assistance,1 Person Stand Assistance Equipment Transfer Assistive Gait Belt,Front Wheeled Walker Device Orthotic/Prosthetic No Devices or Brace: Transfers Transfer Destination Chair Transfer Technique Stand Step Pivot Transfer Ability Level of Assist Minimal Assistance,1 Person Assistance Comments Mobility Comments pt in bed and agreeable to get up. completed supine to sit with HOB elevated and pt used bed rail to assist CGA. needed increase time to complete. presents with increase posterior LOB needing mod A for sitting balance on EOB. sit to stand from EOB mod A and cues and step transfer to chair min A and cues. pt requested to use the urinal requiring min A for standing balance using FWW for support while using the urinal. continues to present with posterior LOB. pt refused to ambulate. required max A for controlled sitting on chair. positioned pt on the chair. call light and table placed within reach. M5 PT-IP Objective Assessments Start: 05/16/25 12:17 Freq: NEEDED Status: Active Protocol: Document 05/17/25 11:40 AB (Rec: 05/17/25 13:21 AB [id number]) Orientation Orientation/Cognition Safety Awareness Decreased Safety Awareness M6 PT-IP Treatment Start: 05/16/25 12:17 Freq: NEEDED Status: Active Protocol: Document 05/17/25 11:40 AB (Rec: 05/17/25 13:21 AB [id number]) Physical Therapy Treatment Education Education Provided Safety M7 PT-IP Assessment and Plan Start: 05/16/25 12:17 Freq: NEEDED Status: Active Protocol: Document 05/17/25 11:40 AB (Rec: 05/17/25 13:21 AB [id number]) PT Summary Assessment and Plan Potential Rehabilitation Fair Potential Summary Impairments Pain,ROM,Strength,Balance,Coordination,Sensation,Tone, Cognition,Bed Mobility,Transfers,Gait,Activity Tolerance Progress Towards Slow Progress due to Medical Issues,Slow Progress due Goals to Activity Tolerance Assessment Summary pt improving slowly with mobility and able to get to standing position mod A and max cues and transfer to chair using FWW min A and max cues. pt refused ambulation today. pt will require 24/7 assist and continues to be a high fall risk. pt will benefit from SNF rehab to improve overall mobility level. Goals Bed Mobility Goal Minimal Assistance Transfer Goal Minimal Assistance,Front Wheeled Walker Gait Goal Minimal Assistance,Front Wheel Walker Gait Distance 50 Other Goals improve bed mobility, transfers, ambulation using FWW SBA ~ 100 ft up/down 3 steps 1 rail SBA Days to Meet Goals 10 Frequency of Treatment Frequency Of Once a Day Treatment Treatment Plan Physical Therapy Bed Mobility Training,Transfer Training,Gait Training, Treatment Plan Therapeutic Exercise,Balance Retraining,Discharge Planning,Hot or Cold Pack,Neuromuscular Re-ed, Coordination Retraining Precautions Other Precautions falls; Covid droplet precautions Recommendations To Nursing Amount of Assist 1 Person Assist Needed Discharge Recommendations PT Discharge SNF Rehab Recommendations Equipment Needed for FWW if pt goes home Home Before Discharge Transportation Needs Private Vehicle,Wheelchair/Cabulance at Discharge - PT assist 1
--- NOTE | 2025-05-17 12:15 | OT.IP.TRT ---
Current Diagnoses Unspecified atrial flutter (05/16/25) Chronic obstructive pulmonary disease, unspecified (05/16/25) Dorsalgia, unspecified (05/16/25) Chronic kidney disease, stage 3 unspecified (05/16/25) Benign prostatic hyperplasia with lower urinary tract symptoms (05/16/25) Occupational Therapy Treatment Note M2 OT-IP Current Condition Start: 05/16/25 13:32 Freq: Status: Active Protocol: Document 05/16/25 13:33 [facility] (Rec: 05/16/25 13:52 [facility] Desktop) Occupational Therapy Current Condition Current Condition Evaluation Date 05/16/25 Treatment Diagnosis Frequent falls, COVID+ Diagnosis Onset Date 05/16/25 M3 OT- IP Subjective and Pain Start: 05/16/25 13:32 Freq: Status: Active Protocol: Document 05/17/25 13:02 [facility] (Rec: 05/17/25 13:12 [facility] Desktop) OT- Subjective Occupational Therapy Visit Type Type Treatment Note Visit Start Time 11:50 Visit Stop Time 12:15 Occupational Therapy Visit Comments Patient Comments Pt agreed to get up to the recliner to finish his lunch . Patient/Caregiver TO go home. Goals OT Pain Assessment Pain When Pain Assessed At Rest Pain Present Pain Present Denied Pain M4 OT- IP ADL's Start: 05/16/25 13:32 Freq: Status: Active Protocol: Document 05/17/25 13:02 [facility] (Rec: 05/17/25 13:12 [facility] Desktop) OT AUV-[id number]-Bttruyc General Evaluation Self-Feeding Ability Independent OT ADL-Grooming Comments OT Grooming Comments Not performed. OT ADL-Oral Care Comments Oral Care Comments Not performed. OT ADL-Toileting General Evaluation Toileting Ability Standby Assistance Comments OT Toileting Pt able to use urinal while standing with CGA for Comments balance. OT ADL-Bathing Comments OT Bathing Comments Not performed. M5 OT- IP IADL's Start: 05/16/25 13:32 Freq: Status: Active Protocol: Document 05/16/25 13:33 [facility] (Rec: 05/16/25 13:52 [facility] Desktop) OT-Instrumental Activities of Daily Living Home Safety Awareness Awareness of Need Decreased Awareness for Assistance at Home Home Safety Comments Pt insistent that he and his will be able to handle it at home. Pt insistent of not going to skilled rehab. Pt however open to hiring assist at home. Medication Management Medication Caregiver Administers Management Money Management Money Management Caregiver Provides Assistance Meal Preparation Meal Preparation Caregiver Provides Assist Hydrometer Calibrator Hydrometer Calibrator Caregiver Provides Assist M6 OT- IP Functional Cognition Start: 05/16/25 13:32 Freq: Status: Active Protocol: Document 05/17/25 13:02 [facility] (Rec: 05/17/25 13:12 [facility] Desktop) Cognitive Factors Limiting Selfcare Function Cognitive Comments Cognitive Assessment Pt still set on going home. Comments M7 OT- IP Mobility and Balance Start: 05/16/25 13:32 Freq: Status: Active Protocol: Document 05/17/25 13:02 [facility] (Rec: 05/17/25 13:12 [facility] Desktop) OT- Bed Mobility Assessment Supine to Sit Supine to Sit Assist Contact Guard Assistance,1 Person Assistance OT-Transfer Assessment Sit to and From Stand Sit to and from Moderate Assistance Stand Transfers Transfer Ability Minimal Assistance Technique Transfer Destination Bed,Chair Transfer Technique Stand Step Pivot Devices Transfer Assistive Gait Belt,Front Wheeled Walker Devices Comments Mobility Comments Pt moving much better and CGA to get to the edge of the bed. MODA x1 to stand as pt tends to lean backwards and MODA to transfer to the recliner. Pt only wanting to transfer to the recliner and use the urinal while standing at this time. OT- Balance Assessment Sitting Balance and Reactions Static Sitting Good Balance Ability Dynamic Sitting Fair Balance Ability Standing Balance and Reactions Static Standing Fair Balance Ability Dynamic Standing Fair Balance Ability Comments Other Balance Tests/ Pt more steady on his feet today but still needing CGA Deviations/Treatment for balance as pt tends to lean backwards on his heels. : M8 OT- IP Objective Assessments Start: 05/16/25 13:32 Freq: Status: Active Protocol: Document 05/16/25 13:33 [facility] (Rec: 05/16/25 13:52 [facility] Desktop) OT Gross Range of Motion Upper Extremity Range of Motion Assessment Within Functional Limits OT Strength Upper Extremity Strength Assessment Within Functional Limits OT- Coordination Assessment Comments Coordination Right hand tremors. Comments M9 OT- IP Assessment and Plan Start: 05/16/25 13:32 Freq: Status: Active Protocol: Document 05/17/25 13:02 [facility] (Rec: 05/17/25 13:12 [facility] Desktop) OT Summary Assessment and Plan Potential Rehabilitation Good Potential Analytic Complexity Moderate at Evaluation Summary OT Impairments Pain,Strength,Balance,Functional Mobility,Self-Feeding, Grooming,Dressing,Toileting,Bathing,Toilet Transfers, Shower Transfers,Activity Tolerance Progress Towards Progressing Toward Goals Goals Assessment Summary Pt now able to move with one person assist with FWW. Pending progress and if his in able to assist home - preferably to go to skilled rehab as pt has frequent falls recently verus home with 24/7 assist and home health. Goals Self-Feeding Goal Independent Grooming Goal Independent Dressing Goal Independent Toileting Goal Independent Toilet Transfer Goal Independent Shower Transfer Goal Independent Days to Meet Goals 15 Frequency of Treatment Other frequency 5x/week Treatment Plan OT Treatment Plan ADL Training,Functional Cognition Training,Functional Mobility,Patient/Family Education,Discharge Planning Other Treatment Stand at sink with CGA with FWW for ADL needs. Recommendations and Next Treatment Focus Discharge Recommendations OT Discharge Home with 24/7 Assist Available,Home Health,SNF Rehab, Recommendations Home vs SNF Transportation Needs Private Vehicle,Wheelchair/Cabulance at Discharge
--- NOTE | 2025-05-17 12:38 | CM.DANOTE ---
Initial DCP Assessment Visit Note Reviewed EMR and team rounds for pt's medical status and updates. BRICK OFFBEARER did not meet with pt f/f due to active covid/symptomatic. His also has covid and is hospitalized, she will be d/c'ing home today, and is pt's primary cg. Pt resides modified independently with a FWW and cane. His will transport him home once he's medically cleared for d/c. Monitoring for final d/c recs and needs. Payor: [facility] PCP: Corinna Chandra Pt is a 80-year-old M with a PMH of HTN, CHF, CAD, COPD, and atrial flutter. He presented to the ED yesterday via EMS after having a GLF, resulting in intractable pain in his lower back and both hips. He was unable to get back up from the floor. Imaging in ED did not show any fractures, however, he was incidentally found to have covid. Chest x-ray confirmed covid pneumonia. He was started on IV Decadron, Remdesivir, IV antibiotics, and pain management. Plan was made to admit for further tx and monitoring. Discharge Planning/Care Management Advanced directive, confirm from FAMILY Start: 05/16/25 15:54 Freq: Q24H Status: Active Protocol: Document 05/16/25 21:00 MW (Rec: 05/17/25 02:41 MW [id number]) Advance Directive, confirm on record Time 21:00 Person contacted pt Copy received No CM Discharge Assessment Start: 05/16/25 06:20 Freq: Status: Active Protocol: Document 05/17/25 12:35 DPL (Rec: 05/17/25 12:37 DPL [id number]) Discharge Planning Assessment Assigned Discharge DARIEL Oliveira Jewel Supervisor Provider Corinnamary Chandra Insurance [facility] Advance Directives? Yes: POLST Advance Directives Yes on File History Provided By Medical Record Has Patient been No admitted in last 30 days? Prior Living House Arrangements Household Members spouse Type of Relies on Others transporation used prior to admit Independent with ADL No: modified independent with a walker and cane 's Is patient alert and Yes oriented? Needs Assistance Meal Prep,Home Chores / Shopping With Caregiver for No Another DME Already Rented / Bath Bench,Elevated Toilet Seat,FWW / Walker,Cane Owned Comment Not identified at this time, monitoring. Barriers to No Discharge Discharge Plan Home Transportation Spouse Arrangement Additional Comment patient stated that he does not want services Whiteboard Updated Yes in Patient Room with name and ext. # of Beamer Operator Review Status In Process Please Provide Date 05/17/25 Initial DC Assessment Was Performed
[2025-05-17] MEDS: ACETAMINOPHEN 325 MG TABLET 975 MG PO ×2 (15:56→22:02)
[2025-05-17] MEDS: REMDESIVIR 100 MG in SODIUM CHLORIDE 0.9% 250 ML 250 MG IV (16:09)
[2025-05-17] MEDS: WARFARIN 2.5 MG, WARFARIN 5 MG 7.5 MG PO (17:16)
[2025-05-17] MEDS: AZITHROMYCIN 500 MG in DEXTROSE 5% IN WATER 250 ML 250 MG IV (18:49)
[2025-05-17] MEDS: INSULIN GLARGINE 100 UNIT/ML 3ML PEN 25 UNIT SUBCUT (21:59)
[2025-05-17] MEDS: ATORVASTATIN 20 MG TABLET 40 MG PO (22:03)
[2025-05-18] VITALS (7 sets, daily range): BP systolic 117–159; BP diastolic 66–102; PULSE 49–65; RESP 15–17; TEMP 36.3–37.1; O2SAT 92–99
[2025-05-18 04:54] LABS: INR 1.2 (0.9-1.3); Prothrombin Time 13.5 SECONDS (9.4-12.5)
[2025-05-18] MEDS: PANTOPRAZOLE DR 20 MG TABLET PO (06:26)
[2025-05-18] MEDS: LEVOTHYROXINE 100 MCG TABLET 300 MCG PO (06:26)
[2025-05-18] MEDS: DOXAZOSIN 2 MG TABLET 8 MG PO (06:26)
[2025-05-18] MEDS: ASPIRIN EC 81 MG TABLET PO (06:26)
[2025-05-18] MEDS: ALBUTEROL/IPRATROPIUM 3 ML AMPUL INH ×3 (08:15→19:15)
[2025-05-18] MEDS: INSULIN LISPRO 100 UNIT/ML 3ML VIAL SUBCUT ×6 (08:17→22:57)
[2025-05-18] MEDS: DOCUSATE 100 MG CAPSULE PO (08:40)
[2025-05-18] MEDS: TORSEMIDE 10 MG TABLET 20 MG PO (08:41)
[2025-05-18] MEDS: ACETAMINOPHEN 325 MG TABLET 975 MG PO ×3 (08:41→23:07)
[2025-05-18] MEDS: CHOLECALCIFEROL (VITAMIN D3) 1,000 UNIT TABLET 1000 UNIT PO (08:41)
[2025-05-18] MEDS: SODIUM CHLORIDE 0.9% FLUSH 10 ML IV ×2 (08:42→21:00)
[2025-05-18] MEDS: GABAPENTIN 100 MG CAPSULE PO ×3 (08:46→23:10)
[2025-05-18] MEDS: oxyBUTYnin ER 5 MG TABLET PO (08:46)
[2025-05-18] MEDS: PROPRANOLOL 10 MG TABLET 60 MG PO ×3 (10:03→23:10)
--- NOTE | 2025-05-18 10:31 | CM.DPC ---
DCP Cont. Reviewed EMR and team rounds for pt's medical status and updates. Left message for pt's spouse, Kathy, to clarify if she would be interested in having Home Health PT/RN ordered for him, as he is potentially discharging today. Pending return call.
--- NOTE | 2025-05-18 12:04 | PT.IPTN ---
Current Diagnoses Unspecified atrial flutter (05/16/25) Chronic obstructive pulmonary disease, unspecified (05/16/25) Dorsalgia, unspecified (05/16/25) Chronic kidney disease, stage 3 unspecified (05/16/25) Benign prostatic hyperplasia with lower urinary tract symptoms (05/16/25) Physical Therapy Treatment Note M2 PT-IP Current Condition Start: 05/16/25 12:17 Freq: NEEDED Status: Active Protocol: Document 05/16/25 10:25 AB (Rec: 05/16/25 12:32 AB [id number]) Physical Therapy Current Condition Current Condition Evaluation Date 05/16/25 Treatment Diagnosis fall; Covid; difficulty in walking Onset Date 05/16/25 M3 PT-IP Subjective Start: 05/16/25 12:17 Freq: NEEDED Status: Active Protocol: Document 05/18/25 11:20 DCW (Rec: 05/18/25 12:03 DCW [id number]) Subjective Physical Therapy Visit Type Type Treatment Note Visit Start Time 11:20 Visit Stop Time 12:49 Number of DIRECTOR OF CATERING Visits 0 Physical Therapy Visit Comments Patient Comments Pt up in chair, wanting to get up and move in hopes of getting to go home. M4 PT-IP Mobility and Gait Start: 05/16/25 12:17 Freq: NEEDED Status: Active Protocol: Document 05/18/25 11:20 DCW (Rec: 05/18/25 12:03 DCW [id number]) PT-Transfer Assessment Sit to and From Stand Sit to and from Moderate Assistance,1 Person Assistance Stand Equipment Transfer Assistive Gait Belt,Front Wheeled Walker Device Orthotic/Prosthetic No Devices or Brace: Comments Mobility Comments Pt able to get up from recliner and stand at FWW with Mod Ax1, but upon standing, was SBA. O2 sat remained ~ 94% with supplemental O2. Gait Assessment Gait Gait Assistance Standby Assistance,1 Person Assist Required: Distance (Feet) 40 Able to Maintain Yes Weight Bearing Status During Gait Assistive Devices Assistive Device Gait Belt,Front Wheeled Walker Orthotic/Prosthetic No Devices or Brace: Gait Deviations General Gait Pattern Antalgic,Decreased Stride Length,Decreased Feet Clearance,Step-to Gait,Wide Based Gait Factors Limiting Gait Function Factors Limiting Decreased Activity Tolerance,Decreased Strength, Gait Function Difficulty Following Directions,Limited Range of Motion ,Poor Balance,Poor Safety Awareness Stair Climbing Assessment Evaluation Level of Assist On Contact Guard Assistance,1 Person Assistance Stairs Devices Stair Climbing Right Railing Assistive Devices Technique/Endurance Stair Climbing Ascend Direction Stair Climbing Step to Step Technique Number of Steps 1 Climbed Stair Climbing Set # 3 Repetitions (reps) Comments Stair Climbing Used mobile single step in room to assess pt's stair Comments mobility, pt used bed rail on R side. Pt able to ascend step x3 CGA. No noted SOB, O2 sat remained at 95% with supplemental O2 M5 PT-IP Objective Assessments Start: 05/16/25 12:17 Freq: NEEDED Status: Active Protocol: Document 05/17/25 11:40 AB (Rec: 05/17/25 13:21 AB [id number]) Orientation Orientation/Cognition Safety Awareness Decreased Safety Awareness M6 PT-IP Treatment Start: 05/16/25 12:17 Freq: NEEDED Status: Active Protocol: Document 05/18/25 11:20 DCW (Rec: 05/18/25 12:03 DCW [id number]) Physical Therapy Treatment Education Education Provided Safety M7 PT-IP Assessment and Plan Start: 05/16/25 12:17 Freq: NEEDED Status: Active Protocol: Document 05/18/25 11:20 DCW (Rec: 05/18/25 12:03 DCW [id number]) PT Summary Assessment and Plan Summary Impairments Pain,ROM,Strength,Balance,Coordination,Sensation,Tone, Cognition,Bed Mobility,Transfers,Gait,Activity Tolerance Progress Towards Slow Progress due to Medical Issues,Slow Progress due Goals to Activity Tolerance Assessment Summary Pt showing good overall improvement, pt able to demonstrate gait and stairs today with CGA/SBA, although still fatigues quickly and requires assistance with sit->stand, however pt does have a lift chair at home. Pt is likely at or approaching PLOF, although will have less assistance at home as , who is primary caregiver, is also recovering from recent hospitalization. If medically cleared and if he will have assistance at home, will likely be appropriate to discharge home. Goals Bed Mobility Goal Minimal Assistance Transfer Goal Minimal Assistance,Front Wheeled Walker Gait Goal Minimal Assistance,Front Wheel Walker Gait Distance 50 Other Goals improve bed mobility, transfers, ambulation using FWW SBA ~ 100 ft up/down 3 steps 1 rail SBA Days to Meet Goals 10 Frequency of Treatment Frequency Of Once a Day Treatment Treatment Plan Physical Therapy Bed Mobility Training,Transfer Training,Gait Training, Treatment Plan Therapeutic Exercise,Balance Retraining,Discharge Planning,Hot or Cold Pack,Neuromuscular Re-ed, Coordination Retraining Precautions Other Precautions falls; Covid droplet precautions Recommendations To Nursing Amount of Assist 1 Person Assist Needed Discharge Recommendations PT Discharge Home vs SNF Recommendations Equipment Needed for FWW if pt goes home Home Before Discharge Transportation Needs Private Vehicle,Wheelchair/Cabulance at Discharge - PT assist 1
--- NOTE | 2025-05-18 12:14 | OT.IP.TRT ---
Current Diagnoses Unspecified atrial flutter (05/16/25) Chronic obstructive pulmonary disease, unspecified (05/16/25) Dorsalgia, unspecified (05/16/25) Chronic kidney disease, stage 3 unspecified (05/16/25) Benign prostatic hyperplasia with lower urinary tract symptoms (05/16/25) Occupational Therapy Treatment Note M2 OT-IP Current Condition Start: 05/16/25 13:32 Freq: Status: Active Protocol: Document 05/16/25 13:33 [facility] (Rec: 05/16/25 13:52 [facility] Desktop) Occupational Therapy Current Condition Current Condition Evaluation Date 05/16/25 Treatment Diagnosis Frequent falls, COVID+ Diagnosis Onset Date 05/16/25 M3 OT- IP Subjective and Pain Start: 05/16/25 13:32 Freq: Status: Active Protocol: Document 05/18/25 12:05 [facility] (Rec: 05/18/25 12:14 [facility] [id number]) OT- Subjective Occupational Therapy Visit Type Visit Start Time 11:30 Visit Stop Time 12:00 Occupational Therapy Visit Comments Patient Comments Pt wanting to change out his brief and willikng to try a step . Patient/Caregiver To go home. Goals OT Pain Assessment Pain When Pain Assessed At Rest Pain Present Pain Present Denied Pain M4 OT- IP ADL's Start: 05/16/25 13:32 Freq: Status: Active Protocol: Document 05/18/25 12:05 [facility] (Rec: 05/18/25 12:14 [facility] [id number]) OT PSH-Hsuu-Jrepity General Evaluation Self-Feeding Ability Independent OT ADL-Oral Care General Eval Oral Care Ability Independent OT ADL-Dressing General Eval Lower Body Dressing Maximum Assistance Ability Areas Needing Underpants/Brief Assistance Comments OT Dressing Comments Pt needing assist to get his brief over his feet. Pt states use of LB dressing equipment at home. Educated pt to sit while doffing brief off his feet. OT ADL-Toileting General Evaluation Toileting Ability Moderate Assistance Comments OT Toileting Pt able to use wipes to wash off perineal areas Comments appropriately. Pt just needing assist for brief management needs. M5 OT- IP IADL's Start: 05/16/25 13:32 Freq: Status: Active Protocol: Document 05/16/25 13:33 [facility] (Rec: 05/16/25 13:52 [facility] Desktop) OT-Instrumental Activities of Daily Living Home Safety Awareness Awareness of Need Decreased Awareness for Assistance at Home Home Safety Comments Pt insistent that he and his will be able to handle it at home. Pt insistent of not going to skilled rehab. Pt however open to hiring assist at home. Medication Management Medication Caregiver Administers Management Money Management Money Management Caregiver Provides Assistance Meal Preparation Meal Preparation Caregiver Provides Assist Sql Analyst Sql Analyst Caregiver Provides Assist M6 OT- IP Functional Cognition Start: 05/16/25 13:32 Freq: Status: Active Protocol: Document 05/18/25 12:05 [facility] (Rec: 05/18/25 12:14 [facility] [id number]) Cognitive Factors Limiting Selfcare Function Cognitive Comments Cognitive Assessment Pt able to follow commands for ADL and mobility needs. Comments M7 OT- IP Mobility and Balance Start: 05/16/25 13:32 Freq: Status: Active Protocol: Document 05/18/25 12:05 [facility] (Rec: 05/18/25 12:14 [facility] [id number]) OT-Transfer Assessment Sit to and From Stand Sit to and from Standby Assistance,Moderate Assistance Stand Transfers Transfer Ability Standby Assistance,Contact Guard Assistance Technique Transfer Destination Chair Transfer Technique Stand Step Pivot Devices Transfer Assistive Gait Belt,Front Wheeled Walker Devices Comments Mobility Comments Pt varies from CGA to MODA to stand to FWW. Once on his feet mainly close SBA to occasional CGA with FWW. Pt able to do a step with PT and bed rail with CGA/SBA. O2 on 88-91% and O2 2L at 95%. Pt states mainly just wears the O2 at night. OT- Balance Assessment Sitting Balance and Reactions Static Sitting Good Balance Ability Dynamic Sitting Good Balance Ability Standing Balance and Reactions Static Standing Fair Balance Ability Dynamic Standing Fair Balance Ability Comments Other Balance Tests/ Pt a little better with balance and mobility with FWW. Deviations/Treatment Pt needing increased time to get his feet set when : coming to stand. M8 OT- IP Objective Assessments Start: 05/16/25 13:32 Freq: Status: Active Protocol: Document 05/16/25 13:33 [facility] (Rec: 05/16/25 13:52 [facility] Desktop) OT Gross Range of Motion Upper Extremity Range of Motion Assessment Within Functional Limits OT Strength Upper Extremity Strength Assessment Within Functional Limits OT- Coordination Assessment Comments Coordination Right hand tremors. Comments M9 OT- IP Assessment and Plan Start: 05/16/25 13:32 Freq: Status: Active Protocol: Document 05/18/25 12:05 [facility] (Rec: 05/18/25 12:14 [facility] [id number]) OT Summary Assessment and Plan Potential Rehabilitation Good Potential Analytic Complexity Moderate at Evaluation Summary OT Impairments Pain,Strength,Balance,Functional Mobility,Self-Feeding, Grooming,Dressing,Toileting,Bathing,Toilet Transfers, Shower Transfers,Activity Tolerance Assessment Summary Pt doing much better and states maybe 75% of his baseline now. Pt however needing use of O2 during exertion as dropped to 88-91%. Pt has O2 at home but only uses it at night. Pt to go home with 24/7 available assist and home health. Goals Self-Feeding Goal Independent Grooming Goal Independent Dressing Goal Independent Toileting Goal Independent Bathing Goal Independent Toilet Transfer Goal Independent Shower Transfer Goal Independent Days to Meet Goals 10 Frequency of Treatment Other frequency 5x/week Treatment Plan OT Treatment Plan ADL Training,Functional Cognition Training,Functional Mobility,Patient/Family Education,Discharge Planning Discharge Recommendations OT Discharge Home with 24/7 Assist Available,Home Health Recommendations Transportation Needs Private Vehicle at Discharge
--- NOTE | 2025-05-18 15:23 | P.PN_ITS ---
Subjective Subjective Interval history: S: He feels better today, he was off from oxygen. He was stronger and did well physical therapy. They feel that he will likely be strong enough to return straight home by tomorrow. O: NAD, alert and oriented. Fluent speech. Lungs are clear, normal rate and effort. Heart is regular, no murmur gallop or rub. Abdomen is soft, non distended. Extremities are free of edema. A/P: 1. COVID pneumonia with increasing weakness and fall now unable to get out of bed. Improving. * Decadron remdesivir * Ceftriaxone azithromycin * Supplemental oxygenation, weaned off. 2. Acute hypoxic respiratory failure, resolved. 3. Weakness, improving. Chronic medical problems: * Atrial fibrillation * HLD (hyperlipidemia) * CAD (coronary artery disease), [place] coronary artery * Anemia * GERD (gastroesophageal reflux disease) * Diabetes mellitus * COPD (chronic obstructive pulmonary disease) * HTN (hypertension) * Diastolic CHF DVT prophylaxis: * Covered with warfarin CHRISTI: 05/19. Exam Vital Signs (past 8 hours): - 05/18/25 07:30 05/18/25 09:56 05/18/25 13:44 Temperature 98.7 F Pulse Rate 50 L 63 49 L Respiratory Rate 15 16 16 Blood Pressure 159/102 H Pulse Oximetry 96 95 94 Oxygen Delivery Method Room Air Nasal Cannula Oxygen Flow Rate 1 Fraction of Inspired Oxygen 28 SaO2/FiO2 Ratio 328 Oxygen Delivery Method Nasal Cannula Oxygen Flow Rate 1 Objective Labs 05/16/25 09:05 05/16/25 09:05 Labs: Laboratory Results - last 24 hr 05/17/25 05/17/25 05/18/25 17:01 21:25 04:05 PT 13.5 H INR 1.2 POC Whole Bld Glucose 258 H 307 H 05/18/25 05/18/25 07:39 12:07 PT INR POC Whole Bld Glucose 152 H D 218 H [facility] Medical History (Updated 05/16/25 @ 07:34 by Javon Her MD) Gout Cognitive impairment, mild, so stated Low back pain Constipation Essential tremor Atrial fibrillation HLD (hyperlipidemia) CAD (coronary artery disease), [place] coronary artery Anemia GERD (gastroesophageal reflux disease) Diabetes mellitus COPD (chronic obstructive pulmonary disease) HTN (hypertension) Diastolic CHF Surgical History H/O rotator cuff surgery H/O arthroscopic knee surgery History of back surgery H/O abdominal surgery Family History Mother Diabetes mellitus Cancer Father Diabetes mellitus Cancer Social History marital status: household members: spouse Smoking Status: Former smoker alcohol intake: never Assessment & Plan Time-Based Coding :: [TOTAL MINUTES] spent with patient and on the chart (including review of chart, obtaining history, exam, reviewing outside data, placing orders, documenting exam and treatment plan, and counseling patient) on [DATE].
[2025-05-18] MEDS: REMDESIVIR 100 MG in SODIUM CHLORIDE 0.9% 250 ML 250 MG IV (15:29)
[2025-05-18] MEDS: WARFARIN 2.5 MG, WARFARIN 5 MG 7.5 MG PO (17:07)
[2025-05-18] MEDS: AZITHROMYCIN 500 MG in DEXTROSE 5% IN WATER 250 ML 250 MG IV (18:31)
[2025-05-18] MEDS: INSULIN GLARGINE 100 UNIT/ML 3ML PEN 30 UNIT SUBCUT (22:59)
[2025-05-18] MEDS: ATORVASTATIN 20 MG TABLET 40 MG PO (23:09)
[2025-05-19 01:27] VITALS: O2SAT 95
--- NOTE | 2025-05-19 01:28 | RT ---
Patient checked multiple times between 2200 and 2300 but not ready for BIPAP. Patient is now on BIPAP for the night with 2L O2 inline.
[2025-05-19 04:52] LABS: INR 1.4 (0.9-1.3); Prothrombin Time 15.3 SECONDS (9.4-12.5)
[2025-05-19] MEDS: PANTOPRAZOLE DR 20 MG TABLET PO (06:34)
[2025-05-19] MEDS: LEVOTHYROXINE 100 MCG TABLET 300 MCG PO (06:35)
[2025-05-19] MEDS: ASPIRIN EC 81 MG TABLET PO (06:35)
[2025-05-19] MEDS: DOXAZOSIN 2 MG TABLET 8 MG PO (06:35)
[2025-05-19] MEDS: INSULIN LISPRO 100 UNIT/ML 3ML VIAL SUBCUT (08:05)
[2025-05-19 08:34] VITALS: BP 158/82; PULSE 47; RESP 16; TEMP 36.1; O2SAT 94
[2025-05-19] MEDS: DOCUSATE 100 MG CAPSULE PO (09:21)
[2025-05-19] MEDS: TORSEMIDE 10 MG TABLET 20 MG PO (09:21)
[2025-05-19] MEDS: GABAPENTIN 100 MG CAPSULE PO (09:21)
[2025-05-19] MEDS: ACETAMINOPHEN 325 MG TABLET 975 MG PO (09:21)
[2025-05-19] MEDS: PROPRANOLOL 10 MG TABLET 60 MG PO (09:21)
[2025-05-19] MEDS: CHOLECALCIFEROL (VITAMIN D3) 1,000 UNIT TABLET 1000 UNIT PO (09:21)
[2025-05-19] MEDS: oxyBUTYnin ER 5 MG TABLET PO (09:22)
[2025-05-19] MEDS: SODIUM CHLORIDE 0.9% FLUSH 10 ML IV (09:24)
--- NOTE | 2025-05-19 10:07 | PT.IPTN ---
Current Diagnoses Unspecified atrial flutter (05/16/25) Chronic obstructive pulmonary disease, unspecified (05/16/25) Dorsalgia, unspecified (05/16/25) Chronic kidney disease, stage 3 unspecified (05/16/25) Benign prostatic hyperplasia with lower urinary tract symptoms (05/16/25) Physical Therapy Treatment Note M2 PT-IP Current Condition Start: 05/16/25 12:17 Freq: NEEDED Status: Active Protocol: Document 05/16/25 10:25 AB (Rec: 05/16/25 12:32 AB [id number]) Physical Therapy Current Condition Current Condition Evaluation Date 05/16/25 Treatment Diagnosis fall; Covid; difficulty in walking Onset Date 05/16/25 M3 PT-IP Subjective Start: 05/16/25 12:17 Freq: NEEDED Status: Active Protocol: Document 05/19/25 10:07 AB (Rec: 05/19/25 12:15 AB [id number]) Subjective Physical Therapy Visit Type Type Treatment Note Visit Start Time 10:07 Visit Stop Time 10:40 Number of PUBLIC HEALTH DIRECTOR Visits 0 Physical Therapy Visit Comments Patient Comments agreeable to do PT M4 PT-IP Mobility and Gait Start: 05/16/25 12:17 Freq: NEEDED Status: Active Protocol: Document 05/19/25 10:07 AB (Rec: 05/19/25 12:15 AB [id number]) PT-Transfer Assessment Sit to and From Stand Sit to and from Maximum Assistance,1 Person Assistance,Use of Upper Stand Extremities Equipment Transfer Assistive Gait Belt,Front Wheeled Walker Device Orthotic/Prosthetic No Devices or Brace: Comments Mobility Comments pt sitting on the chair and agreeable to do PT. O2 sat : 93-94% at RA. sit to stand from chair max A and max cues. pt ambulated in room using FWW ~ 60 ft min A and cues. presents with shuffling gait. pt can be impulsive . pt sat back on chair. O2 sat 88-89%. cued for deep breathing and O2 sat increased to 94%. educated pt on pacing and deep breathing in between activities. pt understood. educated on sit<>stand techniques. completed sit<>stand x 4 reps requiring max A and max cues. pt with decrease trunk and B knee ROM affecting sit to stand. pt stated that his bed and chair at home is elevated so he is able to stand up easier. positioned pt on the chair. call light and table placed within reach. pt stated that he has a FWW for him to use at home. Gait Assessment Gait Gait Assistance Minimum Assistance,1 Person Assist Required: Distance (Feet) 60 Able to Maintain Yes Weight Bearing Status During Gait Assistive Devices Assistive Device Gait Belt,Front Wheeled Walker Orthotic/Prosthetic No Devices or Brace: Gait Deviations General Gait Pattern Antalgic,Ataxic,Decreased Stride Length,Decreased Feet Clearance,Step-to Gait,Wide Based Gait Factors Limiting Gait Function Factors Limiting Decreased Activity Tolerance,Decreased Strength, Gait Function Difficulty Following Directions,Limited Range of Motion ,Poor Balance,Poor Safety Awareness M5 PT-IP Objective Assessments Start: 05/16/25 12:17 Freq: NEEDED Status: Active Protocol: Document 05/17/25 11:40 AB (Rec: 05/17/25 13:21 AB [id number]) Orientation Orientation/Cognition Safety Awareness Decreased Safety Awareness M6 PT-IP Treatment Start: 05/16/25 12:17 Freq: NEEDED Status: Active Protocol: Document 05/19/25 10:07 AB (Rec: 05/19/25 12:15 AB [id number]) Physical Therapy Treatment Education Education Provided Safety M7 PT-IP Assessment and Plan Start: 05/16/25 12:17 Freq: NEEDED Status: Active Protocol: Document 05/19/25 10:07 AB (Rec: 05/19/25 12:15 AB [id number]) PT Summary Assessment and Plan Potential Rehabilitation Fair Potential Summary Impairments Pain,ROM,Strength,Balance,Coordination,Sensation,Tone, Cognition,Bed Mobility,Transfers,Gait,Activity Tolerance Progress Towards Slow Progress due to Activity Tolerance,Slow Progress - Goals Other Assessment Summary pt requiring max A for sit to stand and min A for ambulation using FWW. pt plans to go home and spouse to assist him. pt will also have HHPT. Goals Bed Mobility Goal Minimal Assistance Transfer Goal Minimal Assistance,Front Wheeled Walker Gait Goal Minimal Assistance,Front Wheel Walker Gait Distance 100 Other Goals improve bed mobility, transfers, ambulation using FWW SBA ~ 100 ft up/down 3 steps 1 rail SBA Days to Meet Goals 10 Frequency of Treatment Frequency Of Once a Day Treatment Treatment Plan Physical Therapy Bed Mobility Training,Transfer Training,Gait Training, Treatment Plan Therapeutic Exercise,Balance Retraining,Discharge Planning,Hot or Cold Pack,Neuromuscular Re-ed, Coordination Retraining Precautions Other Precautions falls; Covid droplet precautions Recommendations To Nursing Amount of Assist 1 Person Assist Needed Discharge Recommendations PT Discharge Home vs SNF Recommendations Transportation Needs Private Vehicle,Wheelchair/Cabulance at Discharge - PT assist 1
--- NOTE | 2025-05-19 11:21 | CM.DPNOTE ---
DCP Continued: Reviewed EMR and team rounds for pt?s medical status. Per Provider, pt cleared for discharge home with home health after another PT treatment. Per PT, pt cleared to discharge home with home health. Per [facility], pt accepted and start of care to be established with pt . DC Summary to be sent to [facility] when available. Plan: Discharge orders in, anticipating dc home with [facility] to follow with care - spouse will transport. CM Team will continue to follow for coordination of discharge plans. BROOKE Xavier
--- NOTE | 2025-05-19 11:36 | P.DS_ITS ---
History of Present Illness History of Present Illness Chief complaint: hip/back pain after fall Narrative: From H&P: 05/16: 80 year old male who tested positive for COPD and his is hospitalized with COVID pneumonia presents to the ED for a fall over his lower back due to weakness and increasing shortness for breath and reduced activity tolerance. . He denies any syncopal episode. He was just able to reach the telephone to be able to call the paramedics to come in. He denies any injury to his head or neck area. His complaints currently are in the lower back area and bilateral hip area. He also complains of some shortness of breath had his was recently diagnosed with COVID. His vital signs did show a low-grade fever. The patient also has quite a few tremors at baseline. No other symptoms. 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 was admitted overnight by the antenna specialist has been having progressive weakness shortness for breath since he was admitted to the his oxygenation has dropped to 85% Chest x-ray very difficult to interpret because of morbid obesity could indicate diffuse interstitial airspace disease Discharge Providers Provider Date of admission: 05/16/25 06:12 Discharge Date: 05/19/25 Primary care physician: Corinna Tobias PA-C Consults: 05/16/25 06:58 Consult to Physical Therapy Evaluate & Treat Comment: Physician Instructions: Evaluate and Treat 05/16/25 12:05 Consult to Occupational Therapy Evaluate & Treat Comment: Physician Instructions: Evaluate and treat 05/16/25 15:59 Consult to Pharmacy Routine Comment: admission protocol 05/18/25 12:31 Consult to Home Health Routine Comment: RN, PT, OT Reason For Exam: Home Health Services 05/18/25 12:36 Consult to Home Health Routine Comment: Reason For Exam: RN, OT, PT, Bath Aide Discharge provider: Nikhil Bennett MD Summary Hospital Course Discharge Diagnosis: 1. COVID pneumonia with increasing weakness and fall now unable to get out of bed. Improving. 2. Acute hypoxic respiratory failure, resolved. 3. Weakness, improving. Chronic medical problems: * Atrial fibrillation * HLD (hyperlipidemia) * CAD (coronary artery disease), [place] coronary artery * Anemia * GERD (gastroesophageal reflux disease) * Diabetes mellitus * COPD (chronic obstructive pulmonary disease) * HTN (hypertension) * Diastolic CHF Hospital Course: The patient was admitted and treated for COVID pneumonia and hypoxic respiratory failure with oxygen, remdesivir, and Decadron. He was able to wean off from the oxygen and had good improvement of his clinical status over the next 2-1/2 days. He was initially debilitated but rapidly improved with daily physical therapy assessments. Ultimately they felt to be stable for discharge home with home health. The patient both preferred this. He was discharged on May 19. Takes warfarin, was therapeutic at the time of admission. He was managed by pharmacy but remains subtherapeutic. He was instructed to take 7.5 mg on May 19 and May 20 and then resume his previous scheduling of 5 mg all days except for Thursday and Thursday. He will have a follow up protime early next week. Status at Discharge Cognitive/behavioral status at discharge: oriented Functional status at discharge: uses cane/walker Overall status at discharge: patient is back to baseline Time Spent with Patient Time spent: Greater than 30 minutes Exam Vital Signs (past 8 hours): - 05/19/25 08:34 Temperature 96.9 F L Pulse Rate 47 L Respiratory Rate 16 Blood Pressure 158/82 H Pulse Oximetry 94 Oxygen Flow Rate 0 Fraction of Inspired Oxygen 28 SaO2/FiO2 Ratio 328 Oxygen Delivery Method BiPAP Oxygen Flow Rate 0 Narrative Exam Narrative: He was seen and examined in the day of discharge. No distress, breathing comfortably. Able to ambulate with walker. He has distended abdomen. Objective ECG Impression: Intervals [place] Rate: 103 P: 57 TX: 202 QRS: -54 QRSD: 134 T: 6 QT: 374 QTc: 489 Interpretive Statements Undetermined rhythm Left axis deviation Right bundle branch block Imaging Multiple studies:: Radiologist's impression: Femur x-ray: No acute right femoral fracture or dislocation. Right hip and right knee joint osteoarthritis. No evidence of avascular necrosis. Femur x-ray: No acute left femoral fracture or dislocation. Left hip and left knee joint osteoarthritis. No evidence of avascular necrosis. Lumbar spine x-ray: Limited study due to diffuse osteopenia and presence of surgical hardware. No obvious hardware loosening or failure. No definite acute vertebral body compression fracture or significant spondylolisthesis. Chest x-ray: Cardiomegaly and mild congestion. No definite focal infiltrate. No pleural effusion or pneumothorax. Labs 05/16/25 09:05 05/16/25 09:05 Labs: Laboratory Results - last 24 hr 05/18/25 05/18/25 05/18/25 12:07 16:59 22:04 PT INR POC Whole Bld Glucose 218 H 234 H 233 H 05/19/25 05/19/25 03:45 07:40 PT 15.3 H INR 1.4 H POC Whole Bld Glucose 161 H PFSH Medical History Gout Cognitive impairment, mild, so stated Low back pain Constipation Essential tremor Atrial fibrillation HLD (hyperlipidemia) CAD (coronary artery disease), [place] coronary artery Anemia GERD (gastroesophageal reflux disease) Diabetes mellitus COPD (chronic obstructive pulmonary disease) HTN (hypertension) Diastolic CHF Surgical History H/O rotator cuff surgery H/O arthroscopic knee surgery History of back surgery H/O abdominal surgery Family History Mother Diabetes mellitus Cancer Father Diabetes mellitus Cancer Social History marital status: household members: spouse Smoking Status: Former smoker alcohol intake: never Discharge Assessment & Plan Assessment and Plan Assessment: 1. COVID pneumonia with hypoxic respiratory failure and debilitation, improved. Plan of Treatment: Discharge home with several additional days of prednisone and close follow up with PCP. We will stop antibiotics at this point. Discharge Plan Discharge Plan Patient Disposition: Home Health Service Provider Discharge Comment: Stable for discharge home, we will use assistive walking devices. Discharge orders & Medications Prescriptions: New prednisone 50 mg tablet 50 mg PO DAILY Qty: 5 0RF Continued albuterol sulfate [Ventolin HFA] 90 MCG/PUFF HFA aerosol inhaler 2 puff INH Q6HP PRN (Reason: Shortness Of Breath) Qty: 0 polyethylene glycol 3350 [Miralax] 119 GM powder 17 gm PO QDAYP PRN (Reason: Constipation) Qty: 0 atorvastatin 40 mg tablet 1 tab PO BEDTIME propranolol 60 mg tablet 1 tab PO TID Patient Comments: 0630 1200 2230 pantoprazole 20 mg tablet,delayed release (DR/EC) 20 mg PO QAM doxazosin 8 mg tablet 8 mg PO 0630 aspirin 81 mg Tablet,Delayed Release (Dr/Ec) 81 mg PO 0630 acetaminophen 500 mg Capsule 2 cap PO Q6H nitroglycerin 0.4 mg Tablet, Sublingual 0.4 mg SUBLINGUAL Q5-15M PRN (Reason: Chest Pain) docusate sodium 100 mg Capsule 100 mg PO QAM cholecalciferol (vitamin D3) [Vitamin D3] 1,000 unit Capsule 1,000 unit PO QAM allopurinol 100 mg tablet 100 mg PO QAM oxycodone 5 mg tablet 5 mg PO Q6HR Patient Comments: TAKE 2 TABS AT 6 AM FOR BACK PAIN THEN 1 TAB EVERY 3 HOURS UNTIL BEDTIME- pt takes scheduled q6hr. Rx Instructions: 01/26/1800/000 duloxetine 60 mg Capsule,Delayed Release(Dr/Ec) 60 mg PO BEDTIME warfarin 5 mg tablet 5 mg PO .COMPLEX Rx Instructions: 5 mg orally daily, except on Tuesdays and Fridays patient takes 1/2 tab; levothyroxine 100 mcg tablet 100 mcg PO QAM gabapentin 100 mg capsule 100 mg PO TID Qty: 90 0RF torsemide 20 mg tablet 20 mg PO DAILY metformin 500 mg tablet extended release 24 hr 1,000 mg PO BID insulin glargine [Lantus Solostar U-100 Insulin] 100 unit/mL (3 mL) insulin pen 36 unit SUBCUT DAILY Patient Comments: inject 10 units subcutaneously every evening INCREASE 2 units HAFSA... (REFER TO PRESCRIPTION NOTES). tolterodine 2 mg capsule,extended release 24hr 2 mg PO DAILY Qty: 90 1RF Medication counseling provided by Pharmacist: Yes Pharmacist Comment: Warfarin dosing for INR 1.4 day of discharge Follow up/Referrals: Corinna Tobias, PAAdelsoC [Primary Care Provider, Medical] Diet/Activity/Treatments Diet: Carb-consistent/Diabetic Activity: As tolerated. Visit Report/Discharge Packet Instructions: DI for COVID-19 (Suspected or Confirmed ) Stand Alone Forms: Patient Portal/API Discharge Data Primary Care Provider: Corinna Tobias
--- NOTE | 2025-05-19 12:28 | PC.NURSE ---
Discharge order given and understood by pt. PIV removed. Pt discharged with pt's via private vehicle.
== END 2025-05-19 12:29 | disposition home health service (06) | DRG 177 ==
LOC: ED 03:56 → AC 06:45
PROVIDERS: Pharmacist Pharmacist Clinician (PhC)/ Clinical Pharmacy Specialist; Admitting Provider Internal Medicine; Emergency Provider Family Medicine; PCP Physician Assistant; Visit Provider Internal Medicine
DX: U07.1 COVID-19 (principal); J12.82 Pneumonia due to coronavirus disease 2019; J96.01 Acute respiratory failure with hypoxia; J44.0 Chronic obstructive pulmonary disease with (acute) lower respiratory infection; I13.0 Hypertensive heart and chronic kidney disease with heart failure and stage 1 through stage 4 chronic kidney disease, or unspecified chronic kidney disease; I50.30 Unspecified diastolic (congestive) heart failure; N13.8 Other obstructive and reflux uropathy; M54.50 Low back pain, unspecified; I25.10 Atherosclerotic heart disease of native coronary artery without angina pectoris; I48.91 Unspecified atrial fibrillation; N18.31 Chronic kidney disease, stage 3a; N40.1 Benign prostatic hyperplasia with lower urinary tract symptoms; E03.9 Hypothyroidism, unspecified; F32.A Depression, unspecified; E66.01 Morbid (severe) obesity due to excess calories; R53.1 Weakness; R79.1 Abnormal coagulation profile; E78.5 Hyperlipidemia, unspecified; K21.9 Gastro-esophageal reflux disease without esophagitis; E11.22 Type 2 diabetes mellitus with diabetic chronic kidney disease; M10.9 Gout, unspecified; K59.00 Constipation, unspecified; M25.552 Pain in left hip; M25.551 Pain in right hip; W18.30XA Fall on same level, unspecified, initial encounter; Z79.890 Hormone replacement therapy; Z79.01 Long term (current) use of anticoagulants; Z87.891 Personal history of nicotine dependence; Z79.84 Long term (current) use of oral hypoglycemic drugs; Z68.36 Body mass index [BMI] 36.0-36.9, adult; Z79.4 Long term (current) use of insulin
CPT/HCPCS: 36415; 71045; 72100; 73552; 80048; 80053; 82550; 82962; 83036; 83690; 83735; 83880; 84484; 85025; 85610; 85730; 87637; 93005; 94640; 94762; 96365; 97116; 97162; 97166; 97530; 97535; 99284; J0696; J1100; J1815; J3475; J7050; J7060

== ENCOUNTER 2025-05-26 15:43 | Inpatient (IN) | payer MEDICARE, SELFPAY ==
[2018-06-15 04:12] VITALS: PULSE 75; RESP 30; O2SAT 96
[2025-05-16 15:55] VITALS: BMI 36.6
[2025-05-26] VITALS (18 sets, daily range): BP systolic 133–165; BP diastolic 64–108; PULSE 75–131; RESP 18–36; TEMP 36.2–37.5; O2SAT 95–97; BMI 36.6
--- NOTE | 2025-05-26 15:52 | EKG_ITS ---
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
--- NOTE | 2025-05-26 16:13 | DI.RAD.S_ITS ---
PROCEDURE: XR CHEST 1V INDICATIONS: chest pain TECHNIQUE: One view of the chest was acquired. COMPARISON: [facility], CR, XR CHEST 1V, 05/16/2025, 1:59. [facility], CR, XR CHEST 1V, 07/30/2021, 14:57. FINDINGS: Surgical changes and devices: None. Lungs and pleura: Lungs are difficult to accurately assess due to large body habitus and prominent reduced inspiratory volume. A definite focal pneumonia is not seen but chronic CHF may be present. No pleural effusions or pneumothorax. Mediastinum: Mediastinal contours appear normal. Heart size is normal. Bones and chest wall: No suspicious bony lesions. Extensive prior Hernandez rods again seen along the thoracic and extending into the lumbosacral spine Overlying soft tissues appear unremarkable. IMPRESSION: Large body habitus, prominent reduced inspiratory volume. Probable cardiomegaly and chronic CHF. No definite focal consolidative pneumonia. Dictated by: Juan C James M.D. on 05/26/2025 at 16:58 Approved by: Juan C James M.D. on 05/26/2025 at 16:58
[2025-05-26 17:17] LABS: Add Manual Diff / Slide Review NO; Hematocrit 36.5 % (41-53); Hemoglobin 12.2 g/dL (13.5-17.5); Lymphocytes Absolute Auto 700 /uL (1100-4500); Mean Corpuscular HGB Conc 33.5 % (30-36); Mean Corpuscular Hemoglobin 30.0 PG (26-34); Mean Corpuscular Volume 89.5 fL (80-100); Platelet Count 185 X10^3/uL (150-400)
[2025-05-26 17:31] LABS: Alanine Aminotransferase 24 IU/L (<50); Albumin 4.0 g/dL (3.5-5.0); Albumin Globulin Ratio 1.1 (1.0-2.8); Alkaline Phosphatase 61 U/L (38-126); Blood Urea Nitrogen 24 mg/dL (9-20); Calcium 9.4 mg/dL (8.4-10.2); Carbon Dioxide 28 mmol/L (22-32); Chloride 100 mmol/L (98-107); Estimated Glomerular Filt Rate > 60 mL/min (>60); Globulin 3.7 g/dL (1.7-4.1); Glucose 205 mg/dL (70-99); HEMOLYSIS < 15 (0-50); Lipase 11 U/L (23-300); Magnesium 1.6 mg/dL (1.6-2.3); Potassium 4.0 mmol/L (3.4-5.1); Sodium 138 mmol/L (137-145); Total Protein 7.7 g/dL (6.3-8.2)
[2025-05-26 17:43] LABS: NT-proBNP (BNP-Adult 18+) 2130 pg/mL (<450)
[2025-05-26 17:44] LABS: Troponin I 0.235 ng/mL (0.01-0.034)
--- NOTE | 2025-05-26 17:49 | ED.WEAKNESS ---
HPI - Weakness General Chief complaint: Weakness Stated complaint: Afib and weakness Time Seen by Provider: 05/26/25 16:13 History of Present Illness HPI Narrative: Patient is a an 80-year-old male history of atrial fibrillation, diabetes CHF hypertension anemia presenting today with ongoing weakness and chest pain. He has been home for about 1 week since his admission for COVID pneumonia discharged on May 19. He reports since then he has not been able to get himself dressed he has not been able to transfer he has had ongoing chest pain for the last 3 days. No significant shortness of breath abdominal pain. He just overall is not doing well. states that over last 2 days has been has become much more weak difficulty going to the bathroom situ is recovering from COVID but doing better than he is. He also has not been taking his insulin. She reports that he had an INR of 4.6 and the Coumadin was held she was supposed to restart it today but has not. Patient had recent admission May 16 through May 19 with COVID pneumonia on Rocephin and azithromycin Related Data Home Medications ?Medication ?Instructions ?Recorded ?Confirmed albuterol sulfate 90 mcg/actuation 2 puff INH Q6HP PRN Shortness Of 05/20/13 05/26/25 aerosol inhaler (Ventolin HFA) Breath #0 puffs aspirin 81 mg tablet,delayed 81 mg PO 0630 06/07/18 05/26/25 release atorvastatin 40 mg tablet 1 tab PO BEDTIME 06/07/18 05/26/25 cholecalciferol (vitamin D3) 25 1,000 unit PO QAM 06/07/18 05/26/25 mcg (1,000 unit) capsule (Vitamin D3) doxazosin 8 mg tablet 8 mg PO 0630 06/07/18 05/26/25 nitroglycerin 0.4 mg sublingual 0.4 mg sublingual Q5-15M PRN Chest 06/07/18 05/26/25 tablet Pain pantoprazole 20 mg tablet,delayed 20 mg PO QAM 06/07/18 05/26/25 release propranolol 60 mg tablet 1 tab PO TID 06/07/18 05/26/25 allopurinol 100 mg tablet 100 mg PO QAM 07/23/21 05/26/25 duloxetine 60 mg capsule,delayed 60 mg PO BEDTIME 07/23/21 05/26/25 release insulin glargine 100 unit/mL (3 36 unit SUBCUT DAILY 02/06/25 05/26/25 mL) subcutaneous pen (Lantus Solostar U-100 Insulin) metformin 500 mg tablet,extended 1,000 mg PO BID 02/06/25 05/26/25 release 24 hr torsemide 20 mg tablet 20 mg PO DAILY 02/06/25 05/26/25 warfarin 5 mg tablet 5 mg PO .COMPLEX 05/16/25 05/26/25 levothyroxine 175 mcg tablet 175 mcg PO DAILY 05/26/25 05/26/25 oxybutynin chloride 5 mg tablet 5 mg PO DAILY 05/26/25 05/26/25 primidone 50 mg tablet 50 mg PO DAILY 05/26/25 05/26/25 repaglinide 0.5 mg tablet 0.5 mg PO 3XD 05/26/25 05/26/25 Previous Rx's ?Medication ?Instructions ?Recorded gabapentin 100 mg capsule 100 mg PO TID #90 caps 07/23/18 Allergies Allergy/AdvReac Type Severity Reaction Status Date / Time fentanyl (FENTANYL) Allergy Severe HIVES, Verified 05/16/25 01:24 ITCHING iodine (IODINE) Allergy Severe RASH - Verified 05/16/25 01:24 TOPICAL AND IV CONTRAST shellfish derived (SHELLFISH Allergy Severe Abdominal Verified 05/16/25 01:24 DERIVED) Pain cyclobenzaprine Allergy Intermediate ITCHING Verified 05/16/25 01:24 (CYCLOBENZAPRINE) diclofenac (DICLOFENAC) Allergy Intermediate ITCHING Verified 05/16/25 01:24 methadone (METHADONE) Allergy Intermediate ITCHING Verified 05/16/25 01:24 hydromorphone (HYDROMORPHONE) Allergy Mild ITCHING Verified 05/16/25 01:24 hydroxyzine (HYDROXYZINE) Allergy Mild FEVER, Verified 05/16/25 01:24 SWEATS ibuprofen (IBUPROFEN) Allergy Unknown Verified 05/16/25 01:24 aspirin (ASPIRIN) AdvReac Severe STOMACH Verified 05/16/25 01:24 PAIN & HIVE W/325MG, CAN TAKE 81 MG solifenacin (From [facility]) AdvReac Unknown INCREASE Verified 05/16/25 01:24 PVR AND URINARY SX RACHEL AdvReac Unknown DOES NOT Uncoded 05/16/25 01:24 WORK Patient History Medical History Gout Cognitive impairment, mild, so stated Low back pain Constipation Essential tremor Atrial fibrillation HLD (hyperlipidemia) CAD (coronary artery disease), red devil coronary artery Anemia GERD (gastroesophageal reflux disease) Diabetes mellitus COPD (chronic obstructive pulmonary disease) HTN (hypertension) Diastolic CHF Surgical History H/O rotator cuff surgery H/O arthroscopic knee surgery History of back surgery H/O abdominal surgery Family History Mother Diabetes mellitus Cancer Father Diabetes mellitus Cancer Social History marital status: household members: spouse alcohol intake: never alcohol intake frequency: holidays/special occasions only Exam Initial Vital Signs Initial Vital Signs: Vital Signs Pulse Rate 120 H 05/26/25 15:46 Respiratory Rate 20 05/26/25 15:46 Blood Pressure 133/76 05/26/25 15:46 Pulse Oximetry 96 05/26/25 15:46 Oxygen Delivery Method Room Air 05/26/25 15:46 GENERAL: Alert 80-year-old male and in [no acute] distress. HEENT: Head atraumatic,EOMI, pupils reactive, face symmetric, [moist] mucous membranes CARDIOVASCULAR: Regular rate and rhythm without murmurs, rubs or gallops. RESPIRATORY: Breath sounds equal bilaterally, no wheezes rales or rhonchi. ABDOMEN: Soft, nontender. Normoactive bowel sounds all 4 quadrants. No guarding or rebound. EXTREMITIES: Normal range of motion, no clubbing or edema. Neurovascularly intact NEUROLOGICAL: Alert and oriented x4.Normal gait and speech. Cranial nerves II through XII grossly intact. SKIN: Chronic venous insufficiency in lower extremity Course Orders Ordered: ED Orders 05/26/25 16:13 XR chest 1V Stat EKG-12 Lead Stat 05/26/25 17:08 Complete Blood Count AUTO DIFF Stat Comprehensive Metabolic Panel Stat Lipase Stat Magnesium Stat NT-proBNP (BNP-Adult 18+) Stat PTT Partial Thromboplastin Chris Stat Prothrombin Time INR Stat Troponin I Stat 05/26/25 18:08 CT head/brain wo con Stat 05/26/25 19:03 Trop I [Troponin I] Stat 05/26/25 20:53 CT angio chest PE protocol Stat 05/26/25 21:07 Consult to Occupational Therapy Evaluate & Treat Consult to Physical Therapy Evaluate & Treat 05/27/25 02:30 PTT Partial Thromboplastin Chris Q6H 05/27/25 05:00 Basic Metabolic Panel DAILY Complete Blood Count AUTO DIFF DAILY Hemoglobin and Hematocrit DAILY NT-proBNP (BNP-Adult 18+) DAILY Platelet Count DAILY Prothrombin Time INR DAILY 05/27/25 08:30 PTT Partial Thromboplastin Chris Q6H 05/27/25 14:30 PTT Partial Thromboplastin Chris Q6H 05/28/25 05:00 Hemoglobin and Hematocrit DAILY Platelet Count DAILY Acetaminophen (Acetaminophen 325 Mg Tablet) 650 mg PO Q6H PRN PRN Reason: Fever/Mild Pain (1-3) Hydrocodone Bitart/Acetaminophen (Hydrocodone/Acet 5/325 Tablet) 1 tab PO Q4H PRN PRN Reason: Pain, Moderate (4-6) Allopurinol (Allopurinol 100 Mg Tablet) 100 mg PO DAILY [facility] Aspirin (Aspirin Ec 81 Mg Tablet) 81 mg PO 0630 [facility] Atorvastatin Calcium (Atorvastatin 20 Mg Tablet) 40 mg PO BEDTIME [facility] Calcium Carbonate (Calcium Carbonate 500 Mg Tab) 1,000 mg PO Q4HR PRN PRN Reason: Dyspepsia Doxazosin Mesylate (Doxazosin 2 Mg Tablet) 8 mg PO 0630 [facility] Duloxetine HCl (Duloxetine 30 Mg Capsule.Dr) 60 mg PO BEDTIME [facility] FEL[facility] Gabapentin (Gabapentin 100 Mg Capsule) 100 mg PO TID [facility] Heparin Sodium/Dextrose (Heparin Drip) 25,000 unit in 500 mls @ 29.393 mls/hr IV CONT LUIS FELIPE; Protocol Last Admin: 05/26/25 22:10 Dose: 8.17 units/kg/hr, 20 mls/hr Documented By: PABLO Co-signed By: HNG Insulin Glargine (Insulin Glargine 100 Unit/Ml 3ml Pen) 36 unit SUBCUT DAILY [facility] Levothyroxine Sodium (Levothyroxine 75 Mcg Tablet) 75 mcg PO 0600 [facility] Levothyroxine Sodium (Levothyroxine 100 Mcg Tablet) 100 mcg PO 0600 [facility] Metformin HCl (Metformin Xr 500 Mg Tab.Er.24h) 1,000 mg PO BID [facility] Naloxone HCl (Naloxone 0.4 Mg/Ml Vial) 0.2 mg IV Q2MIN PRN PRN Reason: Opiate Reversal Nitroglycerin (Nitroglycerin 0.4 Mg Sl Tab) 0.4 mg SL Q5MIN PRN PRN Reason: chest pain Ondansetron HCl (Ondansetron 4 Mg/2 Ml Inj) 4 mg IV Q8HR PRN PRN Reason: Nausea And Vomiting Oxybutynin (Oxybutynin 5 Mg Tablet) 5 mg PO DAILY [facility] Pantoprazole Sodium (Pantoprazole Dr 20 Mg Tablet) 20 mg PO 0600 [facility] FEL[facility] Propranolol HCl (Propranolol 10 Mg Tablet) 60 mg PO TID [facility] FELIPE Sennosides (Sennosides 8.6 Mg Tablet) 17.2 mg PO BEDTIME LU[facility] FELIPE Torsemide (Torsemide 10 Mg Tablet) 20 mg PO DAILY [facility] FELIPE Warfarin Sodium (Warfarin 5 Mg Tablet) 5 mg PO .COMPLEX LUIS FELIPE Discontinued Medications Aspirin (Aspirin 81 Mg Chew Tab) 324 mg PO NOW ONE Stop: 05/26/25 20:38 Last Admin: 05/26/25 21:01 Dose: 324 mg Documented By: PABLO Diphenhydramine HCl (Diphenhydramine 50 Mg/Ml Vial) 25 mg IV NOW ONE Stop: 05/26/25 20:55 Last Admin: 05/26/25 21:02 Dose: 25 mg Documented By: PABLO Heparin Sodium (Porcine) (Heparin 5,000 Unit/Ml Vial) 5,000 unit IV NOW ONE Stop: 05/26/25 20:29 Last Admin: 05/26/25 22:10 Dose: 5,000 unit Documented By: PABLO Levothyroxine Sodium (Levothyroxine 100 Mcg Tablet) 175 mcg PO QAM [facility] Methylprednisolone (Methylprednisolone Succ 125 Mg/2 Ml Vial) 125 mg IV NOW ONE Stop: 05/26/25 20:55 Last Admin: 05/26/25 21:01 Dose: 125 mg Documented By: PABLO Vital Signs Vital signs: Vital Signs - 8 hr 05/26/25 15:46 05/26/25 15:49 05/26/25 15:50 Temperature 99.5 F Pulse Rate 120 H 109 H Respiratory Rate 20 18 18 Blood Pressure 133/76 Pulse Oximetry 96 96 Oxygen Delivery Method Room Air 05/26/25 15:50 05/26/25 16:00 05/26/25 16:31 Temperature Pulse Rate 121 H Respiratory Rate 22 Blood Pressure 133/76 157/73 H Pulse Oximetry 95 Oxygen Delivery Method 05/26/25 17:00 05/26/25 17:30 05/26/25 17:30 Temperature Pulse Rate 121 H Respiratory Rate 22 Blood Pressure 165/106 H 153/108 H Pulse Oximetry 96 Oxygen Delivery Method 05/26/25 18:00 05/26/25 18:01 05/26/25 18:01 Temperature Pulse Rate 93 H 93 H Respiratory Rate 18 20 Blood Pressure 137/64 Pulse Oximetry 96 95 Oxygen Delivery Method 05/26/25 18:30 05/26/25 19:00 05/26/25 19:30 Temperature Pulse Rate 127 H 126 H 98 H Respiratory Rate 24 20 Blood Pressure Pulse Oximetry 97 95 96 Oxygen Delivery Method Room Air 05/26/25 20:00 05/26/25 20:30 05/26/25 21:00 Temperature Pulse Rate 131 H 96 H 94 H Respiratory Rate 35 H 36 H Blood Pressure Pulse Oximetry 96 96 96 Oxygen Delivery Method MDM - Weakness Lab Data 05/26/25 17:08 05/26/25 17:08 Labs: Lab Results 05/26/25 05/26/25 Range/Units 17:08 19:03 WBC 9.7 (4.5-11.0) X10^3/uL RBC 4.07 L (4.5-5.9) X10^6/uL Hgb 12.2 L (13.5-17.5) g/dL Hct 36.5 L (41-53) % MCV 89.5 (80-100) fL MCH 30.0 (26-34) PG MCHC 33.5 (30-36) % RDW 17.4 H (11.6-14.8) % Plt Count 185 (150-400) X10^3/uL Neut % (Auto) 84.6 H (50-75) % Lymph % (Auto) 7.1 L (25-40) % [place] % (Auto) 8.0 (3-14) % Eos % (Auto) 0.2 L (2-4) % Baso % (Auto) 0.1 (0-2) % Neut # (Auto) 8200 H (5557-9766) /uL Lymph # (Auto) 700 L (3213-2801) /uL [place] # (Auto) 800 (0-900) /uL Eos # (Auto) 0 (0-450) /uL Baso # (Auto) 0 (0-100) /uL PT 19.2 H (9.4-12.5) SECONDS INR 1.7 H (0.9-1.3) APTT 34 (25.1-36.5) SECONDS Sodium 138 (137-145) mmol/L Potassium 4.0 (3.4-5.1) mmol/L Chloride 100 (98-107) mmol/L Carbon Dioxide 28 (22-32) mmol/L BUN 24 H (9-20) mg/dL Creatinine 1.14 (0.66-1.25) mg/dL Estimated GFR > 60 (>60) mL/min BUN/Creatinine Ratio 21.1 (6-22) Glucose 205 H (70-99) mg/dL Calcium 9.4 (8.4-10.2) mg/dL Magnesium 1.6 (1.6-2.3) mg/dL Total Bilirubin 1.0 (0.2-1.3) mg/dL AST 24 (17-59) IU/L ALT 24 (<50) IU/L Alkaline Phosphatase 61 (38-126) U/L Troponin I 0.235 H* 0.274 H* (0.01-0.034) ng/mL NT-Pro-B Natriuret Pep 2130 H (<450) pg/mL Total Protein 7.7 (6.3-8.2) g/dL Albumin 4.0 (3.5-5.0) g/dL Globulin 3.7 (1.7-4.1) g/dL Albumin/Globulin Ratio 1.1 (1.0-2.8) Lipase 11 L (23-300) U/L Imaging Data Chest x-ray: Radiologist Impression: PROCEDURE: XR CHEST 1V INDICATIONS: Chest Pain TECHNIQUE: One view of the chest was acquired. COMPARISON: [facility], , XR CHEST 1V, 05/19/2025, 17:12. FINDINGS: Surgical changes and devices: None. Lungs and pleura: Lungs are clear. No pleural effusions or pneumothorax. Mediastinum: Mediastinal contours appear normal. Heart size is normal. Bones and chest wall: No suspicious bony lesions. Overlying soft tissues appear unremarkable. IMPRESSION: No acute cardiopulmonary abnormality is seen. Approved by: Arden Rodriguez M.D. on 05/26/2025 at 15:46 CT scan - head: Radiologist Impression: PROCEDURE: CT HEAD/BRAIN WO CON INDICATIONS: weakness on coumadin TECHNIQUE: Noncontrast 4.5 mm thick angled axial sections acquired from the foramen magnum to the vertex, with coronal and sagittal reformats. For radiation dose reduction, the following was used: automated exposure control, adjustment of mA and/or kV according to patient size. COMPARISON: [facility], CT, CT HEAD/BRAIN WO CON, 12/21/2023, 14:10. FINDINGS: Image quality: Diagnostic. CSF spaces: Basal cisterns are patent. No extra-axial fluid collections. The ventricles are symmetric in size and shape. Brain: No intracranial bleeds or mass effect. There is cerebral volume loss, with resultant ventricular and sulcal prominence. There are periventricular and deep white matter chronic small vessel ischemic changes. There is intracranial internal carotid artery atherosclerosis. Skull and face: Calvarium and visualized facial bones appear intact, without suspicious lesions. Sinuses: Visualized sinuses and mastoids are clear. IMPRESSION: 1. No acute intracranial process. 2. Moderate atrophy and chronic microvascular ischemic changes. Dictated by: Marcella Stevenson M.D. on 05/26/2025 at 18:51 CT scan - chest: Radiologist Impression: PROCEDURE: CT ANGIO CHEST PE PROTOCOL INDICATIONS: chest pain eleveated trop recent admission TECHNIQUE: After the administration of intravenous contrast, 2 mm thick sections acquired from the pulmonary apices to the posterior costophrenic angles. 3-dimensional maximum intensity projection (MIP) coronal and sagittal reformats were then acquired through the thorax. For radiation dose reduction, the following was used: automated exposure control, adjustment of mA and/or kV according to patient size. COMPARISON: None. FINDINGS: Image quality: Diagnostic. Pulmonary arteries: Pulmonary arteries are normal in size, and demonstrate no intraluminal filling defects to suggest central pulmonary embolism. Lower Neck: No enlarged lymph nodes. Thyroid: No thyroid nodules which require sonographic follow up, per consensus guidelines. Axillae: No enlarged lymph nodes. Chest Wall: Bilateral gynecomastia. Bones: Changes of long segment thoracic lumbar posterior spinal instrumented fusion. Cement augmentation at T4. No lytic or blastic osseous lesion. Lungs and Pleura: No pneumothorax. No pleural effusion. Moderate paraseptal emphysema. Left upper lobe subpleural 15 mm pulmonary nodule (5/23). Right upper lobe 11 mm solid pulmonary nodule (5/132). Right middle lobe 12 mm solid pulmonary nodule (5/161). Patchy ground-glass opacities in both lungs. . Heart: Mild cardiomegaly. Triple-vessel coronary artery calcifications. Aortic valve calcifications. Thoracic Vessels: No aortic aneurysm. Mediastinum and Isabel: No enlarged lymph nodes. Esophagus: No wall thickening. No hiatal hernia. Upper Abdomen: Visualized upper abdomen solid organs and bowel loops appear normal. IMPRESSION: 1. No pulmonary embolus. 2. Patchy ground-glass opacities throughout both lungs are concerning for multifocal pneumonia, such as COVID. 3. Multiple bilateral solid pulmonary nodules measure up to 15 mm in the left lung lobe and 12 mm in the right lung. Given recent multifocal pneumonia, recommend short interval follow-up chest CT in 4 weeks, to exclude underlying neoplastic process. 4. Moderate to severe coronary artery calcifications. Correlate with risk factors, symptoms, and consider cardiology referral versus lifestyle modifications. Communication: The above findings were discussed with the ordering clinician, Dr. You, by Dr. Montero via telephone on 05/26/2025 at 10:45 pm. Dictated by: Yogesh Montero M.D. on 05/26/2025 at 22:38 ECG Data Attestation: I personally reviewed and interpreted this ECG as follows: Prior ECG tracings: available for review Interpretation: Atrial fibrillation rate 110 right bundle-branch block noted similar to prior no significant ST-T changes MDM Narrative Medical decision making narrative: MDM CC: Chest pain weakness Complicating co-morbidities: Atrial fibrillation CHF Data collected from: patient, records and Medical records reviewed: prior admission Differential considered: Intracranial hemorrhage sepsis, and embolism acute coronary Exam documented above, pertinent findings include: Alert pleasant diffusely weak 80-year-old male breath sounds are equal bilaterally heart rate is irregular Lab Test results independently reviewed as above. Pertinent findings: Troponin 0.235-->0.274 BNP 2130, previously 458 on 05/16/2025 CBC no leukocytosis no anemia CMP no electrolyte abnormality no COREY glucose 205 Independently reviewed EKG as above Atrial fibrillation right bundle-branch block no significant ST-T changes similar to prior Imaging studies independently reviewed: CT head no intracranial hemorrhage Chest x-ray probable cardiomegaly and CHF Consultations: 2029 Dr. Mcnamara cardiology agrees with heparin drip no need to transfer at this time 2244 Dr. Zuñiga radiology reports no PE multiple pulmonary nodules could be due to COVID but also concern for malignancy needs close follow-up Dr. Bates accepts patient Treatments: Heparin drip, asa Re-evaluations: [ ] Discussion: Patient 80-year-old male presenting today with increasing weakness. Recent admission to the hospital for COVID pneumonia. Over last 2 days he has just having increasing chest pain inability to get dressed poor functioning. He is afebrile no leukocytosis no concern for sepsis at this time. Head CT is negative for intracranial hemorrhage. INR subtherapeutic. He is found to have NSTEMI with elevated troponins. No on heparin drip. Reports his chest pain has improved since being here. CT angio does not show any evidence of pulmonary embolism but does show some pulmonary nodules could be COVID related versus malignant. Discharge Plan Departure Patient Disposition: Admitted As Inpatient Clinical Impression: Non-ST elevation [place] (NSTEMI) Admit Date/Time: 05/26/25 21:07 Admit Provider: Bossman Bates
--- NOTE | 2025-05-26 18:08 | DI.CT.S_ITS ---
PROCEDURE: CT HEAD/BRAIN WO CON INDICATIONS: weakness on coumadin TECHNIQUE: Noncontrast 4.5 mm thick angled axial sections acquired from the foramen magnum to the vertex, with coronal and sagittal reformats. For radiation dose reduction, the following was used: automated exposure control, adjustment of mA and/or kV according to patient size. COMPARISON: , CT, CT HEAD/BRAIN WO CON, 12/21/2023, 14:10. FINDINGS: Image quality: Diagnostic. CSF spaces: Basal cisterns are patent. No extra-axial fluid collections. The ventricles are symmetric in size and shape. Brain: No intracranial bleeds or mass effect. There is cerebral volume loss, with resultant ventricular and sulcal prominence. There are periventricular and deep white matter chronic small vessel ischemic changes. There is intracranial internal carotid artery atherosclerosis. Skull and face: Calvarium and visualized facial bones appear intact, without suspicious lesions. Sinuses: Visualized sinuses and mastoids are clear. IMPRESSION: 1. No acute intracranial process. 2. Moderate atrophy and chronic microvascular ischemic changes. Dictated by: Marcella Stevenson M.D. on 05/26/2025 at 18:51 Approved by: Marcella Stevenson M.D. on 05/26/2025 at 18:52
[2025-05-26 18:19] LABS: INR 1.7 (0.9-1.3); Prothrombin Time 19.2 SECONDS (9.4-12.5)
[2025-05-26 18:21] LABS: PTT Partial Thromboplastin Tim 34 SECONDS (25.1-36.5)
[2025-05-26 19:46] LABS: Troponin I 0.274 ng/mL (0.01-0.034)
--- NOTE | 2025-05-26 20:53 | DI.CT.S_ITS ---
PROCEDURE: CT ANGIO CHEST PE PROTOCOL INDICATIONS: chest pain eleveated trop recent admission TECHNIQUE: After the administration of intravenous contrast, 2 mm thick sections acquired from the pulmonary apices to the posterior costophrenic angles. 3-dimensional maximum intensity projection (MIP) coronal and sagittal reformats were then acquired through the thorax. For radiation dose reduction, the following was used: automated exposure control, adjustment of mA and/or kV according to patient size. COMPARISON: None. FINDINGS: Image quality: Diagnostic. Pulmonary arteries: Pulmonary arteries are normal in size, and demonstrate no intraluminal filling defects to suggest central pulmonary embolism. Lower Neck: No enlarged lymph nodes. Thyroid: No thyroid nodules which require sonographic follow up, per consensus guidelines. Axillae: No enlarged lymph nodes. Chest Wall: Bilateral gynecomastia. Bones: Changes of long segment thoracic lumbar posterior spinal instrumented fusion. Cement augmentation at T4. No lytic or blastic osseous lesion. Lungs and Pleura: No pneumothorax. No pleural effusion. Moderate paraseptal emphysema. Left upper lobe subpleural 15 mm pulmonary nodule (5/23). Right upper lobe 11 mm solid pulmonary nodule (5/132). Right middle lobe 12 mm solid pulmonary nodule (5/161). Patchy ground-glass opacities in both lungs. . Heart: Mild cardiomegaly. Triple-vessel coronary artery calcifications. Aortic valve calcifications. Thoracic Vessels: No aortic aneurysm. Mediastinum and [place]: No enlarged lymph nodes. Esophagus: No wall thickening. No hiatal hernia. Upper Abdomen: Visualized upper abdomen solid organs and bowel loops appear normal. IMPRESSION: 1. No pulmonary embolus. 2. Patchy ground-glass opacities throughout both lungs are concerning for multifocal pneumonia, such as COVID. 3. Multiple bilateral solid pulmonary nodules measure up to 15 mm in the left lung lobe and 12 mm in the right lung. Given recent multifocal pneumonia, recommend short interval follow-up chest CT in 4 weeks, to exclude underlying neoplastic process. 4. Moderate to severe coronary artery calcifications. Correlate with risk factors, symptoms, and consider cardiology referral versus lifestyle modifications. Communication: The above findings were discussed with the ordering clinician, Dr. You, by Dr. Montero via telephone on 05/26/2025 at 10:45 pm. Dictated by: Yogesh Montero M.D. on 05/26/2025 at 22:38 Approved by: Yogesh Mnotero M.D. on 05/26/2025 at 22:48
[2025-05-26] MEDS: methylPREDNISolone succ 125 MG/2 ML VIAL IV (21:01)
[2025-05-26] MEDS: ASPIRIN 81 MG CHEW TAB 324 MG PO (21:01)
[2025-05-26] MEDS: diphenhydrAMINE 50 MG/ML VIAL 25 MG IV (21:02)
[2025-05-26] MEDS: HEPARIN DRIP 25,000 UNIT/500 ML IV.SOLN 20 UNIT IV (22:10)
[2025-05-26] MEDS: HEPARIN 5,000 UNIT/ML VIAL 5000 UNIT IV (22:10)
[2025-05-27] VITALS (7 sets, daily range): BP systolic 117–137; BP diastolic 66–84; PULSE 63–130; RESP 16–22; TEMP 35.8–36.6; O2SAT 91–98
[2025-05-27 00:27] LABS: PTT Partial Thromboplastin Tim 133 SECONDS (25.1-36.5)
--- NOTE | 2025-05-27 01:41 | PM.HP.1 ---
History of Present Illness History of Present Illness Date Patient Seen: 05/27/25 Time Patient Seen: 01:42 Chief complaint: Afib and weakness Narrative: The pt is a 80 yo with a hx of a-fib on coumadin, CAD, chronic anemia, COPD on CPAP with oxygen at night, CHF, HTN who was hospitalized last week and was discharged on 05/19/25. Since being home he states that his weakness has become significantly worse as well as chest palpatations. In the ER he reported chest pain but denied this to me. He normally is very sedentary at home using a walked to ambulate but rarely leaves his house or walks much. He denies any SOB, productive sputum, dyspnea fevers, or chills since being home. He does not smoke or drink alcohol. [facility] Medical History Gout Cognitive impairment, mild, so stated Low back pain Constipation Essential tremor Atrial fibrillation HLD (hyperlipidemia) CAD (coronary artery disease), [place] coronary artery Anemia GERD (gastroesophageal reflux disease) Diabetes mellitus COPD (chronic obstructive pulmonary disease) HTN (hypertension) Diastolic CHF Surgical History H/O rotator cuff surgery H/O arthroscopic knee surgery History of back surgery H/O abdominal surgery Family History Mother Diabetes mellitus Cancer Father Diabetes mellitus Cancer Social History marital status: household members: spouse alcohol intake: never Meds Home Medications and Allergies Home Medications ?Medication ?Instructions ?Recorded ?Confirmed ?Type albuterol sulfate 90 mcg/actuation 2 puff INH Q6HP PRN Shortness Of 05/20/13 05/26/25 History aerosol inhaler (Ventolin HFA) Breath #0 puffs aspirin 81 mg tablet,delayed 81 mg PO 0630 06/07/18 05/26/25 History release atorvastatin 40 mg tablet 1 tab PO BEDTIME 06/07/18 05/26/25 History cholecalciferol (vitamin D3) 25 1,000 unit PO QAM 06/07/18 05/26/25 History mcg (1,000 unit) capsule (Vitamin D3) doxazosin 8 mg tablet 8 mg PO 0630 06/07/18 05/26/25 History nitroglycerin 0.4 mg sublingual 0.4 mg sublingual Q5-15M PRN Chest 06/07/18 05/26/25 History tablet Pain pantoprazole 20 mg tablet,delayed 20 mg PO QAM 06/07/18 05/26/25 History release propranolol 60 mg tablet 1 tab PO TID 06/07/18 05/26/25 History gabapentin 100 mg capsule 100 mg PO TID #90 caps 07/23/18 05/26/25 Rx allopurinol 100 mg tablet 100 mg PO QAM 07/23/21 05/26/25 History duloxetine 60 mg capsule,delayed 60 mg PO BEDTIME 07/23/21 05/26/25 History release insulin glargine 100 unit/mL (3 36 unit SUBCUT DAILY 02/06/25 05/26/25 History mL) subcutaneous pen (Lantus Solostar U-100 Insulin) metformin 500 mg tablet,extended 1,000 mg PO BID 02/06/25 05/26/25 History release 24 hr torsemide 20 mg tablet 20 mg PO DAILY 02/06/25 05/26/25 History warfarin 5 mg tablet 5 mg PO .COMPLEX 05/16/25 05/26/25 History levothyroxine 175 mcg tablet 175 mcg PO DAILY 05/26/25 05/26/25 History oxybutynin chloride 5 mg tablet 5 mg PO DAILY 05/26/25 05/26/25 History primidone 50 mg tablet 50 mg PO DAILY 05/26/25 05/26/25 History repaglinide 0.5 mg tablet 0.5 mg PO 3XD 05/26/25 05/26/25 History Allergies Allergy/AdvReac Type Severity Reaction Status Date / Time fentanyl (FENTANYL) Allergy Severe HIVES, Verified 05/16/25 01:24 ITCHING iodine (IODINE) Allergy Severe RASH - Verified 05/16/25 01:24 TOPICAL AND IV CONTRAST shellfish derived (SHELLFISH Allergy Severe Abdominal Verified 05/16/25 01:24 DERIVED) Pain cyclobenzaprine Allergy Intermediate ITCHING Verified 05/16/25 01:24 (CYCLOBENZAPRINE) diclofenac (DICLOFENAC) Allergy Intermediate ITCHING Verified 05/16/25 01:24 methadone (METHADONE) Allergy Intermediate ITCHING Verified 05/16/25 01:24 hydromorphone (HYDROMORPHONE) Allergy Mild ITCHING Verified 05/16/25 01:24 hydroxyzine (HYDROXYZINE) Allergy Mild FEVER, Verified 05/16/25 01:24 SWEATS ibuprofen (IBUPROFEN) Allergy Unknown Verified 05/16/25 01:24 aspirin (ASPIRIN) AdvReac Severe STOMACH Verified 05/16/25 01:24 PAIN & HIVE W/325MG, CAN TAKE 81 MG solifenacin (From [facility]) AdvReac Unknown INCREASE Verified 05/16/25 01:24 PVR AND URINARY SX RACHEL AdvReac Unknown DOES NOT Uncoded 05/16/25 01:24 WORK Exam Vital Signs (past 8 hours): - 05/26/25 18:00 05/26/25 18:01 05/26/25 18:01 Temperature Pulse Rate 93 H 93 H Respiratory Rate 18 20 Blood Pressure 137/64 Pulse Oximetry 96 95 Oxygen Delivery Method Oxygen Flow Rate 05/26/25 18:30 05/26/25 19:00 05/26/25 19:30 Temperature Pulse Rate 127 H 126 H 98 H Respiratory Rate 24 20 Blood Pressure Pulse Oximetry 97 95 96 Oxygen Delivery Method Room Air Oxygen Flow Rate 05/26/25 20:00 05/26/25 20:30 05/26/25 21:00 Temperature Pulse Rate 131 H 96 H 94 H Respiratory Rate 35 H 36 H Blood Pressure Pulse Oximetry 96 96 96 Oxygen Delivery Method Oxygen Flow Rate 05/26/25 21:30 05/26/25 21:42 05/26/25 22:04 Temperature Pulse Rate 121 H 95 H Respiratory Rate 18 35 H Blood Pressure Pulse Oximetry 97 96 Oxygen Delivery Method Room Air Oxygen Flow Rate 05/26/25 23:00 Temperature 97.2 F L Pulse Rate 75 Respiratory Rate 20 Blood Pressure 144/81 H Pulse Oximetry 95 Oxygen Delivery Method Oxygen Flow Rate 0 Oxygen Delivery Method Room Air Oxygen Flow Rate 0 Const General: cooperative, comfortable, well developed and No acute distress Resp Effort & Inspection: normal respiratory effort Auscultation: clear to auscultation bilaterally Cardio Rate: regular rate Rhythm: regular rhythm GI Inspection: obesity Auscultation: normal bowel sounds Objective Labs 05/26/25 17:08 05/26/25 17:08 Labs: Laboratory Results - last 24 hr 05/26/25 05/26/25 05/26/25 17:08 19:03 23:54 WBC 9.7 RBC 4.07 L Hgb 12.2 L Hct 36.5 L MCV 89.5 MCH 30.0 MCHC 33.5 RDW 17.4 H Plt Count 185 Neut % (Auto) 84.6 H Lymph % (Auto) 7.1 L [place] % (Auto) 8.0 Eos % (Auto) 0.2 L Baso % (Auto) 0.1 Neut # (Auto) 8200 H Lymph # (Auto) 700 L [place] # (Auto) 800 Eos # (Auto) 0 Baso # (Auto) 0 PT 19.2 H INR 1.7 H APTT 34 133 H* D Sodium 138 Potassium 4.0 Chloride 100 Carbon Dioxide 28 BUN 24 H Creatinine 1.14 Estimated GFR > 60 BUN/Creatinine Ratio 21.1 Glucose 205 H POC Whole Bld Glucose Calcium 9.4 Magnesium 1.6 Total Bilirubin 1.0 AST 24 ALT 24 Alkaline Phosphatase 61 Troponin I 0.235 H* 0.274 H* NT-Pro-B Natriuret Pep 2130 H Total Protein 7.7 Albumin 4.0 Globulin 3.7 Albumin/Globulin Ratio 1.1 Lipase 11 L 05/27/25 00:41 WBC RBC Hgb Hct MCV MCH MCHC RDW Plt Count Neut % (Auto) Lymph % (Auto) [place] % (Auto) Eos % (Auto) Baso % (Auto) Neut # (Auto) Lymph # (Auto) [place] # (Auto) Eos # (Auto) Baso # (Auto) PT INR APTT Sodium Potassium Chloride Carbon Dioxide BUN Creatinine Estimated GFR BUN/Creatinine Ratio Glucose POC Whole Bld Glucose 179 H Calcium Magnesium Total Bilirubin AST ALT Alkaline Phosphatase Troponin I NT-Pro-B Natriuret Pep Total Protein Albumin Globulin Albumin/Globulin Ratio Lipase Assessment & Plan Assessment & Plan narrative: I discussed the pt's presenting symptoms, labs and imaging with the ER provider and agree with the decision for admission. I have reviewed the labsl showing the elevated troponin of 0.274- troponin was not obtained on his most recent hospitalization last week, normal CBC, with a normal WBC, I have reviewed the CXR showing unchanged infiltrates compared to last week. I have reviewed the CT chest myself showing no PE, multifocal ground glass infiltrates. 1. Elevated troponin- uncertain if this truely represents NSTEMI vs elevation of the troponin due to COVID. We will repeat throughout the next day, monitor on telemetry. The ER provider has talked to cardiology reducing salon attendant who is recommending inpatient monitoring. NTG has been ordereed and heparin drip. 2. Debility/ Weakness- pt reports that he is unable to go home because of his progressive post - COVID weakness, PT/OT has been consulted. We discussed possible SNF placement. He was sent home on home health last week. 3. Atrial FIbrillation- rate controlled at this time, sub-theraputic on INR, will recheck on daily basis, was at theraputic last week. 4. Post COVID pneumonia- most likely inflammation, normal WBC, on RA with SaO2-96%, not clinically acute. support with breathing tx, CT scan of chest reviewed, 5. COPD - noted, chronic 6. HTN- restarted home meds, 7. hx of diastolic CHF- not starting IVF in light of elevated BNP, Time-Based Coding :: [TOTAL MINUTES] spent with patient and on the chart (including review of chart, obtaining history, exam, reviewing outside data, placing orders, documenting exam and treatment plan, and counseling patient) on [DATE].
[2025-05-27] MEDS: LEVOTHYROXINE 75 MCG TABLET PO (06:22)
[2025-05-27] MEDS: LEVOTHYROXINE 100 MCG TABLET PO (06:22)
[2025-05-27] MEDS: PANTOPRAZOLE DR 20 MG TABLET PO (06:22)
[2025-05-27] MEDS: DOXAZOSIN 2 MG TABLET 8 MG PO (06:47)
--- NOTE | 2025-05-27 07:01 | PC.NURSE ---
professor of industrial technology attempted to draw PTT and AM bloodwork. Unable to obtain. Wire Twister not made aware. When Wire Twister found out attempted bloodwork unsuccessfully. When AM slabbing machine operator arrived also unable to obtain. made aware. Order to hold heparin drip until PTT can be drawn. Ultra sound guided IV trained nurse to come to floor to place line and draw necessary bloodwork.
[2025-05-27 07:32] LABS: Add Manual Diff / Slide Review NO; Hematocrit 37.1 % (41-53); Hemoglobin 12.5 g/dL (13.5-17.5); Lymphocytes Absolute Auto 600 /uL (1100-4500); Mean Corpuscular HGB Conc 33.6 % (30-36); Mean Corpuscular Hemoglobin 29.9 PG (26-34); Mean Corpuscular Volume 89.2 fL (80-100); Platelet Count 184 X10^3/uL (150-400)
[2025-05-27 07:33] LABS: Blood Urea Nitrogen 26 mg/dL (9-20); Calcium 9.5 mg/dL (8.4-10.2); Carbon Dioxide 23 mmol/L (22-32); Chloride 102 mmol/L (98-107); Estimated Glomerular Filt Rate > 60 mL/min (>60); Glucose 253 mg/dL (70-99); Potassium 4.7 mmol/L (3.4-5.1); Sodium 139 mmol/L (137-145)
[2025-05-27 07:34] LABS: HEMOLYSIS 82 (0-50)
[2025-05-27 07:39] LABS: INR 1.5 (0.9-1.3); Prothrombin Time 16.8 SECONDS (9.4-12.5)
[2025-05-27] MEDS: ALBUTEROL/IPRATROPIUM 3 ML AMPUL INH (07:40)
[2025-05-27 07:42] LABS: NT-proBNP (BNP-Adult 18+) 2710 pg/mL (<450)
[2025-05-27 07:47] LABS: Troponin I 0.194 ng/mL (0.01-0.034)
[2025-05-27 07:48] LABS: PTT Partial Thromboplastin Tim 68 SECONDS (25.1-36.5)
[2025-05-27] MEDS: INSULIN GLARGINE 100 UNIT/ML 3ML PEN 36 UNIT SUBCUT (08:23)
[2025-05-27] MEDS: GABAPENTIN 100 MG CAPSULE PO ×3 (08:29→21:01)
[2025-05-27] MEDS: PROPRANOLOL 10 MG TABLET 60 MG PO ×2 (08:29→15:08)
[2025-05-27] MEDS: TORSEMIDE 10 MG TABLET 20 MG PO (08:29)
[2025-05-27 09:11] LABS: Cholesterol 121 mg/dL (140-199); HDL Cholesterol 30 mg/dL (40-60); Magnesium 1.8 mg/dL (1.6-2.3); Triglycerides 104 mg/dL (35-150)
--- NOTE | 2025-05-27 10:23 | PC.NURSE ---
PCT William noted dark stool, tested guiac positive. Pt is currently on heparin drip. Notified MD Diaz. No new orders at this time.
--- NOTE | 2025-05-27 11:40 | PT.IIE ---
Surgical History (Last Reviewed 05/19/25 @ 12:53 by Nikhil Bennett MD) H/O abdominal surgery H/O arthroscopic knee surgery H/O rotator cuff surgery History of back surgery Medical History (Last Reviewed 05/19/25 @ 12:53 by Nikhil Bennett MD) Anemia Atrial fibrillation CAD (coronary artery disease), [place] coronary artery Cognitive impairment, mild, so stated Constipation COPD (chronic obstructive pulmonary disease) Diabetes mellitus Diastolic CHF Essential tremor GERD (gastroesophageal reflux disease) Gout HLD (hyperlipidemia) HTN (hypertension) Low back pain Physical Therapy Inpatient Evaluation/Re-Eval M1 PT/OT-IP Prior Functional Status Start: 05/27/25 12:07 Freq: NEEDED Status: Active Protocol: Document 05/27/25 11:40 AB (Rec: 05/27/25 12:23 AB Desktop) Medical Review Prior Functional Status Medical History Yes Reviewed Communication able to make needs known Mobility and Gait pt was just admitted 05/16/25 to 05/19/25 in the hospital for COVID and pt d/c'd home. pt stated that he was not doing too well and not able to move around when he went home. Prior to Covid admission; pt was modified independent with all mobilities and ambulation using a 4WW with occasional use of quad cane; pt stated that spouse was assist him as needed but since spouse also is recovering from COVID, spouse unable to assist pt. pt has h/o falls. Social History Household Members spouse Living Arrangements House Number of Floors ( One Floor Floors) Number of Stairs To 3 steps to enter from the garage with B rails Enter/Railing? Home Environment Standard Height Toilet,Tub/Shower Home Equipment Front Wheel Walker,Four Wheel Walker,Quad Cane,Shower Seat without Backrest,Hand Held Shower,Grab Bars Near Toilet,Grab Bars In Shower M2 PT-IP Current Condition Start: 05/27/25 12:07 Freq: NEEDED Status: Active Protocol: Document 05/27/25 11:40 AB (Rec: 05/27/25 12:23 AB Desktop) Physical Therapy Current Condition Current Condition Evaluation Date 05/27/25 Treatment Diagnosis NSTEMI; difficulty in walking Onset Date 05/26/25 M3 PT-IP Subjective Start: 05/27/25 12:07 Freq: NEEDED Status: Active Protocol: Document 05/27/25 11:40 AB (Rec: 05/27/25 12:23 AB Desktop) Subjective Physical Therapy Visit Type Type Initial Evaluation Visit Start Time 11:40 Visit Stop Time 12:05 Number of TUBER HELPER Visits 0 Physical Therapy Visit Comments Patient Comments agreeable to do PT Therapy Pain Assessment Pain When Pain Assessed At Rest Pain Present Pain Present Pain Reported Location Back Intensity 7 Scale Used Numeric (0 - 10) Description Chronic Pain Management Distraction,Modification of Treatment,Re-positioning Techniques M4 PT-IP Mobility and Gait Start: 05/27/25 12:07 Freq: NEEDED Status: Active Protocol: Document 05/27/25 11:40 AB (Rec: 05/27/25 12:23 AB Desktop) PT-Bed Mobility Assessment Supine to Sit Supine to Sit Maximum Assistance,Head of Bed Elevated,Bedrails Scooting Scooting to Edge of Maximum Assistance Bed PT-Transfer Assessment Sit to and From Stand Sit to and from Maximum Assistance,1 Person Assistance,Use of Upper Stand Extremities Equipment Transfer Assistive Gait Belt,Front Wheeled Walker Device Orthotic/Prosthetic No Devices or Brace: Transfers Transfer Destination Chair Transfer Technique Stand Step Pivot Transfer Ability Level of Assist Maximum Assistance,1 Person Assistance,Use of Upper Extremities Comments Mobility Comments pt in bed and agreed to do PT. obtained PLOF and home set up. BP: 117/72, O2 sat: 96 and SC 80 (+) RUE tremors completed supine to sit max A and max cues with HOB elevated and use of bed rail. max A for sitting balance with increase posterior trunk lean and LOB. repositioned pt and cued to correct retrolean. sit to stand from EOB max A and max cues and step transfer to chair using FWW max A and max cues. pt refused to ambulate. positioned pt on the chair. call light and table placed within reach. informed nurse regarding pt's level of assistance. informed pt regarding dc plan and pt stated that he still does not want to go to SNF but it depends if spouse will be able to assist him or not. Gait Assessment Comments Gait Comments only able to take steps to transfer max A using FWW PT-Balance Assessment Sitting Balance and Reactions Static Sitting Fair Balance Ability Dynamic Sitting Poor Balance Ability Standing Balance and Reactions Static Standing Poor Balance Ability Dynamic Standing Poor Balance Ability Device Used FWW M5 PT-IP Objective Assessments Start: 05/27/25 12:07 Freq: NEEDED Status: Active Protocol: Document 05/27/25 11:40 AB (Rec: 05/27/25 12:23 AB Desktop) Orientation Orientation/Cognition Level of Alertness Alert Orientation Name,Place,Situation Language Function Hard of Hearing Ability Safety Awareness Decreased Safety Awareness Memory Description Short Term Impaired Gross Range of Motion Lower Extremity ROM Assessment Within Functional Limits Strength Comments Strength Comments LLE: 4-/5 RLE: 3+/5 Muscle Tone Comments Muscle Tone Comments (+) R UE tremors M6 PT-IP Treatment Start: 05/27/25 12:07 Freq: NEEDED Status: Active Protocol: Document 05/27/25 11:40 AB (Rec: 05/27/25 12:23 AB Desktop) Physical Therapy Treatment Education Education Provided Safety M7 PT-IP Assessment and Plan Start: 05/27/25 12:07 Freq: NEEDED Status: Active Protocol: Document 05/27/25 11:40 AB (Rec: 05/27/25 12:23 AB Desktop) PT Summary Assessment and Plan Potential Rehabilitation Fair Potential Status of Condition Evolving at Evaluation Summary Impairments Pain,ROM,Strength,Balance,Coordination,Sensation,Tone, Cognition,Bed Mobility,Transfers,Gait,Activity Tolerance Assessment Summary pt is an 80 y/o M who is admitted for NSTEMI. pt with recent hospitalization for COVID 05/16/25 to05/19/25. pt requiring max A for bed mobility and transfers using FWW and unable to tolerate much activity and not able to ambulate at this time. pt will benefit from SNF. pt stated that he does not want to go to SNF but it depends if spouse will be able to assist him or not. will continue to assess progress. Goals Bed Mobility Goal Minimal Assistance Transfer Goal Minimal Assistance,Front Wheeled Walker Gait Goal Minimal Assistance,Front Wheel Walker Gait Distance 50 Other Goals improve bed mobility, transfers, ambulation using 4WW 100 ft SBA up/down 3 steps B rails SBA Days to Meet Goals 10 Frequency of Treatment Frequency Of Once a Day Treatment Treatment Plan Physical Therapy Bed Mobility Training,Transfer Training,Gait Training, Treatment Plan Therapeutic Exercise,Balance Retraining,Discharge Planning,Hot or Cold Pack,Neuromuscular Re-ed, Coordination Retraining,Manual Therapy Precautions Other Precautions falls Recommendations To Nursing Amount of Assist 2 Person Assist Needed Discharge Recommendations PT Discharge SNF Rehab Recommendations Transportation Needs Wheelchair/Cabulance at Discharge - PT assist 1
--- NOTE | 2025-05-27 11:40 | PC.NURSE ---
Pt stated need to use commode. Helped pt to sit up in bed and swing legs over side, however pt unable to stay sitting up at edge of bed even with support, keeps drifting backwards and asked to lie down for a moment. Assisted pt back to bed, used bedpan for BM. Awaiting PT eval for further information.
[2025-05-27] MEDS: INSULIN LISPRO 100 UNIT/ML 3ML VIAL SUBCUT ×3 (12:09→16:33)
--- NOTE | 2025-05-27 14:48 | DI.ECHO.S_ITS ---
[facility] : : [id number] : [place] : : [id number] : : Phone: [phone] Echocardiogram Report + + :Name: ELAINE CAO Study Date: 05/28/2025 Height: 72 in : :[facility] ReadingLocation: Weight: 252 lb : : Gender: Male BSA: 2.4 m2 : :: 1945 Age: 80 yrs BP: 152/77 mmHg: :Reason For Study: NSTEMI : :Ordering Physician: NIKI, : :MADAN Performed By: Teja Velarde : :Referring: MADAN PRINCE : + + Interpretation Summary Technically difficult study. 1) Mildly increased left ventricular thickness (concentric) with normal size, normal wall motion, and normal systolic function (EF 60-65%). 2) Mildly enlarged right ventricle with normal function. 3) There is mild aortic stenosis (mean gradient 8mmHg, valve area 1.5cm2, severity ratio 0.32). 4) Compared to the Echo done 12/22/2023, mild aortic stenosis is present on this study. Procedure: A two-dimensional transthoracic echocardiogram with color flow and Doppler was performed. A contrast injection of Definity was performed to improve assessment of LV function. The study quality was technically difficult. Comparison is made with the echocardiogram of 12/22/2023. The patient was in atrial fibrillation with heart rates between 64-95 bpm during the exam. Left Ventricle: The left ventricle is normal in size. There is mild concentric left ventricular hypertrophy. There is no ventricular septal defect visualized. The ejection fraction is estimated to be 60-65%. Left ventricular systolic function appears normal without focal wall motion abnormalities. Diastolic function could not be accurately assessed due to atrial fibrillation. Right Ventricle: The right ventricle is mildly dilated. The right ventricular systolic function is normal. Atria: The left atrium grossly appears normal in size. The right atrium grossly appears normal in size. The interatrial septum is not well visualized. Mitral Valve: There is mild mitral annular calcification. The mitral valve is grossly normal. There is trace mitral regurgitation. Aortic Valve: The aortic valve is trileaflet. The aortic valve is mildly calcified. There is mild aortic stenosis. No aortic regurgitation is present. Tricuspid Valve: The tricuspid valve is not well visualized, but is grossly normal. There is mild tricuspid regurgitation. Pulmonic Valve: The pulmonic valve is not well seen, but is grossly normal. There is no pulmonic valvular regurgitation. Great Vessels: The aortic root is borderline dilated. The ascending aorta is at the upper limits of normal in size. The pulmonary artery is not well visualized, but is probably normal size. The IVC is dilated, but has some respiratory collapse suggesting high central venous pressure. Pericardium/ Pleura There is an anterior echo-free space consistent with a fat pad. MMode/2D Measurements & Calculations LVIDd: 3.9 cm LVOT diam: 2.5 cm LVIDs: 2.7 cm Ao root diam: 3.8 cm FS: 30.6 % asc Aorta Diam: 3.8 cm EPSS: 1.0 cm IVSd: 1.2 cm LVPWd: 0.72 cm LV estes. diameter/BSA (cm/m^2): 1.7 LV sys. diameter/BSA (cm/m^2): 1.2 LA A2 area: 20.4 cm2 RA long axis: 4.7 cm LA A4 area: 28.2 cm2 RA area: 13.4 cm2 LA length (vol): 7.4 cm RA vol: 32.5 ml LA vol: 66.3 ml RA : 13.8 ml/m2 LA vol index: 28.2 ml/m2 IVC diam: 2.5 cm RVD1 (basal): 4.6 cm RVD2 (mid): 3.9 cm TAPSE: 2.6 cm Doppler Measurements & Calculations Ao V2 max: 184.8 cm/sec LVOT Max Cristóbal: 45.9 cm/sec Ao V2 mean: 132.5 cm/sec LV V1 max P.84 mmHg Ao max P.7 mmHg LV V1 VTI: 8.3 cm Ao mean P.7 mmHg MERON(I,D): 1.5 cm2 Ao V2 VTI: 26.1 cm MERON(V,D): 1.2 cm2 sev ratio: 0.32 MERON indexed to BSA (cm^2/m^2): 0.64 MV E max cristóbal: 62.8 cm/sec TR max cristóbal: 269.4 cm/sec MV A max cristóbal: 60.2 cm/sec TR max P.0 mmHg MV E/A: 1.0 PA V2 max: 120.7 cm/sec Med Peak E' Cristóbal: 7.5 cm/sec PA V2 mean: 86.7 cm/sec E/E' med: 8.4 PA mean P.2 mmHg Lat Peak E' Cristóbal: 6.0 cm/sec PA pr(Accel): 31.0 mmHg E/E' lat: 10.5 E/e' average: 9.4 MV dec time: 0.13 sec SV(LVOT): 39.1 ml Reading Physician:11:34 AM
[2025-05-27 14:53] LABS: PTT Partial Thromboplastin Tim 51 SECONDS (25.1-36.5)
[2025-05-27] MEDS: ACETAMINOPHEN 325 MG TABLET 650 MG PO (15:09)
--- NOTE | 2025-05-27 16:10 | CM.DANOTE ---
DCP Assessment note-Brief pt is a 80yo M admitted with an NSTEMI, post COVID. readmit, here from 05/16-05/19. uses FWW/cane at baseline. discharged home with [facility] but has been very weak at home. SORTER LUMBER STRAIGHTENER reviewed EMR. per PT eval, rec SNF but pt does not want to go to SNF. SORTER LUMBER STRAIGHTENER unable to meet with pt today due to triaging needs. will need untied auth if SNF. SORTER LUMBER STRAIGHTENER will coordinate with pt/spouse tomorrow for SNF referrals/DCP coordination P: SNF vs return home with spouse and [facility] pending pt preference. will continue to follow closely for DCP coordination DARIEL Gamez Discharge Planning/Care Management CM Discharge Assessment Start: 05/26/25 21:42 Freq: Status: Active Protocol: Document 05/27/25 16:07 (Rec: 05/27/25 16:09 [id number]) Discharge Planning Assessment Assigned Discharge DARIEL Jarquin Solutions Engineer Provider [facility] D[facility]/Assigned Kathy, spouse Designee Name Contact Information [phone] Advance Directives? Yes: POLST Advance Directives Yes on File History Provided By Patient,Medical Record Prior Living House Arrangements Household Members spouse Independent with ADL Yes 's Is patient alert and Yes oriented? DME Already Rented / FWW / Walker,Cane Owned Discharge Plan Home Transportation Spouse Arrangement Review Status In Process Please Provide Date 05/27/25 Initial DC Assessment Was Performed Next Review Type Continued Stay Review
--- NOTE | 2025-05-27 16:25 | PC.NURSE ---
Notified by ICU that pt HR dipping into 50s; informed west Arzate who assessed pt; pt reported dizziness, BP WNL, HR ~59-65. Pt is prescribed propranolol 60mg TID which was given shortly before episode. West Arzate informed MD Diaz who adjusted medications (stop propranolol). Pt currently sitting upright, talking on phone with , plan of care continues.
[2025-05-27] MEDS: WARFARIN 5 MG TABLET PO (17:01)
--- NOTE | 2025-05-27 17:42 | PM.PN.1 ---
Subjective Subjective Interval history: 80-year-old male with AFib on warfarin, coronary artery disease, chronic anemia, COPD on noninvasive ventilation at night, chronic CHF and hypertension who was admitted early this morning with concern for non ST elevation MD and generalized weakness. He was previously admitted May 16 through May 19 with COVID pneumonia and acute hypoxic respiratory failure as well as generalized weakness that was improving. After returning home, he felt he simply could not take care of himself. He was having some palpitations but initially denied having any chest pain. Today, he tells me he was having chest pain prior to admission. His with whom I spoke after I saw him stated he had not complained to her of any chest pain. He has been on a heparin drip since admission. Nursing noted he passed a black stool this morning. He reported he has had chronic black stools as he takes iron. The nurse did guaiac his stool and it was positive. He tells me his last colonoscopy was approximately 4 years ago. He states he has had 3 total colonoscopies which have all been normal. He does complain of dysuria and asked to have a UA. He reported it as being fairly new. He subsequently told the nurse that he had been having it for 6 months. His reports that each day he has a different list of ailments. She states he tends to be somewhat dramatic with his medical complaints. She states she has been his caregiver for the last 30 years and she is not able to care for him at this time. He is receptive to possible long term facility placement. Exam Vital Signs (past 8 hours): - 05/27/25 14:00 Temperature 96.8 F L Pulse Rate 63 Respiratory Rate 16 Blood Pressure 137/84 Pulse Oximetry 97 Oxygen Flow Rate 0 Oxygen Delivery Method Nasal Cannula Oxygen Flow Rate 0 Narrative Exam Narrative: GEN: Very pleasant elderly male, Alert and oriented x 3, NAD HEENT:NC, Face symmetric CHEST: Respiratory excursions symmetric, coarse but CTAB CV: Irregularly irregular, no M/R/G ABD: Soft, NT/ND, BT present in all 4 quadrants, no organomegaly or masses EXTR: warm, well perfused, no C/C/E SKIN: warm and dry, no rash NEURO: Alert and oriented x 3, nonfocal Objective Labs 05/27/25 07:25 05/27/25 06:45 Labs: Laboratory Results - last 24 hr 05/26/25 05/26/25 05/26/25 17:08 19:03 23:54 WBC RBC Hgb Hct MCV MCH MCHC RDW Plt Count Neut % (Auto) Lymph % (Auto) [place] % (Auto) Eos % (Auto) Baso % (Auto) Neut # (Auto) Lymph # (Auto) [place] # (Auto) Eos # (Auto) Baso # (Auto) PT 19.2 H INR 1.7 H APTT 34 133 H* D Sodium Potassium Chloride Carbon Dioxide BUN Creatinine Estimated GFR BUN/Creatinine Ratio Glucose POC Whole Bld Glucose Calcium Magnesium Troponin I 0.235 H* 0.274 H* NT-Pro-B Natriuret Pep 2130 H Triglycerides Cholesterol LDL Cholesterol, Calc HDL Cholesterol 05/27/25 05/27/25 05/27/25 00:41 06:45 07:25 WBC 11.5 H RBC 4.16 L Hgb 12.5 L Hct 37.1 L MCV 89.2 MCH 29.9 MCHC 33.6 RDW 17.5 H Plt Count 184 Neut % (Auto) 91.6 H Lymph % (Auto) 5.6 L [place] % (Auto) 2.5 L Eos % (Auto) 0.0 L Baso % (Auto) 0.3 Neut # (Auto) 80063 H Lymph # (Auto) 600 L [place] # (Auto) 300 Eos # (Auto) 0 Baso # (Auto) 0 PT 16.8 H INR 1.5 H APTT 68 H D Sodium 139 Potassium 4.7 Chloride 102 Carbon Dioxide 23 BUN 26 H Creatinine 0.98 Estimated GFR > 60 BUN/Creatinine Ratio 26.5 H Glucose 253 H POC Whole Bld Glucose 179 H Calcium 9.5 Magnesium 1.8 Troponin I 0.194 H* NT-Pro-B Natriuret Pep 2710 H Triglycerides 104 Cholesterol 121 L LDL Cholesterol, Calc 70 HDL Cholesterol 30 L 05/27/25 05/27/25 05/27/25 12:08 14:30 16:25 WBC RBC Hgb Hct MCV MCH MCHC RDW Plt Count Neut % (Auto) Lymph % (Auto) [place] % (Auto) Eos % (Auto) Baso % (Auto) Neut # (Auto) Lymph # (Auto) [place] # (Auto) Eos # (Auto) Baso # (Auto) PT INR APTT 51 H D Sodium Potassium Chloride Carbon Dioxide BUN Creatinine Estimated GFR BUN/Creatinine Ratio Glucose POC Whole Bld Glucose 366 H D 190 H D Calcium Magnesium Troponin I NT-Pro-B Natriuret Pep Triglycerides Cholesterol LDL Cholesterol, Calc HDL Cholesterol PFSH Medical History Gout Cognitive impairment, mild, so stated Low back pain Constipation Essential tremor Atrial fibrillation HLD (hyperlipidemia) CAD (coronary artery disease), [place] coronary artery Anemia GERD (gastroesophageal reflux disease) Diabetes mellitus COPD (chronic obstructive pulmonary disease) HTN (hypertension) Diastolic CHF Surgical History H/O rotator cuff surgery H/O arthroscopic knee surgery History of back surgery H/O abdominal surgery Family History Mother Diabetes mellitus Cancer Father Diabetes mellitus Cancer Social History marital status: household members: spouse alcohol intake: never Assessment & Plan Assessment & Plan narrative: 1. Elevated troponin Initially, he complained only of palpitations. After I did mention his absence of anginal symptoms, he stated he had in fact had them. It is unclear to me if that is in fact accurate as he had not reported those to the emergency department physician nor the telehealth hospitalist. His troponins were trended and decreasing. I have ordered an echocardiogram. He continues on a heparin drip. We will plan to discontinue the heparin drip in the morning especially if his INR is therapeutic. Await echocardiogram results. He is not having any anginal symptoms currently. Continue aspirin therapy 2. Heme-positive stool No active melena at this time. However he is chronically anticoagulated. We did discuss that he should an outpatient colonoscopy when he is recovered from his COVID and has further ascertain the extent of his cardiac issues. 3. COVID pneumonia He remained stable in room air. No further intervention needed at this time. 4. Permanent atrial fibrillation He remains presently rate controlled. Continue warfarin. INR is 1.5 today 5. Generalized weakness Await PT and OT evaluations. Suspect he will be best served by long term facility placement. He does appear to be receptive. His spouse reports to me that she is unable to care for him. She also is recovering from COVID. 6. Dysuria Will send a UA 7. COPD No exacerbation. Continue DuoNebs. 8. Hypertension No clear antihypertensive therapy on his Oct. 9. History of chronic diastolic CHF Continue usual dose of torsemide 10. Insulin-dependent diabetes Will place on hi corrective dose sliding scale. Continue Lantus. Continue metformin. 11. Essential tremor He is prescribed propranolol and primidone. He did receive a dose of propranolol today and became bradycardic and dizzy. His propranolol will be held. Code status Full Prophylaxis On a heparin drip and warfarin Disposition Continue acute care Time-Based Coding :: [TOTAL MINUTES] spent with patient and on the chart (including review of chart, obtaining history, exam, reviewing outside data, placing orders, documenting exam and treatment plan, and counseling patient) on [DATE].
[2025-05-27] MEDS: ATORVASTATIN 20 MG TABLET 40 MG PO (21:01)
[2025-05-27] MEDS: SENNOSIDES 8.6 MG TABLET 17.2 MG PO (21:01)
[2025-05-28] VITALS (7 sets, daily range): BP systolic 109–152; BP diastolic 65–81; PULSE 62–82; RESP 16–20; TEMP 35.7–37.3; O2SAT 92–96
[2025-05-28] MEDS: HEPARIN DRIP 25,000 UNIT/500 ML IV.SOLN 20 UNIT IV (01:35)
[2025-05-28 05:46] LABS: Hematocrit 33.0 % (41-53); Hemoglobin 11.3 g/dL (13.5-17.5); Platelet Count 164 X10^3/uL (150-400)
[2025-05-28 05:50] LABS: PTT Partial Thromboplastin Tim 60 SECONDS (25.1-36.5)
[2025-05-28] MEDS: LEVOTHYROXINE 100 MCG TABLET PO (06:42)
[2025-05-28] MEDS: LEVOTHYROXINE 75 MCG TABLET PO (06:43)
[2025-05-28] MEDS: ASPIRIN EC 81 MG TABLET PO (07:05)
[2025-05-28] MEDS: DOXAZOSIN 2 MG TABLET 8 MG PO (07:05)
[2025-05-28] MEDS: PANTOPRAZOLE DR 20 MG TABLET PO (07:05)
--- NOTE | 2025-05-28 07:40 | PC.NURSE ---
Notified inpatient phlebotomy regarding Stat BMP order placed at 07:16
[2025-05-28] MEDS: INSULIN LISPRO 100 UNIT/ML 3ML VIAL SUBCUT ×6 (07:52→17:17)
[2025-05-28] MEDS: INSULIN GLARGINE 100 UNIT/ML 3ML PEN 36 UNIT SUBCUT (07:57)
[2025-05-28 08:07] LABS: Blood Urea Nitrogen 27 mg/dL (9-20); Calcium 8.7 mg/dL (8.4-10.2); Carbon Dioxide 28 mmol/L (22-32); Chloride 100 mmol/L (98-107); Estimated Glomerular Filt Rate > 60 mL/min (>60); Glucose 175 mg/dL (70-99); HEMOLYSIS < 15 (0-50); Potassium 3.7 mmol/L (3.4-5.1); Sodium 134 mmol/L (137-145)
[2025-05-28] MEDS: GABAPENTIN 100 MG CAPSULE PO ×3 (08:14→20:46)
[2025-05-28] MEDS: TORSEMIDE 10 MG TABLET 20 MG PO (08:15)
[2025-05-28 10:40] LABS: INR 1.7 (0.9-1.3); Prothrombin Time 19.4 SECONDS (9.4-12.5)
[2025-05-28 10:52] LABS: Appearance Urine UA CLEAR; Bilirubin Urine UA NEGATIVE (NEGATIVE); Color Urine UA YELLOW; Glucose Urine UA NEGATIVE (Negative); Ketones Urine UA NEGATIVE (NEGATIVE); Leukocyte Esterase Urine UA NEGATIVE (NEGATIVE); Nitrite Urine UA NEGATIVE (Negative); Occult Blood Urine UA NEGATIVE (Negative); Protein Urine UA NEGATIVE (Negative); Specific Gravity Urine UA 1.010 (1.000-1.035); Urobilinogen Urine UA 0.2 E.U./dL (0.2); pH Urine UA 6.0 (4.5-8.0)
[2025-05-28 10:55] LABS: Culture Indicated Urine Cult Not Indicated
[2025-05-28] MEDS: PANTOPRAZOLE 40 MG VIAL IV ×2 (11:11→20:46)
--- NOTE | 2025-05-28 15:20 | CM.DPNOTE ---
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 agreeable to SNF. preference [facility]. can bring trilogy from home. reports that DCP post SNF is home with [facility] and if needed can pay for PP C[facility] for the short term. Per January, can accept pt. Auth secured. time pending. will need trilogy settings in DC orders. PIECE DYEING MACHINE TENDER completed PASRR, hospitalist signed. P: dc to SNF Thursday time pending. continue to follow closely for DCP Coordination DARIEL Gamez
[2025-05-28] MEDS: WARFARIN 5 MG TABLET PO (16:17)
--- NOTE | 2025-05-28 16:24 | P.PN_ITS ---
Subjective Subjective Interval history: 80-year-old male with AFib on warfarin, coronary artery disease, chronic anemia, COPD on noninvasive ventilation at night, chronic CHF and hypertension who was admitted early yesterday morning with concern for non ST elevation UT and generalized weakness. He was previously admitted May 16 through May 19 with COVID pneumonia and acute hypoxic respiratory failure as well as generalized weakness that was improving. After returning home, he felt he simply could not take care of himself. He was having some palpitations but initially denied having any chest pain. Yesterday, he reported that he was having chest pain prior to admission. His with whom I spoke after I saw him stated he had not complained to her of any chest pain, but does sometimes take nitroglycerin even when he is having heartburn pain. He was placed on a heparin drip on admission. Yesterday, he passed a black stool. He reported this is chronic related to him being on iron. However, it was guaiac positive. His last colonoscopy was 4 years ago. He denies any history of abnormal colonoscopies. He did complain of dysuria yesterday. UA was unremarkable. Today, he reports he is feeling about the same overall. He denies any chest pain or shortness a breath. He states he has passed 2 loose bowel movements but states the nurses told him they were guaiac negative. I was unable to confirm this directly with the nursing staff. Exam Vital Signs (past 8 hours): Oxygen Delivery Method Room Air Oxygen Flow Rate 0 Narrative Exam Narrative: GEN: Very pleasant elderly male, Alert and oriented x 3, NAD HEENT:NC, Face symmetric CHEST: Respiratory excursions symmetric, coarse but CTAB CV: Irregularly irregular, no M/R/G ABD: Soft, NT/ND, BT present in all 4 quadrants, no organomegaly or masses EXTR: warm, well perfused, no C/C/E SKIN: warm and dry, no rash NEURO: Alert and oriented x 3, nonfocal Objective Labs 05/28/25 05:22 05/28/25 07:51 Labs: Laboratory Results - last 24 hr 05/27/25 05/27/25 05/28/25 16:25 20:17 05:22 Hgb 11.3 L Hct 33.0 L Plt Count 164 PT INR APTT 60 H D Sodium Potassium Chloride Carbon Dioxide BUN Creatinine Estimated GFR BUN/Creatinine Ratio Glucose POC Whole Bld Glucose 190 H D 139 H Calcium Urine Color Urine Appearance Urine pH Ur Specific [place] Urine Protein Urine Glucose (UA) Urine Ketones Urine Occult Blood Urine Nitrate Urine Bilirubin Urine Urobilinogen Ur Leukocyte Esterase Urine RBC Urine WBC Ur Squamous Epith Cells Urine Bacteria Ur Culture Indicated? Vol Urine Centrifuged 05/28/25 05/28/25 05/28/25 07:39 07:51 10:14 Hgb Hct Plt Count PT INR APTT Sodium 134 L Potassium 3.7 Chloride 100 Carbon Dioxide 28 BUN 27 H Creatinine 0.99 Estimated GFR > 60 BUN/Creatinine Ratio 27.3 H Glucose 175 H POC Whole Bld Glucose 161 H Calcium 8.7 Urine Color Yellow Urine Appearance Clear Urine pH 6.0 Ur Specific [place] 1.010 Urine Protein Negative Urine Glucose (UA) Negative Urine Ketones Negative Urine Occult Blood Negative Urine Nitrate Negative Urine Bilirubin Negative Urine Urobilinogen 0.2 Ur Leukocyte Esterase Negative Urine RBC None seen Urine WBC None seen Ur Squamous Epith Cells None seen Urine Bacteria None seen Ur Culture Indicated? Cult not indicated Vol Urine Centrifuged 10ml (spun) 05/28/25 05/28/25 10:25 11:42 Hgb Hct Plt Count PT 19.4 H INR 1.7 H APTT Sodium Potassium Chloride Carbon Dioxide BUN Creatinine Estimated GFR BUN/Creatinine Ratio Glucose POC Whole Bld Glucose 240 H Calcium Urine Color Urine Appearance Urine pH Ur Specific [place] Urine Protein Urine Glucose (UA) Urine Ketones Urine Occult Blood Urine Nitrate Urine Bilirubin Urine Urobilinogen Ur Leukocyte Esterase Urine RBC Urine WBC Ur Squamous Epith Cells Urine Bacteria Ur Culture Indicated? Vol Urine Centrifuged [facility] Medical History Gout Cognitive impairment, mild, so stated Low back pain Constipation Essential tremor Atrial fibrillation HLD (hyperlipidemia) CAD (coronary artery disease), [place] coronary artery Anemia GERD (gastroesophageal reflux disease) Diabetes mellitus COPD (chronic obstructive pulmonary disease) HTN (hypertension) Diastolic CHF Surgical History H/O rotator cuff surgery H/O arthroscopic knee surgery History of back surgery H/O abdominal surgery Family History Mother Diabetes mellitus Cancer Father Diabetes mellitus Cancer Social History marital status: household members: spouse alcohol intake: never Assessment & Plan Assessment & Plan narrative: 1. Elevated troponin Initially, he complained only of palpitations. Yesterday, after I did mention his absence of anginal symptoms, he stated he had in fact had them. It is unclear to me if that is in fact accurate as he had not reported those to the emergency department physician nor [facility], and his notes that he frequently takes nitroglycerin for heartburn. His troponins were trended and decreasing. Echocardiogram revealed mildly increased LV thickness, normal systolic function with an EF of 60-65%, mildly enlarged right ventricle with normal function, mild aortic stenosis which is new compared to echocardiogram from December of 2023. He continues on a heparin drip, which will be discontinued at 8:30 p.m.. 2. Heme-positive stool No active melena at this time. However he is chronically anticoagulated. We did discuss that he should an outpatient colonoscopy when he is recovered from his COVID and has further ascertained the extent of his cardiac issues. Given his fairly normal-appearing echocardiogram, I have lower concern for an acute cardiac event. However, I am concerned about discontinuing anticoagulation in the setting of recent COVID infection and multifocal COVID pneumonia given the increase prothrombotic risk. Although his BUN is mildly increased since his hospitalization, his hemoglobin overall stable. On May 16 his hemoglobin was 10.0. Since admission it has ranged from 11.3-12.2. Will add pantoprazole 40 mg IV b.i.d. for now. 3. COVID pneumonia He remained stable in room air. No further intervention needed at this time. 4. Permanent atrial fibrillation He remains presently rate controlled. Continue warfarin. INR was 1.5 yesterday, up to 1.7 today. 5. Generalized weakness He has been accepted [facility] May [facility]. 6. Dysuria UA was unremarkable 7. COPD No exacerbation. Continue DuoNebs. 8. Hypertension No clear antihypertensive therapy on his Oct. 9. History of chronic diastolic CHF Continue usual dose of torsemide 10. Insulin-dependent diabetes Continue Lantus and metformin. Blood sugars have been better controlled on the corrective sliding scale high dose 11. Essential tremor He is prescribed propranolol and primidone. He did receive a dose of propranolol yesterday and became bradycardic and dizzy. His propranolol was discontinued Code status Full Prophylaxis On a heparin drip and warfarin, but INR remains subtherapeutic Disposition Continue acute care Time-Based Coding :: [TOTAL MINUTES] spent with patient and on the chart (including review of chart, obtaining history, exam, reviewing outside data, placing orders, documenting exam and treatment plan, and counseling patient) on [DATE].
--- NOTE | 2025-05-28 16:43 | PT.OTN ---
Pt had mobilized with nursing and was sitting up in bedside chair when PT entered the room. He wished to stay seated and notes he will call nursing when ready to return to bed. HE reports he will be DC tomorrow to SNF for rehab
--- NOTE | 2025-05-28 16:55 | PT-IP ANOTE ---
pt was attempted to be seen however he had already mobilized with nursing, he was sitting in the bed side chair x 2 hours he reported and wished to stay there until after dinner. Resume PT tomorrow
--- NOTE | 2025-05-28 18:19 | PC.NURSE ---
Day shift: Patient up OOB to chair for meals. Increasing and improving in mobilization and activity as day progressed. Continue on RA, sats > 95%. Multiple large soft BM on this shift, not tarry or gross blood noted. Medicated for back pain (chronic) as ordered, adequate pain relief provided. Continue on heparin gtts until this Noc shit 2029. No C/O chest pain or dizziness. Occasional incontinence of bowel and bladder. Voiding. Call appropriately for staff assist, call light within reach. Spouse called and updated.
[2025-05-28] MEDS: ATORVASTATIN 20 MG TABLET 40 MG PO (20:46)
[2025-05-29] VITALS: BP 120/69; PULSE 75; RESP 18; TEMP 36.8; O2SAT 97
--- NOTE | 2025-05-29 02:12 | RT ---
patient refused hosp CPAP @ this time. currently on 2L N/C
[2025-05-29 03:40] VITALS: BP 148/75; PULSE 85; RESP 20; O2SAT 97
[2025-05-29] MEDS: LEVOTHYROXINE 75 MCG TABLET PO (06:20)
[2025-05-29] MEDS: DOXAZOSIN 2 MG TABLET 8 MG PO (06:20)
[2025-05-29] MEDS: LEVOTHYROXINE 100 MCG TABLET PO (06:20)
[2025-05-29] MEDS: ASPIRIN EC 81 MG TABLET PO (06:21)
[2025-05-29 06:33] LABS: Add Manual Diff / Slide Review NO; Hematocrit 32.7 % (41-53); Hemoglobin 10.7 g/dL (13.5-17.5); Lymphocytes Absolute Auto 1200 /uL (1100-4500); Mean Corpuscular HGB Conc 32.8 % (30-36); Mean Corpuscular Hemoglobin 29.5 PG (26-34); Mean Corpuscular Volume 90.0 fL (80-100); Platelet Count 156 X10^3/uL (150-400)
[2025-05-29 06:38] LABS: INR 1.9 (0.9-1.3); Prothrombin Time 21.1 SECONDS (9.4-12.5)
[2025-05-29 06:42] LABS: Blood Urea Nitrogen 32 mg/dL (9-20); Calcium 8.6 mg/dL (8.4-10.2); Carbon Dioxide 31 mmol/L (22-32); Chloride 98 mmol/L (98-107); Estimated Glomerular Filt Rate 58 mL/min (>60); Glucose 160 mg/dL (70-99); HEMOLYSIS < 15 (0-50); Potassium 4.0 mmol/L (3.4-5.1); Sodium 135 mmol/L (137-145)
[2025-05-29 07:00] VITALS: BP 152/74; PULSE 83; RESP 16; TEMP 36.4; O2SAT 94
[2025-05-29 08:10] VITALS: O2SAT 96
[2025-05-29] MEDS: INSULIN GLARGINE 100 UNIT/ML 3ML PEN 36 UNIT SUBCUT (08:44)
[2025-05-29] MEDS: INSULIN LISPRO 100 UNIT/ML 3ML VIAL SUBCUT ×2 (08:44→08:51)
[2025-05-29] MEDS: PANTOPRAZOLE 40 MG VIAL IV (08:53)
[2025-05-29] MEDS: TORSEMIDE 10 MG TABLET 20 MG PO (08:54)
[2025-05-29] MEDS: GABAPENTIN 100 MG CAPSULE PO (08:55)
--- NOTE | 2025-05-29 09:22 | P.DS_ITS ---
History of Present Illness History of Present Illness Chief complaint: Afib and weakness Narrative: From H&P: The pt is a 80 yo with a hx of a-fib on coumadin, CAD, chronic anemia, COPD on CPAP with oxygen at night, CHF, HTN who was hospitalized last week and was discharged on 05/19/25. Since being home he states that his weakness has become significantly worse as well as chest palpatations. In the ER he reported chest pain but denied this to me. He normally is very sedentary at home using a walked to ambulate but rarely leaves his house or walks much. He denies any SOB, productive sputum, dyspnea fevers, or chills since being home. He does not smoke or drink alcohol. Hospital course: The patient was readmitted with profound debilitation from his recent COVID illness. Over the weekend he worked physical therapy. He did report dysuria and a UA was checked. He was evaluated for detention facility appropriateness with a debilitation was felt to be a good candidate. He was accepted for ongoing rehabilitation efforts after his debilitating illness with COVID. Discharge Providers Provider Date of admission: 05/26/25 21:07 Discharge Date: 05/29/25 Primary care physician: Corinna Tobias PA-C Consults: 05/26/25 21:07 Consult to Occupational Therapy Evaluate & Treat Comment: Physician Instructions: Evaluate and treat Consult to Physical Therapy Evaluate & Treat Comment: Physician Instructions: Evaluate and Treat 05/26/25 21:49 Consult to Dietitian, Adult Routine Comment: Reason For Exam: decreased appetite, lost 5 lbs Discharge provider: Nikhil Bennett MD Summary Hospital Course Discharge Diagnosis: 1. Elevated troponin Initially, he complained only of palpitations. Yesterday, after I did mention his absence of anginal symptoms, he stated he had in fact had them. It is unclear to me if that is in fact accurate as he had not reported those to the emergency department physician nor the telehealth hospitalist, and his notes that he frequently takes nitroglycerin for heartburn. His troponins were trended and decreasing. Echocardiogram revealed mildly increased LV thickness, normal systolic function with an EF of 60-65%, mildly enlarged right ventricle with normal function, mild aortic stenosis which is new compared to echocardiogram from December of 2023. He continues on a heparin drip, which will be discontinued at 8:30 p.m.. 2. Heme-positive stool No active melena at this time. However he is chronically anticoagulated. We did discuss that he should an outpatient colonoscopy when he is recovered from his COVID and has further ascertained the extent of his cardiac issues. Given his fairly normal-appearing echocardiogram, I have lower concern for an acute cardiac event. However, I am concerned about discontinuing anticoagulation in the setting of recent COVID infection and multifocal COVID pneumonia given the increase prothrombotic risk. Although his BUN is mildly increased since his hospitalization, his hemoglobin overall stable. On May 16 his hemoglobin was 10.0. Since admission it has ranged from 11.3-12.2. Will add pantoprazole 40 mg IV b.i.d. for now. 3. COVID pneumonia He remained stable in room air. No further intervention needed at this time. 4. Permanent atrial fibrillation He remains presently rate controlled. Continue warfarin. INR was 1.5 yesterday, up to 1.7 today. 5. Generalized weakness He has been [facility] May [facility]. 6. Dysuria UA was unremarkable 7. COPD No exacerbation. Continue DuoNebs. 8. Hypertension No clear antihypertensive therapy on his Oct. 9. History of chronic diastolic CHF Continue usual dose of torsemide 10. Insulin-dependent diabetes Continue Lantus and metformin. Blood sugars have been better controlled on the corrective sliding scale high dose 11. Essential tremor He is prescribed propranolol and primidone. He did receive a dose of propranolol yesterday and became bradycardic and dizzy. His propranolol was discontinued Hospital Course: The patient was readmitted with profound debilitation from his recent COVID illness. Over the weekend he worked physical therapy. He did report dysuria and a UA was checked. He was evaluated for detention facility appropriateness with a debilitation was felt to be a good candidate. He was accepted for ongoing rehabilitation efforts after his debilitating illness with COVID. Status at Discharge Cognitive/behavioral status at discharge: oriented Functional status at discharge: uses cane/walker Overall status at discharge: patient is progressing back to baseline Time Spent with Patient Time spent: Greater than 30 minutes Exam Vital Signs (past 8 hours): - 05/29/25 03:40 Pulse Rate 85 Respiratory Rate 20 Blood Pressure 148/75 H Pulse Oximetry 97 Oxygen Flow Rate 2 Oxygen Delivery Method Room Air Oxygen Flow Rate 2 Narrative Exam Narrative: NAD, alert and oriented. Fluent speech. Lungs are clear, normal rate and effort. Heart is regular, no murmur gallop or rub. Abdomen is soft, non distended. Extremities are free of edema. Objective ECG Impression: Intervals [place] Rate: 110 P: NE: QRS: -81 QRSD: 132 T: 0 QT: 320 QTc: 433 Interpretive Statements Atrial fibrillation with rapid ventricular response Left axis deviation Right bundle branch block Lateral infarct , age undetermined Inferior infarct , age undetermined Imaging Echo: Radiologist's impression: 1) Mildly increased left ventricular thickness (concentric) with normal size, normal wall motion, and normal systolic function (EF 60-65%). 2) Mildly enlarged right ventricle with normal function. 3) There is mild aortic stenosis (mean gradient 8mmHg, valve area 1.5cm2, severity ratio 0.32). 4) Compared to the Echo done 12/22/2023, mild aortic stenosis is present on this study. Labs 05/29/25 06:20 05/29/25 06:20 Labs: Laboratory Results - last 24 hr 05/28/25 05/28/25 05/28/25 10:14 10: 11:42 WBC RBC Hgb Hct MCV MCH MCHC RDW Plt Count Neut % (Auto) Lymph % (Auto) [place] % (Auto) Eos % (Auto) Baso % (Auto) Neut # (Auto) Lymph # (Auto) [place] # (Auto) Eos # (Auto) Baso # (Auto) PT 19.4 H INR 1.7 H Sodium Potassium Chloride Carbon Dioxide BUN Creatinine Estimated GFR BUN/Creatinine Ratio Glucose POC Whole Bld Glucose 240 H Calcium Urine Color Yellow Urine Appearance Clear Urine pH 6.0 Ur Specific [place] 1.010 Urine Protein Negative Urine Glucose (UA) Negative Urine Ketones Negative Urine Occult Blood Negative Urine Nitrate Negative Urine Bilirubin Negative Urine Urobilinogen 0.2 Ur Leukocyte Esterase Negative Urine RBC None seen Urine WBC None seen Ur Squamous Epith Cells None seen Urine Bacteria None seen Ur Culture Indicated? Cult not indicated Vol Urine Centrifuged 10ml (spun) 05/28/25 05/28/25 05/29/25 16:40 20:56 06:20 WBC 8.5 RBC 3.63 L Hgb 10.7 L Hct 32.7 L MCV 90.0 MCH 29.5 MCHC 32.8 RDW 17.0 H Plt Count 156 Neut % (Auto) 74.4 Lymph % (Auto) 14.4 L [place] % (Auto) 8.8 Eos % (Auto) 2.1 Baso % (Auto) 0.3 Neut # (Auto) 6300 Lymph # (Auto) 1200 [place] # (Auto) 700 Eos # (Auto) 200 Baso # (Auto) 0 PT 21.1 H INR 1.9 H Sodium 135 L Potassium 4.0 Chloride 98 Carbon Dioxide 31 BUN 32 H Creatinine 1.25 Estimated GFR 58 L BUN/Creatinine Ratio 25.6 H Glucose 160 H POC Whole Bld Glucose 217 H 185 H Calcium 8.6 Urine Color Urine Appearance Urine pH Ur Specific [place] Urine Protein Urine Glucose (UA) Urine Ketones Urine Occult Blood Urine Nitrate Urine Bilirubin Urine Urobilinogen Ur Leukocyte Esterase Urine RBC Urine WBC Ur Squamous Epith Cells Urine Bacteria Ur Culture Indicated? Vol Urine Centrifuged 05/29/25 07:44 WBC RBC Hgb Hct MCV MCH MCHC RDW Plt Count Neut % (Auto) Lymph % (Auto) [place] % (Auto) Eos % (Auto) Baso % (Auto) Neut # (Auto) Lymph # (Auto) [place] # (Auto) Eos # (Auto) Baso # (Auto) PT INR Sodium Potassium Chloride Carbon Dioxide BUN Creatinine Estimated GFR BUN/Creatinine Ratio Glucose POC Whole Bld Glucose 159 H Calcium Urine Color Urine Appearance Urine pH Ur Specific [place] Urine Protein Urine Glucose (UA) Urine Ketones Urine Occult Blood Urine Nitrate Urine Bilirubin Urine Urobilinogen Ur Leukocyte Esterase Urine RBC Urine WBC Ur Squamous Epith Cells Urine Bacteria Ur Culture Indicated? Vol Urine Centrifuged [facility] Medical History Gout Cognitive impairment, mild, so stated Low back pain Constipation Essential tremor Atrial fibrillation HLD (hyperlipidemia) CAD (coronary artery disease), torres martinez coronary artery Anemia GERD (gastroesophageal reflux disease) Diabetes mellitus COPD (chronic obstructive pulmonary disease) HTN (hypertension) Diastolic CHF Surgical History H/O rotator cuff surgery H/O arthroscopic knee surgery History of back surgery H/O abdominal surgery Family History Mother Diabetes mellitus Cancer Father Diabetes mellitus Cancer Social History marital status: household members: spouse alcohol intake: never Discharge Assessment & Plan Assessment and Plan Assessment: 1. Elevated troponin with evidence of demand ischemia. Cardiac echo normal. 2. Heme-positive stool, stable. No melena. 3. Generalized debilitation secondary to COVID pneumonia, improving. Chronic medical conditions: Permanent atrial fibrillation COPD Hypertension Chronic diastolic heart failure Dm 2, insulin dependent Essential tremor Obesity class 1 with BMI of 33.9. Plan of Treatment: Discharge to [facility] for rehabilitation efforts. Discharge Plan Discharge Plan Patient Disposition: SNF Transfer to: [facility] Under care of provider: SNF Provider Provider Discharge Comment: Stable for discharge to rehabilitation unit. Discharge orders & Medications Prescriptions: Continued albuterol sulfate [Ventolin HFA] 90 MCG/PUFF HFA aerosol inhaler 2 puff INH Q6HP PRN (Reason: Shortness Of Breath) Qty: 0 atorvastatin 40 mg tablet 1 tab PO BEDTIME propranolol 60 mg tablet 1 tab PO TID Patient Comments: 0630 1200 2230 pantoprazole 20 mg tablet,delayed release (DR/EC) 20 mg PO QAM doxazosin 8 mg tablet 8 mg PO 0630 aspirin 81 mg Tablet,Delayed Release (Dr/Ec) 81 mg PO 0630 nitroglycerin 0.4 mg Tablet, Sublingual 0.4 mg SUBLINGUAL Q5-15M PRN (Reason: Chest Pain) cholecalciferol (vitamin D3) [Vitamin D3] 1,000 unit Capsule 1,000 unit PO QAM allopurinol 100 mg tablet 100 mg PO QAM duloxetine 60 mg Capsule,Delayed Release(Dr/Ec) 60 mg PO BEDTIME warfarin 5 mg tablet 5 mg PO .COMPLEX Rx Instructions: 5 mg orally daily, except on Tuesdays and Fridays patient takes 1/2 tab; primidone 50 mg tablet 50 mg PO DAILY repaglinide 0.5 mg tablet 0.5 mg PO 3XD oxybutynin chloride 5 mg tablet 5 mg PO DAILY levothyroxine 175 mcg tablet 175 mcg PO DAILY oxycodone 5 mg tablet 5 mg PO 4XD PRN (Reason: pain) Qty: 15 0RF gabapentin 100 mg capsule 100 mg PO TID Qty: 90 0RF torsemide 20 mg tablet 20 mg PO DAILY metformin 500 mg tablet extended release 24 hr 1,000 mg PO BID insulin glargine [Lantus Solostar U-100 Insulin] 100 unit/mL (3 mL) insulin pen 36 unit SUBCUT DAILY Patient Comments: inject 10 units subcutaneously every evening INCREASE 2 units HAFSA... (REFER TO PRESCRIPTION NOTES). Discontinued oxycodone 10 mg tablet 10 mg PO BID PRN (Reason: pain) Follow up/Referrals: Corinna Tobias PA-C [Primary Care Provider, Medical] Diet/Activity/Treatments Diet: Carb-consistent/Diabetic Food texture: Regular Skin/Wound/Dressing Care Report to your healthcare provider any signs of infection, such as:: chills, fever and increased pain Special Rehabilitation Services Reason for rehabilitation: Recovery r/t decondition Rehab type: Physical therapy and Occupational therapy Visit Report/Discharge Packet Stand Alone Forms: Patient Portal/API Discharge Data Primary Care Provider: Corinna Tobias
--- NOTE | 2025-05-29 10:28 | CM.DPC ---
DCP Discharge SNF Per MD, pt remains stable for discharge to SNF today as anticipated and orders completed. SW confirmed that [facility] can still accept and transport around [phone] today. SW secure emailed PASRR, signed med list, script, orders, dc summary to review. Updated residential leasing manager, FIELD SEISMOLOGIST, and RN and provided number to call report. Plan: Patient to d/c to [facility] today via facility w/c van around 1130 before return home. DARIEL Callaway
[2025-05-29 11:00] VITALS: BP 126/72; PULSE 83; RESP 16; TEMP 36; O2SAT 96
--- NOTE | 2025-05-29 12:01 | PC.NURSE ---
This RN gave nurse to nurse report to Pita at [facility] at 11:30 AM today. All questions were answered. Informed nurse Pita that the pt did have a written prescription for oxycodone and that the last time the pt was given oxycodone was at 0622 this morning. Pt has a hx of chronic back and neck pain. VSS, afebrile, A&Ox4, able to make needs known, FWW with two person assist, pt incontinent of bladder and wears a brief. Pt's cellphone, cellphone balance wheel motion inspector, clothing, home ventilator per pt, and his clothes including sweatshirt and multiple changes of clothing and shoes. All questions answered. Pt's short acting insulin and Lantus was sent with him at the time of D/C to [facility].
== END 2025-05-29 11:47 | DRG 948 ==
LOC: ED 16:13 → AC 21:57
PROVIDERS: Family Medicine; Pharmacist Pharmacist Clinician (PhC)/ Clinical Pharmacy Specialist; Admitting Provider Internal Medicine; Emergency Provider Emergency Medicine; PCP Physician Assistant; Visit Provider Internal Medicine
DX: R79.89 Other specified abnormal findings of blood chemistry (principal); I48.21 Permanent atrial fibrillation; I50.30 Unspecified diastolic (congestive) heart failure; J44.0 Chronic obstructive pulmonary disease with (acute) lower respiratory infection; R79.1 Abnormal coagulation profile; I11.0 Hypertensive heart disease with heart failure; R19.5 Other fecal abnormalities; R30.0 Dysuria; G25.0 Essential tremor; E11.9 Type 2 diabetes mellitus without complications; R00.2 Palpitations; T38.3X6A Underdosing of insulin and oral hypoglycemic [antidiabetic] drugs, initial encounter; U09.9 Post COVID-19 condition, unspecified; E78.5 Hyperlipidemia, unspecified; I25.10 Atherosclerotic heart disease of native coronary artery without angina pectoris; K21.9 Gastro-esophageal reflux disease without esophagitis; Z79.84 Long term (current) use of oral hypoglycemic drugs; Z79.01 Long term (current) use of anticoagulants; Z91.148 Patient's other noncompliance with medication regimen for other reason; Z79.4 Long term (current) use of insulin
CPT/HCPCS: 36415; 70450; 71045; 71275; 80048; 80053; 80061; 81001; 82962; 83690; 83735; 83880; 84484; 85014; 85018; 85025; 85049; 85610; 85730; 93005; 93010; 94640; 94760; 94762; 96365; 96375; 97162; 97530; 99284; C8929; J1200; J1644; J1815; J2470; J2919; Q9957; Q9967